=== PATIENT | female | born 1940 | race Caucasian/White ===

== ENCOUNTER → 2016-04-12 | Outpatient (CLI) | payer BC ==
[~2016-04-12] MED LIST: ANAS1TAB19 PO; ASPI81TA28 PO; CALC500C70 PO; CHOL20005 PO; CLB/200 PO; CLB100 PO; CLOP1TAB15 PO; COEN200C4 PO; CRS/10 PO; EXM25C PO; GABA-112 PO; LOPE-5 PO; LOSA1TAB PO; NRN/100 PO; PRLSR20 PO; PROC1TAB18 PO; PRT/20 PO; TRAM-10 PO; TRAS440I2 IV; ULT/50 PO
[2016-04-12 14:53] VITALS: BP 125/73; PULSE 92; TEMP 36.4; O2SAT 96
--- NOTE | 2016-04-12 16:44 | Radiation Oncology Follow-Up ---
Radiation Oncology Follow-Up Date of Visit Apr 12, 2016. Reason For Visit One-month follow-up and cancer survivorship care plan Radiation Completion Date 03/13/16 Diagnosis (1) Breast cancer Status: Resolved Onset Date: 07/23/2015 Location: 07/23/2015 Histology Subtype: ductal Stage: l (A) Permanent Comment: Abnormal left breast mammogram Status post stereotactic biopsy 07/23/2015 revealing infiltrating ductal carcinoma grade 1 Estrogen receptor positive, progesterone receptor positive, and HER-2/mario positive. Status post lumpectomy and sentinel lymph node biopsy 08/11/2015 Stage pT1b pN0M0 Oncotype DX score 28 systemic chemotherapy with TCH Will continue Herceptin for 1 year Status post completion of radiation therapy 03/13/2016 received 5130 cGy utilizing hypo-fractionation Last Edited By: Leonor Pak on Mar 24, 2016 07:57 History of Present Illness Ms. Arnett is a 75-year-old female without a family history of breast cancer. She underwent bilateral digital screening mammograms on 06/30/2014. These were unremarkable with repeat 1 year screening mammogram recommended. This was performed on 07/06/2015. At this time a grouped calcifications was noted in the left central breast posteriorly which appeared to be increased compared to the prior examination. Recommendation was for spot magnification views. Additionally a 9 mm asymmetry was seen within the left lateral breast on the CC view only of uncertain significance. On 07/16/2015 the patient underwent a unilateral left digital diagnostic mammogram and targeted left breast ultrasound. This again identified a 1.1 cm group of calcifications in the left central breast posteriorly which appeared to be increased from prior exam. These were slightly heterogeneous in morphology and were in a linear distribution. Targeted ultrasound showed no suspicious masses. These were given a BI-RADS Category 4 and a biopsy was recommended. On 07/23/2015 a stereotactic biopsy of the left breast was performed. This revealed an infiltrating ductal carcinoma Elisabet grade 1 of 3. 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 No lymphovascular or perineural invasion was seen. Estrogen receptors were positive (70%, moderate). Progesterone receptors were positive (80%, strong). HER-2/mario overexpression was positive (3+ ). The focus of carcinoma was 0.2 cm. The subsequent FISH analysis of HER-2/mario confirm the positive results obtained by IHC. Case: [id number]. Patient was seen by Dr. To Watson for evaluation and discussion of the surgical options. The patient ultimately decided to proceed with a breast conserving therapy. Therefore on 08/11/2015 the patient underwent a left partial breast mastectomy and sentinel node biopsy. 2 sentinel nodes were identified and both were negative by routine staining and by immunohistochemistry to cytokeratin. The partial mastectomy specimen confirmed residual infiltrating ductal carcinoma measuring 0.4 x 0.2 cm. 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 The margins were negative for in situ and invasive carcinoma. The presumptive AJCC stage was pT1b pN0(sn-) ER positive, [place] positive, HER-2/mario positive. Case: [id number]. Patient was seen by Dr. Johnny Goodwin for evaluation of the role of adjuvant therapy. He discussed treatment options and ordered an Oncotype DX test. Based on the preliminary pathology is plan would be to recommend local radiation followed by a year for Herceptin and 5 years of aromatase inhibitor. If however the Oncotype DX testing suggested an adverse prognosis he would discuss the potential benefits of systemic chemotherapy. It is for discussion of the role of radiation that we were asked to see the patient in referral. Her Oncotype DX score came back at 28. She therefore underwent systemic chemotherapy she received [facility]. This was completed on 01/05/2016. She will continue on Herceptin every 3 weeks for 1 year. She returned and underwent CT simulation. She was found to be a candidate for hypo-fractionation. Radiation was completed 03/13/2016. She received 5130 cGy Interim History She's been doing well over the past month. The skin irritation is steadily improved. She has noted no masses or tenderness and no change of the axilla. She's had no swelling of her arm. We reviewed follow-up mammography. She believes she is scheduled for a yearly screening mammogram. She was started on an aromatase inhibitor. She developed feelings of indigestion that occurs especially at night. She discuss this with medical oncology and she was started on Prilosec. She unfortunately has developed a rash on her scalp and right temporal area. She believes this is related to the Prilosec. She plans on holding both medications to see if her symptoms resolve. She has been in contact with medical oncology about her side effects. She has noticed that eating toms does relieve the feeling of indigestion. Allergies Coded Allergies: Hydrocodone (Verified Allergy, Unknown, RASH, HIVES, 11/13/15) PER PATIENT INTERVIEW ([id number]) PATIENT DESCRIBED ITCHY RASH (POTENTIALLY HIVES) AFTER THIRD DOSE OF NORCO, NO SHORTNESS OF BREATHE OR DIFFICULTY BREATHING. RELIEVED WITH BENADRYL. Hydrochlorothiazide w/Spironolacton (Unverified Adverse Reaction, Unknown , GI SYMPTOMS,NAUSEA AND VOMITING, 11/13/15) Sulfa Antibiotics (Verified Adverse Reaction, Unknown, "SULFA DRUGS": N/V , 11/13/15) Home Medications Scheduled Anastrozole (Arimidex), 1 TAB PO DAILY Aspirin (Aspirin Ec), 81 MG PO HS Cholecalciferol (Vitamin D3), 1 TAB PO QAM Clopidogrel (Plavix), 75 MG PO QAM Coenzyme Q10 (Ubidecarenone) (Coq-10), 200 MG PO QAM Gabapentin (Neurontin), 200 MG PO TID Losartan Potassium (Cozaar), 1 TAB PO QAM Omeprazole (Prilosec), 20 MG PO DAILY Rosuvastatin Calcium (Crestor), 10 MG PO HS Trastuzumab (Herceptin), 1 DOSE IV q3wks Scheduled PRN Loperamide Hcl (Imodium A-D), 2 TAB PO DIRECTED PRN for Diarrhea Prochlorperazine Maleate (Compazine), 10 MG PO Q6 PRN for Nausea Tramadol Hcl (Ultram), 50 MG PO Q6-8H PRN for PRN Review of Systems Gastrointestinal: Symptoms: WNL Oral: Symptoms: No Problems Respiratory: Symptoms: WNL Urinary: Symptoms: WNL Skin: Symptoms: No Problems Breast: Right Upper Arm Measurement: 27.5 Right Mid Arm Measurement: 22.0 Right Wrist Measurement: 15.0 Left Upper Arm Measurement: 28.0 Left Mid Arm Measurement: 23.0 Left Wrist Measurement: 14.8 Arm Dominence: Right Physical Exam Vital Signs Date Time Temp Pulse Resp B/P Pulse Ox O2 Delivery O2 Flow Rate FiO2 04/12/16 14:53 36.4 92 12 125/73 96 Fatigue: None General Appearance: no apparent distress, + pertinent finding (there is a mild rash of the right temporal area. There is a small similar rash in the frontal area of the scalp. These are maculopapular and there is no vesicular eruption. This is not followed dermatome.) Eyes: normal inspection, EOMI ENT: normal ENT inspection, hearing grossly normal Neck: no adenopathy, thyroid normal Respiratory/Chest: lungs clear, no respiratory distress, no accessory muscle use Breast: Breast examination reveals well-healed incisions of the left breast. There are no masses or tenderness no axillary adenopathy. Using the Raysal score of cosmesis she has a good outcome. Right breast showed no masses or tenderness no axillary adenopathy. Cardiovascular: regular rate, rhythm, no gallop, no murmur Abdomen: non tender Extremities: no pedal edema Neurologic/Psychiatric: no motor/sensory deficits, alert, normal mood/affect Skin: warm/dry Lymphatic: no adenopathy Laboratory Studies Test 01/18/16 14:11 01/26/16 13:42 02/15/16 10:13 03/08/16 09:01 Toxic Granulation 1+ Dohle Bodies 1+ Hypogranular Neutrophils 1+ Polychromasia 1+ Magnesium Level 1.5 mg/dl (1.8-2.4) Triglycerides Level 180 mg/dl (0-150) Cholesterol Level 167 mg/dl (0-200) HDL Cholesterol 61 mg/dl LDL Cholesterol, Calculated 70 mg/dl VLDL Cholesterol, Calculated 36 mg/dl Cholesterol/HDL Ratio 2.7 White Blood Count 3.75 K/uL (4.8-10.8) Red Blood Count 3.03 M/uL (4.2-5.4) Hemoglobin 10.2 g/dL (12.0-16.0) Hematocrit 30.6 % (37-47) Mean Corpuscular Volume 101.0 fL (80-100) Mean Corpuscular Hemoglobin 33.7 pg (25-34) Mean Corpuscular Hemoglobin Concent 33.3 g/dl (32-36) Platelet Count 170 K/uL (130-400) Mean Platelet Volume 8.0 fL (7.4-10.4) Neutrophils (%) (Auto) 60.6 % Lymphocytes (%) (Auto) 22.9 % Monocytes (%) (Auto) 10.9 % Eosinophils (%) (Auto) 4.8 % Basophils (%) (Auto) 0.8 % Neutrophils # (Auto) 2.27 K/uL (1.4-6.5) Lymphocytes # (Auto) 0.86 K/uL (1.2-3.4) Monocytes # (Auto) 0.41 K/uL (0.11-0.59) Eosinophils # (Auto) 0.18 K/uL (0-0.5) Basophils # (Auto) 0.03 K/uL (0-0.2) RDW Standard Deviation 47.5 fL (36.4-46.3) RDW Coefficient of Variation 12.9 % (11.5-14.5) Immature Granulocyte % (Auto) 0.0 % Immature Granulocyte # (Auto) 0.00 K/uL (0.00-0.02) Sodium Level 140 mmol/L (136-145) Potassium Level 3.8 mmol/L (3.5-5.1) Chloride Level 106 mmol/L (98-107) Carbon Dioxide Level 26 mmol/L (21-32) Anion Gap 8.0 mmol/L (3-11) Blood Urea Nitrogen 13 mg/dl (7-18) Creatinine 1.20 mg/dl (0.60-1.20) Est Creatinine Clear Calc Drug Dose 32.4 ml/min Estimated GFR () 50.5 Estimated GFR (Non- 43.6 BUN/Creatinine Ratio 10.6 (10-20) Random Glucose 105 mg/dl (70-99) Calcium Level 8.5 mg/dl (8.5-10.1) Total Bilirubin 0.3 mg/dl (0.2-1) Aspartate Amino Transferase (AST) 21 U/L (15-37) Alanine Aminotransferase (ALT) 16 U/L (12-78) Alkaline Phosphatase 50 U/L (45-117) Lactate Dehydrogenase 176 U/L (84-246) Total Protein 6.6 gm/dl (6.4-8.2) Albumin 3.5 gm/dl (3.4-5.0) Globulin 3.1 gm/dl (2.5-4.0) Albumin/Globulin Ratio 1.1 (0.9-2) Test 03/29/16 09:10 White Blood Count 3.81 K/uL (4.8-10.8) Red Blood Count 3.29 M/uL (4.2-5.4) Hemoglobin 10.8 g/dL (12.0-16.0) Hematocrit 31.7 % (37-47) Mean Corpuscular Volume 96.4 fL (80-100) Mean Corpuscular Hemoglobin 32.8 pg (25-34) Mean Corpuscular Hemoglobin Concent 34.1 g/dl (32-36) Platelet Count 185 K/uL (130-400) Mean Platelet Volume 8.4 fL (7.4-10.4) Neutrophils (%) (Auto) 56.9 % Lymphocytes (%) (Auto) 27.6 % Monocytes (%) (Auto) 7.9 % Eosinophils (%) (Auto) 6.3 % Basophils (%) (Auto) 1.3 % Neutrophils # (Auto) 2.17 K/uL (1.4-6.5) Lymphocytes # (Auto) 1.05 K/uL (1.2-3.4) Monocytes # (Auto) 0.30 K/uL (0.11-0.59) Eosinophils # (Auto) 0.24 K/uL (0-0.5) Basophils # (Auto) 0.05 K/uL (0-0.2) RDW Standard Deviation 44.2 fL (36.4-46.3) RDW Coefficient of Variation 12.6 % (11.5-14.5) Immature Granulocyte % (Auto) 0.0 % Immature Granulocyte # (Auto) 0.00 K/uL (0.00-0.02) Sodium Level 137 mmol/L (136-145) Potassium Level 3.7 mmol/L (3.5-5.1) Chloride Level 101 mmol/L (98-107) Carbon Dioxide Level 27 mmol/L (21-32) Anion Gap 9.0 mmol/L (3-11) Blood Urea Nitrogen 22 mg/dl (7-18) Creatinine 1.40 mg/dl (0.60-1.20) Est Creatinine Clear Calc Drug Dose 27.8 ml/min Estimated GFR () 41.9 Estimated GFR (Non- 36.2 BUN/Creatinine Ratio 15.6 (10-20) Random Glucose 117 mg/dl (70-99) Calcium Level 8.9 mg/dl (8.5-10.1) Magnesium Level 1.8 mg/dl (1.8-2.4) Total Bilirubin 0.3 mg/dl (0.2-1) Aspartate Amino Transferase (AST) 25 U/L (15-37) Alanine Aminotransferase (ALT) 19 U/L (12-78) Alkaline Phosphatase 52 U/L (45-117) Lactate Dehydrogenase 186 U/L (84-246) Total Protein 7.0 gm/dl (6.4-8.2) Albumin 3.7 gm/dl (3.4-5.0) Globulin 3.3 gm/dl (2.5-4.0) Albumin/Globulin Ratio 1.1 (0.9-2) Assessment & Plan We are in agreement with her holding her medication to see if her side effects resolve. She will be in contact with medical oncology and records to this outcome. The yearly screening mammogram was canceled. She was scheduled for digital diagnostic mammograms. The left breast will be imaged in 2 months and bilateral examination will be performed in 8 months. Today we completed a cancer survivorship care plan. A copy of the document was given to the patient. She was given a survivorship booklet. We asked to return to our office in 6 months. She may call our office if she has any questions or concerns in the interim. Total Time In Follow-Up I spent 20 minutes speaking to the patient and performing examination. I spent 20 minutes reviewing information, completing the survivorship document and completing this note. Copy To Messi Landis D.O.; To Watson M.D.; Johnny Rai M.D. Problem Qualifiers (1) Breast cancer: Breast location: central portion of breast Patient gender: female Laterality : left Qualified Codes: C50.112 - Malignant neoplasm of central portion of left female breast
== END | disposition home or self-care (01) ==
LOC: C.ONC 14:18
PROVIDERS: ATTEND Radiology Radiation Oncology
DX: Z08 Encounter for follow-up examination after completed treatment for malignant neoplasm (principal); Z92.3 Personal history of irradiation; Z85.3 Personal history of malignant neoplasm of breast

== ENCOUNTER → 2016-05-03 | Outpatient (CLI) | payer BC ==
--- NOTE | 2016-05-03 09:48 | DIAGNOSTIC IMAGING REPORT ---
Duplex renal arterial Doppler DUPLEX RENAL ARTERY CLINICAL HISTORY: I70.1 Renal artery [id number] TECHNIQUE: Doppler ultrasound COMPARISON STUDY: 06/05/2014 FINDINGS: Similar but somewhat improved exam in terms of visibility. Velocity characteristics bilaterally appear unremarkable. Resistive indices are unremarkable bilaterally. Maximum dimension of the right kidney is 9.4 cm. Maximum linear dimension left kidney is 8.7 cm. Mild cortical scarring bilaterally is present. IMPRESSION: No evidence for significant renal arterial stenosis. Electronically signed by: Saul Molina M.D. 05/03/2016 9:46 AM Dictated Date/Time: 05/03/2016 9:41 AM
== END | disposition home or self-care (01) ==
LOC: C.ULTR 08:19
PROVIDERS: ATTEND Internal Medicine
DX: I70.1 Atherosclerosis of renal artery (principal)

== ENCOUNTER → 2016-06-02 | Outpatient (CLI) | payer BC, OTHER ==
--- NOTE | 2016-06-02 13:50 | ECHOCARDIOGRAM REPORT ---
*NOTICE TO RECEIVING DEMOCRAT AGENCY This information is strictly Confidential and protected under [place] law. [place] law prohibits you from making any further disclosure of this information unless further disclosure is expressly permitted by the written consent of the person to whom it pertains or is authorized by law. A general authorization for the release of medical or other information is not sufficient for this purpose. Hospital accepts no responsibility if the information is made available to any other person, INCLUDING THE PATIENT. Interpretation Summary * Name: TRI PETERSON Study Date: 06/02/2016 12:34 PM BP: 115/65 mmHg * Patient Location: [facility] HR: 95 * : 1940 (M/d/yyyy) Gender: Female Height: 60 in * Age: 75 yrs Ethnicity: CA Weight: 125 lb * Ordering Physician: Nicky Garrison * Referring Physician: Nicky Garrison . [employer] * Performed By: Radha Cárdenas RDCS * * Reason For Study: NEOPLASM, BREAST CA * BSA: 1.5 m2 * History: NEOPLASM, BREAST CA * -- Conclusions -- * Left ventricular systolic function is normal. * No regional wall motion abnormalities noted. * Ejection Fraction = 60-65%. * There is borderline concentric left ventricular hypertrophy. * Grade I diastolic dysfunction, (abnormal relaxation pattern). * There is mild mitral regurgitation. * There is mild tricuspid regurgitation. Procedure Details * A complete two-dimensional transthoracic echocardiogram was performed (2D, M-mode, Doppler and color flow Doppler). Left Ventricle * The left ventricle is normal in size. * There is borderline concentric left ventricular hypertrophy. * Ejection Fraction = 60-65%. * Left ventricular systolic function is normal. * No regional wall motion abnormalities noted. Right Ventricle * The right ventricle is not well visualized. * The right ventricular systolic function is normal as assessed by tricuspid annular plane systolic excursion (TAPSE) (normal >1.5 cm). Atria * The left atrial size is normal. * Right atrial size is normal. * There is no evidence of atrial septal defect, but resolution does not allow assessment for a patent foramen ovale. Mitral Valve * The mitral valve is grossly normal. * There is no mitral valve stenosis. * There is mild mitral regurgitation. Tricuspid Valve * The tricuspid valve is not well visualized, but is grossly normal. * There is no tricuspid stenosis. * There is mild tricuspid regurgitation. Aortic Valve * The aortic valve is trileaflet. * The aortic valve opens well. * Aortic valve sclerosis mild, without significant aortic valvular stenosis. * No aortic regurgitation is present. Pulmonic Valve * The pulmonary valve is not well seen, but the Doppler examination is normal without significant regurgitation or stenosis. Great Vessels * The aortic root is normal size. * The pulmonary is not well visualized. Pericardium/Pleural * There is no pericardial effusion. Great Vessels * Normal inferior vena cava size and collapsability with sniff indicates a normal right atrial pressure of 3 mmHg Left Ventricular Diastolic Function * Grade I diastolic dysfunction, (abnormal relaxation pattern). MMode 2D Measurements and Calculations IVSd 1.1 cm IVSs 1.4 cm LVIDd 3.5 cm LVIDs 2.2 cm LVPWd 10 cm LVPWs 1.5 cm IVS/LVPW 1.1 FS 36.6 % EDV(Teich) 52.1 ml ESV(Teich) 17.0 ml EF(Teich) 67.4 % EDV(cubed) 44.1 ml ESV(cubed) 11.3 ml EF(cubed) 74.5 % % IVS thick 28.8 % % LVPW thick 46.3 % LV mass(C)d 111.2 grams LV mass(C)dI 72.7 grams/m\S\2 LV mass(C)s 101.4 grams LV mass(C)sI 66.3 grams/m\S\2 SV(Teich) 35.1 ml SI(Teich) 23.0 ml/m\S\2 SV(cubed) 32.9 ml SI(cubed) 21.5 ml/m\S\2 Ao root diam 2.7 cm Ao root area 5.7 cm\S\2 LA dimension 2.7 cm LA/Ao 1.0 LVAd ap4 20.5 cm\S\2 LVLd ap4 6.9 cm EDV(MOD-sp4) 50.5 ml EDV(sp4-el) 51.7 ml LVAs ap4 11.6 cm\S\2 LVLs ap4 5.8 cm ESV(MOD-sp4) 21.2 ml ESV(sp4-el) 19.7 ml EF(MOD-sp4) 58.0 % EF(sp4-el) 61.9 % LVAd ap2 22.6 cm\S\2 LVLd ap2 7.3 cm EDV(MOD-sp2) 59.6 ml EDV(sp2-el) 59.5 ml LVAs ap2 12.8 cm\S\2 LVLs ap2 5.9 cm ESV(MOD-sp2) 25.1 ml ESV(sp2-el) 23.6 ml EF(MOD-sp2) 57.8 % EF(sp2-el) 60.4 % LVLd %diff 5.7 % EDV(MOD-bp) 55.2 ml LVLs %diff 1.8 % ESV(MOD-bp) 23.3 ml EF(MOD-bp) 57.9 % SV(MOD-sp4) 29.3 ml SI(MOD-sp4) 19.1 ml/m\S\2 SV(MOD-sp2) 34.4 ml SI(MOD-sp2) 22.5 ml/m\S\2 SV(MOD-bp) 31.9 ml SI(MOD-bp) 20.9 ml/m\S\2 SV(sp4-el) 32.0 ml SI(sp4-el) 20.9 ml/m\S\2 SV(sp2-el) 35.9 ml SI(sp2-el) 23.5 ml/m\S\2 Doppler Measurements and Calculations MV E max kira 55.3 cm/sec MV A max kira 84.9 cm/sec MV E/A 0.65 MV dec time 0.25 sec Ao V2 max 121.0 cm/sec Ao max PG 5.9 mmHg Ao max PG (full) 3.2 mmHg LV V1 max PG 2.7 mmHg LV V1 max 81.4 cm/sec TR max kira 182.3 cm/sec
== END | disposition home or self-care (01) ==
LOC: C.CPL 12:15
PROVIDERS: ATTEND Nurse Practitioner Family
DX: C50.112 Malignant neoplasm of central portion of left female breast (principal)

== ENCOUNTER → 2016-06-09 | Outpatient (CLI) | payer BC ==
[2016-06-09 16:39] LABS: MANUAL MICROSCOPIC REQUIRED? NO; REVIEW REQ? NO; URINE APPEARANCE CLEAR (CLEAR); URINE BILIRUBIN NEG (NEG); URINE COLOR YELLOW; URINE EPITHELIAL CELL AUTO 0-5 /lpf (0-5); URINE NITRITE NEG (NEG); URINE SPECIFIC GRAVITY 1.004 (1.000-1.030); UROBILINOGEN NEG (NEG)
[2016-06-09 17:02] LABS: AMYLASE 73 U/L (25-115)
== END | disposition home or self-care (01) ==
LOC: C.LAB1850 15:51
PROVIDERS: ATTEND Internal Medicine Infectious Disease
DX: R07.9 Chest pain, unspecified (principal); K30 Functional dyspepsia; C50.912 Malignant neoplasm of unspecified site of left female breast

== ENCOUNTER → 2016-06-09 | Outpatient (CLI) | payer BC ==
--- NOTE | 2016-06-09 14:31 | MAMMOGRAPHY REPORT ---
BILATERAL DIGITAL DIAGNOSTIC MAMMOGRAM TOMOSYNTHESIS WITH CAD: 06/09/2016 CLINICAL HISTORY: History of left breast cancer status post lumpectomy 08/11/2015 as well as radiatio n therapy. The patient reports no current complaints. TECHNIQUE: Breast tomosynthesis in addition to standard 2D mammography was performed. Current study was also evaluated with a Computer Aided Detection (CAD) system. Bilateral CC and MLO 2-D and mervat synthesis images and spot magnification left CC and ML views were obtained. COMPARISON: Comparison is made to exams dated: 08/11/2015 specimen, 08/11/2015 localization, 6 mammogram, and 07/06/2015 mammogram - [facility]. BREAST COMPOSITION: The tissue of both breasts is heterogeneously dense, which may obscure small ma sses. FINDINGS: There are new expected postsurgical changes in the left central breast from prior lumpect chris, including new density, architectural distortion, and surgical clips at the lumpectomy bed. Spo t magnification views of the lumpectomy bed demonstrate no suspicious masses or clusters of microcal cifications. The remainder of both breasts are stable compared to prior exams, without suspicious masses, calcifi cations, or areas of architectural distortion noted. Scattered bilateral benign-appearing punctate and vascular calcifications are again noted. IMPRESSION: ACR-BI-RADS CATEGORY 3: PROBABLY BENIGN Expected post treatment changes in the left breast, without mammographic evidence of malignancy in e ither breast. Recommend follow-up diagnostic tomosynthesis mammograms of the left breast in 6 month s to reevaluate the posttreatment changes. The patient has been verbally notified of the results. Approximately 10% of breast cancers are not detected with mammography. A negative mammographic repor t should not delay biopsy if a clinically suggestive mass is present. Rosina Mar M.D. ah/:06/09/2016 10:22:34 Fabric Finisher: Qiana BENNETT)(Moni), [facility] letter sent: Personal History 3 BI-RADS Code: ACR-BI-RADS Category 3: Probably Benign
== END | disposition home or self-care (01) ==
LOC: C.MAMM 08:29
PROVIDERS: ATTEND Radiology Radiation Oncology
DX: C50.912 Malignant neoplasm of unspecified site of left female breast (principal)

== ENCOUNTER → 2016-06-16 | Outpatient (CLI) | payer BC ==
--- NOTE | 2016-06-16 08:59 | DIAGNOSTIC IMAGING REPORT ---
ABDOMEN COMPLETE (US) CLINICAL HISTORY: Left upper quadrant and generalized abdominal pain COMPARISON STUDY: No previous studies for comparison. FINDINGS: The pancreas appears sonographically normal. The gallbladder appears sonographically normal. No focal hepatic masses are visualized. There is mild borderline increase in hepatic echogenicity. There is no ductal dilatation. The common bile duct measures 5 mm. No splenic masses are visualized. The spleen measures 9.7 cm diameter. The right kidney measures 9.4 cm in length. The left kidney measures 8.6 cm in length. No focal renal masses are visualized. There is no evidence of hydronephrosis. There is minor bilateral renal cortical thinning. There is mild aneurysmal dilatation of the abdominal aorta which measures 3.3 cm in maximal diameter. IMPRESSION: 1. Abdominal aortic aneurysm measuring 3.3 cm in maximal diameter 2. No hepatic, pancreatic, splenic, or renal masses identified 3. Ultrasonographically normal gallbladder. No evidence of ductal dilatation Electronically signed by: Vernon Shaikh M.D. 06/16/2016 8:58 AM Dictated Date/Time: 06/16/2016 8:56 AM
== END | disposition home or self-care (01) ==
LOC: C.ULTR 07:56
PROVIDERS: ATTEND Physician Assistant Medical
DX: R10.32 Left lower quadrant pain (principal); R10.12 Left upper quadrant pain; I71.4 Abdominal aortic aneurysm, without rupture

== ENCOUNTER → 2016-06-23 | Outpatient (CLI) | payer BC ==
[~2016-06-23] MED LIST changes: +OMEG10007 PO
== END | disposition home or self-care (01) ==
LOC: C.MAMM 10:20
PROVIDERS: ATTEND Nurse Practitioner Family
DX: C50.919 Malignant neoplasm of unspecified site of unspecified female breast (principal); M85.851 Other specified disorders of bone density and structure, right thigh; M85.852 Other specified disorders of bone density and structure, left thigh

== ENCOUNTER → 2016-08-23 | Outpatient (CLI) | payer BC ==
[2016-08-23 12:38] LABS: CHOLESTEROL/HDL RATIO 3.3
== END | disposition home or self-care (01) ==
LOC: C.LABBFT 08:23
PROVIDERS: ATTEND Internal Medicine Pulmonary Disease
DX: E78.5 Hyperlipidemia, unspecified (principal); M79.7 Fibromyalgia; M48.06 Spinal stenosis, lumbar region; I25.10 Atherosclerotic heart disease of native coronary artery without angina pectoris; I10 Essential (primary) hypertension; C50.912 Malignant neoplasm of unspecified site of left female breast

== ENCOUNTER → 2016-09-11 | Outpatient (CLI) | payer BC ==
--- NOTE | 2016-09-11 14:45 | ECHOCARDIOGRAM REPORT ---
*NOTICE TO RECEIVING REPUBLICAN AGENCY This information is strictly Confidential and protected under [place] law. [place] law prohibits you from making any further disclosure of this information unless further disclosure is expressly permitted by the written consent of the person to whom it pertains or is authorized by law. A general authorization for the release of medical or other information is not sufficient for this purpose. Hospital accepts no responsibility if the information is made available to any other person, INCLUDING THE PATIENT. Interpretation Summary * Name: TRI PETERSON Study Date: 09/11/2016 12:59 PM BP: 133/78 mmHg * Patient Location: [facility] HR: 85 * : 1940 (M/d/yyyy) Gender: Female Height: 60 in * Age: 76 yrs Ethnicity: CA Weight: 130 lb * Ordering Physician: Nicky Garrison * Referring Physician: Nicky Garrison . 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 Normal LV size. Mild concentric LVH. * 2. Normal LV systolic function. LVEF 65-70%. No regional wall motion abnormalities. * 3. Normal RV size and function. * 4. Mild aortic valve sclerosis without stenosis. * 5. Mild mitral regurgitation, tricuspid regurgitation. * 6. Grade I diastolic dysfunction. * 7. Normal estimated PA and RA pressures. * 8. Compared with prior study on 06/02/2016: No significant change. Procedure Details * A complete two-dimensional transthoracic echocardiogram was performed (2D, M-mode, Doppler and color flow Doppler). * The study was technically difficult. Left Ventricle * The left ventricle is grossly normal size. * There is mild concentric left ventricular hypertrophy. * Ejection Fraction = 65-70%. * No regional wall motion abnormalities noted. Right Ventricle * The right ventricle is grossly normal size. * The right ventricular systolic function is normal as assessed by tricuspid annular plane systolic excursion (TAPSE) (normal >1.5 cm). Atria * The left atrial size is normal. * The right atrium is mildly dilated. * No ASD detected; PFO is not assessed. Mitral Valve * The mitral valve is grossly normal. * There is no mitral valve stenosis. * There is mild mitral regurgitation. Tricuspid Valve * The tricuspid valve is not well visualized, but is grossly normal. * There is no tricuspid stenosis. * There is mild tricuspid regurgitation. Aortic Valve * Aortic valve sclerosis mild, without significant aortic valvular stenosis. * No hemodynamically significant valvular aortic stenosis. Pulmonic Valve * The pulmonary valve is inadequately visualized, but the Doppler data is adequate for interpretation. * Pulmonic stenosis is absent. * Trace pulmonic valvular regurgitation. Great Vessels * The aortic root and proximal ascending aorta are normal sized. Pericardium/Pleural * There is no pericardial effusion. Great Vessels * Normal inferior vena cava size and collapsability with sniff indicates a normal right atrial pressure of 3 mmHg Left Ventricular Diastolic Function * Grade I diastolic dysfunction, (abnormal relaxation pattern). MMode 2D Measurements and Calculations IVSd 1.3 cm IVSs 1.5 cm LVIDd 3.3 cm LVIDs 2.1 cm LVPWd 1.3 cm LVPWs 1.6 cm IVS/LVPW 1.0 FS 35.7 % EDV(Teich) 43.0 ml ESV(Teich) 14.4 ml EF(Teich) 66.6 % EDV(cubed) 34.8 ml ESV(cubed) 9.2 ml EF(cubed) 73.4 % % IVS thick 12.5 % % LVPW thick 23.1 % LV mass(C)d 139.5 grams LV mass(C)dI 89.7 grams/m\S\2 LV mass(C)s 107.3 grams LV mass(C)sI 69.0 grams/m\S\2 SV(Teich) 28.6 ml SI(Teich) 18.4 ml/m\S\2 SV(cubed) 25.6 ml SI(cubed) 16.4 ml/m\S\2 ACS 0.76 cm LA dimension 3.1 cm asc Aorta Diam 3.1 cm LVOT diam 1.8 cm LVOT area 2.5 cm\S\2 LVAd ap4 23.2 cm\S\2 LVLd ap4 6.8 cm EDV(MOD-sp4) 66.0 ml LVAs ap4 11.8 cm\S\2 LVLs ap4 5.7 cm ESV(MOD-sp4) 21.0 ml EF(MOD-sp4) 68.2 % SV(MOD-sp4) 45.0 ml SI(MOD-sp4) 29.0 ml/m\S\2 Doppler Measurements and Calculations MV E max kira 63.2 cm/sec MV A max kira 91.8 cm/sec MV E/A 0.69 MV dec time 0.27 sec Ao V2 max 136.4 cm/sec Ao max PG 7.4 mmHg Ao max PG (full) 5.0 mmHg FRIDA(V,A) 1.4 cm\S\2 FRIDA(V,D) 1.4 cm\S\2 LV V1 max PG 2.4 mmHg LV V1 max 77.4 cm/sec PA V2 max 61.7 cm/sec PA max PG 1.5 mmHg PI end-d kira 78.7 cm/sec
== END | disposition home or self-care (01) ==
LOC: C.CPL 12:37
PROVIDERS: ATTEND Nurse Practitioner Family
DX: C50.112 Malignant neoplasm of central portion of left female breast (principal)

== ENCOUNTER → 2016-09-13 | Outpatient (CLI) | payer BC ==
[2016-09-13 12:15] LABS: BASO ABS # 0.05 K/uL (0-0.2); COMPLETE YES; EOS % 9.4 %; HEMATOCRIT 35.9 % (37-47); IG% 0.2 %; LYMPH ABS # 1.22 K/uL (1.2-3.4); MEAN CELL VOLUME 95.5 fL (80-100); MEAN CORPUSCULAR HEMOGLOBIN 32.4 pg (25-34); MEAN PLATELET VOLUME 8.6 fL (7.4-10.4); MONO % 9.6 %; NEUT % 54.8 %; PLATELET COUNT 204 K/uL (130-400); RED BLOOD COUNT 3.76 M/uL (4.2-5.4); WHITE BLOOD COUNT 4.88 K/uL (4.8-10.8)
[2016-09-13 13:13] LABS: ALB/GLOB RATIO 1.1 (0.9-2); ALKALINE PHOSPHATASE 67 U/L (45-117); ALT/SGPT 26 U/L (12-78); AST/SGOT 25 U/L (15-37); BLOOD UREA NITROGEN 21 mg/dl (7-18); BUN/CREATININE RATIO 12.9 (10-20); CALCIUM 8.4 mg/dl (8.5-10.1); CARBON DIOXIDE 26 mmol/L (21-32); CHLORIDE 103 mmol/L (98-107); GLUCOSE 101 mg/dl (70-99); POTASSIUM 4.2 mmol/L (3.5-5.1); SODIUM 139 mmol/L (136-145)
== END | disposition home or self-care (01) ==
LOC: C.LABBFT 10:05
PROVIDERS: ATTEND Internal Medicine Pulmonary Disease
DX: C50.112 Malignant neoplasm of central portion of left female breast (principal)

== ENCOUNTER → 2016-10-06 | Day surgery (SDC) | payer BC ==
[2016-09-28 15:52] VITALS: Ht 152.4 cm; Wt 59.5 kg
[~2016-10-06] VITALS: Ht 152.4 cm; Wt 59.5 kg
[~2016-10-06] MED LIST changes: -ANAS1TAB19 PO; +ATROPINE SULFATE 0.1 MG/ML 5ML SYR IV PRN; -CALC500C70 PO; +CEFAZOLIN 2000 MG/60 ML D5W IV SCH; -CLB100 PO; +EpHEDrine SULFATE INJ 50 MG/ML AMP IV PRN; +FENTANYL CITRATE INJ 50 MCG/1 ML 2 ML VIAL IV PRN; +FENTANYL CITRATE INJ 50 MCG/1 ML 2 ML VIAL ONE; +LACTATED RINGER'S 1000ML 1,000 ML IV SCH; +LIDOCAINE HCL 1% 20 ML VIAL ONE; +LIDOCAINE HCL 2% 2 ML VIAL (20MG/ML) ONE; -LOPE-5 PO; +MIDAZOLAM HCL 1 MG/ML 2ML VIAL ONE; -NRN/100 PO; -OMEG10007 PO; +ONDANSETRON INJ 2 MG/ML 2 ML VIAL IV PRN; -PRLSR20 PO; -PROC1TAB18 PO; +PROMETHAZINE HCL INJ 6.25 MG in SODIUM CHLORIDE 0.9% 50ML 50 ML IV PRN; +PROPOFOL IV EMULSION 10 MG/ML 20 ML VIAL IV ONE; +SODIUM CHLORIDE 0.9% 1000ML 1,000 ML IV SCH; +TRAMADOL HCL 50 MG TAB PO PRN; -TRAS440I2 IV
--- NOTE | 2016-10-06 07:40 | History & Physical Bridge - SC ---
H&P Re-Evaluation Bridge Note: I have examined the patient, reviewed the History & Physical and in the interval since the performance of the History & Physical I have noted the following changes of clinical significance: No changes noted
[2016-10-06 08:29] VITALS: TEMP 36.3
--- NOTE | 2016-10-06 08:44 | Discharge Instructions-SurgCtr ---
Discharge Instructions Date of Service Oct 06, 2016. Visit Reason for Visit: Breast Cancer, Left Discharge Discharge Diagnosis / Problem: abnormal mammo Discharge Goals Goal(s): Decrease discomfort, Improve function, Improve disease control Activity Recommendations Activity Limitations: as noted below Lifting Limitations: gradually increase as tolerated Exercise/Sports Limitations: until after follow-up appointment May Resume Sexual Activity: when tolerated Shower/Bathe: tomorrow Driving or Machine Use: resume 1 day after discharge SPECIAL CARE INSTRUCTIONS: * Cover incisions and change daily for comfort/drainage. * May use ibuprofen for pain as tolerated. * Expect some swelling and bruising. Call your doctor if: * Temperature above 101 degrees * Pain not relieved by pain medicine ordered * There is increased drainage or redness from any incision * You have any unanswered questions or concerns [phone]. FOLLOW UP VISIT: If not already scheduled, please call the office for a follow-up visit. for 2 weeks- suture removal OFFICE PHONE NUMBER: Dr. Watson Office Anesthesia . Post Anesthesia Instructions: If you have had General Anesthesia or IV Sedation: * Do not drive today. * Resume driving when surgeon permits. * Do not make important decisions or sign legal documents today. * Call surgeon for: 1. Temperature elevations greater than 101 degrees F. 2. Uncontrollable pain. 3. Excessive bleeding. 4. Persistent nausea and vomiting. 5. Medication intolerance (nausea, vomiting or rash). * For nausea and vomiting use only clear liquids such as: tea, soda, bouillon until nausea subsides, then gradually increase diet as tolerated. * If you have any concerns or questions, call your surgeon's office. If physician is unavailable and it is an emergency, call 911 or go to the nearest emergency room. . Diet Recommendations Home Diet: resume previous diet Procedures Procedures Performed: Removal Of A-port Pending Studies Studies pending at discharge: no Medical Emergencies . Who to Call and When: Medical Emergencies: If at any time you feel your situation is an emergency, please call 911 immediately. . Non-Emergent Contact Non-Emergency issues call your: Primary Care Provider, Surgeon . . "Provider Documentation" section prepared by To Watson. .
--- NOTE | 2016-10-06 08:45 | [facility] Operative Report ---
Operative Report Operative Date Oct 06, 2016. Pre-Operative Diagnosis Breast cancer, left Port Catheter in place. Post-Operative Diagnosis same as preop Procedure(s) Performed Removal Of A-port Surgeon Dr. To Watson Mid Level Clinician Surgeon(s) none Estimated Blood Loss 5ML Findings port Specimens A: A-Port Anesthesia local/sedation Complication(s) None Disposition Recovery Room / PACU Description of Procedure Vision was brought in the operating room placed table in the supine position. Her right upper chest was prepped and draped in usual fashion. 1% plain lidocaine was used to anesthetize the old scar just above the port. Incision was made carried dissection down dissecting the port away from the pocket. The port and catheter were removed. The tunnel was oversewn using 2-0 chromic catgut suture. T she was reapproximated using 2-0 chromic suture. It was reapproximated using 4-0 nylon suture. A dressing applied and patient transferred to recovery area in stable condition. I attest to the content of the Intraoperative Record and any orders documented therein. Any exceptions are noted below.
[2016-10-06 09:01] VITALS: BP 152/82; PULSE 80; O2SAT 95
--- NOTE | 2016-10-06 09:01 | Anesthesiology Progress Note ---
Anesthesia Post Op Note Date & Time Oct 06, 2016 at 09:00 Vital Signs Pain Intensity: 0 Vital Signs Past 12 Hours Date Time Temp Pulse Resp B/P (MAP) Pulse Ox O2 Delivery O2 Flow Rate FiO2 10/06/16 08:29 36.3 89 16 116/71 (86) 96 Room Air 10/06/16 07:02 36.5 81 22 151/91 (111) 95 Room Air Notes Mental Status: alert / awake / arousable, participated in evaluation Pt Amnestic to Procedure: Yes Nausea / Vomiting: adequately controlled Pain: adequately controlled Airway Patency, RR, SpO2: stable & adequate BP & HR: stable & adequate Hydration State: stable & adequate Anesthetic Complications: no major complications apparent
== END | disposition home or self-care (01) ==
LOC: X.SURG 06:46
PROVIDERS: ATTEND Surgery
DX: Z45.2 Encounter for adjustment and management of vascular access device (principal); Z85.3 Personal history of malignant neoplasm of breast; I71.4 Abdominal aortic aneurysm, without rupture; I25.10 Atherosclerotic heart disease of native coronary artery without angina pectoris; E78.5 Hyperlipidemia, unspecified; M79.7 Fibromyalgia; I10 Essential (primary) hypertension; G62.9 Polyneuropathy, unspecified; M85.80 Other specified disorders of bone density and structure, unspecified site; I70.1 Atherosclerosis of renal artery; M13.0 Polyarthritis, unspecified

== ENCOUNTER → 2016-10-11 | Outpatient (CLI) | payer BC ==
[~2016-10-11] MED LIST changes: -ATROPINE SULFATE 0.1 MG/ML 5ML SYR IV PRN; +CALC500C70 PO; -CEFAZOLIN 2000 MG/60 ML D5W IV SCH; -EpHEDrine SULFATE INJ 50 MG/ML AMP IV PRN; -FENTANYL CITRATE INJ 50 MCG/1 ML 2 ML VIAL IV PRN; -FENTANYL CITRATE INJ 50 MCG/1 ML 2 ML VIAL ONE; -LACTATED RINGER'S 1000ML 1,000 ML IV SCH; -LIDOCAINE HCL 1% 20 ML VIAL ONE; -LIDOCAINE HCL 2% 2 ML VIAL (20MG/ML) ONE; -MIDAZOLAM HCL 1 MG/ML 2ML VIAL ONE; -ONDANSETRON INJ 2 MG/ML 2 ML VIAL IV PRN; -PROMETHAZINE HCL INJ 6.25 MG in SODIUM CHLORIDE 0.9% 50ML 50 ML IV PRN; -PROPOFOL IV EMULSION 10 MG/ML 20 ML VIAL IV ONE; -SODIUM CHLORIDE 0.9% 1000ML 1,000 ML IV SCH; -TRAMADOL HCL 50 MG TAB PO PRN
[2016-10-11 14:20] VITALS: BP 110/71; PULSE 104; TEMP 37.1; O2SAT 96
--- NOTE | 2016-10-11 16:42 | Radiation Oncology Follow-Up ---
Radiation Oncology Follow-Up Date of Visit Oct 11, 2016. Reason For Visit 6 month follow-up Radiation Completion Date 03/13/16 Hypofractionation Diagnosis (1) Breast cancer Status: Resolved Onset Date: 07/23/2015 Histology Subtype: ductal Stage: l (A) Permanent Comment: Abnormal left breast mammogram Status post stereotactic biopsy 07/23/2015 revealing infiltrating ductal carcinoma grade 1 Estrogen receptor positive, progesterone receptor positive, and HER-2/mario positive. Status post lumpectomy and sentinel lymph node biopsy 08/11/2015 Stage pT1b pN0M0 Oncotype DX score 28 systemic chemotherapy with TCH Will continue Herceptin for 1 year Status post completion of radiation therapy 03/13/2016 received 5130 cGy utilizing hypo-fractionation Last Edited By: Leonor Pak on Mar 24, 2016 07:57 History of Present Illness Ms. Peterson is a 75-year-old female without a family history of breast cancer. She underwent bilateral digital screening mammograms on 06/30/2014. These were unremarkable with repeat 1 year screening mammogram recommended. This was performed on 07/06/2015. At this time a grouped calcifications was noted in the left central breast posteriorly which appeared to be increased compared to the prior examination. Recommendation was for spot magnification views. Additionally a 9 mm asymmetry was seen within the left lateral breast on the CC view only of uncertain significance. On 07/16/2015 the patient underwent a unilateral left digital diagnostic mammogram and targeted left breast ultrasound. This again identified a 1.1 cm group of calcifications in the left central breast posteriorly which appeared to be increased from prior exam. These were slightly heterogeneous in morphology and were in a linear distribution. Targeted ultrasound showed no suspicious masses. These were given a BI-RADS Category 4 and a biopsy was recommended. On 07/23/2015 a stereotactic biopsy of the left breast was performed. This revealed an infiltrating ductal carcinoma [place] grade 1 of 3. 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 No lymphovascular or perineural invasion was seen. Estrogen receptors were positive (70%, moderate). Progesterone receptors were positive (80%, strong). HER-2/mario overexpression was positive (3+ ). The focus of carcinoma was 0.2 cm. The subsequent FISH analysis of HER-2/mario confirm the positive results obtained by IHC. Case: [id number]. Patient was seen by Dr. To Watson for evaluation and discussion of the surgical options. The patient ultimately decided to proceed with a breast conserving therapy. Therefore on 08/11/2015 the patient underwent a left partial breast mastectomy and sentinel node biopsy. 2 sentinel nodes were identified and both were negative by routine staining and by immunohistochemistry to cytokeratin. The partial mastectomy specimen confirmed residual infiltrating ductal carcinoma measuring 0.4 x 0.2 cm. 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 The margins were negative for in situ and invasive carcinoma. The presumptive AJCC stage was pT1b pN0(sn-) ER positive, TN positive, HER-2/mario positive. Case: [id number]. Patient was seen by Dr. Johnny Goodwin for evaluation of the role of adjuvant therapy. He discussed treatment options and ordered an Oncotype DX test. Based on the preliminary pathology is plan would be to recommend local radiation followed by a year for Herceptin and 5 years of aromatase inhibitor. If however the Oncotype DX testing suggested an adverse prognosis he would discuss the potential benefits of systemic chemotherapy. It is for discussion of the role of radiation that we were asked to see the patient in referral. Her Oncotype DX score came back at 28. She therefore underwent systemic chemotherapy she received TCH. This was completed on 01/05/2016. She will continue on Herceptin every 3 weeks for 1 year. She returned and underwent CT simulation. She was found to be a candidate for hypo-fractionation. Radiation was completed 03/13/2016. She received 5130 cGy Interim History She's been doing well over the past 6 months. She has noted no changes to her breast. Her been no masses or tenderness and no change of the axilla. She's had no swelling of her arm. She is up-to-date on mammography. She had a mammogram 06/09/2016. This showed expected postsurgical changes in the left breast, without mammographic evidence of malignancy in either breast. Recommend follow-up diagnostic tomosynthesis mammograms of the left breast in 6 months. BI-RADS Category 3. She is on Arimidex and denies side effects. She had her port removed last week. She is concerned about possible infection. An area of redness developed above the incision line and is getting larger. She is not due for suture removal until next . Allergies Coded Allergies: Hydrocodone (Verified Allergy, Unknown, RASH, HIVES, 10/06/16) PER PATIENT INTERVIEW ([id number]) PATIENT DESCRIBED ITCHY RASH (POTENTIALLY HIVES) AFTER THIRD DOSE OF NORCO, NO SHORTNESS OF BREATHE OR DIFFICULTY BREATHING. RELIEVED WITH BENADRYL. Hydrochlorothiazide w/Spironolacton (Unverified Adverse Reaction, Unknown , GI SYMPTOMS,NAUSEA AND VOMITING, 10/06/16) Sulfa Antibiotics (Verified Adverse Reaction, Unknown, "SULFA DRUGS": N/V , 10/06/16) Home Medications Scheduled Aspirin (Aspirin Ec), 81 MG PO HS Calcium/Vitamin D (Os-Efren 500 Plus D), 1 TAB PO DAILY Celecoxib (CeleBREX), 200 MG PO HS Cholecalciferol (Vitamin D3), 1 TAB PO QAM Clopidogrel (Plavix), 75 MG PO QAM Coenzyme Q10 (Ubidecarenone) (Coq-10), 200 MG PO QAM Exemestane (Aromasin), 1 TAB PO NOON Gabapentin (Neurontin), 2 CAP PO TID Losartan Potassium (Cozaar), 1 TAB PO QAM Rosuvastatin Calcium (Crestor), 10 MG PO HS Scheduled PRN Pantoprazole (Protonix), 20 MG PO DAILY PRN for HEARTBURN Tramadol (Ultram), 50-100 MG PO Q6 Hrs PRN for Pain Review of Systems Gastrointestinal: Symptoms: WNL Oral: Symptoms: No Problems Respiratory: Symptoms: WNL Urinary: Symptoms: WNL Skin: Symptoms: No Problems Breast: Right Upper Arm Measurement: 27.5 Right Mid Arm Measurement: 22.5 Right Wrist Measurement: 15.5 Left Upper Arm Measurement: 29.0 Left Mid Arm Measurement: 23.0 Left Wrist Measurement: 15.0 Arm Dominence: Right Physical Exam Vital Signs Date Time Temp Pulse Resp B/P (MAP) Pulse Ox O2 Delivery O2 Flow Rate FiO2 10/11/16 14:20 37.1 104 12 110/71 96 Fatigue: None General Appearance: no apparent distress Eyes: normal inspection, EOMI ENT: normal ENT inspection, hearing grossly normal Neck: supple, no adenopathy, thyroid normal Respiratory/Chest: lungs clear, no respiratory distress, no accessory muscle use, + pertinent finding (there is a suture line in the upper anterior chest. There is an area of erythema which extends above the incision line. There is a small tiny pustule at the suture site on 2 of the sutures.) Breast: Breast examination reveals well-healed incision of the left breast. There are no masses or tenderness and no axillary adenopathy. Using the [place] score cosmesis she has a excellent outcome. Right breast showed no masses or tenderness and no axillary adenopathy. Cardiovascular: regular rate, rhythm, no gallop, no murmur Abdomen: normal bowel sounds, non tender Extremities: no pedal edema Neurologic/Psychiatric: no motor/sensory deficits, alert, normal mood/affect Skin: warm/dry Laboratory Studies Test 08/23/16 08:26 08/30/16 10:30 09/13/16 10:12 09/20/16 10:25 Triglycerides Level 148 mg/dl (0-150) Cholesterol Level 120 mg/dl (0-200) HDL Cholesterol 36 mg/dl LDL Cholesterol, Calculated 54 mg/dl VLDL Cholesterol, Calculated 30 mg/dl Cholesterol/HDL Ratio 3.3 Est Creatinine Clear Calc Drug Dose 25.5 ml/min 22.5 ml/min White Blood Count 4.88 K/uL (4.8-10.8) 4.64 K/uL (4.8-10.8) Red Blood Count 3.76 M/uL (4.2-5.4) 3.89 M/uL (4.2-5.4) Hemoglobin 12.2 g/dL (12.0-16.0) 11.9 g/dL (12.0-16.0) Hematocrit 35.9 % (37-47) 36.1 % (37-47) Mean Corpuscular Volume 95.5 fL (80-100) 92.8 fL (80-100) Mean Corpuscular Hemoglobin 32.4 pg (25-34) 30.6 pg (25-34) Mean Corpuscular Hemoglobin Concent 34.0 g/dl (32-36) 33.0 g/dl (32-36) Platelet Count 204 K/uL (130-400) 198 K/uL (130-400) Mean Platelet Volume 8.6 fL (7.4-10.4) 8.5 fL (7.4-10.4) Neutrophils (%) (Auto) 54.8 % 52.4 % Lymphocytes (%) (Auto) 25.0 % 28.4 % Monocytes (%) (Auto) 9.6 % 7.8 % Eosinophils (%) (Auto) 9.4 % 10.1 % Basophils (%) (Auto) 1.0 % 1.1 % Neutrophils # (Auto) 2.67 K/uL (1.4-6.5) 2.43 K/uL (1.4-6.5) Lymphocytes # (Auto) 1.22 K/uL (1.2-3.4) 1.32 K/uL (1.2-3.4) Monocytes # (Auto) 0.47 K/uL (0.11-0.59) 0.36 K/uL (0.11-0.59) Eosinophils # (Auto) 0.46 K/uL (0-0.5) 0.47 K/uL (0-0.5) Basophils # (Auto) 0.05 K/uL (0-0.2) 0.05 K/uL (0-0.2) RDW Standard Deviation 45.6 fL (36.4-46.3) 43.0 fL (36.4-46.3) RDW Coefficient of Variation 13.3 % (11.5-14.5) 12.7 % (11.5-14.5) Immature Granulocyte % (Auto) 0.2 % 0.2 % Immature Granulocyte # (Auto) 0.01 K/uL (0.00-0.02) 0.01 K/uL (0.00-0.02) Sodium Level 139 mmol/L (136-145) 135 mmol/L (136-145) Potassium Level 4.2 mmol/L (3.5-5.1) 4.2 mmol/L (3.5-5.1) Chloride Level 103 mmol/L (98-107) 100 mmol/L (98-107) Carbon Dioxide Level 26 mmol/L (21-32) 27 mmol/L (21-32) Anion Gap 10.0 mmol/L (3-11) 8.0 mmol/L (3-11) Blood Urea Nitrogen 21 mg/dl (7-18) 27 mg/dl (7-18) Creatinine 1.60 mg/dl (0.60-1.20) 1.70 mg/dl (0.60-1.20) Estimated GFR () 35.4 32.9 Estimated GFR (Non- 30.5 28.4 BUN/Creatinine Ratio 12.9 (10-20) 16.0 (10-20) Random Glucose 101 mg/dl (70-99) 128 mg/dl (70-99) Calcium Level 8.4 mg/dl (8.5-10.1) 8.9 mg/dl (8.5-10.1) Total Bilirubin 0.3 mg/dl (0.2-1) 0.4 mg/dl (0.2-1) Aspartate Amino Transferase (AST) 25 U/L (15-37) 25 U/L (15-37) Alanine Aminotransferase (ALT) 26 U/L (12-78) 24 U/L (12-78) Alkaline Phosphatase 67 U/L (45-117) 58 U/L (45-117) Lactate Dehydrogenase 282 U/L (84-246) 294 U/L (84-246) Total Protein 7.1 gm/dl (6.4-8.2) 7.2 gm/dl (6.4-8.2) Albumin 3.7 gm/dl (3.4-5.0) 3.8 gm/dl (3.4-5.0) Globulin 3.4 gm/dl (2.5-4.0) 3.4 gm/dl (2.5-4.0) Albumin/Globulin Ratio 1.1 (0.9-2) 1.1 (0.9-2) Magnesium Level 2.1 mg/dl (1.8-2.4) Additional Studies Patient: TRI PETERSON [facility] Rec: [id number] Address1: [address] [place] [address] Address2: [facility] ID: [id number] Date: 1940 Sex: F Ref Phy: Johnny Rai M.D. Att Phy: Leonor Pak PA-C Diana Phy: Johnny Rai M.D. Inter Phy: Rosina Mar MD [facility] Zip: [place] [address] SC: [id number] Report #: [id number] Loan Processor: LAURI Diagnosis: F/U S/P RADIATION LEFT Service Date: 06/09/16 MNE: [id number] Ordering Dr: Leonor Pak PA-C CC: Leonor Pak PA-C CONF: DICTATED BY: Rosina Mar MD MAMMOGRAPHY REPORT BILATERAL DIGITAL DIAGNOSTIC MAMMOGRAM TOMOSYNTHESIS WITH CAD: 06/09/2016 CLINICAL HISTORY: History of left breast cancer status post lumpectomy 2015 as well as radiation therapy. The patient reports no current complaints. TECHNIQUE: Breast tomosynthesis in addition to standard 2D mammography was performed. Current study was also evaluated with a Computer Aided Detection (CAD ) system. Bilateral CC and MLO 2-D and tomosynthesis images and spot magnification left CC and ML views were obtained. COMPARISON: Comparison is made to exams dated: 08/11/2015 specimen, 08/11/2015 localization, 07/16/2015 mammogram, and 07/06/2015 mammogram - [facility]. BREAST COMPOSITION: The tissue of both breasts is heterogeneously dense, which may obscure small masses. FINDINGS: There are new expected postsurgical changes in the left central breast from prior lumpectomy, including new density, architectural distortion, and surgical clips at the lumpectomy bed. Spot magnification views of the lumpectomy bed demonstrate no suspicious masses or clusters of microcalcifications. The remainder of both breasts are stable compared to prior exams, without suspicious masses, calcifications, or areas of architectural distortion noted. Scattered bilateral benign-appearing punctate and vascular calcifications are again noted. IMPRESSION: ACR-BI-RADS CATEGORY 3: PROBABLY BENIGN Expected post treatment changes in the left breast, without mammographic evidence of malignancy in either breast. Recommend follow-up diagnostic tomosynthesis mammograms of the left breast in 6 months to reevaluate the posttreatment changes. The patient has been verbally notified of the results. Approximately 10% of breast cancers are not detected with mammography. A negative mammographic report should not delay biopsy if a clinically suggestive mass is present. Rosina Mar M.D. ah/:06/09/2016 10:22:34 Company Manager: Qiana PEREZ(Rachel)(Moni), [facility] letter sent: Personal History 3 BI-RADS Code: ACR-BI-RADS Category 3: Probably Benign Dictated by: Rosina Mar MD Signed by: Rosina Mar MD Assessment & Plan Plan: Prescription was given for cephalexin 250 mg 1 by mouth 4 times a day for one week. I've asked her to call Dr. Watson's office if she does not have decreased redness along the incision line. We discussed that this could be a foreign body reaction to the sutures or infection. She'll continue with scheduled mammography. She continues on the Arimidex. Continue follow-up with Dr. Landis, Dr. Watson, Dr. Rai. We asked her to return to our office in 1 year. She may call if she has any questions or concerns in the interim. Total Time In Follow-Up I spent 20 minutes speaking to the patient performing examination. I spent 15 minutes reviewing information and completing this note. Copy To Messi Landis, [place]ison; To Watson M.D.; Johnny Rai M.D. Problem Qualifiers (1) Breast cancer: Breast location: central portion of breast Estrogen receptor status: positive Patient sex: female Laterality: left Qualified Codes: C50.112 - Malignant neoplasm of central portion of left female breast; Z17.0 - Estrogen receptor positive status [ER+]
== END | disposition home or self-care (01) ==
LOC: C.ONC 14:03
PROVIDERS: ATTEND Physician Assistant Medical
DX: Z08 Encounter for follow-up examination after completed treatment for malignant neoplasm (principal); Z92.3 Personal history of irradiation; Z85.3 Personal history of malignant neoplasm of breast

== ENCOUNTER → 2016-12-11 | Outpatient (CLI) | payer BC ==
[~2016-12-11] MED LIST changes: -ULT/50 PO
--- NOTE | 2016-12-11 13:09 | MAMMOGRAPHY REPORT ---
UNILATERAL LEFT DIGITAL DIAGNOSTIC MAMMOGRAM TOMOSYNTHESIS WITH CAD: 12/11/2016 CLINICAL HISTORY: 76-year-old woman with a personal history of left breast cancer status post lumpect chris and radiation therapy with treatment in July 2015. She presents for close follow-up of the left b reast. TECHNIQUE: Left CC and MLO 2-D and tomosynthesis images, spot magnification left CC and ML views were obtained. Current study was also evaluated with a Computer Aided Detection (CAD) system. COMPARISON: Comparison is made to exams dated: 06/09/2016 mammogram, 07/16/2015 ultrasound, 07/16/2015 mammogram, 07/06/2015 mammogram, 06/30/2014 mammogram, and 06/25/2013 mammogram - [facility] nt. BREAST COMPOSITION: The tissue of the left breast is heterogeneously dense, which may obscure small masses. FINDINGS: There is expected architectural distortion and surgical clips in the far posterior retroare olar left breast, at the site of prior lumpectomy. No obvious new mass, unexpected architectural dis tortion or developing asymmetries identified. There are vascular calcifications in the left breast, but no new suspicious clustered calcifications are identified. IMPRESSION: ACR-BI-RADS CATEGORY 3: PROBABLY BENIGN There are expected post treatment changes in the left breast, without definite mammographic evidence of malignancy. The patient is due for bilateral mammography in 6 months, with continued close follow -up of the left breast. Given that it is difficult to include posterior tissue and surgical clips in the [id number] on the CC projections, may consider breast MRI for additional surveillance in the future, to ensure adequate assessment of all breast tissue. These results and recommendations were discussed with the patient at the time of the exam. Approximately 10% of breast cancers are not detected with mammography. A negative mammographic report should not delay biopsy if a clinically suggestive mass is present. Lorri Ness M.D. ay/:12/11/2016 09:11:29 Rocket Motor Mechanic: Jasmina BENNETT)(Moni), [facility] letter sent: Follow Up Recommended 3 BI-RADS Code: ACR-BI-RADS Category 3: Probably Benign
== END | disposition home or self-care (01) ==
LOC: C.MAMM 08:24
PROVIDERS: ATTEND Physician Assistant Medical
DX: R92.2 Inconclusive mammogram (principal); Z85.3 Personal history of malignant neoplasm of breast; Z92.3 Personal history of irradiation

== ENCOUNTER → 2016-12-15 | Outpatient (CLI) | payer BC ==
[2016-12-15 12:23] LABS: BASO % 0.6 %; BASO ABS # 0.04 K/uL (0-0.2); COMPLETE YES; EOS % 2.6 %; HEMATOCRIT 37.7 % (37-47); IG% 0.2 %; LYMPH % 22.9 %; LYMPH ABS # 1.43 K/uL (1.2-3.4); MEAN CORPUSCULAR HEMOGLOBIN 32.5 pg (25-34); MEAN CORPUSCULAR HGB CONC 34.2 g/dl (32-36); MEAN PLATELET VOLUME 9.1 fL (7.4-10.4); MONO % 7.2 %; NEUT % 66.5 %; PLATELET COUNT 223 K/uL (130-400); RED BLOOD COUNT 3.97 M/uL (4.2-5.4); WHITE BLOOD COUNT 6.25 K/uL (4.8-10.8)
[2016-12-15 12:43] LABS: ALT/SGPT 26 U/L (12-78); AST/SGOT 25 U/L (15-37); BLOOD UREA NITROGEN 19 mg/dl (7-18); BUN/CREATININE RATIO 11.6 (10-20); CALCIUM 8.8 mg/dl (8.5-10.1); CARBON DIOXIDE 25 mmol/L (21-32); CHLORIDE 107 mmol/L (98-107); GLUCOSE 109 mg/dl (70-99); POTASSIUM 3.9 mmol/L (3.5-5.1); SODIUM 141 mmol/L (136-145)
[2016-12-15 12:46] LABS: ALB/GLOB RATIO 1.1 (0.9-2); ALKALINE PHOSPHATASE 71 U/L (45-117)
== END | disposition home or self-care (01) ==
LOC: C.LABBFT 09:05
PROVIDERS: ATTEND Nurse Practitioner Family
DX: C50.112 Malignant neoplasm of central portion of left female breast (principal)

== ENCOUNTER → 2017-02-09 | Outpatient (CLI) | payer BC ==
[~2017-02-09] MED LIST changes: +OMEG10007 PO
--- NOTE | 2017-02-09 10:47 | DIAGNOSTIC IMAGING REPORT ---
R HIP UNILATERAL 2 VIEWS CLINICAL HISTORY: RIGHT HIP PAIN pain COMPARISON: None. DISCUSSION: Moderate degenerative change right hip. Mild calcific trochanteric bursitis. No evidence for acetabular protrusion. The pubic ring is intact. There is no evidence for soft tissue swelling. IMPRESSION: 1. Mild calcific trochanteric bursitis. 2. Moderate degenerative change right hip joint space. 3. No acute bony abnormality. The above report was generated using voice recognition software. It may contain grammatical, syntax or spelling errors. Electronically signed by: Saul Molina M.D. 02/09/2017 10:46 AM Dictated Date/Time: 02/09/2017 10:45 AM
== END | disposition home or self-care (01) ==
LOC: C.RADBC 09:29
PROVIDERS: ATTEND Anesthesiology
DX: M25.551 Pain in right hip (principal)

== ENCOUNTER → 2017-02-21 | Outpatient (CLI) | payer BC ==
[2017-02-21 12:26] LABS: CHOLESTEROL/HDL RATIO 3.9
== END | disposition home or self-care (01) ==
LOC: C.LABBFT 08:28
PROVIDERS: ATTEND Internal Medicine Pulmonary Disease
DX: E78.5 Hyperlipidemia, unspecified (principal); M13.0 Polyarthritis, unspecified; C50.912 Malignant neoplasm of unspecified site of left female breast; I70.1 Atherosclerosis of renal artery; I10 Essential (primary) hypertension; I71.4 Abdominal aortic aneurysm, without rupture

== ENCOUNTER → 2017-06-01 | Outpatient (CLI) | payer BC ==
[~2017-06-01] MED LIST changes: -TRAM-10 PO
[2017-06-01 12:22] LABS: BASO % 0.5 %; BASO ABS # 0.03 K/uL (0-0.2); EOS % 3.4 %; EOS ABS # 0.19 K/uL (0-0.5); HEMATOCRIT 42.2 % (37-47); HEMOGLOBIN 14.3 g/dL (12.0-16.0); IG# 0.01 K/uL (0.00-0.02); LYMPH % 30.7 %; LYMPH ABS # 1.73 K/uL (1.2-3.4); MEAN CELL VOLUME 97.5 fL (80-100); MEAN CORPUSCULAR HGB CONC 33.9 g/dl (32-36); MEAN PLATELET VOLUME 9.2 fL (7.4-10.4); MONO % 9.9 %; MONO ABS # 0.56 K/uL (0.11-0.59); NEUT % 55.3 %; NEUT ABS # 3.11 K/uL (1.4-6.5); PLATELET COUNT 219 K/uL (130-400); RED CELL DISTRIBUTION WIDTH CV 13.1 % (11.5-14.5); RED CELL DISTRIBUTION WIDTH SD 46.5 fL (36.4-46.3); WHITE BLOOD COUNT 5.63 K/uL (4.8-10.8)
[2017-06-01 12:29] LABS: BLOOD UREA NITROGEN 22 mg/dl (7-18); CALCIUM 9.1 mg/dl (8.5-10.1); CARBON DIOXIDE 28 mmol/L (21-32); CREATININE 1.59 mg/dl (0.60-1.20); GLUCOSE 82 mg/dl (70-99); POTASSIUM 4.4 mmol/L (3.5-5.1); SODIUM 137 mmol/L (136-145)
== END | disposition home or self-care (01) ==
LOC: C.LABBFT 08:47
PROVIDERS: ATTEND Physician Assistant
DX: N28.9 Disorder of kidney and ureter, unspecified (principal)

== ENCOUNTER → 2017-06-14 | Outpatient (CLI) | payer BC ==
[~2017-06-14] MED LIST changes: +GADAVIST IV PRN
--- NOTE | 2017-06-18 12:44 | MAMMOGRAPHY REPORT ---
BREAST MRI OF BOTH BREASTS : 06/14/2017 CLINICAL HISTORY: History of left breast cancer status post lumpectomy July 2015 and radiation therapy . COMPARISON: Comparison is made to exams dated: 12/11/2016 mammogram, 06/09/2016 mammogram, 06/14/2017 m ammogram, 06/14/2017 ultrasound, and 07/23/2015 mammogram - [facility]. Technique: The patient was placed prone in a dedicated breast imaging coil. Precontrast axial T1-maddie ghted, axial T2-weighted fat saturation, and axial T1-weighted fat saturation images were obtained. After the administration of 6 mL of Gadavist IV contrast, sequential T1-weighted fat saturation image s were obtained. Subtraction images were obtained of the dynamic contrast enhanced sequences, and 3- D reformations were performed. The groSolar software was used for kinetic analysis. Findings: Right breast: There is mild background parenchymal enhancement. There are no suspicious enhancing ma sses or areas of abnormal non-mass enhancement seen within the right breast. Left breast: There is mild background parenchymal enhancement. There are postsurgical changes seen w ithin the left central/subareolar breast and left 5 to 6:00 breast from prior lumpectomy. A T2 hyper intense, nonenhancing fluid collection is seen at the surgical bed which measures 2.2 x 0.7 cm and is consistent with a small postsurgical seroma (series 4 image 40). A few small subcentimeter patchy a reas of enhancement are seen in the region of the surgical bed in the left central breast far posteri marisol, which demonstrate predominantly persistent and plateau kinetics (series [id number] images 71 and 67) . Additionally, there is another patchy 6 mm area of enhancement within the left subareolar breast a t approximately 3:00, which also demonstrates a mixed persistent and plateau kinetic pattern (series [id number] image 76). The remainder of the left breast is negative, without suspicious masses or areas of abnormal non-mass enhancement seen. There is no evidence of axillary adenopathy. The chest wall structures are negative. Extramammary s oft tissues are grossly unremarkable. IMPRESSION: ACR-BI-RADS CATEGORY 3: PROBABLY BENIGN 1. No MRI evidence of malignancy in the right breast. 2. Postsurgical changes in the left breast status post lumpectomy. A few subcentimeter patchy areas of enhancement are seen at the surgical bed in the left central posterior breast and in the left 3:0 0 subareolar breast. The patient was seen for a diagnostic workup in the same day, and ultrasound wa s performed of these regions which showed no clear suspicious abnormalities. The findings are probab ly benign and likely represent postsurgical changes/fat necrosis. Recommend follow-up bilateral livier st MRI in 6 months to reevaluate. Rosina Mar M.D. 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
== END | disposition home or self-care (01) ==
LOC: C.MRI 07:52
PROVIDERS: ATTEND Nurse Practitioner Family
DX: C50.112 Malignant neoplasm of central portion of left female breast (principal)

== ENCOUNTER → 2017-06-14 | Outpatient (CLI) | payer BC ==
[~2017-06-14] MED LIST changes: -GADAVIST IV PRN
--- NOTE | 2017-06-18 12:44 | MAMMOGRAPHY REPORT ---
BILATERAL DIGITAL DIAGNOSTIC MAMMOGRAM TOMOSYNTHESIS WITH CAD AND TARGETED LEFT ULTRASOUND: 06/14/2017 CLINICAL HISTORY: History of left breast cancer status post lumpectomy July 2015 as well as radiation therapy. The patient reports continued left breast discomfort since her surgery. TECHNIQUE: Breast tomosynthesis in addition to standard 2D mammography was performed. Current study was also evaluated with a Computer Aided Detection (CAD) system. Bilateral CC and MLO 2D and tomosyn thesis images and spot magnification left CC and ML views were obtained. COMPARISON: Comparison is made to exams dated: 12/11/2016 mammogram, 06/09/2016 mammogram, 07/16/2015 m ammogram, 07/06/2015 mammogram, 06/30/2014 mammogram, and 06/25/2013 mammogram - [facility]. BREAST COMPOSITION: The tissue of both breasts is heterogeneously dense, which may obscure small mas ses. FINDINGS: Again noted are post surgical changes in the left central posterior breast from prior lumpe ctomy, including stable density and architectural distortion at the surgical bed. Note that the surg ical clips at the lumpectomy bed are not included due to the far posterior location. Spot magnificat ion views of the lumpectomy bed demonstrate no suspicious masses or clusters of calcifications. The remainder of both breasts are stable compared to prior exams, without suspicious masses, calcificatio ns, or areas of architectural distortion noted. Scattered bilateral benign-appearing calcifications are not significantly changed. The patient underwent breast MRI the same day, and the images show a few patchy areas of enhancement within the left central posterior breast and left 3:00 subareolar breast. Therefore, ultrasound was performed of these regions. The background parenchymal echotexture is markedly heterogeneous with mu ltiple areas of shadowing seen which reduces the sensitivity of the exam. There are expected postsur gical changes in the left 5 to 6:00 and central breast from prior lumpectomy, including an oval anech oic fluid collection measuring 3.2 x 0.7 cm consistent with a benign postsurgical seroma centered at 5:00. The dense shadowing of the post surgical changes at the surgical bed also limits evaluation of the more posterior tissue. However, within the limitations of the exam, there are no clear suspicio us masses or other suspicious sonographic abnormalities that would correspond with the areas of enhan cement seen on MRI. IMPRESSION: ACR-BI-RADS CATEGORY 3: PROBABLY BENIGN, TARGETED ULTRASOUND ACR-BI-RADS CATEGORY 3: PRO BABLY BENIGN 1. Stable posttreatment changes in the left breast, without mammographic evidence of malignancy in e ither breast. Recommend bilateral diagnostic tomosynthesis mammograms in 12 months. 2. No suspicious sonographic correlates are seen for the patchy areas of enhancement within the left breast seen on breast MRI performed the same day. The areas of enhancement on MRI are probably daphne gn and likely represent postsurgical changes/fat necrosis. Recommend bilateral breast MRI in 6 month s to reevaluate. The patient was verbally notified of the results. Approximately 10% of breast cancers are not detected with mammography. A negative mammographic report should not delay biopsy if a clinically suggestive mass is present. Rosina Mar M.D. ah/:06/14/2017 17:21:04 Wellness Program Manager: Tobias PEREZ(R)(M), [facility] letter sent: Follow Up Recommended 3 BI-RADS Code: ACR-BI-RADS Category 3: Probably Benign Ultrasound BI-RADS: ACR-BI-RADS Category 3: Pr obably Benign
== END | disposition home or self-care (01) ==
LOC: C.MAMM 10:53
PROVIDERS: ATTEND Physician Assistant Medical
DX: Z85.3 Personal history of malignant neoplasm of breast (principal)

== ENCOUNTER → 2017-06-15 | Outpatient (CLI) | payer BC ==
[2017-06-15 12:42] LABS: BASO % 0.9 %; BASO ABS # 0.06 K/uL (0-0.2); EOS % 4.6 %; EOS ABS # 0.29 K/uL (0-0.5); HEMATOCRIT 39.7 % (37-47); HEMOGLOBIN 13.7 g/dL (12.0-16.0); IG# 0.01 K/uL (0.00-0.02); LYMPH % 33.1 %; MEAN CELL VOLUME 97.1 fL (80-100); MEAN CORPUSCULAR HEMOGLOBIN 33.5 pg (25-34); MEAN CORPUSCULAR HGB CONC 34.5 g/dl (32-36); MEAN PLATELET VOLUME 9.1 fL (7.4-10.4); MONO % 9.6 %; MONO ABS # 0.61 K/uL (0.11-0.59); NEUT % 51.6 %; NEUT ABS # 3.27 K/uL (1.4-6.5); PLATELET COUNT 229 K/uL (130-400); RED CELL DISTRIBUTION WIDTH SD 45.8 fL (36.4-46.3); WHITE BLOOD COUNT 6.34 K/uL (4.8-10.8)
[2017-06-15 12:55] LABS: ALBUMIN 3.9 gm/dl (3.4-5.0); ALT/SGPT 25 U/L (12-78); AST/SGOT 21 U/L (15-37); BLOOD UREA NITROGEN 19 mg/dl (7-18); CALCIUM 8.8 mg/dl (8.5-10.1); CARBON DIOXIDE 26 mmol/L (21-32); CREATININE 1.49 mg/dl (0.60-1.20); GLUCOSE 82 mg/dl (70-99); POTASSIUM 4.1 mmol/L (3.5-5.1); SODIUM 138 mmol/L (136-145)
[2017-06-15 12:58] LABS: ALKALINE PHOSPHATASE 53 U/L (45-117); TOTAL PROTEIN 7.4 gm/dl (6.4-8.2)
== END | disposition home or self-care (01) ==
LOC: C.LABBFT 08:10
PROVIDERS: ATTEND Nurse Practitioner Family
DX: C50.112 Malignant neoplasm of central portion of left female breast (principal)

== ENCOUNTER → 2017-06-25 | Outpatient (CLI) | payer BC ==
--- NOTE | 2017-06-25 09:42 | DIAGNOSTIC IMAGING REPORT ---
DUPLEX RENAL ARTERY CLINICAL HISTORY: 76 years-old Female presenting with E78.5 Dyslipidemia Arrive at the [facility] 30 min prior.[id number]. TECHNIQUE: Real-time grayscale and color and spectral Doppler ultrasound imaging of the kidneys was performed. COMPARISON: 05/03/2016. FINDINGS: Right kidney: Normal echogenicity of renal parenchyma. Right kidney measures 10.3 cm. No hydronephrosis. No convincing evidence of calculus or mass. Intrarenal resistive indices range from 0.55 to 0.62. Normal intrarenal arterial waveforms. Renal artery patent with peak systolic velocity 167 cm/s proximally, 82 cm/s in the midportion, and 78 cm/s distally. Renal vein patent. Left kidney: Normal echogenicity of renal parenchyma. Left kidney measures 9.5 cm. No hydronephrosis. No convincing evidence of calculus or mass. Intrarenal resistive indices range from 0.59 to 0.62. Normal intrarenal arterial waveforms. Renal artery patent with peak systolic velocity 104 cm/s proximally, 113 cm/s in the midportion, and 54 cm/s distally. Renal vein patent. Abdominal aorta: Patent. Peak systolic velocity 41 cm/s. Ratio of right renal artery PSV/aortic PSV: 4.07. Ratio of left renal artery PSV/aortic PSV: 2.76. Other: None. Reference ranges: Normal main renal artery peak systolic velocity less than 180 cm/s. Ratio of renal artery PSV to aortic PSV less than 3.5 equates to normal or less than 60% stenosis. Only one of the two criteria listed needs to be met for diagnosis. IMPRESSION: 1. Findings consistent with right renal artery stenosis, which is new from prior. Electronically signed by: Edgard Cartwright M.D. 06/25/2017 9:40 AM Dictated Date/Time: 06/25/2017 9:36 AM
== END | disposition home or self-care (01) ==
LOC: C.ULTR 08:37
PROVIDERS: ATTEND Physician Assistant Medical
DX: E78.5 Hyperlipidemia, unspecified (principal); I71.4 Abdominal aortic aneurysm, without rupture

== ENCOUNTER → 2017-06-25 | Outpatient (CLI) | payer BC ==
--- NOTE | 2017-06-25 09:40 | DIAGNOSTIC IMAGING REPORT ---
ABDOMINAL AORTIC ULTRASOUND CLINICAL HISTORY: ABDOMINAL AORTIC ANEURYSM COMPARISON STUDY: 06/16/2016 FINDINGS: The proximal aorta measures 31 x 29 mm. The mid abdominal aorta measures 31 x 31 mm. The distal abdominal aorta measures 29 x 24 mm. The right iliac measures 13 mm. The left iliac measures 9 mm. IMPRESSION: 1. Minimal aneurysmal dilatation of the abdominal aorta which measures 31 mm in maximal diameter. This remains essentially stable. Electronically signed by: Vernon Shaikh M.D. 06/25/2017 9:39 AM Dictated Date/Time: 06/25/2017 9:37 AM
== END | disposition home or self-care (01) ==
LOC: C.ULTR 08:45
PROVIDERS: ATTEND Physician Assistant Medical
DX: I71.4 Abdominal aortic aneurysm, without rupture (principal)

== ENCOUNTER → 2017-07-17 | Outpatient (CLI) | payer BC ==
[~2017-07-17] MED LIST changes: -CLB/200 PO; +GADAVIST IV PRN; -OMEG10007 PO; -PRT/20 PO; +TRAM-10 PO
--- NOTE | 2017-07-17 14:15 | DIAGNOSTIC IMAGING REPORT ---
MRI OF THE LUMBAR SPINE COMBO CLINICAL HISTORY: Lumbar radiculopathy. COMPARISON STUDY: Radiographs of the lumbar spine dated 07/06/2017. Abdominal CT dated 03/06/2012. TECHNIQUE: MRI of the lumbar spine is performed utilizing various T1 and T2-weighted sequences in the axial and sagittal planes. Contrast-enhanced sequences were acquired following the IV administration of 6.1 cc of Gadavist. FINDINGS: Lumbar spine: There is a transitional lumbosacral vertebral body which will be labeled L5 for the purposes of today's examination. Vertebral body height is maintained throughout the lumbar spine. There is minimal anterolisthesis at L3-L4 and L4-L5. Alignment is otherwise maintained. The transverse and spinous processes appear intact. There is no evidence of spondylolysis. No destructive bony lesion is seen. Intervertebral discs: Degenerative disc desiccation is seen throughout the lumbar spine. Mild to moderate loss of height is seen at L3-L4. Mild loss of height is present at L4-L5. Spinal cord: The partially visualized spinal cord is normal in morphology. The conus medullaris terminates at the level of L1. The nerve roots of the cauda equina are normal in morphology. These are tethered at L3-L4. No abnormal enhancement is identified on the postcontrast sequences. L1-L2: There is a small posterior disc bulge. The central canal and neural foramina are patent. L2-L3: There is a broad-based posterior disc bulge with annular fissure. In conjunction with hypertrophy of the ligamentum flavum, there is moderate central canal stenosis at this level with a minimum AP canal diameter of 6 mm. There is bilateral subarticular stenosis. The disc bulge abuts the exiting bilateral L2 as well as the transiting bilateral L3 nerve roots. L3-L4: There is a large posterior disc bulge with annular fissure. In conjunction with hypertrophy of the ligamentum flavum, there is severe central canal stenosis at this level with a minimum AP diameter of 3.5 mm. There is tethering of the nerve roots of the cauda equina at this level. There is bilateral subarticular stenosis, with impingement on the exiting bilateral L3 nerve roots. Facet arthropathy causes mild bilateral neural foraminal stenosis. L4-L5: There is a broad-based posterior disc bulge with annular fissure. There is no significant acquired compromise of the central canal at this level. Facet arthropathy causes mild left neural foraminal stenosis. L5-S1: The central canal and neural foramina are patent. Again, there is partial sacralization of the body of L5. Soft tissues: There is mild fatty atrophy of the paraspinous musculature. The partially imaged kidneys demonstrate cortical atrophy. No retroperitoneal adenopathy is seen. Sacrum: The visualized sacrum is normal in morphology and signal intensity. IMPRESSION: 1. There is a transitional lumbosacral vertebral body which will be labeled L5 for the purposes of today's examination. 2. There is severe central canal stenosis at L3-L4 and moderate central canal stenosis at L2-L3. See above discussion for detailed level by level analysis. 3. No destructive bony lesion is identified. Dictated: 07/17/2017 1:34 PM Transcribed: 07/17/2017 2:15 PM [email or web address] Electronically signed by: Amado Goode M.D. 07/17/2017 2:20 PM Dictated Date/Time: 07/17/2017 1:34 PM
== END | disposition home or self-care (01) ==
LOC: C.MRIBC 10:52
PROVIDERS: ATTEND Anesthesiology
DX: M54.16 Radiculopathy, lumbar region (principal); M48.061 Spinal stenosis, lumbar region without neurogenic claudication; Z85.3 Personal history of malignant neoplasm of breast

== ENCOUNTER → 2017-10-16 | Outpatient (CLI) | payer BC ==
[~2017-10-16] MED LIST changes: -GADAVIST IV PRN
[2017-10-16 12:59] VITALS: BP 136/79; PULSE 96; TEMP 36.6; O2SAT 95
--- NOTE | 2017-10-16 16:38 | Radiation Oncology Follow-Up ---
Radiation Oncology Follow-Up Date of Visit Oct 16, 2017. Reason For Visit Annual follow-up Radiation Completion Date Hypofractionation 03/13/16 Diagnosis (1) Breast cancer Status: Resolved Onset Date: 07/23/2015 Histology Subtype: Ductal Stage: l (A) Permanent Comment: Abnormal left breast mammogram Status post stereotactic biopsy 07/23/2015 revealing infiltrating ductal carcinoma grade 1 Estrogen receptor positive, progesterone receptor positive, and HER-2/mario positive. Status post lumpectomy and sentinel lymph node biopsy 08/11/2015 Stage pT1b pN0M0 Oncotype DX score 28 systemic chemotherapy with TCH Will continue Herceptin for 1 year Status post completion of radiation therapy 03/13/2016 received 5130 cGy utilizing hypo-fractionation Last Edited By: Leonor Pak on Mar 24, 2016 07:57 History of Present Illness Ms. Peterson is without a family history of breast cancer. She underwent bilateral digital screening mammograms on 06/30/2014. These were unremarkable with repeat 1 year screening mammogram recommended. This was performed on 07/06/2015. At this time a grouped calcifications was noted in the left central breast posteriorly which appeared to be increased compared to the prior examination. Recommendation was for spot magnification views. Additionally a 9 mm asymmetry was seen within the left lateral breast on the CC view only of uncertain significance. On 07/16/2015 the patient underwent a unilateral left digital diagnostic mammogram and targeted left breast ultrasound. This again identified a 1.1 cm group of calcifications in the left central breast posteriorly which appeared to be increased from prior exam. These were slightly heterogeneous in morphology and were in a linear distribution. Targeted ultrasound showed no suspicious masses. These were given a BI-RADS Category 4 and a biopsy was recommended. On 07/23/2015 a stereotactic biopsy of the left breast was performed. This revealed an infiltrating ductal carcinoma Hamilton grade 1 of 3. 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 No lymphovascular or perineural invasion was seen. Estrogen receptors were positive (70%, moderate). Progesterone receptors were positive (80%, strong). HER-2/mario overexpression was positive (3+ ). The focus of carcinoma was 0.2 cm. The subsequent FISH analysis of HER-2/mario confirm the positive results obtained by IHC. Case: [id number]. Patient was seen by Dr. To Watson for evaluation and discussion of the surgical options. The patient ultimately decided to proceed with a breast conserving therapy. Therefore on 08/11/2015 the patient underwent a left partial breast mastectomy and sentinel node biopsy. 2 sentinel nodes were identified and both were negative by routine staining and by immunohistochemistry to cytokeratin. The partial mastectomy specimen confirmed residual infiltrating ductal carcinoma measuring 0.4 x 0.2 cm. 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 The margins were negative for in situ and invasive carcinoma. The presumptive AJCC stage was pT1b pN0(sn-) ER positive, TN positive, HER-2/mario positive. Case: [id number]. Patient was seen by Dr. Johnny Goodwin for evaluation of the role of adjuvant therapy. He discussed treatment options and ordered an Oncotype DX test. Based on the preliminary pathology is plan would be to recommend local radiation followed by a year for Herceptin and 5 years of aromatase inhibitor. If however the Oncotype DX testing suggested an adverse prognosis he would discuss the potential benefits of systemic chemotherapy. It is for discussion of the role of radiation that we were asked to see the patient in referral. Her Oncotype DX score came back at 28. She therefore underwent systemic chemotherapy she received TC. This was completed on 01/05/2016. She will continue on Herceptin every 3 weeks for 1 year. She returned and underwent CT simulation. She was found to be a candidate for hypo-fractionation. Radiation was completed 03/13/2016. She received 5130 cGy Interim History She has been doing well over this past year in regards to her breast. She is noted no masses or tenderness no change of the axilla. She has had no swelling of her arm. She is up-to-date on mammography. She has had issues with her hair and nails following chemotherapy. She did start a vitamin for hair, nails , and skin. This did help with her fingernails. She no longer has breaking of the nails. The vitamin is not helping with the alopecia. Her hair is very thin. She was not satisfied with the legs that she had obtained. She did not care for the appearance and these were warm and caused itching. Today she described a burning sensation that she gets in her chest that radiates to her neck. This began a few weeks ago. It happens especially with increased activity. Coming up her cellar steps and working in the house. This occurs especially with sweeping carpet. She also has had complaint of generalized joint pain. She has tramadol and gabapentin. Allergies Coded Allergies: Hydrocodone (Verified Allergy, Unknown, RASH, HIVES, 07/24/17) PER PATIENT INTERVIEW ([id number]) PATIENT DESCRIBED ITCHY RASH (POTENTIALLY HIVES) AFTER THIRD DOSE OF NORCO, NO SHORTNESS OF BREATHE OR DIFFICULTY BREATHING. RELIEVED WITH BENADRYL. Hydrochlorothiazide w/Spironolacton (Unverified Adverse Reaction, Unknown , GI SYMPTOMS,NAUSEA AND VOMITING, 07/24/17) Sulfa Antibiotics (Verified Adverse Reaction, Unknown, "SULFA DRUGS": N/V , 07/24/17) Home Medications Scheduled Aspirin (Aspirin Ec), 81 MG PO HS Calcium/Vitamin D (Os-Efren 500 Plus D), 1 TAB PO DAILY Cholecalciferol (Vitamin D3), 1 TAB PO QAM Clopidogrel (Plavix), 75 MG PO QAM Coenzyme Q10 (Ubidecarenone) (Coq-10), 200 MG PO QAM Exemestane (Aromasin), 1 TAB PO NOON Gabapentin (Neurontin), 2 CAP PO TID Losartan Potassium (Cozaar), 1 TAB PO QAM Rosuvastatin Calcium (Crestor), 10 MG PO HS Scheduled PRN Tramadol (Ultram), 50 MG PO Q8H PRN for Pain Review of Systems Gastrointestinal: Symptoms: WNL Oral: Symptoms: No Problems Respiratory: Symptoms: SOB With Exertion Other Respiratory: When she has the sensations in chest described below Urinary: Symptoms: WNL Skin: Symptoms: No Problems Breast: Right Upper Arm Measurement: 28.5 Right Mid Arm Measurement: 23.0 Right Wrist Measurement: 15.5 Left Upper Arm Measurement: 29.5 Left Mid Arm Measurement: 23.5 Left Wrist Measurement: 15.3 Arm Dominence: Right Physical Exam Vital Signs Date Time Temp Pulse Resp B/P (MAP) Pulse Ox O2 Delivery O2 Flow Rate FiO2 10/16/17 12:59 36.6 96 12 136/79 95 Fatigue: None General Appearance: no apparent distress Eyes: normal inspection, EOMI ENT: normal ENT inspection, hearing grossly normal Neck: no adenopathy, thyroid normal Respiratory/Chest: lungs clear, no respiratory distress, no accessory muscle use Breast: Breast examination reveals well-healed incisions of the left breast. There are no masses or tenderness and no axillary adenopathy. There are no skin retractions or nipple changes. Using the [place] score cosmesis she has an excellent outcome. The right breast showed no masses or tenderness and no axillary adenopathy. Cardiovascular: regular rate, rhythm, no gallop, no murmur Extremities: no pedal edema Neurologic/Psychiatric: no motor/sensory deficits, alert, normal mood/affect Skin: warm/dry Pain Management Patient Reports Pain: Yes Initial Pain Intensity: 4.5 Pain Management Plan She has generalized joint pain. For this she takes Ultram and gabapentin. Laboratory Laboratory Results: not applicable Pathology Pathology Results: were reviewed, and pertinent findings noted in HPI Imaging Imaging Studies: were reviewed, and pertinent findings noted below Imaging Comments Patient: TRI PETERSON [facility] Rec: [id number] Address1: [address] [place] [address] Address2: [facility] ID: [id number] Date: 1940 Sex: F Ref Phy: Leonor Pak PA-C Att Phy: Leonor Pak PA-C Diana Phy: Johnny Rai M.D. Inter Phy: Rosina Mar MD [facility] Zip: [place] [address] SC: NatyMAMM Report #: [id number] Induction Machine Operator: BIJAL Diagnosis: 6 MONTH F/U BILATERAL Service Date: 06/14/17 MNE: [id number] Ordering Dr: Leonor Pak PA-C CC: Leonor Pak PA-C CONF: DICTATED BY: Rosina Mar MD MAMMOGRAPHY REPORT BILATERAL DIGITAL DIAGNOSTIC MAMMOGRAM TOMOSYNTHESIS WITH CAD AND TARGETED LEFT ULTRASOUND: 06/14/2017 CLINICAL HISTORY: History of left breast cancer status post lumpectomy July 2015 as well as radiation therapy. The patient reports continued left breast discomfort since her surgery. TECHNIQUE: Breast tomosynthesis in addition to standard 2D mammography was performed. Current study was also evaluated with a Computer Aided Detection (CAD ) system. Bilateral CC and MLO 2D and tomosynthesis images and spot magnification left CC and ML views were obtained. COMPARISON: Comparison is made to exams dated: 12/11/2016 mammogram, 06/09/2016 mammogram, 07/16/2015 mammogram, 07/06/2015 mammogram, 06/30/2014 mammogram, and 06/25 mammogram - [facility]. BREAST COMPOSITION: The tissue of both breasts is heterogeneously dense, which may obscure small masses. FINDINGS: Again noted are post surgical changes in the left central posterior breast from prior lumpectomy, including stable density and architectural distortion at the surgical bed. Note that the surgical clips at the lumpectomy bed are not included due to the far posterior location. Spot magnification views of the lumpectomy bed demonstrate no suspicious masses or clusters of calcifications. The remainder of both breasts are stable compared to prior exams, without suspicious masses, calcifications, or areas of architectural distortion noted. Scattered bilateral benign-appearing calcifications are not significantly changed. The patient underwent breast MRI the same day, and the images show a few patchy areas of enhancement within the left central posterior breast and left 3:00 subareolar breast. Therefore, ultrasound was performed of these regions. The background parenchymal echotexture is markedly heterogeneous with multiple areas of shadowing seen which reduces the sensitivity of the exam. There are expected postsurgical changes in the left 5 to 6:00 and central breast from prior lumpectomy, including an oval anechoic fluid collection measuring 3.2 x 0.7 cm consistent with a benign postsurgical seroma centered at 5:00. The dense shadowing of the post surgical changes at the surgical bed also limits evaluation of the more posterior tissue. However, within the limitations of the exam, there are no clear suspicious masses or other suspicious sonographic abnormalities that would correspond with the areas of enhancement seen on MRI. IMPRESSION: ACR-BI-RADS CATEGORY 3: PROBABLY BENIGN, TARGETED ULTRASOUND ACR-BI -RADS CATEGORY 3: PROBABLY BENIGN 1. Stable posttreatment changes in the left breast, without mammographic evidence of malignancy in either breast. Recommend bilateral diagnostic tomosynthesis mammograms in 12 months. 2. No suspicious sonographic correlates are seen for the patchy areas of enhancement within the left breast seen on breast MRI performed the same day. The areas of enhancement on MRI are probably benign and likely represent postsurgical changes/fat necrosis. Recommend bilateral breast MRI in 6 months to reevaluate. The patient was verbally notified of the results. Approximately 10% of breast cancers are not detected with mammography. A negative mammographic report should not delay biopsy if a clinically suggestive mass is present. Rosina Mar M.D. ah/:06/14/2017 17:21:04 Mincing Machine Operator: Tobias Spencer RTBelkis)(M), [facility] letter sent: Follow Up Recommended 3 BI-RADS Code: ACR-BI-RADS Category 3: Probably Benign Ultrasound BI-RADS: ACR- BI-RADS Category 3: Probably Benign Dictated by: Rosina Mar MD Signed by: Rosina Mar MD Additional Studies Patient: TRI PETERSON [facility] Rec: [id number] Address1: [address] [place] [address] Address2: [employer] ID: [id number] Date: 1940 Sex: F Ref Phy: Nicky Garrison CRNP Att Phy: Nicky Garrison CRNP Diana Phy: Johnny Rai M.D. Inter Phy: Rosina Mar MD [facility]: [place] [address] SC: C.MRI Report #: [id number] Induction Machine Operator: KATHERIN Diagnosis: LEFT BREAST CA Service Date: 06/14/17 MNE: [id number] Ordering Dr: Nicky Garrison CC: Leonor Pak PA-C CONF: DICTATED BY: Rosina Mar MD MAMMOGRAPHY REPORT BREAST MRI OF BOTH BREASTS : 06/14/2017 CLINICAL HISTORY: History of left breast cancer status post lumpectomy July 2015 and radiation therapy. COMPARISON: Comparison is made to exams dated: 12/11/2016 mammogram, 06/09/2016 mammogram, 06/14/2017 mammogram, 06/14/2017 ultrasound, and 07/23/2015 mammogram - [facility]. Technique: The patient was placed prone in a dedicated breast imaging coil. Precontrast axial T1-weighted, axial T2-weighted fat saturation, and axial T1- weighted fat saturation images were obtained. After the administration of 6 mL of Gadavist IV contrast, sequential T1-weighted fat saturation images were obtained. Subtraction images were obtained of the dynamic contrast enhanced sequences, and 3-D reformations were performed. The [employer] software was used for kinetic analysis. Findings: Right breast: There is mild background parenchymal enhancement. There are no suspicious enhancing masses or areas of abnormal non-mass enhancement seen within the right breast. Left breast: There is mild background parenchymal enhancement. There are postsurgical changes seen within the left central/subareolar breast and left 5 to 6:00 breast from prior lumpectomy. A T2 hyperintense, nonenhancing fluid collection is seen at the surgical bed which measures 2.2 x 0.7 cm and is consistent with a small postsurgical seroma (series 4 image 40). A few small subcentimeter patchy areas of enhancement are seen in the region of the surgical bed in the left central breast far posteriorly, which demonstrate predominantly persistent and plateau kinetics (series 42169 images 71 and 67). Additionally, there is another patchy 6 mm area of enhancement within the left subareolar breast at approximately 3:00, which also demonstrates a mixed persistent and plateau kinetic pattern (series 62011 image 76). The remainder of the left breast is negative, without suspicious masses or areas of abnormal non-mass enhancement seen. There is no evidence of axillary adenopathy. The chest wall structures are negative. Extramammary soft tissues are grossly unremarkable. IMPRESSION: ACR-BI-RADS CATEGORY 3: PROBABLY BENIGN 1. No MRI evidence of malignancy in the right breast. 2. Postsurgical changes in the left breast status post lumpectomy. A few subcentimeter patchy areas of enhancement are seen at the surgical bed in the left central posterior breast and in the left 3:00 subareolar breast. The patient was seen for a diagnostic workup in the same day, and ultrasound was performed of these regions which showed no clear suspicious abnormalities. The findings are probably benign and likely represent postsurgical changes/fat necrosis. Recommend follow-up bilateral breast MRI in 6 months to reevaluate. Rosina Mar M.D. /:06/14/2017 17:13:44 Assessment & Plan Plan: Continue with scheduled mammography. She is due for MRI after December 15. An order was written. This is going to be scheduled by nursing and insurance authorization will be obtained. Continue follow-up with medical oncology and her primary care physician. I have asked her to make an appointment as soon as possible with the primary care physician or their physician psychiatric technician assistant in regards to the symptoms that she is having. I discussed with her that these sound like she is having angina and this needs to be evaluated. She may go to the emergency room should she have severe pain that does not resolve with rest. We discussed the issues with her hair. She is disturbed about her final outcome of hair growth following the chemotherapy. I have asked her to review this with her coin box inspector. She will be seeing Dr. Patel in the next week. She may have some recommendations in regards to hair growth. We asked her to return to our office in 1 year. She may call if she has any questions or concerns in the interim. Total Time In Follow-Up I spent 20 minutes speaking to the patient in performing examination. I spent 15 minutes reviewing information and completing this note. Copy To Messi Landis D.O.; Paris Patel M.D.; To Watson M.D.; Johnny Rai M.D. Problem Qualifiers (1) Breast cancer: Breast location: central portion of breast Estrogen receptor status: positive Patient sex: female Laterality: left Qualified Codes: C50.112 - Malignant neoplasm of central portion of left female breast; Z17.0 - Estrogen receptor positive status [ER+]
== END | disposition home or self-care (01) ==
LOC: C.ONC 12:41
PROVIDERS: ATTEND Physician Assistant Medical
DX: Z08 Encounter for follow-up examination after completed treatment for malignant neoplasm (principal); Z92.3 Personal history of irradiation; Z85.3 Personal history of malignant neoplasm of breast

== ENCOUNTER 2020-01-05 00:59 | Inpatient (IN) ==
[2020-01-05 01:56] LABS: Basophils # (auto) 0.03 K/uL (0-0.2); Basophils % (auto) 0.3 %; Eosinophils % (auto) 4.1 %; Hematocrit (blood only) 28.9 % (37-47); Hemoglobin 9.9 g/dL (12.0-16.0); Immature Granulocytes # (auto) 0.02 K/uL (0.00-0.02); Immature Granulocytes % (auto) 0.2 %; Lymphocytes # (auto) 1.39 K/uL (1.2-3.4); Lymphocytes % (auto) 14.2 %; Mean Corpuscular Hemoglobin 32.2 pg (25-34); Mean Corpuscular Hgb Conc 34.3 g/dL (32-36); Mean Corpuscular Volume 94.1 fL (80-100); Mean Platelet Volume 10.1 fL (7.4-10.4); Monocytes # (auto) 0.84 K/uL (0.11-0.59); Monocytes % (auto) 8.6 %; Neutrophils # (auto) 7.13 K/uL (1.4-6.5); Neutrophils % (auto) 72.6 %; Platelet Count 184 K/uL (130-400); RDW Coefficient of Variation 13.4 % (11.5-14.5); RDW Standard Deviation 46.3 fL (36.4-46.3); Red Blood Count 3.07 M/uL (4.2-5.4); White Blood Count 9.81 K/uL (4.8-10.8)
[2020-01-05 02:15] LABS: INR 1.2 (0.9-1.1); Partial Thromboplastin Time 27.6 Seconds (21.0-31.0); Prothrombin Time 12.1 Seconds (9.0-12.0)
[2020-01-05 02:16] LABS: D Dimer 6350 ug/L FEU (0-500)
[2020-01-05 02:17] LABS: Potassium 3.3 mmol/L (3.5-5.1)
[2020-01-05 02:27] LABS: Albumin Level 3.4 gm/dl (3.4-5.0); BUN Creatinine Ratio 7.2 (10-20); Bilirubin,Total 0.5 mg/dl (0.2-1); Calcium 8.2 mg/dl (8.5-10.1); Creatinine Clr Calc Pharmacy 7.4 ml/min; Est GFR (African American) 8.1; Globulin 3.5 gm/dl (2.5-4.0); Total Protein 6.9 gm/dl (6.4-8.2); Troponin I 0.469 ng/ml (0-0.045)
--- NOTE | 2020-01-05 04:10 | Emergency Department Note ---
Impression & Plan Hypoxia, Pulmonary edema, Non-ST elevation (NSTEMI) myocardial infarction ED Provider Note NAME: TRI PETERSON AGE: 79 SEX: F ARRIVES VIA: Ambulance INFORMANT: Patient ED PROVIDER(S): Maria De Jesus Alegria DO CHIEF COMPLAINT: Shortness of breath PLAN: [facility] Stable MEDICAL DECISION MAKING: This is a 79-year-old female patient with kidney disease who presents to the emergency department with a sudden onset of acute shortness of breath. Patient awoke from sleep with severe shortness of breath. Upon EMS arrival, the patient's O2 saturation was only 78% on room air. She had obvious wheezing. She was given a nebulizer treatment and arrived here in the emergency department with an O2 sat of 85% on room air. Chest x-ray shows evidence of pulmonary edema. The patient does have an elevated troponin at this time. The patient was just in the hospital with hypertension and acute kidney injury. She was to be evaluated at [facility] this week for a second opinion about her end-stage renal disease and renal artery occlusions. I discussed the case with the [facility] hospitalist and he will evaluate for further management. Triage Nursing notes reviewed and agree them. Additional history obtained from the patient's son and . Prior medical records reviewed from her most recent admission Vital Signs: reviewed and remarkable for hypertension although it was not quite as significant as her most recent admission Differential diagnosis: Pneumonia, CHF, bronchitis, STEMI ER treatment provided: Supplemental oxygen Diagnostics interpreted by me: ECG: Normal sinus rhythm at a rate of [address] segment depression in leads I and II as well as the lateral leads.. There is no ectopy. Cardiac Monitoring: Normal sinus rhythm at 96 Laboratory studies: See below Imaging studies: As per my interpretation Chest x-ray: Pulmonary edema HPI: 79/F arrives for evaluation of shortness of breath. The patient was discharged yesterday from the hospital after being admitted for hypertension and acute kidney disease. The patient awoke from sleep around 11 PM with chest pain, shortness of breath and wheezing. The patient was hypoxic upon the arrival of EMS. She was wheezing upon their evaluation and was given a nebulizer treatment. The patient has no history of lung disease or previous episodes of wheezing. ROS: See above HPI for pertinent positives & negatives. A total of 10 systems reviewed and were otherwise negative. PAST MEDICAL HISTORY:See Below PAST SURGICAL HISTORY:See Below FAMILY HISTORY:See Below SOCIAL HISTORY:See Below HOME MEDICATIONS:See list ALLERGIES:See list VITALS:See Below PHYSICAL EXAMINATION: HEENT: Head - normocephalic and atraumatic Pupils are equal, round, and reactive to light. Extraocular eye muscles are intact, and sclera are anicteric. Nose - moist nasal mucosa without discharge. Mouth - moist buccal mucosa. Oropharynx is nonerythematous and there is no tonsillar exudate or edema noted. Neck: Supple; no JVD, nuchal rigidity, cervical lymphadenopathy, or auscultated bruits. Heart: Regular rate and rhythm. There is a normal S1 and S2 with no murmurs, clicks, or gallops appreciated. Lungs: Diffuse rales in all lung torres with wheezes throughout both bases. Abdomen: Soft, completely nontender, nondistended, with good bowel sounds. There are no palpable pulsatile masses or hepatosplenomegaly. There is no guarding, rigidity, or rebound noted. Extremities: The patient has 2 toes on both of her feet specifically the second, third and fourth toes of both feet are blue and cold to touch. She describes this is a chronic problem. Skin: warm and dry with good turgor and no rashes. ED COURSE: Times/Reassessments: 0115: The patient was evaluated in room B6. A complete history and physical was performed. I discussed the presentation with the patient and her who was at the bedside. The patient was placed on supplemental oxygen because her O2 saturation on room air was 85% a stat portable chest x-ray was obtained. An order was placed for continuous cardiac monitoring. The patient was in a normal sinus rhythm at a rate of 96. A twelve-lead EKG was obtained as described above. The patient was no longer having chest discomfort. I did review her records from her recent admission to the hospital. I discussed the results of the laboratory studies and x-ray with the patient and her son who is now at the bedside. I discussed the case with the [facility] hospitalist and they will evaluate for further management I have personally spent greater than 45 minutes of critical care time in the direct management of this patient. This includes bedside care, interpretation of diagnostic studies, and testing, discussion with consultants, patient, and family members, and other required patient management activities. This 45 minutes is in excess of all separately billable procedures. Maria De Jesus Alegria DO Past Med/Surg History Medical History (Updated 01/05/20 @ 06:12 by Maria De Jesus Alegria DO) Abdominal aortic aneurysm Anemia Cancer of left breast, stage 1 (07/23/15) Chronic kidney disease, stage 4 (severe) Chronic kidney disease, stage V Degenerative joint disease, multiple joints on both sides of body Dyslipidemia Fibromyalgia Hypertension Lumbar canal stenosis Peripheral neuropathy Renal artery stenosis Right renal artery stenosis Ulcerative colitis (03/06/12) Word finding difficulty Surgical History H/O colectomy (03/06/12) History of colon surgery History of intravascular stent placement percutaneous renal History of partial mastectomy of left breast Family History Mother Cardiac disorder Colon cancer Hypertension Father Cardiac disorder Colon cancer Cancer Family/Other Coronary arteriosclerosis Social History Smoking Status: Never smoker Hx Alcohol Use: No Hx Substance Use: No Preferred Language: Kyrgyz Communication Ability: Effective Global Cto Required: No Beliefs That Will Affect Care: None marital status: Current Living Situation: Spouse current occupational status: retired How many Children do You have: 1 Feels Safe at Home: Yes Assistive Devices: Glasses Allergies Allergies Allergy/AdvReac Type Severity Reaction Status Date / Time hydrocodone Allergy Unknown RASH, HIVES Verified 01/01/20 11:51 Aldactazide AdvReac Unknown GI Unverified 07/24/17 10:20 SYMPTOMS,NAUSEA AND VOMITING hydrochlorothiazide AdvReac Unknown GI Unverified 01/01/20 11:51 SYMPTOMS,NAUSEA AND VOMITING spironolactone AdvReac Unknown GI Unverified 01/01/20 11:51 SYMPTOMS,NAUSEA AND VOMITING Sulfa (Sulfonamide AdvReac Unknown "SULFA Verified 01/01/20 11:51 Antibiotics) DRUGS": N/V Home Meds Home Medications Medication Instructions Recorded Confirmed cholecalciferol (vitamin D3) 50 2,000 units PO QAM 10/16/18 01/05/20 mcg (2,000 unit) capsule nitroglycerin 0.4 mg sublingual 0.4 mg SL Q5M PRN 10/16/18 01/05/20 tablet coenzyme Q10 200 mg capsule 200 mg PO QAM cap 10/31/18 01/05/20 exemestane 25 mg tablet 25 mg PO DAILY@1200 tab 10/31/18 01/05/20 aspirin [Enteric Coated Aspirin] 81 mg PO HS 01/23/19 01/05/20 pantoprazole 40 mg tablet,delayed 40 mg PO DAILY PRN tab 02/11/19 01/05/20 release Previous Rx's Medication Instructions Recorded clopidogrel 75 mg tablet 75 mg PO QAM #90 tab 12/29/19 rosuvastatin 10 mg tablet 10 mg PO HS #90 tab 12/29/19 amlodipine 10 mg PO DAILY #30 tab 01/04/20 gabapentin 200 mg PO QAM #60 cap 01/04/20 isosorbide mononitrate 60 mg PO DAILY@1200 #30 tab 01/04/20 metoprolol succinate 50 mg PO HS #30 tab 01/04/20 ondansetron 4 mg PO Q6H PRN #10 tab 01/04/20 tramadol 50 mg PO Q12 PRN #0 tab 01/04/20 Results & Data (ED) Vital Signs Vital Signs - 24 hr 01/05/20 01:26 01/05/20 01:34 01/05/20 03:09 Temperature 36.8 C Temperature Source Oral Pulse Rate 93 H 93 H Pulse Rhythm Regular Respiratory Rate 18 18 Respiratory Effort / Characteristics Non-Labored Respiratory Depth Normal Respiratory Pattern Regular Blood Pressure 156/94 H Blood Pressure [Right Arm] 156/94 H Blood Pressure Mean 114 Blood Pressure Mean [Right Arm] 114 Pulse Oximetry 100 100 Oxygen Delivery Method Nasal Cannula Nasal Cannula Oxygen Flow Rate 4 4 Sepsis Recent Fever Within 48 Hours No Sepsis New/Unexplained Change in Mental Status No Sepsis Action Taken by Nursing No Action Required 01/05/20 05:00 Temperature Temperature Source Pulse Rate Pulse Rhythm Respiratory Rate Respiratory Effort / Characteristics Respiratory Depth Respiratory Pattern Blood Pressure Blood Pressure [Right Arm] 144/95 H Blood Pressure Mean Blood Pressure Mean [Right Arm] 111 Pulse Oximetry Oxygen Delivery Method Oxygen Flow Rate Sepsis Recent Fever Within 48 Hours Sepsis New/Unexplained Change in Mental Status Sepsis Action Taken by Nursing Laboratory Data Result diagrams: 01/05/20 01:45 01/05/20 01:45 Lab Results 10/12/20 10/12/20 10/12/20 Range/Units 01:45 01:45 01:45 WBC 9.81 (4.8-10.8) K/uL RBC 3.07 L (4.2-5.4) M/uL Hgb 9.9 L (12.0-16.0) g/dL Hct 28.9 L (37-47) % MCV 94.1 (80-100) fL MCH 32.2 (25-34) pg MCHC 34.3 (32-36) g/dL RDW Std Deviation 46.3 (36.4-46.3) fL RDW Coeff of Max 13.4 (11.5-14.5) % Plt Count 184 (130-400) K/uL MPV 10.1 (7.4-10.4) fL Immature Gran % (Auto) 0.2 % Neut % (Auto) 72.6 % Lymph % (Auto) 14.2 % [place] % (Auto) 8.6 % Eos % (Auto) 4.1 % Baso % (Auto) 0.3 % Neut # (Auto) 7.13 H (1.4-6.5) K/uL Lymph # (Auto) 1.39 (1.2-3.4) K/uL [place] # (Auto) 0.84 H (0.11-0.59) K/uL Eos # (Auto) 0.40 (0-0.5) K/uL Baso # (Auto) 0.03 (0-0.2) K/uL Immature Gran # (Auto) 0.02 (0.00-0.02) K/uL PT 12.1 H (9.0-12.0) Seconds INR 1.2 H (0.9-1.1) APTT 27.6 (21.0-31.0) Seconds PTT Ratio 1.0 D-Dimer 6350 H* (0-500) ug/L FEU Sodium 141 (136-145) mmol/L Potassium 3.3 L (3.5-5.1) mmol/L Chloride 105 (98-107) mmol/L Carbon Dioxide 25 (21-32) mmol/L Anion Gap 10.0 (3-11) BUN 39 H (7-18) mg/dl Creatinine 5.33 H* D (0.6-1.2) mg/dl Est Cr Clr Drug Dosing 7.4 ml/min Est GFR ( Amer) 8.1 Est GFR (Non-Af Amer) 7.0 BUN/Creatinine Ratio 7.2 L (10-20) Glucose 101 H (70-99) mg/dl Calcium 8.2 L (8.5-10.1) mg/dl Total Bilirubin 0.5 (0.2-1) mg/dl AST 23 (15-37) U/L ALT 14 (12-78) U/L Alkaline Phosphatase 66 (45-117) U/L Troponin I 0.469 H* (0-0.045) ng/ml Total Protein 6.9 (6.4-8.2) gm/dl Albumin 3.4 (3.4-5.0) gm/dl Globulin 3.5 (2.5-4.0) gm/dl Albumin/Globulin Ratio 1.0 (0.9-2) Discharge Plan Visit Data Chief Complaint: Respiratory Distress Stated Complaint: CHEST DISCOMFORT, RESPIRATORY DISTRESS ED Provider: Maria De Jesus Alegria Discharge Problem: Hypoxia, Pulmonary edema, Non-ST elevation (NSTEMI) myocardial infarction Patient Disposition: Admitted As Inpatient Forms Stand Alone Forms: [facility] Prescriptions Prescriptions: No Action cholecalciferol (vitamin D3) 2,000 unit capsule 2,000 units PO QAM RF: 0 nitroglycerin [Nitrostat] 0.4 mg tablet, sublingual 0.4 mg SL Q5M PRN (Reason: Chest Pain) RF: 0 rosuvastatin 10 mg tablet 10 mg PO HS Qty: 90 RF: 3 clopidogrel 75 mg tablet 75 mg PO QAM Qty: 90 RF: 3 pantoprazole 40 mg tablet,delayed release (DR/EC) 40 mg PO DAILY PRN (Reason: Acid Reflux) RF: 0 exemestane 25 mg tablet 25 mg PO DAILY@1200 RF: 0 coenzyme Q10 200 mg capsule 200 mg PO QAM RF: 0 isosorbide mononitrate 60 mg Tablet Extended Release 24 Hr 60 mg PO DAILY@1200 Qty: 30 RF: 0 metoprolol succinate 50 mg Tablet Extended Release 24 Hr 50 mg PO HS Qty: 30 RF: 0 amlodipine 10 mg tablet 10 mg PO DAILY Qty: 30 RF: 0 ondansetron 4 mg tablet,disintegrating 4 mg PO Q6H PRN (Reason: nausea and vomiting) Qty: 10 RF: 0 tramadol 50 mg tablet 50 mg PO Q12 PRN (Reason: Pain) Qty: 0 RF: 0 gabapentin 100 mg capsule 200 mg PO QAM Qty: 60 RF: 0 aspirin [Enteric Coated Aspirin] 81 mg tablet,delayed release (DR/EC) 81 mg PO HS RF: 0 Referrals Referrals: Johnny Rai MD [Primary Care Provider] - Discharge Problem: Pulmonary edema Qualifiers: Chronicity: acute Qualified Code(s): J81.0 - Acute pulmonary edema
--- NOTE | 2020-01-05 04:43 | History & Physical Report ---
Date of Service January 05, 2020 Assessment & Plan (1) Anemia: Adriana Arnett is an 79 year old woman with a complicated past medical history as outlined above here for shortness of breath and found to be fluid overloaded on chest XR in ED. Shortness of Breath Patient appears clinically fluid overloaded with rales and wheezing on expiration Will attempt to diurese patient though this could be challenging given her very poor renal function Will start with 80 mg lasix BID Nephrology consulted Dr. Gomez for further guidance, if not successful in diuresing may require ultrafiltration Patient also could be having some element of CHF driving this process, started epogen which can exacerbate CHF and also with some evidence of active ischemic disease with lateral ST depressions and slightly elevated troponin Will not order BNP given patient's GFR of 7 unlikely to be of clinical value, will get echo to further evaluate cardiac function Daily weights, strict I's and O's CKD Progressive Creatinine elevated to 5.33 up from 4.6 on discharge yesterday Nuclear medicine renal scan on 12/30/2019 showed asymmetric renal function, 43% from right kidney and 57% from left kidney along with significant bilateral cortical atrophy. With longstanding hypertension, bilateral renal stenosis CAD. With a history of CO2 renal angiogram and attempt at stent placement on 10/14/2019 which was not successful. Appears to have had an ischemic insult to the kidney during the procedure as her renal failure worsened sometime between 07/2019 and 11/2019 Has been very reticent to the idea of dialysis but after discussion with her and further thought she is willing to give this a try Hypokalemic at present otherwise electrolytes WNL Renally dosing medications Elevate Troponin/NSTEMI Patient appears to have some ST depressions new since last ECG History of CAD, troponin elevated to .4 patient feels asymptomatic Troponin is likely reading falsely high given patient's renal function but there are clear ECG changes Will anticoagulate with heparin Peripheral arterial disease Arterial Dopplers and ABIs showed right leg with multisegmental SFA stenosis with dampened monophasic flow distally, PT occluded, INES occluded distally. Left leg with short mid SFA occlusion with thrombus like material, reconstitution distal SFA with diminished, monophasic flow. INES, peroneal patent, occluded distal ELECTRONIC GLUER. Planned to perform lower extremity angiography with intervention on 12/12/19 but her preoperative labs revealed a creatinine of 4.76 and it was abandoned Vascular consulted Will continue Toprol, Imdur, baby aspirin, Plavix, Crestor AAA Stable 3.5 cm no further interventions at this time Hypertension Continuing toprol, amlodipine, imdur Breast Cancer Originally diagnosed June 2015, left breast cancer, infiltrating ductal carcinoma, stage I, ER positive/HI positive, HER-2/mario positive, s/p chemotherapy and radiation Continue exemestane 25 mg daily Anemia 2/2 CKD Hemoglobin Up since discharge to 9.9 received erythropoetin on day of discharge May be contributing to current presentation will get echo, continue to monitor CBC daily Hypokalemia: Potassium of 3.3 and active ischemic process, no evidence of ectopy at this time Given patient's renal failure, I don't want to give too much potassium will just give 10 meq for now, patient on monitored floor if starting to have ectopy can increase potassium DVT PPx: Lovenox F/E/N: PO intake Dispo: Admit to [facility] for diuresis, further monitoring and nephrology consultation. DNR/DNI (2) Right renal artery stenosis: (3) Chronic kidney disease, stage V: (4) Abdominal aortic aneurysm: (5) Dyslipidemia: (6) Fibromyalgia: (7) Hypertension: (8) Peripheral neuropathy: (9) Renal artery stenosis: (10) PAD (peripheral artery disease): (11) Chronic osteoarthritis: (12) Arteriosclerotic cardiovascular disease (ASCVD): History of Present Illness Chief Complaint: Shortness of breath Primary Care Provider: Johnny Rai MD Adriana Arnett is a caterina 79 year old woman with PMHx of CAD, PAD, chronic renal insufficiency, bilateral renal artery stenosis, HTN, HLD, breast cancer in March 2015 s/p chemotherapy and radiation, osteoarthritis who presents today for one night of wheezing and shortness of breath. She felt she could not catch her breath, could not sleep, and felt like she was wheezing and short of breath. says wheezing was audible to him as well. She was seen by EMS and when O2 was given she immediately felt better.She is lying in her hospital bed lying comfortably endorsing no other symptoms with [address]. ROS negative apart from shortness of breath, also having pain with her blue third toe on the right foot. VItals significant for hypertension and hypoxemic respiratory failure, oxygenating well on 4L currently. Labwork showing no elevated white count, hemoglobin of 9.9 up from 9.3 ( of note patient did start erythropoetin for first time yesterday). INR slightly elevated to 1.2 DDimer of 6350, Potassium of 3.3, Creatinine of 5.33 BUN of 39 up from 4.61 and 36 yesterday. Troponin elevated to .469. Chest XR showing evidence of pulmonary vessel congestion and some pulmonary edema by my read. ECG obtained showing lateral ST depressions. She is regularly followed by nephrology and cardiology and attempted to have a renal arterial stent placed at the end of October 2019 at [facility], however the procedure was unsuccessful. There was question to if she had suffered an atheroembolic event as a result of the procedure. She has significant bilateral renal artery stenosis. Pt is being followed closely by Dr. Pfeiffer and Dr. Kaur as an outpatient. She was admitted for difficulties speaking and word finding as well as progressive weakness, unsteady gait, and some nausea and poor PO intake she was also markedly hypertensive and required a nicardipine drip. She had a negative CVA workup and patient already on ASA and plavix, pressures improved starting amlodipine increasing her imdur and increasing her toprol. Nephrology saw her for her chronic and worsening renal failure and recommended that if she is ready for dialysis they would be ready to initiate it, initially was supposed to meet with [facility] for a second opinion but at this point she feels she is willing to try dialysis. Patient also with a strong history of Athersclerotic vascular disease, she has a history of CAD and peripheral vascular disease, after renal artery stent attempt patient has blue painful toes on right side, was going to look at peripheral arterial stenting but was thought to be too unstable on planned intervention date, was going to also seek vascular opinion at [facility]. Patient lives at home with , non smoker, non drinker, non drug user. She wishes to be DNR/DNI at this time. Allergies Allergy/AdvReac Type Severity Reaction Status Date / Time hydrocodone Allergy Unknown RASH, HIVES Verified 01/01/20 11:51 Aldactazide AdvReac Unknown GI Unverified 07/24/17 10:20 SYMPTOMS,NAUSEA AND VOMITING hydrochlorothiazide AdvReac Unknown GI Unverified 01/01/20 11:51 SYMPTOMS,NAUSEA AND VOMITING spironolactone AdvReac Unknown GI Unverified 01/01/20 11:51 SYMPTOMS,NAUSEA AND VOMITING Sulfa (Sulfonamide AdvReac Unknown "SULFA Verified 01/01/20 11:51 Antibiotics) DRUGS": N/V Home Medications Home Medications Medication Instructions Recorded Confirmed Type cholecalciferol (vitamin D3) 50 2,000 units PO QAM 10/16/18 01/05/20 History mcg (2,000 unit) capsule nitroglycerin 0.4 mg sublingual 0.4 mg SL Q5M PRN 10/16/18 01/05/20 History tablet coenzyme Q10 200 mg capsule 200 mg PO QAM cap 10/31/18 01/05/20 History exemestane 25 mg tablet 25 mg PO DAILY@1200 tab 10/31/18 01/05/20 History aspirin [Enteric Coated Aspirin] 81 mg PO HS 01/23/19 01/05/20 History pantoprazole 40 mg tablet,delayed 40 mg PO DAILY PRN tab 02/11/19 01/05/20 History release clopidogrel 75 mg tablet 75 mg PO QAM #90 tab 12/29/19 01/05/20 Rx rosuvastatin 10 mg tablet 10 mg PO HS #90 tab 12/29/19 01/05/20 Rx amlodipine 10 mg PO DAILY #30 tab 01/04/20 01/05/20 Rx gabapentin 200 mg PO QAM #60 cap 01/04/20 01/05/20 Rx isosorbide mononitrate 60 mg PO DAILY@1200 #30 tab 01/04/20 01/05/20 Rx metoprolol succinate 50 mg PO HS #30 tab 01/04/20 01/05/20 Rx ondansetron 4 mg PO Q6H PRN #10 tab 01/04/20 01/05/20 Rx tramadol 50 mg PO Q12 PRN #0 tab 01/04/20 01/05/20 Rx Past Med/Surg History Medical History Abdominal aortic aneurysm Anemia Cancer of left breast, stage 1 (07/23/15) Chronic kidney disease, stage 4 (severe) Chronic kidney disease, stage V Degenerative joint disease, multiple joints on both sides of body Dyslipidemia Fibromyalgia Hypertension Lumbar canal stenosis Peripheral neuropathy Renal artery stenosis Right renal artery stenosis Ulcerative colitis (12/12/12) Word finding difficulty Surgical History H/O colectomy (03/06/12) History of colon surgery History of intravascular stent placement percutaneous renal History of partial mastectomy of left breast Family History Mother Cardiac disorder Colon cancer Hypertension Father Cardiac disorder Colon cancer Cancer Family/Other Coronary arteriosclerosis Social History Smoking Status: Never smoker Hx Alcohol Use: No Hx Substance Use: No Preferred Language: Arabic Communication Ability: Effective Flight Attendant Required: No Beliefs That Will Affect Care: None marital status: Current Living Situation: Spouse current occupational status: retired How many Children do You have: 1 Feels Safe at Home: Yes Assistive Devices: Glasses Review of Systems Review of Systems: All systems reviewed & are unremarkable except as noted in HPI & below Physical Exam Constitutional: well developed and well nourished; no acute distress Eyes: PERRL, conjunctivae normal, anicteric sclerae ENMT: external ear and nose normal, oropharynx normal Respiratory: normal respiratory effort and + cough; no respiratory distress and does not use accessory muscles Auscultation: + crackles, + rales and + wheezes (End expiratory wheezes) Cardiovascular: RRR, no murmur, no edema Gastrointestinal (Abdomen): normal bowel sounds, soft, nontender, no hep atosplenomegaly Results & Data Results & Data ([facility]) Vital Signs (Past 12 Hours) Vital Signs Temp Pulse Resp BP Pulse Ox 01/05/20 01:34 93 H 18 100 01/05/20 01:26 36.8 C 93 H 18 156/94 H 100 Supervising Physician Co-Signing Physician Notes Attending addendum: I have physically seen this patient, have supervised the medical residents activities, and agree with the H&P unless as otherwise noted. Assessment and Plan: Elevated troponin/CAD/hypertension/abnormal EKG/fluid overload- The patient will be admitted to telemetry for serial cardiac enzymes, serial EKG's, cardiac rhythm monitoring and a 2-D echocardiogram with Dopplers. Continue amlodipine 10 mg p.o. daily, aspirin 81 mg daily, clopidogrel 75 mg daily, isosorbide mononitrate 60 mg daily and metoprolol succinate [address] on Lasix 80 mg IV twice daily Patient did receive her first dose of Epogen yesterday, question possible contribution to fluid overload and elevated troponin Progressive CKD- Creatinine increased from 5.33 compared to recent 4.6- Consult nephrology Remainder of orders and notations as noted Resident Activity Tracking Resident Involvement: Resident Care Provided Care Provided: Adult Hospital Medicine (1) Abdominal aortic aneurysm Presence of rupture: without rupture Qualified Code(s): I71.4 - Abdominal aortic aneurysm, without rupture (2) Hypertension Hypertension type: renovascular hypertension Qualified Code(s): I15.0 - Renovascular hypertension
[2020-01-05] MEDS ORDERED: ONDANSETRON 4 MG OD TAB PO PRN (06:14)
[2020-01-05] MEDS ORDERED: ONDANSETRON INJ 2 MG/ML 2 ML VIAL IV PRN (06:14)
[2020-01-05] MEDS ORDERED: NITROGLYCERIN SL 0.4 MG/TAB TAB SL PRN (06:14)
[2020-01-05] MEDS ORDERED: POLYETHYLENE (MIRALAX) 17 GM PACK PO PRN (06:14)
[2020-01-05] MEDS ORDERED: FUROSEMIDE 40 MG/4 ML VIAL IV SCH (06:14)
[2020-01-05] MEDS ORDERED: ACETAMINOPHEN 325 MG TAB PO PRN (06:14)
[2020-01-05] MEDS ORDERED: Heparin IV Low Dose *NO* Bolus ONE (06:47)
[2020-01-05] MEDS ORDERED: POTASSIUM CHLORIDE 10 MEQ TABCR PO STA (06:47)
--- NOTE | 2020-01-05 07:01 | XRay Report ---
XR chest 1V portable CLINICAL HISTORY: Dyspnea COMPARISON STUDY: Chest radiograph November 13, 2015. FINDINGS: Lung volumes are normal. There is interstitial thickening. There is no pneumothorax or pleu ral effusion. Left mediastinal contour is prominent. No pneumothorax or pleural effusion is noted. IMPRESSION: 1. Interstitial thickening which favors mild pulmonary edema. 2. Prominent left mediastinal contour. This may be due to an enlarged left pulmonary artery or enlar ged lymph nodes. ACT 112: Negative or not required by law. Electronically signed by: Lc Griffin M.D. 01/05/2020 7:00 AM
[2020-01-05] MEDS: FUROSEMIDE 80 MG in SYRINGE 0 ML IV SCH ×2 (07:24→17:26)
[2020-01-05] MEDS: GABAPENTIN 100 MG CAP PO SCH (07:42)
[2020-01-05] MEDS: PANTOprazole 40 MG TAB PO PRN (07:42)
[2020-01-05] MEDS: amLODIPine BESYLATE 5 MG TAB PO SCH (07:42)
[2020-01-05] MEDS: CHOLECALCIFEROL 1,000 UNITS 25 MCG TAB PO SCH (07:42)
[2020-01-05] MEDS: HEPARIN SODIUM/DEXTROSE 25,000 UNITS/500 ML BAG IV SCH (07:53)
[2020-01-05 07:56] LABS: Basophils # (auto) 0.04 K/uL (0-0.2); Basophils % (auto) 0.4 %; Eosinophils # (auto) 0.18 K/uL (0-0.5); Eosinophils % (auto) 1.6 %; Hematocrit (blood only) 32.7 % (37-47); Immature Granulocytes # (auto) 0.03 K/uL (0.00-0.02); Immature Granulocytes % (auto) 0.3 %; Lymphocytes % (auto) 10.1 %; Mean Corpuscular Hemoglobin 31.5 pg (25-34); Mean Corpuscular Volume 93.7 fL (80-100); Mean Platelet Volume 10.3 fL (7.4-10.4); Monocytes # (auto) 0.63 K/uL (0.11-0.59); Monocytes % (auto) 5.8 %; Neutrophils # (auto) 8.95 K/uL (1.4-6.5); Neutrophils % (auto) 81.8 %; Platelet Count 185 K/uL (130-400); RDW Coefficient of Variation 13.4 % (11.5-14.5); RDW Standard Deviation 45.6 fL (36.4-46.3); Red Blood Count 3.49 M/uL (4.2-5.4); White Blood Count 10.93 K/uL (4.8-10.8)
[2020-01-05 08:09] LABS: INR 1.1 (0.9-1.1); Partial Thromboplastin Time 28.1 Seconds (21.0-31.0); Prothrombin Time 11.9 Seconds (9.0-12.0)
[2020-01-05 08:42] LABS: Mean Corpuscular Hgb Conc 33.6 g/dL (32-36)
[2020-01-05] MEDS ORDERED: ENOXAPARIN INJ 30 MG/0.3 ML SYR SQ SCH (09:00)
[2020-01-05] MEDS ORDERED: NON-FORMULARY MEDICATION (Coenzyme Q10 200 MG) PO SCH (09:00)
[2020-01-05] MEDS: CLOPIDOGREL BISULFATE 75 MG TAB PO SCH (09:10)
--- NOTE | 2020-01-05 09:52 | Consultation ---
Date of Consultation January 05, 2020 Assessment & Plan (1) Chronic kidney disease, stage 4 (severe): Patient is in need of dialysis at this time. We recommended insertion of a PermCath. At this point she is significantly SOB and unsure about laying flat. Will place a temporary catheter at this time and a permcath later this week. I have discussed the risks options and benefits of the procedure with the patient. The patient understands the risks options and benefits and agrees to the procedure. History of Present Illness Reason for Consultation: Acute renal failure with fluid overload Attending Physician: Artemio Damon DO History of Present Illness Is an 79-year-old female who presented with pulmonary edema. She has known severe renal insufficiency. At this point she is on 9 L with an oxygen saturation of 90%. She is in need of dialysis at this time. She has a history of CAD, PAD, chronic renal insufficiency, bilateral renal artery stenosis, HTN, HLD, breast cancer in March 2015 s/p chemotherapy and radiation, osteoarthritis Allergies Allergy/AdvReac Type Severity Reaction Status Date / Time hydrocodone Allergy Unknown RASH, HIVES Verified 01/01/20 11:51 Aldactazide AdvReac Unknown GI Unverified 07/24/17 10:20 SYMPTOMS,NAUSEA AND VOMITING hydrochlorothiazide AdvReac Unknown GI Unverified 01/01/20 11:51 SYMPTOMS,NAUSEA AND VOMITING spironolactone AdvReac Unknown GI Unverified 01/01/20 11:51 SYMPTOMS,NAUSEA AND VOMITING Sulfa (Sulfonamide AdvReac Unknown "SULFA Verified 01/01/20 11:51 Antibiotics) DRUGS": N/V Home Medications Home Medications Medication Instructions Recorded Confirmed Type cholecalciferol (vitamin D3) 50 2,000 units PO QAM 10/16/18 01/05/20 History mcg (2,000 unit) capsule nitroglycerin 0.4 mg sublingual 0.4 mg SL Q5M PRN 10/16/18 01/05/20 History tablet coenzyme Q10 200 mg capsule 200 mg PO QAM cap 10/31/18 01/05/20 History exemestane 25 mg tablet 25 mg PO DAILY@1200 tab 10/31/18 01/05/20 History aspirin [Enteric Coated Aspirin] 81 mg PO HS 01/23/19 01/05/20 History pantoprazole 40 mg tablet,delayed 40 mg PO DAILY PRN tab 02/11/19 01/05/20 History release clopidogrel 75 mg tablet 75 mg PO QAM #90 tab 12/29/19 01/05/20 Rx rosuvastatin 10 mg tablet 10 mg PO HS #90 tab 12/29/19 01/05/20 Rx amlodipine 10 mg PO DAILY #30 tab 01/04/20 01/05/20 Rx gabapentin 200 mg PO QAM #60 cap 01/04/20 01/05/20 Rx isosorbide mononitrate 60 mg PO DAILY@1200 #30 tab 01/04/20 01/05/20 Rx metoprolol succinate 50 mg PO HS #30 tab 01/04/20 01/05/20 Rx ondansetron 4 mg PO Q6H PRN #10 tab 01/04/20 01/05/20 Rx tramadol 50 mg PO Q12 PRN #0 tab 01/04/20 01/05/20 Rx Patient History Medical History Abdominal aortic aneurysm Anemia Cancer of left breast, stage 1 (07/23/15) Chronic kidney disease, stage 4 (severe) Chronic kidney disease, stage V Degenerative joint disease, multiple joints on both sides of body Dyslipidemia Fibromyalgia Hypertension Lumbar canal stenosis Peripheral neuropathy Renal artery stenosis Right renal artery stenosis Ulcerative colitis (03/06/12) Word finding difficulty Surgical History H/O colectomy (03/06/12) History of colon surgery History of intravascular stent placement percutaneous renal History of partial mastectomy of left breast Family History Mother Cardiac disorder Colon cancer Hypertension Father Cardiac disorder Colon cancer Cancer Family/Other Coronary arteriosclerosis Social History Smoking Status: Never smoker Hx Alcohol Use: No Hx Substance Use: No Preferred Language: Portuguese Communication Ability: Effective Investigator Fraud Required: No Beliefs That Will Affect Care: None marital status: Current Living Situation: Spouse current occupational status: retired How many Children do You have: 1 Feels Safe at Home: Yes Assistive Devices: Glasses Review of Systems Review of Systems: Patient is short of breath. Otherwise review of systems is negative. Physical Exam Constitutional: well developed, well nourished and + ill appearing Respiratory: Auscultation: + diminished lung sounds, + crackles and + rhonchi Cardiovascular: Rate/Rhythm: regular rate and regular rhythm Gastrointestinal (Abdomen): Inspection/Auscultation: abdomen normal to inspection Percussion/Palpation: abdomen nontender Neurologic: CN's II-XI intact bilaterally and moves all extremities Psychiatric: Orientation: alert and oriented x 3 Results & Data ([facility]) Vital Signs (Past 12 Hours) Vital Signs Temp Pulse Pulse Resp BP BP Pulse Ox 01/05/20 08:09 24 90 01/05/20 07:26 86 L 01/05/20 07:25 37.2 C 102 H 22 164/102 H 81 L 01/05/20 06:19 147/86 H 01/05/20 06:18 36.8 C 82 16 153/88 H 99 01/05/20 05:00 144/95 H 01/05/20 03:09 156/94 H 01/05/20 01:34 93 H 18 100 01/05/20 01:26 36.8 C 93 H 18 156/94 H 100
--- NOTE | 2020-01-05 10:09 | CT Scan Report ---
CT OF THE CHEST WITHOUT IV CONTRAST CLINICAL HISTORY: Desaturation. Shortness of breath. COMPARISON STUDY: Chest CT March 14, 2012. Chest radiograph performed earlier today. CT DOSE: 811.08 mGy.cm TECHNIQUE: Axial images of the chest were obtained without IV contrast. Images were reviewed in the axial, sagittal, and coronal planes. IV contrast was not administered for this examination. Automat ed exposure control was utilized for the study. A dose lowering technique was utilized adhering to t he principles of ALARA. FINDINGS: Mildly enlarged AP window lymph nodes are similar to CT of March 06, 2012. These measur e up to 1.2 cm in short axis diameter. Note is made of moderate cardiomegaly. There is no pericardial effusion. No pneumothorax is present. Small right and trace left pleural effusions are noted. Interl obular septal thickening is noted. Extensive right lung airspace opacity has developed since chest ra diograph performed earlier today. Additional mild airspace opacities within left lung are noted. Ther e is no cavitation. Lungs are suboptimally assessed given respiratory motion. The central airways are patent. Postoperative changes within the left breast are noted. The caliber of the ascending aorta i s normal. Note is made of aneurysmal dilatation of the proximal descending thoracic aorta that measur es 5.1 x 4.9 cm. Aneurysmal dilatation is new since prior CT of March 06, 2012. Extensive atherosc lerotic plaque is noted. There is no evidence for rupture. This is suboptimally assessed on this unen hanced examination. This accounts for the abnormal mediastinal contour on chest radiograph. In additi on, there is partial visualization of aneurysmal dilatation of the suprarenal abdominal aorta, measur ing at least 3.9 x 3.8 cm. Upper abdomen is otherwise unremarkable. IMPRESSION: 1. Interstitial thickening with extensive right lung airspace opacity and mild left lung airspace opa city. Given rapid change since chest radiograph performed earlier today, alveolar pulmonary edema is favored. An infectious process would be difficult to exclude although is considered less likely. 2. Small right and trace left pleural effusions. 3. Aneurysmal dilatation of the proximal descending thoracic aorta, measuring 5.1 x 4.9 cm, suboptima lly assessed on this unenhanced exam. Partial visualization of aneurysmal dilatation of the suprarena l abdominal aorta, measuring at least 3.9 x 3.8 cm. Nonemergent vascular surgery consultation is alayna mmended. ACT 112: Negative or not required by law. Electronically signed by: Lc Griffin M.D. 01/05/2020 10:08 AM
--- NOTE | 2020-01-05 10:11 | Hospitalist Progress Note ---
Date of Service January 05, 2020 Assessment & Plan (1) Anemia: Adriana Arnett is an 79 year old woman with CAD, PAD, chronic renal insufficiency, bilateral renal artery stenosis, HTN, HLD, breast cancer in March 2015 s/p chemotherapy and radiation, and osteoarthritis here for shortness of breath and found to be fluid overloaded on chest XR in ED. Shortness of breath -clinically fluid overloaded with crackles and rales on exam -CT this morning shows flash pulmonary edema, will require ultrafiltration -vascular recommends a permacath, will place temporary cath today around 11:30 -currently on 15L nonrebreather; will start bipap if she worsens before temporary cath placement / before ultrafiltration -received 80mg lasix IV although diuresis will be challenging given her advanced CKD -rivera catheter placed -strict I's/O's -daily weights CKD Progressive -Creatinine elevated to 5.33 up from 4.6 on discharge yesterday -Nuclear medicine renal scan on 12/30/2019 showed asymmetric renal function, 43% from right kidney and 57% from left kidney along with significant bilateral cortical atrophy. -With longstanding hypertension, bilateral renal stenosis CAD. -With a history of CO2 renal angiogram and attempt at stent placement on 10/14/2019 which was not successful. Appears to have had an ischemic insult to the kidney during the procedure as her renal failure worsened sometime between 07/2019 and 11/2019 -Will be getting dialysis today -Hypokalemic at present otherwise electrolytes WNL -Renally dosing medications Elevate Troponin/NSTEMI -Patient appears to have some ST depressions new since last ECG -History of CAD, troponin elevated to .4 patient feels asymptomatic, repeat troponin 2.11 at 06:35 -Troponin is likely reading falsely high given patient's renal function but there are clear ECG changes -on heparin drip -echo to evaluate cardiac function Peripheral arterial disease -Arterial dopplers and ABIs showed right leg with multisegmental SFA stenosis with dampened monophasic flow distally, PT occluded, INES occluded distally. Left leg with short mid SFA occlusion with thrombus like material, reconstitution distal SFA with diminished, monophasic flow. INES, peroneal patent, occluded distal SAP DEVELOPER. -Planned to perform lower extremity angiography with intervention on 12/12/19 but her preoperative labs revealed a creatinine of 4.76 and it was abandoned -Will continue Toprol, Imdur, Crestor -holding ASA and plavix since patient is on heparin drip AAA -3.9x3.8cm on today's CT, partially visualized -3.5cm on previous imaging -appreciate vascular recommendations Hypertension -Continuing toprol, amlodipine, imdur Breast Cancer -Originally diagnosed June 2015, left breast cancer, infiltrating ductal carcinoma, stage I, ER positive/AR positive, HER-2/mario positive, s/p chemotherapy and radiation -Continue exemestane 25 mg daily Anemia -2/2 CKD -Hemoglobin up since discharge to 9.9 received erythropoetin on day of discharge -May be contributing to current presentation will get echo, continue to monitor CBC daily Hypokalemia: -Potassium of 3.3 and active ischemic process, no evidence of ectopy at this time -Given patient's renal failure, I don't want to give too much potassium will just give 10 meq for now, patient on monitored floor if starting to have ectopy can increase potassium FENGI: tolerating PO DVT prophylaxis: Lovenox Code status: DNR/DNI Dispo: med/surg tele (2) Right renal artery stenosis: (3) Chronic kidney disease, stage V: (4) Abdominal aortic aneurysm: (5) Dyslipidemia: (6) Fibromyalgia: (7) Hypertension: (8) Peripheral neuropathy: (9) Renal artery stenosis: (10) PAD (peripheral artery disease): (11) Chronic osteoarthritis: (12) Arteriosclerotic cardiovascular disease (ASCVD): Admission and Anticipated Discharge Date Admission Date: January 05, 2020 Supervising Physician Co-Signing Physician Notes I personally examined the patient and verified all johnson points of history and exam, discussed case, and agree with decision making with Dr Carlson. seen when HD getting started. hard to remember how she's feeling compared to before - feels like she's able to get enough air (in d/w R1 he ntoes she looks MARKEDLY more comfortable than when he saw her this AM) vitals noted nad heent nc at mmm breathing unlabored no accessory muscles good effort skin no rashes no pallor or icterus acute pulmonary edema - ESRD/nephrogenic likley as much as HFpEF - but w ESRD/failing diuretics - urgent HD needed - started this afternoon, anticipate improvement. NSTEMI - likely severe demand ischemia from above superimposed on known CAD. otherwise as above Subjective Saw patient at the bedside this morning. She reports shortness of breath and cough that has worsened over the past few hours. Nurse notes oxygen saturations between 86 and 91. We increased her oxygen from 6L nonrebreather mask to 12L and then to 15L. Patient denies chest pain, chest pressure, fever, sweating, chills, or other symptoms. Ordered a stat chest CT to evaluate patient's lungs given abrupt clinical change since she had the last chest xray. Review of Systems Constitutional: no fever, no chills and no sweats Respiratory: no pain with cough Cardiovascular: no chest pain, no palpitations and no lightheadedness Gastrointestinal: no abdominal pain, no nausea and no vomiting Genitourinary: no dysuria and no urinary frequency Neurologic: no numbness and no paresthesia Physical Exam Constitutional: + acute distress and + ill appearing Respiratory: + labored breathing and + cough Auscultation: + crackles and + rales; no wheezes Cardiovascular: RRR, no murmur, no edema Gastrointestinal (Abdomen): normal bowel sounds, soft, nontender, no hepatosplenomegaly Results & Data Results & Data ([facility]) Vital Signs (Past 12 Hours) Vital Signs Temp Pulse Pulse Resp BP BP Pulse Ox 01/05/20 08:09 24 90 01/05/20 07:26 86 L 01/05/20 07:25 37.2 C 102 H 22 164/102 H 81 L 01/05/20 06:19 147/86 H 01/05/20 06:18 36.8 C 82 16 153/88 H 99 01/05/20 05:00 144/95 H 01/05/20 03:09 156/94 H 01/05/20 01:34 93 H 18 100 01/05/20 01:26 36.8 C 93 H 18 156/94 H 100 Resident Activity Tracking Resident Involvement: Resident Care Provided Care Provided: Adult Hospital Medicine (1) Abdominal aortic aneurysm Presence of rupture: without rupture Qualified Code(s): I71.4 - Abdominal aortic aneurysm, without rupture (2) Hypertension Hypertension type: renovascular hypertension Qualified Code(s): I15.0 - Renovascular hypertension
[2020-01-05] MEDS ORDERED: HEPARIN SOD (PORCINE) 5,000 UNITS/ML VIAL ONE (11:53)
[2020-01-05] MEDS ORDERED: LIDOCAINE HCL 1% 20 ML VIAL ONE (11:53)
[2020-01-05 12:08] LABS: Appearance Urine Clear (Clear); Bacteria Urine Automated Negative (Negative); Bilirubin Urine Negative (Negative); Blood Urine Trace (Negative); Color Urine Yellow; Epithelial Cell Urine Auto 0-5 /lpf (0-5); Glucose Urine UA Negative (Negative); Ketones Urine Negative (Negative); Leukocyte Esterase Urine Negative (Negative); Nitrite Urine Negative (Negative); Protein Urine 1+ (Negative); RBC Urine Automated 0-4 /hpf (0-4); Specific Gravity Urine 1.011 (1.000-1.030); Urobilinogen Urine Negative (Negative); WBC Urine Automated 0 /hpf (0-5)
[2020-01-05] MEDS ORDERED: ceFAZolin 1000MG 1,000 MG/7.5 ML SYR IV ONE (12:08)
--- NOTE | 2020-01-05 12:40 | Nephrology Consultation ---
Date of Consultation January 05, 2020 Assessment & Plan (1) CKD (chronic kidney disease) stage V requiring chronic dialysis: Adriana has advanced rapidly progressive renal failure in the setting of significant renovascular disease. 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 During her recent admission, she was non-oliguric with stable labs and we had been able to defer starting dialysis. Unfortunately, she presented with rapid deterioration and evidence of flash pulmonary edema. Given the severity of the current situation, the safest option at this time is to start emergent dialysis. This is necessary for control of her volume status. Dr. Diaz has been consulted for catheter placement and given the patient's current unstable respiratory status a temporary catheter will be placed at the bedside. I have coordinated with the dialysis nurse and provided orders for an emergent treatment once catheter is in place. We will start with UF 2 L. I will plan on the patient's second dialysis treatment being arranged for tomorrow. Hepatitis B profile will be obtained. I will ask the child welfare caseworker to help coordinate arrangements for dialysis treatments post discharge for ESRD at [facility] under the care of Dr. Kaur. (2) Pulmonary edema: Diuretics provided. UF with emergent HD. CT and CXR personally reviewed. (3) Hypertension: Improving with treatment. Defer additional antihypertensive therapy at this time pending dialysis treatment. History of Present Illness Reason for Consultation: JANET/CKD Requesting Physician: Artemio Damon DO Attending Physician: Artemio Damon DO History of Present Illness Adriana Arnett is an 79-year-old female with CKD V related to severe bilateral renovascular disease. She was discharged from [facility] yesterday and returned to the ER within 24 hours with acute hypoxic respiratory distressed. Evaluation including CXR and non-contrast CT demonstrating progressive pulmonary edema despite diuretic therapy. Medical history is also notable for recent symptomatic accelerated hypertension. On she had renal Doppler which showed hemodynamically significant right renal artery stenosis. She was referred to [facility] and on 10/14/2019 she had CO2 renal angiogram and a stent was attempted to place however was not possible. postprocedure renal function stayed relatively stable. She was referred to [facility] for a 2nd opinion with an appointment scheduled for 01/07/2020. Starting mid November creatinine has been 4.5 to 5.5. Nuclear medicine renal scan on 12/30/2019 showed asymmetric renal function, 43% from right kidney and 57% from left kidney. she has significant bilateral cortical atrophy. She was initially found to have left renal artery stenosis in 2011 for which she had an angioplasty with a drug eluting stent. Since then she has been on aspirin and clopidogrel and her blood pressure was well controlled. Urinalysis was unremarkable with no proteinuria. She has longstanding history of hypertension which was previously well controlled until recently. She also has history of coronary artery disease, catheterization on January 22, 2018 showed significant luminal irregularities. Her left anterior descending artery had a 20-30% diffuse proximal disease and a 30-40% late mid stenosis after a small 2nd diagonal. Her circumflex showed a large caliber vessel with an 80-90% early mid stenosis prior to to the takeoff of a large OM 1. The OM1 had a 50-60% proximal disease. The mid circumflex was 100% occluded after the OM 1 and filled distally via collaterals. Her RCA was a moderate caliber vessel with 40-50% mid stenosis and late mid chronic occlusion with collaterals. At that time, metoprolol was added to her regimen by Cardiology. Adriana was seen and evaluated with her at the bedside this morning. I reviewed the plan of care with Dr. Diaz and Dr. Damon. Allergies Allergy/AdvReac Type Severity Reaction Status Date / Time hydrocodone Allergy Unknown RASH, HIVES Verified 01/01/20 11:51 Aldactazide AdvReac Unknown GI Unverified 07/24/17 10:20 SYMPTOMS,NAUSEA AND VOMITING hydrochlorothiazide AdvReac Unknown GI Unverified 01/01/20 11:51 SYMPTOMS,NAUSEA AND VOMITING spironolactone AdvReac Unknown GI Unverified 01/01/20 11:51 SYMPTOMS,NAUSEA AND VOMITING Sulfa (Sulfonamide AdvReac Unknown "SULFA Verified 01/01/20 11:51 Antibiotics) DRUGS": N/V Home Medications Home Medications Medication Instructions Recorded Confirmed Type cholecalciferol (vitamin D3) 50 2,000 units PO QAM 10/16/18 01/05/20 History mcg (2,000 unit) capsule nitroglycerin 0.4 mg sublingual 0.4 mg SL Q5M PRN 10/16/18 01/05/20 History tablet coenzyme Q10 200 mg capsule 200 mg PO QAM cap 10/31/18 01/05/20 History exemestane 25 mg tablet 25 mg PO DAILY@1200 tab 10/31/18 01/05/20 History aspirin [Enteric Coated Aspirin] 81 mg PO HS 01/23/19 01/05/20 History pantoprazole 40 mg tablet,delayed 40 mg PO DAILY PRN tab 02/11/19 01/05/20 History release clopidogrel 75 mg tablet 75 mg PO QAM #90 tab 12/29/19 01/05/20 Rx rosuvastatin 10 mg tablet 10 mg PO HS #90 tab 12/29/19 01/05/20 Rx amlodipine 10 mg PO DAILY #30 tab 01/04/20 01/05/20 Rx gabapentin 200 mg PO QAM #60 cap 01/04/20 01/05/20 Rx isosorbide mononitrate 60 mg PO DAILY@1200 #30 tab 01/04/20 01/05/20 Rx metoprolol succinate 50 mg PO HS #30 tab 01/04/20 01/05/20 Rx ondansetron 4 mg PO Q6H PRN #10 tab 01/04/20 01/05/20 Rx tramadol 50 mg PO Q12 PRN #0 tab 01/04/20 01/05/20 Rx Patient History Medical History Abdominal aortic aneurysm Anemia Cancer of left breast, stage 1 (07/23/15) Chronic kidney disease, stage 4 (severe) Chronic kidney disease, stage V Degenerative joint disease, multiple joints on both sides of body Dyslipidemia Fibromyalgia Hypertension Lumbar canal stenosis Peripheral neuropathy Renal artery stenosis Right renal artery stenosis Ulcerative colitis (03/06/12) Word finding difficulty Surgical History H/O colectomy (03/06/12) History of colon surgery History of intravascular stent placement percutaneous renal History of partial mastectomy of left breast Family History Mother Cardiac disorder Colon cancer Hypertension Father Cardiac disorder Colon cancer Cancer Family/Other Coronary arteriosclerosis Social History Smoking Status: Never smoker Hx Alcohol Use: No Hx Substance Use: No Preferred Language: Korean Communication Ability: Effective Orthopaedic Technologist Required: No Beliefs That Will Affect Care: None marital status: Current Living Situation: Spouse current occupational status: retired How many Children do You have: 1 Feels Safe at Home: Yes Assistive Devices: Glasses Review of Systems Review of Systems: All systems reviewed & are unremarkable except as noted in HPI & below Constitutional: no weight loss, no weight gain and no problem reported Eyes: no problem reported Ear, Nose, Mouth, Throat: no problem reported Respiratory: no problem reported Cardiovascular: no problem reported Gastrointestinal: no problem reported Musculoskeletal: no problem reported Integumentary: no problem reported Neurologic: no problem reported Psychiatric: no problem reported Endocrine: no problem reported Hematologic / Lymphatic: no problem reported Physical Exam Constitutional: well developed and + in distress; no acute distress Eyes: + anicteric sclerae; no corneal abnormality ENMT: Mouth: no oral mucosal abnormality and oral mucous membranes not dry Neck: normal visual inspection and trachea midline Respiratory: normal respiratory effort, + respiratory distress and + tachypneic Auscultation: + rales Cardiovascular: Rate/Rhythm: + tachycardic Heart Sounds: normal S1, normal S2 and + murmur Vessels: + JVD Extremities: no edema Musculoskeletal: Extremities: + cyanosis; no clubbing Skin: normal turgor; no lesions Neurologic: Motor/Sensory: no tremor and no asterixis Psychiatric: Orientation: alert and oriented x 3 Results & Data ([facility]) Vital Signs (Past 12 Hours) Vital Signs Temp Pulse Pulse Pulse Resp BP BP 01/05/20 12:13 36.9 C 98 H 97 H 22 127/77 01/05/20 11:44 93 H 20 156/93 H 01/05/20 08:09 24 01/05/20 07:26 01/05/20 07:25 37.2 C 102 H 22 164/102 H 01/05/20 06:19 147/86 H 01/05/20 06:18 36.8 C 82 16 153/88 H 01/05/20 05:00 144/95 H 01/05/20 03:09 156/94 H 01/05/20 01:34 93 H 18 01/05/20 01:26 36.8 C 93 H 18 156/94 H Pulse Ox 01/05/20 12:13 99 01/05/20 11:44 91 01/05/20 08:09 90 01/05/20 07:26 86 L 01/05/20 07:25 81 L 01/05/20 06:19 01/05/20 06:18 99 01/05/20 05:00 01/05/20 03:09 01/05/20 01:34 100 01/05/20 01:26 100 Laboratory Results Laboratory Results - last 24 hr 01/05/20 01/05/20 01/05/20 01:45 01:45 01:45 WBC 9.81 RBC 3.07 L Hgb 9.9 L Hct 28.9 L MCV 94.1 MCH 32.2 MCHC 34.3 RDW Std Deviation 46.3 RDW Coeff of Max 13.4 Plt Count 184 MPV 10.1 Immature Gran % (Auto) 0.2 Neut % (Auto) 72.6 Lymph % (Auto) 14.2 [place] % (Auto) 8.6 Eos % (Auto) 4.1 Baso % (Auto) 0.3 Neut # (Auto) 7.13 H Lymph # (Auto) 1.39 [place] # (Auto) 0.84 H Eos # (Auto) 0.40 Baso # (Auto) 0.03 Immature Gran # (Auto) 0.02 PT 12.1 H INR 1.2 H APTT 27.6 PTT Ratio 1.0 D-Dimer 6350 H* Sodium 141 Potassium 3.3 L Chloride 105 Carbon Dioxide 25 Anion Gap 10.0 BUN 39 H Creatinine 5.33 H* D Est Cr Clr Drug Dosing 7.4 Est GFR ( Amer) 8.1 Est GFR (Non-Af Amer) 7.0 BUN/Creatinine Ratio 7.2 L Glucose 101 H Calcium 8.2 L Total Bilirubin 0.5 AST 23 ALT 14 Alkaline Phosphatase 66 Troponin I 0.469 H* Total Protein 6.9 Albumin 3.4 Globulin 3.5 Albumin/Globulin Ratio 1.0 Urine Color Urine Appearance Urine pH Ur Specific [place] Urine Protein Urine Glucose (UA) Urine Ketones Urine Blood Urine Nitrite Urine Bilirubin Urine Urobilinogen Ur Leukocyte Esterase Urine WBC (Auto) Urine RBC (Auto) U Hyaline Cast (Auto) U Epithel Cells (Auto) Urine Bacteria (Auto) COVID-19 Eval Order SARS-CoV-2, RNA, NAAT 01/05/20 01/05/20 01/05/20 06:32 07:39 07:39 WBC 10.93 H RBC 3.49 L Hgb 11.0 L Hct 32.7 L MCV 93.7 MCH 31.5 MCHC 33.6 RDW Std Deviation 45.6 RDW Coeff of Max 13.4 Plt Count 185 MPV 10.3 Immature Gran % (Auto) 0.3 Neut % (Auto) 81.8 Lymph % (Auto) 10.1 [place] % (Auto) 5.8 Eos % (Auto) 1.6 Baso % (Auto) 0.4 Neut # (Auto) 8.95 H Lymph # (Auto) 1.10 L [place] # (Auto) 0.63 H Eos # (Auto) 0.18 Baso # (Auto) 0.04 Immature Gran # (Auto) 0.03 H PT 11.9 INR 1.1 APTT 28.1 PTT Ratio 1.0 D-Dimer Sodium Potassium Chloride Carbon Dioxide Anion Gap BUN Creatinine Est Cr Clr Drug Dosing Est GFR ( Amer) Est GFR (Non-Af Amer) BUN/Creatinine Ratio Glucose Calcium Total Bilirubin AST ALT Alkaline Phosphatase Troponin I 2.110 H* Total Protein Albumin Globulin Albumin/Globulin Ratio Urine Color Urine Appearance Urine pH Ur Specific [place] Urine Protein Urine Glucose (UA) Urine Ketones Urine Blood Urine Nitrite Urine Bilirubin Urine Urobilinogen Ur Leukocyte Esterase Urine WBC (Auto) Urine RBC (Auto) U Hyaline Cast (Auto) U Epithel Cells (Auto) Urine Bacteria (Auto) COVID-19 Eval Order SARS-CoV-2, RNA, NAAT 01/05/20 01/05/20 01/05/20 Unknown Unknown Unknown WBC RBC Hgb Hct MCV MCH MCHC RDW Std Deviation RDW Coeff of Max Plt Count MPV Immature Gran % (Auto) Neut % (Auto) Lymph % (Auto) [place] % (Auto) Eos % (Auto) Baso % (Auto) Neut # (Auto) Lymph # (Auto) [place]le # (Auto) Eos # (Auto) Baso # (Auto) Immature Gran # (Auto) PT INR APTT PTT Ratio D-Dimer Sodium Potassium Chloride Carbon Dioxide Anion Gap BUN Creatinine Est Cr Clr Drug Dosing Est GFR ( Amer) Est GFR (Non-Af Amer) BUN/Creatinine Ratio Glucose Calcium Total Bilirubin AST ALT Alkaline Phosphatase Troponin I Total Protein Albumin Globulin Albumin/Globulin Ratio Urine Color Yellow Urine Appearance Clear Urine pH 5.0 Ur Specific [place] 1.011 Urine Protein 1+ H Urine Glucose (UA) Negative Urine Ketones Negative Urine Blood Trace H Urine Nitrite Negative Urine Bilirubin Negative Urine Urobilinogen Negative Ur Leukocyte Esterase Negative Urine WBC (Auto) 0 Urine RBC (Auto) 0-4 U Hyaline Cast (Auto) 1-5 U Epithel Cells (Auto) 0-5 Urine Bacteria (Auto) Negative COVID-19 Eval Order Covid19 IDNow atMNDC SARS-CoV-2, RNA, NAAT NEGATIVE PG Care Time/CCT Total # of Minutes Spent Total Time Spent with Patient: Total time spent is greater than 50% in coordination of care (as documented) at patient's floor/unit and/or counseling patient: Coding Level of Care Code 39810 Inpt Consult Level 5 Diagnoses CKD (chronic kidney disease) stage V requiring chronic dialysis N18.6; Z99.2 Pulmonary edema J81.0 Chronicity: acute Hypertension I15.0 Hypertension type: renovascular hypertension (1) Hypertension Hypertension type: renovascular hypertension Qualified Code(s): I15.0 - Renovascular hypertension (2) Pulmonary edema Chronicity: acute Qualified Code(s): J81.0 - Acute pulmonary edema
--- NOTE | 2020-01-05 12:57 | Operative Report ---
Post Operative Report Pre & Post Diagnosis Operation Date: 01/05/20 11:30 Pre-Op Diagnosis: Acute Kidney Injury Post-Op Diagnosis: Acute Kidney Injury I identified the patient and participated in the time-out.: Yes Procedure Operation Date: 01/05/20 11:30 Actual Procedures p Temporary Perm Catheter Insertion, Right Femoral Vein Approach, Fluroscopy for Positioning. (Right) - Prudencio Diaz MD Surgeon Prudencio Diaz MD Section Weaver None Estimated Blood Loss 5 Findings Consistent with Post-Op Diagnosis Specimens None Anesthesia Type Local Complications none Disposition Accompanied Patient To Recovery: No Disposition: Recovery Room Indications Patient is a 1-year-old female with chronic kidney disease. She was admitted with pulmonary edema and decreased urinary output. Dialysis was recommended. Due to her oxygen requirement we elected to place a temporary catheter. I have discussed the risks options and benefits of the procedure with the patient. The patient understands the risks options and benefits and agrees to the procedure. Description of Procedure Patient was taken to the angio suite and placed in the supine position. The right groin was prepped and draped in a sterile manner. The patient was identified and a timeout performed. Local anesthesia was then administered to the appropriate areas of the groin. The right femoral vein was then punctured. A guidewire was then passed centrally under fluoroscopic imaging. A stab wound was then made and a 20 cm temporary dialysis catheter was passed over the guidewire. The catheter was then sutured in place using nylon sutures. Both ports aspirated and flushed easily and were then packed with heparin. A sterile dressing was applied to the catheter. The patient left the operation room in satisfactory condition and tolerated the procedure well. All needle and sponge counts were correct at the end of the procedure. I attest to the content of the Intraoperative Record and any orders documented therein. Any exceptions are noted below.
--- NOTE | 2020-01-05 13:00 | XCELERA ---
[id number]
--- NOTE | 2020-01-05 13:43 | Anesthesiology Consultation ---
Date of Service January 05, 2020 Assessment & Plan (1) Encounter for pre-operative examination: Chart Review Chart Review: Acceptable Risk for Surgery and Patient NOT seen in Pre Admission Testing Consults Requested none ASA [id number] Proposed Anesthesia Anesthesia Type: MAC Risk / Benefits Reviewed With: PT / POA / Parent / Guardian, Accepts Plan and In formed Consent Obtained History Surgery Operation Date: 01/05/20 11:30 Proposed Procedures p Perm Catheter Insertion - Prudencio Diaz MD Height/Weight Height: 5 ft 6 in Weight: 56.8 kg Allergies Allergy/AdvReac Type Severity Reaction Status Date / Time hydrocodone Allergy Unknown RASH, HIVES Verified 01/01/20 11:51 Aldactazide AdvReac Unknown GI Unverified 07/24/17 10:20 SYMPTOMS,NAUSEA AND VOMITING hydrochlorothiazide AdvReac Unknown GI Unverified 01/01/20 11:51 SYMPTOMS,NAUSEA AND VOMITING spironolactone AdvReac Unknown GI Unverified 01/01/20 11:51 SYMPTOMS,NAUSEA AND VOMITING Sulfa (Sulfonamide AdvReac Unknown "SULFA Verified 01/01/20 11:51 Antibiotics) DRUGS": N/V Medications Home Medications Medication Instructions Recorded Confirmed Last Taken cholecalciferol (vitamin D3) 50 2,000 units PO QAM 10/16/18 01/05/20 12/31/19 mcg (2,000 unit) capsule nitroglycerin 0.4 mg sublingual 0.4 mg SL Q5M PRN 10/16/18 01/05/20 12/31/19 tablet coenzyme Q10 200 mg capsule 200 mg PO QAM cap 10/31/18 01/05/20 12/31/19 exemestane 25 mg tablet 25 mg PO DAILY@1200 tab 10/31/18 01/05/20 12/31/19 aspirin [Enteric Coated Aspirin] 81 mg PO HS 01/23/19 01/05/20 12/31/19 pantoprazole 40 mg tablet,delayed 40 mg PO DAILY PRN tab 02/11/19 01/05/20 12/31/19 release clopidogrel 75 mg tablet 75 mg PO QAM #90 tab 12/29/19 01/05/20 12/31/19 rosuvastatin 10 mg tablet 10 mg PO HS #90 tab 12/29/19 01/05/20 12/31/19 amlodipine 10 mg PO DAILY #30 tab 01/04/20 01/05/20 Unknown gabapentin 200 mg PO QAM #60 cap 01/04/20 01/05/20 12/31/19 isosorbide mononitrate 60 mg PO DAILY@1200 #30 tab 01/04/20 01/05/20 Unknown metoprolol succinate 50 mg PO HS #30 tab 01/04/20 01/05/20 Unknown ondansetron 4 mg PO Q6H PRN #10 tab 01/04/20 01/05/20 Unknown tramadol 50 mg PO Q12 PRN #0 tab 01/04/20 01/05/20 12/31/19 Active Medications Generic Name Dose Route Start Last Admin Trade Name Freq PRN Reason Stop Dose Admin Amlodipine Besylate 10 mg 01/05/20 09:00 01/05/20 07:42 Amlodipine Besylate 5 Mg Tab PO 02/04/20 08:59 10 mg DAILY CARLEY Administration Clopidogrel Bisulfate 75 mg 01/05/20 09:00 01/05/20 09:10 Clopidogrel Bisulfate 75 Mg Tab PO 02/04/20 08:59 Not Given QAM CARLEY Gabapentin 200 mg 01/05/20 09:00 01/05/20 07:42 Gabapentin 100 Mg Cap PO 02/04/20 08:59 200 mg QAM CARLEY Administration Furosemide 80 mg/ Syringe 8 mls @ 4 mls/min 01/05/20 06:30 01/05/20 07:24 IV 02/04/20 06:29 4 mls/min [id number] CARLEY Administration Heparin Sodium/Dextrose 25,000 units in 500 mls @ 0 mls/hr 01/05/20 07:00 01/05/20 10:29 Heparin Sodium/Dextrose IV 02/04/20 06:59 0 units/hr .Q0M CARLEY 0 mls/hr Titration Protocol 0 UNITS/HR Miscellaneous 1 ea 01/05/20 06:30 01/05/20 07:31 Exemastane~Order Awaiting Action N/A 02/04/20 06:29 Not Given QS CARLEY Ondansetron HCl 4 mg 01/05/20 06:14 01/05/20 07:36 Ondansetron Inj 2 Mg/Ml 2 Ml Vial IV 02/04/20 06:13 4 mg Q6H PRN Administration Nausea Pantoprazole Sodium 40 mg 01/05/20 06:14 01/05/20 07:42 Pantoprazole 40 Mg Tab PO 02/04/20 06:13 40 mg DAILY PRN Administration Acid Reflux Vitamin D 2,000 units 01/05/20 09:00 01/05/20 07:42 Cholecalciferol 1,000 Units 25 Mcg Tab PO 02/04/20 08:59 2,000 units QAM CARLEY Administration NPO Date Last Intake of Fluids: 01/05/20 Time Last Intake of Fluids: 08:00 Date Last Intake of Solids: 01/05/20 Time Last Intake of Solids: 12:00 Past Medical History Medical History Abdominal aortic aneurysm Anemia Cancer of left breast, stage 1 (07/23/15) Chronic kidney disease, stage 4 (severe) Chronic kidney disease, stage V Degenerative joint disease, multiple joints on both sides of body Dyslipidemia Fibromyalgia Hypertension Lumbar canal stenosis Peripheral neuropathy Renal artery stenosis Right renal artery stenosis Ulcerative colitis (03/06/12) Word finding difficulty Exercise / Class Metabolic Activity II 4-5 Yardwork/Stairs/Walk up hill Past Family History Family History Mother Cardiac disorder Colon cancer Hypertension Father Cardiac disorder Colon cancer Cancer Family/Other Coronary arteriosclerosis Past Surgical History Surgical History H/O colectomy (03/06/12) History of colon surgery History of intravascular stent placement percutaneous renal History of partial mastectomy of left breast Past Anesthesia History No Hx of Anesthesia Complications and No Family Hx of Anesthesia Complications History of PONV No Hx of PONV and No Hx of Motion Sickness Social History Smoking Status: Never smoker Hx Alcohol Use: No Hx Substance Use: No Physical Exam Vital Signs Last Vital Signs Temp 36.9 C 01/05/20 12:13 Pulse 97 H 01/05/20 12:13 Resp 22 01/05/20 12:13 BP 127/77 01/05/20 12:13 Pulse Ox 99 01/05/20 12:13 ENMT Mouth: no dentition abnormality Thyromental Distance: > or= 3.5 Finger Breadths Mallampati Class: II Neck normal visual inspection Respiratory normal respiratory effort Auscultation: + diminished lung sounds and + crackles Cardiovascular Rate/Rhythm: regular rate and regular rhythm Extremities: + edema Psychiatric Orientation: alert Testing Laboratory Results 01/05/20 07:39 01/05/20 01:45 PT 11.9 Seconds (9.0-12.0) 01/05/20 07:39 INR 1.1 (0.9-1.1) 01/05/20 07:39 APTT 28.1 Seconds (21.0-31.0) 01/05/20 07:39 Urine Color Yellow 01/05/20 Unknown Urine Appearance Clear (Clear) 01/05/20 Unknown Urine pH 5.0 (4.5-7.5) 01/05/20 Unknown Ur Specific [place] 1.011 (1.000-1.030) 01/05/20 Unknown Urine Protein 1+ (Negative) H 01/05/20 Unknown Urine Glucose (UA) Negative (Negative) 01/05/20 Unknown Urine Ketones Negative (Negative) 01/05/20 Unknown Urine Nitrite Negative (Negative) 01/05/20 Unknown Ur Leukocyte Esterase Negative (Negative) 01/05/20 Unknown Urine WBC (Auto) 0 /hpf (0-5) 01/05/20 Unknown Urine RBC (Auto) 0-4 /hpf (0-4) 01/05/20 Unknown U Hyaline Cast (Auto) 1-5 /lpf (0-5) 01/05/20 Unknown U Epithel Cells (Auto) 0-5 /lpf (0-5) 01/05/20 Unknown Urine Bacteria (Auto) Negative (Negative) 01/05/20 Unknown
--- NOTE | 2020-01-05 13:44 | Anesthesiology Progress Note ---
Date of Service January 05, 2020 Anesthesia Post Procedure Vital Signs Vital Signs: Temp Pulse Pulse Pulse Resp BP BP 01/05/20 12:13 36.9 C 98 H 97 H 22 127/77 01/05/20 11:44 93 H 20 156/93 H 01/05/20 08:09 24 01/05/20 07:26 01/05/20 07:25 37.2 C 102 H 22 164/102 H 01/05/20 06:19 147/86 H 01/05/20 06:18 36.8 C 82 16 153/88 H 01/05/20 05:00 144/95 H 01/05/20 03:09 156/94 H 01/05/20 01:34 93 H 18 01/05/20 01:26 36.8 C 93 H 18 156/94 H Pulse Ox 01/05/20 12:13 99 01/05/20 11:44 91 01/05/20 08:09 90 01/05/20 07:26 86 L 01/05/20 07:25 81 L 01/05/20 06:19 01/05/20 06:18 99 01/05/20 05:00 01/05/20 03:09 01/05/20 01:34 100 01/05/20 01:26 100 Pain Intensity Left Ribs: Pain Intensity: 4 Transfer of Care Handoff Completed per policy Notes Mental Status: alert / awake / arousable Patient Amnestic to Procedure: No (no sedation given. monitored care only) Nausea / Vomiting: adequately controlled Pain: adequately controlled Airway Patency, RR, SpO2: stable & adequate BP & HR: stable & adequate Hydration State: stable & adequate Anesthetic Complications: no major complications apparent
[2020-01-05] MEDS: ISOSORBIDE MONO EXTENDED REL 60 MG TABCR PO SCH (14:03)
[2020-01-05 14:13] LABS: Hepatitis B Surface Ab Quant < 3.10 mIU/mL (>or=10mIU/mL Immune); Hepatitis B Surface Antibody Non-Immune
[2020-01-05 14:24] LABS: Hepatitis B Surface Antigen Neg (Neg)
--- NOTE | 2020-01-05 14:38 | Cardiology Consultation ---
Date of Consultation January 05, 2020 Assessment & Plan (1) Non-ST elevation (NSTEMI) myocardial infarction: 2. Chronic renal insufficiency requiring urgent dialysis 3. Pulmonary edema 4. Severe multivessel coronary artery diseaseoccluded distal right, occluded distal circumflex, 90% focal stenosis in mid circumflex into OM1 5. Moderate mitral regurgitation 6. Hypertension 7. Bilateral renal artery stenosis 8. Lower extremity peripheral arterial disease 9. Anemia Patient admitted with acute shortness of breath likely secondary to volume overload in the setting of progressive chronic renal failure. Minimal response to IV diuretics. Temporary dialysis catheter placed earlier today and awaiting initiation of hemodialysis. Patient with known severe coronary disease including high-grade circumflex stenosis. Possible ACS contributing to acute worsening of symptoms last night. At present though patient is chest pain-free, hemodynamically and electrically stable. LV function is preserved although does have worsened mitral regurgitation (?ischemic MR). In the setting of patient's renal failure plan for continued medical management of patient's coronary artery disease. No plans for further invasive evaluation unless refractory chest pain or pulmonary edema not responsive to dialysis. From a vascular standpoint distal perfusion to feet stable. No indication for further testing/intervention at this time. Was to see [facility] vascular today but unlikely that an attempted renal invention would change overall picture much. Recommendations: Continue to trend troponin until peak Resume heparin infusion as able, continue 48 hours Continue DAPT with aspirin, clopidogrel Continue current Toprol-XL, Imdur, amlodipine. Continue statin. We will follow History of Present Illness Attending Physician: Artemio Damon, History of Present Illness Mrs. Arnett is a very pleasant 79-year-old woman with a history of severe multivessel coronary artery disease, advanced chronic renal insufficiency in the setting of bilateral renal artery stenosis and lower extremity PAD readmitted with worsening dyspnea. Patient well-known to me from the outpatient setting. In December 2017 had worsening exertional dyspnea, positive stress test with signs of inferior ischemia and underwent cardiac cath which revealed a chronic late-mid RCA total occlusion with collaterals, 80-90% early-mid circumflex stenosis and 100% chronic occlusion of the distal circumflex after takeoff of large OM1. Medical therapy was recommended with consideration of PCI of early-mid circumflex into large OM1 if refractory symptoms. Has been largely stable from a cardiac standpoint since that time. More recently has been dealing with progressive renal failure. In September 2019 [place] [facility] [place] Repeat renal artery stenting was unsuccessful. Procedure likely complicated by atheroemboli to her feet and kidneys. Seen back in November with blue toes and had lower extremity arterial duplex which showed severe right SFA disease followed by occluded PT and INES. Left leg had a short mid SFA occlusion followed by occluded distal [employer]. Angiogram was considered at that time but preprocedure creatinine up to 4.76 from baseline of 2. Has been followed by her broadcast operations technician since that time with increasing creatinine up to 6 most recently as an outpatient. Was admitted 01/01/2020 with hypertensive emergency and word finding difficulty. Stroke work- up unremarkable. Discharged home yesterday on increased Toprol-XL, Imdur along with new amlodipine. Last night around 10 AM became acutely short of breath while in bed. Some associated chest discomfort. Return to ED where he was hypoxic requiring escalating O2 up to 9 L this morning. Seen urgently by nephrology and dialysis recommended. Add temporary dialysis catheter placed to right common femoral vein earlier today. Currently she states that breathing is somewhat easier but still labored. Denies any chest pain. Telemetry reviewedno events. ECG with subtle lateral ST depressions but no other significant changes. Troponin has trended up to 2.48. Echo showed preserved LV function with no new regional wall motion abnormalities. Mild regurgitation at worse, moderate. She has had the following studies/procedures: 1. Dobutamine stress echo 01/15/18: Baseline echo with normal LV systolic function and proximal inferior and inferoseptal wall motion abnormality. Negative dobutamine stress echo for ischemia at >100% MPHR. 2.Cardiac cath 01/22/18: LM- luminal irregularities. LAD 20-30% diffuse proximal disease, 30-40% late-mid stenosis after small second diagonal. Circumflex - large caliber vessel with 80-90% early-mid stenosis prior to takeoff of large OM1, OM1 with 50-60% proximal disease, mid circumflex 100% occluded after OM1 and fills distally via left to left collaterals. RCA - moderate caliber vessel, 40-50% mid stenosis, late-mid chronic occlusion with faint right to right collaterals. Distal vessels fill via left to right collaterals. Allergies Allergy/AdvReac Type Severity Reaction Status Date / Time hydrocodone Allergy Unknown RASH, HIVES Verified 01/01/20 11:51 Aldactazide AdvReac Unknown GI Unverified 07/24/17 10:20 SYMPTOMS,NAUSEA AND VOMITING hydrochlorothiazide AdvReac Unknown GI Unverified 01/01/20 11:51 SYMPTOMS,NAUSEA AND VOMITING spironolactone AdvReac Unknown GI Unverified 01/01/20 11:51 SYMPTOMS,NAUSEA AND VOMITING Sulfa (Sulfonamide AdvReac Unknown "SULFA Verified 01/01/20 11:51 Antibiotics) DRUGS": N/V Home Medications Home Medications Medication Instructions Recorded Confirmed Type cholecalciferol (vitamin D3) 50 2,000 units PO QAM 10/16/18 01/05/20 History mcg (2,000 unit) capsule nitroglycerin 0.4 mg sublingual 0.4 mg SL Q5M PRN 10/16/18 01/05/20 History tablet coenzyme Q10 200 mg capsule 200 mg PO QAM cap 10/31/18 01/05/20 History exemestane 25 mg tablet 25 mg PO DAILY@1200 tab 10/31/18 01/05/20 History aspirin [Enteric Coated Aspirin] 81 mg PO HS 01/23/19 01/05/20 History pantoprazole 40 mg tablet,delayed 40 mg PO DAILY PRN tab 02/11/19 01/05/20 History release clopidogrel 75 mg tablet 75 mg PO QAM #90 tab 12/29/19 01/05/20 Rx rosuvastatin 10 mg tablet 10 mg PO HS #90 tab 12/29/19 01/05/20 Rx amlodipine 10 mg PO DAILY #30 tab 01/04/20 01/05/20 Rx gabapentin 200 mg PO QAM #60 cap 01/04/20 01/05/20 Rx isosorbide mononitrate 60 mg PO DAILY@1200 #30 tab 01/04/20 01/05/20 Rx metoprolol succinate 50 mg PO HS #30 tab 01/04/20 01/05/20 Rx ondansetron 4 mg PO Q6H PRN #10 tab 01/04/20 01/05/20 Rx tramadol 50 mg PO Q12 PRN #0 tab 01/04/20 01/05/20 Rx Patient History Medical History Abdominal aortic aneurysm Anemia Cancer of left breast, stage 1 (07/23/15) Chronic kidney disease, stage 4 (severe) Chronic kidney disease, stage V Degenerative joint disease, multiple joints on both sides of body Dyslipidemia Fibromyalgia Hypertension Lumbar canal stenosis Peripheral neuropathy Renal artery stenosis Right renal artery stenosis Ulcerative colitis (03/06/12) Word finding difficulty Surgical History H/O colectomy (03/06/12) History of colon surgery History of intravascular stent placement percutaneous renal History of partial mastectomy of left breast Family History Mother Cardiac disorder Colon cancer Hypertension Father Cardiac disorder Colon cancer Cancer Family/Other Coronary arteriosclerosis Social History Smoking Status: Never smoker Hx Alcohol Use: No Hx Substance Use: No Preferred Language: Moroccan Communication Ability: Effective Middle School Tutor Required: No Beliefs That Will Affect Care: None marital status: Current Living Situation: Spouse current occupational status: retired How many Children do You have: 1 Feels Safe at Home: Yes Assistive Devices: Glasses Review of Systems Review of Systems: All systems reviewed & are unremarkable except as noted in HPI & below Physical Exam Physical Exam: General: Comfortable, no acute distress Eyes: Sclerae anicteric, extraocular movements intact Lungs: Decreased breath sounds at right base, crackles on the left Cardiac: Regular rate and rhythm, 2 out of 6 holosystolic murmur at the apex Vascular: 2+ radial. 1+ DP on the right, 1+ PT on the left. Toes with purplish hue, unchanged from last month. Capillary refill normal. Distal toes tender Abdomen: Soft, nontender, nondistended, positive bowel sounds. Extremities: no peripheral edema Neuro: Nonfocal Psych: Alert orient x3, normal affect and mood Results & Data ([facility] [place]) Vital Signs (Past 12 Hours) Vital Signs Temp Pulse Pulse Resp BP BP Pulse Ox 01/05/20 14:01 99.1 F 92 H 20 153/92 H 93 01/05/20 13:21 99.1 F 91 H 91 H 18 151/94 H 92 01/05/20 12:13 98.4 F 98 H 97 H 22 127/77 99 01/05/20 11:44 93 H 20 156/93 H 91 01/05/20 08:09 24 90 01/05/20 07:26 86 L 01/05/20 07:25 99.0 F 102 H 22 164/102 H 81 L 01/05/20 06:19 147/86 H 01/05/20 06:18 98.2 F 82 16 153/88 H 99 01/05/20 05:00 144/95 H 01/05/20 03:09 156/94 H PG Care Time/CCT Total # of Minutes Spent Total Time Spent with Patient: Total time spent is greater than 50% in coordination of care (as documented) at patient's floor/unit and/or counseling patient: Coding Level of Care Code 29894 Initial Inpt Care Lvl 3 Diagnoses Non-ST elevation (NSTEMI) myocardial infarction I21.4
[2020-01-05 15:21] LABS: Partial Thromboplastin Ratio 1.2; Partial Thromboplastin Time 34.5 Seconds (21.0-31.0)
--- NOTE | 2020-01-05 16:03 | Electrocardiogram Report ---
Test Reason : Blood Pressure : / mmHG Vent. Rate : 100 BPM Atrial Rate : 100 BPM P-R Int : 136 ms QRS Dur : 090 ms QT Int : 374 ms P-R-T Axes : 039 068 -21 degrees QTc Int : 482 ms Normal sinus rhythm Possible Left atrial enlargement Nonspecific ST and T wave abnormality Abnormal ECG When compared with ECG of 01-JAN-2020 10:41, ST now depressed in Lateral leads Nonspecific T wave abnormality now evident in Anterior leads Confirmed by Loco Tolentino ([id number]) on 01/05/2020 4:02:41 PM Referred By: REFERRED SELF Confirmed By:Loco Tolentino
--- NOTE | 2020-01-05 16:50 | Billing Data ---
Date of Service January 05, 2020 Coding Level of Care Code 58190 Subseq Hosp Care Lvl 3
[2020-01-05] MEDS ORDERED: HEPARIN IV BOLUS 4,000 UNITS in SYRINGE 0 ML IV ONE (17:00)
[2020-01-05] MEDS: ROSUVASTATIN CALCIUM 10 MG TAB PO SCH (20:21)
[2020-01-05] MEDS: METOPROLOL SUCC 50MG EXT REL TAB PO SCH (20:21)
[2020-01-05] MEDS: ASPIRIN 81 MG ECTAB PO SCH (20:22)
--- NOTE | 2020-01-06 05:17 | Billing Data ---
Date of Service January 06, 2020 Coding Level of Care Code 39603 Initial Inpt Care Lvl 3
[2020-01-06 07:36] LABS: Partial Thromboplastin Ratio 3.1
[2020-01-06] MEDS: amLODIPine BESYLATE 5 MG TAB PO SCH (07:59)
[2020-01-06] MEDS: CLOPIDOGREL BISULFATE 75 MG TAB PO SCH (08:01)
[2020-01-06] MEDS: GABAPENTIN 100 MG CAP PO SCH (08:01)
[2020-01-06] MEDS: CHOLECALCIFEROL 1,000 UNITS 25 MCG TAB PO SCH (08:01)
[2020-01-06] MEDS: FUROSEMIDE 80 MG in SYRINGE 0 ML IV SCH (08:01)
[2020-01-06 08:30] LABS: Basophils # (auto) 0.03 K/uL (0-0.2); Basophils % (auto) 0.3 %; Eosinophils % (auto) 1.8 %; Hematocrit (blood only) 25.6 % (37-47); Hemoglobin 8.8 g/dL (12.0-16.0); Immature Granulocytes # (auto) 0.05 K/uL (0.00-0.02); Immature Granulocytes % (auto) 0.4 %; Lymphocytes # (auto) 1.64 K/uL (1.2-3.4); Lymphocytes % (auto) 14.4 %; Mean Corpuscular Hemoglobin 32.5 pg (25-34); Mean Corpuscular Volume 94.5 fL (80-100); Mean Platelet Volume 10.7 fL (7.4-10.4); Monocytes # (auto) 0.83 K/uL (0.11-0.59); Monocytes % (auto) 7.3 %; Neutrophils # (auto) 8.63 K/uL (1.4-6.5); Neutrophils % (auto) 75.8 %; Platelet Count 180 K/uL (130-400); RDW Coefficient of Variation 13.5 % (11.5-14.5); RDW Standard Deviation 46.8 fL (36.4-46.3); Red Blood Count 2.71 M/uL (4.2-5.4); White Blood Count 11.38 K/uL (4.8-10.8)
[2020-01-06 08:40] LABS: Albumin Globulin Ratio 0.8 (0.9-2); Albumin Level 2.9 gm/dl (3.4-5.0); Bilirubin,Total 0.6 mg/dl (0.2-1); Calcium 8.4 mg/dl (8.5-10.1); Creatinine Clr Calc Pharmacy 8.5 ml/min; Est GFR (African American) 9.3; Globulin 3.5 gm/dl (2.5-4.0); Potassium 3.6 mmol/L (3.5-5.1); Total Protein 6.4 gm/dl (6.4-8.2)
[2020-01-06] MEDS ORDERED: IRON SUCROSE 200 MG in SYRINGE 0 ML IV ONE (09:00)
[2020-01-06] MEDS ORDERED: EPOETIN ALFA 10,000 UNITS/ML VIAL IV ONE (09:00)
--- NOTE | 2020-01-06 09:01 | Nephrology Progress Note ---
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 Started HD via R femoral HD catheter 01/04. No complications with HD yesterday. 2 L net UF. Volume status significantly improved. Second HD treatment today. Orders entered into EMR and reviewed with nurse. 4 K bath to correct serum potassium. UF goal today 1 L. Hold heparin with treatment. Metabolic profile acceptable. Medications appropriately dosed for IHD. Case management consult to assist with outpatient dialysis for ESRD at [facility] under the care of Dr. Kaur. (2) Pulmonary edema: Improved. Additional 1 L UF today. (3) Hypertension: BP and volume status are currently acceptable. (4) Anemia: Epogen 02468 unit provided last week. H/H dropped overnight. Will provide an additional 78421 units today with 200 mg IV venofer. Tsat 15 last week. Admission and Anticipated Discharge Date Admission Date: January 05, 2020 Subjective Bleeding for HD catheter exit site noted overnight. Heparin gtt held. Adriana feels well. Breathing significantly improved. No chest pain. No palpitations. No lightheadedness or dizziness. Bleeding controlled with pressure application. Review of Systems Review of Systems: All systems reviewed & are unremarkable except as noted in HPI & below Physical Exam Constitutional: well developed and + in distress; no acute distress Eyes: + anicteric sclerae; no corneal abnormality ENMT: Mouth: no oral mucosal abnormality and oral mucous membranes not dry Neck: normal visual inspection and trachea midline Respiratory: normal respiratory effort, + respiratory distress and + tachypneic Auscultation: + rales Cardiovascular: Rate/Rhythm: + tachycardic Heart Sounds: normal S1, normal S2 and + murmur Vessels: + JVD Extremities: no edema Musculoskeletal: Extremities: + cyanosis; no clubbing R femoral HD catheter Skin: normal turgor; no lesions Neurologic: Motor/Sensory: no tremor and no asterixis Psychiatric: Orientation: alert and oriented x 3 Results & Data ([facility]) Vital Signs (Past 12 Hours) Vital Signs Temp Pulse Pulse Resp BP Pulse Ox 01/06/20 07:56 36.9 C 80 18 130/57 L 95 01/06/20 07:28 78 01/06/20 03:46 37.1 C 90 20 150/87 H 96 01/06/20 02:35 62 01/05/20 23:15 37.0 C 87 18 153/88 H 94 Laboratory Results Laboratory Results - last 24 hr 01/05/20 01/05/20 01/05/20 13:13 13:13 14:43 WBC RBC Hgb Hct MCV MCH MCHC RDW Std Deviation RDW Coeff of Max Plt Count MPV Immature Gran % (Auto) Neut % (Auto) Lymph % (Auto) [place] % (Auto) Eos % (Auto) Baso % (Auto) Neut # (Auto) Lymph # (Auto) [place] # (Auto) Eos # (Auto) Baso # (Auto) Immature Gran # (Auto) APTT 34.5 H PTT Ratio 1.2 Sodium Potassium Chloride Carbon Dioxide Anion Gap BUN Creatinine Est Cr Clr Drug Dosing Est GFR ( Amer) Est GFR (Non-Af Amer) BUN/Creatinine Ratio Glucose Calcium Total Bilirubin AST ALT Alkaline Phosphatase Troponin I 2.480 H* Total Protein Albumin Globulin Albumin/Globulin Ratio Urine Color Urine Appearance Urine pH Ur Specific [place] Urine Protein Urine Glucose (UA) Urine Ketones Urine Blood Urine Nitrite Urine Bilirubin Urine Urobilinogen Ur Leukocyte Esterase Urine WBC (Auto) Urine RBC (Auto) U Hyaline Cast (Auto) U Epithel Cells (Auto) Urine Bacteria (Auto) COVID-19 Eval Order Hep Bs Antigen Neg Hep Bs Antibody Non-Immune Hep Bs Antibody, Quant < 3.10 L SARS-CoV-2, RNA, NAAT 01/05/20 01/05/20 01/05/20 23:09 Unknown Unknown WBC RBC Hgb Hct MCV MCH MCHC RDW Std Deviation RDW Coeff of Max Plt Count MPV Immature Gran % (Auto) Neut % (Auto) Lymph % (Auto) [place] % (Auto) Eos % (Auto) Baso % (Auto) Neut # (Auto) Lymph # (Auto) [place] # (Auto) Eos # (Auto) Baso # (Auto) Immature Gran # (Auto) APTT Cancelled PTT Ratio Cancelled Sodium Potassium Chloride Carbon Dioxide Anion Gap BUN Creatinine Est Cr Clr Drug Dosing Est GFR ( Amer) Est GFR (Non-Af Amer) BUN/Creatinine Ratio Glucose Calcium Total Bilirubin AST ALT Alkaline Phosphatase Troponin I Total Protein Albumin Globulin Albumin/Globulin Ratio Urine Color Urine Appearance Urine pH Ur Specific [place] Urine Protein Urine Glucose (UA) Urine Ketones Urine Blood Urine Nitrite Urine Bilirubin Urine Urobilinogen Ur Leukocyte Esterase Urine WBC (Auto) Urine RBC (Auto) U Hyaline Cast (Auto) U Epithel Cells (Auto) Urine Bacteria (Auto) COVID-19 Eval [facility] Hep Bs Antigen Hep Bs Antibody Hep Bs Antibody, Quant SARS-CoV-2, RNA, NAAT NEGATIVE 01/05/20 01/06/20 01/06/20 Unknown 00:30 02:25 WBC RBC Hgb Hct MCV MCH MCHC RDW Std Deviation RDW Coeff of Max Plt Count MPV Immature Gran % (Auto) Neut % (Auto) Lymph % (Auto) [place] % (Auto) Eos % (Auto) Baso % (Auto) Neut # (Auto) Lymph # (Auto) [place] # (Auto) Eos # (Auto) Baso # (Auto) Immature Gran # (Auto) APTT Cancelled Cancelled PTT Ratio Cancelled Cancelled Sodium Potassium Chloride Carbon Dioxide Anion Gap BUN Creatinine Est Cr Clr Drug Dosing Est GFR ( Amer) Est GFR (Non-Af Amer) BUN/Creatinine Ratio Glucose Calcium Total Bilirubin AST ALT Alkaline Phosphatase Troponin I Total Protein Albumin Globulin Albumin/Globulin Ratio Urine Color Yellow Urine Appearance Clear Urine pH 5.0 Ur Specific [place] 1.011 Urine Protein 1+ H Urine Glucose (UA) Negative Urine Ketones Negative Urine Blood Trace H Urine Nitrite Negative Urine Bilirubin Negative Urine Urobilinogen Negative Ur Leukocyte Esterase Negative Urine WBC (Auto) 0 Urine RBC (Auto) 0-4 U Hyaline Cast (Auto) 1-5 U Epithel Cells (Auto) 0-5 Urine Bacteria (Auto) Negative COVID-19 Eval Order Hep Bs Antigen Hep Bs Antibody Hep Bs Antibody, Quant SARS-CoV-2, RNA, NAAT 01/06/20 01/06/20 01/06/20 06:51 07:03 07:03 WBC 11.38 H RBC 2.71 L Hgb 8.8 L Hct 25.6 L MCV 94.5 MCH 32.5 MCHC Pending RDW Std Deviation 46.8 H RDW Coeff of Max 13.5 Plt Count 180 MPV 10.7 H Immature Gran % (Auto) 0.4 Neut % (Auto) 75.8 Lymph % (Auto) 14.4 [place] % (Auto) 7.3 Eos % (Auto) 1.8 Baso % (Auto) 0.3 Neut # (Auto) 8.63 H Lymph # (Auto) 1.64 Rabun # (Auto) 0.83 H Eos # (Auto) 0.20 Baso # (Auto) 0.03 Immature Gran # (Auto) 0.05 H APTT 87.0 H* PTT Ratio 3.1 Sodium 137 Potassium 3.6 Chloride 102 Carbon Dioxide 26 Anion Gap 8.0 BUN 34 H Creatinine 4.77 H* D Est Cr Clr Drug Dosing 8.5 Est GFR ( Amer) 9.3 Est GFR (Non-Af Amer) 8.0 BUN/Creatinine Ratio 7.0 L Glucose 96 Calcium 8.4 L Total Bilirubin 0.6 AST 22 ALT 11 L Alkaline Phosphatase 55 Troponin I Total Protein 6.4 Albumin 2.9 L Globulin 3.5 Albumin/Globulin Ratio 0.8 L Urine Color Urine Appearance Urine pH Ur Specific [place] Urine Protein Urine Glucose (UA) Urine Ketones Urine Blood Urine Nitrite Urine Bilirubin Urine Urobilinogen Ur Leukocyte Esterase Urine WBC (Auto) Urine RBC (Auto) U Hyaline Cast (Auto) U Epithel Cells (Auto) Urine Bacteria (Auto) COVID-19 Eval Order Hep Bs Antigen Hep Bs Antibody Hep Bs Antibody, Quant SARS-CoV-2, RNA, NAAT PG Care Time/CCT Total # of Minutes Spent Total Time Spent with Patient: Total time spent is greater than 50% in coordination of care (as documented) at patient's floor/unit and/or counseling patient: Coding Level of Care Code 20117 Subseq Hosp Care Lvl 3 Diagnoses CKD (chronic kidney disease) stage V requiring chronic dialysis N18.6; Z99.2 Pulmonary edema J81.0 Chronicity: acute Hypertension I15.0 Hypertension type: renovascular hypertension Anemia D64.9 (1) Pulmonary edema Chronicity: acute Qualified Code(s): J81.0 - Acute pulmonary edema (2) Hypertension Hypertension type: renovascular hypertension Qualified Code(s): I15.0 - Renovascular hypertension
[2020-01-06 09:10] LABS: Mean Corpuscular Hgb Conc 34.4 g/dL (32-36)
[2020-01-06] MEDS: ISOSORBIDE MONO EXTENDED REL 60 MG TABCR PO SCH (11:37)
--- NOTE | 2020-01-06 12:07 | Hospitalist Progress Note ---
Date of Service January 06, 2020 Assessment & Plan (1) Anemia: Adriana Arnett is an 79 year old woman with CAD, PAD, chronic renal insufficiency, bilateral renal artery stenosis, HTN, HLD, breast cancer in March 2015 s/p chemotherapy and radiation, and osteoarthritis here for shortness of breath and found to be fluid overloaded on chest XR in ED. Much improved after 2L fluid removed during hemodialysis yesterday. Shortness of breath -clinically fluid overloaded yesterday, greatly improved upon 2L ultrafiltrate removed yesterday -800mL fluid removed today -vascular recommends a permacath which later this week will replace her current temporary cath -stepped down to room air after a high of 15L yesterday on nonrebreather mask -rivera catheter still in place -strict I's/O's -daily weights ESRD -creatinine improved to 4.77 down from 5.33 yesterday -nuclear medicine renal scan on 12/30/2019 showed asymmetric renal function, 43% from right kidney and 57% from left kidney along with significant bilateral cortical atrophy. -longstanding hypertension, bilateral renal stenosis, CAD -with a history of CO2 renal angiogram and attempt at stent placement on 10/14/2019 which was not successful. Appears to have had an ischemic insult to the kidney during the procedure as her renal failure worsened sometime between 07/2019 and 11/2019 -HD yesterday removed 2L ultrafiltrate, plan for another 1L to be removed today -hypokalemia resolved, currently at 3.6 -renally dosing medications Elevate troponin -some ST depressions yesterday, since last ECG -history of CAD, troponin elevated to 0.4 patient feels asymptomatic, repeat troponin 2.11 at 06:35, repeat 2.48 at 13:13 yesterday -troponin is likely reading falsely high given patient's renal function but there are clear ECG changes -continue heparin drip per cardiology recommendation -restart aspirin/plavix per cardiology recommendation Acute blood loss anemia secondary to HD cath site bleeding -bleeding overnight from HD cath site noted -hemoglobin down to 8.8 from 11.0 yesterday -in the setting of CKD with recent epo administration -no dizziness, lightheadedness, chest pain, other symptoms -will repeat h/h this evening after planned HD and removal of 1L ultrafiltrate -CBC daily Peripheral arterial disease -arterial dopplers and LAYO's showed right leg with multisegmental SFA stenosis with dampened monophasic flow distally, PT occluded, INES occluded distally. Left leg with short mid SFA occlusion with thrombus like material, reconstitution distal SFA with diminished, monophasic flow. 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 -planned to perform lower extremity angiography with intervention on 12/12/19 but her preoperative labs revealed a creatinine of 4.76 and it was abandoned -will continue toprol, imdur, crestor Hypertension -continuing toprol, amlodipine, imdur AAA -3.9x3.8cm on today's CT, partially visualized -3.5cm on previous imaging -appreciate vascular recommendations Breast cancer -originally diagnosed June 2015, left breast cancer, infiltrating ductal carcinoma, stage I, ER positive/[place] positive, HER-2/mario positive, s/p chemotherapy and radiation -continue exemestane 25 mg daily FENGI: tolerating PO DVT prophylaxis: holding heparin drip due to HD cath site bleeding Code status: DNR/DNI Dispo: med/surg tele (2) Right renal artery stenosis: (3) Chronic kidney disease, stage V: (4) Abdominal aortic aneurysm: (5) Dyslipidemia: (6) Fibromyalgia: (7) Hypertension: (8) Peripheral neuropathy: (9) Renal artery stenosis: (10) PAD (peripheral artery disease): (11) Chronic osteoarthritis: (12) Arteriosclerotic cardiovascular disease (ASCVD): Admission and Anticipated Discharge Date Admission Date: January 05, 2020 Supervising Physician Co-Signing Physician Notes I personally examined the patient and verified all johnson points of history and exam, discussed case, and agree with decision making with Dr Carlson. feeling much better breathing oK. discussed plans overall moving forward, what to expect, etc. vitals noted nad heent nc at mmm breathing unlabored no accessory muscles good effort skin no rashes no pallor or icterus acute pulmonary edema causing acute respiratory failure w hypoxia- ESR D/nephrogenic likley as much as HFpEF - but w ESRD/failing diuretics - urgent HD needed - now improving. HD again today, ongoing initial run of HD then work towards outpt HD ongoing NSTEMI - likely severe demand ischemia from above superimposed on known CAD. stabilizing otherwise as above Subjective Per nursing, bleeding from HD catheter exit site overnight. Heparin drip being held. Ms. Arnett is otherwise feeling well and reports her breathing has substantially improved. She denies CP, SOB, palpitations, lightheadedness, dizziness, syncope, change in vision, confusion, or other new symptoms. Review of Systems Constitutional: no fever and no chills Respiratory: no cough and no dyspnea Cardiovascular: no chest pain, no palpitations and no syncope Gastrointestinal: no abdominal pain, no nausea and no vomiting Genitourinary: no dysuria and no urinary frequency Physical Exam Constitutional: no acute distress and not ill appearing Respiratory: normal respiratory effort; no respiratory distress, no labored breathing, does not use accessory muscles and no cough mild wheezing in the lower lung torres; breathing CTABL in all other torres Cardiovascular: Rate/Rhythm: regular rate and regular rhythm Heart Sounds: no murmur trace edema in lower extremities bilaterally Gastrointestinal (Abdomen): normal bowel sounds, soft, nontender, no hepatosplenomegaly Results & Data Results & Data ([facility]) Vital Signs (Past 12 Hours) Vital Signs Temp Pulse Pulse Pulse Resp BP BP 01/06/20 11:40 87 144/94 H 01/06/20 11:20 90 118/75 01/06/20 11:00 89 117/79 01/06/20 10:40 90 121/87 01/06/20 10:20 90 123/89 01/06/20 10:00 89 120/84 01/06/20 09:40 87 131/86 01/06/20 09:20 86 132/90 01/06/20 09:16 37.0 C 84 84 130/76 01/06/20 07:56 36.9 C 80 18 130/57 L 01/06/20 07:28 78 01/06/20 03:46 37.1 C 90 20 150/87 H 01/06/20 02:35 62 Pulse Ox 01/06/20 11:40 01/06/20 11:20 01/06/20 11:00 01/06/20 10:40 01/06/20 10:20 01/06/20 10:00 01/06/20 09:40 01/06/20 09:20 01/06/20 09:16 01/06/20 07:56 95 01/06/20 07:28 01/06/20 03:46 96 01/06/20 02:35 (1) Abdominal aortic aneurysm Presence of rupture: without rupture Qualified Code(s): I71.4 - Abdominal aortic aneurysm, without rupture (2) Hypertension Hypertension type: renovascular hypertension Qualified Code(s): I15.0 - Renovascular hypertension
--- NOTE | 2020-01-06 14:37 | Cardiology Progress Note ---
Date of Service January 06, 2020 Assessment & Plan (1) Non-ST elevation (NSTEMI) myocardial infarction: 2. Chronic renal insufficiency requiring urgent dialysis 3. Pulmonary edema 4. Severe multivessel coronary artery diseaseoccluded distal right, occluded distal circumflex, 90% focal stenosis in mid circumflex into OM1 5. Moderate mitral regurgitation 6. Hypertension 7. Bilateral renal artery stenosis 8. Lower extremity peripheral arterial disease 9. Anemia Dyspnea, oxygen requirement improved following second dialysis session today. No recurrent chest discomfort. Hemodynamically and electrically stable. Heparin infusion as able for 48 hours Continue DAPT with aspirin, clopidogrel Continue current Toprol-XL, Imdur, amlodipine. Continue statin. No plans for additional cardiac ischemic evaluation unless recurrent symptoms. We will follow Admission and Anticipated Discharge Date Admission Date: January 05, 2020 Subjective Patient was seen at dialysis just after completion of her session. She was feeling sleepy but said breathing was much improved. Denies any chest pain. Had some cramping during dialysis, they were able to remove 800 mL. Telemetry reviewedbrief episode of SVT otherwise unremarkable Review of Systems Review of Systems: All systems reviewed & are unremarkable except as noted in HPI & below Physical Exam Physical Exam: General: Comfortable, no acute distress Eyes: Sclerae anicteric, extraocular movements intact Lungs: Lungs clear anteriorly Cardiac: Regular rate and rhythm, 2 out of 6 holosystolic murmur at the apex Vascular: 2+ radial. Distal toes purple, capillary refill normal. Distal toes tender Abdomen: Soft, nontender, nondistended, positive bowel sounds. Extremities: no peripheral edema Neuro: Nonfocal Psych: Alert orient x3, normal affect and mood Results & Data ([facility]) Vital Signs (Past 12 Hours) Vital Signs Temp Pulse Pulse Pulse Resp BP BP 01/06/20 12:17 97.9 F 70 70 137/95 137/95 01/06/20 12:00 87 134/88 01/06/20 11:40 87 144/94 H 01/06/20 11:20 90 118/75 01/06/20 11:00 89 117/79 01/06/20 10:40 90 121/87 01/06/20 10:20 90 123/89 01/06/20 10:00 89 120/84 01/06/20 09:40 87 131/86 01/06/20 09:20 86 132/90 01/06/20 09:16 98.6 F 84 84 130/76 01/06/20 07:56 98.4 F 80 18 130/57 L 01/06/20 07:28 78 01/06/20 03:46 98.8 F 90 20 150/87 H 01/06/20 02:35 62 Pulse Ox 01/06/20 12:17 01/06/20 12:00 01/06/20 11:40 01/06/20 11:20 01/06/20 11:00 01/06/20 10:40 01/06/20 10:20 01/06/20 10:00 01/06/20 09:40 01/06/20 09:20 01/06/20 09:16 01/06/20 07:56 95 01/06/20 07:28 01/06/20 03:46 96 01/06/20 02:35 PG Care Time/CCT Total # of Minutes Spent Total Time Spent with Patient: Total time spent is greater than 50% in coordination of care (as documented) at patient's floor/unit and/or counseling p atient: Coding Level of Care Code 79438 Subseq Hosp Care Lvl 3 Diagnoses Non-ST elevation (NSTEMI) myocardial infarction I21.4
[2020-01-06 16:59] LABS: Hematocrit (blood only) 25.4 % (37-47); Hemoglobin 8.4 g/dL (12.0-16.0)
--- NOTE | 2020-01-06 17:59 | Billing Data ---
Date of Service January 06, 2020 Coding Level of Care Code 16202 Subseq Hosp Care Lvl 3
[2020-01-06] MEDS: METOPROLOL SUCC 50MG EXT REL TAB PO SCH (19:53)
[2020-01-06] MEDS: ROSUVASTATIN CALCIUM 10 MG TAB PO SCH (19:53)
[2020-01-06] MEDS: ASPIRIN 81 MG ECTAB PO SCH (19:53)
[2020-01-07 06:58] LABS: Hematocrit (blood only) 25.1 % (37-47); Hemoglobin 8.4 g/dL (12.0-16.0)
[2020-01-07] MEDS: HEPARIN SODIUM/DEXTROSE 25,000 UNITS/500 ML BAG IV SCH (07:01)
[2020-01-07 07:07] LABS: Partial Thromboplastin Ratio 1.4
[2020-01-07 07:30] LABS: BUN Creatinine Ratio 7.5 (10-20); Calcium 8.8 mg/dl (8.5-10.1); Creatinine Clr Calc Pharmacy 9.4 ml/min; Est GFR (African American) 10.9; Est GFR (Non-African American) 9.4; Potassium 3.5 mmol/L (3.5-5.1)
[2020-01-07] MEDS: CLOPIDOGREL BISULFATE 75 MG TAB PO SCH (08:18)
[2020-01-07] MEDS: GABAPENTIN 100 MG CAP PO SCH (08:18)
[2020-01-07] MEDS: amLODIPine BESYLATE 5 MG TAB PO SCH (08:18)
[2020-01-07] MEDS: CHOLECALCIFEROL 1,000 UNITS 25 MCG TAB PO SCH (08:18)
--- NOTE | 2020-01-07 10:39 | Nephrology Progress Note ---
Date of Service January 07, 2020 Assessment & Plan (1) CKD (chronic kidney disease) stage V requiring chronic dialysis: ESRD due to renovascular disease. Started HD via R femoral HD catheter 01/04 with second treatment yesterday. No complications wit HD. Volume status significantly improved. BP and volume status acceptable. Electrolytes controlled. Plan next treatment for tomorrow. Femoral catheter to be exchanged for permcath potentially tomorrow. Metabolic profile acceptable. Medications appropriately dosed for IHD. Case management consult to assist with outpatient dialysis for ESRD at [facility] under the care of Dr. Kaur. (2) Pulmonary edema: Improved. Volume status acceptable. Breathing improved. (3) Hypertension: BP and volume status are currently acceptable. (4) Anemia: Epogen 83645 unit provided last week. Additional 31708 units provided yesterday with 200 mg IV venofer. Recheck tomorrow AM. Admission and Anticipated Discharge Date Admission Date: January 05, 2020 Subjective No acute events overnight. Tolerated HD well yesterday with some mild intradialytic hypotension and cramping. Feels well this AM. Appetite significantly improved. Breathing comfortably. No bleeding. Review of Systems Review of Systems: All systems reviewed & are unremarkable except as noted in HPI & below Physical Exam Constitutional: well developed; no acute distress Eyes: + anicteric sclerae; no corneal abnormality ENMT: Mouth: no oral mucosal abnormality and oral mucous membranes not dry Neck: normal visual inspection and trachea midline Respiratory: normal respiratory effort; no respiratory distress Auscultation: lungs clear to auscultation bilaterally Cardiovascular: Rate/Rhythm: regular rate Heart Sounds: normal S1, normal S2 and + murmur Extremities: no edema R femoral HD catheter Musculoskeletal: Extremities: no cyanosis and no clubbing Skin: normal turgor; no lesions Neurologic: Motor/Sensory: no tremor and no asterixis Psychiatric: Orientation: alert and oriented x 3 Results & Data ([facility]) Vital Signs (Past 12 Hours) Vital Signs Temp Pulse Pulse Resp BP Pulse Ox 01/07/20 07:44 36.9 C 83 18 137/85 97 01/07/20 07:00 85 01/07/20 04:49 87 01/07/20 03:21 37 C 81 18 144/87 H 96 01/06/20 22:54 37.1 C 89 18 134/85 95 Laboratory Results Laboratory Results - last 24 hr 01/06/20 01/06/20 01/07/20 14:09 16:49 06:30 Hgb 8.4 L Hct 25.4 L APTT 38.0 H PTT Ratio 1.4 Sodium Potassium Chloride Carbon Dioxide Anion Gap BUN Creatinine Est Cr Clr Drug Dosing Est GFR ( Amer) Est GFR (Non-Af Amer) BUN/Creatinine Ratio Glucose Calcium Troponin I 0.945 H* 01/07/20 01/07/20 06:30 06:30 Hgb 8.4 L Hct 25.1 L APTT PTT Ratio Sodium 138 Potassium 3.5 Chloride 103 Carbon Dioxide 28 Anion Gap 7.0 BUN 31 H Creatinine 4.17 H D Est Cr Clr Drug Dosing 9.4 Est GFR ( Amer) 10.9 Est GFR (Non-Af Amer) 9.4 BUN/Creatinine Ratio 7.5 L Glucose 99 Calcium 8.8 Troponin I PG Care Time/CCT Total # of Minutes Spent Total Time Spent with Patient: Total time spent is greater than 50% in coordination of care (as documented) at patient's floor/unit and/or counseling patient: Coding Level of Care Code 06713 Subseq Hosp Care Lvl 3 Diagnoses CKD (chronic kidney disease) stage V requiring chronic dialysis N18.6; Z99.2 Pulmonary edema J81.0 Chronicity: acute Hypertension I15.0 Hypertension type: renovascular hypertension Anemia D64.9 (1) Pulmonary edema Chronicity: acute Qualified Code(s): J81.0 - Acute pulmonary edema (2) Hypertension Hypertension type: renovascular hypertension Qualified Code(s): I15.0 - Renovascular hypertension
--- NOTE | 2020-01-07 10:51 | Hospitalist Progress Note ---
Date of Service January 07, 2020 Assessment & Plan (1) Anemia: Adriana Arnett is an 79 year old woman with CAD, PAD, chronic renal insufficiency, bilateral renal artery stenosis, HTN, HLD, breast cancer in March 2015 s/p chemotherapy and radiation, and osteoarthritis here for shortness of breath and found to be fluid overloaded on chest XR in ED. Much improved after 2L fluid removed during hemodialysis yesterday. Shortness of breath -clinically fluid overloaded yesterday, greatly improved upon 2L ultrafiltrate removed yesterday -800mL fluid removed today -vascular recommends a permacath which later this week will replace her current temporary cath -stepped down to room air after a high of 15L yesterday on nonrebreather mask -rivera catheter still in place -strict I's/O's -daily weights ESRD -creatinine improved to 4.77 down from 5.33 yesterday -nuclear medicine renal scan on 12/30/2019 showed asymmetric renal function, 43% from right kidney and 57% from left kidney along with significant bilateral cortical atrophy. -longstanding hypertension, bilateral renal stenosis, CAD -with a history of CO2 renal angiogram and attempt at stent placement on 10/14/2019 which was not successful. Appears to have had an ischemic insult to the kidney during the procedure as her renal failure worsened sometime between 07/2019 and 11/2019 -HD yesterday removed 2L ultrafiltrate, plan for another 1L to be removed today -hypokalemia resolved, currently at 3.6 -renally dosing medications Elevate troponin -some ST depressions yesterday, since last ECG -history of CAD, troponin elevated to 0.4 patient feels asymptomatic, repeat troponin 2.11 at 06:35, repeat 2.48 at 13:13 yesterday -troponin is likely reading falsely high given patient's renal function but there are clear ECG changes -continue heparin drip per cardiology recommendation -restart aspirin/plavix per cardiology recommendation Acute blood loss anemia secondary to HD cath site bleeding -bleeding from HD cath site noted early AM on 01/06/2020, no bleeding since -hemoglobin at 8.4, down from 8.8 yesterday -in the setting of CKD with recent epo administration -no dizziness, lightheadedness, chest pain, other symptoms -CBC daily Peripheral arterial disease -arterial dopplers and LAYO's showed right leg with multisegmental SFA stenosis with dampened monophasic flow distally, PT occluded, INES occluded distally. Left leg with short mid SFA occlusion with thrombus like material, reconstitution distal SFA with diminished, monophasic flow. 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 with intervention on 12/12/19 but her preoperative labs revealed a creatinine of 4.76 and it was abandoned -will continue toprol, imdur, crestor Hypertension -continuing toprol, amlodipine, imdur AAA -3.9x3.8cm on today's CT, partially visualized -3.5cm on previous imaging -f/u outpatient Breast cancer -originally diagnosed June 2015, left breast cancer, infiltrating ductal carcinoma, stage I, [place] positive/[place] positive, HER-2/mario positive, s/p chemotherapy and radiation -continue exemestane 25 mg daily FENGI: tolerating PO DVT prophylaxis: holding heparin drip due to HD cath site bleeding Code status: DNR/DNI Dispo: med/surg tele (2) Right renal artery stenosis: (3) Chronic kidney disease, stage V: (4) Abdominal aortic aneurysm: (5) Dyslipidemia: (6) Fibromyalgia: (7) Hypertension: (8) Peripheral neuropathy: (9) Renal artery stenosis: (10) PAD (peripheral artery disease): (11) Chronic osteoarthritis: (12) Arteriosclerotic cardiovascular disease (ASCVD): Admission and Anticipated Discharge Date Admission Date: January 05, 2020 Supervising Physician Co-Signing Physician Notes I personally examined the patient and verified all johnson points of history and exam, discussed case, and agree with decision making with Dr Carlson. feels ok just tired. breathing OK vitals noted nad heent nc at mmm breathing unlabored no r/r/w no accessory muscles good effort skin no rashes no pallor or icterus acute pulmonary edema causing acute respiratory failure w hypoxia- ESRD/nephrogenic likley as much as HFpEF - but w ESRD/failing diuretics - urgent HD needed - now improving. workign towards outpt HD. needs better vascular access (should be tomorrow). NSTEMI - likely severe demand ischemia from above superimposed on known CAD. stabilized otherwise as above Subjective Patient had no acute events overnight. She was seen at the bedside this morning. She feels well and has no new complaints. She denies shortness of breath, chest pain, low appetite, swelling, or any other complaints. Review of Systems Constitutional: no fever and no chills Respiratory: no cough, no dyspnea and no wheezing Cardiovascular: no chest pain, no radiating jaw, neck or arm pain, no dyspnea, no palpitations and no syncope Gastrointestinal: no nausea, no vomiting, no constipation and no diarrhea/loose stools Genitourinary: no dysuria and no urinary frequency Physical Exam Constitutional: no acute distress and not ill appearing Respiratory: normal respiratory effort, lungs clear to auscultation Cardiovascular: Rate/Rhythm: regular rate and regular rhythm Heart Sounds: no murmur Gastrointestinal (Abdomen): normal bowel sounds, soft, nontender, no hepatosplenomegaly Results & Data Results & Data ([facility]) Vital Signs (Past 12 Hours) Vital Signs Temp Pulse Pulse Resp BP Pulse Ox 01/07/20 07:44 36.9 C 83 18 137/85 97 01/07/20 07:00 85 01/07/20 04:49 87 01/07/20 03:21 37 C 81 18 144/87 H 96 01/06/20 22:54 37.1 C 89 18 134/85 95 Resident Activity Tracking Resident Involvement: Resident Care Provided Care Provided: Adult Hospital Medicine (1) Abdominal aortic aneurysm Presence of rupture: without rupture Qualified Code(s): I71.4 - Abdominal aortic aneurysm, without rupture (2) Hypertension Hypertension type: renovascular hypertension Qualified Code(s): I15.0 - Renovascular hypertension
[2020-01-07] MEDS: NON-FORMULARY PATIENT'S OWN MED PO SCH (12:18)
[2020-01-07] MEDS: ISOSORBIDE MONO EXTENDED REL 60 MG TABCR PO SCH (12:18)
--- NOTE | 2020-01-07 14:08 | Surgery Progress Note ---
Date of Service January 07, 2020 Assessment & Plan (1) CKD (chronic kidney disease) stage V requiring chronic dialysis: We will plan on placing a right internal jugular vein PermCath tomorrow afternoon. I have discussed the risks options and benefits of the procedure with the patient. The patient understands the risks options and benefits and agrees to the procedure. Admission and Anticipated Discharge Date Admission Date: January 05, 2020 Subjective Patient feeling much better at this time. She is not short of breath. Physical Exam Respiratory: normal respiratory effort; no respiratory distress Auscultation: lungs clear to auscultation bilaterally Skin: Temporary dialysis catheter is present in the right groin. Results & Data ([facility]) Vital Signs (Past 12 Hours) Vital Signs Temp Pulse Pulse Resp BP Pulse Ox 01/07/20 11:19 36.9 C 87 18 130/82 95 01/07/20 07:44 36.9 C 83 18 137/85 97 01/07/20 07:00 85 01/07/20 04:49 87 01/07/20 03:21 37 C 81 18 144/87 H 96
--- NOTE | 2020-01-07 16:24 | Billing Data ---
Date of Service January 07, 2020 Coding Level of Care Code 39170 Subseq Hosp Care Lvl 3
[2020-01-07] MEDS: PANTOprazole 40 MG TAB PO PRN (17:30)
[2020-01-07] MEDS: METOPROLOL SUCC 50MG EXT REL TAB PO SCH (20:23)
[2020-01-07] MEDS: ROSUVASTATIN CALCIUM 10 MG TAB PO SCH (20:23)
[2020-01-07] MEDS: ASPIRIN 81 MG ECTAB PO SCH (20:24)
[2020-01-08 06:25] LABS: Basophils # (auto) 0.03 K/uL (0-0.2); Basophils % (auto) 0.3 %; Eosinophils # (auto) 0.68 K/uL (0-0.5); Eosinophils % (auto) 6.4 %; Hematocrit (blood only) 21.9 % (37-47); Hemoglobin 7.2 g/dL (12.0-16.0); Immature Granulocytes # (auto) 0.06 K/uL (0.00-0.02); Immature Granulocytes % (auto) 0.6 %; Lymphocytes % (auto) 19.9 %; Mean Corpuscular Hemoglobin 31.3 pg (25-34); Mean Corpuscular Hgb Conc 32.9 g/dL (32-36); Mean Corpuscular Volume 95.2 fL (80-100); Mean Platelet Volume 10.4 fL (7.4-10.4); Monocytes # (auto) 1.07 K/uL (0.11-0.59); Monocytes % (auto) 10.1 %; Neutrophils # (auto) 6.61 K/uL (1.4-6.5); Neutrophils % (auto) 62.7 %; Nucleated RBC % (auto) 0.9 %; Platelet Count 250 K/uL (130-400); RDW Coefficient of Variation 13.8 % (11.5-14.5); RDW Standard Deviation 46.9 fL (36.4-46.3); White Blood Count 10.55 K/uL (4.8-10.8)
[2020-01-08 06:34] LABS: Partial Thromboplastin Ratio 1.1
[2020-01-08 06:59] LABS: Polychromasia 1+
[2020-01-08 07:22] LABS: BUN Creatinine Ratio 9.4 (10-20); Calcium 8.1 mg/dl (8.5-10.1); Creatinine Clr Calc Pharmacy 7.5 ml/min; Est GFR (African American) 8.2; Est GFR (Non-African American) 7.1; Potassium 3.5 mmol/L (3.5-5.1)
[2020-01-08] MEDS ORDERED: IRON SUCROSE 100 MG in SYRINGE 0 ML IV ONE (10:00)
--- NOTE | 2020-01-08 10:40 | History & Physical Bridge Note ---
Date of Service January 08, 2020 History & Physical Bridge Note Patient for insertion of permcath today. I have discussed the risks options and benefits of the procedure with the patient. The patient understands the risks options and benefits and agrees to the procedure. I have examined the patient, reviewed the History & Physical and in the interval since the performance of the History & Physical I have noted the following changes of clinical significance: no changes noted
--- NOTE | 2020-01-08 12:02 | Nephrology Progress Note ---
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 Started HD via R femoral HD catheter 01/04. Today is Adriana's 3rd dialysis treatment. No complications wit HD. Volume status significantly improved. BP and volume status acceptable. Electrolytes controlled. UF goal 0.5-1 L as tolerated. She remains non-oliguric. Femoral catheter to be exchanged for IJ permcath today. Metabolic profile acceptable. Medications appropriately dosed for IHD. Case management consult to assist with outpatient dialysis for ESRD at [facility] under the care of Dr. Kaur. (2) Pulmonary edema: Improved. Volume status acceptable. Breathing improved. (3) Hypertension: BP and volume status are currently acceptable. (4) Anemia: Epogen 45503 unit provided last Sunday. Additional 16054 units provided 01/06/20 with 200 mg IV venofer. Venofer 100 mg provided with HD today. Admission and Anticipated Discharge Date Admission Date: January 05, 2020 Subjective No acute events overnight. Adriana feels well today. She is breathing comfortably. She was seen and evaluated before and during hemodialysis. She is tolerating dialysis well. No additional bleeding from catheter site. No fevers or chills. Review of Systems Review of Systems: All systems reviewed & are unremarkable except as noted in HPI & below Physical Exam Constitutional: well developed; no acute distress Eyes: + anicteric sclerae; no corneal abnormality ENMT: Mouth: no oral mucosal abnormality and oral mucous membranes not dry Neck: normal visual inspection and trachea midline Respiratory: normal respiratory effort; no respiratory distress Auscultation: lungs clear to auscultation bilaterally Cardiovascular: Rate/Rhythm: regular rate Heart Sounds: normal S1, normal S2 and + murmur Extremities: no edema Musculoskeletal: Extremities: no cyanosis and no clubbing Skin: normal turgor; no lesions Neurologic: Motor/Sensory: no tremor and no asterixis Psychiatric: Orientation: alert and oriented x 3 Results & Data ([facility]) Vital Signs (Past 12 Hours) Vital Signs Temp Pulse Pulse Pulse Resp BP BP 01/08/20 11:40 90 150/88 H 01/08/20 11:20 93 H 136/83 01/08/20 11:00 91 H 130/81 01/08/20 10:40 91 H 125/81 01/08/20 10:20 86 131/82 01/08/20 10:00 79 140/79 01/08/20 09:40 79 138/82 01/08/20 09:29 37.2 C 82 82 137/84 01/08/20 08:00 37.2 C 76 20 119/64 01/08/20 07:38 83 01/08/20 07:00 37.2 C 86 16 122/74 01/08/20 04:07 36.9 C 84 19 132/75 01/08/20 02:39 86 Pulse Ox 01/08/20 11:40 01/08/20 11:20 01/08/20 11:00 01/08/20 10:40 01/08/20 10:20 01/08/20 10:00 01/08/20 09:40 01/08/20 09:29 01/08/20 08:00 95 01/08/20 07:38 01/08/20 07:00 96 01/08/20 04:07 96 01/08/20 02:39 Laboratory Results Laboratory Results - last 24 hr 01/08/20 01/08/20 01/08/20 05:31 05:31 05:31 WBC 10.55 RBC 2.30 L Hgb 7.2 L Hct 21.9 L MCV 95.2 MCH 31.3 MCHC 32.9 RDW Std Deviation 46.9 H RDW Coeff of Max 13.8 Plt Count 250 MPV 10.4 Immature Gran % (Auto) 0.6 Neut % (Auto) 62.7 Lymph % (Auto) 19.9 [place] % (Auto) 10.1 Eos % (Auto) 6.4 Baso % (Auto) 0.3 Neut # (Auto) 6.61 H Lymph # (Auto) 2.10 [place] # (Auto) 1.07 H Eos # (Auto) 0.68 H Baso # (Auto) 0.03 Immature Gran # (Auto) 0.06 H Absolute Nucleated RBC 0.10 H Nucleated RBC % (auto) 0.9 Polychromasia 1+ APTT 32.0 H PTT Ratio 1.1 Sodium 139 Potassium 3.5 Chloride 103 Carbon Dioxide 27 Anion Gap 9.0 BUN 50 H D Creatinine 5.25 H* D Est Cr Clr Drug Dosing 7.5 Est GFR ( Amer) 8.2 Est GFR (Non-Af Amer) 7.1 BUN/Creatinine Ratio 9.4 L Glucose 105 H Calcium 8.1 L PG Care Time/CCT Total # of Minutes Spent Total Time Spent with Patient: Total time spent is greater than 50% in coordination of care (as documented) at patient's floor/unit and/or counseling patient: Coding Level of Care Code 62815 Subseq Hosp Care Lvl 3 Diagnoses CKD (chronic kidney disease) stage V requiring chronic dialysis N18.6; Z99.2 Pulmonary edema J81.0 Chronicity: acute Hypertension I15.0 Hypertension type: renovascular hypertension Anemia D64.9 (1) Pulmonary edema Chronicity: acute Qualified Code(s): J81.0 - Acute pulmonary edema (2) Hypertension Hypertension type: renovascular hypertension Qualified Code(s): I15.0 - Renovascular hypertension
[2020-01-08] MEDS: CHOLECALCIFEROL 1,000 UNITS 25 MCG TAB PO SCH (12:49)
[2020-01-08] MEDS: CLOPIDOGREL BISULFATE 75 MG TAB PO SCH (12:49)
[2020-01-08] MEDS ORDERED: Nursing to Pharmacy Communication SCH (13:00)
[2020-01-08] MEDS ORDERED: ceFAZolin 1000MG 1,000 MG/7.5 ML SYR IV ONE (13:00)
[2020-01-08] MEDS: GABAPENTIN 100 MG CAP PO SCH ×2 (13:13→21:30)
[2020-01-08] MEDS ORDERED: HEPARIN SOD (PORCINE) 5,000 UNITS/ML VIAL ONE (13:38)
[2020-01-08] MEDS ORDERED: LIDOCAINE HCL 1% 20 ML VIAL ONE (13:38)
--- NOTE | 2020-01-08 13:57 | Pre Anesthesia Assessment ---
Date of Service January 08, 2020 Pre Sedation Assessment Vital Signs Temp Pulse Pulse Pulse Resp BP BP 01/08/20 13:34 36.8 C 91 H 91 H 18 158/93 H 01/08/20 12:30 37.0 C 91 H 91 H 160/87 H 160/87 H 01/08/20 12:20 42 L 94/69 L 01/08/20 12:00 90 130/89 01/08/20 11:40 90 150/88 H 01/08/20 11:20 93 H 136/83 01/08/20 11:00 91 H 130/81 01/08/20 10:40 91 H 125/81 01/08/20 10:20 86 131/82 01/08/20 10:00 79 140/79 01/08/20 09:40 79 138/82 01/08/20 09:29 37.2 C 82 82 137/84 01/08/20 08:00 37.2 C 76 20 119/64 01/08/20 07:38 83 01/08/20 07:00 37.2 C 86 16 122/74 01/08/20 04:07 36.9 C 84 19 132/75 01/08/20 02:39 86 01/07/20 23:19 37.3 C 88 19 132/73 01/07/20 20:14 37.5 C 01/07/20 19:15 37.5 C 90 18 139/76 01/07/20 15:48 37.1 C 90 18 123/72 01/07/20 15:17 84 Pulse Ox 01/08/20 13:34 99 01/08/20 12:30 01/08/20 12:20 01/08/20 12:00 01/08/20 11:40 01/08/20 11:20 01/08/20 11:00 01/08/20 10:40 01/08/20 10:20 01/08/20 10:00 01/08/20 09:40 01/08/20 09:29 01/08/20 08:00 95 01/08/20 07:38 01/08/20 07:00 96 01/08/20 04:07 96 01/08/20 02:39 01/07/20 23:19 96 01/07/20 20:14 10/14/20 19:15 97 01/07/20 15:48 96 01/07/20 15:17 Cardiovascular RRR, no murmur, no edema Respiratory normal respiratory effort, lungs clear to auscultation Pre-Sedation Airway Assessment Smoking Status: Never smoker Hx Sleep Apnea: No Short, Thick Neck: No Thyromental Distance: > or= 3.5 Finger Breadths Oral Cavity: + WNL Mallampati Class: II ASA: ASA3 NPO Status Date of Last Intake of Fluids: 01/07/20 Time of Last Intake of Fluids: 18:00 Date of Last Intake of Solid Food: 01/07/20 Time of Last Intake of Solid Foods: 18:00 Procedure Planning Contraindications for Sedation: none Current Medications Reviewed: Yes Notes The planned sedation has been discussed with the patient. Informed Consent was obtained. I have identified the patient, determined the appropriateness of sedation and have assessed the patient immediately prior to the procedure. All medicine(s) and interventions are by my order.
[2020-01-08] MEDS ORDERED: MIDAZOLAM HCL 1 MG/ML 2ML VIAL ONE (14:13)
[2020-01-08] MEDS ORDERED: fentaNYL citrate 100 MCG/2 ML VIAL ONE (14:13)
--- NOTE | 2020-01-08 14:45 | Operative Report ---
Post Operative Report Pre & Post Diagnosis Operation Date: 01/05/20 11:30 Pre-Op Diagnosis: Acute Kidney Injury Post-Op Diagnosis: Acute Kidney Injury Operation Date: 01/08/20 13:50 Pre-Op Diagnosis: Acute Kidney Injury Post-Op Diagnosis: Acute Kidney Injury I identified the patient and participated in the time-out.: Yes Procedure Operation Date: 01/05/20 11:30 Actual Procedures p Temporary Perm Catheter Insertion, Right Femoral Vein Approach, Fluroscopy for Positioning. (Right) - Prudencio Diaz MD Operation Date: 01/08/20 13:50 Actual Procedures p Insertion of Perm Catheter, Right Internal Jugular Approach, Ultrasound Localization of Right Internal Jugular Vein, Fluoroscopy for Positioning; removal of temporary femoral dialysis catheter; moderate Sedation From 1426 to 1450(Right) - Prudencio Diaz MD Surgeon Prudencio Diaz MD [employer] None Estimated Blood Loss 5 Findings Consistent with Post-Op Diagnosis Specimens None Anesthesia Type RN Sedation Complications none Disposition Accompanied Patient To Recovery: No Disposition: Recovery Room Indications This is an 79-year-old female who had a temporary dialysis catheter placed due to severe pulmonary overload. She is underwent dialysis treatment since. Respiratory status is markedly improved. She is now here for PermCath placement for her acute kidney injury. I have discussed the risks options and benefits of the procedure with the patient. The patient understands the risks options and benefits and agrees to the procedure. Description of Procedure Patient was taken to the angio suite and placed in the supine position. The left side of the neck and chest wall were prepped and draped in a sterile manner. The patient was identified and a timeout performed. Local anesthesia was then administered to the appropriate areas of the neck and chest wall. Ultrasound was then used to locate the left internal jugular vein. The vein compressed easily, had no filing defects, and was patent. The vein was then punctured under direct ultrasound imaging. A guidewire was then passed centrally under fluoroscopic imaging. A stab wound was then made in the anterior chest wall and a 19 cm permcath was passed from the stab wound on the chest wall to the puncture site on the neck. The puncture site was then dilated till the 14Fr peel away sheath was inserted. The permcath was then inserted through the sheath to a central position in the distal superior vena cava. The peel away sheath was then removed. The catheter was then sutured in place using nylon sutures. The puncture was then closed using a 4-0 Vicryl subcuticular suture. Dermabond was used for a dressing on the puncture site. Both ports aspirated and flushed easily and were then packed with heparin. A sterile dressing was applied to the catheter. The patient left the operation room in satisfactory condition and tolerated the procedure well. All needle and sponge counts were correct at the end of the procedure. I attest to the content of the Intraoperative Record and any orders documented therein. Any exceptions are noted below.
--- NOTE | 2020-01-08 14:53 | Post Anesthesia Assessment ---
Date of Service January 08, 2020 Post Sedation Assessment Vital Signs Temp Pulse Pulse Pulse Resp BP BP 01/08/20 14:50 84 14 01/08/20 14:45 86 14 01/08/20 14:41 87 14 01/08/20 14:36 86 14 01/08/20 14:31 85 14 01/08/20 14:26 89 14 01/08/20 14:16 90 14 01/08/20 13:34 36.8 C 91 H 91 H 18 158/93 H 01/08/20 12:30 37.0 C 91 H 91 H 160/87 H 160/87 H 01/08/20 12:20 42 L 94/69 L 01/08/20 12:00 90 130/89 01/08/20 11:40 90 150/88 H 01/08/20 11:20 93 H 136/83 01/08/20 11:00 91 H 130/81 01/08/20 10:40 91 H 125/81 01/08/20 10:20 86 131/82 01/08/20 10:00 79 140/79 01/08/20 09:40 79 138/82 01/08/20 09:29 37.2 C 82 82 137/84 01/08/20 08:00 37.2 C 76 20 119/64 01/08/20 07:38 83 01/08/20 07:00 37.2 C 86 16 122/74 01/08/20 04:07 36.9 C 84 19 132/75 01/08/20 02:39 86 01/07/20 23:19 37.3 C 88 19 132/73 01/07/20 20:14 37.5 C 01/07/20 19:15 37.5 C 90 18 139/76 01/07/20 15:48 37.1 C 90 18 123/72 01/07/20 15:17 84 BP Pulse Ox 01/08/20 14:50 169/91 H 100 01/08/20 14:45 158/92 H 100 01/08/20 14:41 147/90 H 100 01/08/20 14:36 152/91 H 99 01/08/20 14:31 160/99 H 99 01/08/20 14:26 164/98 H 99 01/08/20 14:16 150/96 H 99 01/08/20 13:34 99 01/08/20 12:30 01/08/20 12:20 01/08/20 12:00 01/08/20 11:40 01/08/20 11:20 01/08/20 11:00 01/08/20 10:40 01/08/20 10:20 01/08/20 10:00 01/08/20 09:40 01/08/20 09:29 01/08/20 08:00 95 01/08/20 07:38 01/08/20 07:00 96 01/08/20 04:07 96 01/08/20 02:39 01/07/20 23:19 96 01/07/20 20:14 01/07/20 19:15 97 01/07/20 15:48 96 01/07/20 15:17 Recovery Score Activity: Moves 4 extremities Respiration: Deep Breath/Cough Circulation: +/-20% PreAnes Value Consciousness: Fully Awake Oxygen Saturation: O2 needed for >90% Post Anesthesia Score: 9 Discharge Sedation Level of Care: Fast Track Phase II Post Sedation Plan On clinical assessment, the patient appears to have tolerated the sedation without complications. Patient is recovering as anticipated. Patient will continue to be monitored by nursing and may be discharged when sed ation discharge criteria are met per below protocol. Upon Completions of procedure up to 15 minutes continue every 5 minute vital signs and the P.A.R. score; then discharge to a Phase I or Fast Track to Phase II per the following guidelines: * Discharge Patient to appropriate Phase II area if PAR is 8 or greater or return to pre- procedure baseline. The post - procedure orders will be as directed. * If PAR score is less than 8 or not return to pre-procedure baseline then patient will follow Phase I monitoring till PAR is reached for Phase II. The Phase I may be done in procedure room or may call to secure a Phase I area. * If naloxone or flumazenil are used for reversal, hold in Phase I for continued monitoring from when last reversal dose was given for a minimum of 60 minutes or longer pending the nurse and/or physician discretion of patient condition before discharge to Phase II. Please call the Sedation Physician to re-evaluate and complete post-note for discharge to Phase II area. Do NOT discharge from procedure sedation or Phase 1 until post- sedation evaluation note is complete by procedure /sedation MD Sedation Discharge Instructions to be given to the patient at discharge to home.
[2020-01-08] MEDS: amLODIPine BESYLATE 5 MG TAB PO SCH (15:56)
[2020-01-08] MEDS: ISOSORBIDE MONO EXTENDED REL 60 MG TABCR PO SCH (16:17)
--- NOTE | 2020-01-08 16:21 | Hospitalist Progress Note ---
Date of Service January 08, 2020 Assessment & Plan (1) Anemia: Adriana Arnett is an 79 year old woman with CAD, PAD, chronic renal insufficiency, bilateral renal artery stenosis, HTN, HLD, breast cancer in March 2015 s/p chemotherapy and radiation, and osteoarthritis here for shortness of breath and found to be fluid overloaded on chest XR in ED. Much improved after 2L fluid removed during hemodialysis yesterday. Shortness of breath -clinically fluid overloaded yesterday, greatly improved upon 2L ultrafiltrate removed yesterday -800mL fluid removed today -vascular recommends a permacath which later this week will replace her current temporary cath -stepped down to room air after a high of 15L yesterday on nonrebreather mask -rivera catheter still in place -strict I's/O's -daily weights ESRD -creatinine improved to 4.77 down from 5.33 yesterday -nuclear medicine renal scan on 12/30/2019 showed asymmetric renal function, 43% from right kidney and 57% from left kidney along with significant bilateral cortical atrophy. -longstanding hypertension, bilateral renal stenosis, CAD -with a history of CO2 renal angiogram and attempt at stent placement on 10/14/2019 which was not successful. Appears to have had an ischemic insult to the kidney during the procedure as her renal failure worsened sometime between 07/2019 and 11/2019 -HD yesterday removed 2L ultrafiltrate, plan for another 1L to be removed today -hypokalemia resolved, currently at 3.6 -renally dosing medications Elevate troponin -some ST depressions yesterday, since last ECG -history of CAD, troponin elevated to 0.4 patient feels asymptomatic, repeat troponin 2.11 at 06:35, repeat 2.48 at 13:13 yesterday -troponin is likely reading falsely high given patient's renal function but there are clear ECG changes -continue heparin drip per cardiology recommendation -restart aspirin/plavix per cardiology recommendation Acute blood loss anemia secondary to HD cath site bleeding -bleeding from HD cath site noted early AM on 01/06/2020, no bleeding since -hemoglobin at 8.4, down from 8.8 yesterday -in the setting of CKD with recent epo administration -no dizziness, lightheadedness, chest pain, other symptoms -CBC daily Peripheral arterial disease -arterial dopplers and LAYO's showed right leg with multisegmental SFA stenosis with dampened monophasic flow distally, PT occluded, INES occluded distally. Left leg with short mid SFA occlusion with thrombus like material, reconstitution distal SFA with diminished, monophasic flow. INES, peroneal patent, occluded distal [employer] -planned to perform lower extremity angiography with intervention on 12/12/19 but her preoperative labs revealed a creatinine of 4.76 and it was abandoned -will continue toprol, imdur, crestor Hypertension -continuing toprol, amlodipine, imdur AAA -3.9x3.8cm on today's CT, partially visualized -3.5cm on previous imaging -f/u outpatient Breast cancer -originally diagnosed June 2015, left breast cancer, infiltrating ductal carcinoma, stage I, ER positive/ND positive, HER-2/mario positive, s/p chemotherapy and radiation -continue exemestane 25 mg daily FENGI: tolerating PO DVT prophylaxis: holding heparin drip due to HD cath site bleeding Code status: DNR/DNI Dispo: med/surg tele (2) Right renal artery stenosis: (3) Chronic kidney disease, stage V: (4) Abdominal aortic aneurysm: (5) Dyslipidemia: (6) Fibromyalgia: (7) Hypertension: (8) Peripheral neuropathy: (9) Renal artery stenosis: (10) PAD (peripheral artery disease): (11) Chronic osteoarthritis: (12) Arteriosclerotic cardiovascular disease (ASCVD): Admission and Anticipated Discharge Date Admission Date: January 05, 2020 Supervising Physician Co-Signing Physician Notes I personally examined the patient and verified all johnson points of history and exam, discussed case, and agree with decision making with Dr Carlson. feeling tired post op and wants to rest. vitals noted nad heent nc at mmm breathing unlabored no r/r/w no accessory muscles good effort skin no rashes no pallor or icterus acute pulmonary edema causing acute respiratory failure w hypoxia- ESRD/nephrogenic likely as much as HFpEF - but w ESRD/failing diuretics - urgent HD needed - now improving. working towards outpt HD. now has better vascular access NSTEMI - likely severe demand ischemia from above superimposed on known CAD. stabilized otherwise as above Subjective Patient had no acute events overnight. She was seen at the bedside this morning. She feels well and has no new complaints. She denies shortness of breath, chest pain, low appetite, swelling, or any other complaints. Ms. Arnett received her permaport this afternoon and is now recovering from the procedure. Review of Systems Constitutional: no fever and no chills Respiratory: no cough and no dyspnea Cardiovascular: no chest pain, no radiating jaw, neck or arm pain and no syncope Gastrointestinal: no nausea and no vomiting Genitourinary: no dysuria and no urinary frequency Physical Exam Constitutional: no acute distress and not ill appearing Respiratory: normal respiratory effort, lungs clear to auscultation normal respiratory effort; no respiratory distress, no labored breathing, does not use accessory muscles and no cough Auscultation: + crackles and + rales; no wheezes Cardiovascular: RRR, no murmur, no edema Rate/Rhythm: regular rate and regular rhythm Heart Sounds: no murmur Gastrointestinal (Abdomen): normal bowel sounds, soft, nontender, no hepatosplenomegaly Results & Data Results & [facility]) Vital Signs (Past 12 Hours) Vital Signs Temp Pulse Pulse Pulse Resp BP BP 01/08/20 16:00 36.7 C 89 18 01/08/20 15:45 37.0 C 89 18 01/08/20 15:38 87 01/08/20 15:30 37.1 C 89 18 01/08/20 15:19 36.8 C 89 20 01/08/20 15:00 36.8 C 89 22 01/08/20 14:50 84 14 01/08/20 14:45 86 14 01/08/20 14:41 87 14 01/08/20 14:36 86 14 01/08/20 14:31 85 14 01/08/20 14:26 89 14 01/08/20 14:16 90 14 01/08/20 13:34 36.8 C 91 H 91 H 18 158/93 H 01/08/20 12:30 37.0 C 91 H 91 H 160/87 H 160/87 H 01/08/20 12:20 42 L 94/69 L 01/08/20 12:00 90 130/89 01/08/20 11:40 90 150/88 H 01/08/20 11:20 93 H 136/83 01/08/20 11:00 91 H 130/81 01/08/20 10:40 91 H 125/81 01/08/20 10:20 86 131/82 01/08/20 10:00 79 140/79 01/08/20 09:40 79 138/82 01/08/20 09:29 37.2 C 82 82 137/84 01/08/20 08:00 37.2 C 76 20 119/64 01/08/20 07:38 83 01/08/20 07:00 37.2 C 86 16 122/74 BP Pulse Ox 01/08/20 16:00 164/90 H 99 01/08/20 15:45 157/90 H 99 01/08/20 15:38 01/08/20 15:30 143/80 H 99 01/08/20 15:19 166/94 H 99 01/08/20 15:00 164/89 H 98 01/08/20 14:50 169/91 H 100 01/08/20 14:45 158/92 H 100 01/08/20 14:41 147/90 H 100 01/08/20 14:36 152/91 H 99 01/08/20 14:31 160/99 H 99 01/08/20 14:26 164/98 H 99 01/08/20 14:16 150/96 H 99 01/08/20 13:34 99 01/08/20 12:30 01/08/20 12:20 01/08/20 12:00 01/08/20 11:40 01/08/20 11:20 01/08/20 11:00 01/08/20 10:40 01/08/20 10:20 01/08/20 10:00 01/08/20 09:40 01/08/20 09:29 01/08/20 08:00 95 01/08/20 07:38 01/08/20 07:00 96 Resident Activity Tracking Resident Involvement: Resident Care Provided Care Provided: Adult Hospital Medicine (1) Abdominal aortic aneurysm Presence of rupture: without rupture Qualified Code(s): I71.4 - Abdominal aortic aneurysm, without rupture (2) Hypertension Hypertension type: renovascular hypertension Qualified Code(s): I15.0 - Renovascular hypertension
--- NOTE | 2020-01-08 17:19 | Billing Data ---
Date of Service January 08, 2020 Coding Level of Care Code 40955 Subseq Hosp Care Lvl 2
[2020-01-08] MEDS: NON-FORMULARY PATIENT'S OWN MED PO SCH (17:22)
[2020-01-08] MEDS: HEPARIN SODIUM/DEXTROSE 25,000 UNITS/500 ML BAG IV SCH (19:09)
[2020-01-08] MEDS: ROSUVASTATIN CALCIUM 10 MG TAB PO SCH (21:29)
[2020-01-08] MEDS: ASPIRIN 81 MG ECTAB PO SCH (21:30)
[2020-01-08] MEDS: METOPROLOL SUCC 50MG EXT REL TAB PO SCH (21:32)
[2020-01-08] MEDS: traMADol HCL 50 MG TABLET PO PRN (21:32)
[2020-01-09 06:27] LABS: Partial Thromboplastin Ratio 1.1; Partial Thromboplastin Time 29.4 Seconds (21.0-31.0)
[2020-01-09 07:44] LABS: BUN Creatinine Ratio 7.4 (10-20); Calcium 8.7 mg/dl (8.5-10.1); Creatinine Clr Calc Pharmacy 9.5 ml/min; Est GFR (African American) 11.8; Est GFR (Non-African American) 10.2; Potassium 3.6 mmol/L (3.5-5.1)
[2020-01-09 07:48] LABS: Basophils # (auto) 0.04 K/uL (0-0.2); Basophils % (auto) 0.5 %; Eosinophils # (auto) 0.77 K/uL (0-0.5); Hematocrit (blood only) 23.8 % (37-47); Hemoglobin 7.7 g/dL (12.0-16.0); Immature Granulocytes # (auto) 0.05 K/uL (0.00-0.02); Immature Granulocytes % (auto) 0.6 %; Lymphocytes # (auto) 1.95 K/uL (1.2-3.4); Lymphocytes % (auto) 22.9 %; Mean Corpuscular Hemoglobin 31.6 pg (25-34); Mean Corpuscular Hgb Conc 32.4 g/dL (32-36); Mean Corpuscular Volume 97.5 fL (80-100); Monocytes # (auto) 1.18 K/uL (0.11-0.59); Monocytes % (auto) 13.8 %; Neutrophils # (auto) 4.54 K/uL (1.4-6.5); Neutrophils % (auto) 53.2 %; Nucleated RBC % (auto) 1.1 %; Platelet Count 245 K/uL (130-400); RDW Standard Deviation 48.4 fL (36.4-46.3); Red Blood Count 2.44 M/uL (4.2-5.4); White Blood Count 8.53 K/uL (4.8-10.8)
[2020-01-09] MEDS: CHOLECALCIFEROL 1,000 UNITS 25 MCG TAB PO SCH (09:20)
[2020-01-09] MEDS: amLODIPine BESYLATE 5 MG TAB PO SCH (09:21)
[2020-01-09] MEDS: CLOPIDOGREL BISULFATE 75 MG TAB PO SCH (09:21)
--- NOTE | 2020-01-09 09:28 | Hospitalist Progress Note ---
Date of Service January 09, 2020 Assessment & Plan (1) Anemia: Adriana Arnett is an 79 year old woman with CAD, PAD, chronic renal insufficiency, bilateral renal artery stenosis, HTN, HLD, breast cancer in March 2015 s/p chemotherapy and radiation, and osteoarthritis here for shortness of breath and found to be fluid overloaded on chest XR in ED. Much improved after 2L fluid removed during hemodialysis yesterday. Shortness of breath -clinically fluid overloaded yesterday, greatly improved upon 2L ultrafiltrate removed sunday, 800mL sunday -permacath placed yesterday (01/08/2020) -stepped down to room air after a high of 15L yesterday on nonrebreather mask -rivera catheter still in place -strict I's/O's -daily weights ESRD -nuclear medicine renal scan on 12/30/2019 showed asymmetric renal function, 43% from right kidney and 57% from left kidney along with significant bilateral cortical atrophy. -longstanding hypertension, bilateral renal stenosis, CAD -with a history of CO2 renal angiogram and attempt at stent placement on 10/14/2019 which was not successful. Appears to have had an ischemic insult to the kidney during the procedure as her renal failure worsened sometime between 07/2019 and 11/2019 -hypokalemia resolved -renally dosing medications -recevied permacath yesterday Elevate troponin -some ST depressions initially -troponin is likely reading falsely high given patient's renal function but there are clear ECG changes -heparin drip discontinued -restart aspirin/plavix per cardiology recommendation Acute blood loss anemia secondary to HD cath site bleeding -bleeding from HD cath site noted early AM on 01/06/2020, no bleeding since -in the setting of CKD with recent epo administration -no dizziness, lightheadedness, chest pain, other symptoms -CBC daily Peripheral arterial disease -arterial dopplers and LAYO's showed right leg with multisegmental SFA stenosis with dampened monophasic flow distally, PT occluded, INES occluded distally. Left leg with short mid SFA occlusion with thrombus like material, reconstitution distal SFA with diminished, monophasic flow. INES, peroneal patent, occluded distal HHA -planned to perform lower extremity angiography with intervention on 12/12/19 but her preoperative labs revealed a creatinine of 4.76 and it was abandoned -will continue toprol, imdur, crestor Hypertension -continuing toprol, amlodipine, imdur AAA -3.9x3.8cm on last CT, partially visualized -3.5cm on previous imaging -f/u outpatient Breast cancer -originally diagnosed June 2015, left breast cancer, infiltrating ductal carcinoma, stage I, ER positive/MA positive, HER-2/mario positive, s/p chemotherapy and radiation -continue exemestane 25 mg daily FENGI: tolerating PO DVT prophylaxis: holding heparin drip due to HD cath site bleeding Code status: DNR/DNI Dispo: med/surg tele (2) Right renal artery stenosis: (3) Chronic kidney disease, stage V: (4) Abdominal aortic aneurysm: (5) Dyslipidemia: (6) Fibromyalgia: (7) Hypertension: (8) Peripheral neuropathy: (9) Renal artery stenosis: (10) PAD (peripheral artery disease): (11) Chronic osteoarthritis: (12) Arteriosclerotic cardiovascular disease (ASCVD): Admission and Anticipated Discharge Date Admission Date: January 05, 2020 Supervising Physician Co-Signing Physician Notes I personally examined the patient and verified all johnson points of history and exam, discussed case, and agree with decision making with Dr Carlson. feels pretty good. notes that she looks good "because of the hat" vitals noted nad heent nc at mmm breathing unlabored no accessory muscles good effort skin no rashes no pallor or icterus acute pulmonary edema causing acute respiratory failure w hypoxia- ESRD/nephrogenic likely as much as HFpEF - but w ESRD/failing diuretics - urgent HD needed - now improving. HD tomorrow. getting set up for T//S HD as outpt NSTEMI - likely severe demand ischemia from above superimposed on known CAD. stabilized otherwise as above Subjective Patient had no acute events overnight. She was seen at the bedside this morning. She feels well and has no new complaints. She denies shortness of breath, chest pain, low appetite, swelling, or any other complaints. Ms. Arnett received her permacath yesterday and is recovering well from the procedure. She is eager to get out of bed today to ambulate around the unit. Review of Systems Constitutional: no fever and no chills Respiratory: no cough, no dyspnea and no wheezing Cardiovascular: no chest pain, no radiating jaw, neck or arm pain, no palpitations and no syncope Gastrointestinal: no nausea, no vomiting, no constipation and no diarrhea/loose stools Physical Exam Constitutional: no acute distress and not ill appearing Respiratory: normal respiratory effort, lungs clear to auscultation normal respiratory effort; no respiratory distress, no labored breathing, does not use accessory muscles and no cough Auscultation: + crackles and + rales; no wheezes Cardiovascular: RRR, no murmur, no edema Rate/Rhythm: regular rate and regular rhythm Heart Sounds: no murmur Gastrointestinal (Abdomen): normal bowel sounds, soft, nontender, no hepatosplenomegaly Results & Data Results & Data ([facility]) Vital Signs (Past 12 Hours) Vital Signs Temp Pulse Pulse Pulse Resp BP BP 01/09/20 07:29 36.7 C 75 16 150/82 H 01/09/20 03:54 37 C 77 18 120/75 01/09/20 00:39 77 01/08/20 23:03 36.9 C 79 18 143/72 H Pulse Ox 01/09/20 07:29 96 01/09/20 03:54 97 01/09/20 00:39 01/08/20 23:03 97 Resident Activity Tracking Resident Involvement: Resident Care Provided Care Provided: Adult Hospital Medicine (1) Abdominal aortic aneurysm Presence of rupture: without rupture Qualified Code(s): I71.4 - Abdominal aortic aneurysm, without rupture (2) Hypertension Hypertension type: renovascular hypertension Qualified Code(s): I15.0 - Renovascular hypertension
--- NOTE | 2020-01-09 09:57 | Nephrology Progress Note ---
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 Started HD via R femoral HD catheter 01/04. RIJ TDC placed 01/08/20. Completed her 3rd HD treatment yesterday. No complications wit HD. Volume status significantly improved. BP and volume status acceptable. Electrolytes controlled. She remains non-oliguric. Case management consult to assist with outpatient dialysis for ESRD at [facility] under the care of Dr. Kaur. First treatment tentatively arranged for Sunday. Plan next treatment tomorrow as inpatient. Medications appropriately dosed for kidney function. (2) Pulmonary edema: Improved. Volume status acceptable. (3) Hypertension: BP and volume status are currently acceptable. (4) Anemia: Epogen 18030 unit provided 01/02/20. Additional 97503 units provided 01/06/20 with 200 mg IV venofer. Venofer 100 mg provided with HD yesterday. Tsat 15 last week with ferritin ~400. Admission and Anticipated Discharge Date Admission Date: January 05, 2020 Subjective No acute events overnight. Tolerated HD well without complications. R IJ PC placed without complications. Femoral catheter removed. Review of Systems Review of Systems: All systems reviewed & are unremarkable except as noted in HPI & below Physical Exam Constitutional: well developed; no acute distress Eyes: + anicteric sclerae; no corneal abnormality ENMT: Mouth: no oral mucosal abnormality and oral mucous membranes not dry Neck: normal visual inspection and trachea midline RIJ TDC Respiratory: normal respiratory effort; no respiratory distress Auscultation: lungs clear to auscultation bilaterally Cardiovascular: Rate/Rhythm: regular rate Heart Sounds: normal S1, normal S2 and + murmur Extremities: no edema Musculoskeletal: Extremities: no cyanosis and no clubbing Skin: normal turgor; no lesions Neurologic: Motor/Sensory: no tremor and no asterixis Psychiatric: Orientation: alert and oriented x 3 Results & Data ([facility]) Vital Signs (Past 12 Hours) Vital Signs Temp Pulse Pulse Pulse Resp BP BP 01/09/20 07:29 36.7 C 75 16 150/82 H 01/09/20 03:54 37 C 77 18 120/75 01/09/20 00:39 77 01/08/20 23:03 36.9 C 79 18 143/72 H Pulse Ox 01/09/20 07:29 96 01/09/20 03:54 97 01/09/20 00:39 01/08/20 23:03 97 Laboratory Results Laboratory Results - last 24 hr 01/09/20 01/09/20 01/09/20 05:23 05:23 05:23 WBC 8.53 RBC 2.44 L Hgb 7.7 L Hct 23.8 L MCV 97.5 MCH 31.6 MCHC 32.4 RDW Std Deviation 48.4 H RDW Coeff of Max 14.0 Plt Count 245 MPV 10.0 Immature Gran % (Auto) 0.6 Neut % (Auto) 53.2 Lymph % (Auto) 22.9 [place] % (Auto) 13.8 Eos % (Auto) 9.0 Baso % (Auto) 0.5 Neut # (Auto) 4.54 Lymph # (Auto) 1.95 [place] # (Auto) 1.18 H Eos # (Auto) 0.77 H Baso # (Auto) 0.04 Immature Gran # (Auto) 0.05 H Absolute Nucleated RBC 0.10 H Nucleated RBC % (auto) 1.1 APTT 29.4 PTT Ratio 1.1 Sodium 139 Potassium 3.6 Chloride 104 Carbon Dioxide 29 Anion Gap 5.0 BUN 29 H Creatinine 3.91 H D Est Cr Clr Drug Dosing 9.5 Est GFR ( Amer) 11.8 Est GFR (Non-Af Amer) 10.2 BUN/Creatinine Ratio 7.4 L Glucose 89 Calcium 8.7 PG Care Time/CCT Total # of Minutes Spent Total Time Spent with Patient: Total time spent is greater than 50% in coordination of care (as documented) at patient's floor/unit and/or counseling patient: Coding Level of Care Code 37044 Subseq Hosp Care Lvl 3 Diagnoses CKD (chronic kidney disease) stage V requiring chronic dialysis N18.6; Z99.2 Pulmonary edema J81.0 Chronicity: acute Hypertension I15.0 Hypertension type: renovascular hypertension Anemia D64.9 (1) Pulmonary edema Chronicity: acute Qualified Code(s): J81.0 - Acute pulmonary edema (2) Hypertension Hypertension type: renovascular hypertension Qualified Code(s): I15.0 - Renovascular hypertension
[2020-01-09] MEDS: ISOSORBIDE MONO EXTENDED REL 60 MG TABCR PO SCH (12:17)
[2020-01-09] MEDS: NON-FORMULARY PATIENT'S OWN MED PO SCH (12:17)
--- NOTE | 2020-01-09 17:16 | Billing Data ---
Date of Service January 09, 2020 Coding Level of Care Code 47241 Subseq Hosp Care Lvl 2
[2020-01-09] MEDS: traMADol HCL 50 MG TABLET PO PRN (21:09)
[2020-01-09] MEDS: ASPIRIN 81 MG ECTAB PO SCH (21:10)
[2020-01-09] MEDS: METOPROLOL SUCC 50MG EXT REL TAB PO SCH (21:10)
[2020-01-09] MEDS: GABAPENTIN 100 MG CAP PO SCH (21:10)
[2020-01-09] MEDS: ROSUVASTATIN CALCIUM 10 MG TAB PO SCH (21:11)
[2020-01-10 08:02] LABS: Hematocrit (blood only) 22.4 % (37-47); Hemoglobin 7.3 g/dL (12.0-16.0)
[2020-01-10] MEDS: NEPHROCAPS PO SCH (08:30)
[2020-01-10] MEDS: CLOPIDOGREL BISULFATE 75 MG TAB PO SCH (08:31)
[2020-01-10] MEDS: CHOLECALCIFEROL 1,000 UNITS 25 MCG TAB PO SCH (08:31)
[2020-01-10] MEDS: amLODIPine BESYLATE 5 MG TAB PO SCH (08:31)
[2020-01-10 08:56] LABS: BUN Creatinine Ratio 9.1 (10-20); Calcium 8.6 mg/dl (8.5-10.1); Creatinine Clr Calc Pharmacy 7.6 ml/min; Est GFR (African American) 8.6; Est GFR (Non-African American) 7.4; Potassium 3.7 mmol/L (3.5-5.1)
--- NOTE | 2020-01-10 10:31 | Nephrology Progress Note ---
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 Started HD via R femoral HD catheter 01/04. RIJ THC placed 01/08/[address] Diaz * HD today for 3 hrs w/ 3K bath. Attempt 1 L UF * Case management has been consulted to set up outpatient dialysis at [facility] w/ Dr. Kaur. First treatment tentatively arranged for Sunday01/13/20 (2) Pulmonary edema: * Improved. Volume status acceptable. (3) Hypertension: * BP and volume status are currently acceptable. (4) Anemia: * Tsat 15% w/ ferritin ~400 * TAMMI and venofer have been administered Admission and Anticipated Discharge Date Admission Date: January 05, 2020 Subjective Mrs. Arnett was seen & examined in her hospital room this morning. She reports that she has been participating in physical therapy. She voiced no new medical concerns. Review of Systems Constitutional: + weakness; no fever Eyes: no problem reported Ear, Nose, Mouth, Throat: no problem reported Respiratory: no dyspnea Cardiovascular: no chest pain, no palpitations and no edema Gastrointestinal: no abdominal pain, no vomiting and no diarrhea/loose stools Genitourinary: no dysuria and no hematuria Musculoskeletal: no back pain Integumentary: no rash Neurologic: no dizziness and no confusion Physical Exam Constitutional: + frail appearing; not in distress Eyes: PERRL, conjunctivae normal, anicteric sclerae ENMT: external ear and nose normal, oropharynx normal Neck: trachea midline, no thyromegaly R IJ THC in place Respiratory: normal respiratory effort, lungs clear to auscultation Cardiovascular: RRR, no murmur, no edema Gastrointestinal (Abdomen): normal bowel sounds, soft, nontender, no hepatosplenomegaly Musculoskeletal: Extremities: + cyanosis (involving multiple toes of each foot. Palpable DP & PT pulses) Skin: no rashes, warm and dry Neurologic: awake; not confused Results & Data ([facility]) Vital Signs (Past 12 Hours) Vital Signs Temp Pulse Pulse Pulse Resp BP BP 01/10/20 07:42 36.8 C 80 16 134/73 01/10/20 07:18 85 01/10/20 03:36 36.8 C 73 14 108/66 01/10/20 00:27 97 H 01/09/20 23:38 36.8 C 98 H 14 159/93 H Pulse Ox 01/10/20 07:42 96 01/10/20 07:18 01/10/20 03:36 96 01/10/20 00:27 01/09/20 23:38 91 Laboratory Results Laboratory Tests 01/10/20 01/10/20 07:25 07:25 Hgb 7.3 L Hct 22.4 L Sodium 136 Potassium 3.7 Chloride 103 Carbon Dioxide 26 BUN 46 H D Creatinine 5.06 H* D Glucose 92 PG Care Time/CCT Total # of Minutes Spent Total Time Spent with Patient: Total time spent is greater than 50% in coordination of care (as documented) at patient's floor/unit and/or counseling patient: Coding Level of Care Code 17460 Subseq Hosp Care Lvl 3 Diagnoses ESRD (end stage renal disease) on dialysis N18.6; Z99.2 Pulmonary edema J81.0 Chronicity: acute Hypertension I15.0 Hypertension type: renovascular hypertension Anemia D64.9 (1) Pulmonary edema Chronicity: acute Qualified Code(s): J81.0 - Acute pulmonary edema (2) Hypertension Hypertension type: renovascular hypertension Qualified Code(s): I15.0 - Renovascular hypertension
[2020-01-10] MEDS ORDERED: IRON SUCROSE 200 MG in 0.9 % SODIUM CHLORIDE 100 ML IV ONE (11:00)
[2020-01-10] MEDS: ISOSORBIDE MONO EXTENDED REL 60 MG TABCR PO SCH (11:06)
[2020-01-10] MEDS: NON-FORMULARY PATIENT'S OWN MED PO SCH (11:33)
--- NOTE | 2020-01-10 17:53 | Billing Data ---
Date of Service January 10, 2020 Coding Level of Care Code 39329 Subseq Hosp Care Lvl 2
--- NOTE | 2020-01-10 18:42 | Hospitalist Progress Note ---
Date of Service January 10, 2020 Assessment & Plan (1) Anemia: Adriana Arnett is an 79 year old woman with CAD, PAD, chronic renal insufficiency, bilateral renal artery stenosis, HTN, HLD, breast cancer in March 2015 s/p chemotherapy and radiation, and osteoarthritis here for shortness of breath and found to be fluid overloaded on chest XR in ED. Much improved after 2L fluid removed during hemodialysis yesterday. Shortness of breath -clinically fluid overloaded yesterday, greatly improved upon 2L ultrafiltrate removed sunday, 800mL sunday -permacath placed yesterday (01/08/2020) -stepped down to room air after a high of 15L yesterday on nonrebreather mask -rivera catheter still in place -strict I's/O's -daily weights ESRD -nuclear medicine renal scan on 12/30/2019 showed asymmetric renal function, 43% from right kidney and 57% from left kidney along with significant bilateral cortical atrophy. -longstanding hypertension, bilateral renal stenosis, CAD -with a history of CO2 renal angiogram and attempt at stent placement on 10/14/2019 which was not successful. Appears to have had an ischemic insult to the kidney during the procedure as her renal failure worsened sometime between 07/2019 and 11/2019 -hypokalemia resolved -renally dosing medications -recevied permacath 01/08/2020 Elevate troponin -some ST depressions initially -troponin is likely reading falsely high given patient's renal function but there are clear ECG changes -heparin drip discontinued -restart aspirin/plavix per cardiology recommendation Acute blood loss anemia secondary to HD cath site bleeding -bleeding from HD cath site noted early AM on 01/06/2020, no bleeding since -in the setting of CKD with recent epo administration -no dizziness, lightheadedness, chest pain, other symptoms -CBC daily Peripheral arterial disease -arterial dopplers and LAYO's showed right leg with multisegmental SFA stenosis with dampened monophasic flow distally, PT occluded, INES occluded distally. Left leg with short mid SFA occlusion with thrombus like material, reconstitution distal SFA with diminished, monophasic flow. INES, peroneal patent, occluded distal [employer] -planned to perform lower extremity angiography with intervention on 12/12/19 but her preoperative labs revealed a creatinine of 4.76 and it was abandoned -will continue toprol, imdur, crestor Hypertension -continuing toprol, amlodipine, imdur AAA -3.9x3.8cm on last CT, partially visualized -3.5cm on previous imaging -f/u outpatient Breast cancer -originally diagnosed June 2015, left breast cancer, infiltrating ductal carcinoma, stage I, ER positive/AK positive, HER-2/mario positive, s/p chemotherapy and radiation -continue exemestane 25 mg daily FENGI: tolerating PO DVT prophylaxis: holding heparin drip due to HD cath site bleeding Code status: DNR/DNI Dispo: med/surg tele, likely discharge home tomorrow (2) Right renal artery stenosis: (3) Chronic kidney disease, stage V: (4) Abdominal aortic aneurysm: (5) Dyslipidemia: (6) Fibromyalgia: (7) Hypertension: (8) Peripheral neuropathy: (9) Renal artery stenosis: (10) PAD (peripheral artery disease): (11) Chronic osteoarthritis: (12) Arteriosclerotic cardiovascular disease (ASCVD): Admission and Anticipated Discharge Date Admission Date: January 05, 2020 Supervising Physician Co-Signing Physician Notes I personally examined the patient and verified all johnson points of history and exam, discussed case, and agree with decision making with Dr Carlson. feels pretty good. worried about going home tonight - feels more comfortable with tomorrow. vitals noted nad heent nc at mmm breathing unlabored no accessory muscles good effort skin no rashes no pallor or icterus acute pulmonary edema causing acute respiratory failure w hypoxia- ESRD/nephrogenic likely as much as HFpEF - but w ESRD/failing diuretics - urgent HD needed - now improving. HD today. set up for T// HD as outpt NSTEMI - likely severe demand ischemia from above superimposed on known CAD. stabilized otherwise as above Review of Systems Constitutional: no fever and no chills Respiratory: no cough and no dyspnea Cardiovascular: no chest pain and no palpitations Gastrointestinal: no abdominal pain, no nausea, no vomiting, no constipation and no diarrhea/loose stools Genitourinary: no dysuria and no urinary frequency Physical Exam Constitutional: no acute distress and not ill appearing Respiratory: normal respiratory effort, lungs clear to auscultation normal respiratory effort; no respiratory distress, no labored breathing, does not use accessory muscles and no cough Auscultation: + crackles and + rales; no wheezes Cardiovascular: RRR, no murmur, no edema Rate/Rhythm: regular rate and regular rhythm Heart Sounds: no murmur Gastrointestinal (Abdomen): normal bowel sounds, soft, nontender, no hepatosplenomegaly Results & Data Results & Data ([facility]) Vital Signs (Past 12 Hours) Vital Signs Temp Pulse Pulse Pulse Resp BP BP 01/10/20 07:42 36.8 C 80 16 134/73 01/10/20 07:18 85 01/10/20 03:36 36.8 C 73 14 108/66 01/10/20 00:27 97 H 01/09/20 23:38 36.8 C 98 H 14 159/93 H Pulse Ox 01/10/20 07:42 96 01/10/20 07:18 01/10/20 03:36 96 01/10/20 00:27 01/09/20 23:38 91 Resident Activity Tracking Resident Involvement: Resident Care Provided Care Provided: Adult Hospital Medicine (1) Abdominal aortic aneurysm Presence of rupture: without rupture Qualified Code(s): I71.4 - Abdominal aortic aneurysm, without rupture (2) Hypertension Hypertension type: renovascular hypertension Qualified Code(s): I15.0 - Renovascular hypertension
--- NOTE | 2020-01-10 19:05 | Billing Data ---
Date of Service January 10, 2020 Coding Level of Care Code 94620 Subseq Hosp Care Lvl 2
[2020-01-10] MEDS: GABAPENTIN 100 MG CAP PO SCH (20:34)
[2020-01-10] MEDS: METOPROLOL SUCC 50MG EXT REL TAB PO SCH (20:34)
[2020-01-10] MEDS: ROSUVASTATIN CALCIUM 10 MG TAB PO SCH (20:34)
[2020-01-10] MEDS: ASPIRIN 81 MG ECTAB PO SCH (20:34)
[2020-01-10] MEDS: traMADol HCL 50 MG TABLET PO PRN (20:36)
[2020-01-11 05:52] LABS: Basophils # (auto) 0.03 K/uL (0-0.2); Basophils % (auto) 0.3 %; Eosinophils % (auto) 6.8 %; Hematocrit (blood only) 24.8 % (37-47); Immature Granulocytes # (auto) 0.15 K/uL (0.00-0.02); Immature Granulocytes % (auto) 1.5 %; Lymphocytes # (auto) 2.26 K/uL (1.2-3.4); Lymphocytes % (auto) 21.9 %; Mean Corpuscular Hemoglobin 31.9 pg (25-34); Mean Corpuscular Hgb Conc 32.3 g/dL (32-36); Mean Corpuscular Volume 98.8 fL (80-100); Mean Platelet Volume 9.6 fL (7.4-10.4); Monocytes # (auto) 1.22 K/uL (0.11-0.59); Monocytes % (auto) 11.8 %; Neutrophils # (auto) 5.94 K/uL (1.4-6.5); Neutrophils % (auto) 57.7 %; Nucleated RBC # (auto) 0.05 K/uL (0-0); Nucleated RBC % (auto) 0.5 %; Platelet Count 213 K/uL (130-400); RDW Coefficient of Variation 15.8 % (11.5-14.5); RDW Standard Deviation 48.9 fL (36.4-46.3); Red Blood Count 2.51 M/uL (4.2-5.4)
[2020-01-11 06:57] LABS: BUN Creatinine Ratio 6.2 (10-20); Calcium 8.6 mg/dl (8.5-10.1); Creatinine Clr Calc Pharmacy 12.9 ml/min; Est GFR (African American) 16.8; Est GFR (Non-African American) 14.5; Potassium 3.8 mmol/L (3.5-5.1)
[2020-01-11 07:05] VITALS: O2SAT 95
[2020-01-11] MEDS: NEPHROCAPS PO SCH (07:53)
[2020-01-11] MEDS: amLODIPine BESYLATE 5 MG TAB PO SCH (07:54)
[2020-01-11] MEDS: CHOLECALCIFEROL 1,000 UNITS 25 MCG TAB PO SCH (07:54)
[2020-01-11] MEDS: CLOPIDOGREL BISULFATE 75 MG TAB PO SCH (07:54)
--- NOTE | 2020-01-11 09:52 | Nephrology Progress Note ---
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 Started HD via R femoral HD catheter 01/04. RIJ THC placed 01/08/[address] Diaz * Volume status & electrolyte balance are acceptable. No acute indication for HD today * Case management has been consulted to set up outpatient dialysis at [facility] w/ Dr. Kaur. First treatment tentatively arranged for Sunday01/13/20 * Will consult dietitian to provide education on low potassium/HD diet (2) Pulmonary edema: * Improved. Volume status acceptable. (3) Hypertension: * BP and volume status are currently acceptable. (4) Anemia: * Tsat 15% w/ ferritin ~400 * TAMMI and venofer have been administered * Hgb is now trending up Admission and Anticipated Discharge Date Admission Date: January 05, 2020 Subjective Mrs. Arnett was seen & examined in her hospital room this morning. She was dialyzed yesterday for 1 L UF without complication. IJ THC ran well. Mrs. Arnett was up ambulating w/ physical therapy yesterday. She voices no new medical concerns Review of Systems Constitutional: no fever Eyes: no problem reported Ear, Nose, Mouth, Throat: no problem reported Respiratory: no dyspnea Cardiovascular: no chest pain, no palpitations and no edema Gastrointestinal: no abdominal pain, no vomiting and no diarrhea/loose stools Genitourinary: no dysuria and no hematuria Musculoskeletal: no back pain Integumentary: no rash Neurologic: no dizziness and no confusion Physical Exam Constitutional: + frail appearing; not in distress Eyes: PERRL, conjunctivae normal, anicteric sclerae ENMT: external ear and nose normal, oropharynx normal Neck: trachea midline, no thyromegaly (R IJ THC w/ clean, dry dressing in place) Respiratory: normal respiratory effort, lungs clear to auscultation Cardiovascular: RRR, no murmur, no edema Gastrointestinal (Abdomen): normal bowel sounds, soft, nontender, no hepatosplenomegaly Musculoskeletal: Extremities: + cyanosis (involving multiple toes of each foot. Palpable DP & PT pulses) Skin: no rashes, warm and dry Neurologic: awake; not confused Results & Data ([facility]) Vital Signs (Past 12 Hours) Vital Signs Temp Pulse Pulse Resp BP BP Pulse Ox 01/11/20 07:21 84 01/11/20 06:24 36.9 C 85 18 131/73 95 01/11/20 03:12 37.3 C 91 H 16 147/88 H 94 01/10/20 23:00 87 01/10/20 22:08 36.9 C 88 16 134/73 95 Laboratory Results Laboratory Tests 01/11/20 01/11/20 05:33 05:33 WBC 10.30 Hgb 8.0 L Hct 24.8 L Plt Count 213 Sodium 141 Potassium 3.8 Chloride 106 Carbon Dioxide 29 BUN 18 D Creatinine 2.91 H D Glucose 90 PG Care Time/CCT Total # of Minutes Spent Total Time Spent with Patient: Total time spent is greater than 50% in coordination of care (as documented) at patient's floor/unit and/or counseling patient: Coding Level of Care Code 62572 Subseq Hosp Care Lvl 3 Diagnoses ESRD (end stage renal disease) on dialysis N18.6; Z99.2 Pulmonary edema J81.0 Chronicity: acute Hypertension I15.0 Hypertension type: renovascular hypertension Anemia D64.9 (1) Pulmonary edema Chronicity: acute Qualified Code(s): J81.0 - Acute pulmonary edema (2) Hypertension Hypertension type: renovascular hypertension Qualified Code(s): I15.0 - Renovascular hypertension
[2020-01-11 11:23] VITALS: PULSE 82; TEMP 98.8
[2020-01-11] MEDS: ISOSORBIDE MONO EXTENDED REL 60 MG TABCR PO SCH (11:53)
[2020-01-11] MEDS: NON-FORMULARY PATIENT'S OWN MED PO SCH (11:53)
[2020-01-11 13:01] VITALS: BP 134/73
--- NOTE | 2020-01-11 13:15 | Discharge Summary ---
Date of Service January 11, 2020 Admission HPI Per Admitting Provider Adriana Arnett is a caterina 79 year old woman with PMHx of CAD, PAD, chronic renal insufficiency, bilateral renal artery stenosis, HTN, HLD, breast cancer in March 2015 s/p chemotherapy and radiation, osteoarthritis who presents today for one night of wheezing and shortness of breath. She felt she could not catch her breath, could not sleep, and felt like she was wheezing and short of breath. says wheezing was audible to him as well. She was seen by EMS and when O2 was given she immediately felt better.She is lying in her hospital bed lying comfortably endorsing no other symptoms with [address]. ROS negative apart from shortness of breath, also having pain with her blue third toe on the right foot. VItals significant for hypertension and hypoxemic respiratory failure, oxygenating well on 4L currently. Labwork showing no elevated white count, hemoglobin of 9.9 up from 9.3 ( of note patient did start erythropoetin for first time yesterday). INR slightly elevated to 1.2 DDimer of 6350, Potassium of 3.3, Creatinine of 5.33 BUN of 39 up from 4.61 and 36 yesterday. Troponin elevated to .469. Chest XR showing evidence of pulmonary vessel congestion and some pulmonary edema by my read. ECG obtained showing lateral ST depressions. She is regularly followed by nephrology and cardiology and attempted to have a renal arterial stent placed at the end of October [address] [facility], however the procedure was unsuccessful. There was question to if she had suffered an atheroembolic event as a result of the procedure. She has significant bilateral renal artery stenosis. Pt is being followed closely by Dr. Pfeiffer and Dr. Kaur as an outpatient. She was admitted for difficulties speaking and word finding as well as progressive weakness, unsteady gait, and some nausea and poor PO intake she was also markedly hypertensive and required a nicardipine drip. She had a negative CVA workup and patient already on ASA and plavix, pressures improved starting amlodipine increasing her imdur and increasing her toprol. Nephrology saw her for her chronic and worsening renal failure and recommended that if she is ready for dialysis they would be ready to initiate it, initially was supposed to meet with [facility] for a second opinion but at this point she feels she is willing to try dialysis. Patient also with a strong history of Athersclerotic vascular disease, she has a history of CAD and peripheral vascular disease, after renal artery stent attempt patient has blue painful toes on right side, was going to look at peripheral arterial stenting but was thought to be too unstable on planned intervention date, was going to also seek vascular opinion at [facility]. Patient lives at home with , non smoker, non drinker, non drug user. She wishes to be DNR/DNI at this time. Admission Exam Per Admitting Provider Constitutional: well developed and well nourished; no acute distress Eyes: PERRL, conjunctivae normal, anicteric sclerae ENMT: external ear and nose normal, oropharynx normal Respiratory: normal respiratory effort and + cough; no respiratory distress and does not use accessory muscles Auscultation: + crackles, + rales and + wheezes (End expiratory wheezes) Cardiovascular: RRR, no murmur, no edema Gastrointestinal (Abdomen): normal bowel sounds, soft, nontender, no hepatosplenomegaly Principal Diagnosis ESRD Discharge Exam Constitutional: no acute distress and not ill appearing Respiratory: normal respiratory effort, lungs clear to auscultation normal respiratory effort; no respiratory distress, no labored breathing, does not use accessory muscles and no cough Auscultation: no crackles, rales, or wheezes Cardiovascular: RRR, no murmur, no edema Rate/Rhythm: regular rate and regular rhythm Heart Sounds: no murmur Chest: permanent R IVC venous catheter in place with no surrounding erythema or tenderness - dressing c/d/i Gastrointestinal (Abdomen): normal bowel sounds, soft, nontender, no hepatosplenomegaly Discharge Data Allergies Allergy/AdvReac Type Severity Reaction Status Date / Time hydrocodone Allergy Intermediate RASH, HIVES Verified 01/09/20 11:55 Sulfa (Sulfonamide AdvReac Intermediate "SULFA Verified 01/09/20 11:55 Antibiotics) DRUGS": N/V spironolactone AdvReac Mild GI Unverified 01/09/20 11:55 SYMPTOMS,NAUSEA AND VOMITING Aldactazide AdvReac Unknown GI Unverified 07/24/17 10:20 SYMPTOMS,NAUSEA AND VOMITING hydrochlorothiazide AdvReac Unknown GI Unverified 01/01/20 11:51 SYMPTOMS,NAUSEA AND VOMITING Consultations 01/05/20 02:57 ED Decision to Admit Stat 01/05/20 06:14 Consult Nephrology Routine 01/05/20 06:47 Consult Cardiology Routine 01/05/20 08:21 Consult Vascular Surgery Routine Procedures Performed Operation Date: 01/05/20 11:30 Actual Procedures p Temporary Perm Catheter Insertion, Right Femoral Vein Approach, Fluroscopy for Positioning. (Right) - Prudencio Diaz MD Operation Date: 01/08/20 13:50 Actual Procedures p Insertion of Perm Catheter, Right Internal Jugular Approach, Ultrasound Localization of Right Internal Jugular Vein, Fluoroscopy for Positioning; Removal of Temporary Dialysis Catheter Right Groin; Moderate Sedation From 1426 to 1450. 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 Much improved after 2L fluid removed during hemodialysis on 01/04. Shortness of breath - >3 L fluid removed during hemodialysis -R IVC permacath placed on 01/08/2020 -stepped down to room air on 01/08 after a high of 15L on nonrebreather mask - euvolemic on exam and nonlabored breathing on room air without crackles on exam, much improved ESRD -nuclear medicine renal scan on 12/30/2019 showed asymmetric renal function, 43% from right kidney and 57% from left kidney along with significant bilateral cortical atrophy. -longstanding hypertension, bilateral renal stenosis, CAD -with a history of CO2 renal angiogram and attempt at stent placement on 10/14/2019 which was not successful. Appears to have had an ischemic insult to the kidney during the procedure as her renal failure worsened sometime between 07/2019 and 11/2019 -hypokalemia resolved during hospitalization -renally dosing medications -recevied permacath 01/08/2020 as mentioned above - rivera in place - outpatient hemodialysis T/Th/S scheduled, starting on 01/13/2020, at [facility] with Dr. Kaur Elevated Troponin -some ST depressions initially - Cards consulted, determined secondary to demand ischemia from ESRD, hypervolemic status and baseline multivessel CAD (occluded distal right, occluded distal Cx, 90% focal stenosis in mid Cx into OM1) - s/p Heparin gtt - DAPT with Aspirin/Plavix - Continue Toprol XL, Imdur, Amlodipine - Continue Statin - follow up with Cardiology Acute blood loss anemia secondary to HD cath site bleeding -bleeding from HD cath site noted early AM on 01/06/2020, no bleeding since -in the setting of CKD with recent epo administration -no dizziness, lightheadedness, chest pain, other symptoms - Hgb increasing from low 7s to 8.0 as of 01/10 - baseline Hgb 9-10 - follow up with PCP about anemia and serial CBCs PRN Peripheral arterial disease -arterial dopplers and LAYO's showed right leg with multisegmental SFA stenosis with dampened monophasic flow distally, PT occluded, INES occluded distally. Left leg with short mid SFA occlusion with thrombus like material, reconstitution distal SFA with diminished, monophasic flow. 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 -planned to perform lower extremity angiography with intervention on 12/12/19 but her preoperative labs revealed a creatinine of 4.76 and it was abandoned -will continue toprol, imdur, crestor as mentioned above Hypertension -continuing toprol, amlodipine, imdur as mentioned above AAA -3.9x3.8cm on last CT, partially visualized -3.5cm on previous imaging -f/u outpatient Breast cancer -originally diagnosed June 2015, left breast cancer, infiltrating ductal carcinoma, stage I, ER positive/MO positive, HER-2/mario positive, s/p chemotherapy and radiation -continue exemestane 25 mg daily Total Time Total Time Spent Total Time Spent (In Minutes): <30 minutes Total Time Includes: Examination of the Patient, Discharge Planning and Medication Reconciliation Discharge Plan Discharge Items Patient Disposition: Home - Self-Care Reason For Visit: SHORTNESS OF BREATH,PULMONARY EDEMA, RENAL FAILURE Discharge Diagnosis: End Stage Renal Disease Condition on Discharge: Good Activity: Per Instructions section Non-emergency contact: Primary Care Provider and Agricultural Equipment Test Engineer Call non-emergency contact if: you have any medication questions, your symptoms worsen and you have a fever Follow-up/Referrals: Johnny Rai MD [Primary Care Provider] - Diet: Dialysis Renal and Low Potassium (2gm) Addtl Attending Provider Instructions: You were admitted to [facility] on 01/05 for shortness of breath. You were found to be overloaded with fluid in your lungs, and your were given diuretics (IV Lasix) to take the fluid out. You did not respond well to the diuretics, and you eventually needed hemodialysis in order to remove the excess fluid in your body, as your fluid status was likely due to End Stage Kidney Disease. You improved with hemodialysis, and a permanent central catheter was placed in your chest in order to continue dialysis. You also had increased blood levels of a heart enzyme marker, called Troponin, that is a sensitive marker for showering injury to the heart. This was likely due to inadequate perfusion to your heart, resulting from End Stage Kidney Disease. Cardiology saw you while you were in the hospital and recommended that you continue on all the same medications, in addition to continuing on dialysis. You will continue to see Dr. Kaur (kidney doctor) as an outpatient, and you have been scheduled to receive outpatient hemodialysis at [facility]. Your first appointment is scheduled for Friday 01/12. You should avoid high potassium foods and follow a dialysis diet. You will be discharged in much improved condition, breathing well without supplemental oxygen, on 01/11/2020. Pending Studies at Discharge: No Stand-Alone Forms: My [facility], Smoking Cessation Medications and DC Order Prescriptions: Continued cholecalciferol (vitamin D3) 2,000 unit capsule 2,000 units PO QAM RF: 0 nitroglycerin [Nitrostat] 0.4 mg tablet, sublingual 0.4 mg SL Q5M PRN (Reason: Chest Pain) RF: 0 rosuvastatin 10 mg tablet 10 mg PO HS Qty: 90 RF: 3 clopidogrel 75 mg tablet 75 mg PO QAM Qty: 90 RF: 3 pantoprazole 40 mg tablet,delayed release (DR/EC) 40 mg PO DAILY PRN (Reason: Acid Reflux) RF: 0 exemestane 25 mg tablet 25 mg PO DAILY@1200 RF: 0 coenzyme Q10 200 mg capsule 200 mg PO QAM RF: 0 isosorbide mononitrate 60 mg Tablet Extended Release 24 Hr 60 mg PO DAILY@1200 Qty: 30 RF: 0 metoprolol succinate 50 mg Tablet Extended Release 24 Hr 50 mg PO HS Qty: 30 RF: 0 amlodipine 10 mg tablet 10 mg PO DAILY Qty: 30 RF: 0 ondansetron 4 mg tablet,disintegrating 4 mg PO Q6H PRN (Reason: nausea and vomiting) Qty: 10 RF: 0 tramadol 50 mg tablet 50 mg PO Q12 PRN (Reason: Pain) Qty: 0 RF: 0 gabapentin 100 mg capsule 200 mg PO QAM Qty: 60 RF: 0 aspirin [Enteric Coated Aspirin] 81 mg tablet,delayed release (DR/EC) 81 mg PO HS RF: 0 Discharge Orders: Discharge Order (Routine); Ordered 01/11/20 Ordered By: Vladimir Hunter/Other Patient Handouts: Kidney Failure: Your Healthcare Team, Caring for Your Central Vein Access, Low Potassium Diet Dc Admission Data Admit Date/Time: 01/05/20 04:45 Attending Provider: Artemio Damon Admit Provider: Chetan Meraz Primary Care Provider: Johnny Rai Other Providers: Gerson Brambila ; Suhail Gomez ; Loco Tolentino ; Sarbjit Pfeiffer Other Interventions: Discharge Summary Assessment (RN) Last Done: 01/11/20 12:59 Supervising Physician Co-Signing Physician Notes I personally examined the patient and verified all johnson points of history and exam, discussed case, and agree with decision making with Dr Ireland. feels pretty good. ready to go home vitals noted nad heent nc at mmm breathing unlabored no accessory muscles good effort skin no rashes no pallor or icterus acute pulmonary edema causing acute respiratory failure w hypoxia- ESRD/nephrogenic likely as much as HFpEF - but w ESRD/failing diuretics - urgent HD needed earlier in hospitalization - now improving. is being set up for T// HD as outpt, stable to go home NSTEMI - likely severe demand ischemia from above superimposed on known CAD. stabilized otherwise as above Resident Activity Tracking Resident Involvement: Resident Care Provided Care Provided: Adult Hospital Medicine
--- NOTE | 2020-01-11 17:21 | Billing Data ---
Date of Service January 11, 2020 Coding Level of Care Code D/C Day Management <30 mins
== END 2020-01-11 13:50 | disposition home or self-care (01) | DRG 189 ==
LOC: ED 00:59 → 2N 04:45 → SUATTDRO 04:45 → 2N 06:19

== ENCOUNTER 2020-06-09 03:32 | Inpatient (IN) ==
[2020-06-09 04:21] LABS: Basophils # (auto) 0.06 K/uL (0-0.2); Basophils % (auto) 0.4 %; Hematocrit (blood only) 31.5 % (37-47); Hemoglobin 10.3 g/dL (12.0-16.0); Immature Granulocytes # (auto) 0.04 K/uL (0.00-0.02); Immature Granulocytes % (auto) 0.3 %; Lymphocytes # (auto) 2.12 K/uL (1.2-3.4); Lymphocytes % (auto) 13.4 %; Mean Corpuscular Hemoglobin 32.6 pg (25-34); Mean Corpuscular Hgb Conc 32.7 g/dL (32-36); Mean Corpuscular Volume 99.7 fL (80-100); Mean Platelet Volume 10.1 fL (7.4-10.4); Monocytes # (auto) 0.98 K/uL (0.11-0.59); Monocytes % (auto) 6.2 %; Neutrophils # (auto) 11.88 K/uL (1.4-6.5); Neutrophils % (auto) 74.7 %; Platelet Count 276 K/uL (130-400); RDW Coefficient of Variation 15.4 % (11.5-14.5); RDW Standard Deviation 55.8 fL (36.4-46.3); Red Blood Count 3.16 M/uL (4.2-5.4); White Blood Count 15.88 K/uL (4.8-10.8)
[2020-06-09 04:31] LABS: INR 1.1 (0.9-1.1); Partial Thromboplastin Ratio 0.9; Partial Thromboplastin Time 23.6 Seconds (21.0-31.0); Prothrombin Time 10.8 Seconds (9.0-12.0)
[2020-06-09 04:57] LABS: Albumin Globulin Ratio 0.7 (0.9-2); Albumin Level 3.6 gm/dl (3.4-5.0); BUN Creatinine Ratio 4.3 (10-20); Bilirubin,Total 0.7 mg/dl (0.2-1); Calcium 9.5 mg/dl (8.5-10.1); Creatinine Clr Calc Pharmacy 4.7 ml/min; Est GFR (Non-African American) 5.2; Globulin 5.2 gm/dl (2.5-4.0); Potassium 4.6 mmol/L (3.5-5.1); Total Protein 8.8 gm/dl (6.4-8.2); Troponin I 0.165 ng/ml (0-0.045)
--- NOTE | 2020-06-09 06:26 | Emergency Department Note ---
Impression & Plan Pulmonary edema, Hypoxia ED Provider Note NAME: TRI PETERSON AGE: 79 SEX: F ARRIVES VIA: Walk-In INFORMANT: Patient ED PROVIDER(S): Maria De Jesus Alegria DO CHIEF COMPLAINT: Shortness of breath PLAN: Disposition: Admitted to the [facility] Condition: Stable MEDICAL DECISION MAKING: This is an 79-year-old female patient who typically receives dialysis on Sunday, Wednesdays, and Fridays who awoke with increasing shortness of breath. Patient states that she felt somewhat nauseated after dinner this evening and actually took Tums before bed. She woke up feeling the same way with some associated shortness of breath and took pantoprazole with no relief of her symptoms. The patient then went on to develop some discomfort between her shoulder blades. The patient admits that she has been coughing for the past 24 hours and feels as if she cannot catch her breath. The patient had O2 saturation of 82% on room air. I discussed the case with Dr. Felix who will evaluate the patient for further inpatient care Triage Nursing notes reviewed and agree with them. Prior medical records reviewed Vital Signs: reviewed and unremarkable Differential diagnosis: COVID-19, CHF, pneumonia, PE Diagnostics interpreted by me: ECG: Normal sinus rhythm at a rate of 99. There is no ST segment elevation or signs of ischemia. There is no ectopy. Cardiac Monitoring: Normal sinus rhythm at 88 Laboratory studies: See below Imaging studies: As per my interpretation Portable chest x-ray: Pulmonary edema HPI: 79/F arrives for evaluation of shortness of breath. This is an 79-year-old female patient who typically receives dialysis on Sunday, Wednesdays, and Fridays who awoke with increasing shortness of breath. Patient states that she felt somewhat nauseated after dinner this evening and actually took Tums before bed. She woke up feeling the same way with some associated shortness of breath and took pantoprazole with no relief of her symptoms. The patient then went on to develop some discomfort between her shoulder blades. The patient admits that she has been coughing for the past 24 hours and feels as if she cannot catch her breath. ROS: See above HPI for pertinent positives & negatives. A total of 10 systems reviewed and were otherwise negative. PAST MEDICAL HISTORY:See Below PAST SURGICAL HISTORY:See Below FAMILY HISTORY:See Below SOCIAL HISTORY:See Below HOME MEDICATIONS:See list ALLERGIES:See list VITALS:See Below PHYSICAL EXAMINATION: HEENT: Head - normocephalic and atraumatic Pupils are equal, round, and reactive to light. Extraocular eye muscles are intact, and sclera are anicteric. Nose - moist nasal mucosa without discharge. Mouth - moist buccal mucosa. Oropharynx is nonerythematous and there is no tonsillar exudate or edema noted. Neck: Supple; no JVD or cervical lymphadenopathy Heart: Regular rate and rhythm. There is a normal S1 and S2 with no murmurs, clicks, or gallops appreciated. Lungs: Diminished breath sounds in all lung torres with rales at the bases. Abdomen: Soft, completely nontender, nondistended, with good bowel sounds. There are no palpable pulsatile masses or hepatosplenomegaly. There is no guarding, rigidity, or rebound noted. Extremities: No evidence of cyanosis, clubbing, or edema. There are easily palpable peripheral pulses. Skin: warm and dry with good turgor and no rashes. ED COURSE: Times/Reassessments: [id number]: The patient was evaluated in room C 11. A complete history and physical was performed. Previous electronic medical records were reviewed. An order was placed for continuous cardiac monitoring. The patient was in a normal sinus rhythm at a rate of 88. Laboratory studies were drawn as above. A portable chest x-ray was performed. This showed evidence of fluid overload. Patient was hypoxic without supplemental oxygen. I have personally spent greater than 30 minutes of critical care time in the direct management of this patient. This includes bedside care, interpretation of diagnostic studies, and testing, discussion with consultants, patient, and family members, and other required patient management activities. This 30 minutes is in excess of all separately billable procedures. Maria De Jesus Alegria DO Past Med/Surg History Medical History (Updated 06/10/20 @ 19:32 by Maria De Jesus Alegria DO) AAA (abdominal aortic aneurysm) PCP monitoring. "Mild fusiform aneurysmal dilatation of the distal thoracic and abdominal aorta." per 02/27/[address] CAD (coronary artery disease) Severe multivessel coronary artery diseaseoccluded distal right, occluded distal circumflex, 90% focal stenosis in mid circumflex into OM1 - follows with Dr. Pfeiffer Degenerative joint disease, multiple joints on both sides of body Dyslipidemia ESRD (end stage renal disease) on dialysis started dialysis 12/2019 - [facility] - follows with Dr. Kaur Fibromyalgia GERD (gastroesophageal reflux disease) History of breast cancer Lt lumpectomy/chemo/radiation 2016 History of myocardial infarction silent -- informed in 2018 of evidence of previous [place] History of skin cancer removed History of stent insertion of renal artery Lt History of ulcerative colitis Hypertension Mitral regurgitation Osteoarthritis PAD (peripheral artery disease) Peripheral neuropathy Right renal artery stenosis h/o failed attempt to stent Rt renal artery per pt - atheroemboli to her feet and kidneys Spinal stenosis Surgical History History of anesthesia reaction "easy to put out and hard to wake up" History of breast biopsy History of cardiac catheterization 2017 [place] -abn stress test - no stents History of colectomy No colostomy, anastamosis of small bowel. History of colonoscopy History of esophagogastroduodenoscopy (EGD) History of lumpectomy of left breast History of vascular access device temporary dialysis catheter to Rt chest History of vascular surgery 03/22/2020 DR Pfeiffer [facility] stents to BLLE Family History Mother Colon cancer Cardiac disorder Hypertension Father Colon cancer Cardiac disorder Cancer Family/Other Coronary arteriosclerosis Other No family history of adverse response to anesthesia Social History Smoking Status: Never smoker Second Hand Exposure: Yes (hx); Hx Alcohol Use: No Hx Substance Use: No Preferred Language: Divehi Communication Ability: Effective Adult Neurologist Required: No Beliefs That Will Affect Care: None marital status: Current Living Situation: Spouse current occupational status: retired How many Children do You have: 1 How many Children do You have Comment: not local. able to assist with care as needed. Feels Safe at Home: Yes Diet Comment: renal diet during the past year weight has: decreased > 10 lbs Assistive Devices: Denture - Upper and Oxygen - Continuous Allergies Allergies Allergy/AdvReac Type Severity Reaction Status Date / Time hydrocodone Allergy Intermediate RASH, HIVES Verified 06/09/20 04:23 Sulfa (Sulfonamide AdvReac Intermediate "SULFA Verified 06/09/20 04:23 Antibiotics) DRUGS": N/V spironolactone AdvReac Mild GI Verified 06/09/20 04:23 SYMPTOMS,NAUSEA AND VOMITING Aldactazide AdvReac Unknown GI Unverified 07/24/17 10:20 SYMPTOMS,NAUSEA AND VOMITING hydrochlorothiazide AdvReac Unknown GI Verified 06/09/20 04:23 SYMPTOMS,NAUSEA AND VOMITING Home Meds Home Medications Medication Instructions Recorded Confirmed cholecalciferol (vitamin D3) 50 2,000 units PO QAM 10/16/18 06/09/20 mcg (2,000 unit) capsule coenzyme Q10 200 mg capsule 200 mg PO QAM cap 10/31/18 06/09/20 exemestane 25 mg tablet 25 mg PO DAILY@1200 tab 10/31/18 06/09/20 aspirin [Enteric Coated Aspirin] 81 mg PO HS 01/23/19 06/09/20 amlodipine 10 mg PO QAM 02/27/20 06/09/20 gabapentin 100 mg capsule 200 mg PO HS cap 04/01/20 06/09/20 isosorbide mononitrate 60 mg 30 mg PO DAILY@1200 tab 04/01/20 06/09/20 tablet,extended release 24 hr Previous Rx's Medication Instructions Recorded clopidogrel 75 mg tablet 75 mg PO QAM #90 tab 12/29/19 metoprolol succinate 50 mg 50 mg PO HS #90 tab 01/16/20 tablet,extended release 24 hr rosuvastatin 10 mg tablet 10 mg PO HS #90 tab 04/08/20 lansoprazole 30 mg capsule,delayed 30 mg PO DAILY #30 cap 06/03/20 release ondansetron 4 mg disintegrating 4 mg PO Q6H PRN #90 tab 06/03/20 tablet tramadol 50 mg tablet 50 mg PO Q12 PRN #60 tab 06/04/20 Results & Data (ED) Vital Signs Vital Signs - 24 hr 06/09/20 03:35 06/09/20 03:50 06/09/20 03:53 Temperature 36.8 C Temperature Source Temporal Artery Scan Pulse Rate 102 H Pulse Rate from SpO2 Sensor Respiratory Rate 24 Blood Pressure 146/89 H Blood Pressure Mean 108 Pulse Oximetry 93 82 L 82 L Oxygen Delivery Method Room Air Room Air Room Air Oxygen Flow Rate Sepsis New/Unexplained Change in Mental Status N/A Sepsis Action Taken by Nursing No Action Required Oxygen Flow Rate - Titration 4 Pulse Oximetry Post Tiitration 96 06/09/20 04:30 06/09/20 05:00 06/09/20 05:30 Temperature Temperature Source Pulse Rate 91 H 93 H 91 H Pulse Rate from SpO2 Sensor 91 H 94 H 91 H Respiratory Rate 24 20 22 Blood Pressure 131/79 123/77 125/80 Blood Pressure Mean 96 92 95 Pulse Oximetry 97 100 92 Oxygen Delivery Method Nasal Cannula Nasal Cannula Oxygen Flow Rate 5 5 Sepsis New/Unexplained Change in Mental Status Sepsis Action Taken by Nursing Oxygen Flow Rate - Titration Pulse Oximetry Post Tiitration 06/09/20 06:00 Temperature Temperature Source Pulse Rate 93 H Pulse Rate from SpO2 Sensor 94 H Respiratory Rate 16 Blood Pressure 128/71 Blood Pressure Mean 90 Pulse Oximetry 94 Oxygen Delivery Method Nasal Cannula Oxygen Flow Rate 5 Sepsis New/Unexplained Change in Mental Status Sepsis Action Taken by Nursing Oxygen Flow Rate - Titration Pulse Oximetry Post Tiitration Laboratory Data Result diagrams: 06/10/20 04:45 06/10/20 04:45 Lab Results 06/09/20 06/09/20 06/09/20 Range/Units 04:00 04:00 04:00 WBC 15.88 H (4.8-10.8) K/uL RBC 3.16 L (4.2-5.4) M/uL Hgb 10.3 L (12.0-16.0) g/dL Hct 31.5 L (37-47) % MCV 99.7 (80-100) fL MCH 32.6 (25-34) pg MCHC 32.7 (32-36) g/dL RDW Std Deviation 55.8 H (36.4-46.3) fL RDW Coeff of Max 15.4 H (11.5-14.5) % Plt Count 276 (130-400) K/uL MPV 10.1 (7.4-10.4) fL Immature Gran % (Auto) 0.3 % Neut % (Auto) 74.7 % Lymph % (Auto) 13.4 % [place] % (Auto) 6.2 % Eos % (Auto) 5.0 % Baso % (Auto) 0.4 % Neut # (Auto) 11.88 H (1.4-6.5) K/uL Lymph # (Auto) 2.12 (1.2-3.4) K/uL [place] # (Auto) 0.98 H (0.11-0.59) K/uL Eos # (Auto) 0.80 H (0-0.5) K/uL Baso # (Auto) 0.06 (0-0.2) K/uL Immature Gran # (Auto) 0.04 H (0.00-0.02) K/uL PT 10.8 (9.0-12.0) Seconds INR 1.1 (0.9-1.1) APTT 23.6 (21.0-31.0) Seconds PTT Ratio 0.9 Sodium 133 L (136-145) mmol/L Potassium 4.6 (3.5-5.1) mmol/L Chloride 95 L (98-107) mmol/L Carbon Dioxide 28 (21-32) mmol/L Anion Gap 10.0 (3-11) BUN 30 H (7-18) mg/dl Creatinine 6.81 H* (0.6-1.2) mg/dl Est Cr Clr Drug Dosing 4.7 ml/min Est GFR ( Amer) 6.0 Est GFR (Non-Af Amer) 5.2 BUN/Creatinine Ratio 4.3 L (10-20) Glucose 105 H (70-99) mg/dl Calcium 9.5 (8.5-10.1) mg/dl Total Bilirubin 0.7 (0.2-1) mg/dl AST 20 (15-37) U/L ALT 9 L (12-78) U/L Alkaline Phosphatase 70 (45-117) U/L Troponin I 0.165 H* (0-0.045) ng/ml Total Protein 8.8 H (6.4-8.2) gm/dl Albumin 3.6 (3.4-5.0) gm/dl Globulin 5.2 H (2.5-4.0) gm/dl Albumin/Globulin Ratio 0.7 L (0.9-2) COVID-19 Eval Order SARS-CoV-2 (PCR) (Negative) Hep Bs Antigen (Neg) Influenza Type A (PCR) (Neg) Influenza Type B (PCR) (Neg) RSV (RT-PCR) (Neg) 06/09/20 06/09/20 06/09/20 Range/Units 04:00 05:56 05:56 WBC (4.8-10.8) K/uL RBC (4.2-5.4) M/uL Hgb (12.0-16.0) g/dL Hct (37-47) % MCV (80-100) fL MCH (25-34) pg MCHC (32-36) g/dL RDW Std Deviation (36.4-46.3) fL RDW Coeff of Max (11.5-14.5) % Plt Count (130-400) K/uL MPV (7.4-10.4) fL Immature Gran % (Auto) % Neut % (Auto) % Lymph % (Auto) % [place] % (Auto) % Eos % (Auto) % Baso % (Auto) % Neut # (Auto) (1.4-6.5) K/uL Lymph # (Auto) (1.2-3.4) K/uL [place] # (Auto) (0.11-0.59) K/uL Eos # (Auto) (0-0.5) K/uL Baso # (Auto) (0-0.2) K/uL Immature Gran # (Auto) (0.00-0.02) K/uL PT (9.0-12.0) Seconds INR (0.9-1.1) APTT (21.0-31.0) Seconds PTT Ratio Sodium (136-145) mmol/L Potassium (3.5-5.1) mmol/L Chloride (98-107) mmol/L Carbon Dioxide (21-32) mmol/L Anion Gap (3-11) BUN (7-18) mg/dl Creatinine (0.6-1.2) mg/dl Est Cr Clr Drug Dosing ml/min Est GFR ( Amer) Est GFR (Non-Af Amer) BUN/Creatinine Ratio (10-20) Glucose (70-99) mg/dl Calcium (8.5-10.1) mg/dl Total Bilirubin (0.2-1) mg/dl AST (15-37) U/L ALT (12-78) U/L Alkaline Phosphatase (45-117) U/L Troponin I (0-0.045) ng/ml Total Protein (6.4-8.2) gm/dl Albumin (3.4-5.0) gm/dl Globulin (2.5-4.0) gm/dl Albumin/Globulin Ratio (0.9-2) COVID-19 Eval Order CovFluRsv at [facility] SARS-CoV-2 (PCR) NEGATIVE (Negative) Hep Bs Antigen Neg (Neg) Influenza Type A (PCR) Negative (Neg) Influenza Type B (PCR) Negative (Neg) RSV (RT-PCR) Negative (Neg) Administered Medications Amlodipine Besylate (Amlodipine Besylate 5 Mg Tab) 10 mg PO [facility] Stop: 07/09/20 08:59 Last Admin: 06/10/20 13:28 Dose: 10 mg Documented by: [id number] Admin: 06/09/20 08:46 Dose: 10 mg Documented by: [id number] Aspirin (Aspirin 81 Mg Ectab) 81 mg PO [facility] Stop: 07/09/20 20:59 Last Admin: 06/09/20 21:28 Dose: 81 mg Documented by: [id number] Clopidogrel Bisulfate (Clopidogrel Bisulfate 75 Mg Tab) 75 mg PO [facility] Stop: 07/09/20 08:59 Last Admin: 06/10/20 13:28 Dose: 75 mg Documented by: [id number] Admin: 06/09/20 08:45 Dose: 75 mg Documented by: [id number] Exemestane (Exemestane 25mg Tablet) 1 ea PO DAILY@1200 COUNT INCLUDES THE [facility] Stop: 07/10/20 15:59 Last Admin: 06/10/20 16:40 Dose: 1 ea Documented by: [id number] Gabapentin (Gabapentin 100 Mg Cap) 200 mg PO [facility] Stop: 07/09/20 20:59 Last Admin: 06/09/20 21:28 Dose: 200 mg Documented by: [id number] Methylprednisolone 60 mg/ (Syringe) 0.96 mls @ 1.5 mls/min IV Q6H COUNT INCLUDES THE [facility] Stop: 07/09/20 11:59 Last Admin: 06/10/20 16:40 Dose: 1.5 mls/min Documented by: [id number] Admin: 06/10/20 11:04 Dose: 1.5 mls/min Documented by: [id number] Admin: 06/10/20 06:11 Dose: 1.5 mls/min Documented by: [id number] Admin: 06/09/20 23:54 Dose: 1.5 mls/min Documented by: [id number] Admin: 06/09/20 17:28 Dose: 1.5 mls/min Documented by: [id number] Admin: 06/09/20 13:06 Dose: 1.5 mls/min Documented by: [id number] Piperacillin Sod/Tazobactam (Sod 3.375 gm/ Dextrose) 115 mls @ 28.75 mls/hr IV Q12H COUNT INCLUDES THE [facility]; Protocol Stop: 06/16/20 19:59 Last Infusion: 06/10/20 13:44 Dose: 0 mls/hr Documented by: [id number] Admin: 06/10/20 09:33 Dose: 28.8 mls/hr Documented by: [id number] Infusion: 06/10/20 01:31 Dose: 0 mls/hr Documented by: [id number] Admin: 06/09/20 21:22 Dose: 28.8 mls/hr Documented by: [id number] Heparin Sodium/Dextrose (Heparin Sodium/Dextrose) 25,000 units in 500 mls @ 0 mls/hr IV .Q0M COUNT INCLUDES THE [facility]; Protocol Stop: 07/09/20 21:29 Last Titration: 06/10/20 06:02 Dose: 0 units/hr, 0 mls/hr Documented by: [id number] Cosigned by: [id number] Admin: 06/09/20 22:25 Dose: 850 units/hr, 17 mls/hr Documented by: [id number] Cosigned by: [id number] Isosorbide Mononitrate (Isosorbide [place] Extended Rel 30 Mg Tabcr) 30 mg PO DAILY@1200 [facility] Stop: 07/09/20 11:59 Last Admin: 06/10/20 13:28 Dose: 30 mg Documented by: [id number] Admin: 06/09/20 13:06 Dose: Not Given Documented by: [id number] Lansoprazole (Lansoprazole 30 Mg Soltab) 30 mg PO DAILY COUNT INCLUDES THE [facility] Stop: 07/09/20 08:59 Last Admin: 06/10/20 13:27 Dose: 30 mg Documented by: [id number] Admin: 06/09/20 08:45 Dose: 30 mg Documented by: [id number] Metoprolol Succinate (Metoprolol Succ 50mg Ext Rel Tab) 50 mg PO HS COUNT INCLUDES THE [facility] Stop: 07/09/20 20:59 Last Admin: 06/09/20 21:29 Dose: 50 mg Documented by: [id number] Ondansetron HCl (Ondansetron Inj 2 Mg/Ml 2 Ml Vial) 4 mg IV Q6H PRN PRN Reason: Nausea Stop: 07/09/20 07:36 Last Admin: 06/09/20 12:31 Dose: 4 mg Documented by: [id number] Rosuvastatin Calcium (Rosuvastatin Calcium 10 Mg Tab) 10 mg PO HS COUNT INCLUDES THE [facility] Stop: 07/09/20 20:59 Last Admin: 06/09/20 21:28 Dose: 10 mg Documented by: [id number] Tramadol HCl (Tramadol Hcl 50 Mg Tablet) 50 mg PO Q12 PRN PRN Reason: Pain Stop: 07/09/20 07:36 Last Admin: 06/09/20 21:38 Dose: 50 mg Documented by: [id number] Vitamin D (Cholecalciferol 1,000 Units 25 Mcg Tab) 2,000 units PO QAM COUNT INCLUDES THE [facility] Stop: 07/10/20 08:59 Last Admin: 06/10/20 13:28 Dose: 2,000 units Documented by: [id number] Discontinued Medications Albuterol (Albut/Ipratrop 3mg/0.5mg Neb 3 Ml Vial) 3 ml NEB QIDR COUNT INCLUDES THE [facility] Stop: 07/09/20 14:59 Last Admin: 06/10/20 07:05 Dose: Not Given Documented by: [id number] Admin: 06/09/20 19:14 Dose: 3 ml Documented by: [id number] Admin: 06/09/20 15:00 Dose: 3 ml Documented by: [id number] Fentanyl Citrate (Fentanyl Citrate 100 Mcg/2 Ml Vial) Confirm Administered Dose 100 mcg .ROUTE .STK-MED ONE Stop: 06/10/20 07:00 Last Admin: 06/10/20 09:34 Dose: Not Given Documented by: [id number] Heparin Sodium (Porcine) (Heparin Sod 5,000 Unit/0.5 Ml Vial) 5,000 units SQ Q12 COUNT INCLUDES THE [facility] Stop: 07/09/20 08:59 Last Admin: 06/09/20 21:34 Dose: 5,000 units Documented by: [id number] Admin: 06/09/20 10:48 Dose: 5,000 units Documented by: [id number] Heparin Sodium (Porcine) (Heparin Sod (Porcine) 1000 Unit/Ml 10 Ml Vial) 2,000 units IV ONE ONE Stop: 06/09/20 10:47 Last Admin: 06/09/20 15:46 Dose: Not Given Documented by: [id number] Heparin Sodium (Porcine) (Heparin Sod (Porcine) 1000 Unit/Ml 10 Ml Vial) 500 units IV Q1H COUNT INCLUDES THE [facility] Stop: 06/09/20 13:01 Last Admin: 06/09/20 17:55 Dose: Not Given Documented by: [id number] Admin: 06/09/20 17:28 Dose: Not Given Documented by: [id number] Admin: 06/09/20 15:47 Dose: Not Given Documented by: [id number] Heparin Sodium (Porcine) (Heparin (Porcine) 1000 Unit/Ml 10 Ml ([employer] Use Only)) Confirm Administered Dose 10,000 units .ROUTE .STK-MED ONE Stop: 06/10/20 08:02 Last Admin: 06/10/20 09:34 Dose: Not Given Documented by: [id number] Heparin Sodium/Dextrose (Heparin Iv Standard *No* Bolus) 1 ea IV Q15M COUNT INCLUDES THE [facility]; Protocol Stop: 07/09/20 21:21 Last Admin: 06/10/20 07:12 Dose: Not Given Documented by: [id number] Admin: 06/10/20 07:12 Dose: Not Given Documented by: [id number] Piperacillin Sod/Tazobactam (Sod 3.375 gm/ Dextrose) 115 mls @ 230 mls/hr IV NOW ONE; Protocol Stop: 06/09/20 12:29 Last Infusion: 06/09/20 14:06 Dose: 0 mls/hr Documented by: [id number] Admin: 06/09/20 13:06 Dose: 230 mls/hr Documented by: [id number] Midazolam HCl (Midazolam Hcl 5 Mg/Ml 1 Ml Vial) Confirm Administered Dose 5 mg .ROUTE .STK-MED ONE Stop: 06/10/20 07:00 Last Admin: 06/10/20 09:34 Dose: Not Given Documented by: [id number] Miscellaneous (*Exemestane*Order Awaiting Action) 1 ea N/A QS COUNT INCLUDES THE [facility] Stop: 07/09/20 07:59 Last Admin: 06/10/20 13:29 Dose: 1 ea Documented by: [id number] Admin: 06/09/20 23:55 Dose: Not Given Documented by: [id number] Admin: 06/09/20 14:58 Dose: Not Given Documented by: [id number] Admin: 06/09/20 07:59 Dose: Not Given Documented by: [id number] Nicardipine HCl (Nicardipine Hcl Inj 2.5 Mg/Ml 10 Ml Amp) Confirm Administered Dose 25 mg .ROUTE .STK-MED ONE Stop: 06/10/20 08:02 Last Admin: 06/10/20 09:34 Dose: Not Given Documented by: [id number] Nitroglycerin/Dextrose (Nitroglycerin/D5w 100mcg/Ml 20ml Syr) Confirm Administered Dose 2,000 mcg .ROUTE .STK-MED ONE Stop: 06/10/20 08:02 Last Admin: 06/10/20 09:34 Dose: Not Given Documented by: [id number] Discharge Plan Visit Data Chief Complaint: Respiratory Problems Stated Complaint: HARD TO BREATHE ED Provider: Maria De Jesus Alegria Discharge Problem: Pulmonary edema, Hypoxia Patient Disposition: Admitted As Inpatient Discharge Instructions Interventions: ED Discharge Assessment Last Done: 06/09/20 07:17 Discharge Problem: Pulmonary edema Qualifiers: Chronicity: acute Qualified Code(s): J81.0 - Acute pulmonary edema
--- NOTE | 2020-06-09 06:27 | History & Physical Report ---
Date of Service June 09, 2020 Assessment & Plan (1) Hypoxia: Saturations 80% on room air. Improved with supplemental O2. Most likely secondary to pulmonary edema - expect improvement after HD. Patient with no underlying lung disease. Does not use O2 at home -SUpplemental O2 -HD today Present on Admission?: Yes (2) GERD (gastroesophageal reflux disease): Chronic -Continue lansoprazole Present on Admission?: Yes (3) End stage renal disease: With volume overload. Patient is to have HD today -Renal consultation appreciated Present on Admission?: Yes (4) CAD (coronary artery disease): Chronic -Continue ASA, Plavix, Metoprolol Present on Admission?: Yes (5) Dyslipidemia: Chronic -Continue Crestor Present on Admission?: Yes (6) Hypertension: Chronic -Continue Metoprolol -Continue Amlodipine -Continue Isosorbide mononitrate -Continue to monitor Present on Admission?: Yes (7) Fibromyalgia: Chronic -Continue Gabapentin F/E/N - heplock. Electrolytes favorable. Renal diet Ppx - Heparin Code - DNR/DNI Dispo - Admit to medical Present on Admission?: Yes History of Present Illness Chief Complaint: shortness of breath Primary Care Provider: Johnny Rai MD Adriana Arnett is a pleasant 79yo female with history of ESRD on HD q M/W/ (started 5 months ago), AAA, HTN, HLP presenting with SOB. Patient reports waking from sleep last night feeling short of breath. She has had a moist cough as well as some nausea. Denies fever/chills/purulent sputum/CP/palpitations/diarrhea/constipation Had AV fistula placed by Dr. Diaz 2 weeks ago - surgery well tolerated Dry weight 110# She has received both Covid-19 vaccines - [employer] Allergies Allergy/AdvReac Type Severity Reaction Status Date / Time hydrocodone Allergy Intermediate RASH, HIVES Verified 06/09/20 04:23 Sulfa (Sulfonamide AdvReac Intermediate "SULFA Verified 06/09/20 04:23 Antibiotics) DRUGS": N/V spironolactone AdvReac Mild GI Verified 06/09/20 04:23 SYMPTOMS,NAUSEA AND VOMITING Aldactazide AdvReac Unknown GI Unverified 07/24/17 10:20 SYMPTOMS,NAUSEA AND VOMITING hydrochlorothiazide AdvReac Unknown GI Verified 06/09/20 04:23 SYMPTOMS,NAUSEA AND VOMITING Home Medications Medication Instructions Recorded Confirmed Type cholecalciferol (vitamin D3) 50 2,000 units PO QAM 10/16/18 06/09/20 History mcg (2,000 unit) capsule coenzyme Q10 200 mg capsule 200 mg PO QAM cap 10/31/18 06/09/20 History exemestane 25 mg tablet 25 mg PO DAILY@1200 tab 10/31/18 06/09/20 History aspirin [Enteric Coated Aspirin] 81 mg PO HS 01/23/19 06/09/20 History clopidogrel 75 mg tablet 75 mg PO QAM #90 tab 12/29/19 06/09/20 Rx metoprolol succinate 50 mg 50 mg PO HS #90 tab 01/16/20 06/09/20 Rx tablet,extended release 24 hr amlodipine 10 mg PO QAM 02/27/20 06/09/20 History gabapentin 100 mg capsule 200 mg PO HS cap 04/01/20 06/09/20 History isosorbide mononitrate 60 mg 30 mg PO DAILY@1200 tab 04/01/20 06/09/20 History tablet,extended release 24 hr rosuvastatin 10 mg tablet 10 mg PO HS #90 tab 04/08/20 06/09/20 Rx lansoprazole 30 mg capsule,delayed 30 mg PO DAILY #30 cap 06/03/20 06/09/20 Rx release ondansetron 4 mg disintegrating 4 mg PO Q6H PRN #90 tab 06/03/20 06/09/20 Rx tablet tramadol 50 mg tablet 50 mg PO Q12 PRN #60 tab 06/04/20 06/09/20 Rx Past Med/Surg History Medical History AAA (abdominal aortic aneurysm) PCP monitoring. "Mild fusiform aneurysmal dilatation of the distal thoracic and abdominal aorta." per 02/27/[address] CAD (coronary artery disease) Severe multivessel coronary artery diseaseoccluded distal right, occluded distal circumflex, 90% focal stenosis in mid circumflex into OM1 - follows with Dr. Pfeiffer Degenerative joint disease, multiple joints on both sides of body Dyslipidemia ESRD (end stage renal disease) on dialysis started dialysis 12/2019 - [facility] - [facility] - follows with Dr. Marky staley Fibromyalgia GERD (gastroesophageal reflux disease) History of breast cancer Lt lumpectomy/chemo/radiation 2017 History of myocardial infarction silent -- informed in 2018 of evidence of previous [place] History of skin cancer removed History of stent insertion of renal artery Lt History of ulcerative colitis Hypertension Osteoarthritis PAD (peripheral artery disease) Peripheral neuropathy Right renal artery stenosis h/o failed attempt to stent Rt renal artery per pt - atheroemboli to her feet and kidneys Spinal stenosis Surgical History History of anesthesia reaction "easy to put out and hard to wake up" History of breast biopsy History of cardiac catheterization 2018 [place] -abn stress test - no stents History of colectomy No colostomy, anastamosis of small bowel. History of colonoscopy History of esophagogastroduodenoscopy (EGD) History of lumpectomy of left breast History of vascular access device temporary dialysis catheter to Rt chest History of vascular surgery 03/22/2020 DR Pfeiffer [facility] stents to BLLE Family History Mother Colon cancer Cardiac disorder Hypertension Father Colon cancer Cardiac disorder Cancer Family/Other Coronary arteriosclerosis Other No family history of adverse response to anesthesia Social History Smoking Status: Never smoker Second Hand Exposure: Yes (hx); Hx Alcohol Use: No Hx Substance Use: No Preferred Language: Icelandic Communication Ability: Effective Slag [employer] Worker Required: No Beliefs That Will Affect Care: None marital status: Current Living Situation: Spouse current occupational status: retired How many Children do You have: 1 How many Children do You have Comment: not local. able to assist with care as needed. Feels Safe at Home: Yes Diet Comment: renal diet during the past year weight has: decreased > 10 lbs Assistive Devices: Denture - Upper and Glasses Review of Systems Review of Systems: All systems reviewed & are unremarkable except as noted in HPI & below Physical Exam Physical Exam: General: patient resting comfortably, NAD, non-toxic in appearance, AA&O x 4 Skin: warm, dry, no rashes or lesions HEENT: NC/AT, PERRL, EOMI, anicteric sclera, conjunctiva without injection, external ear normal to inspection and nontender, nares patent, dry mucus membranes, dentition intact, no oropharyngeal lesions, neck supple, trachea midline, no LAD, no thyromegaly, no JVD Heart: +S1/S2, regular, no m/r/g. Right chest perm cath in place - nontender Lungs: equal air entry bilaterally, +crackles to mid-lung torres bilaterally, L>R Abd: +BS, soft, NT/ND, no masses/organomegaly/ascites Ext: warm, 2+ pulses in UE/LE bilaterally, no clubbing/cyanosis or edema, LUE AV fistula with ketty in place. No erythema, drainage, dehiscence. Neuro: nonfocal, patient AA&O x 4, speech intact, no facial droop, moving all extremities on command with equal strength 5/5 Results & Data Results & Data ([facility] [place]) Vital Signs (Past 12 Hours) Vital Signs Temp Pulse Resp BP Pulse Ox 06/09/20 05:30 91 H 22 125/80 92 06/09/20 05:00 93 H 20 123/77 100 06/09/20 04:30 91 H 24 131/79 97 06/09/20 03:53 82 L 06/09/20 03:50 82 L 06/09/20 03:35 36.8 C 102 H 24 146/89 H 93 Laboratory Results Lab Results 06/09/20 06/09/20 06/09/20 Range/Units 04:00 04:00 04:00 WBC 15.88 H (4.8-10.8) K/uL RBC 3.16 L (4.2-5.4) M/uL Hgb 10.3 L (12.0-16.0) g/dL Hct 31.5 L (37-47) % MCV 99.7 (80-100) fL MCH 32.6 (25-34) pg MCHC 32.7 (32-36) g/dL RDW Std Deviation 55.8 H (36.4-46.3) fL RDW Coeff of Max 15.4 H (11.5-14.5) % Plt Count 276 (130-400) K/uL MPV 10.1 (7.4-10.4) fL Immature Gran % (Auto) 0.3 % Neut % (Auto) 74.7 % Lymph % (Auto) 13.4 % [place] % (Auto) 6.2 % Eos % (Auto) 5.0 % Baso % (Auto) 0.4 % Neut # (Auto) 11.88 H (1.4-6.5) K/uL Lymph # (Auto) 2.12 (1.2-3.4) K/uL [place] # (Auto) 0.98 H (0.11-0.59) K/uL Eos # (Auto) 0.80 H (0-0.5) K/uL Baso # (Auto) 0.06 (0-0.2) K/uL Immature Gran # (Auto) 0.04 H (0.00-0.02) K/uL PT 10.8 (9.0-12.0) Seconds INR 1.1 (0.9-1.1) APTT 23.6 (21.0-31.0) Seconds PTT Ratio 0.9 Sodium 133 L (136-145) mmol/L Potassium 4.6 (3.5-5.1) mmol/L Chloride 95 L (98-107) mmol/L Carbon Dioxide 28 (21-32) mmol/L Anion Gap 10.0 (3-11) BUN 30 H (7-18) mg/dl Creatinine 6.81 H* (0.6-1.2) mg/dl Est Cr Clr Drug Dosing 4.7 ml/min Est GFR ( Amer) 6.0 Est GFR (Non-Af Amer) 5.2 BUN/Creatinine Ratio 4.3 L (10-20) Glucose 105 H (70-99) mg/dl Calcium 9.5 (8.5-10.1) mg/dl Total Bilirubin 0.7 (0.2-1) mg/dl AST 20 (15-37) U/L ALT 9 L (12-78) U/L Alkaline Phosphatase 70 (45-117) U/L Troponin I 0.165 H* (0-0.045) ng/ml Total Protein 8.8 H (6.4-8.2) gm/dl Albumin 3.6 (3.4-5.0) gm/dl Globulin 5.2 H (2.5-4.0) gm/dl Albumin/Globulin Ratio 0.7 L (0.9-2) COVID-19 Eval Order 06/09/20 Range/Units 05:56 WBC (4.8-10.8) K/uL RBC (4.2-5.4) M/uL Hgb (12.0-16.0) g/dL Hct (37-47) % MCV (80-100) fL MCH (25-34) pg MCHC (32-36) g/dL RDW Std Deviation (36.4-46.3) fL RDW Coeff of Max (11.5-14.5) % Plt Count (130-400) K/uL MPV (7.4-10.4) fL Immature Gran % (Auto) % Neut % (Auto) % Lymph % (Auto) % [place] % (Auto) % Eos % (Auto) % Baso % (Auto) % Neut # (Auto) (1.4-6.5) K/uL Lymph # (Auto) (1.2-3.4) K/uL [place] # (Auto) (0.11-0.59) K/uL Eos # (Auto) (0-0.5) K/uL Baso # (Auto) (0-0.2) K/uL Immature Gran # (Auto) (0.00-0.02) K/uL PT (9.0-12.0) Seconds INR (0.9-1.1) APTT (21.0-31.0) Seconds PTT Ratio Sodium (136-145) mmol/L Potassium (3.5-5.1) mmol/L Chloride (98-107) mmol/L Carbon Dioxide (21-32) mmol/L Anion Gap (3-11) BUN (7-18) mg/dl Creatinine (0.6-1.2) mg/dl Est Cr Clr Drug Dosing ml/min Est GFR ( Amer) Est GFR (Non-Af Amer) BUN/Creatinine Ratio (10-20) Glucose (70-99) mg/dl Calcium (8.5-10.1) mg/dl Total Bilirubin (0.2-1) mg/dl AST (15-37) U/L ALT (12-78) U/L Alkaline Phosphatase (45-117) U/L Troponin I (0-0.045) ng/ml Total Protein (6.4-8.2) gm/dl Albumin (3.4-5.0) gm/dl Globulin (2.5-4.0) gm/dl Albumin/Globulin Ratio (0.9-2) COVID-19 Eval Order CovFluRsv at [facility] Code Status & VTE Plan VTE Prophylaxis Plan VTE Prophylaxis will be ordered: No PG Care Time/CCT Total # of Minutes Spent Total Time Spent with Patient: Total time spent is greater than 50% in coordination of care (as documented) at patient's floor/unit and/or counseling patient: Coding Level of Care Code 23067 Initial Inpt Care Lvl 3 Diagnoses Hypoxia R09.02 GERD (gastroesophageal reflux disease) K21.9 Esophagitis presence: esophagitis presence not specified End stage renal disease N18.6 CAD (coronary artery disease) I25.10 Coronary Disease-Associated Artery/Lesion type: [place] artery [place] vs. transplanted heart: [place] heart Associated angina: without angina Dyslipidemia E78.5 Hypertension I15.0 Hypertension type: renovascular hypertension Fibromyalgia M79.7 (1) GERD (gastroesophageal reflux disease) Esophagitis presence: esophagitis presence not specified Qualified Code(s): K21.9 - Gastro-esophageal reflux disease without esophagitis (2) Hypertension Hypertension type: renovascular hypertension Qualified Code(s): I15.0 - Renovascular hypertension (3) CAD (coronary artery disease) Coronary Disease-Associated Artery/Lesion type: [place] artery [place] vs. transplanted heart: [place] heart Associated angina: without angina Qualified Code(s): I25.10 - Atherosclerotic heart disease of [place] coronary artery without angina pectoris
[2020-06-09 06:43] LABS: Influenza A virus by PCR Negative (Neg); Influenza B virus by PCR Negative (Neg); RSV by PCR Negative (Neg); SARS CoV2 RNA(COVID-19) InHosp NEGATIVE (Negative)
[2020-06-09] MEDS ORDERED: ONDANSETRON INJ 2 MG/ML 2 ML VIAL IV PRN (07:37)
[2020-06-09] MEDS ORDERED: ACETAMINOPHEN 325 MG TAB PO PRN (07:37)
[2020-06-09] MEDS ORDERED: ONDANSETRON 4 MG OD TAB PO PRN (07:53)
--- NOTE | 2020-06-09 07:55 | XRay Report ---
XR chest 1V portable HISTORY: Dyspnea COMPARISON: Chest 02/27/2020. FINDINGS: No pneumothorax. Trace left pleural effusion. The heart is top normal in size. There is a r ight jugular catheter which terminates at the superior cavoatrial junction. Hazy perihilar airspace o pacities and interstitial thickening. There is prominence of the AP window. IMPRESSION: 1. Perihilar hazy airspace opacities with interstitial thickening. This favors pulmonary edema. A vir al pneumonia could also have a similar appearance. 2. Progressive thickening at the AP window which could be due to patient rotation. PA and lateral vie ws of the chest are recommended once the patient's suspected pulmonary edema has resolved for further evaluation. ACT 112: Negative or not required by law. Electronically signed by: Chris Nava M.D. 06/09/2020 7:53 AM
[2020-06-09] MEDS: LANSOPRAZOLE 30 MG SOLTAB PO SCH (08:45)
[2020-06-09] MEDS: CLOPIDOGREL BISULFATE 75 MG TAB PO SCH (08:45)
[2020-06-09] MEDS: amLODIPine BESYLATE 5 MG TAB PO SCH (08:46)
[2020-06-09] MEDS ORDERED: NON-FORMULARY MEDICATION (Coenzyme Q10 200 mg capsule) PO SCH (09:00)
--- NOTE | 2020-06-09 10:39 | Nephrology Consultation ---
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 This occurred after an angiogram and attempted angioplasty of her right renal artery in the late summer 2019. She has ischemic changes in her toes and has developed end-stage renal disease. She has been on dialysis since January 122019. She has generalized atherosclerotic cardiovascular disease. She has a history of significant coronary artery disease. She now presents with acute shortness of breath. It is associated with some symptoms of nausea and heartburn as well as mid scapular pain. Her troponin is minimally elevated. Her physical exam and chest x-ray is consistent with marked volume overload and pulmonary edema. Will arrange for her dialysis. However, given her history of coronary disease and her slight elevation of her troponin I am concerned that with her symptoms which may have been accelerating over the course of the past week that she might have an acute coronary syndrome that produced her current volume overload and shortness of breath. Although at troponin of 0.165 would not necessarily be unusual for a patient with end-stage renal disease, until we show that there has been no sequential change in her troponins and/or an echocardiogram is shown to be stable I think that she should be in a monitored bed particularly during her dialysis treatment. I will speak to the hospitalist involved with her care and make arrangements for her dialysis treatment with the staff. She will continue with all of her outpatient medications for now and continue with her renal diet. (2) CAD (coronary artery disease): (3) Shortness of breath: (4) Volume overload: History of Present Illness Attending Physician: I was asked to see Mrs. Arnett for assistance in the management of her end-stage renal disease and acute shortness of breath. I have followed Mrs. Arnett since 2011. She was initially referred to me by Dr. Johnny Rai because of concern about renal artery stenosis. She had been hospitalized at the [facility] with an episode of chest discomfort. She had a negative stress test. Her evaluation included a CT angiogram of her chest, abdomen and pelvis. That was unremarkable with the exception of chronic atherosclerotic vascular disease and a tight left renal artery stenosis. I referred her to the [facility] where she underwent an angiogram of her renal arteries. A tight stenosis of her left renal artery was confirmed and she underwent an angioplasty and the deployment of a drug-eluting stent. She has been on aspirin and clopidogrel since that time and had done reasonably well. Her blood pressure was controlled. Her serum creatinine, however, remains somewhat elevated in the range of about 1.5 mg/Dorene. She did have follow-up renal artery duplex scans which showed no evidence of recurrent renal artery stenosis on either side., Her serum creatinine jumped from about 1.45-2.41. A repeat duplex scan of her renal arteries were done and appeared to be unchanged. Her urinalysis was unremarkable with no proteinuria and a normal urinary sediment. A DTPA renal scan at that time showed symmetrical tracer accumulation and excretion. No changes were made in her regimen. In December 2017, she had a dobutamine stress echocardiogram. That showed a baseline echo with normal left ventricular function and proximal inferior and inferoseptal wall motion abnormalities. She had a negative dobutamine stress echo for ischemia at greater than 100% of her maximum heart rate. A cardiac catheterization was done on January 222017 and that showed significant luminal irregularities. Her left anterior descending artery had 20 to 30% diffuse proximal disease and a 30 to 40% late mid stenosis after a small second diagonal. Her circumflex showed a large caliber vessel with an 80 to 90% early mid stenosis prior to the takeoff of a large OM1. The OM1 had a 50 to 60% proximal disease. The mid circumflex was 100% occluded after the OM1 and filled distally via collaterals. Her RCA was a moderate caliber vessel with 40 to 50% mid stenosis and late mid chronic occlusion with collaterals. At the time, metoprolol was added to her regimen by cardiology. She was felt not to be a surgical candidate. Subsequently, she complained about a decrease in her exercise tolerance particularly while attempting to ride her bike. That has been present over the course of several months. There was concern that it represented angina pectoris and a progression of her previously recognized coronary disease. However, Mrs. Arnett felt that her symptoms might have been related to the metoprolol. Therefore, her metoprolol was tapered by cardiology and subsequently disconti nued completely. Her dyspnea on exertion improved. She was also taking isosorbide mononitrate at that time. She has a longstanding history of hypertension but that has been well controlled. She was following a low-sodium diet. She was taking isosorbide as noted. She had also been taking losartan 25 mg daily since her original renal artery angioplasty. Even on losartan, her serum creatinine had been stable in the range of about 1.5 to 1.8 mg/Dorene. With the above vascular issues, and she had recognized renal insufficiency as noted above. Again, as noted, her urinalysis was normal. She denied symptoms of uremia or volume overload. Her renal function remained stable. Other vascular risk factors included a history of hypercholesterolemia that had been controlled with rosuvastatin 10 mg taken at bedtime. She was also taking coenzyme every 10 200 mg daily. In 2019, she had a further jump in her serum creatinine. A repeat renal artery duplex showed evidence of a right renal artery stenosis. She was referred back to [place]. A CO2 angiogram was attempted. However, the right renal artery could not be entered. It appeared to be dramatically occluded. During the procedure, she developed severe mid low back pain, weakness and nausea. The procedure was discontinued but she felt poorly subsequently. Her serum creatinine began to rise. She was noted to have ischemic changes in her toes. It was felt that her clinical picture was consistent with atheroembolic disease. Her renal function did not recover. She was begun on maintenance dialysis in December 2019. Her vascular access has been a tunneled hemodialysis catheter in her right internal jugular. Recently, she did have the creation of an AV fistula in her right upper arm. She has had some swelling and ecchymoses of her right upper arm. [place] remain in place. The fistula does seem to be functional but not ready for use. Her dialysis treatments have been unremarkable and well-tolerated. Over the course of the past several months, her toes have improved. The pain in her toes has resolved although she did have continued ischemic changes of several of the toes on each foot. Although she had improved considerably, during the course of the past few days she has noted an increase problem of pain in the great toe and second toe of her right foot and they now appear to be ischemic to her. She has regularly been seen by GI. She has a history of symptoms of GERD. They have been controlled with pantoprazole although recently she was changed to lansoprazole because she felt that the pantoprazole was no longer working to control symptoms of nausea. She also uses Zofran for occasional periods of nausea. She says that she has been slightly more nauseated over the course of the past week. She has had no chest pain. She had no wheezing. She did not complain of any additional shortness of breath in the dialysis unit and her predialysis assessments had been stable. Last evening, after dinner she once again noted nausea. However, she said that this was similar to the nausea that she has had in the past. Initially, she denied having any chest or back discomfort. She took a pantoprazole and went to bed. However, at about 12:30 AM she was awakened by shortness of breath. Initially, she had no other symptoms. Her became increasingly concerned because of the noise she was making with breathing. She began to complain of some nausea and heartburn. She also experienced some mid scapular pain which she said that she has had before. She felt that she had to vomit. She was not diaphoretic. Her took her to the emergency room. In the emergency room she vomited. Her emergency room evaluation was consistent with significant volume overload. She had a minimal increase in her serum troponin. Her EKG was apparently stable. She was admitted for further care. With oxygen, her symptoms of shortness of breath have improved. She continues to complain of some discomfort in her toes. She also complains of a fullness in her abdomen particularly on the left side. She says that that has been present for the past several weeks. Her other significant medical problem is 1 of breast cancer. That seems to be inactive at the current time and she is followed by oncology. She continues on exemestane 25 mg daily. Her review of systems is otherwise unremarkable. Allergies Allergy/AdvReac Type Severity Reaction Status Date / Time hydrocodone Allergy Intermediate RASH, HIVES Verified 06/09/20 04:23 Sulfa (Sulfonamide AdvReac Intermediate "SULFA Verified 06/09/20 04:23 Antibiotics) DRUGS": N/V spironolactone AdvReac Mild GI Verified 06/09/20 04:23 SYMPTOMS,NAUSEA AND VOMITING Aldactazide AdvReac Unknown GI Unverified 07/24/17 10:20 SYMPTOMS,NAUSEA AND VOMITING hydrochlorothiazide AdvReac Unknown GI Verified 06/09/20 04:23 SYMPTOMS,NAUSEA AND VOMITING Home Medications Medication Instructions Recorded Confirmed Type cholecalciferol (vitamin D3) 50 2,000 units PO QAM 10/16/18 06/09/20 History mcg (2,000 unit) capsule coenzyme Q10 200 mg capsule 200 mg PO QAM cap 10/31/18 06/09/20 History exemestane 25 mg tablet 25 mg PO DAILY@1200 tab 10/31/18 06/09/20 History aspirin [Enteric Coated Aspirin] 81 mg PO HS 01/23/19 06/09/20 History clopidogrel 75 mg tablet 75 mg PO QAM #90 tab 12/29/19 06/09/20 Rx metoprolol succinate 50 mg 50 mg PO HS #90 tab 01/16/20 06/09/20 Rx tablet,extended release 24 hr amlodipine 10 mg PO QAM 02/27/20 06/09/20 History gabapentin 100 mg capsule 200 mg PO HS cap 04/01/20 06/09/20 History isosorbide mononitrate 60 mg 30 mg PO DAILY@1200 tab 04/01/20 06/09/20 History tablet,extended release 24 hr rosuvastatin 10 mg tablet 10 mg PO HS #90 tab 04/08/20 06/09/20 Rx lansoprazole 30 mg capsule,delayed 30 mg PO DAILY #30 cap 06/03/20 06/09/20 Rx release ondansetron 4 mg disintegrating 4 mg PO Q6H PRN #90 tab 06/03/20 06/09/20 Rx tablet tramadol 50 mg tablet 50 mg PO Q12 PRN #60 tab 06/04/20 06/09/20 Rx Patient History Medical History (Updated 06/09/20 @ 10:33 by Terrance Kaur MD) AAA (abdominal aortic aneurysm) PCP monitoring. "Mild fusiform aneurysmal dilatation of the distal thoracic and abdominal aorta." per 02/27/[address] CAD (coronary artery disease) Severe multivessel coronary artery diseaseoccluded distal right, occluded distal circumflex, 90% focal stenosis in mid circumflex into OM1 - follows with Dr. Pfeiffer Degenerative joint disease, multiple joints on both sides of body Dyslipidemia ESRD (end stage renal disease) on dialysis started dialysis 12/2019 - [facility] - follows with Dr. Kaur Fibromyalgia GERD (gastroesophageal reflux disease) History of breast cancer Lt lumpectomy/chemo/radiation 2016 History of myocardial infarction silent -- informed in 2018 of evidence of previous NV History of skin cancer removed History of stent insertion of renal artery Lt History of ulcerative colitis Hypertension Osteoarthritis PAD (peripheral artery disease) Peripheral neuropathy Right renal artery stenosis h/o failed attempt to stent Rt renal artery per pt - atheroemboli to her feet and kidneys Spinal stenosis Surgical History History of anesthesia reaction "easy to put out and hard to wake up" History of breast biopsy History of cardiac catheterization 2017 [place] -abn stress test - no stents History of colectomy No colostomy, anastamosis of small bowel. History of colonoscopy History of esophagogastroduodenoscopy (EGD) History of lumpectomy of left breast History of vascular access device temporary dialysis catheter to Rt chest History of vascular surgery 03/22/2020 DR Pfeiffer [facility] stents to BLLE Family History Mother Colon cancer Cardiac disorder Hypertension Father Colon cancer Cardiac disorder Cancer Family/Other Coronary arteriosclerosis Other No family history of adverse response to anesthesia Social History Smoking Status: Never smoker Second Hand Exposure: Yes (hx); Hx Alcohol Use: No Hx Substance Use: No Preferred Language: Palau[place] Communication Ability: Effective 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 able to assist with care as needed. Feels Safe at Home: Yes Diet Comment: renal diet during the past year weight has: decreased > 10 lbs Assistive Devices: Denture - Upper and Glasses Physical Exam Physical Exam: On physical examination, Mrs. Arnett appears as a chronically ill woman of about her stated age of 79. She was lying comfortably in bed but oxygen was being administered via nasal cannula. Her blood pressure is 110/76 with a pulse of 85 and regular. Her respiratory rate is 18 and her oxygen saturation 97%. She is afebrile with a temperature of 36.7 degrees. Her skin shows some changes of alopecia on her head related to prior chemotherapy for breast cancer. Her skin turgor is normal. She does have ischemic changes of se veral toes on her right foot. She has more acute ischemic changes of the first and second toe of the right foot. Scabs are noted on the third and fifth toes of the right foot. On the left foot, she has scabs on the second and fourth toe. There is no palpable lymphadenopathy or evidence of lymphangitis. Her head is normal other than her partial alopecia. Eyes are grossly normal. The ocular fundi were not examined. Ears, nose, mouth and throat are all unremarkable. Her oral mucous membranes are moist. Her neck is supple. She has obvious jugular venous distention to about the angle of the jaw at 45 degrees on both sides. I do not hear a definite carotid bruit. She has no thyromegaly. Her chest shows bibasilar rales a bit more prominent on the left than on the right. Cardiac exam shows a regular rhythm. S1 and S2 are normal. She has a systolic ejection murmur along the left sternal border radiating to both the base and the apex. Her abdomen is nontender. She has no organomegaly or mass. There is no CVA tenderness. She has no tenderness over the dorsal spine. I hear no abdominal or flank bruits. Extremities show the ischemic changes noted above. There is no clubbing. She has no peripheral edema. Peripheral pulses are diminished in her feet. I do not hear bruits over the femoral arteries. She has postoperative changes of her right upper arm. Mo are in place. There is swelling and ecchymoses. She does have a palpable pulse and thrill and an audible bruit over the fistula. Her neurologic exam shows no focal or lateralizing changes. Results & Data ([facility]) Vital Signs (Past 12 Hours) Vital Signs Temp Pulse Pulse Resp BP BP Pulse Ox 06/09/20 07:37 36.7 C 85 18 110/76 97 06/09/20 06:54 88 20 115/77 90 06/09/20 06:30 90 24 115/77 92 06/09/20 06:00 93 H 16 128/71 94 06/09/20 05:30 91 H 22 125/80 92 06/09/20 05:00 93 H 20 123/77 100 06/09/20 04:30 91 H 24 131/79 97 06/09/20 03:53 82 L 06/09/20 03:50 82 L 06/09/20 03:35 36.8 C 102 H 24 146/89 H 93 Laboratory Results Laboratory Results - last 24 hr 06/09/20 06/09/20 06/09/20 04:00 04:00 04:00 WBC 15.88 H RBC 3.16 L Hgb 10.3 L Hct 31.5 L MCV 99.7 MCH 32.6 MCHC 32.7 RDW Std Deviation 55.8 H RDW Coeff of Max 15.4 H Plt Count 276 MPV 10.1 Immature Gran % (Auto) 0.3 Neut % (Auto) 74.7 Lymph % (Auto) 13.4 [place] % (Auto) 6.2 Eos % (Auto) 5.0 Baso % (Auto) 0.4 Neut # (Auto) 11.88 H Lymph # (Auto) 2.12 [place] # (Auto) 0.98 H Eos # (Auto) 0.80 H Baso # (Auto) 0.06 Immature Gran # (Auto) 0.04 H PT 10.8 INR 1.1 APTT 23.6 PTT Ratio 0.9 Sodium 133 L Potassium 4.6 Chloride 95 L Carbon Dioxide 28 Anion Gap 10.0 BUN 30 H Creatinine 6.81 H* Est Cr Clr Drug Dosing 4.7 Est GFR ( Amer) 6.0 Est GFR (Non-Af Amer) 5.2 BUN/Creatinine Ratio 4.3 L Glucose 105 H Calcium 9.5 Total Bilirubin 0.7 AST 20 ALT 9 L Alkaline Phosphatase 70 Troponin I 0.165 H* Total Protein 8.8 H Albumin 3.6 Globulin 5.2 H Albumin/Globulin Ratio 0.7 L COVID-19 Eval Order SARS-CoV-2 (PCR) Hep Bs Antigen Influenza Type A (PCR) Influenza Type B (PCR) RSV (RT-PCR) 06/09/20 06/09/20 06/09/20 04:00 05:56 05:56 WBC RBC Hgb Hct MCV MCH MCHC RDW Std Deviation RDW Coeff of Max Plt Count MPV Immature Gran % (Auto) Neut % (Auto) Lymph % (Auto) [place] % (Auto) Eos % (Auto) Baso % (Auto) Neut # (Auto) Lymph # (Auto) [place] # (Auto) Eos # (Auto) Baso # (Auto) Immature Gran # (Auto) PT INR APTT PTT Ratio Sodium Potassium Chloride Carbon Dioxide Anion Gap BUN Creatinine Est Cr Clr Drug Dosing Est GFR ( Amer) Est GFR (Non-Af Amer) BUN/Creatinine Ratio Glucose Calcium Total Bilirubin AST ALT Alkaline Phosphatase Troponin I Total Protein Albumin Globulin Albumin/Globulin Ratio COVID-19 Eval Order CovFluRsv at [facility] SARS-CoV-2 (PCR) NEGATIVE Hep Bs Antigen Neg Influenza Type A (PCR) Negative Influenza Type B (PCR) Negative RSV (RT-PCR) Negative PG Care Time/CCT Total # of Minutes Spent Total Time Spent with Patient: Total time spent is greater than 50% in coordination of care (as documented) at patient's floor/unit and/or counseling patient: 65 minutes Coding Level of Care Code 21237 Inpt Consult Level 5 Diagnoses End stage renal disease N18.6 CAD (coronary artery disease) I25.10 Coronary Disease-Associated Artery/Lesion type: [place] artery [place] vs. transplanted heart: [place] heart Associated angina: without angina Shortness of breath R06.02 Volume overload E87.70 Time Spent (min) 65 (1) CAD (coronary artery disease) Coronary Disease-Associated Artery/Lesion type: [place] artery [place] vs. transplanted heart: [place] heart Associated angina: without angina Qualified Code(s): I25.10 - Atherosclerotic heart disease of [place] coronary artery without angina pectoris
[2020-06-09] MEDS ORDERED: SODIUM CHLORIDE 0.9% 1000ML 1,000 ML IV PRN (10:46)
[2020-06-09] MEDS ORDERED: HEPARIN SOD (PORCINE) 1000 UNIT/ML IV ONE (10:46)
[2020-06-09] MEDS: HEPARIN SOD 5,000 UNIT/0.5 ML VIAL SQ SCH ×2 (10:48→21:34)
[2020-06-09] MEDS ORDERED: PIPERACILL/TAZOBAC CONSULT ACTIVE PRN (11:38)
[2020-06-09] MEDS ORDERED: PIPERACILLIN/TAZOBACTAM 3.375 GM in DEXTROSE 5% 100 ML IV ONE (12:00)
[2020-06-09] MEDS: ISOSORBIDE MONO EXTENDED REL 30 MG TABCR PO SCH (13:06)
[2020-06-09] MEDS: methylPREDNISolone 60 MG in SYRINGE 0 ML IV SCH ×3 (13:06→23:54)
--- NOTE | 2020-06-09 13:17 | Surgery Progress Note ---
Date of Service June 09, 2020 Assessment & Plan (1) ESRD (end stage renal disease) on dialysis: Pt now POD # 7 after RUE AV graft placement, with edema of distal incision. Will order RUE dialysis access US to eval for possible pseudoaneurysm. Admission and Anticipated Discharge Date Admission Date: June 09, 2020 Subjective 79 yo f POD #7 after RUE prosthetic AV graft placement, seen in f/u today. Pt admits SOB and PETTIT and her RUE feels swollen. Denies other new complaints. Review of Systems Review of Systems: All systems reviewed & are unremarkable except as noted in HPI & below Physical Exam Constitutional: WD/WN, vitals as above + ill appearing and + frail appearing; not in distress Cardiovascular: Extremities: normal capillary refill, + edema (RUE, increased near distal incision.) and + AV fistula (RUE + bruit, thrill) Skin: + incision (RUE incisions C/D/I) Results & Data ([facility]) Vital Signs (Past 12 Hours) Vital Signs Temp Pulse Pulse Resp BP BP Pulse Ox 06/09/20 12:09 36.8 C 91 H 18 119/75 90 06/09/20 07:37 36.7 C 85 18 110/76 97 06/09/20 06:54 88 20 115/77 90 06/09/20 06:30 90 24 115/77 92 06/09/20 06:00 93 H 16 128/71 94 06/09/20 05:30 91 H 22 125/80 92 06/09/20 05:00 93 H 20 123/77 100 06/09/20 04:30 91 H 24 131/79 97 06/09/20 03:53 82 L 06/09/20 03:50 82 L 06/09/20 03:35 36.8 C 102 H 24 146/89 H 93
--- NOTE | 2020-06-09 13:37 | XCELERA ---
[id number]
--- NOTE | 2020-06-09 13:39 | Hospitalist Progress Note ---
Date of Service June 09, 2020 Assessment & Plan (1) Acute respiratory failure: With hypoxia. Due to what appears to be aspiration into the lower respiratory tract with possible associated bilateral pneumonitis. Underlying acute pulmonary edema from fluid overload. Will need to treat both. Continue oxygen supplementation to maintain saturations greater than 90% Present on Admission?: Yes (2) Aspiration into lower respiratory tract: She may be developing bilateral pneumonitis in addition to the acute pulmonary edema. Parenteral steroids ordered along with nebulizer treatments and Zosyn. Serial chest x-ray. Duo nebs. Present on Admission?: Yes (3) Pulmonary edema: Due to fluid overload. Nephrology consultation appreciated. Hemodialysis to relieve excess fluid. Serial chest x-ray Present on Admission?: Yes (4) Troponin level elevated: May simply be due to end-stage renal disease but she did have some mid back pain which is concerning. Will trend troponins and obtain cardiac echo. Telemetry. Consult cardiology Present on Admission?: Yes (5) End stage renal disease: With volume overload. Patient is to have HD today -Renal consultation appreciated (6) CAD (coronary artery disease): Chronic -Continue ASA, Plavix, Metoprolol (7) Dyslipidemia: Chronic -Continue Crestor (8) GERD (gastroesophageal reflux disease): Chronic -Continue lansoprazole (9) Fibromyalgia: Chronic -Continue Gabapentin Ppx - Heparin sq Code - DNR/DNI Dispo -to be determined (10) Hypertension: Chronic -Continue Metoprolol -Continue Amlodipine -Continue Isosorbide mononitrate -Continue to monitor Admission and Anticipated Discharge Date Admission Date: June 09, 2020 Subjective Alert but with audible rhonchi. It appears to me that she has aspirated somewhere along the line but probably also has underlying pulmonary edema. Oxygen requirements have increased since admission. Will add parenteral steroids along with nebulizer treatments and Zosyn. She is transfer to a telemetry bed. Case discussed with nephrology. Hemodialysis as soon as possible to alleviate pulmonary edema. Review of Systems Review of Systems: All systems reviewed & are unremarkable except as noted in HPI & below Physical Exam Physical Exam: General-alert and oriented x3, no fevers, no chills HEENT-head atraumatic and normocephalic, TMs intact bilaterally, pupils equal and reactive to light, extraocular muscles intact Neck-no lymphadenopathy or thyromegaly, trachea midline Chest-diffuse bilateral inspiratory and expiratory rhonchi Cardiac-regular rate and rhythm, normal S1 and S2, no murmurs Abdomen-normal bowel sounds, nontender, no hepatosplenomegaly Extremities-no cyanosis, clubbing, or edema Neuro-cranial nerves II through XII intact, motor and sensory function within normal limits, strength symmetrical , no focal deficits Psych-normal affect, normal mood Results & Data Results & Data ([facility]) Vital Signs (Past 12 Hours) Vital Signs Temp Pulse Pulse Resp BP BP Pulse Ox 06/09/20 13:05 96 H 30 H 93 06/09/20 12:09 36.8 C 91 H 18 119/75 90 06/09/20 07:37 36.7 C 85 18 110/76 97 06/09/20 06:54 88 20 115/77 90 06/09/20 06:30 90 24 115/77 92 06/09/20 06:00 93 H 16 128/71 94 06/09/20 05:30 91 H 22 125/80 92 06/09/20 05:00 93 H 20 123/77 100 06/09/20 04:30 91 H 24 131/79 97 06/09/20 03:53 82 L 06/09/20 03:50 82 L 06/09/20 03:35 36.8 C 102 H 24 146/89 H 93 Laboratory Results 06/09/20 04:00 06/09/20 04:00 PG Care Time/CCT Total # of Minutes Spent Total Time Spent with Patient: Total time spent is greater than 50% in coordination of care (as documented) at patient's floor/unit and/or counseling patient: Coding Level of Care Code 70176 Subseq Hosp Care Lvl 3 Diagnoses Acute respiratory failure J96.00 Aspiration into lower respiratory tract T17.800A Pulmonary edema J81.1 Troponin level elevated R77.8 End stage renal disease N18.6 CAD (coronary artery disease) I25.10 Coronary Disease-Associated Artery/Lesion type: [place] artery [place] vs. transplanted heart: [place] heart Associated angina: without angina Dyslipidemia E78.5 GERD (gastroesophageal reflux disease) K21.9 Esophagitis presence: esophagitis presence not specified Fibromyalgia M79.7 Hypertension I15.0 Hypertension type: renovascular hypertension (1) GERD (gastroesophageal reflux disease) Esophagitis presence: esophagitis presence not specified Qualified Code(s): K21.9 - Gastro-esophageal reflux disease without esophagitis (2) CAD (coronary artery disease) Coronary Disease-Associated Artery/Lesion type: [place] artery [place] vs. transplanted heart: [place] heart Associated angina: without angina Qualified Code(s): I25.10 - Atherosclerotic heart disease of [place] coronary artery without angina pectoris (3) Hypertension Hypertension type: renovascular hypertension Qualified Code(s): I15.0 - Renovascular hypertension
[2020-06-09] MEDS: ALBUT/IPRATROP 3MG/0.5MG NEB 3 ML VIAL NEB SCH ×2 (15:00→19:14)
--- NOTE | 2020-06-09 15:31 | Cardiology Consultation ---
Date of Consultation June 09, 2020 Assessment & Plan (1) Acute respiratory failure with hypoxia: (2) Pulmonary edema: (3) Troponin level elevated: (4) CAD (coronary artery disease): (5) PAD (peripheral artery disease): (6) ESRD (end stage renal disease) on dialysis: (7) Hypertension: (8) Mitral regurgitation: (9) Pulmonary hypertension: ASSESSMENT/PLAN: 1. Acute respiratory failure with hypoxia: Doing much better on BiPAP. The acute presentation is concerning for possible ischemic origin given her underlying CAD, pulmonary edema, and intrascapular pain. She appears hypervolemic on examination. Agree with hemodialysis to help manage her volume status. Low-sodium diet. Cannot exclude mitral valve playing a role as well as she has what appears to be significant mitral regurgitation on echo. Recommend non emergent cardiac catheterization and transesophageal echo (if respiratory status improves). Risks and benefits of these procedures were discussed with her in detail. She is agreeable to undergo these procedures and will tentatively plan on transesophageal echo and cath tomorrow morning. 2. Pulmonary edema: As above. Hemodialysis today to manage volume. 3. Elevated troponin: Could be due to hypoxia in the setting of severe underlying CAD and end-stage renal disease. Cannot exclude ischemic event that caused her pulmonary edema. Trend troponins. Low threshold to start heparin drip for recurrent symptoms or upward trending troponin levels. 4. CAD: Previously documented occluded RCA and mid circumflex with severe stenosis in the early mid circumflex prior to large OM1. Presentation for this hospitalization could potentially be due to ischemia, and ischemic MR. Considered cardiac catheterization and discussed with her primary medical laboratory manager, Dr. Pfeiffer. Planning for cardiac catheterization tomorrow morning, after volume status is improved with hemodialysis today. Continue anti-platelet therapy and beta-eve. Continue statin therapy. 5. Mitral regurgitation: Appeared significant on echo with mild pulmonary hypertension. Consider transesophageal echo to further evaluate once her respiratory status improved. Risks and benefits of the procedure were discussed with her in detail. She was agreeable to undergo transesophageal echo. 6. Pulmonary hypertension: Likely due to hypervolemia and possibly mitral regurgitation. Plan as stated above. 7. PAD: No rest symptoms. As per Dr. Pfeiffer. 8. ESRD on HD s/p RUE AV fistula: Undergoing hemodialysis today. Right upper extremity AV fistula is not yet ready for use. As per Nephrology. 9. Disposition: Cardiology will continue to follow. Patient care communicated with Dr. Ross of the primary hospitalist service and also Dr. Pfeiffer, her primary medical laboratory manager. Highly complex medical issues. Thank you for allowing me to participate in the care of your patient. Please call for any other questions or concerns. Sincerely, Emil Watson M.D. History of Present Illness Reason for Consultation: Pulmonary edema and elevated troponin Requesting Physician: To Ross MD Attending Physician: To Ross MD History of Present Illness Mrs. Arnett is a very pleasant 79-year-old female with a history significant for CAD, PAD (s/p Right SFA NICKY and stent, INES balloon, Left SFA NICKY and stents, distal pop/peroneal angioplasty), bilateral renal artery stenosis s/p stents, ESRD on HD MWF, AAA, hypertension, dyslipidemia, and ulcerative colitis s/p colectomy. Her primary medical laboratory manager is Dr. Pfeiffer. She has had the following studies/procedures: 1. Cardiac catheterization 01/22/2018: Diffuse proximal LAD 20-30%. Mid LAD 30-40%. Early mid circumflex 80-90% prior to ectatic segment and takeoff of large OM1. Proximal OM1 50-60%. Mid circumflex 100%, filling distally via [id number] collaterals. Mid RCA 40-50%. Late mid RCA 100% with faint right to right collaterals. Distal RCA fills via [id number] collaterals. 2. [place] artery [place] [facility] [place] was [place]. Complicated by atheroemboli to feet and kidneys. 3. Hemodialysis began December 2019. 4. Lower extremity angiography February 2020: Bilateral SFA drug-eluting balloon and stents. Right INES and left distal popliteal/peroneal arteries treated with angioplasty. She was admitted earlier today with acute shortness of breath with hypoxia. She felt her usual self yesterday, noting some nausea before bed sheets but no chest pain or shortness of breath. At approximately midnight, she was awakened acutely with severe shortness of breath and mid intrascapular pain. Her oxygen saturation was reportedly 80% on room air. She was eventually placed on BiPAP and her breathing is now improved. She denies shortness of breath while on BiPAP. She has not had any further intrascapular pain and denies chest pain of any kind. She vomited which he got to the emergency department and since then, her nausea has improved. She she has not missed any dialysis appointment recently. She states that she has maintained a low-sodium diet. She has been taking her medications as prescribed. During our visit today, she was being prepped to undergo hemodialysis while in her hospital room. She has not been overly active due to wounds on her toes. She denies melena, hematochezia, hematuria, or other bleeding. She denies syncope, near-syncope, palpitations, abdominal pain, fevers, or chills. Review of systems: As above. Review of systems otherwise negative/unremarkable. Family history: Mother had heart disease and at the age of 66. Social history: She denies tobacco, alcohol, or drug abuse. She lives at home with her . She has 1 son. Her presented to the bedside. Allergies Allergy/AdvReac Type Severity Reaction Status Date / Time hydrocodone Allergy Intermediate RASH, HIVES Verified 06/09/20 04:23 Sulfa (Sulfonamide AdvReac Intermediate "SULFA Verified 06/09/20 04:23 Antibiotics) DRUGS": N/V spironolactone AdvReac Mild GI Verified 06/09/20 04:23 SYMPTOMS,NAUSEA AND VOMITING Aldactazide AdvReac Unknown GI Unverified 07/24/17 10:20 SYMPTOMS,NAUSEA AND VOMITING hydrochlorothiazide AdvReac Unknown GI Verified 06/09/20 04:23 SYMPTOMS,NAUSEA AND VOMITING Home Medications Medication Instructions Recorded Confirmed Type cholecalciferol (vitamin D3) 50 2,000 units PO QAM 10/16/18 06/09/20 History mcg (2,000 unit) capsule coenzyme Q10 200 mg capsule 200 mg PO QAM cap 10/31/18 06/09/20 History exemestane 25 mg tablet 25 mg PO DAILY@1200 tab 10/31/18 06/09/20 History aspirin [Enteric Coated Aspirin] 81 mg PO HS 01/23/19 06/09/20 History clopidogrel 75 mg tablet 75 mg PO QAM #90 tab 12/29/19 06/09/20 Rx metoprolol succinate 50 mg 50 mg PO HS #90 tab 01/16/20 06/09/20 Rx tablet,extended release 24 hr amlodipine 10 mg PO QAM 02/27/20 06/09/20 History gabapentin 100 mg capsule 200 mg PO HS cap 04/01/20 06/09/20 History isosorbide mononitrate 60 mg 30 mg PO DAILY@1200 tab 04/01/20 06/09/20 History tablet,extended release 24 hr rosuvastatin 10 mg tablet 10 mg PO HS #90 tab 04/08/20 06/09/20 Rx lansoprazole 30 mg capsule,delayed 30 mg PO DAILY #30 cap 06/03/20 06/09/20 Rx release ondansetron 4 mg disintegrating 4 mg PO Q6H PRN #90 tab 06/03/20 06/09/20 Rx tablet tramadol 50 mg tablet 50 mg PO Q12 PRN #60 tab 06/04/20 06/09/20 Rx Patient History Medical History (Updated 06/09/20 @ 15:50 by Elias Watson MD) AAA (abdominal aortic aneurysm) PCP monitoring. "Mild fusiform aneurysmal dilatation of the distal thoracic and abdominal aorta." per 02/27/[address] CAD (coronary artery disease) Severe multivessel coronary artery diseaseoccluded distal right, occluded distal circumflex, 90% focal stenosis in mid circumflex into OM1 - follows with Dr. Pfeiffer Degenerative joint disease, multiple joints on both sides of body Dyslipidemia ESRD (end stage renal disease) on dialysis started dialysis 12/2019 - [facility] - follows with Dr. Kaur Fibromyalgia GERD (gastroesophageal reflux disease) History of breast cancer Lt lumpectomy/chemo/radiation 2016 History of myocardial infarction silent -- informed in 2018 of evidence of previous [place] History of skin cancer removed History of stent insertion of renal artery Lt History of ulcerative colitis Hypertension Mitral regurgitation Osteoarthritis PAD (peripheral artery disease) Peripheral neuropathy Right renal artery stenosis h/o failed attempt to stent Rt renal artery per pt - atheroemboli to her feet and kidneys Spinal stenosis Surgical History History of anesthesia reaction "easy to put out and hard to wake up" History of breast biopsy History of cardiac catheterization 2017 [place] -abn stress test - no stents History of colectomy No colostomy, anastamosis of small bowel. History of colonoscopy History of esophagogastroduodenoscopy (EGD) History of lumpectomy of left breast History of vascular access device temporary dialysis catheter to Rt chest History of vascular surgery 03/22/2020 DR Pfeiffer [facility] stents to BLLE Family History Mother Colon cancer Cardiac disorder Hypertension Father Colon cancer Cardiac disorder Cancer Family/Other Coronary arteriosclerosis Other No family history of adverse response to anesthesia Social History Smoking Status: Never smoker Second Hand Exposure: Yes (hx); Hx Alcohol Use: No Hx Substance Use: No Preferred Language: Italian Communication Ability: Effective Gravel Screener Required: No Beliefs That Will Affect Care: None marital status: Current Living Situation: Spouse current occupational status: retired How many Children do You have: 1 How many Children do You have Comment: not local. able to assist with care as needed. Feels Safe at Home: Yes Diet Comment: renal diet during the past year weight has: decreased > 10 lbs Assistive Devices: Denture - Upper and Glasses Physical Exam Physical Exam: Gen.: No acute distress while on BiPAP. Alert and oriented. HEENT: Anicteric sclera. Neck: Elevated JVD to her mandible sitting approximately 60 upright. No definite bruits (but on BiPAP). Normal carotid upstrokes bilaterally. Cardiac: PMI was nondisplaced. No ventricular heave. Regular. Normal S1-S2. 2/6 holosystolic murmur best heard at the apex radiating into the axilla. No rubs or gallops. Pulmonary: Bilateral rales. No wheezing. Abdomen: Soft, nontender, nondistended, with normoactive bowel sounds. No bruits noted. Extremities: 2+ left radial pulse. Right upper extremity with AV fistula, with ketty in place. Right upper extremity appears swollen with ecchymosis. Palpable thrill and audible bruit. 1+ dorsalis pedis pulses bilaterally. No significant pitting edema or cyanosis. Psychiatric: Affect appears appropriate. Results & Data ([facility]) Vital Signs (Past 12 Hours) Vital Signs Temp Pulse Pulse Resp BP BP Pulse Ox 06/09/20 13:15 20 95 06/09/20 13:05 96 H 30 H 93 06/09/20 12:51 37.2 C 103 H 26 H 150/87 H 85 L 06/09/20 12:09 36.8 C 91 H 18 119/75 90 06/09/20 07:37 36.7 C 85 18 110/76 97 06/09/20 06:54 88 20 115/77 90 06/09/20 06:30 90 24 115/77 92 06/09/20 06:00 93 H 16 128/71 94 06/09/20 05:30 91 H 22 125/80 92 06/09/20 05:00 93 H 20 123/77 100 06/09/20 04:30 91 H 24 131/79 97 06/09/20 03:53 82 L 06/09/20 03:50 82 L 06/09/20 03:35 36.8 C 102 H 24 146/89 H 93 Laboratory Results Laboratory Results - last 24 hr 06/09/20 06/09/20 06/09/20 04:00 04:00 04:00 WBC 15.88 H RBC 3.16 L Hgb 10.3 L Hct 31.5 L MCV 99.7 MCH 32.6 MCHC 32.7 RDW Std Deviation 55.8 H RDW Coeff of Max 15.4 H Plt Count 276 MPV 10.1 Immature Gran % (Auto) 0.3 Neut % (Auto) 74.7 Lymph % (Auto) 13.4 [place] % (Auto) 6.2 Eos % (Auto) 5.0 Baso % (Auto) 0.4 Neut # (Auto) 11.88 H Lymph # (Auto) 2.12 [place] # (Auto) 0.98 H Eos # (Auto) 0.80 H Baso # (Auto) 0.06 Immature Gran # (Auto) 0.04 H PT 10.8 INR 1.1 APTT 23.6 PTT Ratio 0.9 Sodium 133 L Potassium 4.6 Chloride 95 L Carbon Dioxide 28 Anion Gap 10.0 BUN 30 H Creatinine 6.81 H* Est Cr Clr Drug Dosing 4.7 Est GFR ( Amer) 6.0 Est GFR (Non-Af Amer) 5.2 BUN/Creatinine Ratio 4.3 L Glucose 105 H Calcium 9.5 Total Bilirubin 0.7 AST 20 ALT 9 L Alkaline Phosphatase 70 Troponin I 0.165 H* Total Protein 8.8 H Albumin 3.6 Globulin 5.2 H Albumin/Globulin Ratio 0.7 L Nasal Screen MRSA (PCR) COVID-19 Eval Order SARS-CoV-2 (PCR) Hep Bs Antigen Influenza Type A (PCR) Influenza Type B (PCR) RSV (RT-PCR) 06/09/20 06/09/20 06/09/20 04:00 05:56 05:56 WBC RBC Hgb Hct MCV MCH MCHC RDW Std Deviation RDW Coeff of Max Plt Count MPV Immature Gran % (Auto) Neut % (Auto) Lymph % (Auto) [place] % (Auto) Eos % (Auto) Baso % (Auto) Neut # (Auto) Lymph # (Auto) [place] # (Auto) Eos # (Auto) Baso # (Auto) Immature Gran # (Auto) PT INR APTT PTT Ratio Sodium Potassium Chloride Carbon Dioxide Anion Gap BUN Creatinine Est Cr Clr Drug Dosing Est GFR ( Amer) Est GFR (Non-Af Amer) BUN/Creatinine Ratio Glucose Calcium Total Bilirubin AST ALT Alkaline Phosphatase Troponin I Total Protein Albumin Globulin Albumin/Globulin Ratio Nasal Screen MRSA (PCR) COVID-19 Eval Order CovFluRsv at [facility] SARS-CoV-2 (PCR) NEGATIVE Hep Bs Antigen Neg Influenza Type A (PCR) Negative Influenza Type B (PCR) Negative RSV (RT-PCR) Negative 06/09/20 10:50 WBC RBC Hgb Hct MCV MCH MCHC RDW Std Deviation RDW Coeff of Max Plt Count MPV Immature Gran % (Auto) Neut % (Auto) Lymph % (Auto) [place] % (Auto) Eos % (Auto) Baso % (Auto) Neut # (Auto) Lymph # (Auto) [place] # (Auto) Eos # (Auto) Baso # (Auto) Immature Gran # (Auto) PT INR APTT PTT Ratio Sodium Potassium Chloride Carbon Dioxide Anion Gap BUN Creatinine Est Cr Clr Drug Dosing Est GFR ( Amer) Est GFR (Non-Af Amer) BUN/Creatinine Ratio Glucose Calcium Total Bilirubin AST ALT Alkaline Phosphatase Troponin I Total Protein Albumin Globulin Albumin/Globulin Ratio Nasal Screen MRSA (PCR) Negative COVID-19 Eval Order SARS-CoV-2 (PCR) Hep Bs Antigen Influenza Type A (PCR) Influenza Type B (PCR) RSV (RT-PCR) Diagnostic Findings Telemetry personally reviewed: Sinus rhythm. No arrhythmia. Echo 06/09/2020: Normal LV systolic function. EF 55-60%. Inferolateral hypokinesis. Moderate left atrial dilation. Sclerotic aortic valve. Tethered posterior mitral leaflet with probable moderate to severe MR. RVSP 44. ECG personally reviewed: ECG 06/09/2020 at 3:45 a.m.: Sinus rhythm 99 beats per minute. Nonspecific ST abnormality. Chart reviewed, including prior cardiac catheterization report and cardiac catheterization images from Jan 22, 2018 demonstrating occluded RCA and severe mid circumflex stenosis followed by occlusion. Chest x-ray from 06/09/2020 personally reviewed: Pulmonary edema. Medications Administered Current Inpatient Medications Acetaminophen (Acetaminophen 325 Mg Tab) 650 mg PO Q4H PRN PRN Reason: pain/fever Stop: 07/09/20 07:36 Albuterol (Albut/Ipratrop 3mg/0.5mg Neb 3 Ml Vial) 3 ml NEB QIDR COUNTS INCLUDE 234 BEDS AT THE [facility] Stop: 07/09/20 14:59 Last Admin: 06/09/20 15:00 Dose: 3 ml Documented by: Amlodipine Besylate (Amlodipine Besylate 5 Mg Tab) 10 mg PO QAM COUNTS INCLUDE 234 BEDS AT THE [facility] Stop: 07/09/20 08:59 Last Admin: 06/09/20 08:46 Dose: 10 mg Documented by: Aspirin (Aspirin 81 Mg Ectab) 81 mg PO [facility] Stop: 07/09/20 20:59 Clopidogrel Bisulfate (Clopidogrel Bisulfate 75 Mg Tab) 75 mg PO QAM COUNTS INCLUDE 234 BEDS AT THE [facility] Stop: 07/09/20 08:59 Last Admin: 06/09/20 08:45 Dose: 75 mg Documented by: Gabapentin (Gabapentin 100 Mg Cap) 200 mg PO [facility] Stop: 07/09/20 20:59 Heparin Sodium (Porcine) (Heparin Sod 5,000 Unit/0.5 Ml Vial) 5,000 units SQ Q12 COUNTS INCLUDE 234 BEDS AT THE [facility] Stop: 07/09/20 08:59 Last Admin: 06/09/20 10:48 Dose: 5,000 units Documented by: Sodium Chloride (Nss 1000ml) 1,000 mls @ 0 mls/hr IV .Q0M PRN PRN Reason: For Hemodialysis Use ONLY Stop: 06/09/20 16:45 Methylprednisolone 60 mg/ (Syringe) 0.96 mls @ 1.5 mls/min IV Q6H COUNTS INCLUDE 234 BEDS AT THE [facility] Stop: 07/09/20 11:59 Last Admin: 06/09/20 13:06 Dose: 1.5 mls/min Documented by: Piperacillin Sod/Tazobactam (Sod 3.375 gm/ Dextrose) 115 mls @ 28.75 mls/hr IV Q12H COUNTS INCLUDE 234 BEDS AT THE [facility]; Protocol Stop: 06/16/20 19:59 Isosorbide Mononitrate (Isosorbide [place] Extended Rel 30 Mg Tabcr) 30 mg PO DAILY@1200 [facility] Stop: 07/09/20 11:59 Last Admin: 06/09/20 13:06 Dose: Not Given Documented by: Lansoprazole (Lansoprazole 30 Mg Soltab) 30 mg PO DAILY COUNTS INCLUDE 234 BEDS AT THE [facility] Stop: 07/09/20 08:59 Last Admin: 06/09/20 08:45 Dose: 30 mg Documented by: Metoprolol Succinate (Metoprolol Succ 50mg Ext Rel Tab) 50 mg PO [facility] Stop: 07/09/20 20:59 Miscellaneous (*Exemestane*Order Awaiting Action) 1 ea N/A QS COUNTS INCLUDE 234 BEDS AT THE [facility] Stop: 07/09/20 07:59 Last Admin: 06/09/20 14:58 Dose: Not Given Documented by: Miscellaneous Information (Piperacill/Tazobac Consult Active) 1 ea N/A UD PRN PRN Reason: Consult Stop: 07/09/20 11:37 Ondansetron HCl (Ondansetron 4 Mg Od Tab) 4 mg PO Q6H PRN PRN Reason: Nausea And Vomiting Stop: 07/09/20 07:52 Ondansetron HCl (Ondansetron Inj 2 Mg/Ml 2 Ml Vial) 4 mg IV Q6H PRN PRN Reason: Nausea Stop: 07/09/20 07:36 Last Admin: 06/09/20 12:31 Dose: 4 mg Documented by: Rosuvastatin Calcium (Rosuvastatin Calcium 10 Mg Tab) 10 mg PO [facility] Stop: 07/09/20 20:59 Tramadol HCl (Tramadol Hcl 50 Mg Tablet) 50 mg PO Q12 PRN PRN Reason: Pain Stop: 07/09/20 07:36 Vitamin D (Cholecalciferol 1,000 Units 25 Mcg Tab) [facility] [place]: 07/10/20 08:59 PG Care Time/CCT Total # of Minutes Spent Total Time Spent with Patient: Total time spent is greater than 50% in coordination of care (as documented) at patient's floor/unit and/or counseling patient: Coding Level of Care Code 69019 Initial Inpt Care Lvl 3 Diagnoses Acute respiratory failure with hypoxia J96.01 Pulmonary edema J81.1 Troponin level elevated R77.8 CAD (coronary artery disease) I25.10 Coronary Disease-Associated Artery/Lesion type: [place] artery [place] vs. transplanted heart: [place] heart Associated angina: without angina PAD (peripheral artery disease) I73.9 ESRD (end stage renal disease) on dialysis N18.6; Z99.2 Hypertension I15.0 Hypertension type: renovascular hypertension Mitral regurgitation I34.0 Pulmonary hypertension I27.20 (1) CAD (coronary artery disease) Coronary Disease-Associated Artery/Lesion type: [place] artery [place] vs. transplanted heart: [place] heart Associated angina: without angina Qualified Code(s): I25.10 - Atherosclerotic heart disease of [place] coronary artery without angina pectoris (2) Hypertension Hypertension type: renovascular hypertension Qualified Code(s): I15.0 - Renovascular hypertension
[2020-06-09] MEDS: HEPARIN SOD (PORCINE) 1000 UNIT/ML IV SCH ×3 (15:47→17:55)
--- NOTE | 2020-06-09 21:06 | Ultrasound Report ---
ULTRASOUND RIGHT UPPER EXTREMITY HEMODIALYSIS ACCESS CLINICAL HISTORY: Right upper extremity edema. COMPARISON STUDY: No priors. FINDINGS: Real-time, grayscale, and color Doppler sonography of the right upper extremity hemodialysi s graft is performed. The dialysis graft is patent. Trace complex fluid around the graft likely repre sents blood products. There are 2 complex fluid collections in the right upper extremity that are typ ical in appearance for hematomas. No internal flow is identified within these collections. A more pro ximally located collection deep to an incision measures 5.6 x 1.6 x 5.1 cm, and a complex collection around the distal end of the graft/incision measures 4.5 x 2.3 x 4.5 cm. Velocities within the graft measure up to 160 cm/s. The arterial and venous anastomoses are patent. IMPRESSION: 1. A right upper extremity dialysis graft is patent. 2. There is no evidence of pseudoaneurysm. 3. There are are 2 nonvascular fluid collections identified deep to the upper and lower incisions marion t are typical in appearance for hematomas. Clinical correlation will be required and clinical follow- up to resolution is recommended. Electronically signed by: Amado Goode M.D. 06/09/2020 9:05 PM
[2020-06-09] MEDS: PIPERACILLIN/TAZOBACTAM 3.375 GM in DEXTROSE 5% 100 ML IV SCH (21:22)
[2020-06-09] MEDS: ASPIRIN 81 MG ECTAB PO SCH (21:28)
[2020-06-09] MEDS: GABAPENTIN 100 MG CAP PO SCH (21:28)
[2020-06-09] MEDS: ROSUVASTATIN CALCIUM 10 MG TAB PO SCH (21:28)
[2020-06-09] MEDS: METOPROLOL SUCC 50MG EXT REL TAB PO SCH (21:29)
[2020-06-09] MEDS ORDERED: HEPARIN SODIUM/DEXTROSE 25,000 UNITS/500 ML BAG IV SCH (21:30)
[2020-06-09] MEDS: traMADol HCL 50 MG TABLET PO PRN (21:38)
[2020-06-10 05:17] LABS: Basophils # (auto) 0.01 K/uL (0-0.2); Basophils % (auto) 0.1 %; Hematocrit (blood only) 27.8 % (37-47); Immature Granulocytes # (auto) 0.04 K/uL (0.00-0.02); Immature Granulocytes % (auto) 0.3 %; Lymphocytes # (auto) 1.09 K/uL (1.2-3.4); Lymphocytes % (auto) 7.2 %; Mean Corpuscular Hemoglobin 31.6 pg (25-34); Mean Corpuscular Hgb Conc 32.4 g/dL (32-36); Mean Corpuscular Volume 97.5 fL (80-100); Mean Platelet Volume 10.1 fL (7.4-10.4); Monocytes # (auto) 0.48 K/uL (0.11-0.59); Monocytes % (auto) 3.2 %; Neutrophils # (auto) 13.44 K/uL (1.4-6.5); Neutrophils % (auto) 89.2 %; Platelet Count 212 K/uL (130-400); RDW Coefficient of Variation 15.2 % (11.5-14.5); RDW Standard Deviation 54.2 fL (36.4-46.3); Red Blood Count 2.85 M/uL (4.2-5.4); White Blood Count 15.06 K/uL (4.8-10.8)
[2020-06-10 05:31] LABS: Partial Thromboplastin Ratio 4.5
--- NOTE | 2020-06-10 05:41 | Electrocardiogram Report ---
Test Reason : Blood Pressure : / mmHG Vent. Rate : 099 BPM Atrial Rate : 099 BPM P-R Int : 136 ms QRS Dur : 086 ms QT Int : 346 ms P-R-T Axes : 055 067 043 degrees QTc Int : 444 ms Poor data quality, interpretation may be adversely affected Normal sinus rhythm Possible Left atrial enlargement Nonspecific ST abnormality When compared with ECG of 27-FEB-2020 12:38, QRS axis Shifted left T wave inversion no longer evident in Inferior leads Confirmed by Elias Watson ([id number]) on 06/10/2020 5:41:14 AM Referred By: REFERRED SELF Confirmed By:Elias Watson
[2020-06-10 05:52] LABS: BUN Creatinine Ratio 5.5 (10-20); Creatinine Clr Calc Pharmacy 4.9 ml/min; Est GFR (African American) 6.4; Est GFR (Non-African American) 5.5; Potassium 4.4 mmol/L (3.5-5.1)
[2020-06-10 06:01] LABS: Partial Thromboplastin Time 119.6 Seconds (21.0-31.0)
[2020-06-10] MEDS: methylPREDNISolone 60 MG in SYRINGE 0 ML IV SCH ×4 (06:11→23:35)
[2020-06-10] MEDS ORDERED: fentaNYL citrate 100 MCG/2 ML VIAL ONE (06:59)
[2020-06-10] MEDS ORDERED: MIDAZOLAM HCL 5 MG/ML 1 ML VIAL ONE (06:59)
[2020-06-10] MEDS: ALBUT/IPRATROP 3MG/0.5MG NEB 3 ML VIAL NEB SCH (07:05)
[2020-06-10] MEDS ORDERED: CANNULA ONE (07:05)
[2020-06-10] MEDS: Heparin IV Adult Wt-Based Standard *NO* Bolus Protocol IV SCH (07:12)
--- NOTE | 2020-06-10 07:12 | Pre Anesthesia Assessment ---
Date of Service June 10, 2020 Pre Sedation Assessment Vital Signs Temp Pulse Pulse Pulse Resp BP BP 06/10/20 06:58 88 16 109/82 06/10/20 03:40 36.7 C 82 20 116/81 06/10/20 00:00 81 06/09/20 23:04 36.5 C 81 18 98/63 L 06/09/20 20:37 36.9 C 84 111/76 06/09/20 19:35 36.6 C 85 18 105/65 06/09/20 19:14 81 19 06/09/20 18:17 81 18 06/09/20 17:20 36.6 C 86 106/51 L 06/09/20 16:20 82 99/68 L 06/09/20 16:14 88 84/50 L 06/09/20 16:00 88 133/76 06/09/20 15:40 89 105/73 06/09/20 15:24 86 06/09/20 15:20 90 132/81 06/09/20 15:06 88 28 H 06/09/20 15:03 88 28 H 06/09/20 15:00 88 132/85 06/09/20 14:40 86 134/84 06/09/20 14:25 88 116/69 06/09/20 14:10 36.4 C L 87 06/09/20 13:15 20 06/09/20 13:05 96 H 30 H 06/09/20 12:51 37.2 C 103 H 26 H 150/87 H 06/09/20 12:09 36.8 C 91 H 18 119/75 06/09/20 07:37 36.7 C 85 18 110/76 Pulse Ox 06/10/20 06:58 94 06/10/20 03:40 92 06/10/20 00:00 06/09/20 23:04 95 06/09/20 20:37 95 06/09/20 19:35 100 06/09/20 19:14 90 06/09/20 18:17 94 06/09/20 17:20 06/09/20 16:20 06/09/20 16:14 06/09/20 16:00 06/09/20 15:40 06/09/20 15:24 06/09/20 15:20 03/17/21 15:06 92 06/09/20 15:03 92 06/09/20 15:00 06/09/20 14:40 06/09/20 14:25 06/09/20 14:10 06/09/20 13:15 95 06/09/20 13:05 93 06/09/20 12:51 85 L 06/09/20 12:09 90 06/09/20 07:37 97 Cardiovascular + regular rate + murmur Respiratory + rales Pre-Sedation Airway Assessment Smoking Status: Never smoker Hx Sleep Apnea: No Hx Difficult Intubation: No Short, Thick Neck: No Thyromental Distance: > or= 3.5 Finger Breadths Oral Cavity: + Dentures Mallampati Class: III ASA: ASA3 NPO Status Date of Last Intake of Fluids: 06/09/20 Time of Last Intake of Fluids: 23:00 Date of Last Intake of Solid Food: 06/09/20 Time of Last Intake of Solid Foods: 23:00 Procedure Planning Contraindications for Sedation: none Current Medications Reviewed: Yes Notes The planned sedation has been discussed with the patient. Informed Consent was obtained. I have identified the patient, determined the appropriateness of sedation and have assessed the patient immediately prior to the procedure. All medicine(s) and interventions are by my order.
[2020-06-10 07:31] LABS: Appearance Urine Clear (Clear); Bacteria Urine Automated Negative (Negative); Bilirubin Urine Negative (Negative); Blood Urine Negative (Negative); Color Urine Dark Yellow; Epithelial Cell Urine Auto >30 /lpf (0-5); Glucose Urine UA Negative (Negative); Ketones Urine Trace (Negative); Leukocyte Esterase Urine 1+ (Negative); Nitrite Urine Negative (Negative); Protein Urine 3+ (Negative); Specific Gravity Urine 1.022 (1.000-1.030); Urobilinogen Urine Negative (Negative)
--- NOTE | 2020-06-10 07:58 | Post Operative Brief Note ---
Cardiology Brief Post Op Date of Surgery June 10, 2020 Pre & Post Diagnosis Operation Date: 06/10/20 07:00 <No data on this case meets the specified criteria> Operation Date: 06/10/20 08:00 <No data on this case meets the specified criteria> Procedure ANTHONY Bone Grinder Elias Watson MD Ornithology Teacher Brigida Estimated Blood Loss 0 Findings See Below Prelim: Normal LV systolic function. Significant MR. Complications none
[2020-06-10] MEDS ORDERED: HEPARIN (PORCINE) 1000 UNIT/ML 10 ML (CATH LAB USE ONLY) ONE (08:01)
[2020-06-10] MEDS ORDERED: NITROGLYCERIN/D5W 100MCG/ML 20ML SYR ONE (08:01)
[2020-06-10] MEDS ORDERED: niCARdipine HCL INJ 2.5 MG/ML 10 ML AMP ONE (08:01)
--- NOTE | 2020-06-10 08:11 | Pre Anesthesia Assessment ---
Date of Service June 10, 2020 Pre Sedation Assessment Vital Signs Temp Pulse Pulse Pulse Resp BP BP 06/10/20 06:58 88 16 109/82 06/10/20 03:40 98.1 F 82 20 116/81 06/10/20 00:00 81 06/09/20 23:04 97.7 F 81 18 98/63 L 06/09/20 20:37 98.4 F 84 111/76 06/09/20 19:35 97.9 F 85 18 105/65 06/09/20 19:14 81 19 06/09/20 18:17 81 18 06/09/20 17:20 97.9 F 86 106/51 L 06/09/20 16:20 82 99/68 L 06/09/20 16:14 88 84/50 L 06/09/20 16:00 88 133/76 06/09/20 15:40 89 105/73 06/09/20 15:24 86 06/09/20 15:20 90 132/81 06/09/20 15:06 88 28 H 06/09/20 15:03 88 28 H 06/09/20 15:00 88 132/85 06/09/20 14:40 86 134/84 06/09/20 14:25 88 116/69 06/09/20 14:10 97.5 F L 87 06/09/20 13:15 20 06/09/20 13:05 96 H 30 H 06/09/20 12:51 99.0 F 103 H 26 H 150/87 H 06/09/20 12:09 98.2 F 91 H 18 119/75 Pulse Ox 06/10/20 06:58 94 06/10/20 03:40 92 06/10/20 00:00 06/09/20 23:04 95 06/09/20 20:37 95 06/09/20 19:35 100 06/09/20 19:14 90 06/09/20 18:17 94 06/09/20 17:20 06/09/20 16:20 06/09/20 16:14 06/09/20 16:00 06/09/20 15:40 06/09/20 15:24 06/09/20 15:20 06/09/20 15:06 92 06/09/20 15:03 92 06/09/20 15:00 06/09/20 14:40 06/09/20 14:25 06/09/20 14:10 06/09/20 13:15 95 06/09/20 13:05 93 06/09/20 12:51 85 L 06/09/20 12:09 90 Cardiovascular RRR, no murmur, no edema Respiratory normal respiratory effort, lungs clear to auscultation Pre-Sedation Airway Assessment Smoking Status: Never smoker Hx Sleep Apnea: No Hx Difficult Intubation: No Short, Thick Neck: No Thyromental Distance: > or= 3.5 Finger Breadths Oral Cavity: + Dentures Mallampati Class: III ASA: ASA3 NPO Status Date of Last Intake of Fluids: 06/09/20 Time of Last Intake of Fluids: 23:00 Date of Last Intake of Solid Food: 06/09/20 Time of Last Intake of Solid Foods: 23:00 Procedure Planning Contraindications for Sedation: none Current Medications Reviewed: Yes Notes The planned sedation has been discussed with the patient. Informed Consent was obtained. I have identified the patient, determined the appropriateness of sedation and have assessed the patient immediately prior to the procedure. All medicine(s) and interventions are by my order.
--- NOTE | 2020-06-10 08:58 | Post Anesthesia Assessment ---
Date of Service June 10, 2020 Post Sedation Assessment Vital Signs Temp Pulse Pulse Pulse Resp BP BP 06/10/20 06:58 88 16 109/82 06/10/20 06:50 82 06/10/20 03:40 98.1 F 82 20 116/81 06/10/20 00:00 81 06/09/20 23:04 97.7 F 81 18 98/63 L 06/09/20 20:37 98.4 F 84 111/76 06/09/20 19:35 97.9 F 85 18 105/65 06/09/20 19:14 81 19 06/09/20 18:17 81 18 06/09/20 17:20 97.9 F 86 106/51 L 06/09/20 16:20 82 99/68 L 06/09/20 16:14 88 84/50 L 06/09/20 16:00 88 133/76 06/09/20 15:40 89 105/73 06/09/20 15:24 86 06/09/20 15:20 90 132/81 06/09/20 15:06 88 28 H 06/09/20 15:03 88 28 H 06/09/20 15:00 88 132/85 06/09/20 14:40 86 134/84 06/09/20 14:25 88 116/69 06/09/20 14:10 97.5 F L 87 06/09/20 13:15 20 06/09/20 13:05 96 H 30 H 06/09/20 12:51 99.0 F 103 H 26 H 150/87 H 06/09/20 12:09 98.2 F 91 H 18 119/75 Pulse Ox 06/10/20 06:58 94 06/10/20 06:50 06/10/20 03:40 92 06/10/20 00:00 06/09/20 23:04 95 06/09/20 20:37 95 06/09/20 19:35 100 06/09/20 19:14 90 06/09/20 18:17 94 06/09/20 17:20 06/09/20 16:20 06/09/20 16:14 06/09/20 16:00 06/09/20 15:40 06/09/20 15:24 06/09/20 15:20 03/17/21 15:06 92 06/09/20 15:03 92 06/09/20 15:00 06/09/20 14:40 06/09/20 14:25 06/09/20 14:10 06/09/20 13:15 95 06/09/20 13:05 93 06/09/20 12:51 85 L 06/09/20 12:09 90 Recovery Score Activity: Moves 4 extremities Respiration: Deep Breath/Cough Circulation: +/-20% PreAnes Value Consciousness: Fully Awake Oxygen Saturation: O2 needed for >90% Discharge Sedation Level of Care: Fast Track Phase II Post Sedation Plan On clinical assessment, the patient appears to have tolerated the sedation without complications. Patient is recovering as anticipated. Patient will continue to be monitored by nursing and may be discharged when sedation discharge criteria are met per below protocol. Upon Completions of procedure up to 15 minutes continue every 5 minute vital signs and the P.A.R. score; then discharge to a Phase I or Fast Track to Phase II per the following guidelines: * Discharge Patient to appropriate Phase II area if PAR is 8 or greater or return to pre- procedure baseline. The post - procedure orders will be as directed. * If PAR score is less than 8 or not return to pre-procedure baseline then patient will follow Phase I monitoring till PAR is reached for Phase II. The Phase I may be done in procedure room or may call to secure a Phase I area. * If naloxone or flumazenil are used for reversal, hold in Phase I for continued monitoring from when last reversal dose was given for a minimum of 60 minutes or longer pending the nurse and/or physician discretion of patient condition before discharge to Phase II. Please call the Sedation Physician to re-evaluate and complete post-note for discharge to Phase II area. Do NOT discharge from procedure sedation or Phase 1 until post- sedation evaluation note is complete by procedure /sedation MD Sedation Discharge Instructions to be given to the patient at discharge to home.
--- NOTE | 2020-06-10 09:04 | Cardiac Catheterization ---
[facility] Data: Vocal Artist Cardiac Status Clinical evaluation leading to the procedure CAD Presenation: Non STEMI Anginal Classification: CCS IV Heart Failure: NYHA Class: CCS IV Cardiogenic Shock within 24 Hours: No Cardiac Arrest within 24 Hours: No Imaging Studies Past 6 Months: Yes Stress Studies Past 6 Months: No Diagnostic Physicians Name: Oscar Pfeiffer MD Status: Elective Closure Device Percutaneous Entry Location: Radial Closure Device: Radial Band Recommendations: Medical Therapy and/or Counseling Intraprocedure Events Significant Disection: No Perforation: No Cardiac Cath Procedure Full Procedure Date June 10, 2020 Pre-Procedure Diagnosis Pre-Procedure Diagnosis: Non STEMI AUC Score AUC Score: 7 Post-Procedure Diagnosis Post-Procedure Diagnosis: Severe CAD, Normal Intracardiac Pressures and Elevated Intracardiac Pressures Procedure(s) Performed Procedure(s) Performed: Coronary Angiography and Left Heart Cath Heater Room Helper Oscar Pfeiffer MD Promotions Coordinator(s) Justus Estimated Blood Loss Estimated Blood Loss: 10 Medication(s) Medication(s): Fentanyl, Heparin, Lidocaine 1%, Nicardipine, Nitroglycerin and Versed Summary of Findings Indication: NSTEMI, pulmonary edema Access: 6 Fr left radial artery Catheters: JL 3.5, JR4 Findings: LM -normal caliber, no significant disease LAD -medium caliber vessel, 30 to 40% proximal, mid segment luminal irregularities, distal vessel tortuous as wraps around apex. Circumflex -large caliber vessel, 95% mid segment stenosis followed by ectatic proximal large OM1. Distal circumflex with chronic total occlusion which fills via left to left collaterals. RCA -medium caliber, dominant, 40% mid segment disease, distal vessel with chronic total occlusion. PDA/PLB's fill via [id number] collaterals. LVEDP -19 Arterial Closure: TR band Summary: 1. Severe chronic multivessel coronary artery disease -95% mid circumflex prior to aneurysmal proximal OM2 100% distal circumflex chronic total occlusion. Fills via left to left collaterals. 100% distal RCA chronic total occlusion. Fills via [id number] collaterals. 2. Mildly elevated intracardiac filling pressure Recommendations: Coronary anatomy largely unchanged from 2018. Recommend continued medical management. Hemodynamics Rest Ao:: 101/59/77 Final Ao: 103/62/79 LV: 102/19 Recommendations Recommendations: Medical Therapy and/or Counseling Specimens Specimens: None Radiation Exposure (mGy) 439 Contrast (mls) 60 Fluids (cc crystalloids) Fluids (cc crystalloids): 60 Drains Drains: None Anesthesia Moderate 8: 2 08: 5 2 Procedural Complication(s) None Disposition Vocal Artist Holding/Recovery I attest to the content of the Intraoperative Record and any orders documented therein. Any exceptions are noted below. [facility] Card Cath Procedure Codes Cardiac Catheterization Procedure 1: Cardiovascular Cath Procedures: 04629 Coronaries and LHC (+/-LV) Moderate Sedation Procedure 1: Sedation/Anesthesia: 76144 Mod Sedation by the same physician;Init15 Min Child Age 5 & Up Procedure 2: Sedation/Anesthesia: 11928 Mod Sedation by the same physician; Ea [id number] Minutes PG Care Time/CCT Total # of Minutes Spent Total Time Spent with Patient: Total time spent is greater than 50% in coordination of care (as documented) at patient's floor/unit and/or counseling patient:
[2020-06-10] MEDS: PIPERACILLIN/TAZOBACTAM 3.375 GM in DEXTROSE 5% 100 ML IV SCH ×2 (09:33→19:31)
[2020-06-10] MEDS ORDERED: ALBUT/IPRATROP 3MG/0.5MG NEB 3 ML VIAL NEB PRN (10:35)
--- NOTE | 2020-06-10 11:11 | Nephrology Progress Note ---
Date of Service June 10, 2020 Assessment & Plan (1) End stage renal disease: Mrs. Arnett appears to be significantly improved from yesterday. Although she still has a few bibasilar rales, they are improved from yesterday and the jugular venous distention noted yesterday is likewise significantly improved. Her EKG and cardiac isoenzymes suggest a non-ST segment elevation MN. She had a cardiac catheterization today. That did not show significant changes from her prior exam. Additionally, an echocardiogram is about the same with some wall motion abnormalities inferiorly and laterally. Nonetheless, she is significantly better. Her laboratory work seems stable at the current time. I do not think she needs additional dialysis today but we will schedule her for her routine treatment tomorrow and try to remove the remainder of her fluid overload. Fortunately, her blood pressure is currently stable and she is oxygenating remarkably well. If there is any change in her status during the day that would indicate that it is from volume overload, we can always do an acute dialysis later. (2) Pulmonary edema: (3) CAD (coronary artery disease): Admission and Anticipated Discharge Date Admission Date: June 09, 2020 Subjective Mrs. Arnett was seen in her room this morning. She is already undergone a cardiac catheterization. The indications were a bump in her troponin as well as a change in her electrocardiogram both consistent with a non-ST segment elevation [place]. Her cardiac catheterization showed diffuse, severe coronary disease with many collaterals. Continued medical treatment is recommended. There were no interventions. She was dialyzed yesterday and tolerated her treatment reasonably well although it had to be shortened because of some machine issues. Nonetheless, since that time she has not been short of breath. She is no longer had a cough. She has had no recurrent problems with nausea or heartburn and she has not had any more mid scapular pain. She said that she slept well last night. She has no specific symptoms of uremia or volume overload at the current time. Physical Exam Physical Exam: On physical examination, Mrs. Arnett appears more comfortable than she was yesterday. She was wearing oxygen via mask at 2 L a minute. Her blood pressure was 113/64 with a pulse of 81 and regular. Her respiratory rate is 18 with an oxygen saturation of 95% with her mask. She is afebrile. Her skin shows normal skin turgor. There is no rash or infiltrative skin disease. She does have the ischemic changes of the toes of both feet. New or ischemic changes appear to be present on the right great toe and right second toe. Scabs are noted on the third and fifth toes of the right foot and the second and fourth toes of the left foot. Additionally, she has an incision in the right upper arm from the creation of an AV fistula. [place] are in place. There are areas of ecchymoses present as well. She has no palpable lymphadenopathy. Her head is grossly normal. She does have some residual alopecia from chemotherapy for her breast cancer. Eyes are grossly normal. The ocular fundi were not examined. Ears, nose, mouth and throat are all unremarkable. Her oral mucous membranes are moist. Her neck is supple. She still has some minimal jugular venous distention lying at about 45 degrees. It is improved since yesterday. I hear no carotid bruit and there is no thyromegaly. Her chest continues to show bibasilar rales but they seem to be improved from yesterday. Cardiac exam shows a regular rhythm. S1 and S2 were normal. She has a systolic murmur heard loudest at the apex as well as along the left sternal border radiating toward both the base and the axilla. No diastolic murmurs are heard. I hear no gallop sounds. She has no friction rubs. Her abdomen is nontender. She has no organomegaly or mass. Bowel sounds are normal. No abdominal bruits are noted. Extremities show the ischemic changes described above. She has the right upper arm AV fistula which does appear to be functioning reasonably well. [place] remain in place and she does have some ecchymoses and swelling of the right upper arm. She has no peripheral edema. Her neurologic exam shows no lateralizing findings. She is mentating quite normally. Results & Data ([facility]) Vital Signs (Past 12 Hours) Vital Signs Temp Pulse Pulse Pulse Resp BP BP 06/10/20 10:13 81 18 113/64 06/10/20 09:50 78 20 112/71 06/10/20 09:29 79 20 137/64 06/10/20 09:13 80 16 99/80 L 06/10/20 09:00 85 16 132/65 06/10/20 06:58 88 16 109/82 06/10/20 06:50 82 06/10/20 03:40 36.7 C 82 20 116/81 06/10/20 00:00 81 06/09/20 23:04 36.5 C 81 18 98/63 L Pulse Ox 06/10/20 10:13 95 06/10/20 09:50 94 06/10/20 09:29 98 06/10/20 09:13 95 06/10/20 09:00 95 06/10/20 06:58 94 06/10/20 06:50 06/10/20 03:40 92 06/10/20 00:00 06/09/20 23:04 95 Laboratory Results Laboratory Results - last 24 hr 06/09/20 06/09/20 06/10/20 10:50 19:21 04:45 WBC 15.06 H RBC 2.85 L Hgb 9.0 L Hct 27.8 L MCV 97.5 MCH 31.6 MCHC 32.4 RDW Std Deviation 54.2 H RDW Coeff of Max 15.2 H Plt Count 212 MPV 10.1 Immature Gran % (Auto) 0.3 Neut % (Auto) 89.2 Lymph % (Auto) 7.2 [place] % (Auto) 3.2 Eos % (Auto) 0.0 Baso % (Auto) 0.1 Neut # (Auto) 13.44 H Lymph # (Auto) 1.09 L [place] # (Auto) 0.48 Eos # (Auto) 0.00 Baso # (Auto) 0.01 Immature Gran # (Auto) 0.04 H APTT PTT Ratio Sodium Potassium Chloride Carbon Dioxide Anion Gap BUN Creatinine Est Cr Clr Drug Dosing Est GFR ( Amer) Est GFR (Non-Af Amer) BUN/Creatinine Ratio Glucose Calcium Troponin I 2.680 H* Urine Color Urine Appearance Urine pH Ur Specific [place] Urine Protein Urine Glucose (UA) Urine Ketones Urine Blood Urine Nitrite Urine Bilirubin Urine Urobilinogen Ur Leukocyte Esterase Urine WBC (Auto) Urine RBC (Auto) U Hyaline Cast (Auto) U Epithel Cells (Auto) Urine Bacteria (Auto) Nasal Screen MRSA (PCR) Negative 06/10/20 06/10/20 06/10/20 04:45 04:45 07:10 WBC RBC Hgb Hct MCV MCH MCHC RDW Std Deviation RDW Coeff of Max Plt Count MPV Immature Gran % (Auto) Neut % (Auto) Lymph % (Auto) [place] % (Auto) Eos % (Auto) Baso % (Auto) Neut # (Auto) Lymph # (Auto) [place] # (Auto) Eos # (Auto) Baso # (Auto) Immature Gran # (Auto) APTT 119.6 H* PTT Ratio 4.5 Sodium 133 L Potassium 4.4 Chloride 95 L Carbon Dioxide 29 Anion Gap 9.0 BUN 35 H Creatinine 6.45 H* D Est Cr Clr Drug Dosing 4.9 Est GFR ( Amer) 6.4 Est GFR (Non-Af Amer) 5.5 BUN/Creatinine Ratio 5.5 L Glucose 159 H Calcium 9.0 Troponin I 2.000 H* Urine Color Dark Yellow Urine Appearance Clear Urine pH 7.0 Ur Specific [place] 1.022 Urine Protein 3+ H Urine Glucose (UA) Negative Urine Ketones Trace H Urine Blood Negative Urine Nitrite Negative Urine Bilirubin Negative Urine Urobilinogen Negative Ur Leukocyte Esterase 1+ H Urine WBC (Auto) 10-30 H Urine RBC (Auto) 5-10 H U Hyaline Cast (Auto) 1-5 U Epithel Cells (Auto) >30 H Urine Bacteria (Auto) Negative Nasal Screen MRSA (PCR) PG Care Time/CCT Total # of Minutes Spent Total Time Spent with Patient: Total time spent is greater than 50% in coordination of care (as documented) at patient's floor/unit and/or counseling patient: 35min Coding Level of Care Code 15477 Subseq Hosp Care Lvl 3 Diagnoses End stage renal disease N18.6 Pulmonary edema J81.1 CAD (coronary artery disease) I25.10 Coronary Disease-Associated Artery/Lesion type: [place] artery [place] vs. transplanted heart: [place] heart Associated angina: without angina Time Spent (min) 35 (1) CAD (coronary artery disease) Coronary Disease-Associated Artery/Lesion type: [place] artery [place] vs. transplanted heart: [place] heart Associated angina: without angina Qualified Code(s): I25.10 - Atherosclerotic heart disease of [place] coronary artery without angina pectoris
--- NOTE | 2020-06-10 13:10 | Communication Note ---
Date of Service: June 10, 2020 No pseudoaneurysms noted. There are collections of hematoma in the incisions. Would treat these conservatively at this time. Fistula is patent
[2020-06-10] MEDS: LANSOPRAZOLE 30 MG SOLTAB PO SCH (13:27)
[2020-06-10] MEDS: CHOLECALCIFEROL 1,000 UNITS 25 MCG TAB PO SCH (13:28)
[2020-06-10] MEDS: amLODIPine BESYLATE 5 MG TAB PO SCH (13:28)
[2020-06-10] MEDS: ISOSORBIDE MONO EXTENDED REL 30 MG TABCR PO SCH (13:28)
[2020-06-10] MEDS: CLOPIDOGREL BISULFATE 75 MG TAB PO SCH (13:28)
[2020-06-10] MEDS: EXEMESTANE 25 MG PO SCH (16:40)
[2020-06-10] MEDS: ROSUVASTATIN CALCIUM 10 MG TAB PO SCH (21:11)
[2020-06-10] MEDS: GABAPENTIN 100 MG CAP PO SCH (21:11)
[2020-06-10] MEDS: ASPIRIN 81 MG ECTAB PO SCH (21:11)
[2020-06-10] MEDS: METOPROLOL SUCC 50MG EXT REL TAB PO SCH (21:12)
[2020-06-10] MEDS: traMADol HCL 50 MG TABLET PO PRN (21:13)
--- NOTE | 2020-06-10 21:14 | Cardiology Progress Note ---
Date of Service June 10, 2020 Assessment & Plan (1) CAD (coronary artery disease): 2. Moderate mitral regurgitation 3. ESRD on HD 4. PAD post endovascular intervention 5. Pulmonary edema 6. Anemia 7. Pulmonary hypertension Patient post repeat cardiac cath and ANTHONY today. LV function preserved. Mitral regurgitation moderate with borderline posterior prolapse. Again noted to have severe mid circumflex disease largely unchanged in appearance form 2018. PCI to circumflex would be higher risk due to involvement with aneurysmal OM2. As patient doing well post HD would recommend continued medical management. If recurrent symptoms in the future PCI could be considered. Mitral regurgitation significant but non-severe and no indication for intervention at this time. For now recommend: -- Continue heparin infusion overnight. Can d/c tomorrow -- Continue DAPT with ASA/Clopidogrel --Increase imdur to 60mg daily. Continue current toprol XL -- Volume management per Dr. Kaur and HD. Admission and Anticipated Discharge Date Admission Date: June 09, 2020 Subjective Feeling well this afternoon. No chest pain. Breathing comfortably. Review of Systems Review of Systems: All systems reviewed & are unremarkable except as noted in HPI & below Physical Exam Physical Exam: General: Comfortable, no acute distress Eyes: Sclerae anicteric HENT: Oropharynx clear Neck: Normal carotid upstrokes, no bruits. No JVD. Lungs: Few crackles at bases Cardiac: Regular rate and rhythm, 2/6 at apex Abdomen: Soft, nontender Psych: Alert orient x3, normal affect and mood Extremities/Vascular: --RUE ecchymosis, Left radial artery without hematoma/ecchymosis -- No edema Results & Data ([facility]) Vital Signs (Past 12 Hours) Vital Signs Temp Pulse Pulse Pulse Resp BP BP 06/10/20 19:09 98.2 F 80 18 150/67 H 06/10/20 16:08 79 06/10/20 15:08 98.1 F 83 18 146/70 H 06/10/20 13:45 82 20 134/67 06/10/20 12:25 77 18 152/66 H 06/10/20 11:35 97.5 F L 77 18 150/80 H 06/10/20 11:00 77 18 121/54 L 06/10/20 10:21 79 18 140/74 06/10/20 10:13 81 18 113/64 06/10/20 09:50 78 20 112/71 06/10/20 09:29 79 20 137/64 06/10/20 09:13 80 16 99/80 L Pulse Ox 06/10/20 19:09 95 06/10/20 16:08 06/10/20 15:08 94 06/10/20 13:45 92 06/10/20 12:25 93 06/10/20 11:35 92 06/10/20 11:00 93 06/10/20 10:21 95 06/10/20 10:13 95 06/10/20 09:50 94 06/10/20 09:29 98 06/10/20 09:13 95 PG Care Time/CCT Total # of Minutes Spent Total Time Spent with Patient: Total time spent is greater than 50% in coordination of care (as documented) at patient's floor/unit and/or counseling patient: Coding Level of Care Code 37190 Subseq Hosp Care Lvl 3 Diagnoses CAD (coronary artery disease) I25.10 Associated angina: without angina Coronary Disease-Associated Artery/Lesion type: [place] artery [place] vs. transplanted heart: [place] heart (1) CAD (coronary artery disease) Associated angina: without angina Coronary Disease-Associated Artery/Lesion type: [place] artery [place] vs. transplanted heart: [place] heart Qualified Code(s): I25.10 - Atherosclerotic heart disease of [place] coronary artery without angina pectoris
--- NOTE | 2020-06-10 22:23 | Hospitalist Progress Note ---
Date of Service June 10, 2020 Assessment & Plan (1) Acute respiratory failure: With hypoxia. Due to what appears to be aspiration into the lower respiratory tract with possible associated bilateral pneumonitis. Underlying acute pulmonary edema from fluid overload. Will need to treat both. Continue oxygen supplementation to maintain saturations greater than 90% will order incentive spirometry (2) Aspiration into lower respiratory tract: She may be developing bilateral pneumonitis in addition to the acute pulmonary edema. She is improving. Parenteral steroids ordered along with nebulizer treatments and Zosyn. Serial chest x-ray. Duo nebs. (3) Pulmonary edema: Due to fluid overload. Nephrology consultation appreciated. Hemodialysis to relieve excess fluid. Serial chest x-ray (4) Troponin level elevated: May simply be due to end-stage renal disease but she did have some mid back pain which is concerning. Will trend troponins and obtain cardiac echo. Telemetry. Consult cardiology (5) End stage renal disease: With volume overload. Patient is to have HD today -Renal consultation appreciated (6) CAD (coronary artery disease): Chronic -Continue ASA, Plavix, Metoprolol (7) Dyslipidemia: Chronic -Continue Crestor (8) GERD (gastroesophageal reflux disease): Chronic -Continue lansoprazole (9) Fibromyalgia: Chronic -Continue Gabapentin Ppx - Heparin sq Code - DNR/DNI (10) Hypertension: Chronic -Continue Metoprolol -Continue Amlodipine -Continue Isosorbide mononitrate -Continue to monitor Admission and Anticipated Discharge Date Admission Date: June 09, 2020 Subjective Patient reports feeling better but not at baseline. She does not want to be on oxygen at discharge. Review of Systems Review of Systems: All systems reviewed & are unremarkable except as noted in HPI & below Physical Exam Physical Exam: General-alert and oriented x3, no fevers, no chills HEENT-head atraumatic and normocephalic Neck-no lymphadenopathy or thyromegaly, trachea midline Chest-diffuse bilateral inspiratory and expiratory rhonchi Cardiac-regular rate and rhythm, normal S1 and S2, no murmurs Abdomen-normal bowel sounds, nontender, no hepatosplenomegaly Extremities-no cyanosis, clubbing, or edema Neuro-cranial nerves II through XII intact, motor and sensory function,no focal deficits Psych-normal affect, normal mood Results & Data Results & Data ([facility]) Vital Signs (Past 12 Hours) Vital Signs Temp Pulse Pulse Resp BP Pulse Ox 06/10/20 19:09 36.8 C 80 18 150/67 H 95 06/10/20 16:08 79 06/10/20 15:08 36.7 C 83 18 146/70 H 94 06/10/20 13:45 82 20 134/67 92 06/10/20 12:25 77 18 152/66 H 93 06/10/20 11:35 36.4 C L 77 18 150/80 H 92 06/10/20 11:00 77 18 121/54 L 93 PG Care Time/CCT Total # of Minutes Spent Total Time Spent with Patient: Total time spent is greater than 50% in coordination of care (as documented) at patient's floor/unit and/or counseling patient: Coding Level of Care Code 52029 Subseq Hosp Care Lvl 3 Diagnoses Acute respiratory failure J96.00 Aspiration into lower respiratory tract T17.800A Pulmonary edema J81.1 Troponin level elevated R77.8 End stage renal disease N18.6 CAD (coronary artery disease) I25.10 Associated angina: without angina Coronary Disease-Associated Artery/Lesion type: [place] artery [place] vs. transplanted heart: [place] heart Dyslipidemia E78.5 GERD (gastroesophageal reflux disease) K21.9 Esophagitis presence: esophagitis presence not specified Fibromyalgia M79.7 Hypertension I15.0 Hypertension type: renovascular hypertension Time Spent (min) 35 (1) CAD (coronary artery disease) Associated angina: without angina Coronary Disease-Associated Artery/Lesion type: [place] artery [place] vs. transplanted heart: [place] heart Qualified Code(s): I25.10 - Atherosclerotic heart disease of [place] coronary artery without angina pectoris (2) GERD (gastroesophageal reflux disease) Esophagitis presence: esophagitis presence not specified Qualified Code(s): K21.9 - Gastro-esophageal reflux disease without esophagitis (3) Hypertension Hypertension type: renovascular hypertension Qualified Code(s): I15.0 - Renovascular hypertension
--- NOTE | 2020-06-10 22:44 | XCELERA ---
[id number] \\[id number]
--- NOTE | 2020-06-11 05:22 | Electrocardiogram Report ---
Test Reason : Blood Pressure : / mmHG Vent. Rate : 085 BPM Atrial Rate : 085 BPM P-R Int : 112 ms QRS Dur : 084 ms QT Int : 392 ms P-R-T Axes : 014 043 -05 degrees QTc Int : 466 ms Normal sinus rhythm Nonspecific T wave abnormality When compared with ECG of 09-JUN-2020 03:45, T wave inversion more evident in Inferior leads Confirmed by Elias Watson ([id number]) on 06/11/2020 5:22:17 AM Referred By: REFERRED SELF Confirmed By:Elias Watson
[2020-06-11] MEDS: methylPREDNISolone 60 MG in SYRINGE 0 ML IV SCH ×4 (06:31→23:17)
[2020-06-11] MEDS ORDERED: SODIUM CHLORIDE 0.9% 1000ML 1,000 ML IV PRN (07:00)
[2020-06-11] MEDS ORDERED: HEPARIN SOD (PORCINE) 1000 UNIT/ML IV ONE (07:00)
[2020-06-11 07:05] LABS: Hematocrit (blood only) 24.5 % (37-47); Hemoglobin 8.2 g/dL (12.0-16.0); Immature Granulocytes # (auto) 0.09 K/uL (0.00-0.02); Immature Granulocytes % (auto) 0.5 %; Lymphocytes # (auto) 1.32 K/uL (1.2-3.4); Lymphocytes % (auto) 7.3 %; Mean Corpuscular Hemoglobin 32.5 pg (25-34); Mean Corpuscular Hgb Conc 33.5 g/dL (32-36); Mean Corpuscular Volume 97.2 fL (80-100); Monocytes # (auto) 0.67 K/uL (0.11-0.59); Monocytes % (auto) 3.7 %; Neutrophils # (auto) 15.94 K/uL (1.4-6.5); Neutrophils % (auto) 88.5 %; Platelet Count 253 K/uL (130-400); RDW Coefficient of Variation 15.3 % (11.5-14.5); RDW Standard Deviation 54.2 fL (36.4-46.3); Red Blood Count 2.52 M/uL (4.2-5.4); White Blood Count 18.02 K/uL (4.8-10.8)
[2020-06-11] MEDS: PIPERACILLIN/TAZOBACTAM 3.375 GM in DEXTROSE 5% 100 ML IV SCH ×2 (07:56→20:44)
[2020-06-11] MEDS: CHOLECALCIFEROL 1,000 UNITS 25 MCG TAB PO SCH (08:02)
[2020-06-11] MEDS: LANSOPRAZOLE 30 MG SOLTAB PO SCH (08:03)
[2020-06-11] MEDS: traMADol HCL 50 MG TABLET PO PRN ×2 (08:08→20:43)
[2020-06-11 08:13] LABS: BUN Creatinine Ratio 8.3 (10-20); Calcium 8.5 mg/dl (8.5-10.1); Creatinine Clr Calc Pharmacy 3.7 ml/min; Est GFR (African American) 4.5; Est GFR (Non-African American) 3.9; Potassium 5.1 mmol/L (3.5-5.1); Troponin I 0.955 ng/ml (0-0.045)
[2020-06-11] MEDS: amLODIPine BESYLATE 5 MG TAB PO SCH (09:16)
[2020-06-11] MEDS: ISOSORBIDE MONO EXTENDED REL 30 MG TABCR PO SCH (09:30)
[2020-06-11] MEDS: EXEMESTANE 25 MG PO SCH (09:30)
[2020-06-11] MEDS: CLOPIDOGREL BISULFATE 75 MG TAB PO SCH (09:31)
[2020-06-11] MEDS: HEPARIN SOD (PORCINE) 1000 UNIT/ML IV SCH (10:14)
--- NOTE | 2020-06-11 10:21 | Dialysis Progress Note ---
Date of Service June 11, 2020 Assessment & Plan (1) End stage renal disease: Mrs. Arnett appears to be doing relatively well. She still has some volume overload as manifested by the rales in her chest at both bases. Lying down this morning she did have some shortness of breath and a mild burning in her chest which subsided when she sat up. She also had a mild cough that improved when she sat up as well. I think that those changes are related to her volume overload. We are planning dialysis this morning. Hopefully, the removal of 3 L of fluid will resolve any problems of shortness of breath that she has. No other intervention for now from the renal standpoint other than to continue with her usual medications. Assuming we can resolve her volume overload with fluid removal with dialysis today, she may be able to be discharged tomorrow, at least from the renal standpoint. If so, all continue to garbage pick up man her care at the [facility] dialysis unit. (2) Arteriosclerotic cardiovascular disease (ASCVD): (3) Pulmonary edema: Admission and Anticipated Discharge Date Admission Date: June 09, 2020 Subjective Mrs. Arnett says that she is feeling relatively well this morning. However, when she awakened this morning she still noted a mild cough which was nonproductive and she did feel somewhat short of breath and had a slight burning sensation in her chest. She said that she was not feeling that well. She got out of bed and sat in a chair and all of her symptoms seem to disappear. She had breakfast and tolerated it well. She said that her appetite is at its baseline. However, she is now not at all short of breath in the sensation that she had in her chest appears to have resolved. She has no other immediate complaints. She tolerated her cardiac catheterization yesterday quite well. She does have some discomfort in her right great toe and, to a lesser extent, her right second toe. Her right arm does not bother her at the site of the creation of her AV fistula. Her review of systems is otherwise unremarkable at the current time. Physical Exam Physical Exam: On physical examination, Mrs. Arnett appears as a chronically ill woman. She was sitting up in a chair and appeared otherwise well and certainly in no acute distress. Her blood pressure was 144/79 seated in the left arm. Her pulse was 83 and regular. Respiratory rate was 18 and her pulse ox 90% on room air. At the time I saw her she was wearing oxygen via nasal cannula. She is afebrile (36.7 degrees). 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 Her skin turgor is normal. She has acute ischemic changes of the great toe of the right foot particularly the very tip of the great toe. Similar changes are noted on the second toe of the right foot. She has small scabs on the tip of the third and fifth toe of the right foot. On the left foot, she has scabs on the tip of the second and fourth toes. She has no palpable lymphadenopathy. Her head is normal other than the hair changes. Eyes are grossly normal. The ocular fundi were not examined. Ears, nose, mouth and throat are unremarkable. Her oral mucous membranes are moist. Her neck is supple. She has mild jugular venous distention sitting up at 90 degrees. She has no carotid bruit or thyromegaly. Her chest continues to show some bibasilar rales but definitely improved from admission. Cardiac exam shows a regular rhythm. S1 and S2 were normal. She has a systolic murmur at the left sternal border but also heard at the apex and base. Her abdomen is nontender. There is no organomegaly or mass. Extremities show the ischemic changes of her toes described above. She has a right upper arm AV fistula. [place] are in place. Her right upper arm is somewhat swollen and ecchymotic. Her neurologic exam shows no lateralizing changes. Results & Data ([facility]) Vital Signs (Past 12 Hours) Vital Signs Temp Pulse Pulse Pulse Resp BP Pulse Ox 06/11/20 07:23 36.7 C 83 18 144/79 H 90 06/11/20 07:00 91 H 06/11/20 03:38 36.7 C 87 18 112/69 96 06/11/20 00:12 81 06/10/20 23:38 36.6 C 89 18 161/72 H 91 Laboratory Results Laboratory Results - last 24 hr 06/11/20 06/11/20 06/11/20 06:44 06:44 06:44 WBC 18.02 H RBC 2.52 L Hgb 8.2 L Hct 24.5 L MCV 97.2 MCH 32.5 MCHC 33.5 RDW Std Deviation 54.2 H RDW Coeff of Max 15.3 H Plt Count 253 MPV 10.0 Immature Gran % (Auto) 0.5 Neut % (Auto) 88.5 Lymph % (Auto) 7.3 [place] % (Auto) 3.7 Eos % (Auto) 0.0 Baso % (Auto) 0.0 Neut # (Auto) 15.94 H Lymph # (Auto) 1.32 [place] # (Auto) 0.67 H Eos # (Auto) 0.00 Baso # (Auto) 0.00 Immature Gran # (Auto) 0.09 H Sodium 128 L Potassium 5.1 D Chloride 90 L Carbon Dioxide 24 Anion Gap 14.0 H BUN 71 H D Creatinine 8.60 H* D Est Cr Clr Drug Dosing 3.7 Est GFR ( Amer) 4.5 Est GFR (Non-Af Amer) 3.9 BUN/Creatinine Ratio 8.3 L Glucose 135 H Calcium 8.5 Troponin I 0.955 H* Cancelled [facility] Procedure Codes ([place]) Renal/Urologic Renal/Urologic: 39276 Hemodialysis, One Evaluation Coding Level of Care Code 29521 Subseq Hosp Care [facility] 3 Diagnoses End stage renal disease N18.6 Arteriosclerotic cardiovascular disease (ASCVD) I25.10 Pulmonary edema J81.0 Chronicity: acute CPT Codes Renal/Urologic - Renal/Urologic: 14376 Hemodialysis, One Evaluation ([id number]) (1) Pulmonary edema Chronicity: acute Qualified Code(s): J81.0 - Acute pulmonary edema
--- NOTE | 2020-06-11 14:20 | Cardiology Progress Note ---
Date of Service June 11, 2020 Assessment & Plan (1) CAD (coronary artery disease): 2. Moderate mitral regurgitation 3. ESRD on HD 4. PAD post endovascular intervention 5. Pulmonary edema 6. Anemia 7. Pulmonary hypertension No recurrent chest pain. Troponin has downtrended. No plans for additional coronary intervention at this time. Continue DAPT with ASA, clopidogrel. Increase Imdur to 60 mg daily, continue current Toprol. Patient's toe pain, discoloration hasd been improving. More recently though has had worsening discoloration, discomfort in right great toe. Remainder of the toes unchanged and appear well-perfused. She has known PAD with known diffuse friable atherosclerotic plaque in her aorta again identified on ANTHONY. Concern worsening of great toe may be secondary to emboli. For now recommend continued monitoring. Consideration given to oral anticoagulation. Discussed with patient and will hold off in the setting of ESRD, recent fistula. From a cardiovascular standpoint okay with discharge tomorrow. Follow-up with me in 1 to 2 weeks. Admission and Anticipated Discharge Date Admission Date: June 09, 2020 Subjective Patient seen at dialysis today. Reports feeling well with no shortness of breath. States initially when woke up had some shortness of breath and feeling like her "chest was raw." Symptoms somewhat similar to what she had prior to presentation but less severe. Symptoms resolved when she sat up. Symptoms have not recurred Review of Systems Review of Systems: All systems reviewed & are unremarkable except as noted in HPI & below Physical Exam Physical Exam: General: Comfortable, no acute distress Eyes: Sclerae anicteric HENT: Oropharynx clear Neck: Normal carotid upstrokes, no bruits. No JVD. Lungs: Clear anteriorly Cardiac: Regular rate and rhythm Abdomen: Soft, nontender Psych: Alert orient x3, normal affect and mood Extremities/Vascular: --RUE ecchymosis, Left radial artery without hematoma/ecchymosis --Nonpalpable DP/PT pulse on the right, purplish discoloration of right great toe Results & Data ([facility]) Vital Signs (Past 12 Hours) Vital Signs Temp Pulse Pulse Pulse Pulse Resp BP 06/11/20 13:40 84 119/52 L 06/11/20 13:20 65 127/67 06/11/20 13:00 82 102/59 L 06/11/20 12:40 65 108/77 06/11/20 12:22 67 168/74 H 06/11/20 12:02 86 138/63 06/11/20 11:40 87 142/63 H 06/11/20 11:20 80 190/65 H 06/11/20 11:00 82 186/66 H 06/11/20 10:28 80 157/56 H 06/11/20 10:20 98.6 F 82 06/11/20 07:23 98.1 F 83 18 06/11/20 07:00 91 H 06/11/20 03:38 98.1 F 87 18 BP Pulse Ox 06/11/20 13:40 06/11/20 13:20 06/11/20 13:00 06/11/20 12:40 06/11/20 12:22 06/11/20 12:02 06/11/20 11:40 06/11/20 11:20 06/11/20 11:00 06/11/20 10:28 06/11/20 10:20 06/11/20 07:23 144/79 H 90 06/11/20 07:00 06/11/20 03:38 112/69 96 PG Care Time/CCT Total # of Minutes Spent Total Time Spent with Patient: Total time spent is greater than 50% in coordination of care (as documented) at patient's floor/unit and/or counseling patient: Coding Level of Care Code 16415 Subseq Hosp Care Lvl 3 Diagnoses CAD (coronary artery disease) I25.10 Associated angina: without angina Coronary Disease-Associated Artery/Lesion type: [place] artery [place] vs. transplanted heart: [place] heart (1) CAD (coronary artery disease) Associated angina: without angina Coronary Disease-Associated Artery/Lesion type: [place] artery [place] vs. transplanted heart: [place] heart Qualified Code(s): I25.10 - Atherosclerotic heart disease of [place] coronary artery without angina pectoris
[2020-06-11] MEDS: ROSUVASTATIN CALCIUM 10 MG TAB PO SCH (20:42)
[2020-06-11] MEDS: ASPIRIN 81 MG ECTAB PO SCH (20:42)
[2020-06-11] MEDS: GABAPENTIN 100 MG CAP PO SCH (20:43)
[2020-06-11] MEDS: METOPROLOL SUCC 50MG EXT REL TAB PO SCH (20:45)
--- NOTE | 2020-06-11 22:50 | Hospitalist Progress Note ---
Date of Service June 11, 2020 Assessment & Plan (1) Acute respiratory failure: With hypoxia. Due to what appears to be aspiration into the lower respiratory tract with possible associated bilateral pneumonitis. Underlying acute pulmonary edema from fluid overload. Will need to treat both. Continue oxygen supplementation to maintain saturations greater than 90% ordered incentive spirometry. (2) Aspiration into lower respiratory tract: She may be developing bilateral pneumonitis in addition to the acute pulmonary edema. She is improving. Parenteral steroids ordered along with nebulizer treatments and Zosyn. Serial chest x-ray. Duo nebs. will transition to orals at discharge. (3) Pulmonary edema: Due to fluid overload. Nephrology consultation appreciated. Hemodialysis to relieve excess fluid. Serial chest x-ray. Patient is improving. (4) Troponin level elevated: May simply be due to end-stage renal disease but she did have some mid back pain which is concerning. tROP PEAKED OVER 2, LIKELY EXACERBATED BY RENAL DISEASE. S/P cath. appreciate cardio recommendations. (5) End stage renal disease: With volume overload. Patient is to have HD today -Renal consultation appreciated (6) CAD (coronary artery disease): Chronic -Continue ASA, Plavix, Metoprolol (7) Dyslipidemia: Chronic -Continue Crestor (8) GERD (gastroesophageal reflux disease): Chronic -Continue lansoprazole (9) Fibromyalgia: Chronic -Continue Gabapentin Ppx - Heparin sq Code - DNR/DNI (10) Hypertension: Chronic -Continue Metoprolol -Continue Amlodipine -Continue Isosorbide mononitrate -Continue to monitor Admission and Anticipated Discharge Date Admission Date: June 09, 2020 Subjective 79 YO REPORTS FEELING WELL She has no complaints. Review of Systems Review of Systems: All systems reviewed & are unremarkable except as noted in HPI & below Physical Exam Physical Exam: General-alert and oriented x3, no fevers, no chills HEENT-head atraumatic and normocephalic Neck-no lymphadenopathy or thyromegaly, trachea midline Chest-diffuse bilateral inspiratory and expiratory rhonchi Cardiac-regular rate and rhythm, normal S1 and S2, no murmurs Abdomen-normal bowel sounds, nontender, no hepatosplenomegaly Extremities-no cyanosis, clubbing, or edema Neuro-cranial nerves II through XII intact, motor and sensory function,no focal deficits Psych-normal affect, normal mood Results & Data Results & Data ([facility]) Vital Signs (Past 12 Hours) Vital Signs Temp Pulse Pulse Pulse Resp BP BP 06/11/20 19:30 36.5 C 86 17 108/52 L 06/11/20 18:39 06/11/20 15:38 36.5 C 79 18 146/86 H 06/11/20 15:20 83 06/11/20 14:49 37.0 C 80 151/76 H 06/11/20 13:40 84 119/52 L 06/11/20 13:20 65 127/67 06/11/20 13:00 82 102/59 L 06/11/20 12:40 65 108/77 06/11/20 12:22 67 168/74 H 06/11/20 12:02 86 138/63 06/11/20 11:40 87 142/63 H 06/11/20 11:20 80 190/65 H 06/11/20 11:00 82 186/66 H Pulse Ox 06/11/20 19:30 92 06/11/20 18:39 98 06/11/20 15:38 99 06/11/20 15:20 06/11/20 14:49 06/11/20 13:40 06/11/20 13:20 06/11/20 13:00 06/11/20 12:40 06/11/20 12:22 06/11/20 12:02 06/11/20 11:40 06/11/20 11:20 06/11/20 11:00 PG Care Time/CCT Total # of Minutes Spent Total Time Spent with Patient: Total time spent is greater than 50% in coordination of care (as documented) at patient's floor/unit and/or counseling patient: Coding Level of Care Code 48478 Subseq Hosp Care Lvl 3 Diagnoses Acute respiratory failure J96.00 Aspiration into lower respiratory tract T17.800A Pulmonary edema J81.1 Troponin level elevated R77.8 End stage renal disease N18.6 CAD (coronary artery disease) I25.10 Associated angina: without angina Coronary Disease-Associated Artery/Lesion type: [place] artery [place] vs. transplanted heart: [place] heart Dyslipidemia E78.5 GERD (gastroesophageal reflux disease) K21.9 Esophagitis presence: esophagitis presence not specified Fibromyalgia M79.7 Hypertension I15.0 Hypertension type: renovascular hypertension Time Spent (min) 35 (1) CAD (coronary artery disease) Associated angina: without angina Coronary Disease-Associated Artery/Lesion type: [place] artery [place] vs. transplanted heart: [place] heart Qualified Code(s): I25.10 - Atherosclerotic heart disease of [place] coronary artery without angina pectoris (2) GERD (gastroesophageal reflux disease) Esophagitis presence: esophagitis presence not specified Qualified Code(s): K21.9 - Gastro-esophageal reflux disease without esophagitis (3) Hypertension Hypertension type: renovascular hypertension Qualified Code(s): I15.0 - Renovascular hypertension
[2020-06-12] MEDS: methylPREDNISolone 60 MG in SYRINGE 0 ML IV SCH (06:31)
--- NOTE | 2020-06-12 06:42 | Electrocardiogram Report ---
Test Reason : Blood Pressure : / mmHG Vent. Rate : 085 BPM Atrial Rate : 085 BPM P-R Int : 138 ms QRS Dur : 088 ms QT Int : 390 ms P-R-T Axes : 053 037 007 degrees QTc Int : 464 ms Normal sinus rhythm Possible Left atrial enlargement Nonspecific ST abnormality Abnormal ECG When compared with ECG of 09-JUN-2020 16:15, No significant change was found Confirmed by Elias Watson ([id number]) on 06/12/2020 6:42:26 AM Referred By: REFERRED SELF Confirmed By:Elias Watson
[2020-06-12 07:09] LABS: Hematocrit (blood only) 24.5 % (37-47); Hemoglobin 8.2 g/dL (12.0-16.0); Immature Granulocytes # (auto) 0.05 K/uL (0.00-0.02); Immature Granulocytes % (auto) 0.3 %; Lymphocytes # (auto) 0.93 K/uL (1.2-3.4); Lymphocytes % (auto) 5.7 %; Mean Corpuscular Hemoglobin 32.8 pg (25-34); Mean Corpuscular Hgb Conc 33.5 g/dL (32-36); Mean Platelet Volume 9.8 fL (7.4-10.4); Monocytes # (auto) 0.61 K/uL (0.11-0.59); Monocytes % (auto) 3.7 %; Neutrophils # (auto) 14.78 K/uL (1.4-6.5); Neutrophils % (auto) 90.3 %; Platelet Count 291 K/uL (130-400); RDW Coefficient of Variation 15.5 % (11.5-14.5); RDW Standard Deviation 55.1 fL (36.4-46.3); White Blood Count 16.37 K/uL (4.8-10.8)
[2020-06-12 07:39] VITALS: BP 114/62; TEMP 97.7; O2SAT 95
[2020-06-12 07:40] LABS: BUN Creatinine Ratio 8.7 (10-20); Calcium 9.2 mg/dl (8.5-10.1); Creatinine Clr Calc Pharmacy 5.8 ml/min; Est GFR (African American) 7.9; Est GFR (Non-African American) 6.8
[2020-06-12] MEDS: PIPERACILLIN/TAZOBACTAM 3.375 GM in DEXTROSE 5% 100 ML IV SCH (08:05)
[2020-06-12] MEDS: amLODIPine BESYLATE 5 MG TAB PO SCH (08:06)
[2020-06-12] MEDS: CHOLECALCIFEROL 1,000 UNITS 25 MCG TAB PO SCH (08:06)
[2020-06-12] MEDS: LANSOPRAZOLE 30 MG SOLTAB PO SCH (08:06)
[2020-06-12] MEDS: CLOPIDOGREL BISULFATE 75 MG TAB PO SCH (08:06)
[2020-06-12] MEDS: EXEMESTANE 25 MG PO SCH (08:10)
[2020-06-12] MEDS: ISOSORBIDE MONO EXTENDED REL 30 MG TABCR PO SCH (08:10)
--- NOTE | 2020-06-12 11:59 | Nephrology Progress Note ---
Date of Service June 12, 2020 Assessment & Plan (1) End stage renal disease: Mrs. Arnett has end-stage renal disease on hemodialysis Sunday, , Sunday at [facility]. She has been otherwise doing well, her volume status improved significantly, she remained stable from cardiac standpoint. Had dialysis yesterday with 3 L UF and improvement in volume status. Overall otherwise doing well. -- Okay to be discharged, she will have outpatient dialysis on Sunday. continue dialysis via tunneled dialysis catheter quality fistula maturing -- Right arm nephrology precaution will follow while inpatient (2) Arteriosclerotic cardiovascular disease (ASCVD): (3) Pulmonary edema: Admission and Anticipated Discharge Date Admission Date: June 09, 2020 Subjective Adriana was seen examined in her room this morning. Overall feeling better, denies any further episode of shortness of breath chest pain. Appetite has been decent. Blood pressure well controlled. Had dialysis yesterday, had 3 L UF tolerated well, volume status much improved. Review of Systems Review of Systems: All systems reviewed & are unremarkable except as noted in Subjective Physical Exam Constitutional: well developed and well nourished; no acute distress Respiratory: normal respiratory effort, lungs clear to auscultation Cardiovascular: RRR, no murmur, no edema Extremities: + vascular access device ( Right IJ tunneled dialysis catheter area with no erythema or discharge) and + AV fistula ( Right brachiocephalic AV fistula, mild swelling which improved from befor) Neurologic: moves all extremities and awake; not confused Psychiatric: A+Ox3, euthymic affect Results & Data ([facility]) Vital Signs (Past 12 Hours) Vital Signs Temp Pulse Pulse Pulse Resp BP Pulse Ox 06/12/20 07:38 36.5 C 82 20 114/62 95 06/12/20 07:10 81 06/12/20 03:10 36.9 C 75 17 122/85 99 06/11/20 23:57 87 PG Care Time/CCT Total # of Minutes Spent Total Time Spent with Patient: Total time spent is greater than 50% in coordination of care (as documented) at patient's floor/unit and/or counseling patient: Coding Level of Care Code 76498 Subseq Hosp Care Lvl 2 Diagnoses End stage renal disease N18.6 Arteriosclerotic cardiovascular disease (ASCVD) I25.10 Pulmonary edema J81.0 Chronicity: acute (1) Pulmonary edema Chronicity: acute Qualified Code(s): J81.0 - Acute pulmonary edema
[2020-06-12 12:14] VITALS: PULSE 75
[2020-06-12 14:48] LABS: Potassium 4.1 mmol/L (3.5-5.1)
--- NOTE | 2020-06-18 10:37 | Coding Query ---
To promote full compliance with coding requirements relating to patient care, provider participation is requested in all cases of certified medical coder uncertainty. Please assist us with the question(s) below: Coding Question(s): The diagnosis below was documented in the Cardiac Catheterization on 06/11/19 and in Nephrology Progress Note 06/10/20, then subsequently fell off all further documentation. Please indicate if it is still a possible diagnosis or ruled out. Physician's Response(s): NON STEMI ( ) Diagnosed and POA ( ) Diagnosed and not POA ( x ) Ruled out ( ) Other (please specify) MTDD
--- NOTE | 2020-06-18 10:42 | Coding Query ---
PRESENT ON ADMISSION QUERY To promote full compliance with coding requirements relating to pateint care, physician participation is requested in all cases of insulation machine operator uncertainty. Please assist us with the question(s) below: Please place an X within the parenthesis (x). The following diagnosis(es) listed in this patient's medical record require physician assistance to determine if they were present on admission (POA) or not. Please advise for each diagnosis whether it was present on admission, not present on admission, or if it was clinically undetermined. 1. ASPIRATION INTO LOWER RESPIRATORY TRACT (documentation begins on Progress Note 06/09/20) (x ) Present On Admission ( ) Not Present On Admission ( ) Clinically Undetermined 2. BILATERAL PNEUMONITIS (documentation begins on Progress Note 06/09/20 with, " She may be developing bilateral pneumonitis" ( x) Present On Admission ( ) Not Present On Admission ( ) Clinically Undetermined 3. Please Specify further below, in your clinical opinion, regarding the Bilateral Pneumonitis. ( x) likely Aspiration Pneumonitis ( ) likely other Pneumonitis, Please Specify ( ) Pneumonitis, Unspecified Thank you Eve Matson *Definition of the present on admission (POA)-Present on admission is defined as present at the time the order for inpatient admission occurs. Conditions that develop during an outpatient encounter prior to a written order for inpatient admission (including emergency department, observation, or outpatient surgery) are considered present on admission. MTDD
--- NOTE | 2020-06-20 20:46 | Discharge Summary ---
Date of Service June 12, 2020 Admission HPI Per Admitting Provider Adriana Arnett is a pleasant 79yo female with history of ESRD on HD q M/W/F (started 5 months ago), AAA, HTN, HLP presenting with SOB. Patient reports waking from sleep last night feeling short of breath. She has had a moist cough as well as some nausea. Denies fever/chills/purulent sputum/CP/palpitations/diarrhea/constipation Had AV fistula placed by Dr. Diaz 2 weeks ago - surgery well tolerated Dry weight 110# She has received both Covid-19 vaccines - [employer] Principal Diagnosis acute resp. failure Discharge Exam General-alert and oriented x3, no fevers, no chills HEENT-head atraumatic and normocephalic Neck-no lymphadenopathy or thyromegaly, trachea midline Chest-diffuse bilateral inspiratory and expiratory rhonchi Cardiac-regular rate and rhythm, normal S1 and S2, no murmurs Abdomen-normal bowel sounds, nontender, no hepatosplenomegaly Extremities-no cyanosis, clubbing, or edema Neuro-cranial nerves II through XII intact, motor and sensory function,no focal deficits Psych-normal affect, normal mood Discharge Data Allergies Allergy/AdvReac Type Severity Reaction Status Date / Time hydrocodone Allergy Intermediate RASH, HIVES Verified 06/09/20 04:23 Sulfa (Sulfonamide AdvReac Intermediate "SULFA Verified 06/09/20 04:23 Antibiotics) DRUGS": N/V spironolactone AdvReac Mild GI Verified 06/09/20 04:23 SYMPTOMS,NAUSEA AND VOMITING Aldactazide AdvReac Unknown GI Unverified 07/24/17 10:20 SYMPTOMS,NAUSEA AND VOMITING hydrochlorothiazide AdvReac Unknown GI Verified 06/09/20 04:23 SYMPTOMS,NAUSEA AND VOMITING Consultations 06/09/20 05:52 ED Decision to Admit Stat 06/09/20 07:37 Consult Nephrology Routine 06/09/20 11:38 Consult Cardiology Routine Procedures Performed Operation Date: 06/10/20 07:00 Actual Procedures p Echo Transesophageal - Elias Watson MD s Echo Doppler Complete - Elias Watson MD s Echo Color Flow - Elias Watson MD Operation Date: 06/10/20 08:00 Actual Procedures p Cath, Left with Cors and Vent - Sarbjit Pfeiffer MD s Cineradiography w/Routine Exam - Sarbjit Pfeiffer MD Ordered Studies 06/09/20 15:30 US hemodialysis access Routine 06/10/20 07:58 Cath Imgs for PACS use only Routine Hospital Course (1) Acute respiratory failure: With hypoxia. Due to what appears to be aspiration into the lower respiratory tract with possible associated bilateral pneumonitis. Underlying acute pulmonary edema from fluid overload. Will need to treat both. Continue oxygen supplementation to maintain saturations greater than 90% ordered incentive spirometry. Feeling better on day of discharge. (2) Aspiration into lower respiratory tract: She may be developing bilateral pneumonitis in addition to the acute pulmonary edema. She is improving. Parenteral steroids ordered along with nebulizer treatments and Zosyn. Serial chest x-ray. Duo nebs. will transition to orals at discharge. (3) Pulmonary edema: Due to fluid overload. Nephrology consultation appreciated. Hemodialysis to relieve excess fluid. Serial chest x-ray. Patient is improving. (4) Troponin level elevated: May simply be due to end-stage renal disease but she did have some mid back pain which is concerning. tROP PEAKED OVER 2, LIKELY EXACERBATED BY RENAL DISEASE. S/P cath. appreciate cardio recommendations. (5) End stage renal disease: With volume overload. Patient is to have HD today -Renal consultation appreciated (6) CAD (coronary artery disease): Chronic -Continue ASA, Plavix, Metoprolol (7) Dyslipidemia: Chronic -Continue Crestor (8) GERD (gastroesophageal reflux disease): Chronic -Continue lansoprazole (9) Fibromyalgia: Chronic -Continue Gabapentin Ppx - Heparin sq Code - DNR/DNI (10) Hypertension: Chronic -Continue Metoprolol -Continue Amlodipine -Continue Isosorbide mononitrate -Continue to monitor Total Time Total Time Spent Total Time Spent (In Minutes): 32 Total Time Includes: Examination of the Patient, Discharge Planning and Medication Reconciliation Discharge Plan Discharge Items Patient Disposition: Home - Self-Care Reason For Visit: HYPOXIA Discharge Diagnosis: aspiration pneumonia Activity: Resume your previous activity Non-emergency contact: Primary Care Provider Call non-emergency contact if: you have any medication questions Follow-up/Referrals: Johnny Rai MD [Primary Care Provider] - 06/17/20 12:30 pm Diet: Dialysis Renal Addtl Attending Provider Instructions: Continue DAPT with ASA, clopidogrel. Increase Imdur to 60 mg daily, continue current Toprol. Follow-up with me in 1 to 2 weeks. WILL CONTINUE antibiotics for 3 more days and steroid taper. Continue regular schedule of dialysis Pending Studies at Discharge: No Stand-Alone Forms: My [facility] [employer], Smoking Cessation Medications and DC Order Prescriptions: New prednisone 10 mg tablet 10 mg PO DAILY Qty: 20 RF: 0 isosorbide mononitrate 60 mg tablet extended release 24 hr 60 mg PO DAILY@1200 Qty: 30 RF: 0 Continued cholecalciferol (vitamin D3) 2,000 unit capsule 2,000 units PO QAM RF: 0 clopidogrel 75 mg tablet 75 mg PO QAM Qty: 90 RF: 3 metoprolol succinate 50 mg tablet extended release 24 hr 50 mg PO HS Qty: 90 RF: 3 rosuvastatin 10 mg tablet 10 mg PO HS Qty: 90 RF: 3 tramadol 50 mg tablet 50 mg PO Q12 PRN (Reason: Pain) Qty: 60 RF: 0 exemestane 25 mg tablet 25 mg PO DAILY@1200 RF: 0 coenzyme Q10 200 mg capsule 200 mg PO QAM RF: 0 ondansetron 4 mg tablet,disintegrating 4 mg PO Q6H PRN (Reason: nausea and vomiting) Qty: 90 RF: 0 lansoprazole 30 mg capsule,delayed release(DR/EC) 30 mg PO DAILY Qty: 30 RF: 0 amlodipine 10 mg tablet 10 mg PO QAM RF: 0 gabapentin 100 mg capsule 200 mg PO HS RF: 0 aspirin [Enteric Coated Aspirin] 81 mg tablet,delayed release (DR/EC) 81 mg PO HS RF: 0 No Action buspirone 5 mg tablet 5 mg PO DAILY Qty: 20 RF: 3 nystatin 100,000 unit/mL suspension 500,000 unit buccal QID 10 Days Qty: 200 RF: 3 Discharge Orders: Discharge Order (Routine); Ordered 06/12/20 Ordered By: Mango Carver Admission Data Admit Date/Time: 06/09/20 06:16 Attending Provider: Mango Carver Admit Provider: Radha Felix Primary Care Provider: Johnny Rai Other Providers: Terrance Kaur ; Elias Watson ; Sarbjit Pfeiffer ; Prudencio Diaz ; Cheyanne Alexandre Other Interventions: Discharge Summary Assessment (RN) Last Done: 06/12/20 12:11 Coding Level of Care Code D/C Day Management >30 mins Diagnoses Acute respiratory failure J96.00 Aspiration into lower respiratory tract T17.800A Pulmonary edema J81.1 Troponin level elevated R77.8 End stage renal disease N18.6 CAD (coronary artery disease) I25.10 Coronary Disease-Associated Artery/Lesion type: [place] artery [place] vs. transplanted heart: [place] heart Associated angina: without angina Dyslipidemia E78.5 GERD (gastroesophageal reflux disease) K21.9 Esophagitis presence: esophagitis presence not specified Fibromyalgia M79.7 Hypertension I15.0 Hypertension type: renovascular hypertension Time Spent (min) 32
== END 2020-06-12 13:10 | disposition home or self-care (01) | DRG 177 ==
LOC: ED 03:32 → 2W 06:16 → SUATTDRO 06:16 → 2W 07:17 → 2S 12:41

== ENCOUNTER 2020-06-30 03:27 | Inpatient (IN) ==
--- NOTE | 2020-06-30 04:20 | Emergency Department Note ---
History of Present Illness General Chief complaint: Respiratory Problems Stated complaint: CAN'T CATCH BREATH,CHEST PAIN Time Seen by Provider: 06/30/20 03:48 Source: patient and family Mode of arrival: ambulatory Limitations: no limitations History of Present Illness Provider complaint: shortness of breath Onset (ago): hour(s) 5 Location: chest Radiation: back and extremity Severity: moderate Pain Consistency: + constant Maximum Pain Intensity: 6 Current Pain Intensity: 6 Quality: + constant Relieved By: + other (oxygen in the ER) Exacerbated By: + movement Associated symptoms: + chest pain, + nausea/vomiting and + shortness of breath; no cough Treatments prior to arrival: none This is a 79 yo female who presents to the ER complaining of shortness of breath. Patient presents with her at bedside. Patient states she was feeling well in her usual state of health until around 11 when she became acutely short of breath. Patient was recently started on dialysis for her chronic kidney disease and goes Sunday, Sunday, and Sunday. Patient denies any sick contacts or exposure to coronavirus. Patient states she has received both of her coronavirus vaccines. Patient denies any coming fevers or chills. Patient states she did have accompanying chest pain which radiated into her left arm and back. Patient states this has improved since application of oxygen. Patient does not have a history of asthma and no prior tobacco abuse. On arrival here patient found to be markedly hypoxic and was placed on a nasal cannula. On the nasal cannula patient was still hypoxic in the 80s so a nonrebreather was applied and patient is now in the mid 90s. Patient does not need oxygen at home. Patient denies any abdominal pain, or change in stools. Patient states when symptoms began she was slightly nauseated in addition however no vomiting. Patient states she was also lightheaded with symptoms, but denies syncope. Patient denies any lower extremity edema. Patient states she does still make a small amount of urine, this is unchanged. Pt seen during a time of high acuity and national emergency pandemic while wearing PPE. Home Medications Medication Instructions Recorded Confirmed Type cholecalciferol (vitamin D3) 50 2,000 units PO QAM 10/16/18 06/30/20 History mcg (2,000 unit) capsule coenzyme Q10 200 mg capsule 200 mg PO QAM cap 10/31/18 06/30/20 History exemestane 25 mg tablet 25 mg PO DAILY@1200 tab 10/31/18 06/30/20 History aspirin [Enteric Coated Aspirin] 81 mg PO HS 01/23/19 06/30/20 History clopidogrel 75 mg tablet 75 mg PO QAM #90 tab 12/29/19 06/30/20 Rx metoprolol succinate 50 mg 50 mg PO HS #90 tab 01/16/20 06/30/20 Rx tablet,extended release 24 hr amlodipine 10 mg PO QAM 02/27/20 06/30/20 History gabapentin 100 mg capsule 100 mg PO HS cap 04/01/20 06/30/20 History rosuvastatin 10 mg tablet 10 mg PO HS #90 tab 04/08/20 06/30/20 Rx lansoprazole 30 mg capsule,delayed 30 mg PO DAILY #30 cap 06/03/20 06/24/20 Rx release ondansetron 4 mg disintegrating 4 mg PO Q6H PRN #90 tab 06/03/20 06/30/20 Rx tablet prednisone 10 mg PO DAILY #20 tab 06/12/20 06/24/20 Rx buspirone 5 mg tablet 5 mg PO DAILY #20 tab 06/17/20 06/24/20 Rx nystatin 100,000 unit/mL oral 500,000 unit BUCCAL QID 10 Days 06/17/20 06/24/20 Rx suspension #200 ml isosorbide mononitrate 30 mg PO DAILY@1200 06/30/20 06/30/20 History tramadol 50 mg PO Q8H PRN 06/30/20 06/30/20 History Allergies Allergy/AdvReac Type Severity Reaction Status Date / Time hydrocodone Allergy Intermediate RASH, HIVES Verified 06/24/20 10:07 Sulfa (Sulfonamide AdvReac Intermediate "SULFA Verified 06/24/20 10:07 Antibiotics) DRUGS": N/V spironolactone AdvReac Mild GI Verified 06/24/20 10:07 SYMPTOMS,NAUSEA AND VOMITING Aldactazide AdvReac Unknown GI Unverified 07/24/17 10:20 SYMPTOMS,NAUSEA AND VOMITING hydrochlorothiazide AdvReac Unknown GI Verified 06/24/20 10:07 SYMPTOMS,NAUSEA AND VOMITING Past Med/Surg History Medical History AAA (abdominal aortic aneurysm) PCP monitoring. "Mild fusiform aneurysmal dilatation of the distal thoracic and abdominal aorta." per 02/27/[address] CAD (coronary artery disease) Severe multivessel coronary artery diseaseoccluded distal right, occluded distal circumflex, 90% focal stenosis in mid circumflex into OM1 - follows with Dr. Pfeiffer Degenerative joint disease, multiple joints on both sides of body Dyslipidemia ESRD (end stage renal disease) on dialysis started dialysis 12/2019 - [facility] - MWF - follows with Dr. Kaur Fibromyalgia GERD (gastroesophageal reflux disease) History of breast cancer Lt lumpectomy/chemo/radiation 2016 History of myocardial infarction silent -- informed in 2018 of evidence of previous [place] History of skin cancer removed History of stent insertion of renal artery Lt History of ulcerative colitis Hypertension Mitral regurgitation Osteoarthritis PAD (peripheral artery disease) Peripheral neuropathy Right renal artery stenosis h/o failed attempt to stent Rt renal artery per pt - atheroemboli to her feet and kidneys Spinal stenosis Surgical History History of anesthesia reaction "easy to put out and hard to wake up" History of breast biopsy History of cardiac catheterization 2017 [place] -abn stress test - no stents History of colectomy No colostomy, anastamosis of small bowel. History of colonoscopy History of esophagogastroduodenoscopy (EGD) History of lumpectomy of left breast History of vascular access device temporary dialysis catheter to Rt chest History of vascular surgery 03/22/[address] DR Pfeiffer [facility] stents to BLLE Family History Mother Colon cancer Cardiac disorder Hypertension Father Colon cancer Cardiac disorder Cancer Family/Other Coronary arteriosclerosis Other No family history of adverse response to anesthesia Social History Smoking Status: Never smoker Second Hand Exposure: No; Hx Alcohol Use: No Hx Substance Use: No Preferred Language: Irish Communication Ability: Effective 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 able to assist with care as needed. Feels Safe at Home: Yes Diet Comment: renal diet during the past year weight has: decreased > 10 lbs Assistive Devices: Oxygen - Continuous Review of Systems See HPI for pertinent positives & negatives. and A total of 10 systems reviewed and were otherwise negative Physical Exam Vital Signs Vital Signs - 24 hr 06/30/20 03:40 06/30/20 03:48 06/30/20 03:58 Temperature 36.6 C Temperature Source Oral Pulse Rate 112 H 116 H Pulse Rate [Finger] Pulse Rate from SpO2 Sensor 117 H Respiratory Rate 18 27 H Respiratory Effort / Characteristics Blood Pressure 113/72 114/78 Blood Pressure Mean 85 90 Pulse Oximetry 82 L 91 99 Pulse Oximetry [Index Finger] Oxygen Delivery Method Room Air Non-rebreather Non-rebreather Oxygen Delivery Method [Index Finger] Oxygen Flow Rate 15 Oxygen Flow Rate [Index Finger] Fraction of Inspired Oxygen Fraction of Inspired Oxygen [Index Finger] Sepsis Recent Fever Within 48 Hours No Sepsis New/Unexplained Change in Mental Status N/A Sepsis Action Taken by Nursing No Action Required 06/30/20 04:30 06/30/20 05:00 06/30/20 05:30 Temperature Temperature Source Pulse Rate 109 H 109 H 110 H Pulse Rate [Finger] Pulse Rate from SpO2 Sensor 109 H 106 H 110 H Respiratory Rate 30 H 28 H 27 H Respiratory Effort / Characteristics Blood Pressure 117/80 100/68 102/68 Blood Pressure Mean 92 78 79 Pulse Oximetry 96 93 88 L Pulse Oximetry [Index Finger] Oxygen Delivery Method Non-rebreather Non-rebreather Free Flow/Blow- by Oxygen Delivery Method [Index Finger] Oxygen Flow Rate Oxygen Flow Rate [Index Finger] Fraction of Inspired Oxygen Fraction of Inspired Oxygen [Index Finger] Sepsis Recent Fever Within 48 Hours Sepsis New/Unexplained Change in Mental Status Sepsis Action Taken by Nursing 06/30/20 05:39 06/30/20 05:41 06/30/20 06:00 Temperature Temperature Source Pulse Rate 106 H Pulse Rate [Finger] 110 H 108 H Pulse Rate from SpO2 Sensor 107 H Respiratory Rate 28 H 28 H 32 H Respiratory Effort / Characteristics Short of Breath Blood Pressure 98/80 L Blood Pressure Mean 86 Pulse Oximetry 90 86 L Pulse Oximetry [Index Finger] 91 Oxygen Delivery Method High Flow Nasal Cannula Free Flow/Blow- by Oxygen Delivery Method [Index Finger] High Flow Nasal Cannula Oxygen Flow Rate 40 Oxygen Flow Rate [Index Finger] 40 Fraction of Inspired Oxygen 100 Fraction of Inspired Oxygen [Index Finger] 100 Sepsis Recent Fever Within 48 Hours Sepsis New/Unexplained Change in Mental Status Sepsis Action Taken by Nursing 06/30/20 06:07 Temperature Temperature Source Pulse Rate Pulse Rate [Finger] Pulse Rate from SpO2 Sensor Respiratory Rate Respiratory Effort / Characteristics Blood Pressure Blood Pressure Mean Pulse Oximetry 84 L Pulse Oximetry [Index Finger] Oxygen Delivery Method High Flow Nasal Cannula Oxygen Delivery Method [Index Finger] Oxygen Flow Rate Oxygen Flow Rate [Index Finger] Fraction of Inspired Oxygen Fraction of Inspired Oxygen [Index Finger] Sepsis Recent Fever Within 48 Hours Sepsis New/Unexplained Change in Mental Status Sepsis Action Taken by Nursing GENERAL: alert, unwell appearing, well nourished, mild distress, nonrebreather in place EYE EXAM: normal conjunctiva, PERRL and EOM's grossly intact OROPHARYNX: no exudate, no erythema, lips, buccal mucosa, and tongue normal and mucous membranes are moist NECK: supple, no nuchal rigidity, no adenopathy, non-tender LUNGS: Decreased to auscultation. Normal chest wall mechanics, no w/r, bibasilar rales, slight tachypnea although patient states this is improving since application of oxygen, no obvious retractions or increased work of breathing HEART: no murmurs, S1 normal and S2 normal, sinus tachycardia on telemetry at 110, dialysis catheter noted in the left anterior superior chest wall ABDOMEN: abdomen soft, non-tender, normo-active bowel sounds, no masses, no rebound or guarding. BACK: Back is symmetrical on inspection and there is no deformity, no midline tenderness, no CVA tenderness. SKIN: no rashes and no bruising UPPER EXTREMITIES: upper extremities are grossly normal. FROM, nml pulses b/l. LOWER EXTREMITIES: No pitting edema. FROM, nml pulses b/l. NEURO EXAM: Normal sensorium, cranial nerves II-XII grossly intact, normal speech, no gross weakness of arms, no gross weakness of legs. Gross sensation intact. Course Course 0502: Pt updated on results. 554: Discussed with Dr. Felix. 0608: Pt's oxygen sats dropping again, patient denies increased SOB. Will transition to BiPAP from HFNC. 06: Pt now improving on BIPAP. Sats 93%. 0715: Awaiting transfer to dialysis. Sats 90% on BIPAP. Administered Medications Acetaminophen (Acetaminophen 325 Mg Tab) 650 mg PO Q4H PRN PRN Reason: Pain or Fever Stop: 07/30/20 07:34 Last Admin: 06/30/20 20:17 Dose: 650 mg Documented by: [id number] Admin: 06/30/20 13:57 Dose: 650 mg Documented by: [id number] Aspirin (Aspirin 81 Mg Ectab) 81 mg PO [facility] Stop: 07/30/20 20:59 Last Admin: 06/30/20 20:16 Dose: 81 mg Documented by: [id number] Clopidogrel Bisulfate (Clopidogrel Bisulfate 75 Mg Tab) [facility] Stop: 07/30/20 08:59 Last Admin: 07/01/20 08:18 Dose: 75 mg Documented by: [id number] Admin: 06/30/20 14:18 Dose: 75 mg Documented by: [id number] Gabapentin (Gabapentin 100 Mg Cap) 100 mg PO [facility] Stop: 07/30/20 20:59 Last Admin: 06/30/20 20:15 Dose: 100 mg Documented by: [id number] Heparin Sodium (Porcine) (Heparin Sod 5,000 Unit/0.5 Ml Vial) 5,000 units SQ Q8 [facility] Stop: 07/30/20 13:59 Last Admin: 07/01/20 05:44 Dose: 5,000 units Documented by: [id number] Admin: 06/30/20 20:18 Dose: 5,000 units Documented by: [id number] Admin: 06/30/20 14:19 Dose: 5,000 units Documented by: [id number] Metoprolol Succinate (Metoprolol Succ 50mg Ext Rel Tab) 50 mg PO [facility] Stop: 07/30/20 20:59 Last Admin: 06/30/20 20:18 Dose: 50 mg Documented by: [id number] Rosuvastatin Calcium (Rosuvastatin Calcium 10 Mg Tab) 10 mg PO [facility] Stop: 07/30/20 20:59 Last Admin: 06/30/20 20:16 Dose: 10 mg Documented by: [id number] Discontinued Medications Furosemide (Furosemide 40 Mg/4 Ml Vial) 60 mg IV ONE STA Stop: 06/30/20 06:25 Last Admin: 06/30/20 06:31 Dose: 60 mg Documented by: [id number] Ioversol (Optiray 320 125ml) 118 ml IV ONCE ONE Stop: 06/30/20 14:44 Last Admin: 06/30/20 14:44 Dose: 118 ml Documented by: [id number] Ondansetron HCl (Ondansetron Inj 2 Mg/Ml 2 Ml Vial) 4 mg IV NOW STA Stop: 06/30/20 04:42 Last Admin: 06/30/20 04:45 Dose: 4 mg Documented by: [id number] Critical Care Time Critical Care Time: Yes Total Critical Care Time: 47 Critical care of 47 min performed to assess and manage high likelihood of life- threatening dyspnea and hypoxia, involving labs and imaging performed with assessment to evaluate dyspnea and hypoxia diagnosis with frequent reassessment. This time includes bedside time, treatment discussions with patient/family /consultants, documentation time and excludes procedure time. Medical Decision Making Differential Diagnosis Differential diagnoses includes but is not limited to pneumonia, bronchitis, COPD/Asthma exacerbation, pneumothorax, pulmonary embolism, congestive heart failure, acute coronary syndrome Medical Records Attestation: I reviewed the patient's medical records. Home Medications Current Medication List: was personally reviewed by me Laboratory Data Attestation: I reviewed the patient's lab results. Result diagrams: 07/01/20 06:13 07/01/20 06:13 Lab Results 06/30/20 06/30/20 06/30/20 Range/Units 04:27 04:27 04:27 WBC 9.80 (4.8-10.8) K/uL RBC 3.01 L (4.2-5.4) M/uL Hgb 9.8 L (12.0-16.0) g/dL Hct 30.5 L (37-47) % MCV 101.3 H (80-100) fL MCH 32.6 (25-34) pg MCHC 32.1 (32-36) g/dL RDW Std Deviation 60.8 H (36.4-46.3) fL RDW Coeff of Max 16.3 H (11.5-14.5) % Plt Count 183 (130-400) K/uL MPV 9.7 (7.4-10.4) fL Immature Gran % (Auto) 0.2 % Neut % (Auto) 78.1 % Lymph % (Auto) 14.3 % Burnett % (Auto) 5.8 % Eos % (Auto) 1.3 % Baso % (Auto) 0.3 % Neut # (Auto) 7.65 H (1.4-6.5) K/uL Lymph # (Auto) 1.40 (1.2-3.4) K/uL Burnett # (Auto) 0.57 (0.11-0.59) K/uL Eos # (Auto) 0.13 (0-0.5) K/uL Baso # (Auto) 0.03 (0-0.2) K/uL Immature Gran # (Auto) 0.02 (0.00-0.02) K/uL PT 11.2 (9.0-12.0) Seconds INR 1.1 (0.9-1.1) Sodium 135 L (136-145) mmol/L Potassium 4.8 (3.5-5.1) mmol/L Chloride 101 (98-107) mmol/L Carbon Dioxide 27 (21-32) mmol/L Anion Gap 7.0 (3-11) BUN 35 H (7-18) mg/dl Creatinine 7.23 H* (0.6-1.2) mg/dl Est Cr Clr Drug Dosing 4.4 ml/min Est GFR ( Amer) 5.6 Est GFR (Non-Af Amer) 4.8 BUN/Creatinine Ratio 4.9 L (10-20) Glucose 96 (70-99) mg/dl Calcium 8.9 (8.5-10.1) mg/dl Magnesium 1.8 (1.8-2.4) mg/dl Total Bilirubin 0.4 (0.2-1) mg/dl AST 20 (15-37) U/L ALT 15 (12-78) U/L Alkaline Phosphatase 71 (45-117) U/L Troponin I 0.579 H* (0-0.045) ng/ml NT-Pro-B Natriuret Pep [id number] H (0-1800) pg/ml Total Protein 7.7 (6.4-8.2) gm/dl Albumin 3.1 L (3.4-5.0) gm/dl Globulin 4.6 H (2.5-4.0) gm/dl Albumin/Globulin Ratio 0.7 L (0.9-2) COVID-19 Eval Order SARS-CoV-2 (PCR) (Negative) Influenza Type A (PCR) (Neg) Influenza Type B (PCR) (Neg) RSV (RT-PCR) (Neg) 06/30/20 06/30/20 Range/Units 04:48 04:48 WBC (4.8-10.8) K/uL RBC (4.2-5.4) M/uL Hgb (12.0-16.0) g/dL Hct (37-47) % MCV (80-100) fL MCH (25-34) pg MCHC (32-36) g/dL RDW Std Deviation (36.4-46.3) fL RDW Coeff of Max (11.5-14.5) % Plt Count (130-400) K/uL MPV (7.4-10.4) fL Immature Gran % (Auto) % Neut % (Auto) % Lymph % (Auto) % Burnett % (Auto) % Eos % (Auto) % Baso % (Auto) % Neut # (Auto) (1.4-6.5) K/uL Lymph # (Auto) (1.2-3.4) K/uL Burnett # (Auto) (0.11-0.59) K/uL Eos # (Auto) (0-0.5) K/uL Baso # (Auto) (0-0.2) K/uL Immature Gran # (Auto) (0.00-0.02) K/uL PT (9.0-12.0) Seconds INR (0.9-1.1) Sodium (136-145) mmol/L Potassium (3.5-5.1) mmol/L Chloride (98-107) mmol/L Carbon Dioxide (21-32) mmol/L Anion Gap (3-11) BUN (7-18) mg/dl Creatinine (0.6-1.2) mg/dl Est Cr Clr Drug Dosing ml/min Est GFR ( Amer) Est GFR (Non-Af Amer) BUN/Creatinine Ratio (10-20) Glucose (70-99) mg/dl Calcium (8.5-10.1) mg/dl Magnesium (1.8-2.4) mg/dl Total Bilirubin (0.2-1) mg/dl AST (15-37) U/L ALT (12-78) U/L Alkaline Phosphatase (45-117) U/L Troponin I (0-0.045) ng/ml NT-Pro-B Natriuret Pep (0-1800) pg/ml Total Protein (6.4-8.2) gm/dl Albumin (3.4-5.0) gm/dl Globulin (2.5-4.0) gm/dl Albumin/Globulin Ratio (0.9-2) COVID-19 Eval Order CovFluRsv at [facility] SARS-CoV-2 (PCR) NEGATIVE (Negative) Influenza Type A (PCR) Negative (Neg) Influenza Type B (PCR) Negative (Neg) RSV (RT-PCR) Negative (Neg) Imaging Data My Impression: X-ray: I interpreted the following studies. Chest: A single view study of the chest was reviewed and was negative for cardiomegaly, focal infiltrate, or wide mediastinum. Bilateral patchy infiltrates noted with small bilateral pleural effusions consistent with likely pulmonary edema. Dialysis catheter noted in good position. Radiologist's Impression: Chest X-Ray 06/30/20 04:13 XR chest 1V portable CLINICAL HISTORY: Shortness of breath COMPARISON STUDY: 06/09/2020 FINDINGS: The heart is the upper limits of normal in size. There is aortic tortuosity/ectasia. There is persistent soft tissue prominence in the region of the left main pulmonary artery and AP window. There are bilateral pulmonary airspace opacities likely representing pulmonary edema although a bilateral infectious/inflammatory processes could appear similar. There are small bilateral pleural effusions.[There is a dual-lumen right-sided central venous catheter unchanged in position. IMPRESSION: 1. Bilateral interstitial opacities, likely representing pulmonary edema although a bilateral interstitial infectious/inflammatory process could appear similar 2. Small bilateral pleural effusions 3. Persistent aortic tortuosity/ectasia 4. Persistent soft tissue fullness in the region of the left pulmonary artery/AP window. Likely diagnostic considerations include aortic aneurysm versus adenopathy. ACT 112: Negative or not required by law. Electronically signed by: Vernon Shaikh M.D. 06/30/2020 6:57 AM ECG Data Attestation: I personally reviewed and interpreted this ECG as follows: Indication: + SOB/dyspnea Rate (beats per minute): 115 Rhythm: + sinus tachycardia ECG Intervals/blocks: + Normal QRS and + Normal QT ECG [place]: + Normal ECG ST segments: + T-wave inversions (III, aVF) MDM Narrative This is an ill-appearing 79-year-old female who presents emergency room short of breath with hypoxia, tachypnea, and concern for acute pulmonary edema. Patient just recently started on dialysis for chronic kidney disease several months ago. Patient would be due for dialysis today. Patient otherwise afebrile. Denies accompanying chest pain. Patient does have underlying CAD and was recently cathed however no interventions performed. I do not suspect bacteremia/sepsis. Patient denies any dietary indiscretion. Patient with i mproved oxygenation on nasal cannula however still had tachypnea, tachycardia, and increased work of breathing so she was changed to high flow nasal cannula. In the interim labs were checked, chest x-ray performed, consistent with pulmonary edema. No evidence of acute hyperkalemia. Creatinine elevated although consistent with patient's need for dialysis today as scheduled. Case discussed with hospitalist due to increased work of breathing and hypoxia. Patient with no other prior pulmonary history and does not wear oxygen at home. While awaiting bed placement, patient began to fail only high flow nasal cannula and was transitioned to BiPAP. She was improved on this with decreased work of breathing, decreased heart rate, and appeared much more comfortable. There was some difficulty getting patient to dialysis quickly as patient initially was not assigned to bed but was in ED hold due to limited staffing. Additional arrangements were weighed and a nurse accompanied her to dialysis as did RT. An order was placed for continuous cardiac monitoring. The monitor shows a rate of _98_ with _normal sinus rhythm. Impression & Plan Shortness of breath, Hypoxia, CKD (chronic kidney disease) stage V requiring chronic dialysis, Anemia Discharge Plan Visit Data Chief Complaint: Respiratory Problems Stated Complaint: CAN'T CATCH BREATH,CHEST PAIN ED Provider: Lola Tao Discharge Problem: Shortness of breath, Hypoxia, CKD (chronic kidney disease) stage V requiring chronic dialysis, Anemia Patient Disposition: Admitted As Inpatient Discharge Instructions Interventions: ED Discharge Assessment Last Done: 06/30/20 11:02 Discharge Problem: Anemia Qualifiers: Anemia type: unspecified type Qualified Code(s): D64.9 - Anemia, unspecified
[2020-06-30 04:36] LABS: Basophils # (auto) 0.03 K/uL (0-0.2); Basophils % (auto) 0.3 %; Eosinophils # (auto) 0.13 K/uL (0-0.5); Eosinophils % (auto) 1.3 %; Hematocrit (blood only) 30.5 % (37-47); Hemoglobin 9.8 g/dL (12.0-16.0); Immature Granulocytes # (auto) 0.02 K/uL (0.00-0.02); Immature Granulocytes % (auto) 0.2 %; Lymphocytes % (auto) 14.3 %; Mean Corpuscular Hemoglobin 32.6 pg (25-34); Mean Corpuscular Hgb Conc 32.1 g/dL (32-36); Mean Corpuscular Volume 101.3 fL (80-100); Mean Platelet Volume 9.7 fL (7.4-10.4); Monocytes # (auto) 0.57 K/uL (0.11-0.59); Monocytes % (auto) 5.8 %; Neutrophils # (auto) 7.65 K/uL (1.4-6.5); Neutrophils % (auto) 78.1 %; Platelet Count 183 K/uL (130-400); RDW Coefficient of Variation 16.3 % (11.5-14.5); RDW Standard Deviation 60.8 fL (36.4-46.3); Red Blood Count 3.01 M/uL (4.2-5.4)
[2020-06-30] MEDS ORDERED: ONDANSETRON INJ 2 MG/ML 2 ML VIAL IV STA (04:41)
[2020-06-30 04:45] LABS: INR 1.1 (0.9-1.1); Prothrombin Time 11.2 Seconds (9.0-12.0)
[2020-06-30 05:07] LABS: Albumin Globulin Ratio 0.7 (0.9-2); Albumin Level 3.1 gm/dl (3.4-5.0); BUN Creatinine Ratio 4.9 (10-20); Bilirubin,Total 0.4 mg/dl (0.2-1); Calcium 8.9 mg/dl (8.5-10.1); Creatinine Clr Calc Pharmacy 4.4 ml/min; Est GFR (African American) 5.6; Est GFR (Non-African American) 4.8; Globulin 4.6 gm/dl (2.5-4.0); Magnesium 1.8 mg/dl (1.8-2.4); Potassium 4.8 mmol/L (3.5-5.1); Total Protein 7.7 gm/dl (6.4-8.2); Troponin I 0.579 ng/ml (0-0.045)
[2020-06-30 05:40] LABS: Influenza A virus by PCR Negative (Neg); Influenza B virus by PCR Negative (Neg); RSV by PCR Negative (Neg); SARS CoV2 RNA(COVID-19) InHosp NEGATIVE (Negative)
[2020-06-30] MEDS ORDERED: FUROSEMIDE 60 MG in SYRINGE 0 ML IV STA (06:21)
[2020-06-30] MEDS ORDERED: FUROSEMIDE 40 MG/4 ML VIAL IV STA (06:24)
--- NOTE | 2020-06-30 06:33 | History & Physical Report ---
Date of Service June 30, 2020 Assessment & Plan (1) Acute respiratory failure with hypoxia: 79yo female with ESRD on HD q M/W/F presenting with acute hypoxic respiratory failure possibly secondary to pulmonary edema. Patient presently on BiPAP 12//100% saturating 93%. CXR suggestive of pulmonary edema. Patient presented similarly last month. ?Need for more aggressive HD ?role that mitral valve and regurgitation may have on her pulmonary edema - may need to explore option of repair after acute issues resolve. -Admit to PCU -Continue BiPAP support -Discussed with Nephrology need for urgent HD - they will see her later this morning -Check ddimer -Check procalcitonin Present on Admission?: Yes (2) Troponin level elevated: In setting of ESRD, known CAD. Patient had cardiac catheterization perfor med last hospital stay which revealed stable severe CAD, unchanged from prior -Telemetry monitoring -Trend troponin -Continue ASA, Plavix, Statin and Metoprolol as BP allows Present on Admission?: Yes (3) CAD (coronary artery disease): Patient with known CAD - last catheterization on 06/10/20. Chest pressure presently in setting of acute hypoxic respiratory failure -Continue ASA, Plavix, Crestor and Metoprolol as BP allows Present on Admission?: Yes (4) GERD (gastroesophageal reflux disease): Chronic -Continue Protonix Present on Admission?: Yes (5) End stage renal disease: Patient on HD q M/W/F -Nephrology consultation appreciated -Patient will most likely require urgent HD later this AM for fluid management Present on Admission?: Yes (6) Dyslipidemia: Chronic -Continue Crestor Present on Admission?: Yes (7) Hypertension: Blood pressure borderline low -Hold antihypertensive agents at this time -Continue to monitor F/E/N - HD for fluid removal. Electrolytes otherwise acceptable. NPO for now given BiPAP and tenuous respiratory status Ppx - Heparin Code - DNR/DNI confirmed with patient at bedside. present Dispo -Admit to PCU Present on Admission?: Yes History of Present Illness Chief Complaint: SOB Primary Care Provider: Johnny Rai MD Adriana Arnett is an 79yo C female with history of ESRD on HD q M/W/F (since December 2019), AAA, CAD, HLP presenting with acute hypoxic respiratory failure. Patient last received HD on 06/28/20 and has not missed any treatments. She still makes a small amount of urine. She developed acute onset SOB as well as chest tightness last night around 23:00 which prompted her to come to the ER. She has not had fever, chills, sweats. She has had no sick contacts. She has received both vaccines for Covid-19 ([employer]) Patient presented similarly to [facility] on 06/09/20 with acute hypoxic respiratory failure with initial saturations 80% on room air as well as mid scapular pain and a mildly elevated troponin. She had an echocardiogram performed on 06/09/20 which revealed normal LV size and function with EF of 55-60 as well as hypokinesis of the inferolateral wall. She had a sclerotic aortic valve and a tethered posterior mitral leaflet with probable moderate to severe MR and mild PH. Her symptoms were somewhat concerning for ACS - she had a cardiac catheterization performed on 06/10/20 which revealed severe chronic multivessel CAD with 95% mid-cx, 100% distal Cx and 100% distal RCA chronic occlusions with collaterals - anatomy largely unchanged from 2018. Patient hypoxic on arrival - 82% on room air. She was placed on NC then HFNC with minimal improvement. Presently on BiPAP 03/02 100% FiO2 saturating 94% ER Course: Zofran 4mg IV, Lasix 60mg IV Allergies Allergy/AdvReac Type Severity Reaction Status Date / Time hydrocodone Allergy Intermediate RASH, HIVES Verified 06/24/20 10:07 Sulfa (Sulfonamide AdvReac Intermediate "SULFA Verified 06/24/20 10:07 Antibiotics) DRUGS": N/V spironolactone AdvReac Mild GI Verified 06/24/20 10:07 SYMPTOMS,NAUSEA AND VOMITING Aldactazide AdvReac Unknown GI Unverified 07/24/17 10:20 SYMPTOMS,NAUSEA AND VOMITING hydrochlorothiazide AdvReac Unknown GI Verified 06/24/20 10:07 SYMPTOMS,NAUSEA AND VOMITING Home Medications Medication Instructions Recorded Confirmed Type cholecalciferol (vitamin D3) 50 2,000 units PO QAM 10/16/18 06/17/20 History mcg (2,000 unit) capsule coenzyme Q10 200 mg capsule 200 mg PO QAM cap 10/31/18 06/17/20 History exemestane 25 mg tablet 25 mg PO DAILY@1200 tab 10/31/18 06/17/20 History aspirin [Enteric Coated Aspirin] 81 mg PO HS 01/23/19 06/17/20 History clopidogrel 75 mg tablet 75 mg PO QAM #90 tab 12/29/19 06/17/20 Rx metoprolol succinate 50 mg 50 mg PO HS #90 tab 01/16/20 06/17/20 Rx tablet,extended release 24 hr amlodipine 10 mg PO QAM 02/27/20 06/17/20 History gabapentin 100 mg capsule 200 mg PO HS cap 04/01/20 06/17/20 History rosuvastatin 10 mg tablet 10 mg PO HS #90 tab 04/08/20 06/17/20 Rx lansoprazole 30 mg capsule,delayed 30 mg PO DAILY #30 cap 06/03/20 06/24/20 Rx release ondansetron 4 mg disintegrating 4 mg PO Q6H PRN #90 tab 06/03/20 06/24/20 Rx tablet tramadol 50 mg tablet 50 mg PO Q12 PRN #60 tab 06/04/20 06/24/20 Rx isosorbide mononitrate 60 mg PO DAILY@1200 #30 tab 06/12/20 06/24/20 Rx prednisone 10 mg PO DAILY #20 tab 06/12/20 06/24/20 Rx buspirone 5 mg tablet 5 mg PO DAILY #20 tab 06/17/20 06/24/20 Rx nystatin 100,000 unit/mL oral 500,000 unit BUCCAL QID 10 Days 06/17/20 06/24/20 Rx suspension #200 ml Past Med/Surg History Medical History AAA (abdominal aortic aneurysm) PCP monitoring. "Mild fusiform aneurysmal dilatation of the distal thoracic and abdominal aorta." per 02/27/[address] CAD (coronary artery disease) Severe multivessel coronary artery diseaseoccluded distal right, occluded distal circumflex, 90% focal stenosis in mid circumflex into OM1 - follows with Dr. Pfeiffer Degenerative joint disease, multiple joints on both sides of body Dyslipidemia ESRD (end stage renal disease) on dialysis started dialysis 12/2019 - [facility] - follows with Dr. Kaur Fibromyalgia GERD (gastroesophageal reflux disease) History of breast cancer Lt lumpectomy/chemo/radiation 2016 History of myocardial infarction silent -- informed in 2018 of evidence of previous ME History of skin cancer removed History of stent insertion of renal artery Lt History of ulcerative colitis Hypertension Mitral regurgitation Osteoarthritis PAD (peripheral artery disease) Peripheral neuropathy Right renal artery stenosis h/o failed attempt to stent Rt renal artery per pt - atheroemboli to her feet and kidneys Spinal stenosis Surgical History History of anesthesia reaction "easy to put out and hard to wake up" History of breast biopsy History of cardiac catheterization 2017 [place] -abn stress test - no stents History of colectomy No colostomy, anastamosis of small bowel. History of colonoscopy History of esophagogastroduodenoscopy (EGD) History of lumpectomy of left breast History of vascular access device temporary dialysis catheter to Rt chest History of vascular surgery 03/22/2020 DR Pfeiffer [facility] stents to BLLE Family History Mother Colon cancer Cardiac disorder Hypertension Father Colon cancer Cardiac disorder Cancer Family/Other Coronary arteriosclerosis Other No family history of adverse response to anesthesia Social History Smoking Status: Never smoker Second Hand Exposure: Yes (hx); Hx Alcohol Use: No Hx Substance Use: No Preferred Language: Romansh Communication Ability: Effective Microfilm Processor Required: No Beliefs That Will Affect Care: None marital status: Current Living Situation: Spouse current occupational status: retired How many Children do You have: 1 How many Children do You have Comment: not local. able to assist with care as needed. Feels Safe at Home: Yes Diet Comment: renal diet during the past year weight has: decreased > 10 lbs Assistive Devices: None Review of Systems Review of Systems: All systems reviewed & are unremarkable except as noted in HPI & below +Chest tightness +SOB Physical Exam Physical Exam: General: patient visibly tachypneic, using accessory muscles to breathe, awake and alert, oriented x 4 Skin: warm, dry, intact, no rashes or lesions HEENT: NC/AT, PERRL, EOMI, anicteric sclera, conjunctiva without injection, external ear normal to inspection and nontender, nares patent, moist mucus membranes, dentition intact, no oropharyngeal lesions, neck supple, trachea midline, no LAD, no thyromegaly, +JVD noted left neck with bed upright Heart: +S1/S2, regular, tachycardic, no m/r/g, Perm cath right chest wall - nontender Lungs: diminished breath sounds bilaterally with crackles to mid lung torres, no wheeze Abd: +BS, soft, NT/ND, no masses/organomegaly/ascites Ext: warm, 2+ pulses in UE/LE bilaterally, no clubbing/cyanosis or edema, LUE AV fistula Neuro: nonfocal, patient AA&O x 4, speech intact, no facial droop, moving all extremities on command with equal strength 5/5 Results & Data Results & Data ([facility]) Vital Signs (Past 12 Hours) Vital Signs Temp Pulse Pulse Resp BP Pulse Ox Pulse Ox 06/30/20 06:19 101 H 28 H 94 06/30/20 06:07 84 L 06/30/20 06:00 106 H 32 H 98/80 L 86 L 06/30/20 05:41 108 H 28 H 90 06/30/20 05:39 110 H 28 H 91 06/30/20 05:30 110 H 27 H 102/68 88 L 06/30/20 05:00 109 H 28 H 100/68 93 06/30/20 04:30 109 H 30 H 117/80 96 06/30/20 03:58 99 06/30/20 03:48 116 H 27 H 114/78 91 06/30/20 03:40 36.6 C 112 H 18 113/72 82 L Laboratory Results Lab Results 06/30/20 06/30/20 06/30/20 Range/Units 04:27 04:27 04:27 WBC 9.80 (4.8-10.8) K/uL RBC 3.01 L (4.2-5.4) M/uL Hgb 9.8 L (12.0-16.0) g/dL Hct 30.5 L (37-47) % MCV 101.3 H (80-100) fL MCH 32.6 (25-34) pg MCHC 32.1 (32-36) g/dL RDW Std Deviation 60.8 H (36.4-46.3) fL RDW Coeff of Max 16.3 H (11.5-14.5) % Plt Count 183 (130-400) K/uL MPV 9.7 (7.4-10.4) fL Immature Gran % (Auto) 0.2 % Neut % (Auto) 78.1 % Lymph % (Auto) 14.3 % Barber % (Auto) 5.8 % Eos % (Auto) 1.3 % Baso % (Auto) 0.3 % Neut # (Auto) 7.65 H (1.4-6.5) K/uL Lymph # (Auto) 1.40 (1.2-3.4) K/uL Barber # (Auto) 0.57 (0.11-0.59) K/uL Eos # (Auto) 0.13 (0-0.5) K/uL Baso # (Auto) 0.03 (0-0.2) K/uL Immature Gran # (Auto) 0.02 (0.00-0.02) K/uL PT 11.2 (9.0-12.0) Seconds INR 1.1 (0.9-1.1) Sodium 135 L (136-145) mmol/L Potassium 4.8 (3.5-5.1) mmol/L Chloride 101 (98-107) mmol/L Carbon Dioxide 27 (21-32) mmol/L Anion Gap 7.0 (3-11) BUN 35 H (7-18) mg/dl Creatinine 7.23 H* (0.6-1.2) mg/dl Est Cr Clr Drug Dosing 4.4 ml/min Est GFR ( Amer) 5.6 Est GFR (Non-Af Amer) 4.8 BUN/Creatinine Ratio 4.9 L (10-20) Glucose 96 (70-99) mg/dl Calcium 8.9 (8.5-10.1) mg/dl Magnesium 1.8 (1.8-2.4) mg/dl Total Bilirubin 0.4 (0.2-1) mg/dl AST 20 (15-37) U/L ALT 15 (12-78) U/L Alkaline Phosphatase 71 (45-117) U/L Troponin I 0.579 H* (0-0.045) ng/ml NT-Pro-B Natriuret Pep 43255 H (0-1800) pg/ml Total Protein 7.7 (6.4-8.2) gm/dl Albumin 3.1 L (3.4-5.0) gm/dl Globulin 4.6 H (2.5-4.0) gm/dl Albumin/Globulin Ratio 0.7 L (0.9-2) COVID-19 Eval Order SARS-CoV-2 (PCR) (Negative) Influenza Type A (PCR) (Neg) Influenza Type B (PCR) (Neg) RSV (RT-PCR) (Neg) 06/30/20 06/30/20 Range/Units 04:48 04:48 WBC (4.8-10.8) K/uL RBC (4.2-5.4) M/uL Hgb (12.0-16.0) g/dL Hct (37-47) % MCV (80-100) fL MCH (25-34) pg MCHC (32-36) g/dL RDW Std Deviation (36.4-46.3) fL RDW Coeff of Max (11.5-14.5) % Plt Count (130-400) K/uL MPV (7.4-10.4) fL Immature Gran % (Auto) % Neut % (Auto) % Lymph % (Auto) % Barber % (Auto) % Eos % (Auto) % Baso % (Auto) % Neut # (Auto) (1.4-6.5) K/uL Lymph # (Auto) (1.2-3.4) K/uL Barber # (Auto) (0.11-0.59) K/uL Eos # (Auto) (0-0.5) K/uL Baso # (Auto) (0-0.2) K/uL Immature Gran # (Auto) (0.00-0.02) K/uL PT (9.0-12.0) Seconds INR (0.9-1.1) Sodium (136-145) mmol/L Potassium (3.5-5.1) mmol/L Chloride (98-107) mmol/L Carbon Dioxide (21-32) mmol/L Anion Gap (3-11) BUN (7-18) mg/dl Creatinine (0.6-1.2) mg/dl Est Cr Clr Drug Dosing ml/min Est GFR ( Amer) Est GFR (Non-Af Amer) BUN/Creatinine Ratio (10-20) Glucose (70-99) mg/dl Calcium (8.5-10.1) mg/dl Magnesium (1.8-2.4) mg/dl Total Bilirubin (0.2-1) mg/dl AST (15-37) U/L ALT (12-78) U/L Alkaline Phosphatase (45-117) U/L Troponin I (0-0.045) ng/ml NT-Pro-B Natriuret Pep (0-1800) pg/ml Total Protein (6.4-8.2) gm/dl Albumin (3.4-5.0) gm/dl Globulin (2.5-4.0) gm/dl Albumin/Globulin Ratio (0.9-2) COVID-19 Eval Order CovFluRsv at [facility] SARS-CoV-2 (PCR) NEGATIVE (Negative) Influenza Type A (PCR) Negative (Neg) Influenza Type B (PCR) Negative (Neg) RSV (RT-PCR) Negative (Neg) Diagnostic Findings R chest 1V portable CLINICAL HISTORY: Shortness of breath COMPARISON STUDY: 06/09/2020 FINDINGS: The heart is the upper limits of normal in size. There is aortic tortuosity/ectasia. There is persistent soft tissue prominence in the region of the left main pulmonary artery and AP window. There are bilateral pulmonary airspace opacities likely representing pulmonary edema although a bilateral infectious/inflammatory processes could appear similar. There are small bilateral pleural effusions.[There is a dual-lumen right-sided central venous catheter unchanged in position. IMPRESSION: 1. Bilateral interstitial opacities, likely representing pulmonary edema although a bilateral interstitial infectious/inflammatory process could appear similar 2. Small bilateral pleural effusions 3. Persistent aortic tortuosity/ectasia 4. Persistent soft tissue fullness in the region of the left pulmonary artery/AP window. Likely diagnostic considerations include aortic aneurysm versus adenopathy. ACT 112: Negative or not required by law. Electronically signed by: Vernon Shaikh M.D. 06/30/2020 6:57 AM Dictated: 06/30/20 0654Transcribed: 06/30/20 0654 PG Care Time/CCT Total # of Minutes Spent Total Time Spent with Patient: Total time spent is greater than 50% in coordination of care (as documented) at patient's floor/unit and/or counseling patient: Coding Level of Care Code 42388 Initial Inpt Care Lvl 3 Diagnoses Acute respiratory failure with hypoxia J96.01 Troponin level elevated R77.8 CAD (coronary artery disease) I25.10 Coronary Disease-Associated Artery/Lesion type: [place] artery [place] vs. transplanted heart: [place] heart Associated angina: without angina GERD (gastroesophageal reflux disease) K21.9 Esophagitis presence: esophagitis presence not specified End stage renal disease N18.6 Dyslipidemia E78.5 Hypertension I15.0 Hypertension type: renovascular hypertension (1) CAD (coronary artery disease) Coronary Disease-Associated Artery/Lesion type: [place] artery [place] vs. transplanted heart: [place] heart Associated angina: without angina Qualified Code(s): I25.10 - Atherosclerotic heart disease of [place] coronary artery without angina pectoris (2) GERD (gastroesophageal reflux disease) Esophagitis presence: esophagitis presence not specified Qualified Code(s): K21.9 - Gastro-esophageal reflux disease without esophagitis (3) Hypertension Hypertension type: renovascular hypertension Qualified Code(s): I15.0 - Renovascular hypertension
--- NOTE | 2020-06-30 06:58 | XRay Report ---
XR chest 1V portable CLINICAL HISTORY: Shortness of breath COMPARISON STUDY: 06/09/2020 FINDINGS: The heart is the upper limits of normal in size. There is aortic tortuosity/ectasia. There is persistent soft tissue prominence in the region of the left main pulmonary artery and AP window. T here are bilateral pulmonary airspace opacities likely representing pulmonary edema although a bilate ral infectious/inflammatory processes could appear similar. There are small bilateral pleural effusio ns.[There is a dual-lumen right-sided central venous catheter unchanged in position. IMPRESSION: 1. Bilateral interstitial opacities, likely representing pulmonary edema although a bilateral interst itial infectious/inflammatory process could appear similar 2. Small bilateral pleural effusions 3. Persistent aortic tortuosity/ectasia 4. Persistent soft tissue fullness in the region of the left pulmonary artery/AP window. Likely diagn ostic considerations include aortic aneurysm versus adenopathy. ACT 112: Negative or not required by law. Electronically signed by: Vernon Shaikh M.D. 06/30/2020 6:57 AM
[2020-06-30] MEDS ORDERED: DOCUSATE SODIUM 100 MG CAP PO PRN (07:35)
[2020-06-30] MEDS ORDERED: ONDANSETRON INJ 2 MG/ML 2 ML VIAL IV PRN (07:35)
[2020-06-30 08:11] LABS: Base Excess ABG 1.2 mEq/L (-9-1.8); HCO3 ABG 26 mmol/L (19-24); Oxygen Saturation ABG 92.6 % (90-95); PCO2 ABG 39 mmHg (35-46); PO2 ABG 65 mmHg (80-95); pH ABG 7.43 (7.35-7.45)
[2020-06-30] MEDS ORDERED: SODIUM CHLORIDE 0.9% 1000ML 1,000 ML IV PRN (08:21)
--- NOTE | 2020-06-30 08:28 | Nephrology Consultation ---
Date of Consultation June 30, 2020 Assessment & Plan (1) Hypoxia: * Clinical CHF. No fever or sputum production to suggest acute infection. COVID test was negative * Elevated d dimer. Possibly related to ESRD. May require CTA to assess for PE * Monitor O2 sat, CXR following HD today (2) ESRD (end stage renal disease) on dialysis: * Will provide HD this am. Orders placed in EMR and HD RN notified. Will attempt 3 L UF * Will use IJ THC as vascular access. staff mechanical engineer had difficulty w/ AVG as outpatient (3) Ischemic ulcer of toes on both feet: * Atheroembolic injury History of Present Illness Reason for Consultation: CHF, ESRD Attending Physician: Flores Flores MD History of Present Illness Mrs. Arnett is an 79 year old white female who is seen at the request of Dr. Flores for evaluation of CHF, ESRD. Medical history in the EMR was reviewed today and is summarized as follows: Mrs. Arnett has ESRD due to renal vascular disease. She started HD 01/12 and now dialyzes MWF at [facility]. Her EDW is 110 lbs. Mrs. Arnett reports difficulty accessing her R upper arm AVG at HD. However she did complete her full treatment and attained her EDW. Last evening Mrs. Arnett developed progressive dyspnea. She presented to the ED this morning where she was found to be hypoxemic and required BiPAP therapy. CXR was c/w CHF. BNP 32,658, troponin stable at 0.6, ddimer 12,110. Nephrology consultation was requested to provide urgent HD this am Allergies Allergy/AdvReac Type Severity Reaction Status Date / Time hydrocodone Allergy Intermediate RASH, HIVES Verified 06/24/20 10:07 Sulfa (Sulfonamide AdvReac Intermediate "SULFA Verified 06/24/20 10:07 Antibiotics) DRUGS": N/V spironolactone AdvReac Mild GI Verified 06/24/20 10:07 SYMPTOMS,NAUSEA AND VOMITING Aldactazide AdvReac Unknown GI Unverified 07/24/17 10:20 SYMPTOMS,NAUSEA AND VOMITING hydrochlorothiazide AdvReac Unknown GI Verified 06/24/20 10:07 SYMPTOMS,NAUSEA AND VOMITING Home Medications Medication Instructions Recorded Confirmed Type cholecalciferol (vitamin D3) 50 2,000 units PO QAM 10/16/18 06/30/20 History mcg (2,000 unit) capsule coenzyme Q10 200 mg capsule 200 mg PO QAM cap 10/31/18 06/30/20 History exemestane 25 mg tablet 25 mg PO DAILY@1200 tab 10/31/18 06/30/20 History aspirin [Enteric Coated Aspirin] 81 mg PO HS 01/23/19 06/30/20 History clopidogrel 75 mg tablet 75 mg PO QAM #90 tab 12/29/19 06/30/20 Rx metoprolol succinate 50 mg 50 mg PO HS #90 tab 01/16/20 06/30/20 Rx tablet,extended release 24 hr amlodipine 10 mg PO QAM 02/27/20 06/30/20 History gabapentin 100 mg capsule 100 mg PO HS cap 04/01/20 06/30/20 History rosuvastatin 10 mg tablet 10 mg PO HS #90 tab 04/08/20 06/30/20 Rx lansoprazole 30 mg capsule,delayed 30 mg PO DAILY #30 cap 06/03/20 06/24/20 Rx release ondansetron 4 mg disintegrating 4 mg PO Q6H PRN #90 tab 06/03/20 06/30/20 Rx tablet prednisone 10 mg PO DAILY #20 tab 06/12/20 06/24/20 Rx buspirone 5 mg tablet 5 mg PO DAILY #20 tab 06/17/20 06/24/20 Rx nystatin 100,000 unit/mL oral 500,000 unit BUCCAL QID 10 Days 06/17/20 06/24/20 Rx suspension #200 ml isosorbide mononitrate 30 mg PO DAILY@1200 06/30/20 06/30/20 History tramadol 50 mg PO Q8H PRN 06/30/20 06/30/20 History Patient History Medical History AAA (abdominal aortic aneurysm) PCP monitoring. "Mild fusiform aneurysmal dilatation of the distal thoracic and abdominal aorta." per 02/27/[address] CAD (coronary artery disease) Severe multivessel coronary artery diseaseoccluded distal right, occluded distal circumflex, 90% focal stenosis in mid circumflex into OM1 - follows with Dr. Pfeiffer Degenerative joint disease, multiple joints on both sides of body Dyslipidemia ESRD (end stage renal disease) on dialysis started dialysis 12/2019 - [facility] follows with Dr. Kaur Fibromyalgia GERD (gastroesophageal reflux disease) History of breast cancer Lt lumpectomy/chemo/radiation 2017 History of myocardial infarction silent -- informed in 2018 of evidence of previous CT History of skin cancer removed History of stent insertion of renal artery Lt History of ulcerative colitis Hypertension Mitral regurgitation Osteoarthritis PAD (peripheral artery disease) Peripheral neuropathy Right renal artery stenosis h/o failed attempt to stent Rt renal artery per pt - atheroemboli to her feet and kidneys Spinal stenosis Surgical History History of anesthesia reaction "easy to put out and hard to wake up" History of breast biopsy History of cardiac catheterization 2018 [place] -abn stress test - no stents History of colectomy No colostomy, anastamosis of small bowel. History of colonoscopy History of esophagogastroduodenoscopy (EGD) History of lumpectomy of left breast History of vascular access device temporary dialysis catheter to Rt chest History of vascular surgery 03/22/2020 DR Pfeiffer [facility] stents to BLLE Family History Mother Colon cancer Cardiac disorder Hypertension Father Colon cancer Cardiac disorder Cancer Family/Other Coronary arteriosclerosis Other No family history of adverse response to anesthesia Social History Smoking Status: Never smoker Second Hand Exposure: Yes (hx); Hx Alcohol Use: No Hx Substance Use: No Preferred Language: [place] Communication Ability: Effective Deputy Sheriff/Investigator Required: No Beliefs That Will Affect Care: None marital status: Current Living Situation: Spouse current occupational status: retired How many Children do You have: 1 How many Children do You have Comment: not local. able to assist with care as needed. Feels Safe at Home: Yes Diet Comment: renal diet during the past year weight has: decreased > 10 lbs Assistive Devices: None Review of Systems Constitutional: no fever Eyes: no problem reported Ear, Nose, Mouth, Throat: no problem reported Respiratory: + cough and + dyspnea Cardiovascular: + chest pain; no palpitations and no edema Gastrointestinal: no abdominal pain, no vomiting and no diarrhea/loose stools Integumentary: no rash Neurologic: no falls and no confusion Physical Exam Constitutional: + frail appearing; not in distress Eyes: PERRL, conjunctivae normal, anicteric sclerae ENMT: external ear and nose normal, oropharynx normal Neck: trachea midline, no thyromegaly Respiratory: Auscultation: + rales Cardiovascular: Rate/Rhythm: + tachycardic Gastrointestinal (Abdomen): normal bowel sounds, soft, nontender, no hepatosplenomegaly Musculoskeletal: Extremities: no cyanosis Skin: no rashes, warm and dry Neurologic: awake; not confused Results & Data ([facility]) Vital Signs (Past 12 Hours) Vital Signs Temp Pulse Pulse Resp BP BP Pulse Ox 06/30/20 07:28 98 H 22 101/79 87 L 06/30/20 06:19 101 H 28 H 94 06/30/20 06:07 84 L 06/30/20 06:00 106 H 32 H 98/80 L 86 L 06/30/20 05:41 108 H 28 H 90 06/30/20 05:39 110 H 28 H 06/30/20 05:30 110 H 27 H 102/68 88 L 06/30/20 05:00 109 H 28 H 100/68 93 06/30/20 04:30 109 H 30 H 117/80 96 06/30/20 03:58 99 06/30/20 03:48 116 H 27 H 114/78 91 06/30/20 03:40 36.6 C 112 H 18 113/72 82 L Pulse Ox 06/30/20 07:28 06/30/20 06:19 06/30/20 06:07 06/30/20 06:00 06/30/20 05:41 06/30/20 05:39 91 06/30/20 05:30 06/30/20 05:00 06/30/20 04:30 06/30/20 03:58 06/30/20 03:48 06/30/20 03:40 Laboratory Tests 06/09/20 06/09/20 06/11/20 04:00 04:00 06:44 WBC 15.88 H Hgb 10.3 L Hct 31.5 L Plt Count 276 Sodium 133 L Potassium 4.6 Chloride 95 L Carbon Dioxide 28 BUN 30 H Creatinine 6.81 H* Glucose 105 H Troponin I 0.955 H* NT-Pro-B Natriuret Pep Albumin 06/30/20 06/30/20 04:27 04:27 WBC 9.80 Hgb 9.8 L Hct 30.5 L Plt Count 183 Sodium 135 L Potassium 4.8 Chloride 101 Carbon Dioxide 27 BUN 35 H Creatinine 7.23 H* Glucose 96 Troponin I 0.579 H* NT-Pro-B Natriuret Pep 82527 H Albumin 3.1 L PG Care Time/CCT Total # of Minutes Spent Total Time Spent with Patient: Total time spent is greater than 50% in coordination of care (as documented) at patient's floor/unit and/or counseling patient: Coding Level of Care Code 68255 Inpt Consult Level 5 Diagnoses Hypoxia R09.02 ESRD (end stage renal disease) on dialysis N18.6; Z99.2 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
[2020-06-30 08:35] LABS: D Dimer 12110 ug/L FEU (0-500)
[2020-06-30 08:58] LABS: Phosphorus 3.2 mg/dl (2.5-4.9); Troponin I 0.69 ng/ml (0-0.045)
--- NOTE | 2020-06-30 11:31 | Dialysis Progress Note ---
Date of Service June 30, 2020 Assessment & Plan (1) ESRD (end stage renal disease) on dialysis: * Clinically improving with HD and UF * Patient remains hemodynamically stable w/ UF * IJ THC running A-->A * No change to current dialysis Rx * Will reassess need for HD again in am Admission and Anticipated Discharge Date Admission Date: June 30, 2020 Subjective Mrs. Arnett was seen & examined while on HD this morning. She reports that her breathing is subjectively improved Physical Exam Constitutional: remains on BiPAP Neck: R IJ THC running A-->A at Qb 300 cc/min Respiratory: Auscultation: + rales Cardiovascular: Rate/Rhythm: regular rate Results & Data ([facility]) Vital Signs (Past 12 Hours) Vital Signs Temp Pulse Pulse Pulse Resp BP BP 06/30/20 10:59 90 06/30/20 10:40 90 144/91 H 06/30/20 10:20 90 134/89 06/30/20 10:00 91 H 140/91 06/30/20 09:39 90 144/91 H 06/30/20 09:26 90 144/98 H 06/30/20 08:57 91 H 127/86 06/30/20 08:34 93 H 97/71 L 06/30/20 08:22 36.6 C 96 H 06/30/20 07:28 98 H 22 101/79 06/30/20 06:19 101 H 28 H 06/30/20 06:07 06/30/20 06:00 106 H 32 H 98/80 L 06/30/20 05:41 108 H 28 H 06/30/20 05:39 110 H 28 H 06/30/20 05:30 110 H 27 H 102/68 06/30/20 05:00 109 H 28 H 100/68 06/30/20 04:30 109 H 30 H 117/80 06/30/20 03:58 06/30/20 03:48 116 H 27 H 114/78 06/30/20 03:40 36.6 C 112 H 18 113/72 Pulse Ox Pulse Ox 06/30/20 10:59 06/30/20 10:40 06/30/20 10:20 06/30/20 10:00 06/30/20 09:39 06/30/20 09:26 06/30/20 08:57 06/30/20 08:34 06/30/20 08:22 06/30/20 07:28 87 L 06/30/20 06:19 94 06/30/20 06:07 84 L 06/30/20 06:00 86 L 06/30/20 05:41 90 06/30/20 05:39 91 06/30/20 05:30 88 L 06/30/20 05:00 93 06/30/20 04:30 96 06/30/20 03:58 99 06/30/20 03:48 91 06/30/20 03:40 82 L [facility] Procedure Codes (Charges) Renal/Urologic Renal/Urologic: 72038 Hemodialysis, One Evaluation Coding Level of Care Code None Diagnoses ESRD (end stage renal disease) on dialysis N18.6; Z99.2 CPT Codes Renal/Urologic - Renal/Urologic: 36316 Hemodialysis, One Evaluation ([id number])
[2020-06-30] MEDS ORDERED: EXEMESTANE 25 MG PO SCH (12:00)
--- NOTE | 2020-06-30 13:39 | Electrocardiogram Report ---
Test Reason : Blood Pressure : / mmHG Vent. Rate : 115 BPM Atrial Rate : 115 BPM P-R Int : 126 ms QRS Dur : 088 ms QT Int : 330 ms P-R-T Axes : 050 059 -07 degrees QTc Int : 456 ms Sinus tachycardia Possible Left atrial enlargement Abnormal ECG When compared with ECG of 11-JUN-2020 05:57, No significant change was found Confirmed by Sai Chen ([id number]) on 06/30/2020 1:38:57 PM Referred By: REFERRED SELF Confirmed By:Sai Chen
[2020-06-30] MEDS: ACETAMINOPHEN 325 MG TAB PO PRN ×2 (13:57→20:17)
[2020-06-30] MEDS: CLOPIDOGREL BISULFATE 75 MG TAB PO SCH (14:18)
[2020-06-30] MEDS: HEPARIN SOD 5,000 UNIT/0.5 ML VIAL SQ SCH ×2 (14:19→20:18)
[2020-06-30] MEDS ORDERED: OPTIRAY 320 125ml IV ONE (14:43)
--- NOTE | 2020-06-30 14:56 | CT Scan Report ---
CT angio chest PE protocol CT DOSE: 382.61 mGy.cm HISTORY: 79 years-old Female with PE. Acute shortness of breath TECHNIQUE: Multiple CTA images of the chest were obtained after the intravenous administration of 118 ml Optiray 320. Coronal and sagittal MIPS were obtained from the axial data set and were submitted for review. All measurements were obtained according to NASCET criteria. A dose lowering technique w as utilized adhering to the principles of ALARA. COMPARISON: Chest radiograph of same day, chest CT 01/05/2020 FINDINGS: CTA: Cardiomegaly. No pericardial effusion. Moderate coronary artery calcifications. Extensive mixed plaqu e of the thoracic aorta. Aorta is suboptimally evaluated secondary to contrast bolus timing. Aneurysm dilation of the proximal descending thoracic aorta is unchanged measuring approximately 5.1 x 4.8 cm . Descending thoracic aortic tortuosity. Mild dilation of the aorta at the diaphragmatic hiatus. Refl ux of contrast into the IVC and hepatic veins. No filling defects identified to suggest pulmonary emb piper. CT CHEST: Unremarkable thyroid. No adenopathy identified. Small to moderate layering pleural effusions. There i s no pneumothorax. Dependent bibasilar consolidation. Unchanged bilateral cylindrical bronchiectasis. Intralobular septal thickening with intermixed right greater than left groundglass and consolidative opacities. Central airways are patent. No pneumoperitoneum. No acute process of the imaged upper abdomen. Heterogeneity of the left breast w ith chronic probable seroma, 1.6 x 1.8 cm adjacent surgical clips and architectural distortion of the inferior left breast. No acute fracture or suspicious bone lesion. IMPRESSION: 1. No pulmonary emboli. 2. Cardiomegaly with interstitial pulmonary edema, layering pleural effusions and dependent bibasilar compressive atelectasis. 3. Right greater than left intermixed groundglass and consolidative opacities may reflect asymmetric alveolar pulmonary edema versus a superimposed pneumonia. 4. No adenopathy. 5. Unchanged fusiform dilation of the descending thoracic aorta measuring up to 5.1 cm. ACT 112: Negative or not required by law. The above report was generated using voice recognition software. It may contain grammatical, syntax o r spelling errors. Electronically signed by: Tai Browning M.D. 06/30/2020 2:55 PM
--- NOTE | 2020-06-30 18:16 | Hospitalist Progress Note ---
Date of Service June 30, 2020 Assessment & Plan (1) Acute respiratory failure with hypoxia: 79yo female with ESRD on HD q M/W/F presenting with acute hypoxic respiratory failure secondary to flash pulmonary edema and cardiac ischemia. Initially was requiring BiPAP 12/8/100% saturating 93%. CXR suggestive of pulmonary edema. Patient presented similarly last month. Now weaned down to 8 L oxygen mask after removing 2.5 L of fluid with urgent dialysis today as well as received 1 dose of IV Lasix in the ER -Repeat dialysis again tomorrow -Continue supplemental O2 to keep pulse ox greater than 90% -Appreciate nephrology consultation -Consult cardiology-plan for cardiac catheterization likely on Sunday for intervention on her 95% mid circumflex lesion -D-dimer significantly elevated 12,000-CT angiogram of the chest performed after discussion with nephrology-negative for PE; no evidence of DVT in the lower extremities on examination Procalcitonin is only minimally elevated in the setting of ESRD is not significant Covid-19 test is negative Troponin trending upward as below (2) Troponin level elevated: In setting of ESRD, known CAD. Patient had cardiac catheterization performed last hospital stay which revealed stable severe CAD, unchanged from prior Troponin 0.5/0.69/1.35-trending upward Had chest pain associate with flash pulmonary edema upon admission Discussed with cardiology-likely related to her tight circumflex lesion seen on cardiac catheterization from 3 weeks ago Plan for intervention likely on Sunday after pulmonary status is improved Continue to trend troponin -Continue ASA, Plavix, Statin and Metoprolol as BP allows Appreciate cardiology management (3) CAD (coronary artery disease): Patient with known CAD - last catheterization on 06/10/20. Chest pressure presently in setting of acute hypoxic respiratory failure -Continue ASA, Plavix, Crestor and Metoprolol as BP allows (4) GERD (gastroesophageal reflux disease): Chronic -Continue Protonix (5) End stage renal disease: Patient on HD q M/W/F -Nephrology consultation appreciated Had hemodialysis today urgently and will likely have it again tomorrow (6) Dyslipidemia: Chronic -Continue Crestor (7) Hypertension: Blood pressure borderline low -Hold isosorbide and will give metoprolol as able to -Continue to monitor Ppx - Heparin Code - DNR/DNI confirmed with patient at bedside. Dispo continued stay on PCU Admission and Anticipated Discharge Date Admission Date: June 30, 2020 Subjective Patient reports feeling much improved since this morning. She was weaned off BiPAP after dialysis and is on 10 L by oxygen facemask when I saw her. I turned her down to 8 L and her pulse ox remained in the low 90s. She was able to lie only at a slight incline in the bed without any orthopnea. She denied any further chest pain. She had 2 and half liters taken off at dialysis today. Denies any nausea or vomiting, no abdominal pains. Telemetry with normal sinus rhythm and normal rates I discussed her case with cardiology, Dr. Pfeiffer, on the phone. I also discussed her case with nephrology, Dr. Perez, in person Review of Systems Review of Systems: All systems reviewed & are unremarkable except as noted in HPI & below Physical Exam Constitutional: WD/WN, vitals as above Eyes: + anicteric sclerae With oxygen facemask in place Neck: trachea midline, no thyromegaly Respiratory: normal respiratory effort Auscultation: + crackles (Bibasilar); no rhonchi and no wheezes Cardiovascular: RRR, no murmur, no edema Chest (Breasts): Chest: + vascular access device or port (Right side tunneled dialysis catheter) Gastrointestinal (Abdomen): normal bowel sounds, soft, nontender, no hepatosplenomegaly Musculoskeletal: Extremities: + extremities abnormal to inspection (Right great, third, and fourth toes with black eschar) Left third fourth and fifth toes also with black eschar and purplish discoloration of second toe Neurologic: moves all extremities and awake; no focal motor deficits Psychiatric: A+Ox3, euthymic affect Lymphatic: no lymphedema Results & Data Results & Data ([facility]) Vital Signs (Past 12 Hours) Vital Signs Temp Pulse Pulse Pulse Resp BP BP 06/30/20 15:50 36.6 C 80 20 108/71 06/30/20 13:49 36.7 C 95 H 20 124/81 06/30/20 12:53 36.8 C 70 137/76 06/30/20 12:20 78 137/66 06/30/20 12:00 78 144/70 H 06/30/20 11:40 42 L 115/26 L 06/30/20 11:20 78 134/88 06/30/20 10:59 90 06/30/20 10:40 90 144/91 H 06/30/20 10:20 90 134/89 06/30/20 10:00 91 H 140/91 06/30/20 09:39 90 144/91 H 06/30/20 09:26 90 144/98 H 06/30/20 08:57 91 H 127/86 06/30/20 08:34 93 H 97/71 L 06/30/20 08:22 36.6 C 96 H 06/30/20 07:28 98 H 22 101/79 06/30/20 06:19 101 H 28 H Pulse Ox 06/30/20 15:50 92 06/30/20 13:49 95 06/30/20 12:53 06/30/20 12:20 06/30/20 12:00 06/30/20 11:40 06/30/20 11:20 06/30/20 10:59 06/30/20 10:40 06/30/20 10:20 06/30/20 10:00 06/30/20 09:39 06/30/20 09:26 06/30/20 08:57 06/30/20 08:34 06/30/20 08:22 06/30/20 07:28 87 L 06/30/20 06:19 94 Laboratory Results 06/30/20 06/30/20 06/30/20 Range/Units 21:27 16:15 15:16 WBC (4.8-10.8) K/uL RBC (4.2-5.4) M/uL Hgb (12.0-16.0) g/dL Hct (37-47) % MCV (80-100) fL MCH (25-34) pg MCHC (32-36) g/dL RDW Std Deviation (36.4-46.3) fL RDW Coeff of Max (11.5-14.5) % Plt Count (130-400) K/uL MPV (7.4-10.4) fL Immature Gran % (Auto) % Neut % (Auto) % Lymph % (Auto) % [place] % (Auto) % Eos % (Auto) % Baso % (Auto) % Neut # (Auto) (1.4-6.5) K/uL Lymph # (Auto) (1.2-3.4) K/uL [place] # (Auto) (0.11-0.59) K/uL Eos # (Auto) (0-0.5) K/uL Baso # (Auto) (0-0.2) K/uL Immature Gran # (Auto) (0.00-0.02) K/uL PT (9.0-12.0) Seconds INR (0.9-1.1) D-Dimer (0-500) ug/L FEU ABG pH (7.35-7.45) ABG pCO2 (35-46) mmHg ABG pO2 (80-95) mmHg ABG HCO3 (19-24) mmol/L ABG O2 Saturation (90-95) % ABG Base Excess (-9-1.8) mEq/L Jaren Test (Pos) Barometric Pressure mm/Hg Oxygen Given Sodium (136-145) mmol/L Potassium (3.5-5.1) mmol/L Chloride (98-107) mmol/L Carbon Dioxide (21-32) mmol/L Anion Gap (3-11) BUN (7-18) mg/dl Creatinine (0.6-1.2) mg/dl Est Cr Clr Drug Dosing ml/min Est GFR ( Amer) Est GFR (Non-Af Amer) BUN/Creatinine Ratio (10-20) Glucose (70-99) mg/dl Calcium (8.5-10.1) mg/dl Phosphorus (2.5-4.9) mg/dl Magnesium (1.8-2.4) mg/dl Total Bilirubin (0.2-1) mg/dl AST (15-37) U/L ALT (12-78) U/L Alkaline Phosphatase (45-117) U/L Troponin I 1.180 H* 1.350 H* (0-0.045) ng/ml NT-Pro-B Natriuret Pep (0-1800) pg/ml Total Protein (6.4-8.2) gm/dl Albumin (3.4-5.0) gm/dl Globulin (2.5-4.0) gm/dl Albumin/Globulin Ratio (0.9-2) Procalcitonin (0-0.5) ng/ml Nasal Screen MRSA (PCR) Negative (Negative) COVID-19 Eval Order SARS-CoV-2 (PCR) (Negative) Influenza Type A (PCR) (Neg) Influenza Type B (PCR) (Neg) RSV (RT-PCR) (Neg) 06/30/20 06/30/20 06/30/20 Range/Units 07:54 07:54 07:54 WBC (4.8-10.8) K/uL RBC (4.2-5.4) M/uL Hgb (12.0-16.0) g/dL Hct (37-47) % MCV (80-100) fL MCH (25-34) pg MCHC (32-36) g/dL RDW Std Deviation (36.4-46.3) fL RDW Coeff of Max (11.5-14.5) % Plt Count (130-400) K/uL MPV (7.4-10.4) fL Immature Gran % (Auto) % Neut % (Auto) % Lymph % (Auto) % [place] % (Auto) % Eos % (Auto) % Baso % (Auto) % Neut # (Auto) (1.4-6.5) K/uL Lymph # (Auto) (1.2-3.4) K/uL [place] # (Auto) (0.11-0.59) K/uL Eos # (Auto) (0-0.5) K/uL Baso # (Auto) (0-0.2) K/uL Immature Gran # (Auto) (0.00-0.02) K/uL PT (9.0-12.0) Seconds INR (0.9-1.1) D-Dimer (0-500) ug/L FEU ABG pH 7.43 (7.35-7.45) ABG pCO2 39 (35-46) mmHg ABG pO2 65 L (80-95) mmHg ABG HCO3 26 H (19-24) mmol/L ABG O2 Saturation 92.6 (90-95) % ABG Base Excess 1.2 (-9-1.8) mEq/L Jaren Test p (Pos) Barometric Pressure 732.3 mm/Hg Oxygen Given 80% Sodium (136-145) mmol/L Potassium (3.5-5.1) mmol/L Chloride (98-107) mmol/L Carbon Dioxide (21-32) mmol/L Anion Gap (3-11) BUN (7-18) mg/dl Creatinine (0.6-1.2) mg/dl Est Cr Clr Drug Dosing ml/min Est GFR ( Amer) Est GFR (Non-Af Amer) BUN/Creatinine Ratio (10-20) Glucose (70-99) mg/dl Calcium (8.5-10.1) mg/dl Phosphorus 3.2 (2.5-4.9) mg/dl Magnesium (1.8-2.4) mg/dl Total Bilirubin (0.2-1) mg/dl AST (15-37) U/L ALT (12-78) U/L Alkaline Phosphatase (45-117) U/L Troponin I 0.690 H* (0-0.045) ng/ml NT-Pro-B Natriuret Pep (0-1800) pg/ml Total Protein (6.4-8.2) gm/dl Albumin (3.4-5.0) gm/dl Globulin (2.5-4.0) gm/dl Albumin/Globulin Ratio (0.9-2) Procalcitonin 0.55 H (0-0.5) ng/ml Nasal Screen MRSA (PCR) (Negative) COVID-19 Eval Order SARS-CoV-2 (PCR) (Negative) Influenza Type A (PCR) (Neg) Influenza Type B (PCR) (Neg) RSV (RT-PCR) (Neg) 06/30/20 06/30/20 06/30/20 Range/Units 07:54 04:48 04:48 WBC (4.8-10.8) K/uL RBC (4.2-5.4) M/uL Hgb (12.0-16.0) g/dL Hct (37-47) % MCV (80-100) fL MCH (25-34) pg MCHC (32-36) g/dL RDW Std Deviation (36.4-46.3) fL RDW Coeff of Max (11.5-14.5) % Plt Count (130-400) K/uL MPV (7.4-10.4) fL Immature Gran % (Auto) % Neut % (Auto) % Lymph % (Auto) % [place] % (Auto) % Eos % (Auto) % Baso % (Auto) % Neut # (Auto) (1.4-6.5) K/uL Lymph # (Auto) (1.2-3.4) K/uL [place] # (Auto) (0.11-0.59) K/uL Eos # (Auto) (0-0.5) K/uL Baso # (Auto) (0-0.2) K/uL Immature Gran # (Auto) (0.00-0.02) K/uL PT (9.0-12.0) Seconds INR (0.9-1.1) D-Dimer 07666 H* (0-500) ug/L FEU ABG pH (7.35-7.45) ABG pCO2 (35-46) mmHg ABG pO2 (80-95) mmHg ABG HCO3 (19-24) mmol/L ABG O2 Saturation (90-95) % ABG Base Excess (-9-1.8) mEq/L Jaren Test (Pos) Barometric Pressure mm/Hg Oxygen Given Sodium (136-145) mmol/L Potassium (3.5-5.1) mmol/L Chloride (98-107) mmol/L Carbon Dioxide (21-32) mmol/L Anion Gap (3-11) BUN (7-18) mg/dl Creatinine (0.6-1.2) mg/dl Est Cr Clr Drug Dosing ml/min Est GFR ( Amer) Est GFR (Non-Af Amer) BUN/Creatinine Ratio (10-20) Glucose (70-99) mg/dl Calcium (8.5-10.1) mg/dl Phosphorus (2.5-4.9) mg/dl Magnesium (1.8-2.4) mg/dl Total Bilirubin (0.2-1) mg/dl AST (15-37) U/L ALT (12-78) U/L Alkaline Phosphatase (45-117) U/L Troponin I (0-0.045) ng/ml NT-Pro-B Natriuret Pep (0-1800) pg/ml Total Protein (6.4-8.2) gm/dl Albumin (3.4-5.0) gm/dl Globulin (2.5-4.0) gm/dl Albumin/Globulin Ratio (0.9-2) Procalcitonin (0-0.5) ng/ml Nasal Screen MRSA (PCR) (Negative) COVID-19 Eval Order CovFluRsv at [facility] SARS-CoV-2 (PCR) NEGATIVE (Negative) Influenza Type A (PCR) Negative (Neg) Influenza Type B (PCR) Negative (Neg) RSV (RT-PCR) Negative (Neg) 06/30/20 06/30/20 06/30/20 Range/Units 04:27 04:27 04:27 WBC 9.80 (4.8-10.8) K/uL RBC 3.01 L (4.2-5.4) M/uL Hgb 9.8 L (12.0-16.0) g/dL Hct 30.5 L (37-47) % MCV 101.3 H (80-100) fL MCH 32.6 (25-34) pg MCHC 32.1 (32-36) g/dL RDW Std Deviation 60.8 H (36.4-46.3) fL RDW Coeff of Max 16.3 H (11.5-14.5) % Plt Count 183 (130-400) K/uL MPV 9.7 (7.4-10.4) fL Immature Gran % (Auto) 0.2 % Neut % (Auto) 78.1 % Lymph % (Auto) 14.3 % [place] % (Auto) 5.8 % Eos % (Auto) 1.3 % Baso % (Auto) 0.3 % Neut # (Auto) 7.65 H (1.4-6.5) K/uL Lymph # (Auto) 1.40 (1.2-3.4) K/uL [place] # (Auto) 0.57 (0.11-0.59) K/uL Eos # (Auto) 0.13 (0-0.5) K/uL Baso # (Auto) 0.03 (0-0.2) K/uL Immature Gran # (Auto) 0.02 (0.00-0.02) K/uL PT 11.2 (9.0-12.0) Seconds INR 1.1 (0.9-1.1) D-Dimer (0-500) ug/L FEU ABG pH (7.35-7.45) ABG pCO2 (35-46) mmHg ABG pO2 (80-95) mmHg ABG HCO3 (19-24) mmol/L ABG O2 Saturation (90-95) % ABG Base Excess (-9-1.8) mEq/L Jaren Test (Pos) Barometric Pressure mm/Hg Oxygen Given Sodium 135 L (136-145) mmol/L Potassium 4.8 (3.5-5.1) mmol/L Chloride 101 (98-107) mmol/L Carbon Dioxide 27 (21-32) mmol/L Anion Gap 7.0 (3-11) BUN 35 H (7-18) mg/dl Creatinine 7.23 H* (0.6-1.2) mg/dl Est Cr Clr Drug Dosing 4.4 ml/min Est GFR ( Amer) 5.6 Est GFR (Non-Af Amer) 4.8 BUN/Creatinine Ratio 4.9 L (10-20) Glucose 96 (70-99) mg/dl Calcium 8.9 (8.5-10.1) mg/dl Phosphorus (2.5-4.9) mg/dl Magnesium 1.8 (1.8-2.4) mg/dl Total Bilirubin 0.4 (0.2-1) mg/dl AST 20 (15-37) U/L ALT 15 (12-78) U/L Alkaline Phosphatase 71 (45-117) U/L Troponin I 0.579 H* (0-0.045) ng/ml NT-Pro-B Natriuret Pep 50983 H (0-1800) pg/ml Total Protein 7.7 (6.4-8.2) gm/dl Albumin 3.1 L (3.4-5.0) gm/dl Globulin 4.6 H (2.5-4.0) gm/dl Albumin/Globulin Ratio 0.7 L (0.9-2) Procalcitonin (0-0.5) ng/ml Nasal Screen MRSA (PCR) (Negative) COVID-19 Eval Order SARS-CoV-2 (PCR) (Negative) Influenza Type A (PCR) (Neg) Influenza Type B (PCR) (Neg) RSV (RT-PCR) (Neg) PG Care Time/CCT Total # of Minutes Spent Total Time Spent with Patient: Total time spent is greater than 50% in coordination of care (as documented) at patient's floor/unit and/or counseling patient: Coding Level of Care Code None Diagnoses Acute respiratory failure with hypoxia J96.01 Troponin level elevated R77.8 CAD (coronary artery disease) I25.10 Associated angina: without angina Coronary Disease-Associated Artery/Lesion type: [place] artery [place] vs. transplanted heart: [place] heart GERD (gastroesophageal reflux disease) K21.9 Esophagitis presence: esophagitis presence not specified End stage renal disease N18.6 Dyslipidemia E78.5 Hypertension I15.0 Hypertension type: renovascular hypertension (1) CAD (coronary artery disease) Associated angina: without angina Coronary Disease-Associated Artery/Lesion type: [place] artery [place] vs. transplanted heart: [place] heart Qualified Code(s): I25.10 - Atherosclerotic heart disease of [place] coronary artery without angina pectoris (2) GERD (gastroesophageal reflux disease) Esophagitis presence: esophagitis presence not specified Qualified Code(s): K21.9 - Gastro-esophageal reflux disease without esophagitis (3) Hypertension Hypertension type: renovascular hypertension Qualified Code(s): I15.0 - Renovascular hypertension
[2020-06-30] MEDS: GABAPENTIN 100 MG CAP PO SCH (20:15)
[2020-06-30] MEDS: ROSUVASTATIN CALCIUM 10 MG TAB PO SCH (20:16)
[2020-06-30] MEDS: ASPIRIN 81 MG ECTAB PO SCH (20:16)
[2020-06-30] MEDS: METOPROLOL SUCC 50MG EXT REL TAB PO SCH (20:18)
--- NOTE | 2020-07-01 00:35 | Cardiology Consultation ---
Date of Consultation July 01, 2020 Assessment & Plan (1) Acute respiratory failure: 2. Multivessel coronary artery disease 3. ESRD on HD 4. PAD post endovascular intervention, multiple ischemic toes 5. Moderate mitral regurgitation 6. Anemia 7. Pulmonary hypertension Patient here with recurrent acute onset respiratory failure in the setting of partial session of dialysis. Symptoms again occurred with chest pain and rising troponin on presentation. Appears to be very fluid sensitive and suspect related to myocardial ischemia in the setting of severe multivessel disease most notably mid circumflex. Question whether mid circumflex disease contributing to at least moderate mitral re gurgitation as well. Discussed with patient pursuing PCI of circumflex. Procedure would be higher risk due to ectatic segment after stenosis but do not feel risk is prohibitive. Patient wishes to think about procedure further but if interested could pursue on Sunday. In the interim continue DAPT with aspirin, clopidogrel. If recurrent symptoms start systemic IV anticoagulation. In regards to patient's PAD and ischemic toes. Has palpable distal pulses on exam and again concerned that toes a result of emboli in the setting of known severe, mobile/friable atherosclerotic plaque throughout the aorta. We discussed long-term p.o. anticoagulation which he again wishes to think about. We will obtain lower extremity ultrasound/toe pressures as an outpatient. We will follow. History of Present Illness Attending Physician: Flores Flores MD History of Present Illness Mrs. Arnett is a very pleasant 79-year-old female with a history significant for CAD, PAD (s/p Right SFA NICKY and stent, INES balloon, Left SFA NICKY and stents, distal pop/peroneal angioplasty), bilateral renal artery stenosis s/p stents, ESRD on HD MWF, AAA, hypertension, dyslipidemia, and ulcerative colitis s/p colectomy. She has had the following studies/procedures: 1. Cardiac catheterization 01/22/2018: Diffuse proximal LAD 20-30%. Mid LAD 30-40%. Early mid circumflex 80-90% prior to ectatic segment and takeoff of large OM1. Proximal OM1 50-60%. Mid circumflex 100%, filling distally via [id number] collaterals. Mid RCA 40-50%. Late mid RCA 100% with faint right to right collaterals. Distal RCA fills via [id number] collaterals. 2. Renal artery angiogram September 2019 [facility] [place]: Renal artery stenting was unsuccessful. Complicated by atheroemboli to feet and kidneys. 3. Hemodialysis began December 2019. 4. Lower extremity angiography February 2020: Bilateral SFA drug-eluting balloon and stents. Right INES and left distal popliteal/peroneal arteries treated with angioplasty. 5. Cardiac catheterization 06/10/2020: 95% mid circumflex prior to aneurysmal OM 2, 100% distal LCx [employer] fills via left to left collaterals, 100% distal RCA [employer] fills via [id number] collaterals. 6. ANTHONY 06/10/2020: LVEF 60-65%, aortic valve sclerosis, moderate MR, severe atherosclerotic disease in thoracic aorta with multiple mobile atheromas Patient previously admitted 2+ weeks ago with acute shortness of breath/chest discomfort thought in part secondary to volume overload. Symptoms improved with dialysis. Mild troponin elevation, repeat cardiac catheterization showed stable CAD again with severe mid circumflex disease. ANTHONY showed moderate mitral regurgitation. Patient returns today after again developed acute shortness of breath. States this time similar but different that more chest pain. Reports partial dialysis yesterday in the setting of difficulties with AV graft. Seen today after dialysis and patient reported shortness of breath back at baseline. ECG showed sinus rhythm with inferior T wave inversions unchanged from prior. Troponin peaked at 1.3. Allergies Allergy/AdvReac Type Severity Reaction Status Date / Time hydrocodone Allergy Intermediate RASH, HIVES Verified 06/24/20 10:07 Sulfa (Sulfonamide AdvReac Intermediate "SULFA Verified 06/24/20 10:07 Antibiotics) DRUGS": N/V spironolactone AdvReac Mild GI Verified 06/24/20 10:07 SYMPTOMS,NAUSEA AND VOMITING Aldactazide AdvReac Unknown GI Unverified 07/24/17 10:20 SYMPTOMS,NAUSEA AND VOMITING hydrochlorothiazide AdvReac Unknown GI Verified 06/24/20 10:07 SYMPTOMS,NAUSEA AND VOMITING Home Medications Medication Instructions Recorded Confirmed Type cholecalciferol (vitamin D3) 50 2,000 units PO QAM 10/16/18 06/30/20 History mcg (2,000 unit) capsule coenzyme Q10 200 mg capsule 200 mg PO QAM cap 10/31/18 06/30/20 History exemestane 25 mg tablet 25 mg PO DAILY@1200 tab 10/31/18 06/30/20 History aspirin [Enteric Coated Aspirin] 81 mg PO HS 01/23/19 06/30/20 History clopidogrel 75 mg tablet 75 mg PO QAM #90 tab 12/29/19 06/30/20 Rx metoprolol succinate 50 mg 50 mg PO HS #90 tab 01/16/20 06/30/20 Rx tablet,extended release 24 hr amlodipine 10 mg PO QAM 02/27/20 06/30/20 History gabapentin 100 mg capsule 100 mg PO HS cap 04/01/20 06/30/20 History rosuvastatin 10 mg tablet 10 mg PO HS #90 tab 04/08/20 06/30/20 Rx lansoprazole 30 mg capsule,delayed 30 mg PO DAILY #30 cap 06/03/20 06/24/20 Rx release ondansetron 4 mg disintegrating 4 mg PO Q6H PRN #90 tab 06/03/20 06/30/20 Rx tablet prednisone 10 mg PO DAILY #20 tab 06/12/20 06/24/20 Rx buspirone 5 mg tablet 5 mg PO DAILY #20 tab 06/17/20 06/24/20 Rx nystatin 100,000 unit/mL oral 500,000 unit BUCCAL QID 10 Days 06/17/20 06/24/20 Rx suspension #200 ml isosorbide mononitrate 30 mg PO DAILY@1200 06/30/20 06/30/20 History tramadol 50 mg PO Q8H PRN 06/30/20 06/30/20 History Patient History Medical History AAA (abdominal aortic aneurysm) PCP monitoring. "Mild fusiform aneurysmal dilatation of the distal thoracic and abdominal aorta." per 02/27/[address] CAD (coronary artery disease) Severe multivessel coronary artery diseaseoccluded distal right, occluded distal circumflex, 90% focal stenosis in mid circumflex into OM1 - follows with Dr. Pfeiffer Degenerative joint disease, multiple joints on both sides of body Dyslipidemia ESRD (end stage renal disease) on dialysis started dialysis 12/2019 - [facility] - follows with Dr. Kaur Fibromyalgia GERD (gastroesophageal reflux disease) History of breast cancer Lt lumpectomy/chemo/radiation 2016 History of myocardial infarction silent -- informed in 2018 of evidence of previous NH History of skin cancer removed History of stent insertion of renal artery Lt History of ulcerative colitis Hypertension Mitral regurgitation Osteoarthritis PAD (peripheral artery disease) Peripheral neuropathy Right renal artery stenosis h/o failed attempt to stent Rt renal artery per pt - atheroemboli to her feet and kidneys Spinal stenosis Surgical History History of anesthesia reaction "easy to put out and hard to wake up" History of breast biopsy History of cardiac catheterization 2017 [place] -abn stress test - no stents History of colectomy No colostomy, anastamosis of small bowel. History of colonoscopy History of esophagogastroduodenoscopy (EGD) History of lumpectomy of left breast History of vascular access device temporary dialysis catheter to Rt chest History of vascular surgery 03/22/2020 DR Pfeiffer [facility] stents to BLLE Family History Mother Colon cancer Cardiac disorder Hypertension Father Colon cancer Cardiac disorder Cancer Family/Other Coronary arteriosclerosis Other No family history of adverse response to anesthesia Social History Smoking Status: Never smoker Second Hand Exposure: No; Hx Alcohol Use: No Hx Substance Use: No Preferred Language: Uzbek Communication Ability: Effective Evaporator Required: No Beliefs That Will Affect Care: None marital status: Current Living Situation: Spouse current occupational status: retired How many Children do You have: 1 How many Children do You have Comment: not local. able to assist with care as needed. Feels Safe at Home: Yes Diet Comment: renal diet during the past year weight has: decreased > 10 lbs Assistive Devices: Oxygen - Continuous Review of Systems Review of Systems: All systems reviewed & are unremarkable except as noted in HPI & below Physical Exam Physical Exam: General: Comfortable HEENT: Sclerae anicteric, Mask in place Lungs: Clear to auscultation bilaterally, few crackles at bases Cardiac: Regular rate and rhythm, 2/6 holosystolic murmur heard at the apex Vascular: 2+ radial. 2+ DP, 1+ DP on right, 1+ DP/PT on left. Great toe on right black with ulceration over medial aspect. Second through fourth with small areas of discoloration on right. Discoloration involving multiple toes on left foot. Abdomen: Soft, nontender Extremities: No edema Neuro: Nonfocal Psych: Alert orient x3, normal affect and mood Results & Data ([facility]) Vital Signs (Past 12 Hours) Vital Signs Temp Pulse Pulse Pulse Resp BP Pulse Ox 06/30/20 23:47 98.1 F 80 20 118/77 92 06/30/20 23:24 76 06/30/20 18:42 97.5 F L 86 18 118/74 94 06/30/20 15:50 97.9 F 80 20 108/71 92 06/30/20 13:49 98.1 F 95 H 20 124/81 95 06/30/20 12:53 98.2 F 70 137/76 PG Care Time/CCT Total # of Minutes Spent Total Time Spent with Patient: Total time spent is greater than 50% in coordination of care (as documented) at patient's floor/unit and/or counseling patient: Coding Level of Care Code 21592 Initial Inpt Care Lvl 3 Diagnoses Acute respiratory failure J96.00
[2020-07-01] MEDS: HEPARIN SOD 5,000 UNIT/0.5 ML VIAL SQ SCH ×3 (05:44→21:50)
[2020-07-01 06:51] LABS: Basophils # (auto) 0.02 K/uL (0-0.2); Basophils % (auto) 0.3 %; Eosinophils # (auto) 0.34 K/uL (0-0.5); Eosinophils % (auto) 4.5 %; Hematocrit (blood only) 30.7 % (37-47); Hemoglobin 9.7 g/dL (12.0-16.0); Immature Granulocytes # (auto) 0.02 K/uL (0.00-0.02); Immature Granulocytes % (auto) 0.3 %; Lymphocytes # (auto) 1.45 K/uL (1.2-3.4); Lymphocytes % (auto) 19.2 %; Mean Corpuscular Hemoglobin 32.6 pg (25-34); Mean Corpuscular Hgb Conc 31.6 g/dL (32-36); Mean Platelet Volume 10.2 fL (7.4-10.4); Monocytes # (auto) 0.83 K/uL (0.11-0.59); Neutrophils # (auto) 4.89 K/uL (1.4-6.5); Neutrophils % (auto) 64.7 %; Platelet Count 175 K/uL (130-400); RDW Coefficient of Variation 16.5 % (11.5-14.5); RDW Standard Deviation 62.6 fL (36.4-46.3); Red Blood Count 2.98 M/uL (4.2-5.4); White Blood Count 7.55 K/uL (4.8-10.8)
[2020-07-01 07:42] LABS: BUN Creatinine Ratio 5.6 (10-20); Calcium 9.2 mg/dl (8.5-10.1); Creatinine Clr Calc Pharmacy 6.5 ml/min; Est GFR (Non-African American) 7.7; Potassium 4.9 mmol/L (3.5-5.1); Troponin I 0.923 ng/ml (0-0.045)
[2020-07-01] MEDS: CLOPIDOGREL BISULFATE 75 MG TAB PO SCH (08:18)
--- NOTE | 2020-07-01 08:33 | XRay Report ---
XR chest 1V portable HISTORY: 79 years-old Female CHF acute shortness of breath with congestive heart failure COMPARISON: Chest radiograph and CTA chest 06/30/2020 TECHNIQUE: Portable AP view of the chest FINDINGS: Dual lumen right IJ hemodialysis catheter distal tip projects over the right atrium. Cardiomegaly. La yering pleural effusions. Stable to mildly improved pulmonary edema with bibasilar and progressive ri ght perihilar consolidation. No pneumothorax. Degenerative changes of the shoulders and spine. Surgic al clips of the left breast. IMPRESSION: 1. Cardiomegaly with mildly improved pulmonary edema and layering pleural effusions. 2. There are persistent bibasilar consolidative opacities with progressive consolidation within the r ight perihilar distribution which may reflect a combination of atelectasis and pulmonary edema versus superimposed pneumonia. ACT 112: Negative or not required by law. The above report was generated using voice recognition software. It may contain grammatical, syntax o r spelling errors. Electronically signed by: Tai Browning M.D. 07/01/2020 8:32 AM
[2020-07-01] MEDS ORDERED: HEPARIN SOD (PORCINE) 1000 UNIT/ML IV ONE (08:51)
[2020-07-01] MEDS ORDERED: SODIUM CHLORIDE 0.9% 1000ML 1,000 ML IV PRN (09:00)
[2020-07-01] MEDS ORDERED: EPOETIN ALFA 10,000 UNITS/ML VIAL IV ONE (09:00)
--- NOTE | 2020-07-01 09:50 | Nephrology Progress Note ---
Date of Service July 01, 2020 Assessment & Plan (1) Hypoxia: * Improved following UF but has persistent CHF * CTA negative for PE * 06/30 COVID negative * No clinical signs/symptoms of active infection * Will provide HD today and attempt additional 3L UF * Will order follow up CXR for am (2) ESRD (end stage renal disease) on dialysis: * Will provide HD this am. Orders placed in EMR and HD RN notified. Will attempt 3 L UF * Will use IJ THC as vascular access. air liaison and special staff had difficulty w/ AVG as outpatient (3) Ischemic ulcer of toes on both feet: * Atheroembolic injury Admission and Anticipated Discharge Date Admission Date: June 30, 2020 Subjective Mrs. Arnett was seen & examined in her hospital room this morning. She was dialyzed emergently yesterday for 2.5 L UF. This morning Mrs. Arnett is requiring O2 at 10L/min FM. She denies fever or productive cough. Chest CT yesterday was negative for PE. CXR this am shows asymmetric pulmonary edema w/ possible R hilar consolidation/atelectasis. COVID testing 06/30 was negative Review of Systems Constitutional: no fever Eyes: no problem reported Ear, Nose, Mouth, Throat: no problem reported Respiratory: + cough and + dyspnea Cardiovascular: no chest pain, no palpitations and no edema Gastrointestinal: no abdominal pain, no vomiting and no diarrhea/loose stools Integumentary: no rash Neurologic: no falls and no confusion Physical Exam Constitutional: + frail appearing; not in distress Eyes: PERRL, conjunctivae normal, anicteric sclerae ENMT: external ear and nose normal, oropharynx normal Neck: trachea midline, no thyromegaly Respiratory: Auscultation: + rales Cardiovascular: Rate/Rhythm: regular rate and regular rhythm Gastrointestinal (Abdomen): normal bowel sounds, soft, nontender, no hepa tosplenomegaly Musculoskeletal: Extremities: no cyanosis Skin: no rashes, warm and dry Neurologic: awake; not confused Results & Data ([facility]) Vital Signs (Past 12 Hours) Vital Signs Temp Pulse Pulse Resp BP Pulse Ox 07/01/20 08:15 37.1 C 81 16 126/81 94 07/01/20 07:12 82 07/01/20 04:19 36.4 C L 84 18 113/80 92 06/30/20 23:47 36.7 C 80 20 118/77 92 06/30/20 23:24 76 Laboratory Tests 07/01/20 07/01/20 06:13 06:13 WBC 7.55 Hgb 9.7 L Hct 30.7 L Plt Count 175 Sodium 133 L Potassium 4.9 Chloride 99 Carbon Dioxide 28 BUN 28 H Creatinine 4.90 H* D Glucose 82 PG Care Time/CCT Total # of Minutes Spent Total Time Spent with Patient: Total time spent is greater than 50% in coordination of care (as documented) at patient's floor/unit and/or counseling patient: Coding Level of Care Code 11880 Subseq Hosp Care Lvl 3 Diagnoses Hypoxia R09.02 ESRD (end stage renal disease) on dialysis N18.6; Z99.2 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
--- NOTE | 2020-07-01 13:30 | Cardiology Progress Note ---
Date of Service July 01, 2020 Assessment & Plan (1) Acute respiratory failure: 2. Multivessel coronaryartery timing in the future with thanks for care disease 3. ESRD on HD 4. PAD post endovascular intervention, multiple ischemic toes 5. Moderate mitral regurgitation 6. Anemia 7. Pulmonary hypertension Respiratory status improved today post HD. Nephrology plans for additional HD today. Minimal chest fullness overnight but no significant chest pain. Troponin has peaked. Tentatively plan for PCI of circumflex tomorrow. We will coordinate HD with nephrology. In the interim continue DAPT with aspirin, clopidogrel. If recurrent symptoms start systemic IV anticoagulation. Outpatient arterial duplex/toe pressures for PAD. Would consider systemic anticoagulation going forward with recurrent atheroemboli. Admission and Anticipated Discharge Date Admission Date: June 30, 2020 Subjective Feeling well today. Breathing at baseline. Some mild chest fullness overnight. On 5 L this morning. Telemetry reviewedno significant events Review of Systems Review of Systems: All systems reviewed & are unremarkable except as noted in HPI & below Physical Exam Physical Exam: General: Comfortable HEENT: Sclerae anicteric, Mask in place Lungs: Clear to auscultation bilaterally Cardiac: Regular rate and rhythm, 2/6 holosystolic murmur heard at the apex Vascular: 2+ radial. 2+ DP, 1+ DP on right, 1+ DP/PT on left. Great toe on right black with ulceration over medial aspect. Second through fourth with small areas of discoloration on right. Discoloration involving multiple toes on left foot. Abdomen: Soft, nontender Extremities: No edema Neuro: Nonfocal Psych: Alert orient x3, normal affect and mood Results & Data ([facility] [place]) Vital Signs (Past 12 Hours) Vital Signs Temp Pulse Pulse Resp BP BP Pulse Ox 07/01/20 12:59 98.4 F 88 88 130/82 07/01/20 12:13 86 L 07/01/20 11:40 98.6 F 94 H 20 127/76 92 07/01/20 08:15 98.8 F 81 16 126/81 94 07/01/20 07:12 82 07/01/20 04:19 97.5 F L 84 18 113/80 92 PG Care Time/CCT Total # of Minutes Spent Total Time Spent with Patient: Total time spent is greater than 50% in coordination of care (as documented) at patient's floor/unit and/or counseling patient: Coding Level of Care Code 76999 Subseq Hosp Care Lvl 3 Diagnoses Acute respiratory failure J96.00
--- NOTE | 2020-07-01 19:06 | Hospitalist Progress Note ---
Date of Service July 01, 2020 Assessment & Plan (1) Acute respiratory failure with hypoxia: 79yo female with ESRD on HD q M/W/F presenting with acute hypoxic respiratory failure secondary to flash pulmonary edema and cardiac ischemia. Initially was requiring BiPAP 03/02/100% saturating 93%. CXR suggestive of pulmonary edema. Patient presented similarly last month. -D-dimer significantly elevated 12,000-CT angiogram of the chest performed after discussion with nephrology-negative for PE; no evidence of DVT in the lower extremities on examination Procalcitonin is only minimally elevated in the setting of ESRD is not significant Do not suspect pneumonia. She is afebrile and not coughing. Covid-19 test is negative Has now had 2 wlof-ks-krow dialysis treatments removing 2.6 L each day and received 1 dose of IV Lasix in the ER Is weaned down to 5 L oxygen mask -Repeat dialysis again tomorrow -Continue supplemental O2 to keep pulse ox greater than 90% -Appreciate nephrology consultation -Consult cardiology-plan for cardiac catheterization on Sunday for intervention on her 95% mid circumflex lesion Troponin elevated as below (2) Chronic diastolic CHF (congestive heart failure): Acute HFpEF in setting of ESRD and Cardiorenal syndrome requiring emergent daily inpatient dialysis As above, treated with hemodialysis and IV Lasix Echocardiogram with preserved EF last admission (3) Troponin level elevated: In setting of ESRD, known CAD. Patient had cardiac catheterization performed last hospital stay which revealed stable severe CAD, unchanged from prior Troponin 0.5/0.69/1.35-now trending back downward Had chest pain associate with flash pulmonary edema upon admission Discussed with cardiology-likely related to her tight circumflex lesion seen on cardiac catheterization from 3 weeks ago Plan for intervention on Sunday now that pulmonary status is improved -Continue ASA, Plavix, Statin and Metoprolol as BP allows Appreciate cardiology management (4) CAD (coronary artery disease): Patient with known CAD - last catheterization on 06/10/20. Chest pressure upon admission in setting of acute hypoxic respiratory failure -Continue ASA, Plavix, Crestor and Metoprolol as BP allows Plan for stent tomorrow (5) End stage renal disease: Patient on HD q M/W/F -Nephrology consultation appreciated Had hemodialysis upon admission urgently and had it again on 07/01 Plan to return to Sunday schedule Patient describes very poor quality of life since being on dialysis and having chronic severe pain from her ischemic toes. She questions if she wants to continue on with care and is interested in discussion with palliative care for determining goals of care and facilitating discussion with her and family. She does request that her not be contacted by palliative care by phone as he is very emotional and she does not want him to be alone having that conversation. Hopefully we can allow the to come in to visit for a palliative care discussion in person. 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 purple-black discoloration and eschar Discussed with cardiology-she has a lot of atherosclerotic disease in the thoracic aorta and is likely throwing small emboli to the toes Plan to possibly start therapeutic anticoagulation in the future to keep this from happening This causes severe pain Add back on a standing dose of tramadol at bedtime and a as needed dose during the day Continue gabapentin which is renally dosed at 100 mg at bedtime-there may be some small room to go up on this Continue Tylenol as needed Palliative care consulted-appreciate any further management of chronic severe neuropathic/ischemic pain in the toes in the setting of end-stage renal disease (9) GERD (gastroesophageal reflux disease): Chronic -Continue Protonix (10) DVT prophylaxis: Ppx - Heparin Code - DNR/DNI confirmed Dispo continued stay on PCU Palliative care consulted for goals of care discussion in the setting of ESRD and severe CAD Admission and Anticipated Discharge Date Admission Date: June 30, 2020 Subjective Patient feels her breathing is much improved. I weaned her down to 5 L in the room and she stayed at 99%. She is having significant pain in her toes and typically takes tramadol which has not been ordered so far. She reports that she is unsure if she wants to continue on with dialysis or any interventions at times because her quality of life is so poor. She asks if she should keep on with treatment just to please her or children? She asked how long it would take to if she stopped doing dialysis and seemed frustrated that it could take a month as she thinks that would take too long and she may change her mind. She assures me that she is not depressed and she is not suicidal. She is not able to do anything that brings her pleasure anymore because she either has to be at dialysis or has so much pain in her feet that she cannot ever have her legs bent at the knees below her. She says she is willing to go through the cardiac catheterization, and asked about any major complications that could happen. After I went through these with her in detail, she was adamant that if she had a stroke or major heart attack or was further debilitated in any way from a complication, she absolutely would want all hemodialysis to be stopped and would not want to be kept alive. She is interested in speaking with palliative care during this admission. Review of Systems Review of Systems: All systems reviewed & are unremarkable except as noted in HPI & below Physical Exam Constitutional: WD/WN, vitals as above Eyes: + anicteric sclerae Neck: trachea midline, no thyromegaly Respiratory: normal respiratory effort Auscultation: + crackles (Bibasilar, but improved); no rhonchi and no wheezes Cardiovascular: RRR, no murmur, no edema Chest (Breasts): Chest: + vascular access device or port (Right side tunneled dialysis catheter) Gastrointestinal (Abdomen): normal bowel sounds, soft, nontender, no hepatosplenomegaly Musculoskeletal: Extremities: + extremities abnormal to inspection (Right great, third, and fourth toes with purple-black discoloration) Skin: + wound (Left toes with black eschar and purple discoloration) Neurologic: moves all extremities and awake; no focal motor deficits Psychiatric: Orientation: alert and oriented x 3 Eye Contact: good eye contact Speech: normal rate/rhythm/volume of speech Affect: + depressed affect Thought Process: goal directed thought process and linear/logical thought process Suicidal Thoughts: denies suicidal thoughts Insight: good insight Judgement: good judgement Lymphatic: no lymphedema Results & Data Results & Data ([facility]) Vital Signs (Past 12 Hours) Vital Signs Temp Pulse Pulse Resp BP BP Pulse Ox 07/01/20 18:02 100 H 07/01/20 17:00 36.9 C 73 73 133/103 H 133/103 H 07/01/20 16:40 63 94/60 L 07/01/20 16:20 93 H 126/93 07/01/20 16:00 103 H 101/72 07/01/20 15:40 99 H 118/86 07/01/20 15:20 99 H 104/84 07/01/20 15:00 94 H 132/87 07/01/20 14:40 95 H 125/82 07/01/20 14:20 92 H 141/84 H 07/01/20 14:00 91 H 130/85 07/01/20 13:40 90 126/80 07/01/20 13:20 88 132/80 07/01/20 12:59 36.9 C 88 88 130/82 07/01/20 12:13 86 L 07/01/20 11:40 37 C 94 H 20 127/76 92 07/01/20 08:15 37.1 C 81 16 126/81 94 07/01/20 07:12 82 Laboratory Results 07/01/20 07/01/20 Range/Units 06:13 06:13 WBC 7.55 (4.8-10.8) K/uL RBC 2.98 L (4.2-5.4) M/uL Hgb 9.7 L (12.0-16.0) g/dL Hct 30.7 L (37-47) % MCV 103.0 H (80-100) fL MCH 32.6 (25-34) pg MCHC 31.6 L (32-36) g/dL RDW Std Deviation 62.6 H (36.4-46.3) fL RDW Coeff of Max 16.5 H (11.5-14.5) % Plt Count 175 (130-400) K/uL MPV 10.2 (7.4-10.4) fL Immature Gran % (Auto) 0.3 % Neut % (Auto) 64.7 % Lymph % (Auto) 19.2 % Leon % (Auto) 11.0 % Eos % (Auto) 4.5 % Baso % (Auto) 0.3 % Neut # (Auto) 4.89 (1.4-6.5) K/uL Lymph # (Auto) 1.45 (1.2-3.4) K/uL Leon # (Auto) 0.83 H (0.11-0.59) K/uL Eos # (Auto) 0.34 (0-0.5) K/uL Baso # (Auto) 0.02 (0-0.2) K/uL Immature Gran # (Auto) 0.02 (0.00-0.02) K/uL Sodium 133 L (136-145) mmol/L Potassium 4.9 (3.5-5.1) mmol/L Chloride 99 (98-107) mmol/L Carbon Dioxide 28 (21-32) mmol/L Anion Gap 6.0 (3-11) BUN 28 H (7-18) mg/dl Creatinine 4.90 H* D (0.6-1.2) mg/dl Est Cr Clr Drug Dosing 6.5 ml/min Est GFR ( Amer) 9.0 Est GFR (Non-Af Amer) 7.7 BUN/Creatinine Ratio 5.6 L (10-20) Glucose 82 (70-99) mg/dl Calcium 9.2 (8.5-10.1) mg/dl Troponin I 0.923 H* (0-0.045) ng/ml Diagnostic Findings Chest x-ray image personally reviewed by me and agree with the following report: Impression: Cardiomegaly with mildly improved pulmonary edema and layering pleural effusions. There are persistent bibasilar consolidative opacities with progressive consolidation within the right perihilar distribution which may reflect a combination of atelectasis and pulmonary edema versus superimposed pneumonia. PG Care Time/CCT Total # of Minutes Spent Total Time Spent with Patient: Total time spent is greater than 50% in coordination of care (as documented) at patient's floor/unit and/or counseling patient: Coding Level of Care Code 39223 Subseq Hosp Care Lvl 3 Diagnoses Acute respiratory failure with hypoxia J96.01 Chronic diastolic CHF (congestive heart failure) I50.32 Troponin level elevated R77.8 CAD (coronary artery disease) I25.10 Associated angina: without angina Coronary Disease-Associated Artery/Lesion type: [place] artery [place] vs. transplanted heart: [place] heart End stage renal disease N18.6 Dyslipidemia E78.5 Hypertension I15.0 Hypertension type: renovascular hypertension Ischemic necrosis of toe I96 GERD (gastroesophageal reflux disease) K21.9 Esophagitis presence: esophagitis presence not specified DVT prophylaxis Z29.9 (1) CAD (coronary artery disease) Associated angina: without angina Coronary Disease-Associated Artery/Lesion type: [place] artery [place] vs. transplanted heart: [place] heart Qualified Code(s): I25.10 - Atherosclerotic heart disease of [place] coronary artery without angina pectoris (2) GERD (gastroesophageal reflux disease) Esophagitis presence: esophagitis presence not specified Qualified Code(s): K21.9 - Gastro-esophageal reflux disease without esophagitis (3) Hypertension Hypertension type: renovascular hypertension Qualified Code(s): I15.0 - Renovascular hypertension
[2020-07-01] MEDS: ROSUVASTATIN CALCIUM 10 MG TAB PO SCH (21:51)
[2020-07-01] MEDS: METOPROLOL SUCC 50MG EXT REL TAB PO SCH (21:51)
[2020-07-01] MEDS: GABAPENTIN 100 MG CAP PO SCH (21:51)
[2020-07-01] MEDS: ASPIRIN 81 MG ECTAB PO SCH (21:51)
[2020-07-01] MEDS: traMADol HCL 50 MG TABLET PO PRN (21:52)
[2020-07-02] MEDS: HEPARIN SOD 5,000 UNIT/0.5 ML VIAL SQ SCH ×3 (05:38→21:42)
[2020-07-02] MEDS: ACETAMINOPHEN 325 MG TAB PO PRN (05:38)
[2020-07-02 06:27] LABS: Basophils # (auto) 0.02 K/uL (0-0.2); Basophils % (auto) 0.3 %; Eosinophils # (auto) 0.28 K/uL (0-0.5); Eosinophils % (auto) 3.9 %; Hematocrit (blood only) 36.6 % (37-47); Hemoglobin 11.4 g/dL (12.0-16.0); Immature Granulocytes # (auto) 0.02 K/uL (0.00-0.02); Immature Granulocytes % (auto) 0.3 %; Lymphocytes # (auto) 2.42 K/uL (1.2-3.4); Lymphocytes % (auto) 33.4 %; Mean Corpuscular Hemoglobin 31.7 pg (25-34); Mean Corpuscular Hgb Conc 31.1 g/dL (32-36); Mean Corpuscular Volume 101.7 fL (80-100); Mean Platelet Volume 10.3 fL (7.4-10.4); Monocytes % (auto) 9.7 %; Neutrophils # (auto) 3.81 K/uL (1.4-6.5); Neutrophils % (auto) 52.4 %; Platelet Count 242 K/uL (130-400); RDW Coefficient of Variation 16.3 % (11.5-14.5); RDW Standard Deviation 60.7 fL (36.4-46.3); White Blood Count 7.25 K/uL (4.8-10.8)
[2020-07-02 06:56] LABS: BUN Creatinine Ratio 5.2 (10-20); Calcium 9.5 mg/dl (8.5-10.1); Creatinine Clr Calc Pharmacy 7.8 ml/min; Est GFR (African American) 11.6; Magnesium 2.3 mg/dl (1.8-2.4); Potassium 4.3 mmol/L (3.5-5.1)
--- NOTE | 2020-07-02 07:39 | XRay Report ---
XR chest 1V portable HISTORY: 79 years-old Female CHF acute shortness of breath with congestive heart failure COMPARISON: Chest radiograph 07/01/2020, CTA chest 06/30/2020 TECHNIQUE: Portable AP view of the chest FINDINGS: Cardiomegaly. Right IJ dual-lumen hemodialysis catheter. Patient is slightly rotated. No pneumothorax . Pulmonary vascular congestion with moderately improved aeration of the lungs. No large pleural effu richard or new airspace consolidation. Resolution of the previously described right perihilar opacity an d bibasilar densities. Degenerative changes of the shoulders and spine. IMPRESSION: Cardiomegaly with pulmonary vascular congestion and resolution of the previously describe d pulmonary edema with bibasilar opacities. ACT 112: Negative or not required by law. The above report was generated using voice recognition software. It may contain grammatical, syntax o r spelling errors. Electronically signed by: Tai Browning M.D. 07/02/2020 7:38 AM
[2020-07-02] MEDS: CLOPIDOGREL BISULFATE 75 MG TAB PO SCH (08:17)
[2020-07-02] MEDS ORDERED: SODIUM CHLORIDE 0.9% 1000ML 1,000 ML IV PRN (09:24)
--- NOTE | 2020-07-02 11:03 | Nephrology Progress Note ---
Date of Service July 02, 2020 Assessment & Plan (1) Hypoxia: * Possibly related to intermittent myocardial ischemia * Resolved following UF/HD * CXR shows improvement in pulmonary vascular congestion * CTA negative for PE * 06/30 COVID negative * No clinical signs/symptoms of active infection (2) ESRD (end stage renal disease) on dialysis: * Will provide HD today following cardiac cath: 2 hrs, attempt 2L UF. Orders placed in EMR and HD RN notified * Will use IJ THC as vascular access. 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 Arnett was seen & examined in her hospital room this morning. She was dialyzed yesterday for 2.6 L UF. Mrs. Arnett is now breathing comfortably on RN. She is awaiting cardiac catheterization later this morning. Review of Systems Constitutional: no fever Eyes: no problem reported Ear, Nose, Mouth, Throat: no problem reported Respiratory: no dyspnea Cardiovascular: no chest pain, no palpitations and no edema Gastrointestinal: no abdominal pain, no vomiting and no diarrhea/loose stools Integumentary: no rash Neurologic: no falls and no confusion Physical Exam Constitutional: + frail appearing; not in distress Eyes: PERRL, conjunctivae normal, anicteric sclerae ENMT: external ear and nose normal, oropharynx normal Neck: trachea midline, no thyromegaly Respiratory: normal respiratory effort, lungs clear to auscultation Cardiovascular: Rate/Rhythm: regular rate and regular rhythm Gastrointestinal (Abdomen): normal bowel sounds, soft, nontender, no hepatosplenomegaly Musculoskeletal: Extremities: no cyanosis Skin: no rashes, warm and dry Neurologic: awake; not confused Results & Data ([facility]) Vital Signs (Past 12 Hours) Vital Signs Temp Pulse Pulse Pulse Resp BP Pulse Ox 07/02/20 08:12 36.5 C 77 18 124/77 99 07/02/20 07:12 76 07/02/20 03:42 37 C 83 14 143/87 H 100 07/02/20 00:00 79 07/01/20 23:16 37 C 65 18 120/72 96 Laboratory Tests 07/02/20 07/02/20 05:52 05:52 WBC 7.25 Hgb 11.4 L Hct 36.6 L Plt Count 242 Sodium 135 L Potassium 4.3 Chloride 102 Carbon Dioxide 24 BUN 21 H Creatinine 3.97 H D Glucose 101 H PG Care Time/CCT Total # of Minutes Spent Total Time Spent with Patient: Total time spent is greater than 50% in coordination of care (as documented) at patient's floor/unit and/or counseling patient: Coding Level of Care Code 73661 Subseq Hosp Care Lvl 3 Diagnoses Hypoxia R09.02 ESRD (end stage renal disease) on dialysis N18.6; Z99.2 Arteriosclerotic cardiovascular disease (ASCVD) I25.10 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
--- NOTE | 2020-07-02 12:15 | Palliative Care Consultation ---
Date of Consultation July 02, 2020 Assessment & Plan (1) Ischemic necrosis of toe: Neuropathic pain. We discussed use of adjuvants such as gabapentin for management of neuropathic pain. Unfortunately, dosing is limited with her renal failure. Would continue gabapentin at current dose. She has had some problems with constipation on tramadol. Given constant nature of pain, we discussed possibility of long acting opioid, particularly fentanyl, which would be safer from a renal standpoint and is structurally different from hydrocodone which caused an allergic reaction for her. She is agreeable to trying this. She would also like to follow with palliative care as an outpatient for pain management and assistance with goals of care. We will discuss this further at her upcoming outpatient appointment. (2) Palliative care encounter: Adriana had expressed some concerns about whether to proceed with cardiac cath and what she wanted for her healthcare. She was able to speak with her and son last night who are both supportive of whatever she decides. She tells me that dialysis days are hard for her but that the other four days a week are pretty good days. She would like to be able to do more things with her and feels that pain is inhibiting her ability to do this. In general she feels that she has good quality of life. She is clear that she would not want CPR or intubation. She would not want artificial feeding and if her quality of life were to decline, she is not sure about whether she would continue dialysis. She worries about being a burden to her family and she worries about how she would manage if something happened to her . She now feels comfortable with proceeding with cardiac cath today, but would like to continue further discussion about her goals as an outpatient. Palliative care w ill contact her to set up an outpatient televisit after discharge. (3) Chronic diastolic CHF (congestive heart failure): (4) Pulmonary edema: Chronicity: acute Qualified Code(s): J81.0 - Acute pulmonary edema (5) CAD (coronary artery disease): Coronary Disease-Associated Artery/Lesion type: [place] artery [place] vs. transplanted heart: [place] heart Associated angina: without angina Qualified Code(s): I25.10 - Atherosclerotic heart disease of [place] coronary artery without angina pectoris (6) End stage renal disease: (7) H/O colectomy: (8) PAD (peripheral artery disease): History of Present Illness Reason for Consultation: pain management, goals of care Requesting Physician: Dr. Flores Attending Physician: Flores Flores MD History of Present Illness 79 yo lady with ESRD who has been on hemodialysis since December by her report. She also has CAD with 95% occlusion of circumflex artery. She was admitted with acute respiratory failure and flash pulmonary edema. She has improved after urgent dialysis and is scheduled for her routine dialysis today. She will also be going to the mobile home laborer today. She has had ongoing problems with ischemic toes with PAD as well as embolic ischemia. She has severe pain with this which limits her ability to function and do the things that she enjoys. She is not able to sit with her feet down for any significant period of time. She is uncomfortable riding in the car and not able to go driving with her as she'd like. Her 85 yo has been her caregiver and helps her with pretty much all ADLs except bathing. She has been on gabapentin 100mg daily and prn tramadol as well as tylenol. She reports that pain is constant and "nagging". It is 8/10 at worst and goes down as low as 3/10 at times. Allergies Allergy/AdvReac Type Severity Reaction Status Date / Time hydrocodone Allergy Intermediate RASH, HIVES Verified 06/24/20 10:07 Sulfa (Sulfonamide AdvReac Intermediate "SULFA Verified 06/24/20 10:07 Antibiotics) DRUGS": N/V spironolactone AdvReac Mild GI Verified 06/24/20 10:07 SYMPTOMS,NAUSEA AND VOMITING Aldactazide AdvReac Unknown GI Unverified 07/24/17 10:20 SYMPTOMS,NAUSEA AND VOMITING hydrochlorothiazide AdvReac Unknown GI Verified 06/24/20 10:07 SYMPTOMS,NAUSEA AND VOMITING Home Medications Medication Instructions Recorded Confirmed Type cholecalciferol (vitamin D3) 50 2,000 units PO QAM 10/16/18 06/30/20 History mcg (2,000 unit) capsule coenzyme Q10 200 mg capsule 200 mg PO QAM cap 10/31/18 06/30/20 History exemestane 25 mg tablet 25 mg PO DAILY@1200 tab 10/31/18 06/30/20 History aspirin [Enteric Coated Aspirin] 81 mg PO HS 01/23/19 06/30/20 History clopidogrel 75 mg tablet 75 mg PO QAM #90 tab 12/29/19 06/30/20 Rx metoprolol succinate 50 mg 50 mg PO HS #90 tab 01/16/20 06/30/20 Rx tablet,extended release 24 hr amlodipine 10 mg PO QAM 02/27/20 06/30/20 History gabapentin 100 mg capsule 100 mg PO HS cap 04/01/20 06/30/20 History rosuvastatin 10 mg tablet 10 mg PO HS #90 tab 04/08/20 06/30/20 Rx lansoprazole 30 mg capsule,delayed 30 mg PO DAILY #30 cap 06/03/20 06/24/20 Rx release ondansetron 4 mg disintegrating 4 mg PO Q6H PRN #90 tab 06/03/20 06/30/20 Rx tablet prednisone 10 mg PO DAILY #20 tab 06/12/20 06/24/20 Rx buspirone 5 mg tablet 5 mg PO DAILY #20 tab 06/17/20 06/24/20 Rx nystatin 100,000 unit/mL oral 500,000 unit BUCCAL QID 10 Days 06/17/20 06/24/20 Rx suspension #200 ml isosorbide mononitrate 30 mg PO DAILY@1200 06/30/20 06/30/20 History tramadol 50 mg PO Q8H PRN 06/30/20 06/30/20 History Patient History Medical History AAA (abdominal aortic aneurysm) PCP monitoring. "Mild fusiform aneurysmal dilatation of the distal thoracic and abdominal aorta." per 02/27/[address] CAD (coronary artery disease) Severe multivessel coronary artery diseaseoccluded distal right, occluded distal circumflex, 90% focal stenosis in mid circumflex into OM1 - follows with Dr. Pfeiffer Chronic diastolic CHF (congestive heart failure) Degenerative joint disease, multiple joints on both sides of body Dyslipidemia ESRD (end stage renal disease) on dialysis started dialysis 12/2019 - [facility] - follows with Dr. Kaur Fibromyalgia GERD (gastroesophageal reflux disease) History of breast cancer Lt lumpectomy/chemo/radiation 2016 History of myocardial infarction silent -- informed in 2018 of evidence of previous AR History of skin cancer removed History of stent insertion of renal artery Lt History of ulcerative colitis Hypertension Ischemic necrosis of toe Mitral regurgitation Osteoarthritis PAD (peripheral artery disease) Peripheral neuropathy Right renal artery stenosis h/o failed attempt to stent Rt renal artery per pt - atheroemboli to her feet and kidneys Spinal stenosis Surgical History History of anesthesia reaction "easy to put out and hard to wake up" History of breast biopsy History of cardiac catheterization 2017 [place] -abn stress test - no stents History of colectomy No colostomy, anastamosis of small bowel. History of colonoscopy History of esophagogastroduodenoscopy (EGD) History of lumpectomy of left breast History of vascular access device temporary dialysis catheter to Rt chest History of vascular surgery 03/22/2020 DR Pfeiffer [facility] stents to BLLE Family History Mother Colon cancer Cardiac disorder Hypertension Father Colon cancer Cardiac disorder Cancer Family/Other Coronary arteriosclerosis Other No family history of adverse response to anesthesia Social History Smoking Status: Never smoker Second Hand Exposure: No; Hx Alcohol Use: No Hx Substance Use: No Preferred Language: Kinyarwanda Communication Ability: Effective Park Interpretive Specialist Required: No Beliefs That Will Affect Care: None marital status: Current Living Situation: Spouse current occupational status: retired How many Children do You have: 1 How many Children do You have Comment: not local. able to assist with care as needed. Feels Safe at Home: Yes Diet Comment: renal diet during the past year weight has: decreased > 10 lbs Assistive Devices: Oxygen - Continuous Review of Systems Constitutional: [place] Symptom Assessment Scale Pain 3/3 Dyspnea 1/3 Nausea 0/3 Anorexia 2/3 Anxiety 1/3 Fatigue 2/3 Drowsiness 0/3 Palliative Performance score 50% Physical Exam Constitutional: + thin; no acute distress Respiratory: normal respiratory effort; no labored breathing Cardiovascular: Rate/Rhythm: regular rate and regular rhythm Extremities: no edema Gastrointestinal (Abdomen): Inspection/Auscultation: abdomen not distended Percussion/Palpation: abdomen nontender Musculoskeletal: Extremities: + muscle atrophy Neurologic: no focal motor deficits and not confused Psychiatric: Affect: euthymic affect Results & Data ([facility]) Vital Signs (Past 12 Hours) Vital Signs Temp Pulse Pulse Resp BP Pulse Ox 07/02/20 11:52 98.8 F 86 18 121/78 96 07/02/20 08:12 97.7 F 77 18 124/77 99 07/02/20 07:12 76 07/02/20 03:42 98.6 F 83 14 143/87 H 100 PG Care Time/CCT Total # of Minutes Spent Total Time Spent with Patient: Total time spent is greater than 50% in coordination of care (as documented) at patient's floor/unit and/or counseling patient: Total time spent 70 minutes with more than 50% of time spent on discussing goals of care, code status, symptom management Coding Level of Care Code 11721 Inpt Consult Level 4 Diagnoses Ischemic necrosis of toe I96 Palliative care encounter Z51.5 Chronic diastolic CHF (congestive heart failure) I50.32 Pulmonary edema J81.0 Chronicity: acute CAD (coronary artery disease) I25.10 Coronary Disease-Associated Artery/Lesion type: [place] artery [place] vs. transplanted heart: [place] heart Associated angina: without angina End stage renal disease N18.6 H/O colectomy Z90.49 PAD (peripheral artery disease) I73.9 Time Spent (min) 70
--- NOTE | 2020-07-02 12:25 | Hospitalist Progress Note ---
Date of Service July 02, 2020 Assessment & Plan (1) Acute respiratory failure with hypoxia: 79yo female with ESRD on HD q M/W/F presenting with acute hypoxic respiratory failure secondary to flash pulmonary edema and cardiac ischemia. Initially was requiring BiPAP //100% saturating 93%. CXR suggestive of pulmonary edema. Patient presented similarly last month. -D-dimer significantly elevated 12,000-CT angiogram of the chest performed after discussion with nephrology-negative for PE; no evidence of DVT in the lower extremities on examination Procalcitonin is only minimally elevated in the setting of ESRD is not significant Do not suspect pneumonia. She is afebrile and not coughing. Covid-19 test is negative Has now had 2 wdav-cu-adla dialysis treatments removing 2.6 L each day and received 1 dose of IV Lasix in the ER Is now weaned off O2 on 07/02 -Repeat dialysis again today for shortened session -Appreciate nephrology consultation -Consult cardiology-plan for cardiac catheterization today for intervention on her 95% mid circumflex lesion Troponin elevated as below (2) Chronic diastolic CHF (congestive heart failure): Acute HFpEF in setting of ESRD and Cardiorenal syndrome requiring emergent daily inpatient dialysis As above, treated with hemodialysis and IV Lasix Echocardiogram with preserved EF last admission (3) Troponin level elevated: In setting of ESRD, known CAD. Patient had cardiac catheterization performed last hospital stay which revealed stable severe CAD, unchanged from prior Troponin 0.5/0.69/1.35-now trending back downward Had chest pain associate with flash pulmonary edema upon admission Discussed with cardiology-likely related to her tight circumflex lesion seen on cardiac catheterization from 3 weeks ago Plan for intervention on Sunday now that pulmonary status is improved -Continue ASA, Plavix, Statin, Imdur and Metoprolol as BP allows Appreciate cardiology management (4) CAD (coronary artery disease): Patient with known CAD - last catheterization on 06/10/20. Chest pressure upon admission in setting of acute hypoxic respiratory failure -Continue ASA, Plavix, Crestor, Imdur and Metoprolol as BP allows Plan for stent today (5) End stage renal disease: Patient on HD q M/W/F -Nephrology consultation appreciated Had hemodialysis upon admission urgently and had it again on 07/01 Plan to return to Sunday schedule Patient describes very poor quality of life since being on dialysis and having chronic severe pain from her ischemic toes. She questions if she wants to continue on with care and is interested in discussion with palliative care for determining goals of care and facilitating discussion with her and family. She does request that her not be contacted by palliative care by phone as he is very emotional and she does not want him to be alone having that conversation. 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-black discoloration and eschar Discussed with cardiology-she has a lot of atherosclerotic disease in the thoracic aorta and is likely throwing small emboli to the toes Plan to possibly start therapeutic anticoagulation in the future to keep this from happening-consider apixaban 2.5 bid vs coumadin This causes severe pain -continue standing dose of tramadol at bedtime and a as needed dose during the day Continue gabapentin which is renally dosed at 100 mg at bedtime-there may be some small room to go up on this-could go up to bid Continue Tylenol as needed Palliative care consulted-appreciate any further management of chronic severe neuropathic/ischemic pain in the toes in the setting of end-stage renal disease- considering Fenatanyl patch as outpt (9) GERD (gastroesophageal reflux disease): Chronic -Continue Protonix (10) DVT prophylaxis: Ppx - Heparin Code - DNR/DNI confirmed Dispo continued stay on PCU, possibly dc to home tomorrow if stable post-cath Palliative care consulted for goals of care discussion in the setting of ESRD and severe CAD Admission and Anticipated Discharge Date Admission Date: June 30, 2020 Subjective Pt feelin gbetter today. No SOB and is weaned off O2. No chest pain or abd pain. Pain in toes is manageable today-took tramadol last night and tylenol this AM. Is awaiting cardiac cath today. Discussed care with Nephrology Tele with NSR rates 70s, PACs Review of Systems Review of Systems: All systems reviewed & are unremarkable except as noted in HPI & below Physical Exam Constitutional: WD/WN, vitals as above Eyes: + anicteric sclerae Neck: trachea midline, no thyromegaly Respiratory: normal respiratory effort, lungs clear to auscultation Cardiovascular: RRR, no murmur, no edema Chest (Breasts): Chest: + vascular access device or port (Right side tunneled dialysis catheter) Gastrointestinal (Abdomen): normal bowel sounds, soft, nontender, no hepatosplenomegaly Musculoskeletal: Extremities: + extremities abnormal to inspection (Right great, third, and fourth toes with purple-black discoloration) Skin: no rashes, warm and dry + wound (Left toes with black eschar and purple discoloration) Neurologic: moves all extremities and awake; no focal motor deficits Psychiatric: A+Ox3, euthymic affect Eye Contact: good eye contact Speech: normal rate/rhythm/volume of speech Thought Process: goal directed thought process and linear/logical thought process Insight: good insight Judgement: good judgement Lymphatic: no lymphedema Results & Data Results & Data ([facility]) Vital Signs (Past 12 Hours) Vital Signs Temp Pulse Pulse Resp BP Pulse Ox 07/02/20 11:52 37.1 C 86 18 121/78 96 07/02/20 08:12 36.5 C 77 18 124/77 99 07/02/20 07:12 76 07/02/20 03:42 37 C 83 14 143/87 H 100 Laboratory Results 07/02/20 07/02/20 Range/Units 05:52 05:52 WBC 7.25 (4.8-10.8) K/uL RBC 3.60 L (4.2-5.4) M/uL Hgb 11.4 L (12.0-16.0) g/dL Hct 36.6 L (37-47) % MCV 101.7 H (80-100) fL MCH 31.7 (25-34) pg MCHC 31.1 L (32-36) g/dL RDW Std Deviation 60.7 H (36.4-46.3) fL RDW Coeff of Max 16.3 H (11.5-14.5) % Plt Count 242 (130-400) K/uL MPV 10.3 (7.4-10.4) fL Immature Gran % (Auto) 0.3 % Neut % (Auto) 52.4 % Lymph % (Auto) 33.4 % Luce % (Auto) 9.7 % Eos % (Auto) 3.9 % Baso % (Auto) 0.3 % Neut # (Auto) 3.81 (1.4-6.5) K/uL Lymph # (Auto) 2.42 (1.2-3.4) K/uL Luce # (Auto) 0.70 H (0.11-0.59) K/uL Eos # (Auto) 0.28 (0-0.5) K/uL Baso # (Auto) 0.02 (0-0.2) K/uL Immature Gran # (Auto) 0.02 (0.00-0.02) K/uL Sodium 135 L (136-145) mmol/L Potassium 4.3 (3.5-5.1) mmol/L Chloride 102 (98-107) mmol/L Carbon Dioxide 24 (21-32) mmol/L Anion Gap 9.0 (3-11) BUN 21 H (7-18) mg/dl Creatinine 3.97 H D (0.6-1.2) mg/dl Est Cr Clr Drug Dosing 7.8 ml/min Est GFR ( Amer) 11.6 Est GFR (Non-Af Amer) 10.0 BUN/Creatinine Ratio 5.2 L (10-20) Glucose 101 H (70-99) mg/dl Calcium 9.5 (8.5-10.1) mg/dl Magnesium 2.3 (1.8-2.4) mg/dl Diagnostic Findings CXR image personally reviewed by me and agree with the following: XR chest 1V portable HISTORY: 79 years-old Female CHF acute shortness of breath with congestive heart failure COMPARISON: Chest radiograph 07/01/2020, CTA chest 06/30/2020 TECHNIQUE: Portable AP view of the chest FINDINGS: Cardiomegaly. Right IJ dual-lumen hemodialysis catheter. Patient is slightly rotated. No pneumothorax. Pulmonary vascular congestion with moderately improved aeration of the lungs. No large pleural effusion or new airspace consolidation. Resolution of the previously described right perihilar opacity and bibasilar densities. Degenerative changes of the shoulders and spine. IMPRESSION: Cardiomegaly with pulmonary vascular congestion and resolution of the previously described pulmonary edema with bibasilar opacities. PG Care Time/CCT Total # of Minutes Spent Total Time Spent with Patient: Total time spent is greater than 50% in coordination of care (as documented) at patient's floor/unit and/or counseling patient: Coding Level of Care Code 50583 Subseq Hosp Care Lvl 3 Diagnoses Acute respiratory failure with hypoxia J96.01 Chronic diastolic CHF (congestive heart failure) I50.32 Troponin level elevated R77.8 CAD (coronary artery disease) I25.10 Associated angina: without angina Coronary Disease-Associated Artery/Lesion type: [place] artery [place] vs. 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 transplanted heart: [place] heart Qualified Code(s): I25.10 - Atherosclerotic heart disease of [place] coronary artery without angina pectoris (2) GERD (gastroesophageal reflux disease) Esophagitis presence: esophagitis presence not specified Qualified Code(s): K21.9 - Gastro-esophageal reflux disease without esophagitis (3) Hypertension Hypertension type: renovascular hypertension Qualified Code(s): I15.0 - Renovascular hypertension
[2020-07-02] MEDS ORDERED: ISOSORBIDE MONO EXTENDED REL 30 MG TABCR PO SCH (13:00)
--- NOTE | 2020-07-02 14:58 | Pre Anesthesia Assessment ---
Date of Service July 02, 2020 Pre Sedation Assessment Vital Signs Temp Pulse Pulse Pulse Resp BP BP 07/02/20 11:52 98.8 F 86 18 121/78 07/02/20 08:12 97.7 F 77 18 124/77 07/02/20 07:12 76 07/02/20 03:42 98.6 F 83 14 143/87 H 07/02/20 00:00 79 07/01/20 23:16 98.6 F 65 18 120/72 07/01/20 20:00 97.3 F L 84 111/72 07/01/20 18:02 100 H 07/01/20 17:00 98.4 F 73 73 133/103 H 133/103 H 07/01/20 16:40 63 94/60 L 07/01/20 16:20 93 H 126/93 07/01/20 16:00 103 H 101/72 07/01/20 15:40 99 H 118/86 07/01/20 15:20 99 H 104/84 07/01/20 15:00 94 H 132/87 Pulse Ox 07/02/20 11:52 96 07/02/20 08:12 99 07/02/20 07:12 07/02/20 03:42 100 07/02/20 00:00 07/01/20 23:16 96 07/01/20 20:00 91 07/01/20 18:02 07/01/20 17:00 07/01/20 16:40 07/01/20 16:20 07/01/20 16:00 07/01/20 15:40 07/01/20 15:20 07/01/20 15:00 Cardiovascular RRR, no murmur, no edema Respiratory normal respiratory effort, lungs clear to auscultation Pre-Sedation Airway Assessment Smoking Status: Never smoker Hx Sleep Apnea: No Hx Difficult Intubation: No Short, Thick Neck: No Thyromental Distance: > or= 3.5 Finger Breadths Oral Cavity: + WNL Mallampati Class: III ASA: ASA3 Procedure Planning Contraindications for Sedation: none Current Medications Reviewed: Yes Notes The planned sedation has been discussed with the patient. Informed Consent was obtained. I have identified the patient, determined the appropriateness of sedation and have assessed the patient immediately prior to the procedure. All medicine(s) and interventions are by my order.
[2020-07-02] MEDS ORDERED: niCARdipine HCL INJ 2.5 MG/ML 10 ML AMP ONE (15:00)
[2020-07-02] MEDS ORDERED: HEPARIN (PORCINE) 1000 UNIT/ML 10 ML (CATH LAB USE ONLY) ONE ×2 (15:00→18:17)
[2020-07-02] MEDS ORDERED: NITROGLYCERIN/D5W 100MCG/ML 20ML SYR ONE (15:00)
[2020-07-02] MEDS ORDERED: MIDAZOLAM HCL 1 MG/ML 2ML VIAL ONE ×2 (15:00→16:57)
[2020-07-02] MEDS ORDERED: fentaNYL citrate 100 MCG/2 ML VIAL ONE (15:00)
[2020-07-02] MEDS ORDERED: CLOPIDOGREL BISULFATE 300 MG TAB ONE ×2 (15:56→18:11)
--- NOTE | 2020-07-02 16:30 | Post Operative Brief Note ---
Cardiology Brief Post Op Date of Surgery July 02, 2020 Pre & Post Diagnosis Operation Date: 07/02/20 12:30 <No data on this case meets the specified criteria> Procedure -- [employer] [facility] Oscar Pfeiffer MD [employer] Estimated Blood Loss 15 Findings See Below 95% mid circumflex PCI to mid circumflex with 2.75 x 12 Xience Fluids -- Specimens Specimen Description: -- Anesthesia Type RN Sedation Complications none Disposition Accompanied Patient To Recovery: No Disposition: PCU Overlapping Procedure I was present for: the critical portions of procedure. I was immediately available: during the entire case. Back up surgeon: was not required during procedure.
[2020-07-02] MEDS: traMADol HCL 50 MG TABLET PO PRN (21:40)
[2020-07-02] MEDS: ROSUVASTATIN CALCIUM 10 MG TAB PO SCH (21:42)
[2020-07-02] MEDS: GABAPENTIN 100 MG CAP PO SCH (21:43)
[2020-07-02] MEDS: ASPIRIN 81 MG ECTAB PO SCH (21:43)
[2020-07-02] MEDS: METOPROLOL SUCC 50MG EXT REL TAB PO SCH (22:00)
[2020-07-03] MEDS: ACETAMINOPHEN 325 MG TAB PO PRN ×4 (00:55→13:33)
--- NOTE | 2020-07-03 01:37 | Cardiac Catheterization ---
[facility] Data: Drawer Fitter Cardiac Status Clinical evaluation leading to the procedure CAD Presenation: Non STEMI Anginal Classification: No Symptoms Heart Failure: NYHA Class: CCS IV Cardiogenic Shock within 24 Hours: No Cardiac Arrest within 24 Hours: No Imaging Studies Past 6 Months: Yes Stress Studies Past 6 Months: No Diagnostic Physicians Name: Oscar Pfeiffer MD Status: Elective Closure Device Percutaneous Entry Location: Radial Closure Device: Radial Band Recommendations: PCI without planned CABG PCI Indication: PCI for high risk Non-KELLIE Lesion Segment Name: mid circumflex Culprit Artery: Yes Stenosis Prior to Rx (%): 95 Chronic Total Occlusion: No IVUS: No FFR: No Pre-Procedure PRICE Flow: 3 Previously Treated Lesion: No Lesion Complexity: High/C Lesion Length (mm): 10 Thrombus Present: No Bifurcation Lesion: No Guidewire Across Lesion: Stenosis Post-Procedure (%): 0 Post-Procedure PRICE Flow: 3 Devices(s) Deployed: Yes Yes Intraprocedure Events Significant Disection: No Perforation: No Cardiac Cath Procedure Full Procedure Date July 03, 2020 Pre-Procedure Diagnosis Pre-Procedure Diagnosis: CAD and CHF AUC Score AUC Score: 7 Post-Procedure Diagnosis Post-Procedure Diagnosis: Severe CAD Procedure(s) Performed Procedure(s) Performed: Coronary Angiography and Drug Eluting Stent Drum Filler Oscar Pfeiffer MD Truck Body Builder Apprentice(s) Justus Estimated Blood Loss Estimated Blood Loss: 15 Medication(s) Medication(s): Clopidogrel, Fentanyl, Heparin, Lidocaine 1%, Nicardipine, Nitroglycerin and Versed Summary of Findings Indication: Known severe circumflex disease with recurrent heart failure and concern for ischemic MR Access: 6 Fr left radial artery Catheters: EBU 3.5 guide Findings: LM -normal caliber, no significant disease LAD -medium caliber vessel, 30 to 40% proximal, mid segment luminal irregularities, distal vessel tortuous as wraps around apex. Circumflex -large caliber vessel, 95% mid segment stenosis followed by ectatic proximal large OM1 with 50% stenosis after aneurysm 1. Distal circumflex with chronic total occlusion which fills via left to left collaterals. RCA -distal RCA known to be chronically occluded. Has ejoe-eo-ythdy collaterals -- PCI -- Antithrombotic therapy: Heparin, clopidogrel Procedure: Left main cannulated with EBU 3.5 guide Hotel Services Supervisor 50 wire passed across lesion into distal vessel Mid circumflex lesion predilated with 2.5 compliant balloon Dilated lesion stented with 2.75 x 12 mm Xience drug-eluting ending at the proximal aspect of aneurysmal segment in OM1 Stent post-dilated with 3.0 noncompliant balloon IC vasodilators administered for spasm Post procedure PRICE 3 flow, stent well expanded with minimal residual stenosis and no apparent cardiac complications. Arterial Closure: TR band Summary: 1. Successful PCI of mid circumflex into OM 2 with single drug-eluting stent (2.75 x 12 mm Xience - ending in proximal aspect of OM2 aneurysm). Recommendations: To PCU for continued monitoring Reloaded with clopidogrel 300 mg in Drawer Fitter Continue dual-antiplatelet therapy for at least 6 months Consult cardiac Rehab Hemodynamics Rest Ao:: 106/58/78 Final Ao: 152/77/108 LV: -- Recommendations Recommendations: PCI without planned CABG Specimens Specimens: None Radiation Exposure (mGy) 1144 Contrast (mls) 95 Fluids (cc crystalloids) Fluids (cc crystalloids): 30 Drains Drains: None Anesthesia Moderate [id number] Procedural Complication(s) None Disposition PCU I attest to the content of the Intraoperative Record and any orders documented therein. Any exceptions are noted below. [facility] Card Cath Procedure Codes Cardiac Catheterization Procedure 1: Cardiovascular Cath Procedures: 77586 Coronaries Moderate Sedation Procedure 1: Sedation/Anesthesia: 12359 Mod Sedation by the same physician;Init15 Min Child Age 5 & Up Procedure 2: Sedation/Anesthesia: 39497 Mod Sedation by the same physician; Ea [id number] Minutes Stenting Procedure 1: Cardiovascular Stent Procedures: 32774 Perc transcatheter placement of intracoronary stent(s), with ang PG Care Time/CCT Total # of Minutes Spent Total Time Spent with Patient: Total time spent is greater than 50% in coordination of care (as documented) at patient's floor/unit and/or counseling patient:
[2020-07-03] MEDS: HEPARIN SOD 5,000 UNIT/0.5 ML VIAL SQ SCH (05:09)
[2020-07-03 08:09] LABS: Hematocrit (blood only) 31.5 % (37-47); Hemoglobin 10.2 g/dL (12.0-16.0); Mean Corpuscular Hemoglobin 31.8 pg (25-34); Mean Corpuscular Hgb Conc 32.4 g/dL (32-36); Mean Corpuscular Volume 98.1 fL (80-100); Mean Platelet Volume 9.8 fL (7.4-10.4); Platelet Count 309 K/uL (130-400); RDW Coefficient of Variation 16.4 % (11.5-14.5); RDW Standard Deviation 59.1 fL (36.4-46.3); Red Blood Count 3.21 M/uL (4.2-5.4)
[2020-07-03 08:54] LABS: BUN Creatinine Ratio 7.1 (10-20); Calcium 9.2 mg/dl (8.5-10.1); Creatinine Clr Calc Pharmacy 6.7 ml/min; Est GFR (African American) 9.6; Est GFR (Non-African American) 8.3; Potassium 4.2 mmol/L (3.5-5.1)
[2020-07-03] MEDS: CLOPIDOGREL BISULFATE 75 MG TAB PO SCH (09:03)
--- NOTE | 2020-07-03 10:17 | Cardiology Progress Note ---
Date of Service July 03, 2020 Assessment & Plan (1) Acute respiratory failure: 2. Multivessel coronary artery disease 3. ESRD on HD 4. PAD post endovascular intervention, multiple ischemic toes 5. Moderate mitral regurgitation 6. Anemia 7. Pulmonary hypertension Post PCI to circumflex yesterday. Tolerated procedure well. Feeling well today with no recurrent chest pain. Respiratory symptoms much improved from admission. From a cardiac standpoint okay with discharge today. Home on: DAPT with aspirin, clopidogrel Continue prior antihypertensives, statin. May discontinue Imdur as an outpatient Has scheduled follow-up on 07/13. Arterial duplex/toe pressures at that time. Will discuss systemic anticoagulation further at that time. Admission and Anticipated Discharge Date Admission Date: June 30, 2020 Subjective Feeling well today. No chest pain. Breathing comfortably on room air. Pain in toes reasonably controlled Telemetry reviewedno events. Review of Systems Review of Systems: All systems reviewed & are unremarkable except as noted in HPI & below Physical Exam Physical Exam: General: Comfortable HEENT: Sclerae anicteric Lungs: Clear to auscultation bilaterally Cardiac: Regular rate and rhythm Vascular: Left radial pulse intact. No hematoma Abdomen: Soft, nontender Extremities: No edema Neuro: Nonfocal Psych: Alert orient x3, normal affect and mood Results & Data ([facility]) Vital Signs (Past 12 Hours) Vital Signs Temp Pulse Pulse Resp BP Pulse Ox 07/03/20 08:00 91 H 07/03/20 06:19 98.4 F 81 19 141/75 H 96 07/03/20 04:30 97.7 F 94 H 25 H 125/80 94 07/03/20 00:00 110 H PG Care Time/CCT Total # of Minutes Spent Total Time Spent with Patient: Total time spent is greater than 50% in coordination of care (as documented) at patient's floor/unit and/or counseling patient: Coding Level of Care Code 80744 Subseq Hosp Care Lvl 3 Diagnoses Acute respiratory failure J96.00
[2020-07-03 12:34] VITALS: TEMP 98.6; O2SAT 98
--- NOTE | 2020-07-03 12:45 | Nephrology Progress Note ---
Date of Service July 03, 2020 Assessment & Plan (1) End stage renal disease: End-stage renal disease on hemodialysis Sunday, Sunday, Sunday at [place] to [facility]. Overall she is feeling well currently had hemodialysis yesterday, electrolyte, volume status acceptable. --okay to discharge this afternoon, she will have next dialysis Sunday at outpatient dialysis unit --continue on her home medications and discharge Will follow while in hospital. (2) Volume overload: (3) Acute respiratory failure: Admission and Anticipated Discharge Date Admission Date: June 30, 2020 Marietta Wright was seen and examined in her room this morning. She was feeling well, denies any shortness of breath or chest pain. Appetite has been decent. Blood pressure well controlled. Had dialysis yesterday, currently electrolyte, volume status acceptable. She is waiting to be discharged. Review of Systems Review of Systems: All systems reviewed & are unremarkable except as noted in Subjective Physical Exam Constitutional: well developed and well nourished; no acute distress Respiratory: normal respiratory effort, lungs clear to auscultation Cardiovascular: RRR, no murmur, no edema Neurologic: moves all extremities and awake; not confused Psychiatric: A+Ox3, euthymic affect Results & Data ([facility]) Vital Signs (Past 12 Hours) Vital Signs Temp Pulse Pulse Pulse Resp BP Pulse Ox 07/03/20 11:00 37.0 C 76 16 146/61 H 98 07/03/20 08:00 91 H 07/03/20 06:19 36.9 C 81 19 141/75 H 96 07/03/20 04:30 36.5 C 94 H 25 H 125/80 94 PG Care Time/CCT Total # of Minutes Spent Total Time Spent with Patient: Total time spent is greater than 50% in coordination of care (as documented) at patient's floor/unit and/or counseling patient: Coding Level of Care Code 61770 Subseq Hosp Care Lvl 2 Diagnoses End stage renal disease N18.6 Volume overload E87.70 Acute respiratory failure J96.00
--- NOTE | 2020-07-03 13:19 | Discharge Summary ---
Date of Service July 03, 2020 Admission HPI Per Admitting Provider Adriana Arnett is an 79yo C female with history of ESRD on HD q M/W/F (since December 2019), AAA, CAD, HLP presenting with acute hypoxic respiratory failure. Patient last received HD on 06/28/20 and has not missed any treatments. She still makes a small amount of urine. She developed acute onset SOB as well as chest tightness last night around 23:00 which prompted her to come to the ER. She has not had fever, chills, sweats. She has had no sick contacts. She has received both vaccines for Covid-19 ([employer]) Patient presented similarly to [facility] on 06/09/20 with acute hypoxic respiratory failure with initial saturations 80% on room air as well as mid scapular pain and a mildly elevated troponin. She had an echocardiogram performed on 06/09/20 which revealed normal LV size and function with EF of 55-60 as well as hypokinesis of the inferolateral wall. She had a sclerotic aortic valve and a tethered posterior mitral leaflet with probable moderate to severe MR and mild PH. Her symptoms were somewhat concerning for ACS - she had a cardiac catheterization performed on 06/10/20 which revealed severe chronic multivessel CAD with 95% mid-cx, 100% distal Cx and 100% distal RCA chronic occlusions with collaterals - anatomy largely unchanged from 2018. Patient hypoxic on arrival - 82% on room air. She was placed on NC then HFNC with minimal improvement. Presently on BiPAP 12/8 100% FiO2 saturating 94% ER Course: Zofran 4mg IV, Lasix 60mg IV Principal Diagnosis Acute on chronic diastolic CHF, Severe CAD s/p stent Discharge Exam Constitutional WD/WN, vitals as above Eyes + anicteric sclerae Neck trachea midline, no thyromegaly Respiratory normal respiratory effort, lungs clear to auscultation normal respiratory effort Auscultation: + crackles (Bibasilar, but improved); no rhonchi and no wheezes Cardiovascular RRR, no murmur, no edema Chest (Breasts) Chest: + vascular access device or port (Right side tunneled dialysis catheter) Gastrointestinal (Abdomen) normal bowel sounds, soft, nontender, no hepatosplenomegaly Musculoskeletal Extremities: + extremities abnormal to inspection (Right great, third, and fourth toes with purple-black discoloration) Skin no rashes, warm and dry + wound (Left toes with black eschar and purple discoloration) Neurologic moves all extremities and awake; no focal motor deficits Psychiatric A+Ox3, euthymic affect Eye Contact: good eye contact Speech: normal rate/rhythm/volume of speech Thought Process: goal directed thought process and linear/logical thought process Lymphatic no lymphedema Discharge Data Allergies Allergy/AdvReac Type Severity Reaction Status Date / Time hydrocodone Allergy Intermediate RASH, HIVES Verified 06/24/20 10:07 Sulfa (Sulfonamide AdvReac Intermediate "SULFA Verified 06/24/20 10:07 Antibiotics) DRUGS": N/V spironolactone AdvReac Mild GI Verified 06/24/20 10:07 SYMPTOMS,NAUSEA AND VOMITING Aldactazide AdvReac Unknown GI Unverified 07/24/17 10:20 SYMPTOMS,NAUSEA AND VOMITING hydrochlorothiazide AdvReac Unknown GI Verified 06/24/20 10:07 SYMPTOMS,NAUSEA AND VOMITING Consultations 06/30/20 07:35 Consult Nephrology Routine 06/30/20 10:05 Consult Cardiology Routine 07/01/20 19:05 Consult Palliative Care Routine 07/02/20 16:23 Consult Cardiac Rehabilitation Routine Procedures Performed Operation Date: 07/02/20 12:30 Actual Procedures p Drug Eluting Stent SGl Vessel - Sarbjit Pfeiffer MD s Cineradiography w/Routine Exam - Sarbjit Pfeiffer MD Ordered Studies 06/30/20 13:59 CT angio chest PE protocol Stat 07/02/20 14:56 CL Cath Imgs for PACS use only Stat CXR x 3 Hospital Course (1) Acute respiratory failure with hypoxia: 79yo female with ESRD on HD q // presenting with acute hypoxic respiratory failure secondary to flash pulmonary edema and cardiac ischemia. Initially was requiring BiPAP 12/8/100% saturating 93%. CXR suggestive of pulmonary edema. Patient presented similarly last month. -D-dimer significantly elevated 12,000-CT angiogram of the chest performed after discussion with nephrology-negative for PE; no evidence of DVT in the lower extremities on examination Procalcitonin is only minimally elevated in the setting of ESRD is not significant Do not suspect pneumonia. She is afebrile and not coughing. Covid-19 test is negative Has now had 3 yoln-ya-zasc dialysis treatments removing 2.6 L each day and received 1 dose of IV Lasix in the ER Is now weaned off O2 on 07/02 and remains stable on room air on day of discharge -Appreciate nephrology consultation -Consult cardiology-now s/p cardiac catheterization for intervention on her 95% mid circumflex lesion-stent palced and doing well Troponin elevated as below (2) Chronic diastolic CHF (congestive heart failure): Acute HFpEF in setting of ESRD and Cardiorenal syndrome requiring emergent daily inpatient dialysis As above, treated with hemodialysis and IV Lasix Echocardiogram with preserved EF last admission (3) Troponin level elevated: In setting of ESRD, known CAD. Patient had cardiac catheterization performed last hospital stay which revealed stable severe CAD, unchanged from prior Troponin 0.5/0.69/1.35-now trending back downward Had chest pain associate with flash pulmonary edema upon admission Discussed with cardiology-likely related to her tight circumflex lesion seen on cardiac catheterization from 3 weeks ago Now s/p intervention with stent palced now that pulmonary status is improved -Continue ASA, Plavix, Statin, and Metoprolol as BP allows -dc Imdur as per Cardiology Appreciate cardiology management (4) CAD (coronary artery disease): Patient with known CAD - last catheterization on 06/10/20. Chest pressure upon admission in setting of acute hypoxic respiratory failure -Continue ASA, Plavix, Crestor and Metoprolol as BP allows -Imdur dcd s/p stent (5) End stage renal disease: Patient on HD q M/W/F -Nephrology consultation appreciated Had hemodialysis upon admission urgently and had it again on 07/01, 07/02 Plan to return to Sunday schedule Patient describes very poor quality of life since being on dialysis and having chronic severe pain from her ischemic toes. She questions if she wants to continue on with care and is interested in discussion with palliative care for determining goals of care and facilitating discussion with her and family. She does request that her not be contacted by palliative care by phone as he is very emotional and she does not want him to be alone having that conversation. 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 with purple-black discoloration and eschar Discussed with cardiology-she has a lot of atherosclerotic disease in the thoracic aorta and is likely throwing small emboli to the toes Plan to possibly start therapeutic anticoagulation in the future to keep this from happening-consider apixaban 2.5 bid vs coumadin This causes severe pain -continue standing dose of tramadol at bedtime and a as needed dose during the day Continue gabapentin which is renally dosed at 100 mg at bedtime-there may be some small room to go up on this-could go up to bid Continue Tylenol as needed Palliative care consulted-appreciate any further management of chronic severe neuropathic/ischemic pain in the toes in the setting of end-stage renal disease- considering Fenatanyl patch as outpt (9) GERD (gastroesophageal reflux disease): Chronic -Continue Protonix (10) DVT prophylaxis: Ppx - Heparin Code - DNR/DNI confirmed Dispo dc to home Palliative care consulted for goals of care discussion in the setting of ESRD and severe CAD Total Time Total Time Spent Total Time Spent (In Minutes): 35 min Total Time Includes: Examination of the Patient, Discharge Planning, Medication Reconciliation and Communication With Other Providers (Cardiology) Discharge Plan Discharge Items Patient Disposition: Home - Self-Care Reason For Visit: ACUTE HYPOXIC RESPIRATORY FAILURE Discharge Diagnosis: Acute congestive heart failure, Severe CAD, Hypoxia Condition on Discharge: Fair Activity: Resume your previous activity Non-emergency contact: Primary Care Provider Call non-emergency contact if: you have any medication questions, your symptoms worsen and your pain is not controlled Follow-up/Referrals: Johnny Rai MD [Primary Care Provider] - (Follow up within 1-2 weeks.) Lola Huntley MD [Physician] - (Please follow up with Palliative Care within 1 week.) Diet: Dialysis Renal and Low Sodium (2gm) Ambulatory Orders: US arterial duplex LE BI (Routine) Timeframe: 2 Weeks Facility: [facility] [place] Practices - Location: [place] Ordered By: Sarbjit Pfeiffer Add Attending Provider Instructions: Please continue your usual dialysis as scheduled. Follow up with Palliative Care for improved pain control plan and with Dr. Pfeiffer for your issues with your toes. Your Isosorbide was discontinued by Dr. Pfeiffer. Pending Studies at Discharge: No Stand-Alone Forms: My PPS, Opioid Pain Management Medications and DC Order Prescriptions: New acetaminophen 325 mg Tablet 650 mg PO Q4H PRN (Reason: pain) Qty: 30 RF: 0 Continued cholecalciferol (vitamin D3) 2,000 unit capsule 2,000 units PO QAM RF: 0 clopidogrel 75 mg tablet 75 mg PO QAM Qty: 90 RF: 3 metoprolol succinate 50 mg tablet extended release 24 hr 50 mg PO HS Qty: 90 RF: 3 rosuvastatin 10 mg tablet 10 mg PO HS Qty: 90 RF: 3 exemestane 25 mg tablet 25 mg PO DAILY@1200 RF: 0 coenzyme Q10 200 mg capsule 200 mg PO QAM RF: 0 ondansetron 4 mg tablet,disintegrating 4 mg PO Q6H PRN (Reason: nausea and vomiting) Qty: 90 RF: 0 lansoprazole 30 mg capsule,delayed release(DR/EC) 30 mg PO DAILY Qty: 30 RF: 0 buspirone 5 mg tablet 5 mg PO DAILY Qty: 20 RF: 3 nystatin 100,000 unit/mL suspension 500,000 unit buccal QID 10 Days Qty: 200 RF: 3 amlodipine 10 mg tablet 10 mg PO QAM RF: 0 gabapentin 100 mg capsule 100 mg PO HS RF: 0 aspirin [Enteric Coated Aspirin] 81 mg tablet,delayed release (DR/EC) 81 mg PO HS RF: 0 tramadol 50 mg tablet 50 mg PO Q8H PRN (Reason: Pain) RF: 0 Discontinued isosorbide mononitrate 60 mg tablet extended release 24 hr 30 mg PO DAILY@1200 RF: 0 prednisone 10 mg tablet 10 mg PO DAILY Qty: 20 RF: 0 Discharge Orders: Discharge Order (Routine); Ordered 07/03/20 Ordered By: Flores Flores Admission Data Admit Date/Time: 06/30/20 06:18 Attending Provider: Flores Flores Admit Provider: Radha Felix Primary Care Provider: Johnny Rai Other Providers: Garrett Perez ; Sai Chen ; Lola Huntley Coding Level of Care Code D/C Day Management >30 mins Diagnoses Acute respiratory failure with hypoxia J96.01 Chronic diastolic CHF (congestive heart failure) I50.32 Troponin level elevated R77.8 CAD (coronary artery disease) I25.10 Coronary Disease-Associated Artery/Lesion type: [place] artery [place] vs. 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
[2020-07-03 13:32] VITALS: BP 164/52; PULSE 81
--- NOTE | 2020-07-09 14:16 | Coding Query ---
PRESENT ON ADMISSION QUERY To promote full compliance with coding requirements relating to pateint care, physician participation is requested in all cases of manager of warehouse uncertainty. Please assist us with the question(s) below: Please place an X within the parenthesis (x). The following diagnosis(es) listed in this patient's medical record require physician assistance to determine if they were present on admission (POA) or not. Please advise for each diagnosis whether it was present on admission, not present on admission, or if it was clinically undetermined. 1. ACUTE ON CHRONIC DIASTOLIC CHF (documented on Progress Notes beginning 07/01 through Discharge Summary) (x ) Present On Admission ( ) Not Present On Admission ( ) Clinically Undetermined Thank you Eve Matson *Definition of the present on admission (POA)-Present on admission is defined as present at the time the order for inpatient admission occurs. Conditions that develop during an outpatient encounter prior to a written order for inpatient admission (including emergency department, observation, or outpatient surgery) are considered present on admission. CELIA
--- NOTE | 2020-07-09 14:22 | Coding Query ---
CODING QUERY To promote full compliance with coding requirements relating to patient care, provider participation is requested in all cases of sole conforming machine operator uncertainty. Please assist us with the question(s) below: Coding Question(s): Flash Pulmonary Edema is documented through the record and on Discharge Summary with documentation of, "acute hypoxic respiratory failure secondary to flash pulmonary edema and cardiac ischemia". Please specify below, in your clinical opinion, regarding the most likely etiology of flash pulmonary edema. ( ) Flash Pulmonary Edema most likely from Acute on Chronic Diastolic CHF (x) Flash Pulmonary Edema most likely from CAD ( ) Flash Pulmonary Edema most likely from ESRD ( ) Flash Pulmonary Edema most likely from Other: Please Specify ( ) Flash Pulmonary Edema from Unknown likely source Physician's Response(s): Thank you Eve Matson Principal Diagnosis: "that condition established after study, to be chiefly responsible for occasioning the admission of the patient to the hospital for care." Co-Existing Principal Diagnosis: "when two or more diagnoses equally meet the criteria for principal diagnosis as determined by the circumstances of admission, diagnostic work up, and/or therapy provided, and the Alphabetic Index, Tabular List, or another coding guideline does not provide sequencing direction, any one of the diagnoses may be sequenced first." "When the physician has documented what appears to be a current diagnosis in the body of the record, but has not included the diagnosis in the final diagnostic statement, the physician should be asked whether the diagnosis should be added." (Source Coding [facility] 2 QTR90. p3-4) CELIA
== END 2020-07-03 14:41 | disposition home or self-care (01) | DRG 246 ==
LOC: ED 03:27 → EDINP 06:18 → SUATTDRO 06:18 → 2S 11:02

== ENCOUNTER 2020-08-08 20:45 | Inpatient (IN) ==
[2020-08-08] MEDS ORDERED: ACETAMINOPHEN 1,000 MG/100 ML VIAL IV STA (22:02)
[2020-08-08] MEDS ORDERED: fentaNYL citrate 100 MCG/2 ML VIAL IV PRN (22:02)
[2020-08-08] MEDS ORDERED: ONDANSETRON INJ 2 MG/ML 2 ML VIAL IV STA (22:02)
[2020-08-08 22:46] LABS: Basophils # (auto) 0.01 K/uL (0-0.2); Basophils % (auto) 0.1 %; Eosinophils # (auto) 0.01 K/uL (0-0.5); Eosinophils % (auto) 0.1 %; Hematocrit (blood only) 35.9 % (37-47); Hemoglobin 11.3 g/dL (12.0-16.0); Immature Granulocytes # (auto) 0.01 K/uL (0.00-0.02); Immature Granulocytes % (auto) 0.1 %; Lymphocytes # (auto) 0.75 K/uL (1.2-3.4); Mean Corpuscular Hemoglobin 30.2 pg (25-34); Mean Corpuscular Hgb Conc 31.5 g/dL (32-36); Mean Platelet Volume 9.5 fL (7.4-10.4); Monocytes # (auto) 0.93 K/uL (0.11-0.59); Monocytes % (auto) 13.6 %; Neutrophils # (auto) 5.13 K/uL (1.4-6.5); Neutrophils % (auto) 75.1 %; Platelet Count 357 K/uL (130-400); RDW Coefficient of Variation 15.9 % (11.5-14.5); RDW Standard Deviation 56.3 fL (36.4-46.3); Red Blood Count 3.74 M/uL (4.2-5.4); White Blood Count 6.84 K/uL (4.8-10.8)
[2020-08-08] MEDS: SODIUM CHLORIDE 0.9% 1000ML 1,000 ML IV SCH (22:47)
[2020-08-08 23:28] LABS: Albumin Globulin Ratio 0.6 (0.9-2); Albumin Level 3.2 gm/dl (3.4-5.0); BUN Creatinine Ratio 5.4 (10-20); Bilirubin,Total 0.4 mg/dl (0.2-1); Calcium 9.7 mg/dl (8.5-10.1); Creatinine Clr Calc Pharmacy 3.5 ml/min; Est GFR (African American) 4.8 ml/min; Est GFR (Non-African American) 4.1 ml/min; Potassium 6.4 mmol/L (3.5-5.1); Total Protein 8.2 gm/dl (6.4-8.2)
--- NOTE | 2020-08-08 23:50 | Emergency Department Note ---
History of Present Illness General Chief complaint: Vomiting Stated complaint: VOMITING,STOMACH SWELLING Time Seen by Provider: 08/08/20 21:29 Source: patient Mode of arrival: ambulatory Limitations: no limitations History of Present Illness Provider complaint: Abdominal pain, distention Onset (ago): hour(s) Location: abdomen Radiation: non-radiation Severity: moderate Pain Consistency: + constant Maximum Pain Intensity: 8 Current Pain Intensity: 8 Quality: + constant Relieved By: + none Exacerbated By: + movement Associated symptoms: + loss of appetite, + malaise and + nausea/vomiting; no fever/chills Treatments prior to arrival: none This is an 80-year-old female who presents due to concern for abdominal pain, diarrhea, vomiting, and increased abdominal distention. Patient states she woke up in the middle the night last night with several episodes of diarrhea. She states following that she had developed a pain in the left lower quadrant. She states she was able to rest for a few more hours and then into today she began to feel nauseated and had some vomiting. No blood was noted in her emesis or in her stools overnight. She states she has not had any recurrent bowel movements since the diarrhea. States the pain initially started on her left lower quadrant however after vomiting that subsided and she then began to develop pain in the right lower quadrant. Patient states she has had minimal passage of gas this afternoon. Patient is felt increased abdominal distention. Patient does feel nauseated, but has not had any persistent vomiting. No recent fevers or chills, no recent change in diet or medications. Patient most concerned for possible bowel obstruction given extensive prior surgical history. Patient states many years ago she underwent removal of almost her entire colon as well as subsequent reanastomosis. Patient states this was performed at the [facility]. Patient states that she has had follow-up since then although has never had a bowel obstruction. Patient is a chronic kidney patient who does have dialysis Sunday/Sunday/Sunday. Pt seen during a time of high acuity and national emergency pandemic while wearing PPE. Home Medications Medication Instructions Recorded Confirmed Type cholecalciferol (vitamin D3) 50 2,000 units PO QAM 10/16/18 08/09/20 History mcg (2,000 unit) capsule coenzyme Q10 200 mg capsule 200 mg PO QAM cap 10/31/18 08/09/20 History exemestane 25 mg tablet 25 mg PO DAILY@1200 tab 10/31/18 08/09/20 History aspirin [Enteric Coated Aspirin] 81 mg PO HS 01/23/19 08/09/20 History clopidogrel 75 mg tablet 75 mg PO QAM #90 tab 12/29/19 08/09/20 Rx metoprolol succinate 50 mg 50 mg PO HS #90 tab 01/16/20 08/09/20 Rx tablet,extended release 24 hr amlodipine 10 mg PO QAM 02/27/20 08/09/20 History rosuvastatin 10 mg tablet 10 mg PO HS #90 tab 04/08/20 08/09/20 Rx lansoprazole 30 mg capsule,delayed 30 mg PO DAILY #30 cap 06/03/20 08/09/20 Rx release ondansetron 4 mg disintegrating 4 mg PO Q6H PRN #90 tab 06/03/20 08/09/20 Rx tablet acetaminophen 650 mg PO Q4H PRN #30 tab 07/03/20 08/09/20 Rx methadone 5 mg tablet 2.5 mg PO BID 30 Days #30 tab 07/27/20 08/09/20 Rx buspirone 5 mg PO DAILY PRN 08/09/20 08/09/20 History gabapentin 200 mg PO DAILY 08/09/20 08/09/20 History Allergies Allergy/AdvReac Type Severity Reaction Status Date / Time hydrocodone Allergy Intermediate RASH, HIVES Verified 08/09/20 00:59 Sulfa (Sulfonamide AdvReac Intermediate "SULFA Verified 08/09/20 00:59 Antibiotics) DRUGS": N/V hydrochlorothiazide AdvReac Mild GI Verified 08/09/20 00:59 SYMPTOMS,NAUSEA AND VOMITING spironolactone AdvReac Mild GI Verified 08/09/20 00:59 SYMPTOMS,NAUSEA AND VOMITING Aldactazide AdvReac Unknown GI Unverified 07/24/17 10:20 SYMPTOMS,NAUSEA AND VOMITING Past Med/Surg History Medical History (Updated 08/10/20 @ 17:05 by Lola Tao DO) AAA (abdominal aortic aneurysm) PCP monitoring. "Mild fusiform aneurysmal dilatation of the distal thoracic and abdominal aorta." per 02/27/[address] CAD (coronary artery disease) Severe multivessel coronary artery diseaseoccluded distal right, occluded distal circumflex, 90% focal stenosis in mid circumflex into OM1 - follows with Dr. Pfeiffer Cancer of left breast, stage 1 (07/23/15) Chronic diastolic CHF (congestive heart failure) Degenerative joint disease, multiple joints on both sides of body Dyslipidemia ESRD (end stage renal disease) on dialysis started dialysis 12/2019 - [facility] - follows with Dr. Kaur Fibromyalgia GERD (gastroesophageal reflux disease) History of breast cancer Lt lumpectomy/chemo/radiation 2016 History of femoral angiogram History of myocardial infarction silent -- informed in 2018 of evidence of previous OR History of skin cancer removed History of stent insertion of renal artery Lt History of ulcerative colitis Hypertension Mitral regurgitation Osteoarthritis PAD (peripheral artery disease) Peripheral neuropathy Right renal artery stenosis h/o failed attempt to stent Rt renal artery per pt - atheroemboli to her feet and kidneys Spinal stenosis Surgical History History of anesthesia reaction "easy to put out and hard to wake up" History of breast biopsy History of cardiac catheterization 2017 [place] -abn stress test - no stents History of colectomy No colostomy, anastamosis of small bowel. History of colonoscopy History of esophagogastroduodenoscopy (EGD) History of lumpectomy of left breast History of vascular access device temporary dialysis catheter to Rt chest History of vascular surgery 03/22/2020 DR Pfeiffer [facility] stents to BLLE Family History Mother Colon cancer Cardiac disorder Hypertension Father Colon cancer Cardiac disorder Cancer Family/Other Coronary arteriosclerosis Other No family history of adverse response to anesthesia Social History Smoking Status: Never smoker Second Hand Exposure: No; Hx Alcohol Use: No Hx Substance Use: No Preferred Language: Portuguese Communication Ability: Effective Coin Counter And Wrapper Required: No Beliefs That Will Affect Care: None marital status: Current Living Situation: Spouse current occupational status: retired How many Children do You have: 1 How many Children do You have Comment: not local. able to assist with care as needed. Feels Safe at Home: Yes Diet Comment: renal diet during the past year weight has: decreased > 10 lbs Assistive Devices: Denture - Upper and Glasses Review of Systems See HPI for pertinent positives & negatives. and A total of 10 systems reviewed and were otherwise negative Physical Exam Vital Signs Vital Signs - 24 hr 08/08/20 20:51 08/08/20 23:00 08/09/20 00:00 Temperature 36.6 C Temperature Source Temporal Artery Scan Pulse Rate 95 H 90 Pulse Rate [Apical] 86 Respiratory Rate 18 23 22 Blood Pressure 111/78 142/84 H Blood Pressure [Left Arm] 110/76 Blood Pressure Mean 89 103 Blood Pressure Mean [Left Arm] 87 Blood Pressure Position Sitting Pulse Oximetry 99 97 95 Oxygen Delivery Method Room Air Room Air Room Air Sepsis Recent Fever Within 48 Hours No Sepsis New/Unexplained Change in Mental Status No Sepsis Action Taken by Nursing No Action Required 08/09/20 01:00 08/09/20 01:20 Temperature Temperature Source Pulse Rate 90 85 Pulse Rate [Apical] Respiratory Rate 20 18 Blood Pressure 127/78 Blood Pressure [Left Arm] Blood Pressure Mean 94 Blood Pressure Mean [Left Arm] Blood Pressure Position Pulse Oximetry 95 96 Oxygen Delivery Method Sepsis Recent Fever Within 48 Hours Sepsis New/Unexplained Change in Mental Status Sepsis Action Taken by Nursing GENERAL: alert, well appearing, well nourished, no distress, non-toxic EYE EXAM: normal conjunctiva, PERRL and EOM's grossly intact OROPHARYNX: no exudate, no erythema, lips, buccal mucosa, and tongue normal and mucous membranes are moist NECK: supple, no nuchal rigidity, no adenopathy, non-tender LUNGS: Clear to auscultation. Normal chest wall mechanics, no w/r/r HEART: no murmurs, S1 normal and S2 normal ABDOMEN: abdomen soft, generalized discomfort however acute tenderness with palpation of the right lower quadrant, tympanic to percussion, well-healed surgical scars noted,, normo-active bowel sounds, no masses, no rebound. BACK: Back is symmetrical on inspection and there is no deformity, no midline tenderness, no CVA tenderness. SKIN: no rashes and no bruising UPPER EXTREMITIES: upper extremities are grossly normal. FROM, nml pulses b/l. LOWER EXTREMITIES: No pitting edema. FROM, nml pulses b/l. Necrotic appearing great toe on the right foot with additional areas of cyanosis noted to other digits. Patient states this was from micro emboli following a procedure to stent her renal artery. Patient states the appearance is improving, scabs have healed and fallen off, she has regained improved sensation and decreased pain as they have healed. NEURO EXAM: Normal sensorium, cranial nerves II-XII grossly intact, normal speech, no gross weakness of arms, no gross weakness of legs. Gross sensation intact. Course Course 0055: Patient updated on CT findings. Verbalized understanding was in agreement. 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 Kaur, and she would be due for her regular scheduled dialysis in the morning. 0115: Pt seen at bedside by Ryan Ken PA-C with gen surg. 0135: Discussed with Dr. Brambila. 0215: Pt vomited while being evaluated by hospitalist. NG tube ordered. Administered Medications Acetaminophen (Acetaminophen 1000 Mg/100 Ml Iv) 1,000 mg IV Q8H PRN; Protocol PRN Reason: Pain Stop: 08/12/20 15:56 Last Admin: 08/10/20 00:09 Dose: 1,000 mg Documented by: [id number] Amlodipine Besylate (Amlodipine Besylate 5 Mg Tab) 10 mg PO QAM [facility] Stop: 09/08/20 08:59 Last Admin: 08/10/20 07:42 Dose: Not Given Documented by: [id number] Admin: 08/09/20 10:03 Dose: Not Given Documented by: [id number] Aspirin (Aspirin 81 Mg Ectab) 81 mg PO HS [facility] Stop: 09/08/20 20:59 Last Admin: 08/09/20 21:46 Dose: Not Given Documented by: [id number] Clopidogrel Bisulfate (Clopidogrel Bisulfate 75 Mg Tab) 75 mg PO QAM [facility] Stop: 09/08/20 08:59 Last Admin: 08/10/20 07:42 Dose: Not Given Documented by: [id number] Admin: 08/09/20 10:03 Dose: Not Given Documented by: [id number] Gabapentin (Gabapentin 100 Mg Cap) 200 mg PO DAILY [facility] Stop: 09/08/20 08:59 Last Admin: 08/10/20 07:42 Dose: Not Given Documented by: [id number] Admin: 08/09/20 10:03 Dose: Not Given Documented by: [id number] Heparin Sodium (Porcine) (Heparin Sod 5,000 Unit/0.5 Ml Vial) 5,000 units SQ Q12 CARLEY Stop: 09/08/20 08:59 Last Admin: 08/10/20 07:43 Dose: 5,000 units Documented by: [id number] Admin: 08/09/20 21:46 Dose: Not Given Documented by: [id number] Admin: 08/09/20 10:03 Dose: 5,000 units Documented by: [id number] Sodium Chloride (Nss 1000ml) 1,000 mls @ 80 mls/hr IV .[id number] [facility] Stop: 09/07/20 22:14 Last Admin: 08/10/20 08:01 Dose: Not Given Documented by: [id number] Admin: 08/10/20 04:56 Dose: 80 mls/hr Documented by: [id number] Infusion: 08/10/20 04:40 Dose: 80 mls/hr Documented by: [id number] Admin: 08/09/20 16:10 Dose: 80 mls/hr Documented by: [id number] Infusion: 08/09/20 16:10 Dose: 80 mls/hr Documented by: [id number] Admin: 08/09/20 03:57 Dose: 80 mls/hr Documented by: [id number] Infusion: 08/09/20 03:57 Dose: 125 mls/hr Documented by: [id number] Admin: 08/08/20 22:47 Dose: 125 mls/hr Documented by: [id number] Lansoprazole (Lansoprazole 30 Mg Soltab) 30 mg PO DAILY [facility] Stop: 09/08/20 08:59 Last Admin: 08/10/20 07:42 Dose: Not Given Documented by: [id number] Admin: 08/09/20 10:03 Dose: Not Given Documented by: [id number] Metoprolol Succinate (Metoprolol Succ 50mg Ext Rel Tab) 50 mg PO HS [facility] Stop: 09/08/20 20:59 Last Admin: 08/09/20 21:46 Dose: Not Given Documented by: [id number] Metoprolol Tartrate (Metoprolol Tartrate 1 Mg/Ml Vial) 5 mg IV Q5M PRN PRN Reason: Tachycardia HR>120 Stop: 09/08/20 17:33 Last Admin: 08/09/20 21:22 Dose: 5 mg Documented by: [id number] Miscellaneous (Exemestane: Order Awaiting Action) 1 ea N/A QS [facility] Stop: 09/08/20 07:59 Last Admin: 08/10/20 15:53 Dose: Not Given Documented by: [id number] Admin: 08/10/20 07:39 Dose: Not Given Documented by: [id number] Admin: 08/10/20 04:56 Dose: Not Given Documented by: [id number] Admin: 08/09/20 16:09 Dose: Not Given Documented by: [id number] Admin: 08/09/20 10:02 Dose: Not Given Documented by: [id number] Morphine Sulfate (Morphine Sulfate 2 Mg/Ml Carp) 2 mg IV Q2H PRN PRN Reason: Severe Pain Stop: 08/23/20 17:34 Last Admin: 08/10/20 12:43 Dose: 2 mg Documented by: [id number] Admin: 08/10/20 07:39 Dose: 2 mg Documented by: [id number] Admin: 08/10/20 04:31 Dose: 2 mg Documented by: [id number] Admin: 08/09/20 21:21 Dose: 2 mg Documented by: [id number] Ondansetron HCl (Ondansetron Inj 2 Mg/Ml 2 Ml Vial) 4 mg IV Q6H PRN PRN Reason: Nausea Stop: 09/08/20 03:49 Last Admin: 08/09/20 16:17 Dose: 4 mg Documented by: [id number] Rosuvastatin Calcium (Rosuvastatin Calcium 10 Mg Tab) 10 mg PO HS CARLEY Stop: 09/08/20 20:59 Last Admin: 08/09/20 21:47 Dose: Not Given Documented by: [id number] Vitamin D (Cholecalciferol 1,000 Units 25 Mcg Tab) 2,000 units PO QAM [facility] Stop: 09/08/20 08:59 Last Admin: 08/10/20 07:42 Dose: Not Given Documented by: [id number] Admin: 08/09/20 10:03 Dose: Not Given Documented by: [id number] Discontinued Medications Acetaminophen (Acetaminophen 1000 Mg/100 Ml Iv) Confirm Administered Dose 1,000 mg IV .STK-MED ONE Stop: 08/09/20 16:07 Last Admin: 08/09/20 16:09 Dose: 1,000 mg Documented by: [id number] Fentanyl (Fentanyl 12 Mcg/Hr Tdsy) 12 mcg TD Q72H CARLEY Stop: 08/23/20 05:59 Last Admin: 08/09/20 05:49 Dose: Not Given Documented by: [id number] Fentanyl Citrate (Fentanyl Citrate 100 Mcg/2 Ml Vial) 50 mcg IV Q15M PRN PRN Reason: Pain Stop: 08/22/20 22:01 Last Admin: 08/08/20 22:46 Dose: 50 mcg Documented by: [id number] Heparin Sodium (Porcine) (Heparin Sod (Porcine) 1000 Unit/Ml) 2,000 units IV ONE ONE Stop: 08/09/20 10:54 Last Admin: 08/09/20 13:29 Dose: Not Given Documented by: [id number] Acetaminophen (Ofirmev) 1,000 mg in 100 mls @ 400 mls/hr IV NOW STA Stop: 08/08/20 22:16 Last Infusion: 08/08/20 23:00 Dose: 0 mls/hr Documented by: [id number] Admin: 08/08/20 22:46 Dose: 400 mls/hr Documented by: [id number] Ioversol (Optiray 300 100ml) 100 ml IV ONCE ONE Stop: 08/09/20 00:24 Last Admin: 08/09/20 00:23 Dose: 100 ml Documented by: [id number] Miscellaneous (Fentanyl Patch Remove & Waste) 1 ea N/A Q72H [facility] Stop: 09/08/20 05:58 Last Admin: 08/09/20 05:49 Dose: Not Given Documented by: [id number] Miscellaneous (Check Fentanyl Patch Placement) 1 ea N/A QS [facility] Stop: 09/08/20 07:59 Last Admin: 08/09/20 10:02 Dose: Not Given Documented by: [id number] Miscellaneous (Fentanyl Patch Remove & Waste) 1 ea N/A NOW ONE Stop: 08/09/20 14:01 Last Admin: 08/09/20 15:24 Dose: Not Given Documented by: [id number] Ondansetron HCl (Ondansetron Inj 2 Mg/Ml 2 Ml Vial) 4 mg IV NOW STA Stop: 08/08/20 22:03 Last Admin: 08/08/20 22:46 Dose: 4 mg Documented by: [id number] Medical Decision Making Differential Diagnosis Differential diagnoses includes but is not limited to gastritis, peptic ulcer disease, GERD, gallbladder disease, pancreatitis, small bowel obstruction, acute coronary syndrome, pericarditis, ischemic bowel, irritable bowel disease, irritable bowel syndrome, appendicitis, diverticulitis, malignancy, hernia, urinary tract infection, torsion, [/ectopic (if female)], perforation, trauma, infectious. Medical Records Attestation: I reviewed the patient's medical records. Home Medications Current Medication List: was personally reviewed by me Laboratory Data Attestation: I reviewed the patient's lab results. Result diagrams: 08/09/20 05:57 08/09/20 05:57 Lab Results 08/08/20 08/08/20 08/08/20 Range/Units 22:38 22:38 22:38 WBC 6.84 (4.8-10.8) K/uL RBC 3.74 L (4.2-5.4) M/uL Hgb 11.3 L (12.0-16.0) g/dL Hct 35.9 L (37-47) % MCV 96.0 (80-100) fL MCH 30.2 (25-34) pg MCHC 31.5 L (32-36) g/dL RDW Std Deviation 56.3 H (36.4-46.3) fL RDW Coeff of Max 15.9 H (11.5-14.5) % Plt Count 357 (130-400) K/uL MPV 9.5 (7.4-10.4) fL Immature Gran % (Auto) 0.1 % Neut % (Auto) 75.1 % Lymph % (Auto) 11.0 % Hughes % (Auto) 13.6 % Eos % (Auto) 0.1 % Baso % (Auto) 0.1 % Neut # (Auto) 5.13 (1.4-6.5) K/uL Lymph # (Auto) 0.75 L (1.2-3.4) K/uL Hughes # (Auto) 0.93 H (0.11-0.59) K/uL Eos # (Auto) 0.01 (0-0.5) K/uL Baso # (Auto) 0.01 (0-0.2) K/uL Immature Gran # (Auto) 0.01 (0.00-0.02) K/uL Sodium 131 L (136-145) mmol/L Potassium 6.4 H* (3.5-5.1) mmol/L Chloride 91 L (98-107) mmol/L Carbon Dioxide 28 (21-32) mmol/L Anion Gap 12.0 H (3-11) BUN 45 H (7-18) mg/dl Creatinine 8.15 H* (0.6-1.2) mg/dl Est Cr Clr Drug Dosing 3.5 ml/min Est GFR ( Amer) 4.8 ml/min Est GFR (Non-Af Amer) 4.1 ml/min BUN/Creatinine Ratio 5.4 L (10-20) Glucose 111 H (70-99) mg/dl Lactate 2.8 H* (0.4-2.0) mmol/L Calcium 9.7 (8.5-10.1) mg/dl Total Bilirubin 0.4 (0.2-1) mg/dl AST 10 L (15-37) U/L ALT 9 L (12-78) U/L Alkaline Phosphatase 63 (45-117) U/L Total Protein 8.2 (6.4-8.2) gm/dl Albumin 3.2 L (3.4-5.0) gm/dl Globulin 5.0 H (2.5-4.0) gm/dl Albumin/Globulin Ratio 0.6 L (0.9-2) Lipase 97 (73-393) U/L COVID-19 Eval Order SARS-CoV-2 (PCR) (Negative) 08/09/20 08/09/20 Range/Units 00:57 00:57 WBC (4.8-10.8) K/uL RBC (4.2-5.4) M/uL Hgb (12.0-16.0) g/dL Hct (37-47) % MCV (80-100) fL MCH (25-34) pg MCHC (32-36) g/dL RDW Std Deviation (36.4-46.3) fL RDW Coeff of Max (11.5-14.5) % Plt Count (130-400) K/uL MPV (7.4-10.4) fL Immature Gran % (Auto) % Neut % (Auto) % Lymph % (Auto) % Hughes % (Auto) % Eos % (Auto) % Baso % (Auto) % Neut # (Auto) (1.4-6.5) K/uL Lymph # (Auto) (1.2-3.4) K/uL Hughes # (Auto) (0.11-0.59) K/uL Eos # (Auto) (0-0.5) K/uL Baso # (Auto) (0-0.2) K/uL Immature Gran # (Auto) (0.00-0.02) K/uL Sodium (136-145) mmol/L Potassium (3.5-5.1) mmol/L Chloride (98-107) mmol/L Carbon Dioxide (21-32) mmol/L Anion Gap (3-11) BUN (7-18) mg/dl Creatinine (0.6-1.2) mg/dl Est Cr Clr Drug Dosing ml/min Est GFR ( Amer) ml/min Est GFR (Non-Af Amer) ml/min BUN/Creatinine Ratio (10-20) Glucose (70-99) mg/dl Lactate (0.4-2.0) mmol/L Calcium (8.5-10.1) mg/dl Total Bilirubin (0.2-1) mg/dl AST (15-37) U/L ALT (12-78) U/L Alkaline Phosphatase (45-117) U/L Total Protein (6.4-8.2) gm/dl Albumin (3.4-5.0) gm/dl Globulin (2.5-4.0) gm/dl Albumin/Globulin Ratio (0.9-2) Lipase (73-393) U/L COVID-19 Eval Order Covid19 at [facility] SARS-CoV-2 (PCR) NEGATIVE (Negative) Imaging Data Radiologist's Impression: CT abdomen and pelvis with contrast: Findings consistent with bowel obstruction. Loops of dilated proximal and mid small bowel loops measuring up to 3.7 cm containing air-fluid levels. There is return to normal caliber in the left mid abdomen (series 2, image 60), but without suggestion of focal stricture point. Small volume of free fluid in the pelvis. Descending thoracic aortic aneurysm measuring up to 4.3 cm in diameter. There is associated surrounding mural thrombus. The thoracic aneurysm continues to the abdominal aorta measuring up to 3.9 cm in the infrarenal re gion. Moderate mucosal thickening of the rectum. Correlate for proctitis. Moderate to severe atrophy of the kidneys. Radiologist: Leonel Scott MD MDM Narrative THis is an 80 yo female who presents with abd pain, distention, n/v/d and concern for bowel obstruction given her extensive surgical history. Pt afebrile. No v/d while in the ER until after results were known and she was being evaluated by the hospitalist. We had initially discussed avoiding an NG once bowel obstruction was seen on CT, however after vomiting reoccurred NG tube was ordered with significant evacuation of emesis. Pt afebrile and hemodynamically stable. Hyperkalemia noted however pt otherwise asymptomatic and is due for HD in several hours. No ectopy noted on EKG or tele. No obvious peaked T waves. Other labs reassuring and appear stable. Several other CT findings noted, however these appear to be chronic and unchanging as I feel the bowel obstruction is the probable cause of her symptoms. Pt given medication for pain and nausea while in the ER. She was seen by gen surg PA and the hospitalist. Initial lactate mildly elevated, however I do not suspect ischemic process. Pt was given IV dye during CT as she would be getting HD in several hours regardless and given the broad differential considered due to her significant past medical history, on discussion with pt we felt benefits outweighed risks. An order was placed for continuous cardiac monitoring. The monitor shows a rate of _92_ with _normal sinus_ rhythm. Impression & Plan Abdominal pain, Small bowel obstruction, Nausea vomiting and diarrhea, CKD (chronic kidney disease) Discharge Plan Visit Data Chief Complaint: Vomiting Stated Complaint: VOMITING,STOMACH SWELLING ED Provider: Lola Tao Discharge Problem: Abdominal pain, Small bowel obstruction, Nausea vomiting and diarrhea, CKD (chronic kidney disease) Patient Disposition: Admitted As Inpatient Discharge Instructions Interventions: ED Discharge Assessment Last Done: 08/09/20 03:05 Discharge Problem: Abdominal pain Qualifiers: Abdominal location: right lower quadrant Qualified Code(s): R10.31 - Right lower quadrant pain CKD (chronic kidney disease) Qualifiers: Chronic kidney disease stage: on chronic dialysis Qualified Code(s): N18.6 - End stage renal disease
[2020-08-09] MEDS ORDERED: OPTIRAY 300 100mL IV ONE (00:23)
--- NOTE | 2020-08-09 01:43 | Surgery Consultation ---
Date of Consultation August 09, 2020 Assessment & Plan (1) Small bowel obstruction: Patient is to be admitted to the hospital in the hospital service. We recommend proceeding as follows: Keep the patient n.p.o. Provide IV fluid for hydration pain close attention to her volume status as she is a dialysis patient Provide analgesics Provide antiemetics I discussed with the patient that the obstruction noted on CT scan is likely on the basis of adhesions from previous surgery. I discussed with her that oftentimes these can be resolved with conservative measures as outlined above. I did discuss with her that if she has worsening abdominal pain, worsening abdominal distention, or recurrence of her nausea vomiting she will require an NG tube for decompression. I further discussed with her that if her clinical situation deteriorates it may necessitate the need for surgical intervention but we will try conservative measures first. Patient is noted to have a slightly elevated lactic acid level so it would be prudent to repeat this in the morning. Remainder of plan as directed by the hospital service We will continue to follow the patient is hospitalized Supervising Physician Co-Signing Physician Notes I personally saw and evaluated the patient with Rickie Ken PA-C and agree with the assessment and plan 80 yo female with multiple medical co morbidities here with SBO -No plans for any surgical intervention at this time -She is extremely high risk for surgery being on DAPT and with recent LAN placement 5 weeks ago for NSTEMI -Will plan on nonoperative management at this time -NPO/NGT/IVF History of Present Illness Reason for Consultation: Small bowel obstruction History of Present Illness Male who presented to [facility] emergency department this evening secondary to abdominal pain as well as nausea vomiting. Patient notes that she has a history of ulcerative colitis and she underwent a total colectomy with a temporary ileostomy in 1979. She notes her ileostomy has subsequently been reversed. She denies any other previous abdominal surgeries. Patient notes she was in her usual state of health yesterday and she was able to eat a normal amount. She notes approximately 12 to 24 hours ago however she developed abdominal pain that is primarily located in the left lower quadrant but has since shifted primarily to the right lower quadrant. Pain does not have any modifying factors and does not radiate. She denies any fevers, shakes, chills but has had nausea and vomiting. Patient notes that the day prior to presentation to the emergency department she had a normal bowel movement but since then she has not had any further bowel movements and is not passing any flatus. As her symptoms persisted she presented to the emergency department. In the emergency department the patient had labs and imaging which were independently reviewed by myself. She had a CT scan of the abdomen that showed concern for small bowel obstruction with no focal transition point. A CBC revealed her white blood cell count was within normal range. Her hemoglobin was noted to be 11.3 and her hematocrit was 35.9. Her platelet count was noted to be normal. Temperature profile revealed her sodium was 131, potassium 6.4, BUN 45, and creatinine 8.1. Lactic acid level had a slight elevation at 2.8. Lipase was noted to be normal there is no elevation of LFTs. Covid test has been ordered and is pending. There is no over the mention the patient notes that she is currently on hemodialysis as directed by Dr. Kaur and her next dialysis session is due tomorrow. At the time of my interview the patient complained of some right lower quadrant abdominal pain and some nausea. She says she has not thrown up in several hours and she was in no distress at the time of my interview. Allergies Allergy/AdvReac Type Severity Reaction Status Date / Time hydrocodone Allergy Intermediate RASH, HIVES Verified 08/09/20 00:59 Sulfa (Sulfonamide AdvReac Intermediate "SULFA Verified 08/09/20 00:59 Antibiotics) DRUGS": N/V hydrochlorothiazide AdvReac Mild GI Verified 08/09/20 00:59 SYMPTOMS,NAUSEA AND VOMITING spironolactone AdvReac Mild GI Verified 08/09/20 00:59 SYMPTOMS,NAUSEA AND VOMITING Aldactazide AdvReac Unknown GI Unverified 07/24/17 10:20 SYMPTOMS,NAUSEA AND VOMITING Home Medications Medication Instructions Recorded Confirmed Type cholecalciferol (vitamin D3) 50 2,000 units PO QAM 10/16/18 08/09/20 History mcg (2,000 unit) capsule coenzyme Q10 200 mg capsule 200 mg PO QAM cap 10/31/18 08/09/20 History exemestane 25 mg tablet 25 mg PO DAILY@1200 tab 10/31/18 08/09/20 History aspirin [Enteric Coated Aspirin] 81 mg PO HS 01/23/19 08/09/20 History clopidogrel 75 mg tablet 75 mg PO QAM #90 tab 12/29/19 08/09/20 Rx metoprolol succinate 50 mg 50 mg PO HS #90 tab 01/16/20 08/09/20 Rx tablet,extended release 24 hr amlodipine 10 mg PO QAM 02/27/20 08/09/20 History rosuvastatin 10 mg tablet 10 mg PO HS #90 tab 04/08/20 08/09/20 Rx lansoprazole 30 mg capsule,delayed 30 mg PO DAILY #30 cap 06/03/20 08/09/20 Rx release ondansetron 4 mg disintegrating 4 mg PO Q6H PRN #90 tab 06/03/20 08/09/20 Rx tablet acetaminophen 650 mg PO Q4H PRN #30 tab 07/03/20 08/09/20 Rx methadone 5 mg tablet 2.5 mg PO BID 30 Days #30 tab 07/27/20 08/09/20 Rx buspirone 5 mg PO DAILY PRN 08/09/20 08/09/20 History gabapentin 200 mg PO DAILY 08/09/20 08/09/20 History Patient History Medical History (Updated 08/09/20 @ 05:47 by Mavis Penn MD) AAA (abdominal aortic aneurysm) PCP monitoring. "Mild fusiform aneurysmal dilatation of the distal thoracic and abdominal aorta." per 02/27/[address] CAD (coronary artery disease) Severe multivessel coronary artery diseaseoccluded distal right, occluded distal circumflex, 90% focal stenosis in mid circumflex into OM1 - follows with Dr. Pfeiffer Cancer of left breast, stage 1 (07/23/15) Chronic diastolic CHF (congestive heart failure) Degenerative joint disease, multiple joints on both sides of body Dyslipidemia ESRD (end stage renal disease) on dialysis started dialysis 12/2019 - [facility] - follows with Dr. Kaur Fibromyalgia GERD (gastroesophageal reflux disease) History of breast cancer Lt lumpectomy/chemo/radiation 2016 History of femoral angiogram History of myocardial infarction silent -- informed in 2018 of evidence of previous DC History of skin cancer removed History of stent insertion of renal artery Lt History of ulcerative colitis Hypertension Mitral regurgitation Osteoarthritis PAD (peripheral artery disease) Peripheral neuropathy Right renal artery stenosis h/o failed attempt to stent Rt renal artery per pt - atheroemboli to her feet and kidneys Spinal stenosis Surgical History History of anesthesia reaction "easy to put out and hard to wake up" History of breast biopsy History of cardiac catheterization 2018 [place] -abn stress test - no stents History of colectomy No colostomy, anastamosis of small bowel. History of colonoscopy History of esophagogastroduodenoscopy (EGD) History of lumpectomy of left breast History of vascular access device temporary dialysis catheter to Rt chest History of vascular surgery 03/22/2020 DR Pfeiffer [facility] stents to BLLE Family History Mother Colon cancer Cardiac disorder Hypertension Father Colon cancer Cardiac disorder Cancer Family/Other Coronary arteriosclerosis Other No family history of adverse response to anesthesia Social History Smoking Status: Never smoker Second Hand Exposure: No; Hx Alcohol Use: No Hx Substance Use: No Preferred Language: French Communication Ability: Effective Vegetable Washer Required: No Beliefs That Will Affect Care: None marital status: Current Living Situation: Spouse current occupational status: retired How many Children do You have: 1 How many Children do You have Comment: not local. able to assist with care as needed. Other Information That Helps Us Care for You: No Feels Safe at Home: Yes Safety Concerns: Feels Safe At This Time Diet Comment: renal diet during the past year weight has: decreased > 10 lbs Assistive Devices: Denture - Upper and Glasses Review of Systems Constitutional: no fever and no chills Eyes: no diplopia Ear, Nose, Mouth, Throat: no ear pain Respiratory: no cough and no dyspnea Cardiovascular: no chest pain Gastrointestinal: + abdominal pain, + nausea and + vomiting Musculoskeletal: no back pain Integumentary: no rash Neurologic: no localized weakness Physical Exam Constitutional: no acute distress Eyes: Wears glasses ENMT: Ears: no hearing impairment Neck: trachea midline Respiratory: normal respiratory effort; no respiratory distress and no labored breathing Cardiovascular: Rate/Rhythm: regular rate and regular rhythm Gastrointestinal (Abdomen): Abdomen is mildly distended. There is no rebound tenderness or guarding but the patient did have pain with palpation in the right lower quadrant. Slight tympany was noted to percussion. Musculoskeletal: No calf tenderness Skin: no rashes, warm and dry Neurologic: moves all extremities Psychiatric: A+Ox3, euthymic affect Results & Data ([facility]) Vital Signs (Past 12 Hours) Vital Signs Temp Pulse Pulse Resp BP BP Pulse Ox 08/09/20 01:20 85 18 127/78 96 08/09/20 01:00 90 20 95 08/09/20 00:00 90 22 142/84 H 95 08/08/20 23:00 86 23 110/76 97 08/08/20 20:51 36.6 C 95 H 18 111/78 99 PG Care Time/CCT Total # of Minutes Spent Total Time Spent with Patient: Total time spent is greater than 50% in coordination of care (as documented) at patient's floor/unit and/or counseling patient: Coding Level of Care Code 48416 Inpt Consult Level 5 Diagnoses Small bowel obstruction K56.609
--- NOTE | 2020-08-09 02:26 | History & Physical Report ---
Date of Service August 09, 2020 Assessment & Plan (1) Small bowel obstruction: 80 yo F with extensive PMH including ESRD on dialysis, h/o colectomy, Pulm htn, MR, CAD, renal artery stenosis, descending thoracic and abdominal aortic aneurysm, admitted for a small bowel obstruction. SBO - noted on CT A/P without specific transition point - NG tube, NPO, bowel rest - appreciate surgical team input. currently conservative management - zofran prn ESRD - hyperkalemic without symptoms or EKG changes - Cr elevated to 8.15 - keep schedule for MWF dialysis - appreciate recommendations and support from Nephrology, follows with Dr. Kaur - minimal UOP, fluid restriction, CAD - Stent to circumflex placed 07/02/20 - cont DAPT, statin Chronic Medical Conditions - Anx/Dep: cont buspar - Neuropathy: cont gabapentin - HTN: cont metoprolol - Chronic Pain: fentanyl patch, PRN percocet DVT ppx: heparin Sq bid FEN/GI: dialysis diet, fluid restriction, lansoprazole Code Status: Full Code Dispo: Med/Surg (2) Chronic diastolic CHF (congestive heart failure): (3) Pulmonary hypertension: (4) Mitral regurgitation: (5) CAD (coronary artery disease): (6) GERD (gastroesophageal reflux disease): (7) H/O colectomy: (8) Abdominal aortic aneurysm: (9) Renal artery stenosis: (10) Hypertension: (11) Peripheral neuropathy: (12) Fibromyalgia: (13) Anemia: (14) ESRD (end stage renal disease) on dialysis: (15) Dyslipidemia: (16) 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 She has a hx of colon removal? in [facility] in the 1980s, has not had small bowel obstruction in the interim. States that yesterday morning she started having diarrhea that was abnormal for her, that progressed to include nausea and vomiting. Has not been able to keep much fluid down, unable to eat anything. Unable to pass gas after last diarrheal movement. Primary Care Provider: Johnny Rai MD Allergies Allergy/AdvReac Type Severity Reaction Status Date / Time hydrocodone Allergy Intermediate RASH, HIVES Verified 08/11/20 00:25 Sulfa (Sulfonamide AdvReac Intermediate "SULFA Verified 08/11/20 00:25 Antibiotics) DRUGS": N/V hydrochlorothiazide AdvReac Mild GI Verified 08/11/20 00:25 SYMPTOMS,NAUSEA AND VOMITING spironolactone AdvReac Mild GI Verified 08/11/20 00:25 SYMPTOMS,NAUSEA AND VOMITING Home Medications Medication Instructions Recorded Confirmed Type cholecalciferol (vitamin D3) 50 2,000 units PO QAM 10/16/18 08/11/20 History mcg (2,000 unit) capsule coenzyme Q10 200 mg capsule 200 mg PO QAM cap 10/31/18 08/11/20 History exemestane 25 mg tablet 25 mg PO DAILY@1200 tab 10/31/18 08/11/20 History aspirin [Enteric Coated Aspirin] 81 mg PO HS 01/23/19 08/11/20 History clopidogrel 75 mg tablet 75 mg PO QAM #90 tab 12/29/19 08/11/20 Rx metoprolol succinate 50 mg 50 mg PO HS #90 tab 01/16/20 08/11/20 Rx tablet,extended release 24 hr amlodipine 10 mg PO QAM 02/27/20 08/11/20 History rosuvastatin 10 mg tablet 10 mg PO HS #90 tab 04/08/20 08/11/20 Rx lansoprazole 30 mg capsule,delayed 30 mg PO DAILY #30 cap 06/03/20 08/11/20 Rx release ondansetron 4 mg disintegrating 4 mg PO Q6H PRN #90 tab 06/03/20 08/11/20 Rx tablet acetaminophen 650 mg PO Q4H PRN #30 tab 07/03/20 08/11/20 Rx methadone 5 mg tablet 2.5 mg PO BID 30 Days #30 tab 07/27/20 08/11/20 Rx buspirone 5 mg PO DAILY PRN 08/09/20 08/11/20 History gabapentin 200 mg PO HS 08/09/20 08/11/20 History Past Med/Surg History Medical History AAA (abdominal aortic aneurysm) PCP monitoring. "Mild fusiform aneurysmal dilatation of the distal thoracic and abdominal aorta." per 02/27/[address] CAD (coronary artery disease) Severe multivessel coronary artery diseaseoccluded distal right, occluded distal circumflex, 90% focal stenosis in mid circumflex into OM1 - follows with Dr. Pfeiffer Cancer of left breast, stage 1 (07/23/15) Chronic diastolic CHF (congestive heart failure) Degenerative joint disease, multiple joints on both sides of body Dyslipidemia ESRD (end stage renal disease) on dialysis started dialysis 12/[address] - [facility] - follows with Dr. Kaur Fibromyalgia GERD (gastroesophageal reflux disease) History of breast cancer Lt lumpectomy/chemo/radiation 2016 History of femoral angiogram History of myocardial infarction silent -- informed in 2018 of evidence of previous PR History of skin cancer removed History of stent insertion of renal artery Lt History of ulcerative colitis Hypertension Mitral regurgitation Osteoarthritis PAD (peripheral artery disease) Peripheral neuropathy Right renal artery stenosis h/o failed attempt to stent Rt renal artery per pt - atheroemboli to her feet and kidneys Small bowel obstruction Spinal stenosis Surgical History History of anesthesia reaction "easy to put out and hard to wake up" History of breast biopsy History of cardiac catheterization 2017 [place] -abn stress test - no stents History of colectomy No colostomy, anastamosis of small bowel. History of colonoscopy History of esophagogastroduodenoscopy (EGD) History of lumpectomy of left breast History of vascular access device temporary dialysis catheter to Rt chest History of vascular surgery 03/22/2020 DR Pfeiffer [facility] stents to BLLE Family History Mother Colon cancer Cardiac disorder Hypertension Father Colon cancer Cardiac disorder Cancer Family/Other Coronary arteriosclerosis Other No family history of adverse response to anesthesia Social History Smoking Status: Never smoker Second Hand Exposure: No; Hx Alcohol Use: No Hx Substance Use: No Preferred Language: Swedish Communication Ability: Effective Wet End Helper Required: No Beliefs That Will Affect Care: None marital status: Current Living Situation: Spouse current occupational status: retired How many Children do You have: 1 How many Children do You have Comment: not local. able to assist with care as needed. Feels Safe at Home: Yes Diet Comment: renal diet during the past year weight has: decreased > 10 lbs Assistive Devices: Walker Review of Systems Constitutional: no fever, no chills, no sweats and no fatigue Eyes: no blind spots and no discharge Ear, Nose, Mouth, Throat: no hearing loss and no nasal congestion Respiratory: no cough and no dyspnea Cardiovascular: no chest pain, no dyspnea on exertion and no edema Gastrointestinal: + abdominal pain, + nausea, + vomiting and + diarrhea/loose stools; no constipation and no blood in stools Genitourinary: no dysuria Musculoskeletal: no joint pain and no myalgia Neurologic: no tingling, no numbness and no headache(s) Endocrine: no fatigue Physical Exam Physical Exam: Constitutional: thin elderly woman laying in bed under multiple blankets in no acute distress Eyes: EOMI, pupils equal and reactive bilaterally, no scleral icterus Cardiac: RRR, no murmurs, gallops or rubs. Normal S1, S2 Pulm: CTA BL, no wheezes, rhonchi, crackles or rubs, moving air well throughout both lungs Abd: soft, distended, extremely tender to palpation in epigastrium, RUQ, RLQ, hypoactive bowel sounds, no rebound or guarding Extremities: 2+ peripheral pulses, no edema Feet: large black ischemic section of right great toe that is chronic Neuro: no focal deficits, moving all 4 limbs, A&Ox3 Results & Data Results & Data ([facility]) Vital Signs (Past 12 Hours) Vital Signs Temp Pulse Pulse Resp BP BP Pulse Ox 08/09/20 01:20 85 18 127/78 96 08/09/20 01:00 90 20 95 08/09/20 00:00 90 22 142/84 H 95 08/08/20 23:00 86 23 110/76 97 08/08/20 20:51 36.6 C 95 H 18 111/78 99 Laboratory Results WBC 6.84 K/uL (4.8-10.8) 08/08/20 22:38 RBC 3.74 M/uL (4.2-5.4) L 08/08/20 22:38 Hgb 11.3 g/dL (12.0-16.0) L 08/08/20 22:38 Hct 35.9 % (37-47) L 08/08/20 22:38 MCV 96.0 fL (80-100) 08/08/20 22:38 MCH 30.2 pg (25-34) 08/08/20 22:38 MCHC 31.5 g/dL (32-36) L 08/08/20 22:38 RDW Std Deviation 56.3 fL (36.4-46.3) H 08/08/20 22:38 RDW Coeff of Max 15.9 % (11.5-14.5) H 08/08/20 22:38 Plt Count 357 K/uL (130-400) 08/08/20 22:38 MPV 9.5 fL (7.4-10.4) 08/08/20 22:38 Immature Gran % (Auto) 0.1 % 08/08/20 22:38 Neut % (Auto) 75.1 % 08/08/20 22:38 Lymph % (Auto) 11.0 % 08/08/20 22:38 Williamson % (Auto) 13.6 % 08/08/20 22:38 Eos % (Auto) 0.1 % 08/08/20 22:38 Baso % (Auto) 0.1 % 08/08/20 22:38 Neut # (Auto) 5.13 K/uL (1.4-6.5) 08/08/20 22:38 Lymph # (Auto) 0.75 K/uL (1.2-3.4) L 08/08/20 22:38 Williamson # (Auto) 0.93 K/uL (0.11-0.59) H 08/08/20 22:38 Eos # (Auto) 0.01 K/uL (0-0.5) 08/08/20 22:38 Baso # (Auto) 0.01 K/uL (0-0.2) 08/08/20 22:38 Immature Gran # (Auto) 0.01 K/uL (0.00-0.02) 08/08/20 22:38 Sodium 131 mmol/L (136-145) L 08/08/20 22:38 Potassium 6.4 mmol/L (3.5-5.1) H* 08/08/20 22:38 Chloride 91 mmol/L (98-107) L 08/08/20 22:38 Carbon Dioxide 28 mmol/L (21-32) 08/08/20 22:38 Anion Gap 12.0 (3-11) H 05/16/21 22:38 BUN 45 mg/dl (7-18) H 08/08/20 22:38 Creatinine 8.15 mg/dl (0.6-1.2) H* 08/08/20 22:38 Est Cr Clr Drug Dosing 3.5 ml/min 08/08/20 22:38 Est GFR ( Amer) 4.8 ml/min 08/08/20 22:38 Est GFR (Non-Af Amer) 4.1 ml/min 08/08/20 22:38 BUN/Creatinine Ratio 5.4 (10-20) L 08/08/20 22:38 Glucose 111 mg/dl (70-99) H 08/08/20 22:38 Lactate 2.8 mmol/L (0.4-2.0) H* 08/08/20 22:38 Calcium 9.7 mg/dl (8.5-10.1) 08/08/20 22:38 Total Bilirubin 0.4 mg/dl (0.2-1) 08/08/20 22:38 AST 10 U/L (15-37) L 08/08/20 22:38 ALT 9 U/L (12-78) L 08/08/20 22:38 Alkaline Phosphatase 63 U/L (45-117) 08/08/20 22:38 Total Protein 8.2 gm/dl (6.4-8.2) 08/08/20 22:38 Albumin 3.2 gm/dl (3.4-5.0) L 08/08/20 22:38 Globulin 5.0 gm/dl (2.5-4.0) H 08/08/20 22:38 Albumin/Globulin Ratio 0.6 (0.9-2) L 08/08/20 22:38 Lipase 97 U/L (73-393) 08/08/20 22:38 COVID-19 Eval Order Covid19 at [facility] 08/09/20 00:57 SARS-CoV-2 (PCR) NEGATIVE (Negative) 08/09/20 00:57 Supervising Physician Co-Signing Physician Notes Attending addendum: I have physically seen this patient, have supervised the medical residents activities, and agree with the H&P unless as otherwise noted. Assessment and Plan: Small bowel obstruction- Conservative treatment NG tube low intermittent suction NPO Famotidine 20 mg IV every 12 hours Zofran 4 mg IV every 6 hours as needed Zosyn 3.375 mg IV every 12 hours Surgery will follow ESRD on HD- Sunday, Sunday, Sunday dialysis Consult nephrology Dr. Kaur Remaining orders and notations as noted Resident Activity Tracking Resident Involvement: Resident Care Provided Care Provided: Adult [facility] Medicine (1) CAD (coronary artery disease) Associated angina: without angina Coronary Disease-Associated Artery/Lesion type: [place] artery [place] vs. transplanted heart: [place] heart Qualified Code(s): I25.10 - Atherosclerotic heart disease of [place] coronary artery without angina pectoris (2) Abdominal aortic aneurysm Presence of rupture: without rupture Qualified Code(s): I71.4 - Abdominal aortic aneurysm, without rupture (3) Anemia Anemia type: unspecified type Qualified Code(s): D64.9 - Anemia, unspecified (4) GERD (gastroesophageal reflux disease) Esophagitis presence: esophagitis presence not specified Qualified Code(s): K21.9 - Gastro-esophageal reflux disease without esophagitis (5) Hypertension Hypertension type: renovascular hypertension Qualified Code(s): I15.0 - Renovascular hypertension
[2020-08-09] MEDS ORDERED: busPIRone 5 MG TAB PO PRN (03:50)
[2020-08-09] MEDS ORDERED: fentaNYL citrate 100 MCG/2 ML VIAL IV PRN (03:50)
[2020-08-09] MEDS ORDERED: ACETAMINOPHEN 325 MG TAB PO PRN (03:50)
[2020-08-09] MEDS: SODIUM CHLORIDE 0.9% 1000ML 1,000 ML IV SCH ×2 (03:57→16:10)
[2020-08-09] MEDS ORDERED: oxyCODONE/ACETAMINOPHEN 5mg/325mg TAB PO PRN (04:40)
[2020-08-09] MEDS ORDERED: fentaNYL 12 MCG/HR TDSY TD SCH (06:00)
[2020-08-09 06:08] LABS: Basophils # (auto) 0.01 K/uL (0-0.2); Basophils % (auto) 0.2 %; Eosinophils # (auto) 0.01 K/uL (0-0.5); Eosinophils % (auto) 0.2 %; Hematocrit (blood only) 35.7 % (37-47); Hemoglobin 11.5 g/dL (12.0-16.0); Immature Granulocytes # (auto) 0.03 K/uL (0.00-0.02); Immature Granulocytes % (auto) 0.5 %; Lymphocytes # (auto) 0.98 K/uL (1.2-3.4); Lymphocytes % (auto) 14.8 %; Mean Corpuscular Hemoglobin 30.4 pg (25-34); Mean Corpuscular Hgb Conc 32.2 g/dL (32-36); Mean Corpuscular Volume 94.4 fL (80-100); Mean Platelet Volume 9.3 fL (7.4-10.4); Monocytes # (auto) 0.91 K/uL (0.11-0.59); Monocytes % (auto) 13.7 %; Neutrophils % (auto) 70.6 %; Platelet Count 359 K/uL (130-400); RDW Coefficient of Variation 15.8 % (11.5-14.5); RDW Standard Deviation 55.2 fL (36.4-46.3); Red Blood Count 3.78 M/uL (4.2-5.4); White Blood Count 6.64 K/uL (4.8-10.8)
[2020-08-09 06:54] LABS: Albumin Globulin Ratio 0.7 (0.9-2); Albumin Level 3.2 gm/dl (3.4-5.0); Bilirubin,Total 0.5 mg/dl (0.2-1); Calcium 9.5 mg/dl (8.5-10.1); Creatinine Clr Calc Pharmacy 3.7 ml/min; Est GFR (African American) 4.6 ml/min; Globulin 4.7 gm/dl (2.5-4.0); Potassium 5.4 mmol/L (3.5-5.1); Total Protein 7.9 gm/dl (6.4-8.2)
[2020-08-09] MEDS ORDERED: CHECK fentaNYL PATCH PLACEMENT SCH (08:00)
--- NOTE | 2020-08-09 08:11 | Surgery Progress Note ---
Date of Service August 09, 2020 Assessment & Plan (1) Small bowel obstruction: cont NGT can have ice Admission and Anticipated Discharge Date Admission Date: August 09, 2020 Subjective some nausea this morning, overall better after NG, no flatus Physical Exam Gastrointestinal (Abdomen): Inspection/Auscultation: + abdomen distended (slight) Percussion/Palpation: + abdomen tender (mild RLQ) and abdomen soft Results & Data ([facility]) Vital Signs (Past 12 Hours) Vital Signs Temp Pulse Pulse Pulse Resp BP BP 08/09/20 07:39 36.9 C 106 H 15 136/84 08/09/20 03:05 95 H 16 134/75 08/09/20 03:00 36.8 C 61 18 148/91 H 08/09/20 02:00 97 H 18 152/100 H 08/09/20 01:20 85 18 127/78 08/09/20 01:00 90 20 08/09/20 00:00 90 22 142/84 H 08/08/20 23:00 86 23 110/76 08/08/20 20:51 36.6 C 95 H 18 111/78 Pulse Ox 08/09/20 07:39 95 08/09/20 03:05 96 08/09/20 03:00 91 08/09/20 02:00 95 08/09/20 01:20 96 08/09/20 01:00 95 08/09/20 00:00 95 08/08/20 23:00 97 08/08/20 20:51 99 PG Care Time/CCT Total # of Minutes Spent Total Time Spent with Patient: Total time spent is greater than 50% in coordination of care (as documented) at patient's floor/unit and/or counseling patient: Coding Level of Care Code None Diagnoses Small bowel obstruction K56.609
--- NOTE | 2020-08-09 08:14 | CT Scan Report ---
CT SCAN OF THE ABDOMEN AND PELVIS WITH IV CONTRAST CLINICAL HISTORY: Right lower quadrant abdominal pain. Abdominal distention. COMPARISON STUDY: Abdominal CT dated 02/27/2020. TECHNIQUE: Following the IV administration of 87 cc of Optiray 300, CT scan of the abdomen and pelvi s is performed from the lung bases to the proximal femora. Images are reviewed in the axial, sagittal , and coronal planes. IV contrast was administered without complication. Oral contrast was utilized. A dose lowering technique was utilized adhering to the principles of ALARA. CT DOSE: 255.87 mGy.cm FINDINGS: Lung bases: The heart is mildly enlarged and without pericardial effusion. There is aneurysmal dilata tion of the descending thoracic aorta which measures up to 4.3 cm in diameter. This is similar to pre vious. The lung bases are clear noting dependent atelectasis. Dermal thickening and a wound are sugge sted in the left breast. A small fluid collection is noted in the left breast on image #18 measuring up to 1.5 cm. There is a small hiatal hernia. Liver: The contrast-enhanced liver is normal in size, contour, and attenuation. There is no intrahepa tic biliary ductal dilatation. The hepatic veins and portal veins are patent. Gallbladder: Unremarkable. Spleen: Normal in size and attenuation. Pancreas: Moderately atrophic and grossly unremarkable. Adrenal glands: Unremarkable. Kidneys: The contrast enhanced kidneys are atrophic and without hydronephrosis. The kidneys enhance s ymmetrically. Abdominal vasculature: There is advanced atherosclerotic change throughout the abdominal aorta with d iffuse aneurysmal dilatation. The proximal abdominal aorta measures up to 3.7 cm. An aneurysm of the distal abdominal aorta measures 3.7 x 3.6 cm. The abdominal aorta is patent with no evidence of disse ction. Advanced atherosclerotic plaque is noted in the iliac and common femoral arteries. Bowel: The colon appears foreshortened suggesting at least partial resection. The colon is decompress ed, as are the distal small bowel loops. The proximal small bowel is markedly distended and fluid-bandar led, measuring up to 4.2 cm in diameter. This is consistent with a small bowel obstruction. A transit ion point is suggested in the posterior right lower quadrant on image #201. Interloop fluid is noted. No focally thick walled bowel loops identified. There is no pneumatosis intestinalis or portal venou s gas. The appendix is not identified and reported surgically absent. Peritoneum: There is no intraperitoneal free air or abdominal ascites. Lymphadenopathy: None. Pelvic viscera: The bladder is decompressed and grossly unremarkable. The uterus and adnexa are breonna l as visualized. Skeletal structures: The skeletal structures are osteopenic. There is moderate lumbosacral spondylosi s. There is a chronic superior endplate compression deformity of T9. No lytic or blastic lesions are seen. IMPRESSION: 1. Findings are consistent with a high-grade small bowel obstruction. A transition point is suggested in the right lower quadrant. 2. Interloop fluid is noted. No intraperitoneal free air is identified. There are no focally thick wa lled bowel loops, pneumatosis intestinalis, or portal venous gas. 3. Advanced atheromatous change and aneurysmal dilatation is seen throughout the imaged descending th oracic aorta as well as the abdominal aorta. 4. Dermal thickening and a wound/postoperative change is suggested in the breast with a 1.5 cm fluid collection. Correlation with clinical findings and the patient's medical/surgical history will be req uired. 5. Cardiomegaly. 6. Additional findings as above. ACT 112: Negative or not required by law. Electronically signed by: Amado Goode M.D. 08/09/2020 8:13 AM
--- NOTE | 2020-08-09 08:33 | Medical Student Progress Note ---
Date of Service August 09, 2020 Assessment & Plan (1) Small bowel obstruction: Adriana Arnett is a 80 yo female with an extensive PMH including ESRD for which she is on dialysis, h/o of colectomy and appendectomy, peripheral artery disease with ulceration, CAD, and abdominal aortic aneurysm, who was admitted for small bowel obstruction. 1) SBO Noted on CT -- transition point in the RLQ. -Ice chips permitted by surgery -NG tube, bowel rest -currently conservative management -ondansetron PRN -will trial NG clamping in afternoon, with gradual diet progression as tolerated. 2) ESRD -Cr elevated to 8.4 from 8.1 yesterday. -Keep MWF schedule for dialysis -appreciate recommendations and support from nephrology, follows with Dr. Kaur 3) CAD - Stent to circumflex placed 07/02/20 - cont DAPT, statin 4) Ischemic Ulcers on toes of both feet Secondary to peripheral artery disease. -Pain control Chronic Medical Conditions - Anx/Dep: cont buspirone - Neuropathy: cont gabapentin - HTN: cont metoprolol - Chronic Pain: fentanyl , PRN percocet DVT ppx: heparin Sq bid FEN/GI: dialysis diet, fluid restriction, lansoprazole Code Status: Full Code Dispo: Med/Surg (2) Chronic diastolic CHF (congestive heart failure): (3) CAD (coronary artery disease): Associated angina: without angina Coronary Disease-Associated Artery/Lesion type: [place] artery [place] vs. transplanted heart: [place] heart Qualified Code(s): I25.10 - Atherosclerotic heart disease of [place] coronary artery without angina pectoris (4) ESRD (end stage renal disease) on dialysis: (5) Ischemic ulcer of toes on both feet: Supervising Attestation Patient seen and examined with [facility] [place] Price and PGY-2 Dr. Escobar. Agree with history, exam findings, assessment and plan of care as outlined with the following updates: In brief, Ms. Arnett is an 80 year old female with histoyr of ESRD on HD, CAD, chronic pain and past colectomy for ulcerative colitis admitted with a small bowel obstruction. NGT placed in ED. She is seen today during dialysis. Some intermittent nausea. No emesis. Continues to have R-sided abdominal pain. H aving pain in the toes at the site of prior ischemic ulcers---this is chronic. Did have a stent placed in the lower extremity. Non-toxic appearing. Decreased bowel sounds. Abdomen is soft, non-distended. Tenderness in the RUQ. No rebound. Ischemic ulcers on the tips of toes. Foot is warm. +1 dorsalis pedis pulses, +1 tibial pulses. 1. SBO. Was not able to tolerate trial of clamping due to nausea. Back to low, intermittent wall suction. Ice chips. Ok for mouth swabs. Gentle IVFs at 80/h. Appreciate surgery recommendations. 2. ESRD on HD, MWF. Appreciate nephrology recommendations 3. CAD/PAD. Recent cardiac stent. Ischemic ulcers on toes. Low suspicion for acute ischemia. Already medically optimized. Wound care consult--appreciate recommendations 4. Chronic pain. Followed by palliative in the outpatient setting. Pt is concerned about drowsiness related to fentanyl and methadone. Would prefer to stick with tylenol and tramadol. Ok for IV tylenol. Once she is able to take PO, can consider restarting tramadol. Dipso: pending resolution of SBO and advancement of diet. Subjective Pt is a 80 yo female with an extensive past pmh including ESRD for which she is on dialysis, h/o of colectomy, peripheral artery disease with ulceration, CAD, NV, AAA, and breast cancer, who was admitted for small bowel obstruction. Yesterday the pt presented to the ER for abdominal pain, diarrhea, nausea, and vomiting. CT she was found to have bowel obstruction in the posterior right lower quadrant. An NG was inserted and patient put on NPO. Since the NG tube was placed, pt received fentanyl for pain which she knows to make her excessively tired. Tod, pt reports minimal pain with pt returning to a 5 or 6 when "they poke around". She is still nausea but has had no bouts of emesis this morning. Her mouth is very dry and she asked about water to rinse with or ice chips. Additionally, she has had increased pain of her ischemic ulcers located on the tips of her toes. She asked if there is something that could be done for those. Finally, she is due for her dialysis today. Her last dialysis was Sunday on her regular schedule of MWF. She reports some urinary urgency but with no output. Review of Systems Constitutional: + malaise and + daytime sleepiness; no fever Ear, Nose, Mouth, Throat: + dry mouth Respiratory: no dyspnea Gastrointestinal: + abdominal pain and + nausea; no heartburn and no vomiting Genitourinary: + urinary urgency Integumentary: + sores Neurologic: no headache(s) Physical Exam Physical Exam: On physical exam, the patient was alert and cooperative albeit visibly tired. Cardio: Tachycardic with regular rhythm, no rubs mummers or gallops appreciated on exam. Pulm: Normal respiratory effort, CTA Abd: Non-distended, absent bowel sounds, tender to palpation especially in RUQ. Neruo/MSK: Able to move all extremities. Skin: Ischemic ulcers on right and left feet on the tip of the toes. Vital Signs Temp 36.9 C 08/09/20 07:39 Pulse 106 H 08/09/20 07:39 Resp 15 08/09/20 07:39 BP 136/84 08/09/20 07:39 Pulse Ox 95 08/09/20 07:39 Intake & Output 08/08/20 08/09/20 08/09/20 18:59 06:59 18:59 Intake Total 745.833 / 745.833 Output Total 1210 / 1210 Balance -464.167 / -464.16 7 Weight 45.9 kg Intake: IV 745.833 / 745.833 Acetaminophen 1,000 mg In 100 100 / 100 ml @ 400 mls/h r IV NOW STA Rx#: [id number] Sodium Chlorid e 0.9% 1000ML 1, 645.833 / 645.833 000 ml @ 80 ml s/hr IV .[id number] [facility] Rx#:[id number] Output: Emesis 1000 / 1000 Gastric Drainage 210 / 210 Right Nare 210 / 210 Other: # Emeses 1 Weight Measureme nt Method Built in [facility] Results & Data ([facility]) Vital Signs (Past 12 Hours) Vital Signs Temp Pulse Pulse Pulse Resp BP BP 08/09/20 07:39 36.9 C 106 H 15 136/84 08/09/20 03:05 95 H 16 134/75 08/09/20 03:00 36.8 C 61 18 148/91 H 08/09/20 02:00 97 H 18 152/100 H 08/09/20 01:20 85 18 127/78 08/09/20 01:00 90 20 08/09/20 00:00 90 22 142/84 H 08/08/20 23:00 86 23 110/76 08/08/20 20:51 36.6 C 95 H 18 111/78 Pulse Ox 08/09/20 07:39 95 08/09/20 03:05 96 08/09/20 03:00 91 08/09/20 02:00 95 08/09/20 01:20 96 08/09/20 01:00 95 08/09/20 00:00 08/08/20 23:00 97 08/08/20 20:51 99 Laboratory Results 08/09/20 08/09/20 08/09/20 Range/Units 05:57 05:57 05:57 WBC 6.64 (4.8-10.8) K/uL RBC 3.78 L (4.2-5.4) M/uL Hgb 11.5 L (12.0-16.0) g/dL Hct 35.7 L (37-47) % MCV 94.4 (80-100) fL MCH 30.4 (25-34) pg MCHC 32.2 (32-36) g/dL RDW Std Deviation 55.2 H (36.4-46.3) fL RDW Coeff of Max 15.8 H (11.5-14.5) % Plt Count 359 (130-400) K/uL MPV 9.3 (7.4-10.4) fL Immature Gran % (Auto) 0.5 % Neut % (Auto) 70.6 % Lymph % (Auto) 14.8 % [place] % (Auto) 13.7 % Eos % (Auto) 0.2 % Baso % (Auto) 0.2 % Neut # (Auto) 4.70 (1.4-6.5) K/uL Lymph # (Auto) 0.98 L (1.2-3.4) K/uL [place] # (Auto) 0.91 H (0.11-0.59) K/uL Eos # (Auto) 0.01 (0-0.5) K/uL Baso # (Auto) 0.01 (0-0.2) K/uL Immature Gran # (Auto) 0.03 H (0.00-0.02) K/uL Sodium 127 L (136-145) mmol/L Potassium 5.4 H D (3.5-5.1) mmol/L Chloride 89 L (98-107) mmol/L Carbon Dioxide 28 (21-32) mmol/L Anion Gap 10.0 (3-11) BUN 51 H (7-18) mg/dl Creatinine 8.44 H* (0.6-1.2) mg/dl Est Cr Clr Drug Dosing 3.7 ml/min Est GFR ( Amer) 4.6 ml/min Est GFR (Non-Af Amer) 4.0 ml/min BUN/Creatinine Ratio 6.0 L (10-20) Glucose 117 H (70-99) mg/dl Lactate 2.0 (0.4-2.0) mmol/L Calcium 9.5 (8.5-10.1) mg/dl Total Bilirubin 0.5 (0.2-1) mg/dl AST 7 L (15-37) U/L ALT 7 L (12-78) U/L Alkaline Phosphatase 63 (45-117) U/L Total Protein 7.9 (6.4-8.2) gm/dl Albumin 3.2 L (3.4-5.0) gm/dl Globulin 4.7 H (2.5-4.0) gm/dl Albumin/Globulin Ratio 0.7 L (0.9-2) Lipase (73-393) U/L COVID-19 Eval Order SARS-CoV-2 (PCR) (Negative) 08/09/20 08/09/20 08/08/20 Range/Units 00:57 00:57 22:38 WBC (4.8-10.8) K/uL RBC (4.2-5.4) M/uL Hgb (12.0-16.0) g/dL Hct (37-47) % MCV (80-100) fL MCH (25-34) pg MCHC (32-36) g/dL RDW Std Deviation (36.4-46.3) fL RDW Coeff of Max (11.5-14.5) % Plt Count (130-400) K/uL MPV (7.4-10.4) fL Immature Gran % (Auto) % Neut % (Auto) % Lymph % (Auto) % [place] % (Auto) % Eos % (Auto) % Baso % (Auto) % Neut # (Auto) (1.4-6.5) K/uL Lymph # (Auto) (1.2-3.4) K/uL [place] # (Auto) (0.11-0.59) K/uL Eos # (Auto) (0-0.5) K/uL Baso # (Auto) (0-0.2) K/uL Immature Gran # (Auto) (0.00-0.02) K/uL Sodium (136-145) mmol/L Potassium (3.5-5.1) mmol/L Chloride (98-107) mmol/L Carbon Dioxide (21-32) mmol/L Anion Gap (3-11) BUN (7-18) mg/dl Creatinine (0.6-1.2) mg/dl Est Cr Clr Drug Dosing ml/min Est GFR ( Amer) ml/min Est GFR (Non-Af Amer) ml/min BUN/Creatinine Ratio (10-20) Glucose (70-99) mg/dl Lactate 2.8 H* (0.4-2.0) mmol/L Calcium (8.5-10.1) mg/dl Total Bilirubin (0.2-1) mg/dl AST (15-37) U/L ALT (12-78) U/L Alkaline Phosphatase (45-117) U/L Total Protein (6.4-8.2) gm/dl Albumin (3.4-5.0) gm/dl Globulin (2.5-4.0) gm/dl Albumin/Globulin Ratio (0.9-2) Lipase (73-393) U/L COVID-19 Eval Order Covid19 at [facility] SARS-CoV-2 (PCR) NEGATIVE (Negative) 08/08/20 08/08/20 Range/Units 22:38 22:38 WBC 6.84 (4.8-10.8) K/uL RBC 3.74 L (4.2-5.4) M/uL Hgb 11.3 L (12.0-16.0) g/dL Hct 35.9 L (37-47) % MCV 96.0 (80-100) fL MCH 30.2 (25-34) pg MCHC 31.5 L (32-36) g/dL RDW Std Deviation 56.3 H (36.4-46.3) fL RDW Coeff of Max 15.9 H (11.5-14.5) % Plt Count 357 (130-400) K/uL MPV 9.5 (7.4-10.4) fL Immature Gran % (Auto) 0.1 % Neut % (Auto) 75.1 % Lymph % (Auto) 11.0 % [place] % (Auto) 13.6 % Eos % (Auto) 0.1 % Baso % (Auto) 0.1 % Neut # (Auto) 5.13 (1.4-6.5) K/uL Lymph # (Auto) 0.75 L (1.2-3.4) K/uL [place] # (Auto) 0.93 H (0.11-0.59) K/uL Eos # (Auto) 0.01 (0-0.5) K/uL Baso # (Auto) 0.01 (0-0.2) K/uL Immature Gran # (Auto) 0.01 (0.00-0.02) K/uL Sodium 131 L (136-145) mmol/L Potassium 6.4 H* (3.5-5.1) mmol/L Chloride 91 L (98-107) mmol/L Carbon Dioxide 28 (21-32) mmol/L Anion Gap 12.0 H (3-11) BUN 45 H (7-18) mg/dl Creatinine 8.15 H* (0.6-1.2) mg/dl Est Cr Clr Drug Dosing 3.5 ml/min Est GFR ( Amer) 4.8 ml/min Est GFR (Non-Af Amer) 4.1 ml/min BUN/Creatinine Ratio 5.4 L (10-20) Glucose 111 H (70-99) mg/dl Lactate (0.4-2.0) mmol/L Calcium 9.7 (8.5-10.1) mg/dl Total Bilirubin 0.4 (0.2-1) mg/dl AST 10 L (15-37) U/L ALT 9 L (12-78) U/L Alkaline Phosphatase 63 (45-117) U/L Total Protein 8.2 (6.4-8.2) gm/dl Albumin 3.2 L (3.4-5.0) gm/dl Globulin 5.0 H (2.5-4.0) gm/dl Albumin/Globulin Ratio 0.6 L (0.9-2) Lipase 97 (73-393) U/L COVID-19 Eval Order SARS-CoV-2 (PCR) (Negative)
[2020-08-09] MEDS ORDERED: NON-FORMULARY MEDICATION (Coenzyme Q10 200 mg capsule) PO SCH (09:00)
[2020-08-09] MEDS: CHOLECALCIFEROL 1,000 UNITS 25 MCG TAB PO SCH (10:03)
[2020-08-09] MEDS: LANSOPRAZOLE 30 MG SOLTAB PO SCH (10:03)
[2020-08-09] MEDS: amLODIPine BESYLATE 5 MG TAB PO SCH (10:03)
[2020-08-09] MEDS: GABAPENTIN 100 MG CAP PO SCH (10:03)
[2020-08-09] MEDS: CLOPIDOGREL BISULFATE 75 MG TAB PO SCH (10:03)
[2020-08-09] MEDS: HEPARIN SOD 5,000 UNIT/0.5 ML VIAL SQ SCH ×2 (10:03→21:46)
[2020-08-09] MEDS ORDERED: HEPARIN SOD (PORCINE) 1000 UNIT/ML IV ONE (10:53)
[2020-08-09] MEDS ORDERED: SODIUM CHLORIDE 0.9% 1000ML 1,000 ML IV PRN (10:53)
[2020-08-09 11:54] LABS: Appearance Urine Clear (Clear); Bilirubin Urine Negative (Negative); Blood Urine Negative (Negative); Color Urine Yellow; Epithelial Cell Urine Auto >30 /lpf (0-5); Glucose Urine UA Negative (Negative); Ketones Urine Trace (Negative); Leukocyte Esterase Urine Trace (Negative); Nitrite Urine Negative (Negative); Protein Urine 2+ (Negative); RBC Urine Automated 0-4 /hpf (0-4); Specific Gravity Urine 1.037 (1.000-1.030); Urobilinogen Urine Negative (Negative)
--- NOTE | 2020-08-09 12:04 | Nephrology Consultation ---
Date of Consultation August 09, 2020 Assessment & Plan (1) ESRD (end stage renal disease) on dialysis: Mrs. 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 Her renal function never improved. She continues to have painful lesions on her toes. Purely from the standpoint of her end-stage renal disease, she does appear to be stable. For now, we will put in her routine dialysis orders for her treatment that would be due today. Her acute medical issue is 1 of an apparent high-grade small bowel obstruction. She has a history of having had a colectomy for ulcerative colitis at the [facility] about 40 years ago. Currently, she is comfortable with an NG tube. Obviously, we will need to follow her to see if decompression alone will resolve her issue. If not, surgical intervention may be necessary. Appropriate consultations have been placed. She is already seeing palliative care because of her chronic pain syndrome. Unfortunately, her medical issues continued amount. She has obviously severe generalized vascular disease and a history of breast cancer in addition to her end-stage renal disease. I will continue to follow her with you and arrange for her necessary dialysis treatments. (2) Small bowel obstruction: History of Present Illness Reason for Consultation: ESRD History of Present Illness Mrs. Arnett is an 80-year-old woman admitted early this morning with symptoms of right lower quadrant pain, nausea and vomiting. Her emergency room work-up was consistent with a high-grade small bowel obstruction with a transition point likely in the right lower quadrant. She has end-stage renal disease. I have followed Mrs. Arnett since 2011. She was initially referred to me by Dr. Johnny Rai because of concern about renal artery stenosis. She had been hospitalized at the [facility] with an episode of chest discomfort. At that time, she had a negative stress test. Her evaluation included a CT angiogram of her chest, abdomen and pelvis. That was unremarkable with the exception of chronic atherosclerotic vascular disease and changes consistent with a tight left renal artery stenosis. I referred her to the [facility] where she underwent an angiogram of her renal arteries. A tight stenosis of the left renal artery was confirmed and she underwent an angioplasty with the deployment of a drug-eluting stent. Since then, she has been on aspirin and clopidogrel and had done quite well. Her blood pressure was controlled. Her serum creatinine, however, remained elevated at about 1.5 mg/Dorene. She was getting regular renal artery duplex scans which showed no evidence of recurrent renal artery stenosis on either side. Her serum creatinine was likewise followed closely. In December 2017, she had a dobutamine stress echocardiogram. It showed a baseline echo with normal left ventricular function and proximal inferior and inferoseptal wall motion abnormalities. She had a negative dobutamine stress echo for ischemia at greater than 100% of her maximum heart rate. A cardiac catheterization was done and showed diffuse disease. However, she was felt not to be a good surgical candidate and was treated medically. Subsequently, she complained about a decrease in her exercise tolerance particularly when attempting to ride her bike. There was concern that it represented angina pectoris and a progression of her previously recognized coronary disease. However, Mrs. Arnett felt that her symptoms might be related to the metoprolol. Therefore, her metoprolol was tapered by cardiology and subsequently discontinued completely. Her dyspnea improved. She was also taking isosorbide mononitrate at the time. She has a longstanding history of hypertension. However, that has been well controlled. She was following a low-sodium diet. She was taking isosorbide as noted. Other medications included losartan 25 mg daily since her original renal artery angioplasty. Even on losartan, her serum creatinine had been stable in the range of 1.5 to 1.8 mg/Dorene. Her urinalysis was normal. She denied symptoms of uremia or volume overload. Other vascular risk factors included a history of hypercholesterolemia that had been controlled with rosuvastatin 10 mg at bedtime. She was also taking co enzyme Q10, 200 mg daily. In 2019, she had a further jump in her serum creatinine. A repeat renal artery duplex showed evidence of right renal artery stenosis. She was referred back to [place]. CO2 angiography was attempted. However, the right renal artery could not be entered. It appeared to be dramatically occluded. During the procedure, she developed severe mid low back pain, weakness and nausea. The procedure was discontinued but she continued to feel poorly. Her serum creatinine began to rise. She was noted to have ischemic changes in her toes. It was felt that her clinical picture was consistent with atheroembolic disease. Her renal function did not recover. She was begun on maintenance dialysis in December 2019. Her vascular access was a tunneled catheter but recently she had the creation of an AV fistula in her right upper arm using a graft. Her dialysis treatments are essentially well controlled. However, she continues to complain of pain in the toes. At the current time, her right great toe and right second toe are markedly ischemic and painful. The fifth toe of her left foot is also significantly ischemic. She has been treated with large doses of narcotic analgesics. However, she is not tolerated them and would prefer to deal with the pain. She has regularly been seen by GI. She has symptoms of GERD. They have been controlled recently with lansoprazole. She also uses Zofran for nausea. Additionally, she has a history of ulcerative pancolitis. That dates back over 40 years. She was seen and evaluated at the [facility]. She had a near total colectomy with an ileorectal anastomosis. Bowel movements since that time have been like "porridge." She has not had hematochezia. For the past 2 weeks or so she has had intermittent left lower quadrant abdominal pain. That pain is subsided. On Sunday night she began to develop more intense right lower quadrant pain. She was having diarrheal stools but no hematochezia. After 3 diarrheal stools she was unable to move her bowels anymore despite having the urge to do so. She went on to develop nausea with vomiting. She was seen in the emergency room. Her evaluation included a CT scan which did show evidence of a high-grade small bowel obstruction with a transition point somewhere in the right lower quadrant which is near her pain. An NG tube was placed and that provided her significant relief. Was also given analgesics. Her other significant medical issue is a history of breast cancer. That seems to be inactive at the current time. She does take exemestane 25 mg daily. The remainder of her past medical history, family history and review of systems is present on prior admissions. There is nothing more to add. She does take her home medications as listed on her admission note. She dialyzes 3 times a week at [facility] in [place]. She dialyzes for 3-1/2 hours using a 160 dialyzer and a 2 potassium 2.5 calcium bath. Her anticoagulation is a single dose of 2000 units of heparin. She is also getting Micera as an erythrocyte stimulating agent. Her home medications include amlodipine 10 mg daily, aspirin 81 mg daily, vitamin D3 50 mcg daily, clopidogrel 75 mg daily, coenzyme Q 10 200 mg daily, exemestane 25 mg daily, gabapentin 100 mg twice daily, metoprolol succinate 50 mg daily, Zofran 4 mg every 6 hours as needed nausea, lansoprazole 30 mg daily, rosuvastatin 10 mg daily, tramadol 100 mg twice daily and a multivitamin. Allergies include hives and a rash from hydrocodone, she also has a history of side effects related to hydrochlorothiazide and spironolactone. The remainder of her review of systems is unremarkable. Allergies Allergy/AdvReac Type Severity Reaction Status Date / Time hydrocodone Allergy Intermediate RASH, HIVES Verified 08/09/20 00:59 Sulfa (Sulfonamide AdvReac Intermediate "SULFA Verified 08/09/20 00:59 Antibiotics) DRUGS": N/V hydrochlorothiazide AdvReac Mild GI Verified 08/09/20 00:59 SYMPTOMS,NAUSEA AND VOMITING spironolactone AdvReac Mild GI Verified 08/09/20 00:59 SYMPTOMS,NAUSEA AND VOMITING Aldactazide AdvReac Unknown GI Unverified 07/24/17 10:20 SYMPTOMS,NAUSEA AND VOMITING Home Medications Medication Instructions Recorded Confirmed Type cholecalciferol (vitamin D3) 50 2,000 units PO QAM 10/16/18 08/09/20 History mcg (2,000 unit) capsule coenzyme Q10 200 mg capsule 200 mg PO QAM cap 10/31/18 08/09/20 History exemestane 25 mg tablet 25 mg PO DAILY@1200 tab 10/31/18 08/09/20 History aspirin [Enteric Coated Aspirin] 81 mg PO HS 01/23/19 08/09/20 History clopidogrel 75 mg tablet 75 mg PO QAM #90 tab 12/29/19 08/09/20 Rx metoprolol succinate 50 mg 50 mg PO HS #90 tab 01/16/20 08/09/20 Rx tablet,extended release 24 hr amlodipine 10 mg PO QAM 02/27/20 08/09/20 History rosuvastatin 10 mg tablet 10 mg PO HS #90 tab 04/08/20 08/09/20 Rx lansoprazole 30 mg capsule,delayed 30 mg PO DAILY #30 cap 06/03/20 08/09/20 Rx release ondansetron 4 mg disintegrating 4 mg PO Q6H PRN #90 tab 06/03/20 08/09/20 Rx tablet acetaminophen 650 mg PO Q4H PRN #30 tab 07/03/20 08/09/20 Rx methadone 5 mg tablet 2.5 mg PO BID 30 Days #30 tab 07/27/20 08/09/20 Rx buspirone 5 mg PO DAILY PRN 08/09/20 08/09/20 History gabapentin 200 mg PO DAILY 08/09/20 08/09/20 History Patient History Medical History (Updated 08/09/20 @ 05:47 by Mavis Penn MD) AAA (abdominal aortic aneurysm) PCP monitoring. "Mild fusiform aneurysmal dilatation of the distal thoracic and abdominal aorta." per 02/27/[address] CAD (coronary artery disease) Severe multivessel coronary artery diseaseoccluded distal right, occluded distal circumflex, 90% focal stenosis in mid circumflex into OM1 - follows with Dr. Pfeiffer Cancer of left breast, stage 1 (07/23/15) Chronic diastolic CHF (congestive heart failure) Degenerative joint disease, multiple joints on both sides of body Dyslipidemia ESRD (end stage renal disease) on dialysis started dialysis 12/2019 - [facility] - follows with Dr. Kaur Fibromyalgia GERD (gastroesophageal reflux disease) History of breast cancer Lt lumpectomy/chemo/radiation 2017 History of femoral angiogram History of myocardial infarction silent -- informed in 2018 of evidence of previous ND History of skin cancer removed History of stent insertion of renal artery Lt History of ulcerative colitis Hypertension Mitral regurgitation Osteoarthritis PAD (peripheral artery disease) Peripheral neuropathy Right renal artery stenosis h/o failed attempt to stent Rt renal artery per pt - atheroemboli to her feet and kidneys Spinal stenosis Surgical History History of anesthesia reaction "easy to put out and hard to wake up" History of breast biopsy History of cardiac catheterization 2018 [place] -abn stress test - no stents History of colectomy No colostomy, anastamosis of small bowel. History of colonoscopy History of esophagogastroduodenoscopy (EGD) History of lumpectomy of left breast History of vascular access device temporary dialysis catheter to Rt chest History of vascular surgery 03/22/2020 DR Pfeiffer [facility] stents to BLLE Family History Mother Colon cancer Cardiac disorder Hypertension Father Colon cancer Cardiac disorder Cancer Family/Other Coronary arteriosclerosis Other No family history of adverse response to anesthesia Social History Smoking Status: Never smoker Second Hand Exposure: No; Hx Alcohol Use: No Hx Substance Use: No Preferred Language: [place]an Communication Ability: Effective Regulatory Compliance Coordinator Required: No Beliefs That Will Affect Care: None marital status: Current Living Situation: Spouse current occupational status: retired How many Children do You have: 1 How many Children do You have Comment: not local. able to assist with care as needed. Other Information That Helps Us Care for You: No Feels Safe at Home: Yes Safety Concerns: Feels Safe At This Time Diet Comment: renal diet during the past year weight has: decreased > 10 lbs Assistive Devices: Denture - Upper and Glasses Physical Exam Physical Exam: On physical examination, Mrs. Arnett was seen in her room. She appeared to be comfortable when seen although she said she felt drowsy. She is a chronically ill-appearing woman. Her blood pressure was 136/84 supine. Her pulse 106 and regular, respiratory rate 15 with an oxygen saturation of 95% on room air. Her temperature was 36.9 degrees. Her skin shows some changes of alopecia on her head related to prior chemotherapy for breast cancer. Skin turgor is normal. She has ischemic changes of several toes on each foot. Most notably, she has dramatic ischemia of the great toe and second toe of the right foot and the fifth toe of the left foot. She has some residual scabs on several of the other toes on each foot. Her skin turgor appears normal. She has scars from her breast procedure. She has no palpable lymphadenopathy. Her head is normal other than her partial alopecia. Eyes are grossly normal. The ocular fundi were not examined. There is no conjunctival icterus. Ears, nose, mouth and throat are unremarkable. Oral mucous membranes are moist. Her neck is supple. There is no jugular venous distention, carotid bruit or thyromegaly. Her chest is clear to auscultation. I hear no wheezes, rales or rhonchi. Cardiac exam shows a regular rhythm. S1 and S2 are normal. She has a soft systolic murmur at the base and left sternal border. It is radiating toward the neck but is also heard at the base radiating toward the apex. Her abdomen is generally tender but specifically tender in the right lower quadrant. Bowel sounds are quiet. She does have a nasogastric tube in place. She has no tenderness over the dorsal spine. There is no CVA tenderness. I do not hear any abdominal bruits. Extremities show the ischemic changes described above. I do not hear bruits over the femoral arteries. She had postoperative changes involving her right arm AV fistula. Her neurologic exam shows no lateralizing changes or focal abnormalities. Results & Data ([facility]) Vital Signs (Past 12 Hours) Vital Signs Temp Pulse Pulse Resp BP BP Pulse Ox 08/09/20 07:39 36.9 C 106 H 15 136/84 95 08/09/20 03:05 95 H 16 134/75 96 08/09/20 03:00 36.8 C 61 18 148/91 H 91 08/09/20 02:00 97 H 18 152/100 H 95 08/09/20 01:20 85 18 127/78 96 08/09/20 01:00 90 20 95 08/09/20 00:00 90 22 142/84 H 95 Laboratory Results Laboratory Results - last 24 hr 08/08/20 08/08/20 08/08/20 22:38 22:38 22:38 WBC 6.84 RBC 3.74 L Hgb 11.3 L Hct 35.9 L MCV 96.0 MCH 30.2 MCHC 31.5 L RDW Std Deviation 56.3 H RDW Coeff of Max 15.9 H Plt Count 357 MPV 9.5 Immature Gran % (Auto) 0.1 Neut % (Auto) 75.1 Lymph % (Auto) 11.0 Sac % (Auto) 13.6 Eos % (Auto) 0.1 Baso % (Auto) 0.1 Neut # (Auto) 5.13 Lymph # (Auto) 0.75 L Sac # (Auto) 0.93 H Eos # (Auto) 0.01 Baso # (Auto) 0.01 Immature Gran # (Auto) 0.01 Sodium 131 L Potassium 6.4 H* Chloride 91 L Carbon Dioxide 28 Anion Gap 12.0 H BUN 45 H Creatinine 8.15 H* Est Cr Clr Drug Dosing 3.5 Est GFR ( Amer) 4.8 Est GFR (Non-Af Amer) 4.1 BUN/Creatinine Ratio 5.4 L Glucose 111 H Lactate 2.8 H* Calcium 9.7 Total Bilirubin 0.4 AST 10 L ALT 9 L Alkaline Phosphatase 63 Total Protein 8.2 Albumin 3.2 L Globulin 5.0 H Albumin/Globulin Ratio 0.6 L Lipase 97 Urine Color Urine Appearance Urine pH Ur Specific [place] Urine Protein Urine Glucose (UA) Urine Ketones Urine Blood Urine Nitrite Urine Bilirubin Urine Urobilinogen Ur Leukocyte Esterase Urine WBC (Auto) Urine RBC (Auto) U Hyaline Cast (Auto) U Epithel Cells (Auto) Urine Bacteria (Auto) Urine Yeast COVID-19 Eval Order SARS-CoV-2 (PCR) 08/09/20 08/09/20 08/09/20 00:57 00:57 05:57 WBC RBC Hgb Hct MCV MCH MCHC RDW Std Deviation RDW Coeff of Max Plt Count MPV Immature Gran % (Auto) Neut % (Auto) Lymph % (Auto) Sac % (Auto) Eos % (Auto) Baso % (Auto) Neut # (Auto) Lymph # (Auto) Sac # (Auto) Eos # (Auto) Baso # (Auto) Immature Gran # (Auto) Sodium Potassium Chloride Carbon Dioxide Anion Gap BUN Creatinine Est Cr Clr Drug Dosing Est GFR ( Amer) Est GFR (Non-Af Amer) BUN/Creatinine Ratio Glucose Lactate 2.0 Calcium Total Bilirubin AST ALT Alkaline Phosphatase Total Protein Albumin Globulin Albumin/Globulin Ratio Lipase Urine Color Urine Appearance Urine pH Ur Specific [place] Urine Protein Urine Glucose (UA) Urine Ketones Urine Blood Urine Nitrite Urine Bilirubin Urine Urobilinogen Ur Leukocyte Esterase Urine WBC (Auto) Urine RBC (Auto) U Hyaline Cast (Auto) U Epithel Cells (Auto) Urine Bacteria (Auto) Urine Yeast COVID-19 Eval Order Covid19 at [facility] SARS-CoV-2 (PCR) NEGATIVE 08/09/20 08/09/20 08/09/20 05:57 05:57 11:35 WBC 6.64 RBC 3.78 L Hgb 11.5 L Hct 35.7 L MCV 94.4 MCH 30.4 MCHC 32.2 RDW Std Deviation 55.2 H RDW Coeff of Max 15.8 H Plt Count 359 MPV 9.3 Immature Gran % (Auto) 0.5 Neut % (Auto) 70.6 Lymph % (Auto) 14.8 Sac % (Auto) 13.7 Eos % (Auto) 0.2 Baso % (Auto) 0.2 Neut # (Auto) 4.70 Lymph # (Auto) 0.98 L Sac # (Auto) 0.91 H Eos # (Auto) 0.01 Baso # (Auto) 0.01 Immature Gran # (Auto) 0.03 H Sodium 127 L Potassium 5.4 H D Chloride 89 L Carbon Dioxide 28 Anion Gap 10.0 BUN 51 H Creatinine 8.44 H* Est Cr Clr Drug Dosing 3.7 Est GFR ( Amer) 4.6 Est GFR (Non-Af Amer) 4.0 BUN/Creatinine Ratio 6.0 L Glucose 117 H Lactate Calcium 9.5 Total Bilirubin 0.5 AST 7 L ALT 7 L Alkaline Phosphatase 63 Total Protein 7.9 Albumin 3.2 L Globulin 4.7 H Albumin/Globulin Ratio 0.7 L Lipase Urine Color Yellow Urine Appearance Clear Urine pH 5.0 Ur Specific [place] 1.037 H Urine Protein 2+ H Urine Glucose (UA) Negative Urine Ketones Trace H Urine Blood Negative Urine Nitrite Negative Urine Bilirubin Negative Urine Urobilinogen Negative Ur Leukocyte Esterase Trace H Urine WBC (Auto) Pending Urine RBC (Auto) Pending U Hyaline Cast (Auto) Pending U Epithel Cells (Auto) Pending Urine Bacteria (Auto) Pending Urine Yeast Pending COVID-19 Eval Order SARS-CoV-2 (PCR) PG Care Time/CCT Total # of Minutes Spent Total Time Spent with Patient: Total time spent is greater than 50% in coordination of care (as documented) at patient's floor/unit and/or counseling patient: Coding Level of Care Code 27790 Inpt Consult Level 5 Diagnoses ESRD (end stage renal disease) on dialysis N18.6; Z99.2 Small bowel obstruction K56.609 Time Spent (min) 70
[2020-08-09 12:25] LABS: Bacteria Urine Automated 1+ (Negative)
[2020-08-09] MEDS ORDERED: ACETAMINOPHEN 1000 MG/100 ML IV IV PRN (15:57)
[2020-08-09] MEDS ORDERED: ACETAMINOPHEN 1000 MG/100 ML IV IV ONE (16:06)
[2020-08-09] MEDS: ONDANSETRON INJ 2 MG/ML 2 ML VIAL IV PRN (16:17)
[2020-08-09] MEDS ORDERED: METOPROLOL TARTRATE 1 MG/ML VIAL IV PRN (17:34)
[2020-08-09] MEDS ORDERED: ROSUVASTATIN CALCIUM 10 MG TAB PO SCH (21:00)
[2020-08-09] MEDS ORDERED: METOPROLOL SUCC 50MG EXT REL TAB PO SCH (21:00)
[2020-08-09] MEDS ORDERED: ASPIRIN 81 MG ECTAB PO SCH (21:00)
[2020-08-09] MEDS: MoRPHine SULFATE 2 MG/ML CARP IV PRN (21:21)
[2020-08-10] MEDS: MoRPHine SULFATE 2 MG/ML CARP IV PRN ×3 (04:31→12:43)
[2020-08-10] MEDS: SODIUM CHLORIDE 0.9% 1000ML 1,000 ML IV SCH ×2 (04:56→08:01)
[2020-08-10] MEDS: GABAPENTIN 100 MG CAP PO SCH (07:42)
[2020-08-10] MEDS: CHOLECALCIFEROL 1,000 UNITS 25 MCG TAB PO SCH (07:42)
[2020-08-10] MEDS: amLODIPine BESYLATE 5 MG TAB PO SCH (07:42)
[2020-08-10] MEDS: LANSOPRAZOLE 30 MG SOLTAB PO SCH (07:42)
[2020-08-10] MEDS: CLOPIDOGREL BISULFATE 75 MG TAB PO SCH (07:42)
[2020-08-10] MEDS: HEPARIN SOD 5,000 UNIT/0.5 ML VIAL SQ SCH (07:43)
--- NOTE | 2020-08-10 07:56 | Surgery Progress Note ---
Date of Service August 10, 2020 Assessment & Plan (1) Small bowel obstruction: Patient is feeling well today. No nausea/vomiting, not much abd. pain NGT 650cc overnight, she is also taking in ice-chips Abdomen is soft, non tender She started passing flatus and had a BM overnight Will perform an NGT clamping trial this AM and consider removal later today Continue ambulation as tolerates Admission and Anticipated Discharge Date Admission Date: August 09, 2020 Supervising Physician Co-Signing Physician Notes I personally saw and evaluated the patient with Robyn Hawley PA-C and agree with the assessment and plan 80 yo female with multiple medical co morbidities here with SBO -No plans for any surgical intervention at this time -She is extremely high risk for surgery being on DAPT and with recent LAN placement 5 weeks ago for NSTEMI -She seems to be doing better and had a BM last night -Clamp trial for NGT Subjective Patient says she is feeling good this AM. Denies any nausea/vomiting or abdominal pain. Said she is starting to pass some flatus and she had a loose BM overnight. She is complaining of some toe pain that she said has been bothering her now for awhile. Physical Exam Physical Exam: awake/alert Respiratory: normal respiratory effort Gastrointestinal (Abdomen): Inspection/Auscultation: abdomen not distended Percussion/Palpation: abdomen soft; abdomen nontender NGT draining brown/bilious outtput Results & Data ([facility]) Vital Signs (Past 12 Hours) Vital Signs Temp Pulse Pulse Pulse Pulse Resp BP 08/10/20 04:01 36.5 C 79 20 08/10/20 01:00 106 H 08/09/20 23:32 37.0 C 102 H 20 08/09/20 22:05 112 H 08/09/20 21:22 128 H 149/88 H 08/09/20 20:32 36.6 C 114 H 18 08/09/20 19:53 36.5 C 116 H 18 BP Pulse Ox 08/10/20 04:01 127/77 96 08/10/20 01:00 08/09/20 23:32 137/80 95 08/09/20 22:05 08/09/20 21:22 08/09/20 20:32 149/88 H 96 08/09/20 19:53 145/86 H 95 PG Care Time/CCT Total # of Minutes Spent Total Time Spent with Patient: Total time spent is greater than 50% in coordination of care (as documented) at patient's floor/unit and/or counseling patient: Coding Level of Care Code 00142 Subseq Hosp Care Lvl 1 Diagnoses Small bowel obstruction K56.609
--- NOTE | 2020-08-10 09:52 | Nephrology Progress Note ---
Date of Service August 10, 2020 Assessment & Plan (1) ESRD (end stage renal disease) on dialysis: Mrs. Arnett is apparently doing well. Her vital signs are stable. She has no symptoms of uremia or volume overload. She had a large bowel movement overnight. She now has normal bowel sounds and markedly diminished abdominal tenderness. Apparently, the NG tube will be removed later this morning and she will start on some liquids. She hopes to be discharged today if she can tolerate her liquids. She says that she can do all of that at home. I do not disagree with the plan. She lives locally and if she has any recurrence of her small bowel obstruction she can certainly return. We will not plan on hemodialysis for tomorrow here. She will be dialyzed at [facility] assuming she does well at home. If she does not tolerate a liquid diet and has recurrent abdominal symptoms, however, I can write for dialysis orders in the morning for her to have here. Should she be discharged, she should be discharged on all her of her usual medications. (2) Arteriosclerotic cardiovascular disease (ASCVD): (3) Small bowel obstruction: Admission and Anticipated Discharge Date Admission Date: August 09, 2020 Subjective Mrs. Arnett says that she is feeling considerably better this morning. Overnight, she says that she had a very large bowel movement. Since then, her abdomen has been less tender. She denies passing much in the way of flatus. She has no nausea. Her NG tube remains in place and she is on slow IV fluids. She has no cardiovascular symptoms or complaints including no problems of chest pain or shortness of breath. She is hoping to have the NG tube pulled later this morning and to be started on a liquid diet. She says if that goes well she then may get a bit more to take in. She hopes to be discharged tonight if she has no recurrent discomfort. She has not required significant analgesics. She continues to have pain in her toes particularly the right great toe and second toe and the left fifth toe. Her dialysis treatment yesterday was complicated by a drop in her blood pressure. However, she responded nicely to IV fluids. Her ultrafiltration orders were likely too aggressive which led to the drop in her blood pressure. However, with fluids her blood pressure returned to normal. Her ultrafiltration was dramatically reduced. She has had no sequela including no problems of shortness of breath. Her review of systems is unremarkable. Physical Exam Physical Exam: On physical examination, Mrs. Arnett appears far more comfortable than she was yesterday. She is oriented in 3 spheres, pleasant and cooperative. Her nasogastric tube remains in place and she is having some drainage from it. Her blood pressure this morning is 127/77 with a pulse of 106 and regular. Her respiratory rate is 20 with an oxygen saturation of 96% on room air. She is afebrile. 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 Her skin turgor is normal. She has ischemic changes of several toes in her right foot particularly the first and second toes. On her left foot she has scabs from prior ischemia on several toes but significant pregangrenous changes of the fifth toe of her left foot. She has scars on her right arm from the creation of her AV fistula. She has no palpable lymphadenopathy. Her head is normal. Eyes are grossly normal. She has no conjunctival icterus. Her fundi were not examined. Ears, nose, mouth and throat are remarkable for the nasogastric tube. Her oral mucous membranes are moist. Her neck is supple. There is no jugular venous distention, carotid bruit or thyromegaly. Her chest is clear to auscultation. She has no wheezes, rales or rhonchi. Cardiac exam shows a regular rhythm. S1 and S2 are normal. She has a soft systolic murmur at the base and along the left sternal border radiating to both the base and the apex. Her abdomen is minimally distended. She has some very mild tenderness particularly in the right lower quadrant. There is no guarding or rebound. B owel sounds are present with the nasogastric tube clamped by me. There is no obvious organomegaly or mass. I hear no abdominal bruits. Extremities show the changes in her digits noted above. Peripheral pulses are generally intact but diminished in her feet. I do not hear femoral bruits. There is a good pulse, thrill and bruit over her right arm fistula. Her neurologic exam shows no lateralizing changes. Results & Data ([facility]) Vital Signs (Past 12 Hours) Vital Signs Temp Pulse Pulse Resp BP Pulse Ox 08/10/20 08:14 106 H 08/10/20 04:01 36.5 C 79 20 127/77 96 08/10/20 01:00 106 H 08/09/20 23:32 37.0 C 102 H 20 137/80 95 08/09/20 22:05 112 H PG Care Time/CCT Total # of Minutes Spent Total Time Spent with Patient: Total time spent is greater than 50% in coordination of care (as documented) at patient's floor/unit and/or counseling patient: 35 Coding Level of Care Code 77872 Subseq Hosp Care Lvl 3 Diagnoses ESRD (end stage renal disease) on dialysis N18.6; Z99.2 Arteriosclerotic cardiovascular disease (ASCVD) I25.10 Small bowel obstruction K56.609
--- NOTE | 2020-08-10 09:53 | Medical Student Progress Note ---
Date of Service August 10, 2020 Assessment & Plan (1) Small bowel obstruction: Adriana Arnett is a 80 yo female with an extensive PMH including ESRD for which she is on dialysis, h/o of colectomy and appendectomy, peripheral artery disease with ulceration, CAD, and abdominal aortic aneurysm, who was admitted for small bowel obstruction. 1) SBO -Surgery ordered clamping of the NG with evaluation at 1200. -Considering to advance diet if clamping is tolerated. -Continuing ice chips 2) ESRD -Cr 8.4 -Keep MWF schedule for dialysis -appreciate recommendations and support from nephrology, follows with Dr. Kaur 3) CAD - Stent to circumflex placed 07/02/20 - cont DAPT, statin 4) Ischemic Ulcers on toes of both feet Secondary to peripheral artery disease. Morphine and acetaminophen do not control adequately control the pain. She does not like the side effects of fentanyl, even though it does control the pain. She would prefer the pain over the side effects. - Morphine and Acetaminophen PRN Chronic Medical Conditions - Anx/Dep: cont buspirone - Neuropathy: cont gabapentin - HTN: cont metoprolol - Chronic Pain: fentanyl , PRN percocet DVT ppx: heparin Sq bid FEN/GI: dialysis diet, fluid restriction, lansoprazole Code Status: DNR/DNI, No resus. Dispo: Med/Surg Admission and Anticipated Discharge Date Admission Date: August 09, 2020 Supervising Attestation Patient seen and examined with MS [place] Price and PGY-2 Dr. Escobar. Agree with history, exam findings, assessment and plan of care as outlined with the following updates: In brief, Ms. Arnett is an 80 year old female with history of ESRD on HD, CAD, chronic pain and past colectomy for ulcerative colitis admitted with a small bowel obstruction. NGT placed in ED. NGT clamped this morning. Doing well with ice chips. No nausea. No emesis. She was able to tolerate clears and soft without nausea, emesis or recurrence of abdominal pain. Did have a bowel movement last night and passing gas from below. Non-toxic appearing. Decreased bowel sounds. Abdomen is soft, non-distended. Nontender. Ischemic ulcers on the tips of toes. Foot is warm. +1 dorsalis pedis pulses, +1 tibial pulses. 1. SBO. Resolved. 2. ESRD on HD, MWF. Appreciate nephrology recommendations 3. CAD/PAD. Recent cardiac stent. Ischemic ulcers on toes. Low suspicion for acute ischemia. Already medically optimized. Wound care consult--appreciate recommendations 4. Chronic pain. Followed by palliative in the outpatient setting. Pt is concerned about drowsiness related to fentanyl and methadone. Would prefer to stick with tylenol and tramadol. Ok for IV tylenol. Once she is able to take PO, can consider restarting tramadol. Dipso: Discharge home today. I personally spent 25 minutes discharge planning for this patient. Subjective Mrs. Arnett reports a BM with gas last night. She considered it to be large, loose, and appropriate color. She does not have any abdominal pain, reports no nausea or vomiting, and is feeling hungry. She still complains of a dry mouth and continues to have ice chips. She is doing well this morning. The ischemic pain in her toes is bothering her. Overnight she received acetaminophen and morphine which did not relieve her pain. Even though fentanyl relieves her pain, she does not like the lethargy it causes, and would prefer the pain rather than the side effects of treatment. She finds when she is seated with her feet lower, it relieves some of the pain. Review of Systems Gastrointestinal: + diarrhea/loose stools; no abdominal pain, no nausea and no vomiting Musculoskeletal: Toe Pain Physical Exam Physical Exam: Gen: Patient was awake, alert, and cooperative during the interveiw. Cardio: RRR with no RMG appreciated on exam. Pulm: CTA Abd: Non-distended, hypoactive bowel sounds, mildly tender in the lower right quadrant, involuntary rebound. Results & Data ([facility]) Vital Signs (Past 12 Hours) Vital Signs Temp Pulse Pulse Resp BP Pulse Ox 08/10/20 08:14 106 H 08/10/20 04:01 36.5 C 79 20 127/77 96 08/10/20 01:00 106 H 08/09/20 23:32 37.0 C 102 H 20 137/80 95 08/09/20 22:05 112 H Laboratory Results 08/09/20 Range/Units 11:35 Urine Color Yellow Urine Appearance Clear (Clear) Urine pH 5.0 (4.5-7.5) Ur Specific [place] 1.037 H (1.000-1.030) Urine Protein 2+ H (Negative) Urine Glucose (UA) Negative (Negative) Urine Ketones Trace H (Negative) Urine Blood Negative (Negative) Urine Nitrite Negative (Negative) Urine Bilirubin Negative (Negative) Urine Urobilinogen Negative (Negative) Ur Leukocyte Esterase Trace H (Negative) Urine WBC (Auto) 10-30 H (0-5) /hpf Urine RBC (Auto) 0-4 (0-4) /hpf U Hyaline Cast (Auto) 1-5 (0-5) /lpf U Epithel Cells (Auto) >30 H (0-5) /lpf Urine Bacteria (Auto) 1+ H (Negative) Granular Casts 1-5 H (0) /lpf Urine Yeast Not Reportable
[2020-08-10 11:48] VITALS: O2SAT 92
[2020-08-10 16:01] VITALS: BP 154/90; TEMP 98.6
[2020-08-10 17:03] VITALS: PULSE 116
[2020-08-10] MEDS: ONDANSETRON INJ 2 MG/ML 2 ML VIAL IV PRN (17:21)
--- NOTE | 2020-08-10 17:41 | Discharge Summary ---
Date of Service August 10, 2020 Principal Diagnosis small bowel obstruction Discharge Exam Constitutional WD/WN, vitals as above Eyes PERRL, conjunctivae normal, anicteric sclerae Respiratory normal respiratory effort, lungs clear to auscultation Auscultation: no crackles, no rales, no rhonchi and no wheezes Cardiovascular Rate/Rhythm: regular rate and regular rhythm Heart Sounds: no gallop, no murmur and no cardiac rub Vessels: no JVD Gastrointestinal (Abdomen) Inspection/Auscultation: normal bowel sounds; abdomen not distended Percussion/Palpation: abdomen soft; abdomen nontender and no guarding Neurologic CN's II-XI intact bilaterally and moves all extremities Psychiatric Orientation: alert and oriented x 3 Discharge Data Allergies Allergy/AdvReac Type Severity Reaction Status Date / Time hydrocodone Allergy Intermediate RASH, HIVES Verified 08/09/20 00:59 Sulfa (Sulfonamide AdvReac Intermediate "SULFA Verified 08/09/20 00:59 Antibiotics) DRUGS": N/V hydrochlorothiazide AdvReac Mild GI Verified 08/09/20 00:59 SYMPTOMS,NAUSEA AND VOMITING spironolactone AdvReac Mild GI Verified 08/09/20 00:59 SYMPTOMS,NAUSEA AND VOMITING Aldactazide AdvReac Unknown GI Unverified 07/24/17 10:20 SYMPTOMS,NAUSEA AND VOMITING Consultations 08/09/20 01:29 Consult General Surgery Stat ED Decision to Admit Stat 08/09/20 03:50 Consult Nephrology Routine Ordered Studies 08/08/20 22:02 CT abd pelvis oral and IV con Urgent Hospital Course (1) Small bowel obstruction: Adriana Arnett is a 80 yo female with an extensive PMH including ESRD for which she is on dialysis, h/o of colectomy and appendectomy, peripheral artery disease with ulceration, CAD, and abdominal aortic aneurysm, who was admitted for small bowel obstruction. Small Bowel Obstruction: -NG tube in place for approximately 16hours -control of symptoms with tolerance of oral intake prior to NG tube removal -with history of previous abdominal surgeries, multiple potential etiologies ESRD: -continue MWF schedule for dialysis CAD: -Stent to circumflex placed 07/02/20 -continue Dual anti-platelet therapy and statin Ischemic Ulcers on toes of both feet: -Secondary to peripheral artery disease -seemingly stable at this time -continue oral pain therapy -desires stopping of methadone/fentanyl patch Chronic Medical Conditions - Anx/Dep: cont buspirone - Neuropathy: cont gabapentin - HTN: cont metoprolol - Chronic Pain: fentanyl , PRN percocet Total Time Total Time Spent Total Time Spent (In Minutes): >30 Discharge Plan Discharge Items Patient Disposition: Home - Self-Care Reason For Visit: SBO Discharge Diagnosis: Small Bowel Obstruction Activity: Resume your previous activity Non-emergency contact: Primary Care Provider Call non-emergency contact if: you have any medication questions and your symptoms worsen Follow-up/Referrals: Johnny Rai MD [Primary Care Provider] - 08/19/20 1:00 pm (If you have any questions or need to change this appointment, please call [phone].) Diet: Dialysis Renal Addtl Attending Provider Instructions: Mrs. Arnett, you were treated for a small bowel obstruction, which was the cause of your symptoms. This resolved spontaneously. Since you were able to tolerate lunch it is safe to discharge you home. But if you have return of symptoms (abdominal pain, nausea with vomiting) please come back to [facility] ED for treatment. You can resume all your prior medications. Nephrology advised that you return for outpatient hemodialysis tomorrow at [facility]. Pending Studies at Discharge: No Stand-Alone Forms: [facility] Medications and DC Order Prescriptions: Continued cholecalciferol (vitamin D3) 2,000 unit capsule 2,000 units PO QAM RF: 0 clopidogrel 75 mg tablet 75 mg PO QAM Qty: 90 RF: 3 metoprolol succinate 50 mg tablet extended release 24 hr 50 mg PO HS Qty: 90 RF: 3 rosuvastatin 10 mg tablet 10 mg PO HS Qty: 90 RF: 3 methadone 5 mg tablet 2.5 mg PO BID 30 Days Qty: 30 RF: 0 exemestane 25 mg tablet 25 mg PO DAILY@1200 RF: 0 coenzyme Q10 200 mg capsule 200 mg PO QAM RF: 0 ondansetron 4 mg tablet,disintegrating 4 mg PO Q6H PRN (Reason: nausea and vomiting) Qty: 90 RF: 0 lansoprazole 30 mg capsule,delayed release(DR/EC) 30 mg PO DAILY Qty: 30 RF: 0 amlodipine 10 mg tablet 10 mg PO QAM RF: 0 aspirin [Enteric Coated Aspirin] 81 mg tablet,delayed release (DR/EC) 81 mg PO HS RF: 0 acetaminophen 325 mg Tablet 650 mg PO Q4H PRN (Reason: pain) Qty: 30 RF: 0 buspirone 5 mg tablet 5 mg PO DAILY PRN (Reason: Anxiety) RF: 0 gabapentin 100 mg capsule 200 mg PO DAILY RF: 0 Discharge Orders: Discharge Order (Routine); Ordered 08/10/20 Ordered By: Glen Huntre/Other Patient Handouts: Small Bowel Obstruction Admission Data Admit Date/Time: 08/09/20 02:16 Attending Provider: Elías Rosenberg Admit Provider: Mavis Penn Primary Care Provider: Johnny Rai Other Providers: Mark Henderson ; Gerson Brambila ; Terrance Kaur Other Interventions: Discharge Summary Assessment (RN) Last Done: 08/10/20 17:00 Supervising Physician Co-Signing Physician Notes Patient seen and examined with [place] Price and PGY-2 Dr. Escobar. Agree with history, exam findings, assessment and plan of care as outlined with the following updates: In brief, Ms. Arnett is an 80 year old female with history of ESRD on HD, CAD, chronic pain and past colectomy for ulcerative colitis admitted with a small bowel obstruction. NGT placed in ED. NGT clamped this morning. Doing well with ice chips. No nausea. No emesis. She was able to tolerate clears and soft without nausea, emesis or recurrence of abdominal pain. Did have a bowel movement last night and passing gas from below. Non-toxic appearing. Decreased bowel sounds. Abdomen is soft, non-distended. Nontender. Ischemic ulcers on the tips of toes. Foot is warm. +1 dorsalis pedis pulses, +1 tibial pulses. 1. SBO. Resolved. 2. ESRD on HD, MWF. Appreciate nephrology recommendations 3. CAD/PAD. Recent cardiac stent. Ischemic ulcers on toes. Low suspicion for acute ischemia. Already medically optimized. Wound care consult--appreciate recommendations 4. Chronic pain. Followed by palliative in the outpatient setting. Pt is concerned about drowsiness related to fentanyl and methadone. Would prefer to stick with tylenol and tramadol. Ok for IV tylenol. Once she is able to take PO, can consider restarting tramadol. Dipso: Discharge home today. I personally spent 25 minutes discharge planning for this patient. Resident Activity Tracking Resident Involvement: Resident Care Provided Care Provided: Adult [facility] Medicine
--- NOTE | 2020-08-13 02:31 | Billing Data ---
Date of Service August 13, 2020 Coding Level of Care Code 66764 Initial Inpt Care Lvl 3
== END 2020-08-10 17:50 | disposition home or self-care (01) ==
LOC: ED 20:45 → SUATTDRO 08-09 02:16 → 3N 08-09 02:16 → 2N 08-09 20:20

== ENCOUNTER 2020-08-11 | Inpatient (IN) ==
[2020-08-11] MEDS ORDERED: fentaNYL citrate 100 MCG/2 ML VIAL IV STA (00:09)
[2020-08-11] MEDS ORDERED: SODIUM CHLORIDE 0.9% 1000ML 1,000 ML IV ONE (00:13)
--- NOTE | 2020-08-11 00:14 | Emergency Department Note ---
Impression & Plan Small bowel obstruction, Acute dehydration ED Provider Note Name: TRI PETERSON Age: 80 Sex: F Arrives Via: Ambulance Informant: Patient, EMS, ED Provider: Vladimir Schwartz MD Chief Complaint: Abdominal Pain Impression: Small Bowel Obstruction Acute Dehydration Medical Decision Makin yr old female with extensive PMH who arrives a few hours post discharge with continued nausea, vomiting and abdominal pain. She had been in hospital for last 4 days due to SBO which had thought to have resolved. She is dehydrated on exam and uncomfortable. IV fentanyl helped some. KUB reveals SBO. NG tube placed post Ativan with large amount gastric outs. She is breathing comfortably and looks much better. IV fluids given. WIth improvement in symptoms, lactate OK and patietn feeling better I do not feel that emergent CT indicated. Hospitalist consulted for further management. I will note, I discussed consulting surgeon in ED with patient/, and she is adamant she will not be having surgery. I did discuss with gen surg findings and given patient stable they will follow along with hospitalization. Prior Medical Record and Triage/Nursing Notes reviewed by Me Additional history obtained from charge Differentials:Gastroenteritis, food borne illness, infections, appendicitis, diverticulitis, inflammatory bowel disease, obstruction, GI bleed, biliary pathology, volvulus, as well as other pathologies. Vital Signs: reviewed and remarkable for tachy Interventions: saline lock, nss bolus, fentanyl iv, ativan iv Labs:Reviewed and remarkable for no acute findings Imaging: X ray results are stated below per my interpretation: KUB: 1 view: distended small bowel consistent with SBO Per My Interpretation: Indication Vomiting/epigastric pain: Sinus Tach 114 bpm, qtc 474 with PAC. No Ischemia. Compared to EKG 06/30/20, no significant changes. Cardiac/Tele Monitoring: Cardiac Monitoring: An Order was placed for continuous cardiac monitoring. The monitor shows a rate of 110 with a sinus tach rhythm. Consults:Dr Isidro DIAZ Hospitalist Plan: Disposition:Hospitalization. Condition: Good History of Present Illness:80 yr old female arrives for evaluation of epigastric pain. Patient discharged from ID yesterday (08/10) after 2 days in hospital for SBO that spontaneously resolved. Since getting home no further bowel movements though was passing some gas. Today increasing diffuse abdominal pain. This evening epigastric pain with associated nausea and vomiting. Emesis is dark and feculent. Movement makes worse, rest makes better. Fentanyl 50mcg IV and Zofran 4mg IV by EMS prior to arrival without improvement. No recent surgery. Notes she had stent placed in heart a few weeks ago due to worsening fluid overload and is currently on asa 81mg daily and plavix 75mg daily. History of colon removal 30 yrs ago for ulcerative colitis. She had never had a bowel obstruction until this last week. ROS: See above HPI for pertinent positives & negatives. A total of 10 systems reviewed and were otherwise negative. Past Medical History:See Below Past Surgical History:See Below Family History:See Below Social History:See Below Home Medications:See Below Allergies:See Below Vitals:Blood Pressure: 150/70, Pulse 112, RR 20, T 36.4C, O2 98% on RA Physical Exam: GENERAL: Patient is uncomfortable appearing and in moderate distress. Appears nauseous EYES: No scleral icterus, unremarkable pupils. ENT: Mucous membranes dry, no nasal congestion. NECK: No masses appreciated, nomeningismus, trachea is midline. RESPIRATORY: No dyspnea. Clear to auscultation and equal bilaterally. No wheeze, no rhonchi. CARDIOVASCULAR: Tachy.No murmurs, rubs, gallops appreciated. GASTROINTESTINAL: Diffuse TTP with hyperactive bowel sounds and distended BACK: No midline tenderness, no CVA tenderness EXTREMITIES: Normal motion all extremities, no cyanosis, no edema. NEUROLOGIC: Alert and oriented, no acute motor or sensory deficits, no focal weakness, cranial nerves grossly intact. SKIN: No rash, no jaundice, no diaphoresis. PSYCH: Appropriate GCS: 15 ED Course: Times/Reassessments: vastly improved with NG tube and feeling much better Vladimir Schwartz MD Past Med/Surg History Medical History (Updated 08/11/20 @ 06:56 by Vladimir Schwartz MD) AAA (abdominal aortic aneurysm) PCP monitoring. "Mild fusiform aneurysmal dilatation of the distal thoracic and abdominal aorta." per 02/27/[address] CAD (coronary artery disease) Severe multivessel coronary artery diseaseoccluded distal right, occluded distal circumflex, 90% focal stenosis in mid circumflex into OM1 - follows with Dr. Pfeiffer Cancer of left breast, stage 1 (07/23/15) Chronic diastolic CHF (congestive heart failure) Degenerative joint disease, multiple joints on both sides of body Dyslipidemia ESRD (end stage renal disease) on dialysis started dialysis 12/[address] [facility] - follows with Dr. Kaur Fibromyalgia GERD (gastroesophageal reflux disease) History of breast cancer Lt lumpectomy/chemo/radiation 2016 History of femoral angiogram History of myocardial infarction silent -- informed in 2018 of evidence of previous [place] History of skin cancer removed History of stent insertion of renal artery Lt History of ulcerative colitis Hypertension Mitral regurgitation Osteoarthritis PAD (peripheral artery disease) Peripheral neuropathy Right renal artery stenosis h/o failed attempt to stent Rt renal artery per pt - atheroemboli to her feet and kidneys Small bowel obstruction Spinal stenosis Surgical History History of anesthesia reaction "easy to put out and hard to wake up" History of breast biopsy History of cardiac catheterization 2017 [place] -abn stress test - no stents History of colectomy No colostomy, anastamosis of small bowel. History of colonoscopy History of esophagogastroduodenoscopy (EGD) History of lumpectomy of left breast History of vascular access device temporary dialysis catheter to Rt chest History of vascular surgery 03/22/2020 DR Pfeiffer [facility] stents to BLLE Family History Mother Colon cancer Cardiac disorder Hypertension Father Colon cancer Cardiac disorder Cancer Family/Other Coronary arteriosclerosis Other No family history of adverse response to anesthesia Social History Smoking Status: Former smoker Second Hand Exposure: No; Hx Alcohol Use: No Hx Substance Use: No Preferred Language: Mosotho Communication Ability: Effective Airfield Manager Required: No Beliefs That Will Affect Care: None marital status: Current Living Situation: Spouse current occupational status: retired How many Children do You have: 1 How many Children do You have Comment: not local. able to assist with care as needed. Feels Safe at Home: Yes Diet Comment: renal diet during the past year weight has: decreased > 10 lbs Assistive Devices: Denture - Upper and Glasses Allergies Allergies Allergy/AdvReac Type Severity Reaction Status Date / Time hydrocodone Allergy Intermediate RASH, HIVES Verified 08/11/20 00:25 Sulfa (Sulfonamide AdvReac Intermediate "SULFA Verified 08/11/20 00:25 Antibiotics) DRUGS": N/V hydrochlorothiazide AdvReac Mild GI Verified 08/11/20 00:25 SYMPTOMS,NAUSEA AND VOMITING spironolactone AdvReac Mild GI Verified 08/11/20 00:25 SYMPTOMS,NAUSEA AND VOMITING Home Meds Home Medications Medication Instructions Recorded Confirmed cholecalciferol (vitamin D3) 50 2,000 units PO QAM 10/16/18 08/11/20 mcg (2,000 unit) capsule coenzyme Q10 200 mg capsule 200 mg PO QAM cap 10/31/18 08/11/20 exemestane 25 mg tablet 25 mg PO DAILY@1200 tab 10/31/18 08/11/20 aspirin [Enteric Coated Aspirin] 81 mg PO HS 01/23/19 08/11/20 amlodipine 10 mg PO QAM 02/27/20 08/11/20 buspirone 5 mg PO DAILY PRN 08/09/20 08/11/20 gabapentin 200 mg PO HS 08/09/20 08/11/20 Previous Rx's Medication Instructions Recorded clopidogrel 75 mg tablet 75 mg PO QAM #90 tab 12/29/19 metoprolol succinate 50 mg 50 mg PO HS #90 tab 01/16/20 tablet,extended release 24 hr rosuvastatin 10 mg tablet 10 mg PO HS #90 tab 04/08/20 lansoprazole 30 mg capsule,delayed 30 mg PO DAILY #30 cap 06/03/20 release ondansetron 4 mg disintegrating 4 mg PO Q6H PRN #90 tab 06/03/20 tablet acetaminophen 650 mg PO Q4H PRN #30 tab 07/03/20 methadone 5 mg tablet 2.5 mg PO BID 30 Days #30 tab 07/27/20 Results & Data (ED) Vital Signs Vital Signs - 24 hr 08/11/20 00:07 08/11/20 00:10 08/11/20 00:28 Temperature 36.4 C L Temperature Source Oral Pulse Rate 122 H 120 H 114 H Pulse Rate from SpO2 Sensor 120 H 120 H Respiratory Rate 23 15 28 H Respiratory Depth Shallow Blood Pressure 143/109 H 174/112 H Blood Pressure Mean 120 132 Pulse Oximetry 92 100 95 Oxygen Delivery Method Nasal Cannula Room Air Oxygen Flow Rate 2 Sepsis Recent Fever Within 48 Hours No Sepsis New/Unexplained Change in Mental Status No Sepsis Action Taken by Nursing Previously Notified 08/11/20 00:30 08/11/20 01:00 08/11/20 01:30 Temperature Temperature Source Pulse Rate 114 H 118 H 117 H Pulse Rate from SpO2 Sensor 114 H 117 H 118 H Respiratory Rate 14 21 16 Respiratory Depth Blood Pressure 174/112 H 170/103 H 153/97 H Blood Pressure Mean 132 125 115 Pulse Oximetry 97 93 95 Oxygen Delivery Method Oxygen Flow Rate Sepsis Recent Fever Within 48 Hours Sepsis New/Unexplained Change in Mental Status Sepsis Action Taken by Nursing Laboratory Data Result diagrams: 08/11/20 00:30 08/11/20 00:30 Lab Results 08/11/20 08/11/20 08/11/20 Range/Units 00:30 00:30 00:30 WBC 6.86 (4.8-10.8) K/uL RBC 3.50 L (4.2-5.4) M/uL Hgb 10.7 L (12.0-16.0) g/dL Hct 33.5 L (37-47) % MCV 95.7 (80-100) fL MCH 30.6 (25-34) pg MCHC 31.9 L (32-36) g/dL RDW Std Deviation 55.9 H (36.4-46.3) fL RDW Coeff of Max 15.9 H (11.5-14.5) % Plt Count 357 (130-400) K/uL MPV 8.9 (7.4-10.4) fL Immature Gran % (Auto) 0.1 % Neut % (Auto) 72.7 % Lymph % (Auto) 11.5 % [place] % (Auto) 15.6 % Eos % (Auto) 0.0 % Baso % (Auto) 0.1 % Neut # (Auto) 4.98 (1.4-6.5) K/uL Lymph # (Auto) 0.79 L (1.2-3.4) K/uL [place] # (Auto) 1.07 H (0.11-0.59) K/uL Eos # (Auto) 0.00 (0-0.5) K/uL Baso # (Auto) 0.01 (0-0.2) K/uL Immature Gran # (Auto) 0.01 (0.00-0.02) K/uL PT 11.7 (9.0-12.0) Seconds INR 1.2 H (0.9-1.1) APTT 29.1 (21.0-31.0) Seconds PTT Ratio 1.1 Sodium (136-145) mmol/L Potassium (3.5-5.1) mmol/L Chloride (98-107) mmol/L Carbon Dioxide (21-32) mmol/L Anion Gap (3-11) BUN (7-18) mg/dl Creatinine (0.6-1.2) mg/dl Est Cr Clr Drug Dosing ml/min Est GFR ( Amer) ml/min Est GFR (Non-Af Amer) ml/min BUN/Creatinine Ratio (10-20) Glucose (70-99) mg/dl Lactate 1.9 (0.4-2.0) mmol/L Calcium (8.5-10.1) mg/dl Magnesium (1.8-2.4) mg/dl Total Bilirubin (0.2-1) mg/dl Direct Bilirubin (0-0.2) mg/dl AST (15-37) U/L ALT (12-78) U/L Alkaline Phosphatase (45-117) U/L Troponin I (0-0.045) ng/ml Total Protein (6.4-8.2) gm/dl Albumin (3.4-5.0) gm/dl Lipase (73-393) U/L 08/11/20 Range/Units 00:30 WBC (4.8-10.8) K/uL RBC (4.2-5.4) M/uL Hgb (12.0-16.0) g/dL Hct (37-47) % MCV (80-100) fL MCH (25-34) pg MCHC (32-36) g/dL RDW Std Deviation (36.4-46.3) fL RDW Coeff of Max (11.5-14.5) % Plt Count (130-400) K/uL MPV (7.4-10.4) fL Immature Gran % (Auto) % Neut % (Auto) % Lymph % (Auto) % [place] % (Auto) % Eos % (Auto) % Baso % (Auto) % Neut # (Auto) (1.4-6.5) K/uL Lymph # (Auto) (1.2-3.4) K/uL [place] # (Auto) (0.11-0.59) K/uL Eos # (Auto) (0-0.5) K/uL Baso # (Auto) (0-0.2) K/uL Immature Gran # (Auto) (0.00-0.02) K/uL PT (9.0-12.0) Seconds INR (0.9-1.1) APTT (21.0-31.0) Seconds PTT Ratio Sodium 135 L D (136-145) mmol/L Potassium 3.5 D (3.5-5.1) mmol/L Chloride 97 L (98-107) mmol/L Carbon Dioxide 25 (21-32) mmol/L Anion Gap 13.0 H (3-11) BUN 39 H (7-18) mg/dl Creatinine 6.54 H* D (0.6-1.2) mg/dl Est Cr Clr Drug Dosing 4.8 ml/min Est GFR ( Amer) 6.3 ml/min Est GFR (Non-Af Amer) 5.4 ml/min BUN/Creatinine Ratio 5.9 L (10-20) Glucose 136 H (70-99) mg/dl Lactate (0.4-2.0) mmol/L Calcium 9.5 (8.5-10.1) mg/dl Magnesium 2.0 (1.8-2.4) mg/dl Total Bilirubin 0.4 (0.2-1) mg/dl Direct Bilirubin 0.2 (0-0.2) mg/dl AST 15 (15-37) U/L ALT 9 L (12-78) U/L Alkaline Phosphatase 58 (45-117) U/L Troponin I 0.178 H* (0-0.045) ng/ml Total Protein 7.5 (6.4-8.2) gm/dl Albumin 3.0 L (3.4-5.0) gm/dl Lipase 114 (73-393) U/L Administered Medications Sodium Chloride (Nss 1000ml) 1,000 mls @ 80 mls/hr IV .[id number] CARLEY Stop: 09/10/20 02:57 Last Admin: 08/11/20 04:16 Dose: 80 mls/hr Documented by: [id number] Miscellaneous (Exemestane: Order Awaiting Action) 1 ea N/A QS CARLEY Stop: 09/10/20 07:59 Last Admin: 08/11/20 06:47 Dose: Not Given Documented by: [id number] Discontinued Medications Fentanyl Citrate (Fentanyl Citrate 100 Mcg/2 Ml Vial) 50 mcg IV NOW STA Stop: 08/11/20 00:10 Last Admin: 08/11/20 00:27 Dose: 50 mcg Documented by: [id number] Sodium Chloride (Nss 1000ml) 1,000 mls @ 999 mls/hr IV .[id number] ONE Stop: 08/11/20 01:13 Last Infusion: 08/11/20 01:57 Dose: 0 mls/hr Documented by: [id number] Admin: 08/11/20 00:27 Dose: 999 mls/hr Documented by: [id number] Lorazepam (Ativan) 0.5 mg in 1 mls @ 1 mls/min IV NOW STA Stop: 08/11/20 00:49 Last Admin: 08/11/20 01:05 Dose: 1 mls/min Documented by: [id number] Discharge Plan Visit Data Chief Complaint: Abdominal Pain Stated Complaint: EPIGASTRIC PAIN ED Provider: Vladimir Schwartz Discharge Problem: Small bowel obstruction, Acute dehydration Patient Disposition: Admitted As Inpatient Discharge Instructions Interventions: ED Discharge Assessment Last Done: 08/11/20 02:17
[2020-08-11 00:44] LABS: Basophils # (auto) 0.01 K/uL (0-0.2); Basophils % (auto) 0.1 %; Hematocrit (blood only) 33.5 % (37-47); Hemoglobin 10.7 g/dL (12.0-16.0); Immature Granulocytes # (auto) 0.01 K/uL (0.00-0.02); Immature Granulocytes % (auto) 0.1 %; Lymphocytes # (auto) 0.79 K/uL (1.2-3.4); Lymphocytes % (auto) 11.5 %; Mean Corpuscular Hemoglobin 30.6 pg (25-34); Mean Corpuscular Hgb Conc 31.9 g/dL (32-36); Mean Corpuscular Volume 95.7 fL (80-100); Mean Platelet Volume 8.9 fL (7.4-10.4); Monocytes # (auto) 1.07 K/uL (0.11-0.59); Monocytes % (auto) 15.6 %; Neutrophils # (auto) 4.98 K/uL (1.4-6.5); Neutrophils % (auto) 72.7 %; Platelet Count 357 K/uL (130-400); RDW Coefficient of Variation 15.9 % (11.5-14.5); RDW Standard Deviation 55.9 fL (36.4-46.3); White Blood Count 6.86 K/uL (4.8-10.8)
[2020-08-11] MEDS ORDERED: LORazepam 0.5 MG/1 ML VIAL IV STA (00:48)
[2020-08-11 00:55] LABS: INR 1.2 (0.9-1.1); Partial Thromboplastin Ratio 1.1; Partial Thromboplastin Time 29.1 Seconds (21.0-31.0); Prothrombin Time 11.7 Seconds (9.0-12.0)
--- NOTE | 2020-08-11 01:08 | History & Physical Report ---
Date of Service August 11, 2020 Assessment & Plan (1) Nausea vomiting and diarrhea: N/V/D - most likely secondary to ileus after narcotic use and recent SBO - KUB showing extensive small bowel loops filled with air - NG tube in place for decompression - Bowel regimen to aid clear out of air/stool: dulcolax suppository, miralax, ESRD - Cr elevated to 6.54, reduced from previous admission - keep schedule for MWF dialysis - appreciate recommendations and support from Nephrology, follows with Dr. Kaur - minimal UOP, fluid restriction, CAD - Stent to circumflex placed 07/02/20 - cont DAPT, statin Chronic Medical Conditions - Anx/Dep: cont buspar - Neuropathy: cont gabapentin - HTN: cont metoprolol - Chronic Pain: tylenol, prn morphine iv. no longer uses fentanyl or methadone. 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 She describes being fine at home until she vomited and started having profuse diarrhea. She denies any fevers or chills. No hematemesis, hematochezia. Primary Care Provider: Johnny Rai MD Allergies Allergy/AdvReac Type Severity Reaction Status Date / Time hydrocodone Allergy Intermediate RASH, HIVES Verified 08/11/20 00:25 Sulfa (Sulfonamide AdvReac Intermediate "SULFA Verified 08/11/20 00:25 Antibiotics) DRUGS": N/V hydrochlorothiazide AdvReac Mild GI Verified 08/11/20 00:25 SYMPTOMS,NAUSEA AND VOMITING spironolactone AdvReac Mild GI Verified 08/11/20 00:25 SYMPTOMS,NAUSEA AND VOMITING Home Medications Medication Instructions Recorded Confirmed Type cholecalciferol (vitamin D3) 50 2,000 units PO QAM 10/16/18 08/11/20 History mcg (2,000 unit) capsule coenzyme Q10 200 mg capsule 200 mg PO QAM cap 10/31/18 08/11/20 History exemestane 25 mg tablet 25 mg PO DAILY@1200 tab 10/31/18 08/11/20 History aspirin [Enteric Coated Aspirin] 81 mg PO HS 01/23/19 08/11/20 History clopidogrel 75 mg tablet 75 mg PO QAM #90 tab 12/29/19 08/11/20 Rx metoprolol succinate 50 mg 50 mg PO HS #90 tab 01/16/20 08/11/20 Rx tablet,extended release 24 hr amlodipine 10 mg PO QAM 02/27/20 08/11/20 History rosuvastatin 10 mg tablet 10 mg PO HS #90 tab 04/08/20 08/11/20 Rx lansoprazole 30 mg capsule,delayed 30 mg PO DAILY #30 cap 06/03/20 08/11/20 Rx release ondansetron 4 mg disintegrating 4 mg PO Q6H PRN #90 tab 06/03/20 08/11/20 Rx tablet acetaminophen 650 mg PO Q4H PRN #30 tab 07/03/20 08/11/20 Rx methadone 5 mg tablet 2.5 mg PO BID 30 Days #30 tab 07/27/20 08/11/20 Rx buspirone 5 mg PO DAILY PRN 08/09/20 08/11/20 History gabapentin 200 mg PO HS 08/09/20 08/11/20 History Past Med/Surg History Medical History (Updated 08/11/20 @ 02:07 by Mavis Penn MD) AAA (abdominal aortic aneurysm) PCP monitoring. "Mild fusiform aneurysmal dilatation of the distal thoracic and abdominal aorta." per 02/27/[address] CAD (coronary artery disease) Severe multivessel coronary artery diseaseoccluded distal right, occluded distal circumflex, 90% focal stenosis in mid circumflex into OM1 - follows with Dr. Pfeiffer Cancer of left breast, stage 1 (07/23/15) Chronic diastolic CHF (congestive heart failure) Degenerative joint disease, multiple joints on both sides of body Dyslipidemia ESRD (end stage renal disease) on dialysis started dialysis 12/2019 - [facility] - follows with Dr. Kaur Fibromyalgia GERD (gastroesophageal reflux disease) History of breast cancer Lt lumpectomy/chemo/radiation 2017 History of femoral angiogram History of myocardial infarction silent -- informed in 2018 of evidence of previous [place] History of skin cancer removed History of stent insertion of renal artery Lt History of ulcerative colitis Hypertension Mitral regurgitation Osteoarthritis PAD (peripheral artery disease) Peripheral neuropathy Right renal artery stenosis h/o failed attempt to stent Rt renal artery per pt - atheroemboli to her feet and kidneys Small bowel obstruction Spinal stenosis Surgical History History of anesthesia reaction "easy to put out and hard to wake up" History of breast biopsy History of cardiac catheterization 2017 [place] -abn stress test - no stents History of colectomy No colostomy, anastamosis of small bowel. History of colonoscopy History of esophagogastroduodenoscopy (EGD) History of lumpectomy of left breast History of vascular access device temporary dialysis catheter to Rt chest History of vascular surgery 03/22/2020 DR Pfeiffer [facility] stents to BLLE Family History Mother Colon cancer Cardiac disorder Hypertension Father Colon cancer Cardiac disorder Cancer Family/Other Coronary arteriosclerosis Other No family history of adverse response to anesthesia Social History Smoking Status: Former smoker Second Hand Exposure: No; Hx Alcohol Use: No Hx Substance Use: No Preferred Language: Kinyarwanda Communication Ability: Effective Assistant Pressman Required: No Beliefs That Will Affect Care: None marital status: Current Living Situation: Spouse current occupational status: retired How many Children do You have: 1 How many Children do You have Comment: not local. able to assist with care as needed. Feels Safe at Home: Yes Diet Comment: renal diet during the past year weight has: decreased > 10 lbs Assistive Devices: Denture - Upper and Glasses Review of Systems Constitutional: no fever, no chills, no sweats and no fatigue Eyes: no blind spots and no discharge Ear, Nose, Mouth, Throat: no hearing loss and no nasal congestion Respiratory: no cough and no dyspnea Cardiovascular: no chest pain, no dyspnea on exertion and no edema Gastrointestinal: + abdominal pain, + nausea, + vomiting and + diarrhea/loose stools; no constipation and no blood in stools Genitourinary: no dysuria Musculoskeletal: no joint pain and no myalgia Neurologic: no tingling, no numbness and no headache(s) Endocrine: no fatigue Physical Exam Physical Exam: Constitutional: thin elderly woman laying in bed holding her abdomen appearing uncomfortable Eyes: EOMI, pupils equal and reactive bilaterally, no scleral icterus Cardiac: RRR, no murmurs, gallops or rubs. Normal S1, S2 Pulm: CTA BL, no wheezes, rhonchi, crackles or rubs, moving air well throughout both lungs Abd: soft, distended, TTP in RLQ and LUQ, hyperactive bowel sounds, no rebound or guarding Extremities: 2+ peripheral pulses, no edema Feet: large black ischemic section of right great toe that is chronic Neuro: no focal deficits, moving all 4 limbs, A&Ox3 Results & Data Results & Data ([facility]) Vital Signs (Past 12 Hours) Vital Signs Temp Pulse Resp BP Pulse Ox 08/11/20 00:28 36.4 C L 114 H 28 H 174/112 H 95 Laboratory Results WBC 6.86 K/uL (4.8-10.8) 08/11/20 00:30 RBC 3.50 M/uL (4.2-5.4) L 08/11/20 00:30 Hgb 10.7 g/dL (12.0-16.0) L 08/11/20 00:30 Hct 33.5 % (37-47) L 08/11/20 00:30 MCV 95.7 fL (80-100) 08/11/20 00:30 MCH 30.6 pg (25-34) 08/11/20 00:30 MCHC 31.9 g/dL (32-36) L 08/11/20 00:30 RDW Std Deviation 55.9 fL (36.4-46.3) H 08/11/20 00:30 RDW Coeff of Max 15.9 % (11.5-14.5) H 08/11/20 00:30 Plt Count 357 K/uL (130-400) 08/11/20 00:30 MPV 8.9 fL (7.4-10.4) 08/11/20 00:30 Immature Gran % (Auto) 0.1 % 08/11/20 00:30 Neut % (Auto) 72.7 % 08/11/20 00:30 Lymph % (Auto) 11.5 % 08/11/20 00:30 [place] % (Auto) 15.6 % 08/11/20 00:30 Eos % (Auto) 0.0 % 08/11/20 00:30 Baso % (Auto) 0.1 % 08/11/20 00:30 Neut # (Auto) 4.98 K/uL (1.4-6.5) 08/11/20 00:30 Lymph # (Auto) 0.79 K/uL (1.2-3.4) L 08/11/20 00:30 [place] # (Auto) 1.07 K/uL (0.11-0.59) H 08/11/20 00:30 Eos # (Auto) 0.00 K/uL (0-0.5) 08/11/20 00:30 Baso # (Auto) 0.01 K/uL (0-0.2) 08/11/20 00:30 Immature Gran # (Auto) 0.01 K/uL (0.00-0.02) 08/11/20 00:30 PT 11.7 Seconds (9.0-12.0) 08/11/20 00:30 INR 1.2 (0.9-1.1) H 08/11/20 00:30 APTT 29.1 Seconds (21.0-31.0) 08/11/20 00:30 PTT Ratio 1.1 08/11/20 00:30 Sodium 135 mmol/L (136-145) L D 08/11/20 00:30 Potassium 3.5 mmol/L (3.5-5.1) D 08/11/20 00:30 Chloride 97 mmol/L (98-107) L 08/11/20 00:30 Carbon Dioxide 25 mmol/L (21-32) 08/11/20 00:30 Anion Gap 13.0 (3-11) H 08/11/20 00:30 BUN 39 mg/dl (7-18) H 08/11/20 00:30 Creatinine 6.54 mg/dl (0.6-1.2) H* D 08/11/20 00:30 Est Cr Clr Drug Dosing 4.8 ml/min 08/11/20 00:30 Est GFR ( Amer) 6.3 ml/min 08/11/20 00:30 Est GFR (Non-Af Amer) 5.4 ml/min 08/11/20 00:30 BUN/Creatinine Ratio 5.9 (10-20) L 08/11/20 00:30 Glucose 136 mg/dl (70-99) H 08/11/20 00:30 Lactate 1.9 mmol/L (0.4-2.0) 08/11/20 00:30 Calcium 9.5 mg/dl (8.5-10.1) 08/11/20 00:30 Magnesium 2.0 mg/dl (1.8-2.4) 08/11/20 00:30 Total Bilirubin 0.4 mg/dl (0.2-1) 08/11/20 00:30 Direct Bilirubin 0.2 mg/dl (0-0.2) 08/11/20 00:30 AST 15 U/L (15-37) 08/11/20 00:30 ALT 9 U/L (12-78) L 08/11/20 00:30 Alkaline Phosphatase 58 U/L (45-117) 08/11/20 00:30 Troponin I 0.178 ng/ml (0-0.045) H* 08/11/20 00:30 Total Protein 7.5 gm/dl (6.4-8.2) 08/11/20 00:30 Albumin 3.0 gm/dl (3.4-5.0) L 08/11/20 00:30 Lipase 114 U/L (73-393) 08/11/20 00:30 Resident Activity Tracking Resident Involvement: Resident Care Provided Care Provided: Adult Hospital Medicine (1) CAD (coronary artery disease) Associated angina: without angina Coronary Disease-Associated Artery/Lesion type: [place] artery [place] vs. transplanted heart: [place] heart Qualified Code(s): I25.10 - Atherosclerotic heart disease of [place] coronary artery without angina pectoris (2) Abdominal aortic aneurysm Presence of rupture: without rupture Qualified Code(s): I71.4 - Abdominal aortic aneurysm, without rupture (3) Anemia Anemia type: unspecified type Qualified Code(s): D64.9 - Anemia, unspecified (4) GERD (gastroesophageal reflux disease) Esophagitis presence: esophagitis presence not specified Qualified Code(s): K21.9 - Gastro-esophageal reflux disease without esophagitis (5) Hypertension Hypertension type: renovascular hypertension Qualified Code(s): I15.0 - Renovascular hypertension
[2020-08-11 01:26] LABS: BUN Creatinine Ratio 5.9 (10-20); Bilirubin Direct 0.2 mg/dl (0-0.2); Bilirubin,Total 0.4 mg/dl (0.2-1); Calcium 9.5 mg/dl (8.5-10.1); Creatinine Clr Calc Pharmacy 4.8 ml/min; Est GFR (African American) 6.3 ml/min; Est GFR (Non-African American) 5.4 ml/min; Potassium 3.5 mmol/L (3.5-5.1); Total Protein 7.5 gm/dl (6.4-8.2); Troponin I 0.178 ng/ml (0-0.045)
[2020-08-11] MEDS ORDERED: ACETAMINOPHEN 325 MG TAB PO PRN (02:58)
[2020-08-11] MEDS ORDERED: busPIRone 5 MG TAB PO PRN (02:58)
[2020-08-11] MEDS: SODIUM CHLORIDE 0.9% 1000ML 1,000 ML IV SCH ×2 (04:16→16:28)
--- NOTE | 2020-08-11 07:19 | XRay Report ---
XR chest 1V portable HISTORY: vomiting, epigastric pain COMPARISON: Chest 07/02/2020. FINDINGS: Left hilar prominence is consistent with aneurysmal dilatation of the descending thoracic a ruiz as seen on the prior CT examination. Linear density at the left lung base favor scarring or subs egmental atelectasis. No new focal lung consolidations to suggest pneumonia. No evidence for pulmonar y edema. The heart is top normal in size. IMPRESSION: 1. No acute process within the chest. 2. Persistent aneurysmal dilatation of the descending thoracic aorta. ACT 112: Negative or not required by law. Electronically signed by: Chris Nava M.D. 08/11/2020 7:18 AM
--- NOTE | 2020-08-11 07:34 | XRay Report ---
KUB HISTORY: vomiting, recent small bowel obstruction COMPARISON: Abdomen and pelvis CT 08/09/2020. FINDINGS: Multiple dilated gas-filled loops of small bowel seen within the abdomen consistent with a small bowel obstruction. No renal calculi. No ureteral calculi. Questionable pneumatosis within a di lated loop of jejunum in the left side the abdomen. The punctate focus of gas overlying the right hep atic lobe. This may represent a loop of small bowel. IMPRESSION: Persistent small bowel obstruction pattern. Possible pneumatosis within the jejunal loop at the left side of the abdomen. Follow-up abdomen and pelvis CT recommended. This finding was called/faxed to [facility] referring physician following dictation. ACT 112: Negative or not required by law. Electronically signed by: Chris Nava M.D. 08/11/2020 7:32 AM
[2020-08-11 08:21] LABS: Basophils # (auto) 0.01 K/uL (0-0.2); Basophils % (auto) 0.1 %; Hematocrit (blood only) 32.4 % (37-47); Hemoglobin 10.1 g/dL (12.0-16.0); Immature Granulocytes # (auto) 0.03 K/uL (0.00-0.02); Immature Granulocytes % (auto) 0.4 %; Lymphocytes # (auto) 1.05 K/uL (1.2-3.4); Lymphocytes % (auto) 13.1 %; Mean Corpuscular Hemoglobin 29.9 pg (25-34); Mean Corpuscular Hgb Conc 31.2 g/dL (32-36); Mean Corpuscular Volume 95.9 fL (80-100); Mean Platelet Volume 8.9 fL (7.4-10.4); Monocytes # (auto) 1.14 K/uL (0.11-0.59); Monocytes % (auto) 14.2 %; Neutrophils # (auto) 5.79 K/uL (1.4-6.5); Neutrophils % (auto) 72.2 %; Platelet Count 330 K/uL (130-400); RDW Standard Deviation 56.1 fL (36.4-46.3); Red Blood Count 3.38 M/uL (4.2-5.4); White Blood Count 8.02 K/uL (4.8-10.8)
[2020-08-11] MEDS ORDERED: LANSOPRAZOLE 30 MG SOLTAB PO SCH (09:00)
[2020-08-11] MEDS ORDERED: POLYETHYLENE (MIRALAX) 17 GM PACK PO SCH (09:00)
[2020-08-11] MEDS ORDERED: bisacodyL 10 MG SUPP PR SCH (09:00)
[2020-08-11] MEDS ORDERED: CLOPIDOGREL BISULFATE 75 MG TAB PO SCH (09:00)
[2020-08-11] MEDS ORDERED: amLODIPine BESYLATE 5 MG TAB PO SCH (09:00)
[2020-08-11 09:01] LABS: BUN Creatinine Ratio 6.5 (10-20); Creatinine Clr Calc Pharmacy 4.8 ml/min; Est GFR (African American) 6.3 ml/min; Est GFR (Non-African American) 5.5 ml/min; Potassium 3.9 mmol/L (3.5-5.1)
--- NOTE | 2020-08-11 09:10 | Medical Student Progress Note ---
Date of Service August 11, 2020 Assessment & Plan (1) Small bowel obstruction: Mrs. Adriana Arnett is a 80 yo female with an extensive PMH including ESRD with dialysis, PAD with ischemia on toes, CAD, who presented to the ED 4 hours post-discharge with nausea, vomiting, and abdominal pain who was found to have SBO on KUB xray. 1) Small bowel obstruction She was given IV fluids in the ED and NG tube was placed. -NG tube decompression -IV fentanyl for pain control -Continue with NPO 2) ESRD Due for dialysis today with MWF regimen. -Cre 6.54 which is down from her past admission. - appreciate recommendations and support from Nephrology, follows with Dr. Kaur 3) CAD - Stent to circumflex placed 07/02/20 - cont DAPT, statin 4) PAD with ischemic ulcers on tips of toes -Pain control managed alongside abdominal pain. DVT Prophylaxis: DAPT F/E/N: fluid restriction Full code Dispos: Med/Surg Admission and Anticipated Discharge Date Admission Date: August 11, 2020 Supervising Attestation Patient seen and examined with PGY-2 Dr. Escobar. Agree with history, exam findings, assessment and plan of care as outlined with the following updates: In brief, Ms. Arnett is an 80 year old female with history of ESRD on HD, CAD, chronic pain and past colectomy for ulcerative colitis re-admitted with a small bowel obstruction now with intestinal pneumatosis confirmed on CT. NGT was placed in the ED. She is very certain that she does not want surgical intervention for the SBO/intestinal pneumatosis. She discussed with her radiation control specialist and PCP, Dr. Kaur, that she does not wish to prolong her life with dialysis. She has discussed this extensively in the past with her , who is at the bedside, and her son, who lives in [facility]. She wants to be comfortable. 1. SBO with intestinal penumatosis. Continue with NGT. Ok to continue with ice chips for comfort. She has been seen by general surgery and surgical options were discussed. She does not wish to have surgery. 2. ESRD on HD, MWF. She has decided that she does not want to continue with dialysis. 3. CAD/PAD. Recent cardiac stent. Ischemic ulcers on toes. Low suspicion for acute ischemia. 4. Chronic pain. Followed by palliative in the outpatient setting. Pt is concerned about drowsiness related to fentanyl and methadone. Would prefer to stick with tylenol and tramadol. Ok for IV tylenol. 5. Goals of care: she would like to remain comfortable. She does not wish to continue with dialysis or have any surgical intervention. She and her family understand that it is likely that without dialysis she may relatively soon. She would like to be home and able to enjoy the last days with her family. She does not want pain medication that will make her too drowsy. Her is in agreement with her wishes. Her son has arrived from [facility]. He is and has a son. He plans to have his and son come to see his mom on Sunday. Plan at this time would be home with hospice. Ideally, would like to be able to keep the NGT in for comfort. She would like to continue with gentle IVFs as this has helped with her dry mouth. Appreciate any additional suggestions for care going forward from palliative. I attempted to contact her PCP, Dr. Kaur, twice this afternoon via the hospital hotbed lever operator and once via secure [employer], but was not successful. We will try again tomorrow. Dispo: Would like to move her to a private room. Ok for family members to be with her outside of visiting hours. If we can get everything arranged for hospice tomorrow, would like to get her home to be with her family. Subjective Mrs. Arnett is a 80 yo female with an extensive medical history who present 4 hours post-discharge with nausea/vomiting and abdominal pain following previous SBO treatment. She presented at the ER dehydrated and uncomfortable and was given fentanyl for pain control and IV fluids. A KUB showed SBO. An NG tube was placed and lots of gastric outs. This morning is very tired and reports feeling "queasy" in her stomach, but with no pain. She denies any vomiting or bowel movements. She denies any chest pain, shortness of breath, palpitations. Physical Exam Physical Exam: Gen: Very sleepy, cooperative, oriented. Cardio: Irregularly irregular rhythm with no rubs, mummers, or gallops. Distant heart sounds. Pulm: CTA B/L GI: Mildly distended, normoactive bowel sounds. There's is tenderness on the right side in the upper and lower quadrants. There was some involuntary guarding and rebounding. Results & Data ([facility]) Vital Signs (Past 12 Hours) Vital Signs Temp Pulse Pulse Resp BP BP Pulse Ox 08/11/20 08:00 108 H 08/11/20 07:12 37.1 C 107 H 18 151/88 H 92 08/11/20 03:46 124 H 08/11/20 02:58 36.4 C L 20 162/98 H 95 08/11/20 02:00 118 H 19 151/93 H 08/11/20 01:30 117 H 16 153/97 H 95 08/11/20 01:00 118 H 21 170/103 H 93 08/11/20 00:30 114 H 14 174/112 H 97 08/11/20 00:28 36.4 C L 114 H 28 H 174/112 H 95 08/11/20 00:10 120 H 15 100 08/11/20 00:07 122 H 23 143/109 H 92
[2020-08-11] MEDS ORDERED: OPTIRAY 300 100mL IV ONE (09:11)
[2020-08-11] MEDS ORDERED: HEPARIN SOD (PORCINE) 1000 UNIT/ML IV ONE (09:23)
[2020-08-11] MEDS ORDERED: SODIUM CHLORIDE 0.9% 1000ML 1,000 ML IV PRN (09:23)
--- NOTE | 2020-08-11 10:44 | CT Scan Report ---
ABDOMEN AND PELVIS CT WITH IV CONTRAST CT DOSE: 264.50 mGy.cm HISTORY: Follow up study in a patient with small bowel obstruction. Possible pneumatosis on KUB TECHNIQUE: Multiaxial CT images of the abdomen and pelvis were performed following the IV administrat ion of 89 cc of Optiray, A dose lowering technique was utilized adhering to the principles of ALARA. COMPARISON STUDY: KUB of same day, CT abdomen pelvis 08/09/2020 FINDINGS: Cardiomegaly with coronary artery calcifications. Dependent subsegmental bibasilar opacitie s suggest atelectasis/scarring with mild bibasilar bronchiectasis. The spleen, moderately atrophic pa ncreas and adrenal glands are unremarkable. Gallbladder distention with mild bladder wall thickening and trace pericholecystic fluid. No biliary ductal dilation. Intrahepatic portal venous air. Patency of the hepatic and portal veins. No hepatic mass identified. There is no hydronephrosis. Extensive atheromatous and atherosclerotic plaque the abdominal aorta. De scending thoracic aortic dilation measures up to 4.3 cm. Fusiform abdominal aortic aneurysm measures 3.7 x 3.7 cm. Patent left renal artery stent grafts. No adenopathy. Enteric tube distal tip projects in the mid stomach. There is a large amount of pneumatosis intestina lis within the abdominal left upper quadrant and mid pelvis. There is persistent small bowel obstruct ion with dilated small bowel loops measuring up to 4.0 cm. There are suggested postoperative changes of the colon redemonstrated. Transition dilated to decompressed bowel noted within the abdominal righ t lower quadrant. Mild to moderate wall thickening of multiple loops of small bowel within the mid pe lvis on image 281. Increasing amount of interloop edema. Trace abdominal pelvic ascites. No abscess. Postoperative changes of the left breast with unchanged 1.5 cm collection. Degenerative changes of th e spine, pelvis and hips. IMPRESSION: 1. High-grade small bowel obstruction redemonstrated with transition point present within the abdomin al right lower quadrant. 2. Confirmation of the considerable amount of pneumatosis intestinalis within the abdomen and pelvis. This finding in conjunction with increasing amount of intraloop edema and areas of small bowel wall thickening and portal venous gas raises the possibility of small bowel ischemia. Surgical consultatio n advised. 3. No pneumoperitoneum. 4. Small volume of abdominopelvic ascites. 5. Distal tip of enteric tube terminates in the mid stomach. 6. Additional findings as above. ACT 112: Negative or not required by law. The above report was generated using voice recognition software. It may contain grammatical, syntax o r spelling errors. Electronically signed by: Parveen Browning M.D. 08/11/2020 10:43 AM
--- NOTE | 2020-08-11 10:54 | Nephrology Consultation ---
Date of Consultation August 11, 2020 Assessment & Plan (1) ESRD (end stage renal disease) on dialysis: Mrs. Arnett has end-stage renal disease secondary to atherosclerotic cardiovascular disease as well as atheroemboli. She would never be considered a transplant candidate given her multiple comorbidities. She has breast cancer which has been treated. She has a history of coronary artery disease for which she has gone through interventions. She has an abdominal aortic aneurysm and peripheral vascular disease. She is now rehospitalized with a small bowel obstruction. She realizes that surgery is a possibility for her and she is uncertain as to whether or not she could survive surgery. With all of her comorbidities, she has come to the conclusion that she would prefer to discontinue dialysis treatments. She fully recognizes that this would most certainly lead to her within a relatively short period of time. I think she is of sound mind. Given all of her medical issues, I do not think that her decision is inappropriate. At this point, I think we may be prolonging her as opposed to extending her life. I told her that I support her decision to discontinue treatments. Given the above decision, an emphasis should be placed on palliative care and hospice care. She should receive analgesics when necessary although she tolerates them poorly. Antiemetics would be helpful as well as would appropriate sedation. I will continue to stop by and see her during her hospitalization. Obviously, she will always have the opportunity to change her mind. I have tried to reach her to discuss this with him but was unable to today. I will continue to try. (2) Arteriosclerotic cardiovascular disease (ASCVD): (3) Abdominal aortic aneurysm: (4) CAD (coronary artery disease): (5) Small bowel obstruction: (6) Cancer of left breast, stage 1: History of Present Illness Attending Physician: Mrs. Arnett is an 80-year-old woman with multiple medical issues. Her extensive and complicated history is outlined on my prior consultation note of earlier this week (August 09). Her history includes a history of ulcerative colitis for which she had a colectomy and ileorectal anastomosis done about 40 years ago at the [facility]. She also has a history of generalized cardiovascular disease. She has a known abdominal aortic aneurysm. He has a history of left renal artery stenosis that was treated with an angioplasty and deployment of a drug-eluting stent several years ago. More recently, about 2 years ago, she presented with a rising serum creatinine and a more elevated blood pressure. Her evaluation was consistent with a right renal artery stenosis. She was referred to the [facility] where she underwent an attempted angioplasty of the documented right renal artery stenosis. The stenosis was tight. During the procedure she developed severe back pain, nausea and weakness. The procedure was terminated. Subsequently, it became evident that she developed atheroembolic disease. She quickly progressed to end-stage renal disease requiring dialysis. She had had interventions to her legs because of nonhealing ulcers even prior to the atheroemboli. Additionally, since her episode of atheroemboli she did have attempts at angioplasty of her peripheral blood vessels with limited relief. She has had constant pain in in her toes and evidence of ischemia and early gangrene of several toes. She has been on dialysis. Although dialysis treatments themselves are uncomplicated, her pain is becoming increasingly intense and lying in a chair or bed for 3-1/2 hours for each treatment has become very difficult for her. Post treatment, she often feels poorly with generalized weakness and continued pain. Additionally, since starting dialysis she did have an episode of congestive heart failure associated with some chest discomfort. A cardiac catheterization was done and an intervention was done. Post procedure, she did feel better and has not had any evidence of significant congestive heart failure since that time. Any evidence of volume overload has been treated with more aggressive volume reduction. Additionally, she has a history of breast cancer within the past 3 years and has undergone chemotherapy for that. Most recently, she presented with evidence of a small bowel obstruction presumably in the right lower quadrant. She was admitted to this hospital for a period of about 3 days. It appeared as if she improved significantly with nasogastric suction. She was discharged yesterday. On the way home, she started to vomit and have more intense abdominal pain. Her vomiting continued and the pain became more intense and across her entire lower abdomen. She said that she felt as if there was a board or tight belt around her abdomen. Although she did have 1 diarrheal stools since her discharge, she has had none since. She was readmitted for care. She has come to the decision that all of her medical issues have become too much for her. She does not see a "light at the end of the tunnel." She now wishes to discontinue dialysis treatments fully recognizing that it would likely result in her within a relatively short period of time. She has apparently discussed this with her and family. She says that this is her personal decision and she hopes that she has the support of her caretakers and family which she does. Allergies Allergy/AdvReac Type Severity Reaction Status Date / Time hydrocodone Allergy Intermediate RASH, HIVES Verified 08/11/20 00:25 Sulfa (Sulfonamide AdvReac Intermediate "SULFA Verified 08/11/20 00:25 Antibiotics) DRUGS": N/V hydrochlorothiazide AdvReac Mild GI Verified 08/11/20 00:25 SYMPTOMS,NAUSEA AND VOMITING spironolactone AdvReac Mild GI Verified 08/11/20 00:25 SYMPTOMS,NAUSEA AND VOMITING Home Medications Medication Instructions Recorded Confirmed Type cholecalciferol (vitamin D3) 50 2,000 units PO QAM 10/16/18 08/11/20 History mcg (2,000 unit) capsule coenzyme Q10 200 mg capsule 200 mg PO QAM cap 10/31/18 08/11/20 History exemestane 25 mg tablet 25 mg PO DAILY@1200 tab 10/31/18 08/11/20 History aspirin [Enteric Coated Aspirin] 81 mg PO HS 01/23/19 08/11/20 History clopidogrel 75 mg tablet 75 mg PO QAM #90 tab 12/29/19 08/11/20 Rx metoprolol succinate 50 mg 50 mg PO HS #90 tab 01/16/20 08/11/20 Rx tablet,extended release 24 hr amlodipine 10 mg PO QAM 02/27/20 08/11/20 History rosuvastatin 10 mg tablet 10 mg PO HS #90 tab 04/08/20 08/11/20 Rx lansoprazole 30 mg capsule,delayed 30 mg PO DAILY #30 cap 06/03/20 08/11/20 Rx release ondansetron 4 mg disintegrating 4 mg PO Q6H PRN #90 tab 06/03/20 08/11/20 Rx tablet acetaminophen 650 mg PO Q4H PRN #30 tab 07/03/20 08/11/20 Rx methadone 5 mg tablet 2.5 mg PO BID 30 Days #30 tab 07/27/20 08/11/20 Rx buspirone 5 mg PO DAILY PRN 08/09/20 08/11/20 History gabapentin 200 mg PO HS 08/09/20 08/11/20 History Patient History Medical History (Updated 08/11/20 @ 10:43 by Terrance Kaur MD) AAA (abdominal aortic aneurysm) PCP monitoring. "Mild fusiform aneurysmal dilatation of the distal thoracic and abdominal aorta." per 02/27/[address] CAD (coronary artery disease) Severe multivessel coronary artery diseaseoccluded distal right, occluded distal circumflex, 90% focal stenosis in mid circumflex into OM1 - follows with Dr. Pfeiffer Cancer of left breast, stage 1 (07/23/15) Chronic diastolic CHF (congestive heart failure) Degenerative joint disease, multiple joints on both sides of body Dyslipidemia ESRD (end stage renal disease) on dialysis started [facility] 12/2019 [facility] - follows with Dr. Kaur Fibromyalgia GERD (gastroesophageal reflux disease) History of breast cancer Lt lumpectomy/chemo/radiation 2016 History of femoral angiogram History of myocardial infarction silent -- informed in 2018 of evidence of previous PR History of skin cancer removed History of stent insertion of renal artery Lt History of ulcerative colitis Hypertension Mitral regurgitation Osteoarthritis PAD (peripheral artery disease) Peripheral neuropathy Right renal artery stenosis h/o failed attempt to stent Rt renal artery per pt - atheroemboli to her feet and kidneys Small bowel obstruction Spinal stenosis Surgical History History of anesthesia reaction "easy to put out and hard to wake up" History of breast biopsy History of cardiac catheterization 2017 [place] -abn stress test - no stents History of colectomy No colostomy, anastamosis of small bowel. History of colonoscopy History of esophagogastroduodenoscopy (EGD) History of lumpectomy of left breast History of vascular access device temporary dialysis catheter to Rt chest History of vascular surgery 03/22/2020 DR Pfeiffer [facility] stents to BLLE Family History Mother Colon cancer Cardiac disorder Hypertension Father Colon cancer Cardiac disorder Cancer Family/Other Coronary arteriosclerosis Other No family history of adverse response to anesthesia Social History Smoking Status: Never smoker Second Hand Exposure: No; Hx Alcohol Use: No Hx Substance Use: No Preferred Language: Moldovan Communication Ability: Effective Unit Director Required: No Beliefs That Will Affect Care: None marital status: Current Living Situation: Spouse current occupational status: retired How many Children do You have: 1 How many Children do You have Comment: not local. able to assist with care as needed. Other Information That Helps Us Care for You: No Feels Safe at Home: Yes Safety Concerns: Feels Safe At This Time Diet Comment: renal diet during the past year weight has: decreased > 10 lbs Assistive Devices: Denture - Lower and Glasses Physical Exam Physical Exam: At the time seen by me, Mrs. Arnett was lying in bed and appeared to be fairly comfortable. A nasogastric tube was in place. Her blood pressure was 151/88 with a pulse of 108 and regular. Respiratory rate was 18 with an oxygen saturation of 92% on room air. Her temperature 37.1 degrees. Her skin shows normal skin turgor. She has no rash or infiltrative skin disease. She has scars from prior procedures. She has gangrenous changes of the first and second toe of the right foot and the fifth toe of the left foot. She has scabs on several other toes bilaterally. She has some degree of alopecia on her head present since her chemotherapy. There is no palpable lymphadenopathy. Her head is grossly normal. Eyes are grossly normal. The fundi were not examined. Ears, nose, mouth and throat are unremarkable. Oral mucous membranes are moist. The nasogastric tube is in place. Her neck is supple. There is no jugular venous distention, carotid bruit or thyromegaly. Her chest is clear to auscultation. There are no wheezes, rales or rhonchi. Cardiac exam shows a regular rhythm. She has a mild tachycardia. S1 and S2 are normal. There is a systolic ejection murmur along the left sternal border radiating to both the base and the apex. Her abdomen is diffusely tender particularly in the lower abdomen. Bowel sounds are quiet with a nasogastric tube clamped. There is no definite organomegaly or mass but the exam is made difficult because of her discomfort. Extremities show the ischemic changes of her toes noted above. I do not hear any femoral bruits. She has an AV fistula in the right upper arm with a few dialysis needle track edwards over the fistula. Her neurologic exam shows no focal or lateralizing changes. She is oriented in 3 spheres. She appears perfectly rational and at peace with her decision. Results & Data ([facility]) Vital Signs (Past 12 Hours) Vital Signs Temp Pulse Pulse Resp BP BP Pulse Ox 08/11/20 08:00 108 H 08/11/20 07:12 37.1 C 107 H 18 151/88 H 92 08/11/20 03:46 124 H 08/11/20 02:58 36.4 C L 20 162/98 H 95 08/11/20 02:00 118 H 19 151/93 H 08/11/20 01:30 117 H 16 153/97 H 95 08/11/20 01:00 118 H 21 170/103 H 93 08/11/20 00:30 114 H 14 174/112 H 97 08/11/20 00:28 36.4 C L 114 H 28 H 174/112 H 95 08/11/20 00:10 120 H 15 100 08/11/20 00:07 122 H 23 143/109 H 92 PG Care Time/CCT Total # of Minutes Spent Total Time Spent with Patient: Total time spent is greater than 50% in coordination of care (as documented) at patient's floor/unit and/or counseling patient: 75 min. Coding Level of Care Code 90495 Inpt Consult Level 5 Diagnoses ESRD (end stage renal disease) on dialysis N18.6; Z99.2 Arteriosclerotic cardiovascular disease (ASCVD) I25.10 Abdominal aortic aneurysm I71.4 Presence of rupture: without rupture CAD (coronary artery disease) I25.10 Coronary Disease-Associated Artery/Lesion type: [place] artery [place] vs. transplanted heart: [place] heart Associated angina: without angina Small bowel obstruction K56.609 Cancer of left breast, stage 1 C50.912; Z17.0 Estrogen receptor status: positive (1) Abdominal aortic aneurysm Presence of rupture: without rupture Qualified Code(s): I71.4 - Abdominal aortic aneurysm, without rupture (2) CAD (coronary artery disease) Coronary Disease-Associated Artery/Lesion type: [place] artery [place] vs. transplanted heart: [place] heart Associated angina: without angina Qualified Code(s): I25.10 - Atherosclerotic heart disease of [place] coronary artery without angina pectoris (3) Cancer of left breast, stage 1 Estrogen receptor status: positive Qualified Code(s): C50.912 - Malignant neoplasm of unspecified site of left female breast; Z17.0 - Estrogen receptor positive status [ER+]
[2020-08-11] MEDS: MoRPHine SULFATE 2 MG/ML CARP IV PRN ×2 (11:19→16:31)
--- NOTE | 2020-08-11 12:31 | Surgery Consultation ---
Date of Consultation August 11, 2020 Assessment & Plan (1) Small bowel obstruction: This is an 80y F with multiple medical issues including CAD s/p recent LAN on plavix, ESRD on HD, UC s/p colectomy in the 80's, CHF, breast cancer, PAD, & HTN who presents to the [facility] ED on 08/11/20 with complaints of abdominal pain, nausea/vomiting. Of significance the patient was just discharged on 08/10 from a hospitalization due to small bowel obstruction, managed conservatively. Patient felt well yesterday during the AM and afternoon, was passing flatus and BM's, and pain was resolved. She tolerated an NGT clamping trial and it was subsequently removed and she was started on clear liquids and she was discharged to home. Since going home she has had return of symptoms including abdominal pain, nausea, and multiple episodes of vomiting prompting her to return. Workup with a CT a/p has shown findings concerning for a high-grade SBO with transition point present within the abdominal right lower quadrant. There is also a considerable amount of pneumatosis intestinalis within the abdomen and pelvis, raising the possibility of small bowel ischemia. WBC 8, Lactate: 1.9. Patient tachycardic to the 100-120's with otherwise stable vitals. On examination patient's abdomen is distended and tender to palpation across the mid-abdomen. We have reviewed her wishes to stop dialysis treatments as outlined in the rawhide trimmer note. We discussed the consideration of surgery given her CT and physical exam findings. She is adamant about not wanting to pursue surgical intervention. She said she has discussed her wishes with her family and that they will respect her decisions. If patient were to agree to surgical intervention it would be necessary to her also to agree to receiving dialysis as well. She understands that her decisions would warrant pursuing palliative care and a focus on comfort measures given that especially without dialysis her decision will likely lead towards . She is aware & agreeable to this. Please call us back with any questions/concerns. Supervising Physician Co-Signing Physician Notes Patient seen and examined, labs and imaging reviewed, agree with above. Patient with multiple medical problems including chronic kidney disease on dialysis as well as cardiac disease. She also has a history of UC with a history of total proctocolectomy with ileoanal anastomosis. Recently admitted for small bowel obstruction, appeared to have improved somewhat wanted to go home for dialysis. She was discharged just the other day and almost immediately started having symptoms. She returned to the emergency department and imaging revealed high- grade small bowel obstruction, now with pneumatosis of the bowel. On exam she is afebrile with a distended abdomen. Her vital signs are stable. Her abdomen is tender to palpation in the left lower and right lower quadrants. No overt peritoneal signs at this time. I reviewed the CT scan and agree with the diagnosis of high-grade bowel obstruction with pneumatosis. At this point the patient is already decided that she no longer wants dialysis. We discussed the recommendation for exploratory laparotomy given the concern for ischemic bowel in the setting of a high-grade bowel obstruction. At this point she does not want to continue to proceed with aggressive care. She is okay with an NG tube but would like to be moved to comfort measures. She has met with palliative care. She has discussed this with her family and they are all in agreement. Surgery will sign off at this time, call with questions or concerns History of Present Illness Attending Physician: Elías Rosenberg DO History of Present Illness This is an 80y F with multiple medical issues including CAD s/p recent LAN on plavix, ESRD on HD, UC s/p colectomy in the 80's, CHF, breast cancer, PAD, & HTN who presents to the [facility] ED on 08/11/20 with complaints of abdominal pain, nausea/vomiting. Of significance the patient was just discharged on 08/10 from a hospitalization due to small bowel obstruction. She was managed conservatively with NGT and bowel rest and IVF. She started feeling better yesterday, was passing flatus and BM's, and pain was resolved. She tolerated an NGT clamping trial and it was subsequently removed and she was started on clear liquids. She reported some gas feelings and burping after drinking samuel-chele, but pt still said she felt overall okay. She was discharged in the evening yesterday and patient reports on her drive home she started feeling nauseated. Once she got home she developed increasing abdominal pain and vomited multiple times. Due to her symptoms she reported back to the ER for evaluation. In the ER workup with a KUB and CT a/p showed findings concerning for a high-grade small bowel obstruction with transition point present within the abdominal right lower quadrant. There is also a considerable amount of pneumatosis intestinalis within the abdomen and pelvis. This finding in conjunction with increasing amount of intraloop edema and areas of small bowel wall thickening and portal venous gas raises the possibility of small bowel ischemia. Patient denies any further passage of flatus/BM since returning home. She was evaluated by the hospitalists and nephrology since admission and reports she does not want any further HD treatments stating she has been through so much already and given her multiple medical issues does not want to pursue any further dialysis treatments or invasive procedures should she need them, such as surgical intervention. Allergies Allergy/AdvReac Type Severity Reaction Status Date / Time hydrocodone Allergy Intermediate RASH, HIVES Verified 08/11/20 00:25 Sulfa (Sulfonamide AdvReac Intermediate "SULFA Verified 08/11/20 00:25 Antibiotics) DRUGS": N/V hydrochlorothiazide AdvReac Mild GI Verified 08/11/20 00:25 SYMPTOMS,NAUSEA AND VOMITING spironolactone AdvReac Mild GI Verified 08/11/20 00:25 SYMPTOMS,NAUSEA AND VOMITING Home Medications Medication Instructions Recorded Confirmed Type cholecalciferol (vitamin D3) 50 2,000 units PO QAM 10/16/18 08/11/20 History mcg (2,000 unit) capsule coenzyme Q10 200 mg capsule 200 mg PO QAM cap 10/31/18 08/11/20 History exemestane 25 mg tablet 25 mg PO DAILY@1200 tab 10/31/18 08/11/20 History aspirin [Enteric Coated Aspirin] 81 mg PO HS 01/23/19 08/11/20 History clopidogrel 75 mg tablet 75 mg PO QAM #90 tab 12/29/19 08/11/20 Rx metoprolol succinate 50 mg 50 mg PO HS #90 tab 01/16/20 08/11/20 Rx tablet,extended release 24 hr amlodipine 10 mg PO QAM 02/27/20 08/11/20 History rosuvastatin 10 mg tablet 10 mg PO HS #90 tab 04/08/20 08/11/20 Rx lansoprazole 30 mg capsule,delayed 30 mg PO DAILY #30 cap 06/03/20 08/11/20 Rx release ondansetron 4 mg disintegrating 4 mg PO Q6H PRN #90 tab 06/03/20 08/11/20 Rx tablet acetaminophen 650 mg PO Q4H PRN #30 tab 07/03/20 08/11/20 Rx methadone 5 mg tablet 2.5 mg PO BID 30 Days #30 tab 07/27/20 08/11/20 Rx buspirone 5 mg PO DAILY PRN 08/09/20 08/11/20 History gabapentin 200 mg PO HS 08/09/20 08/11/20 History Patient History Medical History AAA (abdominal aortic aneurysm) PCP monitoring. "Mild fusiform aneurysmal dilatation of the distal thoracic and abdominal aorta." per 02/27/[address] CAD (coronary artery disease) Severe multivessel coronary artery diseaseoccluded distal right, occluded distal circumflex, 90% focal stenosis in mid circumflex into OM1 - follows with Dr. Pfeiffer Cancer of left breast, stage 1 (07/23/15) Chronic diastolic CHF (congestive heart failure) Degenerative joint disease, multiple joints on both sides of body Dyslipidemia ESRD (end stage renal disease) on dialysis started dialysis 12/2019 - [facility] [place][note 3] - follows with Dr. Kaur Fibromyalgia GERD (gastroesophageal reflux disease) History of breast cancer Lt lumpectomy/chemo/radiation 2016 History of femoral angiogram History of myocardial infarction silent -- informed in 2018 of evidence of previous [place] History of skin cancer removed History of stent insertion of renal artery Lt History of ulcerative colitis Hypertension Mitral regurgitation Osteoarthritis PAD (peripheral artery disease) Peripheral neuropathy Right renal artery stenosis h/o failed attempt to stent Rt renal artery per pt - atheroemboli to her feet and kidneys Small bowel obstruction Spinal stenosis Surgical History History of anesthesia reaction "easy to put out and hard to wake up" History of breast biopsy History of cardiac catheterization 2017 [place] -abn stress test - no stents History of colectomy No colostomy, anastamosis of small bowel. History of colonoscopy History of esophagogastroduodenoscopy (EGD) History of lumpectomy of left breast History of vascular access device temporary dialysis catheter to Rt chest History of vascular surgery 03/22/2020 DR Pfeiffer [facility] stents to BLLE Family History Mother Colon cancer Cardiac disorder Hypertension Father Colon cancer Cardiac disorder Cancer Family/Other Coronary arteriosclerosis Other No family history of adverse response to anesthesia Social History Smoking Status: Never smoker Second Hand Exposure: No; Hx Alcohol Use: No Hx Substance Use: No Preferred Language: Persian Communication Ability: Effective Mud Mixer Required: No Beliefs That Will Affect Care: None marital status: Current Living Situation: Spouse current occupational status: retired How many Children do You have: 1 How many Children do You have Comment: not local. able to assist with care as needed. Other Information That Helps Us Care for You: No Feels Safe at Home: Yes Safety Concerns: Feels Safe At This Time Diet Comment: renal diet during the past year weight has: decreased > 10 lbs Assistive Devices: Denture - Upper and Glasses Review of Systems Constitutional: no fever and no chills Respiratory: no dyspnea Gastrointestinal: + abdominal pain, + bloating, + nausea and + vomiting Physical Exam Physical Exam: awake/alert Constitutional: no acute distress Respiratory: normal respiratory effort Gastrointestinal (Abdomen): Inspection/Auscultation: + abdomen distended Percussion/Palpation: + abdomen tender (ttp across mid abdomen) and abdomen soft Results & Data ([facility]) Vital Signs (Past 12 Hours) Vital Signs Temp Pulse Pulse Resp BP BP Pulse Ox 08/11/20 11:23 36.8 C 105 H 18 152/88 H 93 08/11/20 08:00 108 H 08/11/20 07:12 37.1 C 107 H 18 151/88 H 92 08/11/20 03:46 124 H 08/11/20 02:58 36.4 C L 20 162/98 H 95 08/11/20 02:00 118 H 19 151/93 H 08/11/20 01:30 117 H 16 153/97 H 95 08/11/20 01:00 118 H 21 170/103 H [address] WITH IV CONTRAST CT DOSE: 264.50 mGy.cm HISTORY: Follow up study in a patient with small bowel obstruction. Possible pneumatosis on KUB TECHNIQUE: Multiaxial CT images of the abdomen and pelvis were performed following the IV administration of 89 cc of Optiray, A dose lowering technique was utilized adhering to the principles of ALARA. COMPARISON STUDY: KUB of same day, CT abdomen pelvis 08/09/2020 FINDINGS: Cardiomegaly with coronary artery calcifications. Dependent subsegmental bibasilar opacities suggest atelectasis/scarring with mild bibasilar bronchiectasis. The spleen, moderately atrophic pancreas and adrenal glands are unremarkable. Gallbladder distention with mild bladder wall thickening and trace pericholecystic fluid. No biliary ductal dilation. Intrahepatic portal venous air. Patency of the hepatic and portal veins. No hepatic mass identified. There is no hydronephrosis. Extensive atheromatous and atherosclerotic plaque the abdominal aorta. Descending thoracic aortic dilation measures up to 4.3 cm. Fusiform abdominal aortic aneurysm measures 3.7 x 3.7 cm. Patent left renal artery stent grafts. No adenopathy. Enteric tube distal tip projects in the mid stomach. There is a large amount of pneumatosis intestinalis within the abdominal left upper quadrant and mid pelvis. There is persistent small bowel obstruction with dilated small bowel loops measuring up to 4.0 cm. There are suggested postoperative changes of the colon redemonstrated. Transition dilated to decompressed bowel noted within the abdominal right lower quadrant. Mild to moderate wall thickening of multiple loops of small bowel within the mid pelvis on image 281. Increasing amount of interloop edema. Trace abdominal pelvic ascites. No abscess. Postoperative changes of the left breast with unchanged 1.5 cm collection. Degenerative changes of the spine, pelvis and hips. IMPRESSION: 1. High-grade small bowel obstruction redemonstrated with transition point present within the abdominal right lower quadrant. 2. Confirmation of the considerable amount of pneumatosis intestinalis within the abdomen and pelvis. This finding in conjunction with increasing amount of intraloop edema and areas of small bowel wall thickening and portal venous gas raises the possibility of small bowel ischemia. Surgical consultation advised. 3. No pneumoperitoneum. 4. Small volume of abdominopelvic ascites. 5. Distal tip of enteric tube terminates in the mid stomach. 6. Additional findings as above. ACT 112: Negative or not required by law. The above report was generated using voice recognition software. It may contain grammatical, syntax or spelling errors. Electronically signed by: Parveen Browning M.D. 08/11/2020 10:43 AM PG Care Time/CCT Total # of Minutes Spent Total Time Spent with Patient: Total time spent is greater than 50% in coordination of care (as documented) at patient's floor/unit and/or counseling patient: Coding Level of Care Code 29247 Initial Inpt Care Lvl 1 Diagnoses Small bowel obstruction K56.609
--- NOTE | 2020-08-11 12:50 | Electrocardiogram Report ---
Test Reason : Blood Pressure : / mmHG Vent. Rate : 114 BPM Atrial Rate : 114 BPM P-R Int : 128 ms QRS Dur : 084 ms QT Int : 344 ms P-R-T Axes : 022 018 015 degrees QTc Int : 474 ms Sinus tachycardia with Premature supraventricular complexes Possible Left atrial enlargement Nonspecific ST abnormality Abnormal ECG When compared with ECG of 30-JUN-2020 03:46, Premature supraventricular complexes are now Present ST no longer depressed in Lateral leads T wave amplitude has decreased in Anterior leads Confirmed by Oscar Barker ([id number]) on 08/11/2020 12:49:34 PM Referred By: REFERRED SELF Confirmed By:Izaiah Barker
[2020-08-11] MEDS ORDERED: ondansetron HCL 6 MG in DEXTROSE 5% 50 ML IV PRN (17:24)
[2020-08-11] MEDS: HYDROmorphone INJ 0.5 MG/0.5 ML SYR IV PRN ×3 (18:25→22:52)
[2020-08-11] MEDS ORDERED: ACETAMINOPHEN 1,000 MG/100 ML VIAL IV PRN (20:52)
[2020-08-11] MEDS ORDERED: METOPROLOL SUCC 50MG EXT REL TAB PO SCH (21:00)
[2020-08-11] MEDS ORDERED: ASPIRIN 81 MG ECTAB PO SCH (21:00)
[2020-08-11] MEDS ORDERED: GABAPENTIN 100 MG CAP PO SCH (21:00)
[2020-08-11] MEDS ORDERED: ROSUVASTATIN CALCIUM 10 MG TAB PO SCH (21:00)
[2020-08-12] MEDS: HYDROmorphone INJ 0.5 MG/0.5 ML SYR IV PRN ×6 (01:06→20:24)
[2020-08-12] MEDS: SODIUM CHLORIDE 0.9% 1000ML 1,000 ML IV SCH ×2 (04:25→22:01)
--- NOTE | 2020-08-12 13:33 | Palliative Care Consultation ---
Date of Consultation August 12, 2020 History of Present Illness Reason for Consultation: goals of care Requesting Physician: Dr. Penn Attending Physician: Elías Rosenberg DO History of Present Illness 80 yo lady with ESRD who has been on hemodialysis. She has had ongoing problems with CAD, PAD and thromboembolic disease with multiple recent hospitalizations. She has been followed by palliative care for pain management of her ischemic toes. Most recently prior to admission, she had started low dose methadone for neuropathic pain. She did not tolerated fentanyl and tramadol was not effective for her pain. She has been having difficulty with severe pain after dialysis and has considered stopping dialysis in the past. She does have a history of colectomy in the past for ulcerative colitis and had been admitted with SBO. Her condition improved and she was discharged to home. However, she developed nausea, vomiting, diarrhea and abdominal pain and returned to hospital with persistent SBO. She currently has NG tube and is tolerating ice chips. She has been on hydromorphone for her pain which is only partially effective. After consideration and discussion with her family, she has decided not to continue dialysis treatments and would like to have a comfort directed approach to care. Allergies Allergy/AdvReac Type Severity Reaction Status Date / Time hydrocodone Allergy Intermediate RASH, HIVES Verified 08/11/20 00:25 Sulfa (Sulfonamide AdvReac Intermediate "SULFA Verified 08/11/20 00:25 Antibiotics) DRUGS": N/V hydrochlorothiazide AdvReac Mild GI Verified 08/11/20 00:25 SYMPTOMS,NAUSEA AND VOMITING spironolactone AdvReac Mild GI Verified 08/11/20 00:25 SYMPTOMS,NAUSEA AND VOMITING Home Medications Medication Instructions Recorded Confirmed Type cholecalciferol (vitamin D3) 50 2,000 units PO QAM 10/16/18 08/11/20 History mcg (2,000 unit) capsule coenzyme Q10 200 mg capsule 200 mg PO QAM cap 10/31/18 08/11/20 History exemestane 25 mg tablet 25 mg PO DAILY@1200 tab 10/31/18 08/11/20 History aspirin [Enteric Coated Aspirin] 81 mg PO HS 01/23/19 08/11/20 History clopidogrel 75 mg tablet 75 mg PO QAM #90 tab 12/29/19 08/11/20 Rx metoprolol succinate 50 mg 50 mg PO HS #90 tab 01/16/20 08/11/20 Rx tablet,extended release 24 hr amlodipine 10 mg PO QAM 02/27/20 08/11/20 History rosuvastatin 10 mg tablet 10 mg PO HS #90 tab 04/08/20 08/11/20 Rx lansoprazole 30 mg capsule,delayed 30 mg PO DAILY #30 cap 06/03/20 08/11/20 Rx release ondansetron 4 mg disintegrating 4 mg PO Q6H PRN #90 tab 06/03/20 08/11/20 Rx tablet acetaminophen 650 mg PO Q4H PRN #30 tab 07/03/20 08/11/20 Rx methadone 5 mg tablet 2.5 mg PO BID 30 Days #30 tab 07/27/20 08/11/20 Rx buspirone 5 mg PO DAILY PRN 08/09/20 08/11/20 History gabapentin 200 mg PO HS 08/09/20 08/11/20 History Patient History Medical History AAA (abdominal aortic aneurysm) PCP monitoring. "Mild fusiform aneurysmal dilatation of the distal thoracic and abdominal aorta." per 02/27/[address] CAD (coronary artery disease) Severe multivessel coronary artery diseaseoccluded distal right, occluded distal circumflex, 90% focal stenosis in mid circumflex into OM1 - follows with Dr. Pfeiffer Cancer of left breast, stage 1 (07/23/15) Chronic diastolic CHF (congestive heart failure) Degenerative joint disease, multiple joints on both sides of body Dyslipidemia ESRD (end stage renal disease) on dialysis started dialysis 12/2019 - [facility] - follows with Dr. Kaur Fibromyalgia GERD (gastroesophageal reflux disease) History of breast cancer Lt lumpectomy/chemo/radiation 2016 History of femoral angiogram History of myocardial infarction silent -- informed in 2018 of evidence of previous [place] History of skin cancer removed History of stent insertion of renal artery Lt History of ulcerative colitis Hypertension Mitral regurgitation Osteoarthritis PAD (peripheral artery disease) Peripheral neuropathy Right renal artery stenosis h/o failed attempt to stent Rt renal artery per pt - atheroemboli to her feet and kidneys Small bowel obstruction Spinal stenosis Surgical History History of anesthesia reaction "easy to put out and hard to wake up" History of breast biopsy History of cardiac catheterization 2017 [place] -abn stress test - no stents History of colectomy No colostomy, anastamosis of small bowel. History of colonoscopy History of esophagogastroduodenoscopy (EGD) History of lumpectomy of left breast History of vascular access device temporary dialysis catheter to Rt chest History of vascular surgery 03/22/2020 DR Pfeiffer [facility] stents to BLLE Family History Mother Colon cancer Cardiac disorder Hypertension Father Colon cancer Cardiac disorder Cancer Family/Other Coronary arteriosclerosis Other No family history of adverse response to anesthesia Social History Smoking Status: Never smoker Second Hand Exposure: No; Hx Alcohol Use: No Hx Substance Use: No Preferred Language: Georgian Communication Ability: Effective Decorating Kiln Operator Required: No Beliefs That Will Affect Care: None marital status: Current Living Situation: Spouse current occupational status: retired How many Children do You have: 1 How many Children do You have Comment: not local. able to assist with care as needed. Feels Safe at Home: Yes Diet Comment: renal diet during the past year weight has: decreased > 10 lbs Assistive Devices: Walker Review of Systems Review of Systems: Acra Symptom Assessment Scale Pain 2/3 Nausea 0/3 Anxiety 1/3 Fatigue 2/3 Drowsiness 0/3 Palliative Performance Score 40% Physical Exam Constitutional: + ill appearing ENMT: NG tube to suction with occassional blood in tube Respiratory: normal respiratory effort; no labored breathing Cardiovascular: pedal edema Gastrointestinal (Abdomen): distended, tympanic Musculoskeletal: Extremities: + muscle atrophy ischemic ulcer right second and third toes, ischemic discoloration left 5th toe Neurologic: awake; not confused Results & Data ([facility]) Vital Signs (Past 12 Hours) Vital Signs Temp Pulse Resp BP Pulse Ox 08/12/20 07:24 98.2 F 115 H 17 122/73 90 PG Care Time/CCT Total # of Minutes Spent Total Time Spent with Patient: Total time spent is greater than 50% in coordination of care (as documented) at patient's floor/unit and/or counseling patient: total time spent 75 minutes with more than 50% of time spent on symptom management, goals of care, hospice. I talked with Adriana about her pain management. She tells me that she is ok with being sedated if it means the pain is better controlled. However, she is planning a visit with family tomorrow "to say goodbye" and wants to be awake and alert for this. We discussed routine dosing of medication for now with her having the option to refuse. After her family visit, will consider opioid infusion. She asked about what to expect and we discussed the usual course for people with ESRD after dialysis is stopped. We talked about where she would want to be at her dying time. She initially did not feel that she wanted to be home out of concern for her family. However, we talked about hospice support at home and she does think that she might want to do that. She will discuss with her family and we will followup to assist with planning and symptom management. Coding Level of Care Code 56274 Inpt Consult Level 4
[2020-08-12] MEDS: HYDROmorphone INJ 0.5 MG/0.5 ML SYR IV SCH ×3 (15:12→22:01)
--- NOTE | 2020-08-12 17:37 | Hospitalist Progress Note ---
Date of Service August 12, 2020 Assessment & Plan (1) ESRD (end stage renal disease) on dialysis: Adriana Arnett is a pleasant 80y/o female with end-stage renal disease and pneumatosis intestinalis currently desiring hospice/comfort care. Pneumatosis intestinalis: - discovered on KUB on admission 08/11, confirmed on CT Abd/Pelvis - does not desire surgical intervention and does not believe she would be able to survive the procedure - deciding with family on route of hospice/comfort care at this point - maintain NG tube on LIWS for comfort and reduced abdominal distension - allows ice chips, and sips as desired by patient - pain regimen as needed - awaiting further decisions on plan of care following discharge from hospital - NSS at 40mL/hr by patient desire to remain better hydrated than what she can take in by mouth ESRD: - no longer desires dialysis given continued worsening, Nephrology aware of desires CODE STATUS: DNR/DNI Dispo: awaiting inpatient/outpatient hospice decision Admission and Anticipated Discharge Date Admission Date: August 11, 2020 Supervising Physician Co-Signing Physician Notes Patient seen and examined with PGY-2 Dr. Escobar. Agree with history, exam findings, assessment and plan of care as outlined with the following updates: In brief, Ms. Arnett is an 80 year old female with history of ESRD on HD, CAD, chronic pain and past colectomy for ulcerative colitis re-admitted with a small bowel obstruction now with intestinal pneumatosis confirmed on CT. NGT was placed in the ED. She is very certain that she does not want surgical intervention for the SBO/intestinal pneumatosis. She discussed with her car salesperson and PCP, Dr. Kaur, that she does not wish to prolong her life with dialysis. She has discussed this extensively in the past with her family. She wants to be comfortable. Having some different abdominal pain this morning. Toes are continuing to be very painful. 1. SBO with intestinal penumatosis. Continue with NGT. Ok to continue with ice chips for comfort. She has been seen by general surgery and surgical options were discussed. She does not wish to have surgery. 2. ESRD on HD, MWF. She has decided that she does not want to continue with dialysis. 3. CAD/PAD. Recent cardiac stent. Ischemic ulcers on toes. Low suspicion for acute ischemia. 4. Chronic pain. Followed by palliative in the outpatient setting. Pt is concerned about drowsiness related to fentanyl and methadone. 5. Goals of care: she would like to remain comfortable. She does not wish to continue with dialysis or have any surgical intervention. She and her family understand that it is likely that without dialysis she may relatively soon. if her GI condition worsens (ie strangulation or perforation), she may become septic as well. She would like to be home and able to enjoy the last days with her family. She does not want pain medication that will make her too drowsy. Her is in agreement with her wishes. Plan at this time would be to discharge to an inpatient hospice facility--family is concerned that they might not be able to manage NG tube or other needs themselves. Ideally, would like to be able to keep the NGT in for comfort. She would like to continue with gentle IVFs as this has helped with her dry mouth. Appreciate any additional suggestions for care going forward from palliative care. Dispo: Ok for family members to be with her outside of visiting hours. Patient and family deciding on home with hospice vs inpatient hospice. Subjective Feeling ok this morning and throughout the day, happy that she is continuing to tolerate ice chips and small sips of things. Re-affirms her desire to remain comfortable and avoid surgical intervention going forward. Desires to stop all things that will limit her comfort. Review of Systems Review of Systems: All systems reviewed & are unremarkable except as noted in Subjective Physical Exam Constitutional: WD/WN, vitals as above Eyes: PERRL, conjunctivae normal, anicteric sclerae Respiratory: normal respiratory effort; no respiratory distress, no labored breathing, no retractions, no cough and no grunting Gastrointestinal (Abdomen): Inspection/Auscultation: abdomen normal to inspection; abdomen not distended, no visible herniation and no visible pulsation Neurologic: PERRL, EOMI, accommodation nl, no face palsy, no dysarthria CN's II-XI intact bilaterally and moves all extremities Psychiatric: Orientation: alert and oriented x 3 Results & Data Results & Data ([facility]) Vital Signs (Past 12 Hours) Vital Signs Temp Pulse Resp BP Pulse Ox 08/12/20 16:51 36.9 C 103 H 19 153/87 H 90 08/12/20 07:24 36.8 C 115 H 17 122/73 90 Resident Activity Tracking Resident Involvement: Resident Care Provided Care Provided: Adult [facility] Medicine
[2020-08-12] MEDS ORDERED: LORazepam 1 MG TAB SL PRN (17:59)
[2020-08-12 22:43] VITALS: TEMP 98.1
[2020-08-13] MEDS: HYDROmorphone INJ 0.5 MG/0.5 ML SYR IV SCH ×3 (01:52→10:43)
[2020-08-13] MEDS: HYDROmorphone INJ 0.5 MG/0.5 ML SYR IV PRN ×2 (03:57→08:15)
[2020-08-13] MEDS ORDERED: STAT IV Infusion **Titration per Protocol STA (10:53)
[2020-08-13] MEDS ORDERED: HYDROmorphone INJ 0.5 MG/0.5 ML SYR IV PRN (10:57)
[2020-08-13] MEDS ORDERED: SODIUM CHLORIDE 0.9% 1000ML 1,000 ML IV SCH (11:00)
[2020-08-13] MEDS ORDERED: HYDROmorphone/NSS 100 MG/100 ML BAG IV SCH (11:00)
--- NOTE | 2020-08-13 11:08 | Palliative Care Progress Note ---
Date of Service August 13, 2020 Assessment & Plan (1) Palliative care encounter: She is tolerating hydromorphone with no excessive sedation and some improvement in pain, We discussed infusion for symptom relief with bolus dosing prn. She is agreeble to this. Will start at 0..25mg/hr with bolus dosing. She is now thinking that she wants to go home but per my discussion with case management, her family is anxious about this. They are meeting with [facility] to discuss available support. She would not be able to have injectable hydromorphone at home but could be managed with infusion. If family is not comfortable with going home, she would remain here where we can address her symtpom management and monitor infusion. Admission and Anticipated Discharge Date Admission Date: August 11, 2020 Subjective Awake and alert. Feels that pain is better controlled but still having pain in her feet. She has had 80 OME of hydromorphone in the last 24 hours. She is taking ice chips and sips of samuel chele with NG to suction. She denies nausea or abdominal pain. Review of Systems Review of Systems: [place] Symptom Assessment Scale Pain 2/3 Dyspnea 0/3 Nausea 0/3 Anxiety 1/3 Fatigue 2/3 Drowsiness 0/3 Palliative Performance Score 30% Physical Exam Constitutional: no acute distress ENMT: NGT to suction with brownish drainage Respiratory: normal respiratory effort; no labored breathing Cardiovascular: progressive ischemia of LE digits, now extended to second to fifth toes left foot, second and third toes right foot Gastrointestinal (Abdomen): mild distension Musculoskeletal: Extremities: + muscle atrophy Neurologic: awake; not confused Results & Data ([facility]) Vital Signs (Past 12 Hours) Vital Signs Temp Pulse Resp BP Pulse Ox 08/13/20 08:02 94 08/13/20 07:24 98.1 F 114 H 20 128/78 91 08/13/20 05:19 90 PG Care Time/CCT Total # of Minutes Spent Total Time Spent with Patient: Total time spent is greater than 50% in coordination of care (as documented) at patient's floor/unit and/or counseling patient: total time spent 40 mintues with more than 50% of time spent on symptom management, goals of care, coordination of care. Coding Level of Care Code 58504 Subseq Hosp Care Lvl 3 Diagnoses Palliative care encounter Z51.5
[2020-08-13] MEDS ORDERED: HYDROmorphone PCA 30 MG/30 ML IV PRN ×2 (11:20→15:45)
[2020-08-13] MEDS ORDERED: HYDROmorphone Bolus from PCA IV PRN (11:25)
[2020-08-13] MEDS: SODIUM CHLORIDE 0.9% 1000ML 1,000 ML IV SCH ×2 (11:52→21:57)
[2020-08-13] MEDS ORDERED: BACLOFEN 10 MG TAB PO PRN (15:18)
[2020-08-13] MEDS ORDERED: chlorproMAZINE HCL 25 MG TAB PO PRN (15:18)
--- NOTE | 2020-08-13 16:43 | Hospitalist Progress Note ---
Date of Service August 13, 2020 Assessment & Plan (1) Palliative care encounter: Adriana Arnett is an inspiring 80 year old female who has battled numerous chronic illnesses including end stage renal disease on diaylsis. Earlier this week she developed a SBO and was hospitalized, treated, then discharged home. She unfortunately returned to hospital with N/V, SBO and new finding of pneumotosis intestinalis on CT. Treatment available was surgical. Patient decided to forgo surgical treatment and to stop dialysis. She wishes to return home on hospice. Family and Adriana agreed to hospice and plan to stay at [facility] with comfort measures over the weekend and then perhaps transfer/discharge to outside hospice. Son and Spouse were unsure that they would be able to provide level of care at home for Adriana as she decompensates and passes away. Will keep in NG tube for comfort She requested IV Fluids and these are running at 80ml/hr, even though will hasten in ESRD on dialysis patient. Dilaudid infusion/titration started Comfort measures ordered Please allow any and all accommodations [facility] could offer to grieving family in very difficulty time. They were requesting to have possible recliner or rest area to sleep as they would like to stay with patient; this is resonable and all owable as could be very near. I personally found Adriana's decision courageous and the words I have had the honor to hear at the end of her life will carry with me forever. Will continue to provide emotional support to Adriana and her family. She is allowed to have any type of liquid per mouth for pleasure/comfort such as popsicles and ice chips. Family is requesting vitals only once per AM, this was ordered; otherwise will stick to traditional comfort measures. (2) Small bowel obstruction: (3) ESRD (end stage renal disease) on dialysis: Adriana Arnett is a pleasant 80y/o female with end-stage renal disease and pneumatosis intestinalis currently desiring hospice/comfort care. Pneumatosis intestinalis: - discovered on KUB on admission 08/11, confirmed on CT Abd/Pelvis - does not desire surgical intervention and does not believe she would be able to survive the procedure - deciding with family on route of hospice/comfort care at this point - maintain NG tube on LIWS for comfort and reduced abdominal distension - allows ice chips, and sips as desired by patient - pain regimen as needed - awaiting further decisions on plan of care following discharge from hospital - NSS at 40mL/hr by patient desire to remain better hydrated than what she can take in by mouth ESRD: - no longer desires dialysis given continued worsening, Nephrology aware of desires CODE STATUS: DNR/DNI Dispo: awaiting inpatient/outpatient hospice decision Admission and Anticipated Discharge Date Admission Date: August 13, 2020 Supervising Physician Co-Signing Physician Notes Attending attestation Pt seen and examined in concert with Dr. Oleary. In agreement with the documented findings as noted in the resident documentation with any exceptions or additions as noted here. Episode of acute shortness of breath today which improved following increased dilaudid use and reassurance. Family with increased concern for recurrent episode requiring further education and planning/coordination of care including overnight stay by family requested. Pneumatosis intestinalis - palliative consultation - tolerating present medication dose well and chatting affably with family. Extensive counseling re: course, impact and supportive care available, desire to be at home if able but understanding of supportive pillars required. ESRD - off HD, nephrology aware Else see resident documentation as noted. Total time spent in the care of this patient, over 50% of which was counseling and coordination of care: 40 minutes. Subjective Adriana notes she would wish to return to own home with hospice, but notes that son and spouse are hesitant for fear of providing adequate comfort. They were to talk to [facility] today. Plan was then made to stay here over the weekend and was started on Dilaudid infusion. Physical Exam Constitutional: cooperative and comfortable very pleasant; talkative; provides profound wisdom on life and . Eyes: PERRL, conjunctivae normal, anicteric sclerae ENMT: NG tube patent left nare Neck: trachea midline Respiratory: normal respiratory effort and able to speak in complete sentences; no respiratory distress and does not use accessory muscles Neurologic: moves all extremities and awake Psychiatric: A+Ox3, euthymic affect Results & Data Results & Data ([facility]) Vital Signs (Past 12 Hours) Vital Signs Temp Pulse Resp BP Pulse Ox 08/13/20 08:02 94 08/13/20 07:24 36.7 C 114 H 20 128/78 91 08/13/20 05:19 90 Resident Activity Tracking Resident Involvement: Resident Care Provided Care Provided: Adult [facility] Medicine
[2020-08-14] MEDS: GLYCOPYRROLATE 0.2 MG/ML VIAL IV PRN ×3 (03:11→14:15)
[2020-08-14] MEDS ORDERED: Nursing to Pharmacy Communication SCH (08:00)
[2020-08-14] MEDS: SODIUM CHLORIDE 0.9% 1000ML 1,000 ML IV SCH (09:14)
--- NOTE | 2020-08-14 09:34 | Palliative Care Progress Note ---
Date of Service August 14, 2020 Assessment & Plan (1) Palliative care encounter: Adriana was able to visit with her family yesterday. They are all supportive of her decision to stop dialysis and focus on her comfort for her remaining days. Hydromorphone infusion basal rate increased due to increased dyspnea and pain this morning. Encouraged bolus doses when she is having pain. Will also add lorazepam routinely for her anxiety and restlessness. Discussed with family what to expect. She is likely to within the next few days. Discussed with RN and family medicine team. (2) Ischemic ulcer of toes on both feet: (3) Chronic diastolic CHF (congestive heart failure): Admission and Anticipated Discharge Date Admission Date: August 13, 2020 Subjective More lethargic today. Two acute episodes of dyspnea and hypoxia in last 24 hours. She talks openly about being ready to . and son are at bedside Review of Systems Review of Systems: [place] Symptom Assessment Scale Pain 1/3 Dyspnea 2/3 Anxiety 1/3 Drowsiness 2/3 Palliative Performance Score 20% Physical Exam Constitutional: + ill appearing, + thin and + lethargic ENMT: NG tube in place Respiratory: audible rhonchi Musculoskeletal: Extremities: + muscle atrophy PG Care Time/CCT Total # of Minutes Spent Total Time Spent with Patient: Total time spent is greater than 50% in coordination of care (as documented) at patient's floor/unit and/or counseling patient: total time spent 40 minutes with more than 50% of time spent on symptom management, prognosis, coordination of care. Coding Level of Care Code 58415 Subseq Hosp Care Lvl 3 Diagnoses Palliative care encounter Z51.5 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 Chronic diastolic CHF (congestive heart failure) I50.32
--- NOTE | 2020-08-14 09:43 | Hospitalist Progress Note ---
Date of Service August 14, 2020 Assessment & Plan (1) Palliative care encounter: Adriana Arnett is an inspiring 80 year old female who has battled numerous chronic illnesses including end stage renal disease on diaylsis. Earlier this week she developed a SBO and was hospitalized, treated, then discharged home. She unfortunately returned to hospital with N/V, SBO and new finding of pneumotosis intestinalis on CT. Treatment available was surgical. Patient decided to forgo surgical treatment and to stop dialysis. She wishes to return home on hospice. Family and Adriana agreed to hospice and plan to stay at [facility] with comfort measures over the weekend and then perhaps transfer/discharge to outside hospice. Son and Spouse were unsure that they would be able to provide level of care at home for Adriana as she decompensates and passes away. Comfort measures - NG tube for comfort -IV fluids discontinued for comfort due to signs of fluid overload, patient previously with low maintenance fluids running for comfort even though she recognized that these may hasten and ESRD. Glycopyrrolate as needed for secretions. May provide scopolamine patch on request if needed -Dilaudid STAPLE PROCESSING MACHINE OPERATOR - BALLET DANCER Orderset including Zofran and Ativan - Please allow any and all accommodations [facility] could offer to grieving family in very difficulty time. They were requesting to have possible recliner or rest area to sleep as they would like to stay with patient; this is resonable and allowable as could be very near. - Family is requesting vitals only once per AM, this was ordered; otherwise will stick to traditional comfort measures. Defer labs Pneumatosis intestinalis NGT for comfort, BALLET DANCER as above CODE STATUS: DNR/DNI Disposition: BALLET DANCER. She is too illmedically frail to leave the hospital at this time, anticipate will likely pass within hours to days Diet: As tolerated for comfort (2) Small bowel obstruction: (3) ESRD (end stage renal disease) on dialysis: Admission and Anticipated Discharge Date Admission Date: August 13, 2020 Supervising Physician Co-Signing Physician Notes Attending attestation Pt seen and examined in concert with Dr. Gonsales. In agreement with the documented findings as noted in the resident documentation with any exceptions or additions as noted here. Rapidly deteriorating responsiveness with increasing tachypnea c/w eminent cardiopulmonary arrest. Family at bedside. Pneumatosis intestinalis - palliative consultation - transition to morphine drip as LOC reduces to maintain comfort in the setting of progressive dyspnea ESRD - off HD, nephrology aware Else see resident documentation as noted. Subjective Adriana is seen at the bedside with her family this morning. She is somnolent, but awakens and answers questions appropriately. She reports that she feels much more tired, and wonders when it will be time for her to go to sleep. She reports she had a wonderful afternoon with her grandson yesterday, but feels much more tired today. Denies pain at time of assessment. Discussed supportive care options and potential medications for anxiety, pain, and nausea for her should they arise with the patient and her family. Review of Systems Review of Systems: Limited by somnolence, CML. Patient endorses fatigue and feeling sleepy, denies pain shortness of breath at time of assessment. Physical Exam Physical Exam: General: Somnolent, awakens to voice and physical stimulation. Answers questions appropriately. Appears ill, emaciated HEENT: Atraumatic, normocephalic. Pulm: Symmetrical chest rise. Audible secretions appreciated without auscultation. Skin: Warm, dry. Resident Activity Tracking Resident Involvement: Resident Care Provided Care Provided: Adult Hospital Medicine
[2020-08-14] MEDS: LORazepam 1 MG/2 ML VIAL IV SCH ×4 (09:55→21:40)
[2020-08-14 11:11] VITALS: BP 130/85; PULSE 123; O2SAT 77
[2020-08-14] MEDS ORDERED: STAT IV Infusion **Titration per Protocol STA (16:06)
[2020-08-14] MEDS ORDERED: MoRPHine SULF/SW 240 MG/240 ML BTL IV SCH (16:15)
--- NOTE | 2020-08-14 17:56 | Discharge Summary ---
Date of Service August 14, 2020 Admission HPI Per Admitting Provider 80 yo F ESRD patient recently discharged for spontaneous resolution of SBO, returning to ER for nausea, vomiting, diarrhea and abdominal pain. She describes being fine at home until she vomited and started having profuse diarrhea. She denies any fevers or chills. No hematemesis, hematochezia. Admission Exam Per Admitting Provider Constitutional: thin elderly woman laying in bed holding her abdomen appearing uncomfortable Eyes: EOMI, pupils equal and reactive bilaterally, no scleral icterus Cardiac: RRR, no murmurs, gallops or rubs. Normal S1, S2 Pulm: CTA BL, no wheezes, rhonchi, crackles or rubs, moving air well throughout both lungs Abd: soft, distended, TTP in RLQ and LUQ, hyperactive bowel sounds, no rebound or guarding Extremities: 2+ peripheral pulses, no edema Feet: large black ischemic section of right great toe that is chronic Neuro: no focal deficits, moving all 4 limbs, A&Ox3 Principal Diagnosis Pneumatosis Intestinalis Discharge Exam Patient , two nurse pronouncement performed at time of Discharge Data Allergies Allergy/AdvReac Type Severity Reaction Status Date / Time hydrocodone Allergy Intermediate RASH, HIVES Verified 08/11/20 00:25 Sulfa (Sulfonamide AdvReac Intermediate "SULFA Verified 08/11/20 00:25 Antibiotics) DRUGS": N/V hydrochlorothiazide AdvReac Mild GI Verified 08/11/20 00:25 SYMPTOMS,NAUSEA AND VOMITING spironolactone AdvReac Mild GI Verified 08/11/20 00:25 SYMPTOMS,NAUSEA AND VOMITING Consultations 08/11/20 00:52 ED Decision to Admit Stat 08/11/20 03:35 Consult Nephrology Routine 08/11/20 11:54 Consult General Surgery Routine 08/11/20 16:13 Consult Palliative Care Routine Ordered Studies 08/11/20 07:56 CT abd pelvis IV con only Urgent Hospital Course (1) Palliative care encounter: *Patient 08/15/2020* Adriana Arnett is an inspiring 80 year old female who has battled numerous chronic illnesses including end stage renal disease on dialysis. Prior to admission had a SBO and was hospitalized, treated, then discharged home. She unfortunately returned to hospital with N/V, SBO and new finding of pneumotosis intestinalis on CT. Treatment available was surgical. Patient decided to forgo surgical treatment and to stop dialysis. Family and Adriana on expressed a desire for hospice with plan to stay at [facility] with comfort measures over the weekend and then perhaps transfer/discharge to outside hospice. A NGT on LIS was used for comfort and to reduce abdonimal distension and comfort orders as below were used. Son and Spouse were unsure that they would be able to provide level of care at home for Adriana as she decompensated and . Patient clinically deteriorated and was not stable for transfer home to hospice services and passed while on comfort measures outlined below. Comfort measures - NG tube for comfort -IV fluids discontinued for comfort due to signs of fluid overload, patient previously with low maintenance fluids running for comfort even though she recognized that these may hasten and ESRD. Glycopyrrolate as needed for secretions. - Dilaudid GRINDER LAP initially used for analgesia. Pt become somnilent and was no longer able to actuate her GRINDER LAP due to mental status, but showed active signs of anxiety, distress, and air hunger including tachypnea and grimacing. Pt was converted to IV morphine drip titrated per protocol. - Zofran and Ativan were administered as needed for nausea and anxiety - Per family request vitals were taken only once per AM and otherwise wished for traditional comfort measures. Pneumatosis intestinalis NGT for comfort, ENGINEERING VICE PRESIDENT as above (2) Small bowel obstruction: (3) ESRD (end stage renal disease) on dialysis: Total Time Total Time Spent Total Time Spent (In Minutes): See Attending Documentation Discharge Plan Discharge Items Patient Disposition: Supervising Physician Co-Signing Physician Notes Attending attestation Pt seen and examined in concert with Dr. Gonsales. In agreement with the documented findings as noted in the resident documentation with any exceptions or additions as noted here. Rapidly deteriorating responsiveness with increasing tachypnea c/w eminent cardiopulmonary arrest. Family at bedside. Pneumatosis intestinalis - palliative consultation - ENGINEERING VICE PRESIDENT - ESRD - off HD, nephrology aware Else see resident documentation as noted. Resident Activity Tracking Resident Involvement: Resident Care Provided Care Provided: Adult Hospital Medicine
[2020-08-15] MEDS: LORazepam 1 MG/2 ML VIAL IV SCH (01:32)
== END 2020-08-15 05:22 | disposition expired | DRG 393 ==
LOC: 2N → ED → SUATTDRO 01:45 → 2N 02:17 → 3E 17:56